=== PATIENT | male | born 1960 | race Two or more races ===

== ENCOUNTER 2024-02-28 08:36 | Inpatient (IN) | payer MEDICAID, OTHER ==
[~2024-02-28] VITALS: Ht 157.5 cm; Wt 75.3 kg
[2024-02-28] MEDS: IOHEXOL 300 MG/ML 100ML BOTTLE IJ ONE (09:28)
[2024-02-28 10:04] LABS: Basophils # (auto) 0 10 ^3/uL (0-0.2); Basophils % (auto) 0.2 % (0.0-2.0); Eosinophils # (auto) 0.4 10 ^3/uL (0-0.8); Eosinophils % (auto) 2.5 % (0.0-7.0); Hematocrit 32.5 % (41.0-53.0); Hemoglobin 11.1 g/dL (13.5-17.5); Lymphocytes # (auto) 1.9 10 ^3/uL (0.4-5.4); Lymphocytes % (auto) 12.2 % (10.0-50.0); Mean Corpuscular Hemoglobin 30.4 pg (28.0-32.0); Mean Corpuscular Hgb Conc. 34.2 g/dL (32.0-36.0); Mean Corpuscular Volume 88.8 fL (80.0-100.0); Monocytes % (auto) 6.3 % (0.0-12.0); Neutrophils # (auto) 12.1 10 ^3/uL (1.6-8.6); Neutrophils % (auto) 78.8 % (37.0-80.0); Platelet Count (auto) 301 10^3/uL (140-450); Red Blood Cells 3.66 10^6/uL (4.5-5.90); Red Cell Distribution Width 14.1 % (11.8-14.3); White Blood Cell 15.4 10^3/uL (4.4-10.8)
[2024-02-28 10:35] LABS: Alanine Aminotransferase 23 U/L (7-40); Albumin 3.7 g/dL (3.2-4.8); Alkaline Phosphatase 106 U/L (46-116); Anion Gap 7 (5-15); Aspartate Aminotransferase 19 U/L (13-40); BUN/Creatinine Ratio 30.7 (10.0-20.0); Bilirubin, Total 0.4 mg/dL (0.2-1.0); Blood Urea Nitrogen 31 mg/dL (9-23); Calcium 8.4 mg/dL (8.7-10.4); Carbon Dioxide 26 mmol/L (20-31); Chloride 100 mmol/L (98-107); Glucose 285 mg/dL (74-106); Lipase 34 U/L (12-53); Potassium 4.7 mmol/L (3.5-5.1); Sodium 133 mmol/L (136-145); Total Protein 7.1 g/dL (5.7-8.2)
[2024-02-28] MEDS: ONDANSETRON HCL 4 MG/2 ML VIAL IV ONE (11:19)
[2024-02-28] MEDS: SODIUM CHLORIDE 0.9% 1,000 ML IV ONE (11:19)
[2024-02-28] MEDS: MORPHINE SULFATE 4 MG/ML SYR/VIAL IV ONE (11:20)
[2024-02-28 15:20] VITALS: PULSE 96; RESP 16; O2SAT 99
[2024-02-28 18:27] LABS: Urine Bacteria None Seen /hpf (None Seen); Urine WBC None Seen /hpf (0 - 3)
[2024-02-28 18:52] LABS: Urine Blood Negative /uL (Negative); Urine Clarity Clear (Clear); Urine Color Light-Yellow (Yellow); Urine Protein, UAD TRACE (Negative); Urine Urobilinogen Normal (Negative); Urine pH 5.5 (5.0-9.0)
[2024-02-28 18:53] LABS: Urine Specific Gravity > 1.050 (1.001-1.035)
[2024-02-28] MEDS ORDERED: ONDANSETRON HCL 4 MG/2 ML VIAL IV PRN (19:00)
[2024-02-28] MEDS ORDERED: MORPHINE SULFATE INJ 2 MG/ml SYRG IV PRN (19:00)
[2024-02-28] MEDS ORDERED: DEXTROSE (50%) 50ML SYRG IV PRN (19:30)
[2024-02-28] MEDS ORDERED: ATOR10TA52 PO (19:32)
[2024-02-28] MEDS ORDERED: hydrALAZINE HCL 20 MG/ML VL IV PRN (19:45)
[2024-02-28] MEDS: SODIUM CHLORIDE 0.9% 1,000 ML IV SCH (20:44)
[2024-02-28 20:57] VITALS: PULSE 89; RESP 19; O2SAT 98
[2024-02-28] MEDS: ACCU-CHEK COMFORT CURVE STRIP VI SCH (22:22)
[2024-02-28] MEDS: ATORVASTATIN 20 MG TAB PO SCH (22:26)
[2024-02-28] MEDS: InsuLIN REG 1unit/0.01ml Soln (100units/ml) SC SCH (22:27)
[2024-02-28 22:45] VITALS: BP 105/70; PULSE 84; RESP 17; TEMP 98.7; O2SAT 98
[2024-02-28] MEDS ORDERED: METF-371 PO (23:02)
[2024-02-28] MEDS ORDERED: GLIP10TA9 PO (23:02)
[2024-02-28] MEDS ORDERED: ASPI-498 OR (23:02)
[2024-02-28] MEDS ORDERED: OMEP-448 PO (23:06)
[2024-02-28] MEDS ORDERED: LINA5TAB PO (23:06)
[2024-02-28] MEDS ORDERED: BENA20TA PO (23:08)
[2024-02-29] VITALS (10 sets, daily range): BP systolic 115–161; BP diastolic 65–71; PULSE 73–115; RESP 16–20; TEMP 97.8–99.3; O2SAT 95–100
[2024-02-29] MEDS: InsuLIN REG 1unit/0.01ml Soln (100units/ml) SC SCH (06:39)
[2024-02-29 08:27] LABS: Basophils # (auto) 0 10 ^3/uL (0-0.2); Basophils % (auto) 0.3 % (0.0-2.0); Eosinophils # (auto) 0.4 10 ^3/uL (0-0.8); Lymphocytes # (auto) 1.5 10 ^3/uL (0.4-5.4); Monocytes # (auto) 0.6 10 ^3/uL (0-1.3); Neutrophils # (auto) 5.4 10 ^3/uL (1.6-8.6)
[2024-02-29 08:33] LABS: Eosinophils % (auto) 4.7 % (0.0-7.0); Hematocrit 22.5 % (41.0-53.0); Hemoglobin 7.9 g/dL (13.5-17.5); Lymphocytes % (auto) 19.6 % (10.0-50.0); Mean Corpuscular Hemoglobin 31.2 pg (28.0-32.0); Mean Corpuscular Hgb Conc. 35.2 g/dL (32.0-36.0); Mean Corpuscular Volume 88.7 fL (80.0-100.0); Monocytes % (auto) 7.2 % (0.0-12.0); Neutrophils % (auto) 68.2 % (37.0-80.0); Platelet Count (auto) 209 10^3/uL (140-450); Red Blood Cells 2.53 10^6/uL (4.5-5.90); White Blood Cell 7.8 10^3/uL (4.4-10.8)
[2024-02-29 08:34] LABS: Chloride 106 mmol/L (98-107); Potassium 4.1 mmol/L (3.5-5.1); Sodium 136 mmol/L (136-145)
[2024-02-29 08:35] LABS: Anion Gap 3 (5-15); Calcium 7.7 mg/dL (8.7-10.4); Carbon Dioxide 27 mmol/L (20-31)
[2024-02-29 08:40] LABS: BUN/Creatinine Ratio 33.3 (10.0-20.0); Blood Urea Nitrogen 23 mg/dL (9-23)
[2024-02-29 08:43] LABS: Glucose 161 mg/dL (74-106)
[2024-02-29] MEDS ORDERED: PANTOPRAZOLE 40 MG/10 ML VIAL INJ IV SCH ×2 (10:00→22:00)
[2024-02-29] MEDS: hydroCHLOROthiazide 25 MG TAB PO SCH (11:00)
[2024-02-29] MEDS: BENAZEPRIL HCL 10 MG TAB PO SCH (11:00)
[2024-02-29 11:11] LABS: INR 1.07 (0.9-1.15); Prothrombin Time 11.3 sec (9.3-11.8)
[2024-02-29 12:11] LABS: Basophils # (auto) 0 10 ^3/uL (0-0.2); Basophils % (auto) 0.2 % (0.0-2.0); Eosinophils # (auto) 0.3 10 ^3/uL (0-0.8); Eosinophils % (auto) 3.5 % (0.0-7.0); Hematocrit 21.4 % (41.0-53.0); Hemoglobin 7.6 g/dL (13.5-17.5); Lymphocytes # (auto) 1.5 10 ^3/uL (0.4-5.4); Lymphocytes % (auto) 15.9 % (10.0-50.0); Mean Corpuscular Hemoglobin 31.1 pg (28.0-32.0); Mean Corpuscular Hgb Conc. 35.3 g/dL (32.0-36.0); Mean Corpuscular Volume 88.3 fL (80.0-100.0); Monocytes # (auto) 0.7 10 ^3/uL (0-1.3); Monocytes % (auto) 8.1 % (0.0-12.0); Neutrophils # (auto) 6.6 10 ^3/uL (1.6-8.6); Neutrophils % (auto) 72.3 % (37.0-80.0); Platelet Count (auto) 222 10^3/uL (140-450); Red Blood Cells 2.43 10^6/uL (4.5-5.90); Red Cell Distribution Width 14.1 % (11.8-14.3); White Blood Cell 9.2 10^3/uL (4.4-10.8)
[2024-02-29] MEDS ORDERED: MIDAZOLAM HCL 2MG/2ML 2ml VIAL (1mg/ml) ONE (15:40)
[2024-02-29] MEDS ORDERED: PROPOFOL 10 MG/ML 20 ML IV ONE (16:01)
[2024-02-29] MEDS ORDERED: ONDANSETRON HCL 4 MG/2 ML VIAL ONE (16:01)
[2024-02-29 18:09] LABS: Hematocrit 17.1 % (41.0-53.0)
[2024-02-29] MEDS: PANTOPRAZOLE 40mg/50ML NS AE 50 ML IV SCH (18:30)
[2024-02-29 18:48] LABS: INR 1.13 (0.9-1.15); Prothrombin Time 11.9 sec (9.3-11.8)
[2024-02-29] MEDS: ONDANSETRON HCL 4 MG/2 ML VIAL IV ONE (22:54)
[2024-02-29] MEDS: ACETAMINOPHEN 650 MG RECT SUPP PR PRN (22:56)
[2024-03-01] VITALS (18 sets, daily range): BP systolic 95–140; BP diastolic 51–78; PULSE 71–100; RESP 15–23; TEMP 97.9–98.9; O2SAT 93–98
[2024-03-01 07:41] LABS: Chloride 110 mmol/L (98-107); Potassium 3.6 mmol/L (3.5-5.1); Sodium 139 mmol/L (136-145)
[2024-03-01 07:42] LABS: Anion Gap 4 (5-15); Carbon Dioxide 25 mmol/L (20-31)
[2024-03-01 07:43] LABS: Calcium 7.3 mg/dL (8.7-10.4)
[2024-03-01 07:47] LABS: BUN/Creatinine Ratio 25.7 (10.0-20.0); Basophils # (auto) 0 10 ^3/uL (0-0.2); Blood Urea Nitrogen 18 mg/dL (9-23); Eosinophils # (auto) 0.2 10 ^3/uL (0-0.8); Glucose 140 mg/dL (74-106); Lymphocytes # (auto) 0.9 10 ^3/uL (0.4-5.4); Mean Corpuscular Hgb Conc. 34.1 g/dL (32.0-36.0); Monocytes # (auto) 0.5 10 ^3/uL (0-1.3); Neutrophils # (auto) 4.7 10 ^3/uL (1.6-8.6); Red Blood Cells 2.25 10^6/uL (4.5-5.90); Red Cell Distribution Width 14.2 % (11.8-14.3); White Blood Cell 6.3 10^3/uL (4.4-10.8)
[2024-03-01 07:49] LABS: Basophils % (auto) 0.3 % (0.0-2.0); Eosinophils % (auto) 2.6 % (0.0-7.0); Mean Corpuscular Hemoglobin 30.3 pg (28.0-32.0); Mean Corpuscular Volume 88.8 fL (80.0-100.0); Monocytes % (auto) 8.1 % (0.0-12.0); Platelet Count (auto) 196 10^3/uL (140-450)
[2024-03-01 07:52] LABS: Hemoglobin 6.8 g/dL (13.5-17.5)
[2024-03-01] MEDS ORDERED: CLINIMIX PER PHARMACY 0 ML IV SCH (09:00)
[2024-03-01 09:49] LABS: Magnesium 1.9 mg/dL (1.6-2.6)
[2024-03-01 09:50] LABS: Phosphorus 2.4 mg/dL (2.4-5.1)
[2024-03-01] MEDS: diphenhdrAMINE HCL 25 MG CAP PO ONE (11:34)
[2024-03-01] MEDS: ACETAMINOPHEN 325 MG TAB PO ONE (11:35)
[2024-03-01] MEDS ORDERED: SODIUM FERR GLUC 62.5MG/5ML 110 ML IV SCH (12:00)
[2024-03-01] MEDS ORDERED: IRON SUCROSE COMPLEX 100 ML IV SCH (12:00)
[2024-03-01] MEDS: SODIUM FERR GLUC 62.5MG/5ML 110 ML IV SCH (13:30)
[2024-03-01] MEDS: phytonadione 10 MG in SODIUM CHL 0.9% 50 ML IV ONE (14:34)
[2024-03-01] MEDS ORDERED: DEXTROSE (50%) 50ML SYRG IV PRN (14:45)
[2024-03-01] MEDS: POTASSIUM PHOSPHATE 22 MEQ in SODIUM CHL 0.9% 100 ML IV ONE (15:51)
[2024-03-01] MEDS: ACCU-CHEK COMFORT CURVE STRIP VI SCH (17:00)
[2024-03-01] MEDS: InsuLIN REG 1unit/0.01ml Soln (100units/ml) SC SCH (17:00)
[2024-03-01 18:33] LABS: Basophils # (auto) 0 10 ^3/uL (0-0.2); Eosinophils # (auto) 0.3 10 ^3/uL (0-0.8); Hemoglobin 8.3 g/dL (13.5-17.5); Lymphocytes # (auto) 1.4 10 ^3/uL (0.4-5.4)
[2024-03-01 18:35] LABS: Basophils % (auto) 0.3 % (0.0-2.0); Eosinophils % (auto) 4.6 % (0.0-7.0); Hematocrit 23.9 % (41.0-53.0); Mean Corpuscular Hgb Conc. 34.5 g/dL (32.0-36.0); Mean Corpuscular Volume 89.6 fL (80.0-100.0); Monocytes # (auto) 0.7 10 ^3/uL (0-1.3); Monocytes % (auto) 10.4 % (0.0-12.0); Neutrophils # (auto) 4.3 10 ^3/uL (1.6-8.6); Neutrophils % (auto) 63.7 % (37.0-80.0); Nucleated Red Blood Cells % 0.2 %; Platelet Count (auto) 194 10^3/uL (140-450); Red Blood Cells 2.67 10^6/uL (4.5-5.90); Red Cell Distribution Width 14.3 % (11.8-14.3); White Blood Cell 6.8 10^3/uL (4.4-10.8)
[2024-03-01] MEDS ORDERED: AMINO ACID INFUSION IN D10W 1,000 ML IV SCH (20:00)
[2024-03-02] VITALS (8 sets, daily range): BP systolic 101–130; BP diastolic 61–71; PULSE 75–83; RESP 16–19; TEMP 97.6–98.7; O2SAT 96–100
[2024-03-02 05:40] LABS: Basophils # (auto) 0 10 ^3/uL (0-0.2); Basophils % (auto) 0.2 % (0.0-2.0); Eosinophils # (auto) 0.1 10 ^3/uL (0-0.8); Eosinophils % (auto) 1.3 % (0.0-7.0); Hematocrit 27.2 % (41.0-53.0); Hemoglobin 9.4 g/dL (13.5-17.5); Lymphocytes # (auto) 1.4 10 ^3/uL (0.4-5.4); Lymphocytes % (auto) 13.9 % (10.0-50.0); Mean Corpuscular Hemoglobin 31.1 pg (28.0-32.0); Mean Corpuscular Hgb Conc. 34.5 g/dL (32.0-36.0); Mean Corpuscular Volume 90.2 fL (80.0-100.0); Monocytes # (auto) 0.7 10 ^3/uL (0-1.3); Monocytes % (auto) 6.9 % (0.0-12.0); Neutrophils # (auto) 7.6 10 ^3/uL (1.6-8.6); Neutrophils % (auto) 77.7 % (37.0-80.0); Nucleated Red Blood Cells % 0.2 %; Platelet Count (auto) 216 10^3/uL (140-450); Red Blood Cells 3.01 10^6/uL (4.5-5.90); Red Cell Distribution Width 14.1 % (11.8-14.3); White Blood Cell 9.8 10^3/uL (4.4-10.8)
[2024-03-02 06:04] LABS: Alanine Aminotransferase 19 U/L (7-40); Alkaline Phosphatase 63 U/L (46-116); Anion Gap 7 (5-15); Aspartate Aminotransferase 25 U/L (13-40); BUN/Creatinine Ratio 16.2 (10.0-20.0); Blood Urea Nitrogen 11 mg/dL (9-23); Calcium 7.6 mg/dL (8.7-10.4); Carbon Dioxide 25 mmol/L (20-31); Chloride 106 mmol/L (98-107); Glucose 142 mg/dL (74-106); Potassium 3.4 mmol/L (3.5-5.1); Sodium 138 mmol/L (136-145)
[2024-03-02 06:05] LABS: Bilirubin, Total 0.4 mg/dL (0.2-1.0); Phosphorus 2.1 mg/dL (2.4-5.1); Total Protein 5.4 g/dL (5.7-8.2)
[2024-03-02] MEDS: POTASSIUM EFFERVESENT TAB 25 MEQ PO ONE (10:32)
[2024-03-02] MEDS ORDERED: SODIUM FERR GLUC 62.5MG/5ML 110 ML IV SCH (12:00)
[2024-03-02] MEDS ORDERED: PANT40TA2 PO (12:45)
== END 2024-03-02 17:09 | disposition home or self-care (01) | DRG 240 ==
LOC: EDBD 08:36 → ER 08:36 → OVERFLOW 18:51 → TELE-CENTR 18:51 → CENTRAL 22:42 → TELE-CENTR 02-29 18:12
PROVIDERS: ADMIT Internal Medicine; ATTEND Emergency Medicine
PROC: 0DB68ZX Excision of Stomach, Via Natural or Artificial Opening Endoscopic, Diagnostic (ICD-10-PCS; 2024-02-29)
PROC: 0DB98ZX Excision of Duodenum, Via Natural or Artificial Opening Endoscopic, Diagnostic (ICD-10-PCS; principal; 2024-02-29 15:31)
PROC: 30233K1 Transfusion of Nonautologous Frozen Plasma into Peripheral Vein, Percutaneous Approach (ICD-10-PCS; 2024-03-01)
PROC: 30233N1 Transfusion of Nonautologous Red Blood Cells into Peripheral Vein, Percutaneous Approach (ICD-10-PCS; 2024-03-02)
DX: C49.A2 Gastrointestinal stromal tumor of stomach (principal); R65.10 Systemic inflammatory response syndrome (SIRS) of non-infectious origin without acute organ dysfunction; D50.9 Iron deficiency anemia, unspecified; E11.65 Type 2 diabetes mellitus with hyperglycemia; E78.5 Hyperlipidemia, unspecified; D63.0 Anemia in neoplastic disease; I10 Essential (primary) hypertension; K29.70 Gastritis, unspecified, without bleeding; K57.30 Diverticulosis of large intestine without perforation or abscess without bleeding; K21.9 Gastro-esophageal reflux disease without esophagitis; Z87.891 Personal history of nicotine dependence; Z80.0 Family history of malignant neoplasm of digestive organs; Z79.82 Long term (current) use of aspirin; Z79.899 Other long term (current) drug therapy
CPT/HCPCS: 36415; 74177; 80048; 80053; 81001; 82962; 83036; 83690; 83735; 84100; 85014; 85018; 85025; 85610; 85730; 86850; 86900; 86901; 86920; 96374; 96375; 99291; G0378; J1815; J2250; J2405; J2704; J3430

== ENCOUNTER 2024-05-10 15:21 | Inpatient (IN) | payer MEDICAID ==
[~2024-05-10] VITALS: Ht 157.5 cm; Wt 68.7 kg
[~2024-05-10 15:21] MED LIST: ATOR10TA52 PO; BENA20TA PO; GLIP10TA9 PO; LINA5TAB PO; METF-371 PO; PANT40TA2 PO
[2024-05-10 16:25] LABS: Hematocrit 31.8 % (41.0-53.0); Hemoglobin 10.3 g/dL (13.5-17.5); Mean Corpuscular Hemoglobin 25.6 pg (28.0-32.0); Mean Corpuscular Hgb Conc. 32.4 g/dL (32.0-36.0); Mean Corpuscular Volume 79.1 fL (80.0-100.0); Platelet Count (auto) 159 10^3/uL (140-450); Red Blood Cells 4.02 10^6/uL (4.5-5.90); Red Cell Distribution Width 16.2 % (11.8-14.3); White Blood Cell 13.3 10^3/uL (4.4-10.8)
[2024-05-10 16:31] LABS: Basophils % (manual) 0 (0.0-2.0); Blast Cells 0; Eosinophils % (manual) 0 (0-7); Metamyelocytes % 0; Myelocytes % 0; Promyelocytes % 0; Reactive Lymphocytes 0
--- NOTE | 2024-05-10 16:34 | DVH ---
Exam: CT CT AB PEL WO CON-NO ORAL OR IV History: abd pain, black stool, h/o stomach CA Comparison Study: 02/28/2024 TECHNIQUE: Multidetector CT of the abdomen was performed from lung bases to pubic symphysis. Imaging was performed without IV contrast. Axial, coronal and sagittal multiplanar reformats were obtained fr om the axial data set by the technologist. Radiation Dose Information: CT Dose: CTDI volume is 7.55 mGy. Dose-length product is 383.34 mGy*cm FINDINGS: Evaluation of solid organs is limited due to lack of intravenous contrast use. Findings: Lung Bases: No acute or significant lung base finding. Normal heart size. No pleural or pericardial effusion. Liver: The liver is normal in size. No focal lesions. Gallbladder and Biliary Tree: Unremarkable Spleen: Unremarkable Pancreas: The pancreas is grossly normal in appearance. Adrenal Glands: Unremarkable Kidneys: 2.3 cm round cortical lesion right kidney changed from 02/28/2024 Bladder: Grossly unremarkable for degree of distention. Bowel: Poor evaluation of the stomach. There is no oral or IV contrast given.. Deformity 2 the stomac h is noted measuring approximately 8 cm which may be the mass previously described. There is also a 3 4 cm mass in the lesser curvature of the stomach previously described on the study of 07/2023. Small bowel and colon are normal in caliber and distribution. The appendix is visualized and appears norm al. Ascites: Absent Lymphadenopathy: No mesenteric, retroperitoneal or periportal lymphadenopathy. Abdominal Wall and Mesentery: Unremarkable. Vasculature: The visualized abdominal aorta is normal in size and caliber. Evaluation of abdominal a nd pelvic vessels is limited due to lack of intravenous contrast. Pelvic Organs: Unremarkable Musculoskeletal: No aggressive focal bony lesions, acute fractures or dislocation. Soft tissues: Unremarkable IMPRESSION: 1. No free air or free fluid. 2. Gastric mass can not be well evaluated without oral and/or IV contrast. Gastric mass was noticed o n prior study of 02/28/2024. There is 8 cm deformity to the stomach which may represent the previousl y noted gastric mass. There is also a 3.823.9 cm mass along the lesser curvature of the stomach noted on prior study of 02/28/2024. 3. There are no intrahepatic masses seen. 4. No calcified gallstones. 5. No nephrolithiasis or hydronephrosis. 6. No findings to suggest bowel obstruction. Radiation optimization: All CT scans at this facility use at least one of these dose optimization te chniques: automated exposure control mA and/or kV adjustment per patient size (includes targeted exa ms where dose is matched to clinical indication) or iterative reconstruction.
[2024-05-10 16:36] LABS: Anion Gap 6 (5-15); BUN/Creatinine Ratio 16.3 (10.0-20.0); Blood Urea Nitrogen 13 mg/dL (9-23); Carbon Dioxide 29 mmol/L (20-31); Chloride 99 mmol/L (98-107); Magnesium 2.1 mg/dL (1.6-2.6); Potassium 3.9 mmol/L (3.5-5.1); Total Protein 6.6 g/dL (5.7-8.2)
[2024-05-10 16:39] LABS: Alkaline Phosphatase 125 U/L (46-116); Aspartate Aminotransferase 96 U/L (13-40); Glucose 177 mg/dL (74-106); Sodium 134 mmol/L (136-145)
--- NOTE | 2024-05-10 16:39 | ED.PDOC ---
GI ASSESSMENT HPI Comments HPI: Poor Historian. 63-year-old male with a history of stomach cancer started chemotherapy this past Sunday. Two two days prior to the chemotherapy he has been having some black stool ongoing since then until today. Patient has left upper quadrant pain from his stomach cancer. Patient is here for pain without any nausea or vomiting or diarrhea. Also has this persistent black stool. Patient is not on blood thinners. VITALS: Temp: 98.9 F RR: 16 02 sat : 97 % on room air HR: 90 BP: 137/76 PMH: stomach cancer, hyperlipidemia, htn, PSH: denies Social history: denies tobacco use, denies ETOH use, denies drug use Medications: metformin, atorvastatin, glipizide, pantoprazole, compazine, Zofran, Allergies: denies REVIEW OF SYSTEMS: CONSTITUTIONAL: Denies acute: fever, diaphoresis, chills, HEAD: Denies acute: headache, photophobia Eyes: Denies acute: Double vision, vision loss, eye pain, eye discharge. EARS: Denies acute: tinnitus, hearing loss, ear discharge, ear pain, THROAT: Denies acute: sore throat, swelling, difficulty swallowing , pain with swallowing, change in voice. NECK: Denies acute: neck pain, neck swelling, stiff neck. HEART: Denies acute : chest pain, palpitations, LUNGS: Denies acute: SOB, wheezing, cough, hemoptysis ABDOMEN: Denies acute: Nausea, Vomiting, diarrhea, hematemesis, hematochezia SKIN: Denies acute: rash, redness, lesions, itchiness. EXTREMITIES: Denies acute: calf pain, numbness, tingling, weakness, denies pain in extremity. Denies acute: Low back pain. Neuro: Denies acute: focal neurological deficit, motor or sensory focal neurological deficit, tremors, seizure like activity, confusion, dizziness, change in mental status, loss of bowel or bladder function, cauda equina like symptoms. : Denies acute: dysuria, hematuria, flank pain, increase in urinary frequency. PSYCH: Denies acute: hallucination, suicidal ideation, homicidal ideation. PHYSICAL EXAM: General: no acute distress, awake and alert. Head: normocephalic, atraumatic. Neck: supple, trachea is midline, no swelling. Throat: Normal phonation. Eyes:, no erythema, no purulent discharge, no proptosis, no icterus. Heart: regular rate, regular rhythm, no significant murmur appreciated. Lungs: no apparent respiratory distress, Able to speak in full sentences. No wheezing, no rhonchi, no crackles. No stridors Clear to auscultation bilaterally. Abdomen: Left upper quadrant tender to palpation, non distended, soft, no guarding, no rebound, + bowel sounds. Neuro: Awake, Alert, oriented to name, self, situation, follows commands GCS=15. Speech is normal. Skin: no petechia, no purpura, no cyanosis, non-pale, not jaundice. Lower extremities: --no - Pitting edema no deformity, no focal swelling, no calf TTP. Makes eye contact. moves all four extremities. Face: no apparent facial droop. Chief Complaint: Abdominal Pain Time Seen by MD: 15:24 Primary Care Provider: MAXIMILIANO ONCOLOGIST, PCP SIMONE Reviewed Notes: Nurses Notes, Allergies Allergies: Coded Allergies: NO KNOWN ALLERGIES (Unverified , 02/28/24) Home Meds Active Scripts Pantoprazole Sodium Sesquihydr (Protonix) 40 Mg Tab, 40 MG PO BID for 30 Days, #60 TAB 2 Refills Prov:KATHERINE HERNANDEZ RESIDENT 03/02/24 Reported Medications Benazepril Hcl (Lotensin) 20 Mg Tab, 1 TAB PO DAILY, #30 TAB 5 Refills 02/28/24 Linagliptin Base (TRADJENTA) 5 Mg Tab, 1 TAB PO DAILY, #90 TAB 1 Refill 02/28/24 Glipizide (Glipizide) 10 Mg Tab, 1 TAB PO DAILY, #60 TAB 5 Refills 02/28/24 Metformin Hydrochloride (Metformin Hcl) 850 Mg Tab, 1 TAB PO DAILY, #60 TAB 5 Refills 02/28/24 Atorvastatin Calcium (ATORVASTATIN CALCIUM) 10 Mg Tab, 10 MG PO HS 02/28/24 Information Source: Patient Mode of Arrival: EMS Past Medical History PAST MEDICAL HISTORY: Denies Surgical History: Denies all surgeries Family History Family History: Reviewed,noncontributory to illness Social History Smoker: Non-Smoker Alcohol: Denies ETOH Use Drugs: Denies Drug Use Was a procedure done? Was a procedure done?: No X-Ray, Labs, Meds, VS Vital Signs Date Time Temp Pulse Resp B/P (MAP) Pulse Ox O2 Delivery O2 Flow Rate FiO2 05/10/24 15:25 98.9 90 16 137/76 (96) 97 05/10/24 15:22 90 Lab Test 05/10/24 17:00 05/10/24 16:05 Range/Units Troponin I High Sensitivity < 3 L < 3 L </=54 ng/L White Blood Count 13.3 H 4.4-10.8 10^3/uL Red Blood Count 4.02 L 4.5-5.90 10^6/uL Hemoglobin 10.3 L 13.5-17.5 g/dL Hematocrit 31.8 L 41.0-53.0 % Mean Corpuscular Volume 79.1 L 80.0-100.0 fL Mean Corpuscular Hemoglobin 25.6 L 28.0-32.0 pg Mean Corpuscular Hemoglobin Concent 32.4 32.0-36.0 g/dL Red Cell Distribution Width 16.2 H 11.8-14.3 % Platelet Count 159 140-450 10^3/uL Mean Platelet Volume 8.3 6.9-10.8 fL Neutrophils (%) (Auto) 37.0-80.0 % Lymphocytes (%) (Auto) 10.0-50.0 % Monocytes (%) (Auto) 0.0-12.0 % Basophils (%) (Auto) 0.0-2.0 % Neutrophils # (Auto) 1.6-8.6 10 ^3/uL Lymphocytes # (Auto) 0.4-5.4 10 ^3/uL Monocytes # (Auto) 0-1.3 10 ^3/uL Differential Total Cells Counted 100.0 100 Neutrophils % (Manual) 72 37.0-80.0 Band Neutrophils % (Manual) 16 Lymphocytes % (Manual) 10 10.0-50.0 Monocytes % (Manual) 2 0-12 Eosinophils % (Manual) 0 0-7 Basophils % (Manual) 0 0.0-2.0 Metamyelocytes % (manual) 0 Myelocytes % (Manual) 0 Promyelocytes % (Manual) 0 Blast Cells % (Manual) 0 Reactive Lymphocytes 0 Platelet Estimate [place] Large Platelets Few Hypochromasia (manual) Slight Anisocytosis (manual) Slight Microcytosis Slight Sodium Level 134 L 136-145 mmol/L Potassium Level 3.9 3.5-5.1 mmol/L Chloride Level 99 98-107 mmol/L Carbon Dioxide Level 29 20-31 mmol/L Anion Gap 6 5-15 Blood Urea Nitrogen 13 9-23 mg/dL Creatinine 0.80 0.700-1.30 mg/dL Glomerular Filtration Rate Calc 101 >90 mL/min BUN/Creatinine Ratio 16.3 10.0-20.0 Serum Glucose 177 H 74-106 mg/dL Lactic Acid Level 1.3 0.4-2.0 mmol/L Calcium Level 8.3 L 8.7-10.4 mg/dL Magnesium Level 2.1 1.6-2.6 mg/dL Total Bilirubin 0.3 0.2-1.0 mg/dL Aspartate Amino Transferase (AST) 96 H 13-40 U/L Alanine Aminotransferase (ALT) 53 H 7-40 U/L Alkaline Phosphatase 125 H 46-116 U/L B-Type Natriuretic Peptide 18.58 0-100 pg/mL Total Protein 6.6 5.7-8.2 g/dL Albumin 3.1 L 3.2-4.8 g/dL Lipase 26 12-53 U/L [place] [id number] Ph: [phone] DIAGNOSTIC IMAGING Diagnostic Imaging Report : [id number] Signed PATIENT: LORETA ELENA ACCT: [id number] UNIT: [id number] : 1960 LOC: ER ROOM / BED: / AGE / SEX: 63 / M ADM STATUS: REG ER SERVICE [id number] ORDERING PHYSICIAN: YOMI BARRERA DO PROCEDURE(s): ABPL - CT AB PEL WO CON-NO ORAL OR IV REASON: abd pain, black stool, h/o stomach CA ORDER NUMBER(s): [id number], ACCESSION NUMBER(s): [id number] Exam: CT CT AB PEL WO CON-NO ORAL OR IV History: abd pain, black stool, h/o stomach CA Comparison Study: 02/28/2024 TECHNIQUE: Multidetector CT of the abdomen was performed from lung bases to pubic symphysis. Imaging was performed without IV contrast. Axial, coronal and sagittal multiplanar reformats were obtained from the axial data set by the technologist. Radiation Dose Information: CT Dose: CTDI volume is 7.55 mGy. Dose-length product is 383.34 mGy*cm FINDINGS: Evaluation of solid organs is limited due to lack of intravenous contrast use. Findings: Lung Bases: No acute or significant lung base finding. Normal heart size. No pleural or pericardial effusion. Liver: The liver is normal in size. No focal lesions. Gallbladder and Biliary Tree: Unremarkable Spleen: Unremarkable Pancreas: The pancreas is grossly normal in appearance. Adrenal Glands: Unremarkable Kidneys: 2.3 cm round cortical lesion right kidney changed from 02/28/2024 Bladder: Grossly unremarkable for degree of distention. Bowel: Poor evaluation of the stomach. There is no oral or IV contrast given.. Deformity 2 the stomach is noted measuring approximately 8 cm which may be the mass previously described. There is also a 3 4 cm mass in the lesser curvature of the stomach previously described on the study of 07/2023. Small bowel and colon are normal in caliber and distribution. The appendix is visualized and appears normal. Ascites: Absent Lymphadenopathy: No mesenteric, retroperitoneal or periportal lymphadenopathy. Abdominal Wall and Mesentery: Unremarkable. Vasculature: The visualized abdominal aorta is normal in size and caliber. Evaluation of abdominal and pelvic vessels is limited due to lack of intravenous contrast. Pelvic Organs: Unremarkable Musculoskeletal: No aggressive focal bony lesions, acute fractures or dislocation. Soft tissues: Unremarkable IMPRESSION: 1. No free air or free fluid. 2. Gastric mass can not be well evaluated without oral and/or IV contrast. Gastric mass was noticed on prior study of 02/28/2024. There is 8 cm deformity to the stomach which may represent the previously noted gastric mass. There is also a 3.823.9 cm mass along the lesser curvature of the stomach noted on prior study of 02/28/2024. 3. There are no intrahepatic masses seen. 4. No calcified gallstones. 5. No nephrolithiasis or hydronephrosis. 6. No findings to suggest bowel obstruction. Radiation optimization: All CT scans at this facility use at least one of these dose optimization techniques: automated exposure control mA and/or kV adjustment per patient size (includes targeted exams where dose is matched to clinical indication) or iterative reconstruction. ATED BY: JUAN ELIZALDE Jr. DO DICTATED DATE/TIME: 05/10/241631 SIGNED BY: JUAN ELIZALDE Jr., DO SIGNED DATE/TIME: 05/10/24 163 CC: Patient Education/Counseling: Diagnosis, Treatment Family Education/Counseling: No Family Present Additional Information Patient presented with the above HPI.----- abdominal pain -workup was initiated. patient was found with the above mentioned diagnosis. the following medications were ordered: IV fluids, fentanyl, pantoprazole, Zofran, the following tests were ordered: troponin x3, EKG x1 UA, magnesium, lactic acid, lipase, CBC, CMP, BNP, CT abdomen and pelvis without contrast Patient ED course and VS have been stabilized. Patient has been reassessed in the ED and remained in a stable condition. Patient has been observed in the ED adequate length of time to insure improvement/stability. Escalation of care considered: Consideration of escalation to observation or admission. patient was ADMITTED to the medicine team for further evaluation and treatment of their presentation. All the reports of any imaging studies that were ordered by myself were reviewed by myself. Departure 1 Departure Time of Disposition: 16:49 Impression: Primary Impression: Melena Additional Impressions: Abdominal pain History of stomach cancer Disposition: ADMITTED INPATIENT Admit to: Tele Condition: Other Discharged With: Self I personally scribed for YOMI BARRERA DO ([email or web address]) on 05/10/24 at 16:39. Janice ctronically submitted by Erika Schmitz (ALICE). I personally scribed for YOMI BARRERA DO ([email or web address]) on 05/10/24 at 19:15. Electronically submitted by Erika OTERO). I personally scribed for YOMI BARRERA DO ([email or web address]) on 05/10/24 at 19:16. Electronically submitted by Erika OTERO). YOMI BARRERA DO May 10, 2024 16:39
[2024-05-10 16:40] LABS: Alanine Aminotransferase 53 U/L (7-40); Albumin 3.1 g/dL (3.2-4.8); Bilirubin, Total 0.3 mg/dL (0.2-1.0); Calcium 8.3 mg/dL (8.7-10.4)
[2024-05-10 16:51] LABS: Lipase 26 U/L (12-53)
[2024-05-10 17:26] LABS: Anisocytosis Slight; Band Neutrophils % (manual) 16; Hypochromia Slight; Large Platelets FEW; Lymphocytes % (manual) 10 (10.0-50.0); Monocytes % (manual) 2 (0-12); Platelet Estimate Adequa
--- NOTE | 2024-05-10 19:01 | ECG ---
[facility] Test Date: 2024-05-10 Test Time: 15:22:14 Pat Name: LORETA ELENA Department: ED Room: 0216 Gender: M Engagement Executive: PERLA : 1960 Requested By: YOMI BARRERA Order Number: [id number] Reading MD: Channing Grimm Measurements Intervals [place] Rate: 90 P: 41 [place]: 141 QRS: 82 QRSD: 75 T: 32 QT: 351 QTc: 430 Interpretive Statements Sinus rhythm Borderline right axis deviation Minimal ST depression, inferior leads Electronically Signed On 05-16-2024 9:58:07 PST by Channing Grimm Please click the below link to view image of tracing.
[2024-05-10] MEDS ORDERED: DEXTROSE (50%) 50ML SYRG IV PRN (20:00)
[2024-05-10] MEDS ORDERED: DOCUSATE SOD 100 MG CAP PO PRN (20:00)
[2024-05-10] MEDS ORDERED: ACETAMINOPHEN 325 MG TAB PO PRN (20:00)
[2024-05-10] MEDS ORDERED: NITROGLYCERIN 0.4 MG SL TAB SL PRN (23:15)
[2024-05-10] MEDS ORDERED: MORPHINE SULFATE INJ 2 MG/ml SYRG IV PRN (23:15)
--- NOTE | 2024-05-10 23:24 | DVHHP2 ---
History of Present Illness Reason for Visit: Acute abdominal pain History of Present Illness Patient is a 63-year-old male with past medical history of colon cancer started on chemotherapy this past Sunday, hyperlipidemia, and hypertension presented to [facility] ED with complaint of acute abdominal pain. Patient reports he has been having some black stools ongoing until today, left upper quadrant abdominal pain, rating 7/10 numeric scale, getting worse today that prompted this visit. Patient was seen and evaluated in the ED, laboratory data shows WBC 13.3, hemoglobin 10.3, hematocrit 31.8, sodium 134, potassium 3.9, BUN 13, creatinine 0.80, glucose 177, BNP 18.58, albumin 3.1, lipase 26, AST 96, ALT 53, troponin. Abdomen/pelvis CT showed no intrahepatic mass, no calcified gallstones, no bowel obstructions. Patient was started on IV antibiotic regimen Rocephin, please see medication orders section in the computer. On my assessme nt, patient denies chest pain, no headache, no dizziness, no shortness of breath, no nausea, no vomiting, no fever, no chills. Patient was admitted for further evaluation and medical management. Past Medical History Colon cancer, hyperlipidemia, HTN Past Surgical History Denies all surgeries Family History Reviewed, noncontributory to the management of this case. Past Social History The patient lives at home, denies smoking, alcohol or illicit drugs abuse. Review of Systems Constitutional: Yes: Weakness; No: Fever, Chills, Sweats, Malaise, Other Eyes: No: Pain, Vision change, Conjunctivae inflammation, Eyelid inflammation, Other, Redness ENT: No: Ear pain, Ear discharge, Nose pain, Nose discharge, Nose congestion, Mouth pain, Mouth swelling, Throat pain, Throat swelling, Other Respiratory: No: Cough, Dry, Shortness of breath, SOB with excertion, Wheezing, Hemoptysis, Pleuritic Pain, Sputum, Wheezing, Other Cardiovascular: No: Chest Pain, Palpitations, Orthopnea, Paroxysmal Noc. Dyspnea, Edema, Lt Headedness, Other Gastrointestinal: Abdominal Pain; No: Nausea, Vomiting, Diarrhea, Constipation, Melena, Hematochezia, Other Genitourinary: No Dysuria, No Frequency, No Incontinence, No Hematuria, No Retention, No Other Musculoskeletal: No: other, neck pain, shoulder pain, arm pain, back pain, hand pain, leg pain, foot pain Skin: No: Rash, Lesions, Jaundice, Bruising, Other Neurological: No: Weakness, Numbness, Incoordination, Change in speech, Confusion, Seizures, Other Allergies: Coded Allergies: NO KNOWN ALLERGIES (Unverified , 02/28/24) Medications Current Medications Medications Dose Ordered Sig/Polina Route Start Time Stop Time Status Last Admin Dose Admin Benazepril HCl 20 mg DAILY PO 05/11/24 10:00 Atorvastatin Calcium 10 mg HS PO 05/10/24 22:00 Pantoprazole Sodium 40 mg DAILY IV 05/11/24 10:00 Diagnostic Test (Pha) 1 strip ACHS 05/10/24 22:00 Insulin Human Regular HS SC 05/10/24 22:00 Insulin Human Regular AC SC 05/11/24 07:00 Dextrose 50 ml UD PRN IV 05/10/24 20:00 Sodium Chloride 1,000 ml @ 60 mls/hr [id number] IV 05/10/24 20:00 Acetaminophen/ Hydrocodone Bitart 1 tab Q4HP PRN PO 05/10/24 20:00 Ondansetron HCl 4 mg Q4HP PRN IV 05/10/24 20:00 Docusate Sodium 100 mg BIDPRN PRN PO 05/10/24 20:00 Acetaminophen 650 mg Q6HP PRN PO 05/10/24 20:00 Morphine Sulfate 2 mg Q4HPRN PRN IV 05/10/24 20:00 Exam Vital Signs Vital Signs Date Time Temp Pulse Resp B/P (MAP) Pulse Ox O2 Delivery O2 Flow Rate FiO2 05/10/24 19:58 109 05/10/24 15:25 98.9 16 137/76 (96) 97 General Appearance: Alert, Oriented X3, Cooperative, No acute distress HEENT: Atraumatic, PERRLA, EOMI, Mucous membr. moist/pink Respiratory: Clear to auscultation, Normal air movement Cardiovascular: Regular rate, Normal S1, Normal S2, No murmurs Abdominal: Normal bowel sounds, Soft, No hepatospenomegaly, No masses, Other (Reports tenderness) Extremities: No clubbing, No cyanosis, No edema, Normal pulses, No tenderness/swelling Skin: No rashes, No breakdown, No significant lesion Neuro: Normal speech, Normal tone, Sensation intact, Cranial nerves 3-12 NL, Reflexes 2+, Other (Generalized weakness) Psych/Mental Status: Mental status NL, Mood NL Labs/Xrays Labs Test 05/10/24 17:00 05/10/24 16:05 Range/Units Troponin I High Sensitivity < 3 L </=54 ng/L White Blood Count 13.3 H 4.4-10.8 10^3/uL Red Blood Count 4.02 L 4.5-5.90 10^6/uL Hemoglobin 10.3 L 13.5-17.5 g/dL Hematocrit 31.8 L 41.0-53.0 % Mean Corpuscular Volume 79.1 L 80.0-100.0 fL Mean Corpuscular Hemoglobin 25.6 L 28.0-32.0 pg Mean Corpuscular Hemoglobin Concent 32.4 32.0-36.0 g/dL Red Cell Distribution Width 16.2 H 11.8-14.3 % Platelet Count 159 140-450 10^3/uL Mean Platelet Volume 8.3 6.9-10.8 fL Neutrophils (%) (Auto) 37.0-80.0 % Lymphocytes (%) (Auto) 10.0-50.0 % Monocytes (%) (Auto) 0.0-12.0 % Basophils (%) (Auto) 0.0-2.0 % Neutrophils # (Auto) 1.6-8.6 10 ^3/uL Lymphocytes # (Auto) 0.4-5.4 10 ^3/uL Monocytes # (Auto) 0-1.3 10 ^3/uL Differential Total Cells Counted 100.0 100 Neutrophils % (Manual) 72 37.0-80.0 Band Neutrophils % (Manual) 16 Lymphocytes % (Manual) 10 10.0-50.0 Monocytes % (Manual) 2 0-12 Eosinophils % (Manual) 0 0-7 Basophils % (Manual) 0 0.0-2.0 Metamyelocytes % (manual) 0 Myelocytes % (Manual) 0 Promyelocytes % (Manual) 0 Blast Cells % (Manual) 0 Reactive Lymphocytes 0 Platelet Estimate [place] Large Platelets Few Hypochromasia (manual) Slight Anisocytosis (manual) Slight Microcytosis Slight Sodium Level 134 L 136-145 mmol/L Potassium Level 3.9 3.5-5.1 mmol/L Chloride Level 99 98-107 mmol/L Carbon Dioxide Level 29 20-31 mmol/L Anion Gap 6 5-15 Blood Urea Nitrogen 13 9-23 mg/dL Creatinine 0.80 0.700-1.30 mg/dL Glomerular Filtration Rate Calc 101 >90 mL/min BUN/Creatinine Ratio 16.3 10.0-20.0 Serum Glucose 177 H 74-106 mg/dL Lactic Acid Level 1.3 0.4-2.0 mmol/L Calcium Level 8.3 L 8.7-10.4 mg/dL Magnesium Level 2.1 1.6-2.6 mg/dL Total Bilirubin 0.3 0.2-1.0 mg/dL Aspartate Amino Transferase (AST) 96 H 13-40 U/L Alanine Aminotransferase (ALT) 53 H 7-40 U/L Alkaline Phosphatase 125 H 46-116 U/L B-Type Natriuretic Peptide 18.58 0-100 pg/mL Total Protein 6.6 5.7-8.2 g/dL Albumin 3.1 L 3.2-4.8 g/dL Lipase 26 12-53 U/L PATIENT: LORETA ELENA ACCT: [id number] UNIT: [id number] : 1960 LOC: ER ROOM / BED: / AGE / SEX: 63 / M ADM STATUS: REG ER SERVICE 1526 ORDERING PHYSICIAN: YOMI BARRERA DO PROCEDURE(s): ABPL - CT AB PEL WO CON-NO ORAL OR IV REASON: abd pain, black stool, h/o stomach CA ORDER NUMBER(s): [id number], ACCESSION NUMBER(s): [id number] Exam: CT CT AB PEL WO CON-NO ORAL OR IV History: abd pain, black stool, h/o stomach CA Comparison Study: 02/28/2024 TECHNIQUE: Multidetector CT of the abdomen was performed from lung bases to pubic symphysis. Imaging was performed without IV contrast. Axial, coronal and sagittal multiplanar reformats were obtained from the axial data set by the technologist. Radiation Dose Information: CT Dose: CTDI volume is 7.55 mGy. Dose-length product is 383.34 mGy*cm FINDINGS: Evaluation of solid organs is limited due to lack of intravenous contrast use. Findings: Lung Bases: No acute or significant lung base finding. Normal heart size. No ple ural or pericardial effusion. Liver: The liver is normal in size. No focal lesions. Gallbladder and Biliary Tree: Unremarkable Spleen: Unremarkable Pancreas: The pancreas is grossly normal in appearance. Adrenal Glands: Unremarkable Kidneys: 2.3 cm round cortical lesion right kidney changed from 02/28/2024 Bladder: Grossly unremarkable for degree of distention. Bowel: Poor evaluation of the stomach. There is no oral or IV contrast given. Deformity 2 the stomach is noted measuring approximately 8 cm which may be the mass previously described. There is also a 3 4 cm mass in the lesser curvature of the stomach previously described on the study of 07/2023. Small bowel and colon are normal in caliber and distribution. The appendix is visualized and appears normal. Ascites: Absent Lymphadenopathy: No mesenteric, retroperitoneal or periportal lymphadenopathy. Abdominal Wall and Mesentery: Unremarkable. Vasculature: The visualized abdominal aorta is normal in size and caliber. Evaluation of abdominal and pelvic vessels is limited due to lack of intravenous contrast. Pelvic Organs: Unremarkable Musculoskeletal: No aggressive focal bony lesions, acute fractures or dislocation. Soft tissues: Unremarkable IMPRESSION: 1. No free air or free fluid. 2. Gastric mass can not be well evaluated without oral and/or IV contrast. Gastric mass was noticed on prior study of 02/28/2024. There is 8 cm deformity to the stomach which may represent the previously noted gastric mass. There is also a 3.823.9 cm mass along the lesser curvature of the stomach noted on prior study of 02/28/2024. 3. There are no intrahepatic masses seen. 4. No calcified gallstones. 5. No nephrolithiasis or hydronephrosis. 6. No findings to suggest bowel obstruction. Assessment/Plan Assessment/Plan Melena Acute abdominal pain Anemia of chronic disease Leukocytosis, unspecified History of Colon cancer Diabetes mellitus with hyperglycemia Plan 1. Admit to telemetry unit 2. Breathing treatment 3. Pain control management 4. IV antibiotic management 5. Management of fluids and electrolytes 6. Consultation for hospitalist 7. Diagnostic test abdomen/pelvis CT 8. DVT prophylaxis-on SCDs 9. Repeat labs CBC, CMP in a.m. 10. Home medication reviewed and reconciled 11. Continue with current medical management 12. Treatment plan discussed with patient and RN. Patient verbalized understanding. Plan discussed with: Patient, Son (At bedside), Other (RN) My Orders Orders - KELVIN OGLESBY DNP Procedure Category Date Status Time Benazepril Hcl Tablet PHA 05/11/24 In Process (Lotensin Tablet) 10:00 Atorvastatin (Lipitor) PHA 05/10/24 In Process 22:00 Pantoprazole PHA 05/11/24 In Process (Protonix) 10:00 Glucose Blood PHA 05/10/24 In Process (Accu-Chek Comfort 22:00 Insulin R (Human) PHA 05/10/24 In Process (Insulin R) 22:00 Insulin R (Human) PHA 05/11/24 In Process (Insulin R) 07:00 Dextrose 50% Syringe PHA 05/10/24 In Process 20:00 Allergies RADHA 05/10/24 In Process 19:54 Code Status CODE 05/10/24 Transmitted 19:54 Sodium Chloride 0.9% PHA 05/10/24 In Process 20:00 Oxygen Per Hour RT 05/10/24 Transmitted 19:54 Hydrocodone-Acet PHA 05/10/24 In Process 5/325mg Tab ([place] 20:00 Ondansetron Hcl PHA 05/10/24 In Process (Zofran) 20:00 Docusate Sodium PHA 05/10/24 In Process Capsule (Colace 20:00 Complete Blood Count LAB 05/11/24 Verified 04:00 Comprehensive LAB 05/11/24 Verified Metabolic Panel 04:00 Condition: Serious RADHA 05/10/24 In Process 19:54 Acetaminophen Tablet PHA 05/10/24 In Process (Tylenol Tablet) 20:00 Clear Liq Diet DIET 05/11/24 Transmitted Breakfast Bedrest With Bathroom RADHA 05/10/24 In Process Privileg 19:54 Morphine Sulfate PHA 05/10/24 In Process Injection 20:00 Sequential RADHA 05/10/24 In Process Compression Device Admit ADMIT 05/10/24 Verified 23:05 Nitroglycerin PHA 05/10/24 Verified Sublingual (Ntrostat 23:15 Morphine Sulfate PHA 05/10/24 Verified Injection 23:15 Notify Of Changes [facility] 05/10/24 Verified From Base 23:05 Cardiac Nurse Specialist For [facility] 05/10/24 Verified 24 Hours 23:05 Emergency Dysrhythmia [facility] 05/10/24 Verified Protocol 23:05 Rhythm Strips Once [facility] 05/10/24 Verified Every Shift 23:05 Oxygen By Nasal RT 05/10/24 Verified Cannula 23:05 Problem List: (1) Melena (2) Acute abdominal pain (3) Leukocytosis, unspecified (4) History of colon cancer (5) Anemia of chronic disease (6) Diabetes mellitus with hyperglycemia Date of Service: May 10, 2024 Billing Provider: KELVIN OGLESBY DNP Common Visit Codes: [id number] INP/OBS CARE (HIGH) KELVIN OGLESBY DNP May 10, 2024 23:24
[2024-05-10] MEDS: SODIUM CHLORIDE 0.9% 1,000 ML IV ONE (23:39)
[2024-05-10] MEDS: ACCU-CHEK COMFORT CURVE STRIP VI SCH (23:40)
[2024-05-10] MEDS: SODIUM CHLORIDE 0.9% 1,000 ML IV SCH (23:41)
[2024-05-11] VITALS (8 sets, daily range): BP systolic 108–151; BP diastolic 47–73; PULSE 76–94; RESP 13–20; TEMP 97.5–98.6; O2SAT 93–97
[2024-05-11] MEDS: fentaNYL CITRATE 100 MCG/2 ML VL IV ONE (00:18)
[2024-05-11] MEDS: ONDANSETRON HCL 4 MG/2 ML VIAL IV ONE (00:18)
[2024-05-11] MEDS: PANTOPRAZOLE 40 MG/10 ML VIAL INJ IV ONE (00:19)
[2024-05-11] MEDS: ATORVASTATIN 20 MG TAB PO SCH (00:19)
[2024-05-11] MEDS: InsuLIN REG 1unit/0.01ml Soln (100units/ml) SC SCH ×2 (00:19→05:57)
[2024-05-11] MEDS: cefTRIAXone 1GM/50ML D5W 50 ML IV ONE (00:20)
[2024-05-11] MEDS: MORPHINE SULFATE INJ 2 MG/ml SYRG IV PRN (04:50)
[2024-05-11 06:05] LABS: Mean Corpuscular Hgb Conc. 32.6 g/dL (32.0-36.0); Red Blood Cells 3.69 10^6/uL (4.5-5.90); White Blood Cell 9.8 10^3/uL (4.4-10.8)
[2024-05-11 06:09] LABS: Hematocrit 29.3 % (41.0-53.0); Hemoglobin 9.5 g/dL (13.5-17.5); Mean Corpuscular Hemoglobin 25.8 pg (28.0-32.0); Mean Corpuscular Volume 79.3 fL (80.0-100.0); Platelet Count (auto) 127 10^3/uL (140-450); Red Cell Distribution Width 16.3 % (11.8-14.3)
[2024-05-11 06:16] LABS: Basophils % (manual) 0 (0.0-2.0); Blast Cells 0; Eosinophils % (manual) 0 (0-7); Metamyelocytes % 0; Myelocytes % 0; Promyelocytes % 0; Reactive Lymphocytes 0
[2024-05-11 06:34] LABS: Anion Gap 7 (5-15); BUN/Creatinine Ratio 17.5 (10.0-20.0); Blood Urea Nitrogen 11 mg/dL (9-23); Carbon Dioxide 26 mmol/L (20-31); Chloride 102 mmol/L (98-107); Glucose 95 mg/dL (74-106); Potassium 3.9 mmol/L (3.5-5.1)
[2024-05-11 06:47] LABS: Alanine Aminotransferase 43 U/L (7-40); Albumin 2.9 g/dL (3.2-4.8); Alkaline Phosphatase 122 U/L (46-116); Aspartate Aminotransferase 71 U/L (13-40); Bilirubin, Total 0.3 mg/dL (0.2-1.0); Calcium 8.1 mg/dL (8.7-10.4); Sodium 135 mmol/L (136-145)
[2024-05-11 07:34] LABS: Band Neutrophils % (manual) 1; Lymphocytes % (manual) 21 (10.0-50.0); Monocytes % (manual) 5 (0-12)
[2024-05-11 07:35] LABS: Anisocytosis Slight; Platelet Estimate Decreased
[2024-05-11] MEDS: PANTOPRAZOLE 40 MG/10 ML VIAL INJ IV SCH ×2 (08:28→21:32)
[2024-05-11] MEDS: BENAZEPRIL HCL 10 MG TAB PO SCH (08:48)
[2024-05-11] MEDS: SODIUM CHLORIDE 0.9% 1,000 ML IV SCH (10:30)
[2024-05-11] MEDS: metroNIDAZOLE 500MG/100ML 100 ML IV SCH (15:21)
[2024-05-11] MEDS: IOHEXOL 300 MG/ML 100ML BOTTLE IJ ONE (15:26)
--- NOTE | 2024-05-11 16:16 | DVH ---
Procedure: CT CT AB PEL WITH IV CON ONLY 05/11/2024 03:33 PM Indication: abdominal pain, h/o GIST stomach Comparison Study: CT scan dated 05/10/2024, 02/28/2024 Technique: Axial images were obtained and reformatted in coronal and sagittal planes. All CT scans at this medical facility are performed using dose modulation techniques as appropriate t o a performed exam including the following: Automated exposure control was utilized; adjustment of th e MA and/or KV according to patient size; and use of iterative reconstruction technique. CT Dose: CTDI volume is 6.5 mGy. Dose-length product is 389.52 mGy*cm FINDINGS: Lower chest: Bibasilar subsegmental atelectasis. Hepatobiliary: Hepatic steatosis. Spleen: Normal in size. Fat stranding at the level of the hilum adjacent to perforated gastric fundu s lesion.. Pancreas: Unremarkable. Adrenal Glands: Unremarkable. tract: The kidneys are normal in size bilaterally without hydronephrosis or nephrolithiasis. The urinary bladder is unremarkable. GI tract: Severe irregular gastric fundus wall thickening measuring up to 2.5 cm in thickness with ev idence of contained perforation at the level of splenic hilum. No free intraperitoneal air or fluid n oted . Left gastric chain lymphadenopathy noted measuring up to 3.9 x 2.7 cm. Smaller perigastric ly mph nodes are seen measuring up to 1.7 x 1 cm. No evidence of bowel obstruction. Circumferential mura l thickening of the large bowel wall most prominent in the descending and proximal sigmoid colon with moderate adjacent fat stranding liquid stool in the lumen of the large bowel. Mild diffuse rectal wa ll thickening noted. The appendix is normal. Lymphatics: Perigastric and left gastric fundal at 30 as above. Vasculature: The abdominal aorta is normal in in caliber. Pelvic Organs: Unremarkable. Bones/soft tissues: No acute abnormality. Multilevel degenerative changes of the lumbar spine noted. Other: None. IMPRESSION: 1. 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 No contrast extravasation is seen. 2. Left gastric and perigastric metastatic lymphadenopathy measuring up to 3.9 x 2.7 cm. 3. Proctocolitis, infectious or inflammatory in nature. Recommend clinical and biochemical correlatio n.
--- NOTE | 2024-05-11 16:53 | DVHPNRES ---
Progress Note Date Seen: May 11, 2024 Resident Creating Document: [email or web address] DelgadoIAN RESIDENT Medical Necessity Reason Pt with a Central, PICC or Fol: No Subjective Review of Systems Patient is a 63 year old male with a past medical history as described below came to the ED with the chief complaint of abdominal pain since the last 2-3 days before admission. Patient was admitted to the hospital in february 2024 for the complaints of 3 months of having intermittent diarrhea, heartburn and acidity and also about 2 weeks of black stools. Patient underwent a Abdomen/pelvic CT with IV contrast which showed showed 6.3 x 8.2 x 6.3 cm mass at the stomach fundus with multiple perigastic lymph nodes with largest measures 3.9 cm. 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 Patient followed with and was started on chemotherapy with the first session of chemotherapy done on sunday05/07/2024. patient reports following chemotherapy he started feeling abd discomfort and had loose stools. reports passing 4-5 dark stools since the last 2 days. Patient was admitted to the hospital for further workup. Past medical history: Hypertension, type 2 diabetes mellitus, hyperlipidemia Past surgical history: Denies Social history: Patient was a former smoker but has not smoked, drank alcohol no drugs over 1 year. Home medications: atorvastatin, benazapril 20mg daily, glipizide 10mg daily, metformin 500mg bid, protonix 40mg bid Review of systems Patient is seen and examined at bedside alert and oriented to time, place and person reports LUQ mild to moderate pain reports 3 black stools since the morning Hgb currently at 9.5g/dl denies nausea, vomiting, shortness of breath, palpitations Objective vital signs Vital Sign Date Time Temp Pulse Resp B/P (MAP) Pulse Ox O2 Delivery O2 Flow Rate FiO2 05/11/24 13:00 98.3 88 19 108/63 (78) 96 98.3 05/11/24 08:00 Room Air* 0 21 Total Intake and Output 05/10/24 05/10/24 05/11/24 15:00 23:00 07:00 Intake Total 1220 ml Balance 1220 ml medications Current Medications Medications Dose Ordered Sig/Polina Route Start Time Stop Time Status Last Admin Dose Admin Benazepril HCl 20 mg DAILY PO 05/11/24 10:00 05/11/24 08:48 20 MG Atorvastatin Calcium 10 mg HS PO 05/10/24 22:00 05/11/24 00:19 10 MG Pantoprazole Sodium 40 mg DAILY IV 05/11/24 10:00 05/11/24 08:28 40 MG Diagnostic Test (Pha) 1 strip ACHS 05/10/24 22:00 05/11/24 11:34 1 STRIP Insulin Human Regular HS SC 05/10/24 22:00 05/11/24 00:19 3 UNITS Insulin Human Regular AC SC 05/11/24 07:00 05/11/24 11:38 3 UNITS Dextrose 50 ml UD PRN IV 05/10/24 20:00 Acetaminophen/ Hydrocodone Bitart 1 tab Q4HP PRN PO 05/10/24 20:00 Ondansetron HCl 4 mg Q4HP PRN IV 05/10/24 20:00 Docusate Sodium 100 mg BIDPRN PRN PO 05/10/24 20:00 Acetaminophen 650 mg Q6HP PRN PO 05/10/24 20:00 Morphine Sulfate 2 mg Q4HPRN PRN IV 05/10/24 20:00 05/11/24 04:50 2 MG Nitroglycerin 0.4 mg Q5MINP PRN SL 05/10/24 23:15 Morphine Sulfate 2 mg Q30M PRN IV 05/10/24 23:15 Ceftriaxone Sodium 50 ml @ 100 mls/hr DAILY@0000 IV 05/12/24 00:00 Sodium Chloride 1,000 ml @ 100 mls/hr Q10H IV 05/11/24 10:30 05/11/24 10:30 100 MLS/HR Metronidazole 100 ml @ 100 mls/hr Q8HR IV 05/11/24 14:00 05/11/24 15:21 100 MLS/HR Examination Physical Examination Gen - mild conjunctival pallor, no icterus, no cyanosis, no clubbing, no LAD, 2+ edema bilateral lower limbs. Skin - Patients skin is slightly pale and dry. HEENT - normocephalic, atraumatic, dry mucous membranes. Neck - full ROM, no LAD, no JVD Pulmonary - B/L vesicular breath sounds, no crackles, no wheezing. cardiovascular - normal S1,S2 heard. no murmurs heard. peripheral pulses radial 2+, pedal 2+. GI - soft abdomen with mild tenderness to palpation in the LUQ. no hepatospleenomegaly. Bowel sounds normoactive Neurological - Patient is A/O X 3. 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 Large, at least 7.1 x 5 cm gastric fundus mass corresponding to known GIST with evidence of interval contained perforation at the level of the splenic hilum with mild adjacent fat stranding but no free intraperitoneal air or fluid in the abdomen or pelvis. No contrast extravasation is seen. 2. Left gastric and perigastric metastatic lymphadenopathy measuring up to 3.9 x 2.7 cm. 3. Proctocolitis, infectious or inflammatory in nature. - stool occult blood positive - stool WBC pending - stool bacterial culture and C.diff toxin pending - on IV fluids - H&H stable , repeat q6hrs - IV metronidazole and IV ceftriaxone - protonix 40mg IV bid - GI consulted # Transaminitis - AST and ALT elevated , trending down - hepatitis panel pending - continue monitoring # Uncontrolled T2DM - On moderate ISS - goal blood glucose 140-180mg/dl # Hypertensive heart disease - continued on benazapril 20mg daily - Bp is WNL # Generalized weakness - physical therapy evaluation pending Goals of care discussed with the patient for over 29 mins. Full code Plan discussed with Emerald Camargo Plan discussed with: Patient, Spouse, Son My Orders My Orders Orders - MAYLIN ORDOÑEZ RESIDENT Procedure Category Date Status Time Urinalysis LAB 05/11/24 Logged 08:37 Drug Screen LAB 05/11/24 Logged 08:37 Sodium Chloride 0.9% PHA 05/11/24 In Process 10:30 Stool Wbc LAB 05/11/24 Logged 10:21 Stool Bacterial MARANDA 05/11/24 Uncollected Culture 10:21 Ova & Parasite Exam MARANDA 05/11/24 Uncollected 10:21 * [facility] Vascular Technologist Sonographer CONS 05/11/24 Transmitted 13:52 Hemoglobin & LAB 05/11/24 Logged Hematocrit 18:00 Hemoglobin & LAB 05/12/24 Verified Hematocrit 00:00 Ct Ab Pel With Iv Con CT 05/11/24 Resulted Only 13:52 Metronidazole PHA 05/11/24 In Process 500mg/100ml (Flagyl 14:00 Clostridium Difficile MARANDA 05/11/24 In Process Toxin 14:49 Pt Request For Service PT 05/11/24 Logged 15:51 Dietary Evaluation Review Comments: 1. Continue diet regime 2. Advance diet as tolerated to CCHO 60g 3. F/u GI Expected Outcomes/Goals: 1. Pt will consume >75% of estimated needs within 2-3 days Date of Service: May 11, 2024 Billing Provider: DEANGELO CAMARGO MD Common Visit Codes: [id number] INP/OBS CARE(HIGH) MAYLIN ORDOÑEZ RESIDENT May 11, 2024 16:53 DEANGELO CAMARGO MD May 11, 2024 23:45
[2024-05-11 17:07] LABS: Urine Bacteria None Seen /hpf (None Seen)
[2024-05-11 17:28] LABS: Opiate Scree,Urine Neg (NEGATIVE)
[2024-05-11 17:29] LABS: Urine Blood Negative /uL (Negative); Urine Clarity Clear (Clear); Urine Color Light-Yellow (Yellow); Urine Protein, UAD Negative (Negative); Urine Urobilinogen Normal (Negative); Urine WBC <1 /hpf (0 - 3); Urine pH 6.5 (5.0-9.0)
[2024-05-11 17:31] LABS: Amphetamine Screen, Urine Neg (NEGATIVE); Barbiturate Scree,Urine Neg (NEGATIVE); Benzodiazephine Screen, Urine Neg (NEGATIVE); Cannabinoid Screen, Urine Neg (NEGATIVE); Cocaine Screen, Urine Neg (NEGATIVE); Phencyclidine Screen, Urine Neg (NEGATIVE)
[2024-05-11 17:36] LABS: Urine Specific Gravity > 1.035 (1.001-1.035)
[2024-05-11 19:12] LABS: Hematocrit 29.6 % (41.0-53.0); Hemoglobin 9.6 g/dL (13.5-17.5)
--- NOTE | 2024-05-11 21:19 | DVHINCON2 ---
Date of service: May 11, 2024 Referring Physician Tarun Samson Reason for Consultation N/V/abd pain History of Present Illness Patient is a 63 year old male with known history of gastric adenocarcinoma diagnosed on a recent endoscopy who has started chemotherapy with Dr. Dc. His first chemotherapy session was on 05/07 24. Following the chemotherapy started feeling abdominal pain this was followed by loose stools about four to 5 times a day and they were somewhat dark in color. Patient presented to the ER for further evaluation and management. Patient has had three dark stool since this morning. His hemoglobin is 9.5. Past Medical History Hyperlipidemia Hypertension Stomach cancer Family History: Hypertension G8 FATHER (HTN) Allergies: Coded Allergies: NO KNOWN ALLERGIES (Unverified , 02/28/24) Home Meds Active Scripts Pantoprazole Sodium Sesquihydr (Protonix) 40 Mg Tab, 40 MG PO BID for 30 Days, #60 TAB 2 Refills Prov:KATHERINE HERNANDEZ RESIDENT 03/02/24 Reported Medications Benazepril Hcl (Lotensin) 20 Mg Tab, 1 TAB PO DAILY, #30 TAB 5 Refills 02/28/24 Linagliptin Base (TRADJENTA) 5 Mg Tab, 1 TAB PO DAILY, #90 TAB 1 Refill 02/28/24 Glipizide (Glipizide) 10 Mg Tab, 1 TAB PO DAILY, #60 TAB 5 Refills 02/28/24 Metformin Hydrochloride (Metformin Hcl) 850 Mg Tab, 1 TAB PO DAILY, #60 TAB 5 Refills 02/28/24 Atorvastatin Calcium (ATORVASTATIN CALCIUM) 10 Mg Tab, 10 MG PO HS 02/28/24 Current Medications Current Medications Medications (Trade) Dose Ordered Sig/Polina Route PRN Reason Start Time Stop Time Status Last Admin Benazepril HCl (Lotensin Tablet) 20 mg DAILY PO 05/11/24 10:00 05/11/24 08:48 Atorvastatin Calcium (Lipitor) 10 mg HS PO 05/10/24 22:00 05/11/24 00:19 Pantoprazole Sodium (Protonix) 40 mg DAILY IV 05/11/24 10:00 05/11/24 19:27 DC 05/11/24 08:28 Diagnostic Test (Pha) (Accu-Chek Comfort Curve T) 1 strip ACHS 05/10/24 22:00 05/11/24 17:07 Insulin Human Regular (InsuLIN R) HS SC 05/10/24 22:00 05/11/24 00:19 Insulin Human Regular (InsuLIN R) AC SC 05/11/24 07:00 05/11/24 17:00 Nitroglycerin (Ntrostat Sublingual) 0.4 mg Q5MINP PRN SL FOR CHEST PAIN 05/10/24 23:15 Morphine Sulfate 2 mg Q30M PRN IV FOR CHEST PAIN 05/10/24 23:15 Ceftriaxone Sodium 50 ml @ 100 mls/hr DAILY@0000 IV 05/12/24 00:00 Sodium Chloride 1,000 ml @ 100 mls/hr Q10H IV 05/11/24 10:30 05/11/24 10:30 Metronidazole 100 ml @ 100 mls/hr Q8HR IV 05/11/24 14:00 05/11/24 15:21 Pantoprazole Sodium (Protonix) 40 mg BID IV 05/11/24 22:00 Vital Signs Vital Signs Date Time Temp Pulse Resp B/P (MAP) Pulse Ox O2 Delivery O2 Flow Rate FiO2 05/11/24 21:07 94 18 118/60 05/11/24 21:00 98.6 97 98.6 05/11/24 08:00 Room Air* 0 21 Physical Exam General Appearance: Alert, Oriented X3, Cooperative, Mild distress HEENT: Atraumatic, PERRLA, EOMI, Mucous membr. moist/pink Respiratory: Clear to auscultation, Normal air movement Cardiovascular: Regular rate, Normal S1, Normal S2, No murmurs Abdominal: Normal bowel sounds, Soft, No hepatospenomegaly, No masses, Other (Reports tenderness) Extremities: No clubbing, No cyanosis, No edema, Normal pulses, No t enderness/swelling Skin: No rashes, No breakdown, No significant lesion Neuro: Normal speech, Normal tone, Sensation intact, Cranial nerves 3-12 NL, Reflexes 2+, Other (Generalized weakness) Psych/Mental Status: Mental status NL, Mood NL Labs/Diagnostic Data Labs Test 05/11/24 18:31 05/11/24 17:00 05/11/24 16:35 05/11/24 14:37 Range/Units Hemoglobin 9.6 L 13.5-17.5 g/dL Hematocrit 29.6 L 41.0-53.0 % Urine Color Light-yellow Yellow Urine Clarity Clear Clear Urine pH 6.5 5.0-9.0 Urine Specific [place] > 1.035 H 1.001-1.035 Urine Protein Negative Negative Urine Ketones Negative Negative Urine Blood Negative Negative /uL Urine Nitrite Negative Negative Urine Bilirubin Negative Negative Urine Urobilinogen Normal Negative mg/dL Urine Leukocyte Esterase Negative Negative /uL Urine RBC None seen 0 - 3 /hpf Urine WBC <1 0 - 3 /hpf Urine Squamous Epithelial Cells None seen <5 /hpf Urine Bacteria None seen None Seen /hpf Urine Glucose Normal Normal mg/dL Urine Opiates Screen Neg NEGATIVE Urine Fentanyl Screen Neg NEGATIVE Urine Barbiturates Screen Neg NEGATIVE Urine Phencyclidine Screen Neg NEGATIVE Urine Amphetamines Screen Neg NEGATIVE Urine Benzodiazepines Screen Neg NEGATIVE Urine Cocaine Screen Neg NEGATIVE Urine Cannabinoids Screen Neg NEGATIVE POC Glucose 152 H 70-106 mg/dl Stool Occult Blood Positive Negative Stool Occult Blood Sample #3 Negative Test 05/11/24 04:50 05/10/24 17:00 05/10/24 16:05 Range/Units White Blood Count 9.8 # 4.4-10.8 10^3/uL Red Blood Count 3.69 L 4.5-5.90 10^6/uL Mean Corpuscular Volume 79.3 L 80.0-100.0 fL Mean Corpuscular Hemoglobin 25.8 L 28.0-32.0 pg Mean Corpuscular Hemoglobin Concent 32.6 32.0-36.0 g/dL Red Cell Distribution Width 16.3 H 11.8-14.3 % Platelet Count 127 L 140-450 10^3/uL Mean Platelet Volume 8.5 6.9-10.8 fL Neutrophils (%) (Auto) 37.0-80.0 % Lymphocytes (%) (Auto) 10.0-50.0 % Monocytes (%) (Auto) 0.0-12.0 % Basophils (%) (Auto) 0.0-2.0 % Neutrophils # (Auto) 1.6-8.6 10 ^3/uL Lymphocytes # (Auto) 0.4-5.4 10 ^3/uL Monocytes # (Auto) 0-1.3 10 ^3/uL Differential Total Cells Counted 100.0 100 Neutrophils % (Manual) 73 37.0-80.0 Band Neutrophils % (Manual) 1 Lymphocytes % (Manual) 21 10.0-50.0 Monocytes % (Manual) 5 0-12 Eosinophils % (Manual) 0 0-7 Basophils % (Manual) 0 0.0-2.0 Metamyelocytes % (manual) 0 Myelocytes % (Manual) 0 Promyelocytes % (Manual) 0 Blast Cells % (Manual) 0 Reactive Lymphocytes 0 Platelet Estimate Decreased Anisocytosis (manual) Slight Microcytosis Slight Sodium Level 135 L 136-145 mmol/L Potassium Level 3.9 3.5-5.1 mmol/L Chloride Level 102 98-107 mmol/L Carbon Dioxide Level 26 20-31 mmol/L Anion Gap 7 5-15 Blood Urea Nitrogen 11 9-23 mg/dL Creatinine 0.63 L 0.700-1.30 mg/dL Glomerular Filtration Rate Calc 108 >90 mL/min BUN/Creatinine Ratio 17.5 10.0-20.0 Serum Glucose 95 74-106 mg/dL Calcium Level 8.1 L 8.7-10.4 mg/dL Total Bilirubin 0.3 0.2-1.0 mg/dL Aspartate Amino Transferase (AST) 71 H 13-40 U/L Alanine Aminotransferase (ALT) 43 H 7-40 U/L Alkaline Phosphatase 122 H 46-116 U/L Total Protein 6.0 5.7-8.2 g/dL Albumin 2.9 L 3.2-4.8 g/dL Troponin I High Sensitivity < 3 L </=54 ng/L Large Platelets Few Hypochromasia (manual) Slight Lactic Acid Level 1.3 0.4-2.0 mmol/L Magnesium Level 2.1 1.6-2.6 mg/dL B-Type Natriuretic Peptide 18.58 0-100 pg/mL Lipase 26 12-53 U/L CT SCAN ABD PELVIS IMPRESSION: 1. Large, at least 7.1 x 5 cm gastric fundus mass corresponding to known GIST with evidence of interval contained perforation at the level of the splenic hilum with mild adjacent fat stranding but no free intraperitoneal air or fluid in the abdomen or pelvis. No contrast extravasation is seen. 2. Left gastric and perigastric metastatic lymphadenopathy measuring up to 3.9 x 2.7 cm. 3. Proctocolitis, infectious or inflammatory in nature. Recommend clinical and biochemical correlation. Problems(with codes): (1) Anemia of chronic disease (2) Diabetes mellitus with hyperglycemia (3) History of colon cancer (4) Leukocytosis, unspecified (5) Acute abdominal pain (6) History of stomach cancer (7) Abdominal pain (8) Melena (9) Gastric malignant neoplasm (10) Dark stools (11) Nausea and vomiting (12) Weakness Plan/Recommendation Plan Keep this patient NPO IV fluid hydration IV TPN IV PPI Patient has a contained perforation at the site of the malignancy with surrounding inflammatory changes Patient has mild melena related to his gastric malignancy and enterocolitis due to chemotherapy Continue supportive care, broad-spectrum antibiotics Oral Carafate when the patient is able to tolerate p.o. Continue to monitor labs Prognosis is guarded Consider surgical consult Plan discussed with: Other (None) BYRON NEWSOME MD May 11, 2024 21:19
[2024-05-11] MEDS ORDERED: CLINIMIX PER PHARMACY 0 ML IV SCH (21:30)
[2024-05-12] VITALS (8 sets, daily range): BP systolic 120–154; BP diastolic 65–77; PULSE 79–90; RESP 16–19; TEMP 97.9–98.7; O2SAT 97–100
[2024-05-12] MEDS: cefTRIAXone 1GM/50ML D5W 50 ML IV SCH (00:25)
[2024-05-12 01:07] LABS: Hematocrit 28.5 % (41.0-53.0); Hemoglobin 9.1 g/dL (13.5-17.5)
[2024-05-12 07:02] LABS: Red Cell Distribution Width 16.2 % (11.8-14.3)
[2024-05-12 07:04] LABS: Hematocrit 27.4 % (41.0-53.0); Mean Corpuscular Hemoglobin 25.9 pg (28.0-32.0); Mean Corpuscular Hgb Conc. 32.7 g/dL (32.0-36.0); Platelet Count (auto) 124 10^3/uL (140-450); Red Blood Cells 3.46 10^6/uL (4.5-5.90)
[2024-05-12 07:14] LABS: Alanine Aminotransferase 36 U/L (7-40); Alkaline Phosphatase 105 U/L (46-116); Anion Gap 7 (5-15); Carbon Dioxide 26 mmol/L (20-31); Chloride 103 mmol/L (98-107); Glucose 83 mg/dL (74-106); LDL Cholesterol 29 mg/dL (< 100); Potassium 3.7 mmol/L (3.5-5.1); Triglycerides 83 mg/dL (< 150)
[2024-05-12 07:15] LABS: Cholesterol 84 mg/dL (< 200)
[2024-05-12 07:25] LABS: Basophils % (manual) 0 (0.0-2.0); Blast Cells 0; Metamyelocytes % 0; Myelocytes % 0; Promyelocytes % 0; Reactive Lymphocytes 0
[2024-05-12 07:27] LABS: Albumin 2.7 g/dL (3.2-4.8); Aspartate Aminotransferase 50 U/L (13-40); Bilirubin, Total 0.3 mg/dL (0.2-1.0); Blood Urea Nitrogen 6 mg/dL (9-23); Calcium 8.1 mg/dL (8.7-10.4); HDL Cholesterol 38 mg/dL (40-59); Sodium 136 mmol/L (136-145); Total Protein 5.5 g/dL (5.7-8.2)
[2024-05-12 08:06] LABS: Band Neutrophils % (manual) 1; Eosinophils % (manual) 4 (0-7); Lymphocytes % (manual) 22 (10.0-50.0); Monocytes % (manual) 7 (0-12); Platelet Estimate Decreased
[2024-05-12] MEDS ORDERED: DEXTROSE (50%) 50ML SYRG IV PRN (09:30)
[2024-05-12 09:53] LABS: Hepatitis B Surface Antigen Negative (Negative)
[2024-05-12 10:01] LABS: Hepatitis A Ab IgM Negative; Hepatitis B Core IgM Negative (Negative); Hepatitis C Antibody Negative (Negative)
[2024-05-12] MEDS ORDERED: DEXTROSE (50%) 50ML SYRG IV SCH (10:30)
[2024-05-12] MEDS: InsuLIN REG 1unit/0.01ml Soln (100units/ml) SC SCH (12:00)
[2024-05-12] MEDS: Ensure HIGH Protein Chocolate 8oz Bottle PO SCH (12:00)
[2024-05-12] MEDS ORDERED: ACCU-CHEK COMFORT CURVE STRIP VI SCH (12:00)
[2024-05-12] MEDS: ACCU-CHEK COMFORT CURVE STRIP VI SCH (12:00)
[2024-05-12] MEDS ORDERED: InsuLIN REG 1unit/0.01ml Soln (100units/ml) SC SCH (12:00)
--- NOTE | 2024-05-12 13:20 | DVHINCON2 ---
Date of service: May 12, 2024 History of Present Illness 63-year-old male with a recently diagnosed with gastric GIST tumor who just started his chemotherapy on May 07 and noticed left upper quadrant abdom inal pain with melena. Patient denies any fevers, chills, nausea or vomiting. Patient has been able to tolerate diet up until admission. Past Medical History Gastric GIST. Hypertension. Past Surgical History None Family History: Hypertension G8 FATHER (HTN) Family History Noncontributory Social History No alcohol, tobacco, drug use Allergies: Coded Allergies: NO KNOWN ALLERGIES (Unverified , 02/28/24) Home Meds Active Scripts Pantoprazole Sodium Sesquihydr (Protonix) 40 Mg Tab, 40 MG PO BID for 30 Days, #60 TAB 2 Refills Prov:KATHERINE HERNANDEZ RESIDENT 03/02/24 Reported Medications Benazepril Hcl (Lotensin) 20 Mg Tab, 1 TAB PO DAILY, #30 TAB 5 Refills 02/28/24 Linagliptin Base (TRADJENTA) 5 Mg Tab, 1 TAB PO DAILY, #90 TAB 1 Refill 02/28/24 Glipizide (Glipizide) 10 Mg Tab, 1 TAB PO DAILY, #60 TAB 5 Refills 02/28/24 Metformin Hydrochloride (Metformin Hcl) 850 Mg Tab, 1 TAB PO DAILY, #60 TAB 5 Refills 02/28/24 Atorvastatin Calcium (ATORVASTATIN CALCIUM) 10 Mg Tab, 10 MG PO HS 02/28/24 Current Medications Current Medications Medications (Trade) Dose Ordered Sig/Polina Route PRN Reason Start Time Stop Time Status Last Admin Ceftriaxone Sodium 50 ml @ 100 mls/hr DAILY@0000 IV 05/12/24 00:00 05/12/24 00:25 Metronidazole 100 ml @ 100 mls/hr Q8HR IV 05/11/24 14:00 05/12/24 06:24 Pantoprazole Sodium (Protonix) 40 mg BID IV 05/11/24 22:00 05/12/24 08:37 Amino Acids 0 ml @ 0 mls/hr PER PHARMACY IV 05/11/24 21:30 Diagnostic Test (Pha) (Accu-Chek Comfort Curve T) 1 strip Q6HR 05/12/24 12:00 05/12/24 10:14 DC Insulin Human Regular (InsuLIN R) Q6HR SC 05/12/24 12:00 05/12/24 10:14 DC Dextrose 50 ml UD PRN IV Blood Sugar LESS THAN 60 05/12/24 09:30 05/12/24 10:14 DC Enteral Nutritional Formula (Ensure High Protein) 240 ml TIDWM PO 05/12/24 12:00 Diagnostic Test (Pha) (Accu-Chek Comfort Curve T) 1 strip Q6HR 05/12/24 12:00 Insulin Human Regular (InsuLIN R) FOLLOW SLIDING SCALE Q6HR SC 05/12/24 12:00 Dextrose 50 ml UD IV 05/12/24 10:30 Amino Acids/ Electrolytes/ Dextrose 1,000 ml @ 41 mls/hr DAILY@2200 IV 05/12/24 22:00 Vital Signs Vital Signs Date Time Temp Pulse Resp B/P (MAP) Pulse Ox O2 Delivery O2 Flow Rate FiO2 05/12/24 09:00 98.1 81 16 126/73 (90) 100 98.1 05/12/24 07:49 Room Air* 0 21 Physical Exam GEN: Age-appropriate male in no acute distress. Alert. HEENT: Normocephalic atraumatic. Moist mucous membranes. Anicteric sclerae. CV: RRR Respiratory: CTAB ABD: Soft. Very minimal left upper quadrant tenderness to palpation without guarding or rebound. Nondistended. CT of the abdomen and pelvis: Large at least 7.1 x 5 cm gastric fundal mass corresponding to known GIST with evidence of interval contained perforation of the level of the splenic hilum with mild adjacent fat stranding but no free intraperitoneal air or fluid in the abdomen or pelvis. No contrast extravasation. Left gastric and perigastric metastatic lymphadenopathy measuring up to 3.9 x 2.7 cm. Proctocolitis. Labs/Diagnostic Data Labs Test 05/12/24 11:10 05/12/24 05:55 05/11/24 17:00 05/11/24 14:37 Range/Units POC Glucose 105 70-106 mg/dl White Blood Count 5.0 # 4.4-10.8 10^3/uL Red Blood Count 3.46 L 4.5-5.90 10^6/uL Hemoglobin 9.0 L 13.5-17.5 g/dL Hematocrit 27.4 L 41.0-53.0 % Mean Corpuscular Volume 79.0 L 80.0-100.0 fL Mean Corpuscular Hemoglobin 25.9 L 28.0-32.0 pg Mean Corpuscular Hemoglobin Concent 32.7 32.0-36.0 g/dL Red Cell Distribution Width 16.2 H 11.8-14.3 % Platelet Count 124 L 140-450 10^3/uL Mean Platelet Volume 8.3 6.9-10.8 fL Neutrophils (%) (Auto) 37.0-80.0 % Lymphocytes (%) (Auto) 10.0-50.0 % Monocytes (%) (Auto) 0.0-12.0 % Basophils (%) (Auto) 0.0-2.0 % Neutrophils # (Auto) 1.6-8.6 10 ^3/uL Lymphocytes # (Auto) 0.4-5.4 10 ^3/uL Monocytes # (Auto) 0-1.3 10 ^3/uL Differential Total Cells Counted 100.0 100 Neutrophils % (Manual) 66 37.0-80.0 Band Neutrophils % (Manual) 1 Lymphocytes % (Manual) 22 10.0-50.0 Monocytes % (Manual) 7 0-12 Eosinophils % (Manual) 4 0-7 Basophils % (Manual) 0 0.0-2.0 Metamyelocytes % (manual) 0 Myelocytes % (Manual) 0 Promyelocytes % (Manual) 0 Blast Cells % (Manual) 0 Reactive Lymphocytes 0 Platelet Estimate Decreased Microcytosis Slight Sodium Level 136 136-145 mmol/L Potassium Level 3.7 3.5-5.1 mmol/L Chloride Level 103 98-107 mmol/L Carbon Dioxide Level 26 20-31 mmol/L Anion Gap 7 5-15 Blood Urea Nitrogen 6 L 9-23 mg/dL Creatinine 0.60 L 0.700-1.30 mg/dL Glomerular Filtration Rate Calc 110 >90 mL/min BUN/Creatinine Ratio 10.0 10.0-20.0 Serum Glucose 83 74-106 mg/dL Calcium Level 8.1 L 8.7-10.4 mg/dL Phosphorus Level 2.7 2.4-5.1 mg/dL Magnesium Level 2.0 1.6-2.6 mg/dL Total Bilirubin 0.3 0.2-1.0 mg/dL Aspartate Amino Transferase (AST) 50 H 13-40 U/L Alanine Aminotransferase (ALT) 36 7-40 U/L Alkaline Phosphatase 105 46-116 U/L Total Protein 5.5 L 5.7-8.2 g/dL Albumin 2.7 L 3.2-4.8 g/dL Triglycerides Level 83 < 150 mg/dL Cholesterol Level 84 < 200 mg/dL LDL Cholesterol 29 < 100 mg/dL HDL Cholesterol 38 L 40-59 mg/dL Hepatitis A IgM Antibody Negative Hepatitis B Surface Antigen Negative Negative Hepatitis B Core IgM Antibody Negative Negative Hepatitis C Antibody Negative Negative Urine Color Light-yellow Yellow Urine Clarity Clear Clear Urine pH 6.5 5.0-9.0 Urine Specific [place] > 1.035 H 1.001-1.035 Urine Protein Negative Negative Urine Ketones Negative Negative Urine Blood Negative Negative /uL Urine Nitrite Negative Negative Urine Bilirubin Negative Negative Urine Urobilinogen Normal Negative mg/dL Urine Leukocyte Esterase Negative Negative /uL Urine RBC None seen 0 - 3 /hpf Urine WBC <1 0 - 3 /hpf Urine Squamous Epithelial Cells None seen <5 /hpf Urine Bacteria None seen None Seen /hpf Urine Glucose Normal Normal mg/dL Urine Opiates Screen Neg NEGATIVE Urine Fentanyl Screen Neg NEGATIVE Urine Barbiturates Screen Neg NEGATIVE Urine Phencyclidine Screen Neg NEGATIVE Urine Amphetamines Screen Neg NEGATIVE Urine Benzodiazepines Screen Neg NEGATIVE Urine Cocaine Screen Neg NEGATIVE Urine Cannabinoids Screen Neg NEGATIVE Stool Occult Blood Positive Negative Stool Occult Blood Sample #3 Negative Stool for White Cells None seen Test 05/11/24 04:50 05/10/24 17:00 05/10/24 16:05 Range/Units Anisocytosis (manual) Slight Troponin I High Sensitivity < 3 L </=54 ng/L Large Platelets Few Hypochromasia (manual) Slight Lactic Acid Level 1.3 0.4-2.0 mmol/L B-Type Natriuretic Peptide 18.58 0-100 pg/mL Lipase 26 12-53 U/L Microbiology Date/Time Source Procedure Growth Status 05/11/24 14:37 Stool Clostridium difficile Toxin Assay - Final Complete Assessment 1. 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 We will get an upper GI with Gastrografin to assess whether there really is a perforation or whether this is extension of the tumor. If there was no obvious perforation then he may resume p.o. diet and resume chemotherapy. Plan discussed with: Patient RITA RICARDO MD May 12, 2024 13:20
--- NOTE | 2024-05-12 15:48 | DVHPNRES ---
Progress Note Date Seen: May 12, 2024 Resident Creating Document: CRISTOBAL DEAN RESDIENT Medical Necessity Reason Pt with a Central, PICC or Fol: No Subjective Review of Systems Patient is a 63 year old male with a past medical history as described below came to the ED with the chief complaint of abdominal pain since the last 2-3 days before admission. Patient was admitted to the hospital in february 2024 for the complaints of 3 months of having intermittent diarrhea, heartburn and acidity and also about 2 weeks of black stools. Patient underwent a Abdomen/pelvic CT with IV contrast which showed showed 6.3 x 8.2 x 6.3 cm mass at the stomach fundus with multiple perigastic lymph nodes with largest measures 3.9 cm. 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 Patient followed with and was started on chemotherapy with the first session of chemotherapy done on sunday05/07/2024. patient reports following chemotherapy he started feeling abd discomfort and had loose stools. reports passing 4-5 dark stools since the last 2 days. Patient was admitted to the hospital for further workup. Past medical history: Hypertension, type 2 diabetes mellitus, hyperlipidemia Past surgical history: Denies Social history: Patient was a former smoker but has not smoked, drank alcohol no drugs over 1 year. Home medications: atorvastatin, benazapril 20mg daily, glipizide 10mg daily, metformin 500mg bid, protonix 40mg bid Today, 05/12, the patient seen and examined at the bedside. The patient is still complaining of abdominal pain and watery brown diarrhea. Patient reports: No new complaints Changes from previous H/P or p: No Changes Objective vital signs Vital Sign Date Time Temp Pulse Resp B/P (MAP) Pulse Ox O2 Delivery O2 Flow Rate FiO2 05/12/24 13:00 97.9 89 16 140/73 (95) 99 97.9 05/12/24 07:49 Room Air* 0 21 Total Intake and Output 05/11/24 05/11/24 05/12/24 15:00 23:00 07:00 Intake Total 1000 ml 1395 ml Balance 1000 ml 1395 ml medications Current Medications Medications Dose Ordered Sig/Polina Route Start Time Stop Time Status Last Admin Dose Admin Benazepril HCl 20 mg DAILY PO 05/11/24 10:00 05/11/24 08:48 20 MG Atorvastatin Calcium 10 mg HS PO 05/10/24 22:00 05/11/24 21:32 10 MG Acetaminophen/ Hydrocodone Bitart 1 tab Q4HP PRN PO 05/10/24 20:00 Ondansetron HCl 4 mg Q4HP PRN IV 05/10/24 20:00 Docusate Sodium 100 mg BIDPRN PRN PO 05/10/24 20:00 Acetaminophen 650 mg Q6HP PRN PO 05/10/24 20:00 Morphine Sulfate 2 mg Q4HPRN PRN IV 05/10/24 20:00 05/11/24 21:07 2 MG Nitroglycerin 0.4 mg Q5MINP PRN SL 05/10/24 23:15 Morphine Sulfate 2 mg Q30M PRN IV 05/10/24 23:15 Ceftriaxone Sodium 50 ml @ 100 mls/hr DAILY@0000 IV 05/12/24 00:00 05/12/24 00:25 100 MLS/HR Sodium Chloride 1,000 ml @ 100 mls/hr Q10H IV 05/11/24 10:30 05/12/24 05:18 100 MLS/HR Metronidazole 100 ml @ 100 mls/hr Q8HR IV 05/11/24 14:00 05/12/24 14:23 100 MLS/HR Pantoprazole Sodium 40 mg BID IV 05/11/24 22:00 05/12/24 08:37 40 MG Amino Acids 0 ml @ 0 mls/hr PER PHARMACY IV 05/11/24 21:30 Enteral Nutritional Formula 240 ml TIDWM PO 05/12/24 12:00 Diagnostic Test (Pha) 1 strip Q6HR 05/12/24 12:00 Insulin Human Regular FOLLOW SLIDING SCALE Q6HR SC 05/12/24 12:00 Dextrose 50 ml UD IV 05/12/24 10:30 Amino Acids/ Electrolytes/ Dextrose 1,000 ml @ 41 mls/hr DAILY@2200 IV 05/12/24 22:00 Examination General Appearance: Alert, Oriented X3, Cooperative, with mild distress HEENT: Atraumatic, PERRLA, EOMI, Mucous membrane moist/pink Respiratory: Clear to auscultation, Normal air movement Cardiovascular: Regular rate, Normal S1, Normal S2, No murmurs, no chest wall tenderness Abdominal: Mild abdominal tenderness Extremities: No clubbing, No cyanosis, No edema, Normal pulses, No tenderness/swelling Skin: No rashes, No breakdown, No significant lesion Neuro: Normal gait, Normal speech, Strength at 5/5 X4 ext, Normal tone, Sensation intact, Cranial nerves 3-12 NL, Reflexes 2+ Psych/Mental Status: Mental status NL, Mood NL laboratory and microbiology Laboratory Tests 05/12/24 05:55 Test 05/12/24 05:55 Range/Units Serum Glucose 83 74-106 mg/dL Microbiology Date/Time Source Procedure Growth Status 05/11/24 14:37 Stool Clostridium difficile Toxin Assay - Final Complete Labs and/or images reviewed: Labs reviewed by me, Image(s) reviewed by me Problem List/Assessment/Plan Problem List/Assessment/Plan This is a 63-year-old male with past medical history of hypertension, diabetes type 2, hyperlipidemia, presented to the hospital with abdominal pain and black stool since 2-3 days. Admitted on 05/10. Acute GI bleeding, likely upper GI Stomach mass, likely GIST tumor, likely metastasis to the perigastric lymph nodes Possible gastric perforation/contained Proctocolitis, likely infectious/inflammatory Patient is followed by Dr. Dc, started chemotherapy on 05/07, since that time has abdominal pain and black diarrhea Upper GI endoscopy, from 03/03, shows 7-8 cm gastric mass in the fundus which was friable polypoid with central ulceration with oozing and with increased bleeding CT scan with IV contrast, shows 7.1 x 5 cm gastric fundus mass corresponding to known GIST with evidence of interval contained perforation at the level of the splenic hilum with mild adjacent fat stranding but no free intraperitoneal air or fluid in the abdomen or pelvis. No contrast extravasation is seen, left gastric and perigastric metastatic lymphadenopathy measuring up to 3.9 x 2.7 cm, proctocolitis (infectious or inflammatory C difficile toxin is negative Stool occult blood is positive GI is on the board, recommended IV PPI Surgery is on the board, planned for Gastrografin study for tomorrow Check stool ova and parasite Stool bacterial culture IV normal saline 100 mL/hour Continue ceftriaxone, started on 05/12 Continue metronidazole, started 05/11 Transaminitis AST/ALT raised, downtrending Mild Hyponatremia Monitoring [id number] Malnutrition Albumin is 3.1 Amino acid infusion Uncontrolled diabetes mellitus Hb A1c, from 02/27 shows 7.7 Insulin regular, according to mild sliding scale Hypertension Hypertensive heart Disease Continue benazepril 20 mg daily Check vitals q.6 hours Dyslipidemia HDL is 30 Continue atorvastatin 10 mg daily Moderate anemia, microcytic Hypochromic Thrombocytopenia Monitoring DIET: NPO, because of the patient intolerance of oral intake, TPN is given DVT prophylax: Due to possible GI bleeding, anticoagulant is not indicated, SCDs GI prophylaxis: Protonix 40 mg IV b.i.d. Bowel regimen: Patient has diarrhea, no indication for laxative Code status: Full code, goal of care discussed more than 20 minutes with the patient. DISPOSITION: Med/surg Patient's status discussed with with the patient and nurse. Case discussed with Dr. Mann Plan discussed with: Patient, Other (RN) My Orders My Orders Orders - CRISTOBAL DEAN RESDIAYAN Procedure Category Date Status Time Complete Blood Count LAB 05/13/24 Verified 04:00 Dietary Evaluation Review Comments: 1. Continue diet regime 2. Advance diet as tolerated to CCHO 60g 3. F/u GI Expected Outcomes/Goals: 1. Pt will consume >75% of estimated needs within 2-3 days Date of Service: May 12, 2024 Billing Provider: JULIETA YOUNG MD Common Visit Codes: 67786-[id number] INP/OBS CARE(HIGH) Secondary Visit Codes: 97878-[id number] CARE PLAN 30 MINUTES CRISTOBAL DEAN RESDIENT May 12, 2024 15:48 JULIETA YOUNG MD May 14, 2024 09:16
[2024-05-12] MEDS: AMINO ACID INFUSION IN D10W 1,000 ML IV SCH (23:06)
[2024-05-13] VITALS (7 sets, daily range): BP systolic 111–148; BP diastolic 72–81; PULSE 78–99; RESP 18–19; TEMP 97.7–98.9; O2SAT 95–98
[2024-05-13 07:23] LABS: Platelet Count (auto) 124 10^3/uL (140-450); White Blood Cell 6.4 10^3/uL (4.4-10.8)
[2024-05-13 07:24] LABS: Alanine Aminotransferase 34 U/L (7-40); Alkaline Phosphatase 109 U/L (46-116); Anion Gap 6 (5-15); BUN/Creatinine Ratio 11.3 (10.0-20.0); Carbon Dioxide 27 mmol/L (20-31); Chloride 102 mmol/L (98-107); Glucose 104 mg/dL (74-106); Magnesium 1.8 mg/dL (1.6-2.6); Potassium 3.5 mmol/L (3.5-5.1)
[2024-05-13 07:25] LABS: Bilirubin, Total 0.4 mg/dL (0.2-1.0); Phosphorus 2.7 mg/dL (2.4-5.1)
[2024-05-13 07:27] LABS: Hematocrit 28.1 % (41.0-53.0); Hemoglobin 9.1 g/dL (13.5-17.5); Mean Corpuscular Hemoglobin 25.6 pg (28.0-32.0); Mean Corpuscular Hgb Conc. 32.5 g/dL (32.0-36.0); Mean Corpuscular Volume 78.8 fL (80.0-100.0); Red Blood Cells 3.56 10^6/uL (4.5-5.90); Red Cell Distribution Width 16.1 % (11.8-14.3)
[2024-05-13 07:38] LABS: Albumin 2.7 g/dL (3.2-4.8); Aspartate Aminotransferase 53 U/L (13-40); Blood Urea Nitrogen 7 mg/dL (9-23); Sodium 135 mmol/L (136-145); Total Protein 5.4 g/dL (5.7-8.2)
[2024-05-13 08:14] LABS: Basophils % (manual) 0 (0.0-2.0); Eosinophils % (manual) 0 (0-7); Myelocytes % 0; Promyelocytes % 0; Reactive Lymphocytes 0
[2024-05-13 10:09] LABS: Band Neutrophils % (manual) 8; Blast Cells 1; Lymphocytes % (manual) 14 (10.0-50.0); Metamyelocytes % 2; Monocytes % (manual) 10 (0-12); Platelet Estimate Decreased
--- NOTE | 2024-05-13 11:49 | DVHPN2 ---
Progress Note - Dictate Date Seen: May 13, 2024 Medical Necessity Reason Pt with a Central, PICC or Fol: No Subjective E: no major events o/n. c/o min LUQ pain. no N/V vital signs Vital Sign Date Time Temp Pulse Resp B/P (MAP) Pulse Ox O2 Delivery O2 Flow Rate FiO2 05/13/24 11:33 80 16 141/77 05/13/24 08:57 97.7 98 97.7 05/13/24 07:38 Room Air* 0 21 Total Intake and Output 05/12/24 05/12/24 05/13/24 15:00 23:00 07:00 Intake Total 100 ml 100 ml 1437 ml Balance 100 ml 100 ml 1437 ml medications Current Medications Medications Dose Ordered Sig/Polina Route Start Time Stop Time Status Last Admin Dose Admin Benazepril HCl 20 mg DAILY PO 05/11/24 10:00 05/13/24 07:52 20 MG Atorvastatin Calcium 10 mg HS PO 05/10/24 22:00 05/12/24 22:04 10 MG Acetaminophen/ Hydrocodone Bitart 1 tab Q4HP PRN PO 05/10/24 20:00 Ondansetron HCl 4 mg Q4HP PRN IV 05/10/24 20:00 Acetaminophen 650 mg Q6HP PRN PO 05/10/24 20:00 Morphine Sulfate 2 mg Q4HPRN PRN IV 05/10/24 20:00 05/13/24 11:33 2 MG Morphine Sulfate 2 mg Q30M PRN IV 05/10/24 23:15 Ceftriaxone Sodium 50 ml @ 100 mls/hr DAILY@0000 IV 05/12/24 00:00 05/12/24 23:59 100 MLS/HR Sodium Chloride 1,000 ml @ 100 mls/hr Q10H IV 05/11/24 10:30 05/13/24 06:05 100 MLS/HR Metronidazole 100 ml @ 100 mls/hr Q8HR IV 05/11/24 14:00 05/13/24 06:03 100 MLS/HR Pantoprazole Sodium 40 mg BID IV 05/11/24 22:00 05/13/24 07:52 40 MG Amino Acids 0 ml @ 0 mls/hr PER PHARMACY IV 05/11/24 21:30 Diagnostic Test (Pha) 1 strip Q6HR 05/12/24 12:00 05/13/24 11:46 1 STRIP Insulin Human Regular FOLLOW SLIDING SCALE Q6HR SC 05/12/24 12:00 05/13/24 11:46 2 UNITS Dextrose 50 ml UD IV 05/12/24 10:30 Amino Acids/ Electrolytes/ Dextrose 1,000 ml @ 41 mls/hr DAILY@2200 IV 05/12/24 22:00 05/12/24 23:06 41 MLS/HR objective GEN: NAD ABD: soft. min LUQ TTP. no guarding. laboratory and microbiology Laboratory Tests 05/13/24 05:07 Test 05/13/24 05:07 Range/Units Serum Glucose 104 74-106 mg/dL Assessment/Plan A: 1. 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 UGI today. if it shows no perforation/leak, then start po. 2. best chance for this patient is to get chemo to shrink the tumor and then surgery. Dietary Evaluation Review Comments: 1. Continue diet regime 2. Advance diet as tolerated to CCHO 60g 3. F/u GI Expected Outcomes/Goals: 1. Pt will consume >75% of estimated needs within 2-3 days Plan discussed with: Patient, LUCIA HolderShadi Samuel MD May 13, 2024 11:49
--- NOTE | 2024-05-13 14:44 | DVHPNRES ---
Progress Note Date Seen: May 13, 2024 Resident Creating Document: CRISTOBAL DEAN RESDIENT Medical Necessity Reason Pt with a Central, PICC or Fol: No Subjective Review of Systems Patient is a 63 year old male with a past medical history as described below came to the ED with the chief complaint of abdominal pain since the last 2-3 days before admission. Patient was admitted to the hospital in february 2024 for the complaints of 3 months of having intermittent diarrhea, heartburn and acidity and also about 2 weeks of black stools. Patient underwent a Abdomen/pelvic CT with IV contrast which showed showed 6.3 x 8.2 x 6.3 cm mass at the stomach fundus with multiple perigastic lymph nodes with largest measures 3.9 cm. 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 Patient followed with and was started on chemotherapy with the first session of chemotherapy done on sunday05/07/2024. patient reports following chemotherapy he started feeling abd discomfort and had loose stools. reports passing 4-5 dark stools since the last 2 days. Patient was admitted to the hospital for further workup. Past medical history: Hypertension, type 2 diabetes mellitus, hyperlipidemia Past surgical history: Denies Social history: Patient was a former smoker but has not smoked, drank alcohol no drugs over 1 year. Home medications: atorvastatin, benazapril 20mg daily, glipizide 10mg daily, metformin 500mg bid, protonix 40mg bid Today, 05/13, the patient seen and examined at the bedside. The patient is still complaining of abdominal pain. Patient reports: No new complaints, Feels better Changes from previous H/P or p: No Changes Objective vital signs Vital Sign Date Time Temp Pulse Resp B/P (MAP) Pulse Ox O2 Delivery O2 Flow Rate FiO2 05/13/24 13:00 98.6 80 18 138/72 (94) 98 98.6 05/13/24 07:38 Room Air* 0 21 Total Intake and Output 05/12/24 05/12/24 05/13/24 15:00 23:00 07:00 Intake Total 100 ml 100 ml 1437 ml Balance 100 ml 100 ml 1437 ml medications Current Medications Medications Dose Ordered Sig/Polina Route Start Time Stop Time Status Last Admin Dose Admin Benazepril HCl 20 mg DAILY PO 05/11/24 10:00 05/13/24 07:52 20 MG Atorvastatin Calcium 10 mg HS PO 05/10/24 22:00 05/12/24 22:04 10 MG Acetaminophen/ Hydrocodone Bitart 1 tab Q4HP PRN PO 05/10/24 20:00 Ondansetron HCl 4 mg Q4HP PRN IV 05/10/24 20:00 Acetaminophen 650 mg Q6HP PRN PO 05/10/24 20:00 Morphine Sulfate 2 mg Q4HPRN PRN IV 05/10/24 20:00 05/13/24 11:33 2 MG Morphine Sulfate 2 mg Q30M PRN IV 05/10/24 23:15 Ceftriaxone Sodium 50 ml @ 100 mls/hr DAILY@0000 IV 05/12/24 00:00 05/12/24 23:59 100 MLS/HR Sodium Chloride 1,000 ml @ 100 mls/hr Q10H IV 05/11/24 10:30 05/13/24 06:05 100 MLS/HR Metronidazole 100 ml @ 100 mls/hr Q8HR IV 05/11/24 14:00 05/13/24 06:03 100 MLS/HR Pantoprazole Sodium 40 mg BID IV 05/11/24 22:00 05/13/24 07:52 40 MG Amino Acids 0 ml @ 0 mls/hr PER PHARMACY IV 05/11/24 21:30 Diagnostic Test (Pha) 1 strip Q6HR 05/12/24 12:00 05/13/24 11:46 1 STRIP Insulin Human Regular FOLLOW SLIDING SCALE Q6HR SC 05/12/24 12:00 05/13/24 11:46 2 UNITS Dextrose 50 ml UD IV 05/12/24 10:30 Amino Acids/ Electrolytes/ Dextrose 1,000 ml @ 41 mls/hr DAILY@2200 IV 05/12/24 22:00 05/12/24 23:06 41 MLS/HR Examination General Appearance: Alert, Oriented X3, Cooperative, with mild distress HEENT: Atraumatic, PERRLA, EOMI, Mucous membrane moist/pink Respiratory: Clear to auscultation, Normal air movement Cardiovascular: Regular rate, Normal S1, Normal S2, No murmurs, no chest wall tenderness Abdominal: Mild abdominal tenderness Extremities: No clubbing, No cyanosis, No edema, Normal pulses, No tenderness/swelling Skin: No rashes, No breakdown, No significant lesion Neuro: Normal gait, Normal speech, Strength at 5/5 X4 ext, Normal tone, Sensation intact, Cranial nerves 3-12 NL, Reflexes 2+ Psych/Mental Status: Mental status NL, Mood NL laboratory and microbiology Laboratory Tests 05/13/24 05:07 Test 05/13/24 05:07 Range/Units Serum Glucose 104 74-106 mg/dL Microbiology Date/Time Source Procedure Growth Status 05/11/24 14:37 Stool Stool Culture - Preliminary Resulted 05/11/24 14:37 Stool Shiga Toxin I & II - Final Resulted Labs and/or images reviewed: Labs reviewed by me, Image(s) reviewed by me Problem List/Assessment/Plan Problem List/Assessment/Plan This is a 63-year-old male with past medical history of hypertension, diabetes type 2, hyperlipidemia, presented to the hospital with abdominal pain and black stool since 2-3 days. Admitted on 05/10. 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 Dc, started chemotherapy on 05/07, since that time has abdominal pain and black diarrhea Upper GI endoscopy, from 03/03, shows 7-8 cm gastric mass in the fundus which was friable polypoid with central ulceration with oozing and with increased bleeding CT scan with IV contrast, shows 7.1 x 5 cm gastric fundus mass corresponding to known adenocarcinoma with evidence of interval contained perforation at the level of the splenic hilum with mild adjacent fat stranding but no free intraperitoneal air or fluid in the abdomen or pelvis. No contrast extravasation is seen, left gastric and perigastric metastatic lymphadenopathy measuring up to 3.9 x 2.7 cm, proctocolitis (infectious or inflammatory C difficile toxin is negative Stool occult blood is positive GI is on the board, recommended IV PPI Surgery is on the board, planned for Gastrografin study for tomorrow Check stool ova and parasite Stool bacterial culture IV normal saline 100 mL/hour Continue ceftriaxone, started on 05/12 Continue metronidazole, started 05/11 Transaminitis AST/ALT raised, downtrending Mild Hyponatremia Monitoring [id number] Malnutrition Albumin is 3.1 Amino acid infusion Uncontrolled diabetes mellitus Hb A1c, from 02/27 shows 7.7 Insulin regular, according to mild sliding scale Hypertension Hypertensive heart Disease Continue benazepril 20 mg daily Check vitals q.6 hours Dyslipidemia HDL is 30 Continue atorvastatin 10 mg daily Moderate anemia, microcytic Hypochromic, almost stable Thrombocytopenia Monitoring DIET: NPO, because of the patient intolerance of oral intake, TPN is given DVT prophylax: Due to possible GI bleeding, anticoagulant is not indicated, SCDs GI prophylaxis: Protonix 40 mg IV b.i.d. Bowel regimen: Patient has diarrhea, no indication for laxative Code status: Full code, goal of care discussed more than 20 minutes with the patient. DISPOSITION: Med/surg Patient's status discussed with with the patient, the patient's sister on bedside, and nurse. Case discussed with Dr. Gomez Plan discussed with: Patient (Sister), Other (RN) Dietary Evaluation Review Comments: 1. Continue diet regime 2. Advance diet as tolerated to CCHO 60g 3. F/u GI Expected Outcomes/Goals: 1. Pt will consume >75% of estimated needs within 2-3 days Date of Service: May 13, 2024 Billing Provider: KRYSTA GOMEZ MD Common Visit Codes: [id number] INP/OBS CARE(HIGH) QUEENIEANNE-MARIEQUEENIE BEAVERAaron RESDIENT May 13, 2024 14:44 KRYSTA GOMEZ MD May 13, 2024 18:11
[2024-05-13] MEDS ORDERED: POTASSIUM CHL 20MEQ/100ML 100 ML IV ONE (16:30)
[2024-05-13] MEDS: GASTROGRAFIN 120 ML SOL ONE (17:20)
[2024-05-13] MEDS: EZ-GAS II GRANULES (RADIOLOGY USE) PO ONE (17:20)
--- NOTE | 2024-05-13 17:57 | DVHPN2 ---
Progress Note - Dictate Date Seen: May 13, 2024 Medical Necessity Reason Pt with a Central, PICC or Fol: No Subjective 63-year-old male diagnosed with gastric adenocarcinoma with surrounding lymph node involvement S/P 1st chemotherapy round Patient seen at bedside he is resting comfortably he denies any nausea vomiting Minimal abdominal pain Patient is scheduled for upper GI series this evening vital signs Vital Sign Date Time Temp Pulse Resp B/P (MAP) Pulse Ox O2 Delivery O2 Flow Rate FiO2 05/13/24 16:14 80 18 137/70 05/13/24 13:00 98.6 98 98.6 05/13/24 07:38 Room Air* 0 21 Total Intake and Output 05/12/24 05/12/24 05/13/24 15:00 23:00 07:00 Intake Total 100 ml 100 ml 1437 ml Balance 100 ml 100 ml 1437 ml medications Current Medications Medications Dose Ordered Sig/Polina Route Start Time Stop Time Status Last Admin Dose Admin Benazepril HCl 20 mg DAILY PO 05/11/24 10:00 05/13/24 07:52 20 MG Atorvastatin Calcium 10 mg HS PO 05/10/24 22:00 05/12/24 22:04 10 MG Acetaminophen/ Hydrocodone Bitart 1 tab Q4HP PRN PO 05/10/24 20:00 Ondansetron HCl 4 mg Q4HP PRN IV 05/10/24 20:00 Acetaminophen 650 mg Q6HP PRN PO 05/10/24 20:00 Morphine Sulfate 2 mg Q4HPRN PRN IV 05/10/24 20:00 05/13/24 16:14 2 MG Morphine Sulfate 2 mg Q30M PRN IV 05/10/24 23:15 Ceftriaxone Sodium 50 ml @ 100 mls/hr DAILY@0000 IV 05/12/24 00:00 05/12/24 23:59 100 MLS/HR Sodium Chloride 1,000 ml @ 100 mls/hr Q10H IV 05/11/24 10:30 05/13/24 06:05 100 MLS/HR Metronidazole 100 ml @ 100 mls/hr Q8HR IV 05/11/24 14:00 05/13/24 17:06 100 MLS/HR Pantoprazole Sodium 40 mg BID IV 05/11/24 22:00 05/13/24 07:52 40 MG Amino Acids 0 ml @ 0 mls/hr PER PHARMACY IV 05/11/24 21:30 Diagnostic Test (Pha) 1 strip Q6HR 05/12/24 12:00 05/13/24 11:46 1 STRIP Insulin Human Regular FOLLOW SLIDING SCALE Q6HR SC 05/12/24 12:00 05/13/24 11:46 2 UNITS Dextrose 50 ml UD IV 05/12/24 10:30 Amino Acids/ Electrolytes/ Dextrose 1,000 ml @ 41 mls/hr DAILY@2200 IV 05/12/24 22:00 05/12/24 23:06 41 MLS/HR Potassium Chloride 100 ml @ 50 mls/hr Q2H IV 05/13/24 16:45 05/13/24 20:44 objective General Appearance: Alert, Oriented X3, Cooperative, Mild distress HEENT: Atraumatic, PERRLA, EOMI, Mucous membr. moist/pink Respiratory: Clear to auscultation, Normal air movement Cardiovascular: Regular rate, Normal S1, Normal S2, No murmurs Abdominal: Normal bowel sounds, Soft, No hepatospenomegaly, No masses, Other (Reports tenderness) Extremities: No clubbing, No cyanosis, No edema, Normal pulses, No tenderness/swelling Skin: No rashes, No breakdown, No significant lesion Neuro: Normal speech, Normal tone, Sensation intact, Cranial nerves 3-12 NL, Reflexes 2+, Other (Generalized weakness) Psych/Mental Status: Mental status NL, Mood NL laboratory and microbiology Laboratory Tests 05/13/24 05:07 Test 05/13/24 05:07 Range/Units Serum Glucose 104 74-106 mg/dL Problems(with codes): (1) Abnormal finding on GI tract imaging (2) Gastric malignant neoplasm (3) Dark stools (4) Nausea and vomiting (5) Weakness (6) Anemia of chronic disease (7) Acute abdominal pain Prognosis Plan Continue supportive care IV fluid hydration IV Protonix 40 mg q.12 hours Patient is currently NPO If the upper GI x-ray does not show any extravasation of contrast then we can start clear liquid diet and advance slowly Dietary Evaluation Review Comments: 1. Continue diet regime 2. Advance diet as tolerated to CCHO 60g 3. F/u GI Expected Outcomes/Goals: 1. Pt will consume >75% of estimated needs within 2-3 days Plan discussed with: Patient BYRON NEWSOME MD May 13, 2024 17:57
[2024-05-13] MEDS: ONDANSETRON HCL 4 MG/2 ML VIAL IV PRN (18:20)
[2024-05-13] MEDS: POTASSIUM CHL 20MEQ/100ML 100 ML IV SCH (18:24)
--- NOTE | 2024-05-13 20:26 | DVH ---
XY UGI WITH GASTROGRAFIN, HISTORY: poss gastric perforation COMPARISON: CT 05/11 PROCEDURE: A baker head radiograph was obtained prior to the procedure. Gastrografin administered orally, and radiographs were obtained under intermittent fluoroscopic observation. Total fluoroscopic time w as 0.9 minutes. DAP 483 . FINDINGS: The esophagus was normal in caliber with no stricture, filling defect or wall irregularity demonstrat ed. Normal esophageal peristalsis was observed. There was prompt passage of contrast through a normal appearing gastroesophageal junction. The stomac h was able to be distended. There is contour irregularity and mass lesions seen at the gastric fundus . An defect is seen extending posteriorly along the gastric fundus. The duodenal bulb appears unremarkable. Contrast flowed into more distal loops of small bowel, with n o abnormality identified. IMPRESSION: Contour irregularity and mass lesions seen at the gastric fundus. An defect is seen extending posteriorly along the gastric fundus, which correlates to the prior CT sc an. This could represent an ulcer. No obvious extravasation of contrast is seen into the peritoneum.
[2024-05-13] MEDS: LOPERAMIDE HCL 2 MG CAP/TAB PO PRN (23:54)
[2024-05-14] VITALS (7 sets, daily range): BP systolic 122–145; BP diastolic 69–78; PULSE 82–95; RESP 16–18; TEMP 97.9–98.9; O2SAT 96–100
[2024-05-14 06:42] LABS: Hemoglobin 10.3 g/dL (13.5-17.5); Mean Corpuscular Hemoglobin 25.2 pg (28.0-32.0); Mean Corpuscular Hgb Conc. 32.1 g/dL (32.0-36.0); Mean Corpuscular Volume 78.4 fL (80.0-100.0); Platelet Count (auto) 174 10^3/uL (140-450); Red Blood Cells 4.09 10^6/uL (4.5-5.90); Red Cell Distribution Width 16.3 % (11.8-14.3); White Blood Cell 19.4 10^3/uL (4.4-10.8)
[2024-05-14 06:49] LABS: Alanine Aminotransferase 26 U/L (7-40); Anion Gap 3 (5-15); Carbon Dioxide 29 mmol/L (20-31); Chloride 104 mmol/L (98-107); Magnesium 1.9 mg/dL (1.6-2.6); Sodium 136 mmol/L (136-145)
[2024-05-14 06:50] LABS: Bilirubin, Total 0.3 mg/dL (0.2-1.0); Total Protein 5.7 g/dL (5.7-8.2)
[2024-05-14 06:58] LABS: Albumin 2.8 g/dL (3.2-4.8); Alkaline Phosphatase 145 U/L (46-116); Aspartate Aminotransferase 49 U/L (13-40); Blood Urea Nitrogen 8 mg/dL (9-23); Calcium 8.3 mg/dL (8.7-10.4); Glucose 158 mg/dL (74-106); Phosphorus 1.6 mg/dL (2.4-5.1); Potassium 3.4 mmol/L (3.5-5.1)
[2024-05-14 07:13] LABS: Basophils % (manual) 0 (0.0-2.0); Blast Cells 0; Promyelocytes % 0; Reactive Lymphocytes 0
--- NOTE | 2024-05-14 07:39 | DVHPN2 ---
Progress Note - Dictate Date Seen: May 14, 2024 Medical Necessity Reason Pt with a Central, PICC or Fol: No Subjective E: no major events o/n. feeling ok. vital signs Vital Sign Date Time Temp Pulse Resp B/P (MAP) Pulse Ox O2 Delivery O2 Flow Rate FiO2 05/14/24 05:00 98.2 93 18 122/71 (88) 96 98.2 05/13/24 20:00 Room Air* 0 21 Total Intake and Output 05/13/24 05/13/24 05/14/24 15:00 23:00 07:00 Intake Total 100 ml 100 ml 0 ml Balance 100 ml 100 ml 0 ml medications Current Medications Medications Dose Ordered Sig/Polina Route Start Time Stop Time Status Last Admin Dose Admin Benazepril HCl 20 mg DAILY PO 05/11/24 10:00 05/13/24 07:52 20 MG Atorvastatin Calcium 10 mg HS PO 05/10/24 22:00 05/13/24 22:10 10 MG Acetaminophen/ Hydrocodone Bitart 1 tab Q4HP PRN PO 05/10/24 20:00 Ondansetron HCl 4 mg Q4HP PRN IV 05/10/24 20:00 05/13/24 18:20 4 MG Acetaminophen 650 mg Q6HP PRN PO 05/10/24 20:00 Morphine Sulfate 2 mg Q4HPRN PRN IV 05/10/24 20:00 05/14/24 01:58 2 MG Morphine Sulfate 2 mg Q30M PRN IV 05/10/24 23:15 Ceftriaxone Sodium 50 ml @ 100 mls/hr DAILY@0000 IV 05/12/24 00:00 05/13/24 23:56 100 MLS/HR Sodium Chloride 1,000 ml @ 100 mls/hr Q10H IV 05/11/24 10:30 05/13/24 20:16 100 MLS/HR Metronidazole 100 ml @ 100 mls/hr Q8HR IV 05/11/24 14:00 05/14/24 04:40 100 MLS/HR Pantoprazole Sodium 40 mg BID IV 05/11/24 22:00 05/13/24 21:52 40 MG Amino Acids 0 ml @ 0 mls/hr PER PHARMACY IV 05/11/24 21:30 Diagnostic Test (Pha) 1 strip Q6HR 05/12/24 12:00 05/14/24 04:49 1 STRIP Insulin Human Regular FOLLOW SLIDING SCALE Q6HR SC 05/12/24 12:00 05/14/24 04:49 4 UNITS Dextrose 50 ml UD IV 05/12/24 10:30 Amino Acids/ Electrolytes/ Dextrose 1,000 ml @ 41 mls/hr DAILY@2200 IV 05/12/24 22:00 05/13/24 21:52 41 MLS/HR Loperamide HCl 2 mg PRN PRN PO 05/13/24 23:00 05/14/24 04:38 2 MG objective GEN: NAD ABD: soft. min LUQ TTP. no guarding. UGI: no perforation. laboratory and microbiology Laboratory Tests 05/14/24 05:37 Test 05/14/24 05:37 Range/Units Serum Glucose 158 H 74-106 mg/dL Assessment/Plan A: 1. 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 clear liquid diet. 2. if tolerating diet, dc home and resume chemo. Dietary Evaluation Review Comments: 1. Continue diet regime 2. Advance diet as tolerated to CCHO 60g 3. F/u GI Expected Outcomes/Goals: 1. Pt will consume >75% of estimated needs within 2-3 days Plan discussed with: Patient RITA RICARDO MD May 14, 2024 07:39
[2024-05-14] MEDS ORDERED: POTASSIUM EFFERVESENT TAB 25 MEQ GT ONE ×2 (09:00→10:15)
[2024-05-14] MEDS: POTASSIUM PHOSPHATE 22 MEQ in SODIUM CHL 0.9% 100 ML IV ONE (09:44)
[2024-05-14] MEDS: POTASSIUM EFFERVESENT TAB 25 MEQ PO ONE (10:07)
[2024-05-14 11:16] LABS: Band Neutrophils % (manual) 9; Eosinophils % (manual) 2 (0-7); Lymphocytes % (manual) 7 (10.0-50.0); Metamyelocytes % 5; Monocytes % (manual) 14 (0-12); Myelocytes % 4
[2024-05-14 11:17] LABS: Platelet Estimate Adequate
[2024-05-14] MEDS: LACTATED RINGER'S 1,000 ML IV ONE (13:14)
[2024-05-14] MEDS: MAGNESIUM SULFATE 1GM/100ML 100 ML IV ONE (13:15)
[2024-05-14 13:25] LABS: Mean Corpuscular Volume 79.2 fL (80.0-100.0); Red Cell Distribution Width 16.7 % (11.8-14.3)
[2024-05-14 13:27] LABS: Hemoglobin 10.3 g/dL (13.5-17.5); Mean Corpuscular Hemoglobin 24.8 pg (28.0-32.0); Mean Corpuscular Hgb Conc. 31.4 g/dL (32.0-36.0); Platelet Count (auto) 213 10^3/uL (140-450); Red Blood Cells 4.17 10^6/uL (4.5-5.90); White Blood Cell 26.8 10^3/uL (4.4-10.8)
[2024-05-14 13:34] LABS: Basophils % (manual) 0 (0.0-2.0); Eosinophils % (manual) 0 (0-7); Myelocytes % 0; Promyelocytes % 0; Reactive Lymphocytes 0
--- NOTE | 2024-05-14 14:09 | DVHPNRES ---
Progress Note Date Seen: May 14, 2024 Resident Creating Document: CRISTOBAL DEAN RESDIENT Medical Necessity Reason Pt with a Central, PICC or Fol: No Subjective Review of Systems Patient is a 63 year old male with a past medical history as described below came to the ED with the chief complaint of abdominal pain since the last 2-3 days before admission. Patient was admitted to the hospital in february 2024 for the complaints of 3 months of having intermittent diarrhea, heartburn and acidity and also about 2 weeks of black stools. Patient underwent a Abdomen/pelvic CT with IV contrast which showed showed 6.3 x 8.2 x 6.3 cm mass at the stomach fundus with multiple perigastic lymph nodes with largest measures 3.9 cm. 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 Patient followed with and was started on chemotherapy with the first session of chemotherapy done on sunday05/07/2024. patient reports following chemotherapy he started feeling abd discomfort and had loose stools. reports passing 4-5 dark stools since the last 2 days. Patient was admitted to the hospital for further workup. Past medical history: Hypertension, type 2 diabetes mellitus, hyperlipidemia Past surgical history: Denies Social history: Patient was a former smoker but has not smoked, drank alcohol no drugs over 1 year. Home medications: atorvastatin, benazapril 20mg daily, glipizide 10mg daily, metformin 500mg bid, protonix 40mg bid Today, 05/14, the patient seen and examined at the bedside. The patient is complaining of watery diarrhea. Objective vital signs Vital Sign Date Time Temp Pulse Resp B/P (MAP) Pulse Ox O2 Delivery O2 Flow Rate FiO2 05/14/24 12:43 98.9 95 17 138/74 (95) 98 98.9 05/14/24 08:05 Room Air* 0 21 Total Intake and Output 05/13/24 05/13/24 05/14/24 15:00 23:00 07:00 Intake Total 100 ml 100 ml 0 ml Balance 100 ml 100 ml 0 ml medications Current Medications Medications Dose Ordered Sig/Polina Route Start Time Stop Time Status Last Admin Dose Admin Benazepril HCl 20 mg DAILY PO 05/11/24 10:00 05/14/24 09:20 20 MG Atorvastatin Calcium 10 mg HS PO 05/10/24 22:00 05/13/24 22:10 10 MG Acetaminophen/ Hydrocodone Bitart 1 tab Q4HP PRN PO 05/10/24 20:00 Ondansetron HCl 4 mg Q4HP PRN IV 05/10/24 20:00 05/13/24 18:20 4 MG Acetaminophen 650 mg Q6HP PRN PO 05/10/24 20:00 Morphine Sulfate 2 mg Q4HPRN PRN IV 05/10/24 20:00 05/14/24 10:13 2 MG Morphine Sulfate 2 mg Q30M PRN IV 05/10/24 23:15 Ceftriaxone Sodium 50 ml @ 100 mls/hr DAILY@0000 IV 05/12/24 00:00 05/13/24 23:56 100 MLS/HR Metronidazole 100 ml @ 100 mls/hr Q8HR IV 05/11/24 14:00 05/14/24 04:40 100 MLS/HR Pantoprazole Sodium 40 mg BID IV 05/11/24 22:00 05/14/24 09:33 40 MG Amino Acids 0 ml @ 0 mls/hr PER PHARMACY IV 05/11/24 21:30 Diagnostic Test (Pha) 1 strip Q6HR 05/12/24 12:00 05/14/24 11:48 1 STRIP Insulin Human Regular FOLLOW SLIDING SCALE Q6HR SC 05/12/24 12:00 05/14/24 11:48 4 UNITS Dextrose 50 ml UD IV 05/12/24 10:30 Amino Acids/ Electrolytes/ Dextrose 1,000 ml @ 41 mls/hr DAILY@2200 IV 05/12/24 22:00 05/13/24 21:52 41 MLS/HR Loperamide HCl 2 mg PRN PRN PO 05/13/24 23:00 05/14/24 09:19 2 MG Saccharomyces Boulardii 250 mg DAILY PO 05/15/24 10:00 Lactated Ringer's 1,000 ml @ 100 mls/hr Q10H IV 05/14/24 10:30 Examination General Appearance: Alert, Oriented X3, Cooperative, with mild distress HEENT: Atraumatic, PERRLA, EOMI, Mucous membrane moist/pink Respiratory: Clear to auscultation, Normal air movement Cardiovascular: Regular rate, Normal S1, Normal S2, No murmurs, no chest wall tenderness Abdominal: Mild abdominal tenderness Extremities: No clubbing, No cyanosis, No edema, Normal pulses, No tenderness/swelling Skin: No rashes, No breakdown, No significant lesion Neuro: Normal gait, Normal speech, Strength at 5/5 X4 ext, Normal tone, Sensation intact, Cranial nerves 3-12 NL, Reflexes 2+ Psych/Mental Status: Mental status NL, Mood NL laboratory and microbiology Laboratory Tests 05/14/24 12:57 05/14/24 05:37 Test 05/14/24 05:37 Range/Units Serum Glucose 158 H 74-106 mg/dL Microbiology Date/Time Source Procedure Growth Status 05/11/24 14:37 Stool Stool Culture - Preliminary Resulted 05/11/24 14:37 Stool Shiga Toxin I & II - Final Resulted Labs and/or images reviewed: Labs reviewed by me, Image(s) reviewed by me Problem List/Assessment/Plan Problem List/Assessment/Plan This is a 63-year-old male with past medical history of hypertension, diabetes type 2, hyperlipidemia, presented to the hospital with abdominal pain and black stool since 2-3 days. Admitted on 05/10. 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 Dc, started chemotherapy on 05/07, since that time has abdominal pain and black diarrhea Upper GI endoscopy, from 03/03, shows 7-8 cm gastric mass in the fundus which was friable polypoid with central ulceration with oozing and with increased bleeding CT scan with IV contrast, shows 7.1 x 5 cm gastric fundus mass corresponding to known adenocarcinoma with evidence of interval contained perforation at the level of the splenic hilum with mild adjacent fat stranding but no free intraperitoneal air or fluid in the abdomen or pelvis. No contrast extravasation is seen, left gastric and perigastric metastatic lymphadenopathy measuring up to 3.9 x 2.7 cm, proctocolitis (infectious or inflammatory C difficile toxin is negative Stool occult blood is positive GI is on the board, recommended IV PPI Upper GI series shows a defect, extending posteriorly along the gastric fundus. This could represent an ulcer. No obvious extravasation of contrast is seen into the peritoneum Surgery recommended, if the patient could tolerate oral intake, DC home in resume chemotherapy Check stool ova and parasite Stool culture shows normal enteric abby, with negative shiga toxin 1 and 2 IV normal saline 100 mL/hour Continue ceftriaxone, started on 05/12 Continue metronidazole, started 05/11 Due to up trending of WBCs at 26.8, and severe diarrhea the patient is now stable to be discharged, Florastor 250 mg daily Loperamide 2 mg p.r.n. Transaminitis AST/ALT raised, downtrending Mild Hyponatremia Monitoring Hypomagnesemia Supplemented [id number] Malnutrition Albumin is 3.1 Amino acid infusion Uncontrolled diabetes mellitus Hb A1c, from 02/27 shows 7.7 Insulin regular, according to mild sliding scale Hypertension Hypertensive heart Disease Continue benazepril 20 mg daily Check vitals q.6 hours Dyslipidemia HDL is 30 Continue atorvastatin 10 mg daily Moderate anemia, microcytic Hypochromic, almost stable Thrombocytopenia Monitoring DIET: Clear liquid DVT prophylax: Due to possible GI bleeding, anticoagulant is not indicated, SCDs GI prophylaxis: Protonix 40 mg IV b.i.d. Bowel regimen: Patient has diarrhea, no indication for laxative Code status: Full code DISPOSITION: Med/surg Due to up trending of WBC at 26.8, and severe diarrhea the patient is not table at the moment to be discharged, GI recommended if leukocytosis persists repeat CT abdominal Patient's status discussed with with the patient. Case discussed with Dr. Mann Plan discussed with: Patient, Other (RN) My Orders My Orders Orders - CRISTOBAL DEAN RESDIAYAN Procedure Category Date Status Time Clear Liq Diet DIET 05/14/24 Transmitted Breakfast Dietary Evaluation Review Comments: 1. Continue diet regime 2. Advance diet as tolerated to CCHO 60g 3. F/u GI Expected Outcomes/Goals: 1. Pt will consume >75% of estimated needs within 2-3 days Date of Service: May 14, 2024 Billing Provider: JULIETA YOUNG MD Common Visit Codes: [id number] INP/OBS CARE(HIGH) FELIPA DEANWAAaron RESDIENT May 14, 2024 14:09 JULIETA YOUNG MD May 15, 2024 09:40
[2024-05-14 14:13] LABS: Band Neutrophils % (manual) 20; Blast Cells 1; Hypochromia Slight; Lymphocytes % (manual) 21 (10.0-50.0); Metamyelocytes % 6; Monocytes % (manual) 7 (0-12); Platelet Estimate Adequate
--- NOTE | 2024-05-14 15:07 | DVHPN2 ---
Progress Note - Dictate Date Seen: May 14, 2024 Medical Necessity Reason Pt with a Central, PICC or Fol: No Subjective 63-year-old male diagnosed with gastric adenocarcinoma with surrounding lymph node involvement S/P 1st chemotherapy round Patient seen at bedside he is resting comfortably he denies any nausea vomiting Upper GI series does show an defect along the fundus related to possible ulceration at the gastric mass fundus area however there was no extravasation of contrast vital signs Vital Sign Date Time Temp Pulse Resp B/P (MAP) Pulse Ox O2 Delivery O2 Flow Rate FiO2 05/14/24 12:43 98.9 95 17 138/74 (95) 98 98.9 05/14/24 08:05 Room Air* 0 21 Total Intake and Output 05/13/24 05/13/24 05/14/24 15:00 23:00 07:00 Intake Total 100 ml 100 ml 0 ml Balance 100 ml 100 ml 0 ml medications Current Medications Medications Dose Ordered Sig/Polina Route Start Time Stop Time Status Last Admin Dose Admin Benazepril HCl 20 mg DAILY PO 05/11/24 10:00 05/14/24 09:20 20 MG Atorvastatin Calcium 10 mg HS PO 05/10/24 22:00 05/13/24 22:10 10 MG Acetaminophen/ Hydrocodone Bitart 1 tab Q4HP PRN PO 05/10/24 20:00 Ondansetron HCl 4 mg Q4HP PRN IV 05/10/24 20:00 05/13/24 18:20 4 MG Acetaminophen 650 mg Q6HP PRN PO 05/10/24 20:00 Morphine Sulfate 2 mg Q4HPRN PRN IV 05/10/24 20:00 05/14/24 10:13 2 MG Morphine Sulfate 2 mg Q30M PRN IV 05/10/24 23:15 Ceftriaxone Sodium 50 ml @ 100 mls/hr DAILY@0000 IV 05/12/24 00:00 05/13/24 23:56 100 MLS/HR Metronidazole 100 ml @ 100 mls/hr Q8HR IV 05/11/24 14:00 05/14/24 04:40 100 MLS/HR Pantoprazole Sodium 40 mg BID IV 05/11/24 22:00 05/14/24 09:33 40 MG Diagnostic Test (Pha) 1 strip Q6HR 05/12/24 12:00 05/14/24 11:48 1 STRIP Insulin Human Regular FOLLOW SLIDING SCALE Q6HR SC 05/12/24 12:00 05/14/24 11:48 4 UNITS Dextrose 50 ml UD IV 05/12/24 10:30 Amino Acids/ Electrolytes/ Dextrose 1,000 ml @ 41 mls/hr DAILY@2200 IV 05/12/24 22:00 05/14/24 21:59 05/13/24 21:52 41 MLS/HR Loperamide HCl 2 mg PRN PRN PO 05/13/24 23:00 05/14/24 09:19 2 MG Saccharomyces Boulardii 250 mg DAILY PO 05/15/24 10:00 Lactated Ringer's 1,000 ml @ 100 mls/hr Q10H IV 05/14/24 10:30 objective General Appearance: Alert, Oriented X3, Cooperative, Mild distress HEENT: Atraumatic, PERRLA, EOMI, Mucous membr. moist/pink Respiratory: Clear to auscultation, Normal air movement Cardiovascular: Regular rate, Normal S1, Normal S2, No murmurs Abdominal: Normal bowel sounds, Soft, No hepatospenomegaly, No masses, Other (Reports tenderness) Extremities: No clubbing, No cyanosis, No edema, Normal pulses, No tenderness/swelling Skin: No rashes, No breakdown, No significant lesion Neuro: Normal speech, Normal tone, Sensation intact, Cranial nerves 3-12 NL, Reflexes 2+, Other (Generalized weakness) Psych/Mental Status: Mental status NL, Mood NL laboratory and microbiology Laboratory Tests 05/14/24 12:57 05/14/24 05:37 Test 05/14/24 05:37 Range/Units Serum Glucose 158 H 74-106 mg/dL Problems(with codes): (1) Abnormal finding on GI tract imaging (2) Gastric malignant neoplasm (3) Nausea and vomiting (4) Weakness (5) Dark stools Prognosis Plan Patient is clinically improving Patient has been cleared by surgical consult for clear liquid diet If he has tolerates a clear liquid we can advance to full liquid and he can be discharged on a full liquid diet Outpatient follow up with his oncologist for ongoing chemotherapy Dietary Evaluation Review Comments: 1. Continue diet regime 2. Advance diet as tolerated to CCHO 60g 3. F/u GI Expected Outcomes/Goals: 1. Pt will consume >75% of estimated needs within 2-3 days Plan discussed with: Patient BYRON NEWSOME MD May 14, 2024 15:07
[2024-05-14] MEDS: LACTATED RINGER'S 1,000 ML IV SCH (16:57)
[2024-05-14 19:48] LABS: Hemoglobin 10.5 g/dL (13.5-17.5)
[2024-05-14 19:51] LABS: Hematocrit 32.8 % (41.0-53.0); Mean Corpuscular Hemoglobin 25.2 pg (28.0-32.0); Mean Corpuscular Hgb Conc. 32.1 g/dL (32.0-36.0); Mean Corpuscular Volume 78.5 fL (80.0-100.0); Platelet Count (auto) 189 10^3/uL (140-450); Red Blood Cells 4.18 10^6/uL (4.5-5.90); Red Cell Distribution Width 16.9 % (11.8-14.3); White Blood Cell 23.6 10^3/uL (4.4-10.8)
[2024-05-14 19:53] LABS: Basophils % (manual) 0 (0.0-2.0); Blast Cells 0; Eosinophils % (manual) 0 (0-7); Promyelocytes % 0; Reactive Lymphocytes 0
[2024-05-14 20:03] LABS: Lactic Acid w/Reflex 2.1 mmol/L (0.4-2.0)
[2024-05-14 20:23] LABS: Band Neutrophils % (manual) 29; Lymphocytes % (manual) 7 (10.0-50.0); Metamyelocytes % 2; Monocytes % (manual) 12 (0-12); Myelocytes % 2; Platelet Estimate Adequate
[2024-05-14] MEDS: CEFEPIME 1GM/ 50ML 50 ML IV SCH (21:18)
[2024-05-14] MEDS: HYDROcodone-ACET 5/325MG TAB PO PRN (21:19)
[2024-05-14] MEDS ORDERED: LACTATED RINGER'S 500 ML IV ONE ×2 (23:00→23:15)
[2024-05-14] MEDS: LACTATED RINGER'S 500 ML IV ONE (23:21)
[2024-05-15] VITALS (7 sets, daily range): BP systolic 121–138; BP diastolic 65–79; PULSE 82–95; RESP 12–18; TEMP 97.7–98.7; O2SAT 96–99
[2024-05-15 06:55] LABS: Alanine Aminotransferase 24 U/L (7-40); Anion Gap 3 (5-15); BUN/Creatinine Ratio 8.3 (10.0-20.0); Carbon Dioxide 28 mmol/L (20-31); Chloride 103 mmol/L (98-107)
[2024-05-15 06:56] LABS: Albumin 2.6 g/dL (3.2-4.8); Alkaline Phosphatase 151 U/L (46-116); Aspartate Aminotransferase 58 U/L (13-40); Bilirubin, Total 0.4 mg/dL (0.2-1.0); Blood Urea Nitrogen 5 mg/dL (9-23); Calcium 8.3 mg/dL (8.7-10.4); Potassium 3.4 mmol/L (3.5-5.1); Sodium 134 mmol/L (136-145)
[2024-05-15 06:58] LABS: Glucose 117 mg/dL (74-106); Total Protein 5.2 g/dL (5.7-8.2)
[2024-05-15 07:08] LABS: Hematocrit 30.3 % (41.0-53.0); Hemoglobin 9.7 g/dL (13.5-17.5); Mean Corpuscular Hemoglobin 25.1 pg (28.0-32.0); Mean Corpuscular Hgb Conc. 31.9 g/dL (32.0-36.0); Mean Corpuscular Volume 78.5 fL (80.0-100.0); Platelet Count (auto) 170 10^3/uL (140-450); Red Blood Cells 3.86 10^6/uL (4.5-5.90); Red Cell Distribution Width 16.5 % (11.8-14.3)
[2024-05-15 07:12] LABS: Basophils % (manual) 0 (0.0-2.0); Blast Cells 0; Metamyelocytes % 0; Myelocytes % 0; Promyelocytes % 0; Reactive Lymphocytes 0
[2024-05-15] MEDS: GASTROGRAFIN 30 ML SOL ONE (07:57)
[2024-05-15 08:20] LABS: Band Neutrophils % (manual) 6; Eosinophils % (manual) 1 (0-7); Lymphocytes % (manual) 17 (10.0-50.0); Monocytes % (manual) 10 (0-12)
[2024-05-15 08:21] LABS: Platelet Estimate Adequate
--- NOTE | 2024-05-15 08:25 | DVHPN2 ---
Progress Note - Dictate Date Seen: May 15, 2024 Medical Necessity Reason Pt with a Central, PICC or Fol: No Subjective E: no major events o/n. abdominal pain is tolerable and unchanged but c/o more diarrhea. bree clear liquid diet. vital signs Vital Sign Date Time Temp Pulse Resp B/P (MAP) Pulse Ox O2 Delivery O2 Flow Rate FiO2 05/15/24 08:14 Room Air* 0 21 05/15/24 05:44 88 18 127/68 05/15/24 05:00 98.6 97 98.6 Total Intake and Output 05/14/24 05/14/24 05/15/24 15:00 23:00 07:00 Intake Total 205 ml 1636 ml 850 ml Balance 205 ml 1636 ml 850 ml medications Current Medications Medications Dose Ordered Sig/Polina Route Start Time Stop Time Status Last Admin Dose Admin Benazepril HCl 20 mg DAILY PO 05/11/24 10:00 05/14/24 09:20 20 MG Atorvastatin Calcium 10 mg HS PO 05/10/24 22:00 05/14/24 21:19 10 MG Acetaminophen/ Hydrocodone Bitart 1 tab Q4HP PRN PO 05/10/24 20:00 05/14/24 21:19 1 TAB Ondansetron HCl 4 mg Q4HP PRN IV 05/10/24 20:00 05/13/24 18:20 4 MG Acetaminophen 650 mg Q6HP PRN PO 05/10/24 20:00 Morphine Sulfate 2 mg Q4HPRN PRN IV 05/10/24 20:00 05/15/24 05:14 2 MG Morphine Sulfate 2 mg Q30M PRN IV 05/10/24 23:15 Metronidazole 100 ml @ 100 mls/hr Q8HR IV 05/11/24 14:00 05/15/24 05:13 100 MLS/HR Pantoprazole Sodium 40 mg BID IV 05/11/24 22:00 05/14/24 21:18 40 MG Diagnostic Test (Pha) 1 strip Q6HR 05/12/24 12:00 05/15/24 05:14 1 STRIP Insulin Human Regular FOLLOW SLIDING SCALE Q6HR SC 05/12/24 12:00 05/15/24 05:31 2 UNITS Dextrose 50 ml UD IV 05/12/24 10:30 Loperamide HCl 2 mg PRN PRN PO 05/13/24 23:00 05/15/24 05:31 2 MG Saccharomyces Boulardii 250 mg DAILY PO 05/15/24 10:00 Lactated Ringer's 1,000 ml @ 100 mls/hr Q10H IV 05/14/24 10:30 05/14/24 16:57 100 MLS/HR Cefepime HCl 50 ml @ 12.5 mls/hr Q8HR IV 05/14/24 22:00 05/15/24 06:21 12.5 MLS/HR Potassium Chloride 100 ml @ 50 mls/hr Q2H IV 05/15/24 08:15 05/15/24 12:14 UNV objective GEN: NAD ABD: soft. min LUQ TTP. no guarding. laboratory and microbiology Laboratory Tests 05/15/24 05:10 Test 05/15/24 05:10 Range/Units Serum Glucose 117 H 74-106 mg/dL Assessment/Plan A: 1. 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 CT abd/pelvis pending. Dietary Evaluation Review Comments: 1. Continue diet regime 2. Advance diet as tolerated to CCHO 60g 3. F/u GI Expected Outcomes/Goals: 1. Pt will consume >75% of estimated needs within 2-3 days Plan discussed with: Patient RITA RICARDO MD May 15, 2024 08:25
--- NOTE | 2024-05-15 09:05 | DVHPN2 ---
Progress Note - Dictate Date Seen: May 15, 2024 Medical Necessity Reason Pt with a Central, PICC or Fol: No Subjective 63-year-old male diagnosed with gastric adenocarcinoma with surrounding lymph node involvement S/P 1st chemotherapy round Patient seen at bedside he is drinking is p.o. contrast and denies too much abdominal discomfort Upper GI series does show an defect along the fundus related to possible ulceration at the gastric mass fundus area however there was no extravasation of contrast There is concern because of worsening severe leukocytosis and patient is not on steroid vital signs Vital Sign Date Time Temp Pulse Resp B/P (MAP) Pulse Ox O2 Delivery O2 Flow Rate FiO2 05/15/24 08:14 Room Air* 0 21 05/15/24 05:44 88 18 127/68 05/15/24 05:00 98.6 97 98.6 Total Intake and Output 05/14/24 05/14/24 05/15/24 15:00 23:00 07:00 Intake Total 205 ml 1636 ml 850 ml Balance 205 ml 1636 ml 850 ml medications Current Medications Medications Dose Ordered Sig/Polina Route Start Time Stop Time Status Last Admin Dose Admin Benazepril HCl 20 mg DAILY PO 05/11/24 10:00 05/14/24 09:20 20 MG Atorvastatin Calcium 10 mg HS PO 05/10/24 22:00 05/14/24 21:19 10 MG Acetaminophen/ Hydrocodone Bitart 1 tab Q4HP PRN PO 05/10/24 20:00 05/14/24 21:19 1 TAB Ondansetron HCl 4 mg Q4HP PRN IV 05/10/24 20:00 05/13/24 18:20 4 MG Acetaminophen 650 mg Q6HP PRN PO 05/10/24 20:00 Morphine Sulfate 2 mg Q4HPRN PRN IV 05/10/24 20:00 05/15/24 05:14 2 MG Morphine Sulfate 2 mg Q30M PRN IV 05/10/24 23:15 Metronidazole 100 ml @ 100 mls/hr Q8HR IV 05/11/24 14:00 05/15/24 05:13 100 MLS/HR Pantoprazole Sodium 40 mg BID IV 05/11/24 22:00 05/14/24 21:18 40 MG Diagnostic Test (Pha) 1 strip Q6HR 05/12/24 12:00 05/15/24 05:14 1 STRIP Insulin Human Regular FOLLOW SLIDING SCALE Q6HR SC 05/12/24 12:00 05/15/24 05:31 2 UNITS Dextrose 50 ml UD IV 05/12/24 10:30 Loperamide HCl 2 mg PRN PRN PO 05/13/24 23:00 05/15/24 05:31 2 MG Saccharomyces Boulardii 250 mg DAILY PO 05/15/24 10:00 Lactated Ringer's 1,000 ml @ 100 mls/hr Q10H IV 05/14/24 10:30 05/14/24 16:57 100 MLS/HR Cefepime HCl 50 ml @ 12.5 mls/hr Q8HR IV 05/14/24 22:00 05/15/24 06:21 12.5 MLS/HR Potassium Chloride 100 ml @ 50 mls/hr Q2H IV 05/15/24 08:15 05/15/24 12:14 objective General Appearance: Alert, Oriented X3, Cooperative, Mild distress HEENT: Atraumatic, PERRLA, EOMI, Mucous membr. moist/pink Respiratory: Clear to auscultation, Normal air movement Cardiovascular: Regular rate, Normal S1, Normal S2, No murmurs Abdominal: Normal bowel sounds, Soft, No hepatospenomegaly, No masses, Other (Reports tenderness) Extremities: No clubbing, No cyanosis, No edema, Normal pulses, No tenderness/swelling Skin: No rashes, No breakdown, No significant lesion Neuro: Normal speech, Normal tone, Sensation intact, Cranial nerves 3-12 NL, Reflexes 2+, Other (Generalized weakness) Psych/Mental Status: Mental status NL, Mood NL laboratory and microbiology Laboratory Tests 05/15/24 05:10 Test 05/15/24 05:10 Range/Units Serum Glucose 117 H 74-106 mg/dL Problems(with codes): (1) Abnormal finding on GI tract imaging (2) Gastric malignant neoplasm (3) Dark stools (4) Nausea and vomiting (5) Weakness (6) Anemia of chronic disease (7) Diabetes mellitus with hyperglycemia (8) Leukocytosis, unspecified (9) Acute abdominal pain Prognosis Plan A CT scan abdomen pelvis with oral and IV contrast If diarrhea persists check stool for C diff WBC and bacterial culture Oncology consult for evaluation of severe leukocytosis and his gastric adenocarcinoma and to decide about upcoming chemotherapy I will follow up patient with you NPO for now Dietary Evaluation Review Comments: 1. Continue diet regime 2. Advance diet as tolerated to CCHO 60g 3. F/u GI Expected Outcomes/Goals: 1. Pt will consume >75% of estimated needs within 2-3 days Plan discussed with: Patient BYRON NEWSOME MD May 15, 2024 09:05
[2024-05-15] MEDS: FLORASTOR (S. BOULARDII) 250 MG CAP PO SCH (10:10)
[2024-05-15] MEDS: POTASSIUM CHL 20MEQ/100ML 100 ML IV SCH (10:11)
--- NOTE | 2024-05-15 10:34 | DVH ---
Exam: CT CT ABD PELVIS W CON-ORAL IV History: leukocytosis TECHNIQUE: A digital crystal mounter image was obtained. During the uneventful, intravenous administration of c ontrast material, multislice data acquisition was obtained through the abdomen and pelvis. The data s et was subsequently reconstructed into axial images. Images were reviewed on a work station using a c ombination of axial and multiplanar using a variety of window levels and settings. 100 cc of Omnipaqu e 300 contrast was injected intravenously. All CT scans at this medical facility are performed using dose modulation techniques as appropriate t o a performed exam including the following:Automated exposure control was utilized; adjustment of the MA and/or KV according to patient size; and use of iterative reconstruction technique. Radiation Dose Information: CT Dose: CTDI volume is 6.7 mGy. Dose-length product is 391.07 mGy*cm Comparison: CT CT AB PEL WITH IV CON ONLY on DOS: 05/11/24, CT CT AB PEL WO CON-NO ORAL OR IV on DOS: 05/10/24 FINDINGS: There is redemonstration of an approximately 7.2 cm irregular enhancing exophytic mass in the gastric fundus extending into the splenic hilum. Centrally the mass fills with oral contrast and communicate s with the gastric lumen. There is mild fat stranding surrounding the mass. There is diffuse fatty infiltration of the liver. There is a 2.4 cm benign-appearing right renal cyst. There is no evidence of nephrolithiasis or hydr onephrosis. The gallbladder, pancreas, adrenal glands, and spleen appear within normal limits. There are enhancing nodule seen immediately posterior to the body of the stomach measuring 3.8 cm and 3.0 cm. These likely represent metastatic perigastric lymph nodes. There is no obvious retroperitoneal lymphadenopathy.. There is no free fluid or free air. The small and large bowel loops demonstrate normal caliber. The rectum, sigmoid and distal descending colon demonstrate irregular wall thickening and surrounding fat stranding. There are few diverticul a seen. The remainder of the colon appears within normal limits. The abdominal aorta and IVC appear within normal limits. Bladder is decompressed limiting evaluation. Pelvic organs is unremarkable. There is no evidence of a pelvic mass or lymphadenopathy. There is no free fluid collection. Lung bases are clear. There is no acute osseous abnormality. IMPRESSION: 1. Approximately 7.2 cm irregular enhancing exophytic mass in the gastric fundus extending into the s plenic hilum. Centrally the mass fills with oral contrast and communicates with the gastric lumen. Th ere is mild adjacent fat stranding. 2. Enhancing nodule seen immediately posterior to the body of the stomach measuring up to 3.8 cm. The se likely represent perigastric metastatic lymph nodes. 3. There is irregular wall thickening and surrounding fat stranding in the distal colon compatible wi th proctocolitis. Clinical correlation is recommended. HS:Y
--- NOTE | 2024-05-15 10:59 | DVH ---
CHEST RADIOGRAPH Indication: hypoxia Technique: Single frontal view of the chest was obtained Comparison: None FINDINGS: Lines and Tubes: Right chest port cather. Lungs: No focal consolidation. Pleura: No effusion. No pneumothorax. Cardiomediastinal contours: Unremarkable Bones: No acute osseous abnormality. IMPRESSION: No acute cardiopulmonary disease.
[2024-05-15] MEDS: LACTATED RINGER'S 1,000 ML IV ONE (12:15)
[2024-05-15] MEDS: CHOLESTYRAMINE 4 GM POWDER PO ONE (12:24)
[2024-05-15] MEDS: LOPERAMIDE HCL 2 MG CAP/TAB PO SCH (12:24)
[2024-05-15] MEDS: SODIUM PHOSPHATES 24 MEQ in SODIUM CHL 0.9% 100 ML IV ONE (16:02)
[2024-05-15] MEDS ORDERED: VANCOMYCIN HCL 125 MG CAP PO SCH (18:00)
--- NOTE | 2024-05-15 18:01 | DVHPNRES ---
Progress Note Date Seen: May 15, 2024 Resident Creating Document: CRISTOBAL DEAN RESDIENT Medical Necessity Reason Pt with a Central, PICC or Fol: No Subjective Review of Systems Patient is a 63 year old male with a past medical history as described below came to the ED with the chief complaint of abdominal pain since the last 2-3 days before admission. Patient was admitted to the hospital in february 2024 for the complaints of 3 months of having intermittent diarrhea, heartburn and acidity and also about 2 weeks of black stools. Patient underwent a Abdomen/pelvic CT with IV contrast which showed showed 6.3 x 8.2 x 6.3 cm mass at the stomach fundus with multiple perigastic lymph nodes with largest measures 3.9 cm. 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 Patient followed with and was started on chemotherapy with the first session of chemotherapy done on sunday05/07/2024. patient reports following chemotherapy he started feeling abd discomfort and had loose stools. reports passing 4-5 dark stools since the last 2 days. Patient was admitted to the hospital for further workup. Past medical history: Hypertension, type 2 diabetes mellitus, hyperlipidemia Past surgical history: Denies Social history: Patient was a former smoker but has not smoked, drank alcohol no drugs over 1 year. Home medications: atorvastatin, benazapril 20mg daily, glipizide 10mg daily, metformin 500mg bid, protonix 40mg bid Today, 05/14, the patient seen and examined at the bedside. The patient is complaining of watery diarrhea. Patient reports: No new complaints Changes from previous H/P or p: No Changes Objective vital signs Vital Sign Date Time Temp Pulse Resp B/P (MAP) Pulse Ox O2 Delivery O2 Flow Rate FiO2 05/15/24 17:04 98.3 87 16 138/77 (97) 98 98.3 05/15/24 08:14 Room Air* 0 21 Total Intake and Output 05/14/24 05/14/24 05/15/24 15:00 23:00 07:00 Intake Total 205 ml 1636 ml 850 ml Balance 205 ml 1636 ml 850 ml medications Current Medications Medications Dose Ordered Sig/Polina Route Start Time Stop Time Status Last Admin Dose Admin Benazepril HCl 20 mg DAILY PO 05/11/24 10:00 05/14/24 09:20 20 MG Atorvastatin Calcium 10 mg HS PO 05/10/24 22:00 05/14/24 21:19 10 MG Acetaminophen/ Hydrocodone Bitart 1 tab Q4HP PRN PO 05/10/24 20:00 05/14/24 21:19 1 TAB Ondansetron HCl 4 mg Q4HP PRN IV 05/10/24 20:00 05/13/24 18:20 4 MG Acetaminophen 650 mg Q6HP PRN PO 05/10/24 20:00 Morphine Sulfate 2 mg Q4HPRN PRN IV 05/10/24 20:00 05/15/24 05:14 2 MG Morphine Sulfate 2 mg Q30M PRN IV 05/10/24 23:15 Metronidazole 100 ml @ 100 mls/hr Q8HR IV 05/11/24 14:00 05/15/24 16:01 100 MLS/HR Pantoprazole Sodium 40 mg BID IV 05/11/24 22:00 05/15/24 10:10 40 MG Diagnostic Test (Pha) 1 strip Q6HR 05/12/24 12:00 05/15/24 17:39 1 STRIP Insulin Human Regular FOLLOW SLIDING SCALE Q6HR SC 05/12/24 12:00 05/15/24 05:31 2 UNITS Dextrose 50 ml UD IV 05/12/24 10:30 Saccharomyces Boulardii 250 mg DAILY PO 05/15/24 10:00 05/15/24 10:10 250 MG Cefepime HCl 50 ml @ 12.5 mls/hr Q8HR IV 05/14/24 22:00 05/15/24 14:08 12.5 MLS/HR Cholestyramine Resin 4 gm Q12HR@11,23 PO 05/15/24 23:00 Diphenoxylate HCl/ Atropine 2.5 mg HS PO 05/15/24 22:00 Examination General Appearance: Alert, Oriented X3, Cooperative, with mild distress HEENT: Atraumatic, PERRLA, EOMI, Mucous membrane moist/pink Respiratory: Clear to auscultation, Normal air movement Cardiovascular: Regular rate, Normal S1, Normal S2, No murmurs, no chest wall tenderness Abdominal: Mild abdominal tenderness Extremities: No clubbing, No cyanosis, No edema, Normal pulses, No tenderness/swelling Skin: No rashes, No breakdown, No significant lesion Neuro: Normal gait, Normal speech, Strength at 5/5 X4 ext, Normal tone, Sensation intact, Cranial nerves 3-12 NL, Reflexes 2+ Psych/Mental Status: Mental status NL, Mood NL laboratory and microbiology Laboratory Tests 05/15/24 05:10 Test 05/15/24 05:10 Range/Units Serum Glucose 117 H 74-106 mg/dL Microbiology Date/Time Source Procedure Growth Status 05/14/24 10:30 Blood Blood Culture - Preliminary NO GROWTH AFTER 24 HOURS OF INCUBATION. Resulted 05/11/24 14:37 Stool Stool Culture - Preliminary Resulted 05/11/24 14:37 Stool Shiga Toxin I & II - Final Resulted Labs and/or images reviewed: Labs reviewed by me, Image(s) reviewed by me Problem List/Assessment/Plan Problem List/Assessment/Plan This is a 63-year-old male with past medical history of hypertension, diabetes type 2, hyperlipidemia, presented to the hospital with abdominal pain and black stool since 2-3 days. Admitted on 05/10. 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 cD, started chemotherapy on 05/07, since that time has abdominal pain and black diarrhea Upper GI endoscopy, from 03/03, shows 7-8 cm gastric mass in the fundus which was friable polypoid with central ulceration with oozing and with increased bleeding CT scan with IV contrast, shows 7.1 x 5 cm gastric fundus mass corresponding to known adenocarcinoma with evidence of interval contained perforation at the level of the splenic hilum with mild adjacent fat stranding but no free intraperitoneal air or fluid in the abdomen or pelvis. No contrast extravasation is seen, left gastric and perigastric metastatic lymphadenopathy measuring up to 3.9 x 2.7 cm, proctocolitis (infectious or inflammatory C difficile toxin is negative Stool occult blood is positive GI is on the board, recommended IV PPI Upper GI series shows a defect, extending posteriorly along the gastric fundus. This could represent an ulcer. No obvious extravasation of contrast is seen into the peritoneum Surgery recommended, if the patient could tolerate oral intake, DC home in resume chemotherapy Stool culture shows normal enteric abby, with negative shiga toxin [address] scan with contrast on 05/15, shows Approximately 7.2 cm irregular enhancing exophytic mass in the gastric fundus extending into the splenic hilum. Centrally the mass fills with oral contrast and communicates with the gastric lumen. There is mild adjacent fat stranding Repeat stool culture and WBC Repeat C diff toxin check ID is on the board Continue ceftriaxone, started on 05/12 Continue metronidazole, started 05/11 Due to up trending of WBCs at 26.8, and severe diarrhea the patient is now stable to be discharged, Florastor 250 mg daily Discontinue loperamide Oral vancomycin 125 mg p.o. q.i.d. Oral cholestyramine started Peripheral smear Transaminitis AST/ALT raised, downtrending Mild Hyponatremia, monitoring Hypomagnesemia, supplemented Hypokalemia, supplemented [id number] Malnutrition Albumin is 3.1 Amino acid infusion Uncontrolled diabetes mellitus Hb A1c, from 02/27 shows 7.7 Insulin regular, according to mild sliding scale Hypertension Hypertensive heart Disease Continue benazepril 20 mg daily Check vitals q.6 hours Dyslipidemia HDL is 30 Continue atorvastatin 10 mg daily Moderate anemia, microcytic Hypochromic, almost stable Thrombocytopenia Monitoring DIET: Clear liquid DVT prophylax: Due to possible GI bleeding, anticoagulant is not indicated, SCDs GI prophylaxis: Protonix 40 mg IV b.i.d. Bowel regimen: Patient has diarrhea, no indication for laxative Code status: Full code DISPOSITION: Med/surg Due to up trending of WBC at 29, and severe diarrhea the patient is not table at the moment to be discharged, vancomycin orally started Patient's status discussed with with the patient. Case discussed with Dr. Mann Plan discussed with: Patient, Other (RN) My Orders My Orders Orders - CRISTOBAL DEAN RESFRAN Procedure Category Date Status Time Cholestyramine Powder PHA 05/15/24 In Process (Questran Powder) 23:00 Diphenoxylate/Atropine PHA 05/15/24 In Process Tablet (Lomotil T 22:00 Stool Bacterial MARANDA 05/15/24 In Process Culture 12:43 Dietary Evaluation Review Comments: 1. Continue diet regime 2. Advance diet as tolerated to CCHO 60g 3. F/u GI Expected Outcomes/Goals: 1. Pt will consume >75% of estimated needs within 2-3 days Date of Service: May 15, 2024 Billing Provider: JULIETA YOUNG MD Common Visit Codes: [id number] INP/OBS CARE(HIGH) CRISTOBAL DEAN RESDIENT May 15, 2024 18:01 JULIETA YOUNG MD May 19, 2024 11:16
[2024-05-15] MEDS: DIPHENOXYLATE W/ATROPINE 2.5 MG TAB PO SCH (21:55)
[2024-05-15] MEDS: CHOLESTYRAMINE 4 GM POWDER PO SCH (22:41)
[2024-05-16] VITALS (7 sets, daily range): BP systolic 118–159; BP diastolic 65–81; PULSE 71–82; RESP 16–20; TEMP 97.4–98.6; O2SAT 95–98
[2024-05-16 07:03] LABS: Hematocrit 28.9 % (41.0-53.0); Hemoglobin 9.1 g/dL (13.5-17.5); Mean Corpuscular Hemoglobin 25.4 pg (28.0-32.0); Mean Corpuscular Hgb Conc. 31.6 g/dL (32.0-36.0); Mean Corpuscular Volume 80.4 fL (80.0-100.0); Platelet Count (auto) 152 10^3/uL (140-450); Red Cell Distribution Width 16.8 % (11.8-14.3); White Blood Cell 29.8 10^3/uL (4.4-10.8)
[2024-05-16 07:07] LABS: Alanine Aminotransferase 28 U/L (7-40); Anion Gap 6 (5-15); BUN/Creatinine Ratio 9.8 (10.0-20.0); Carbon Dioxide 27 mmol/L (20-31); Chloride 104 mmol/L (98-107); Magnesium 1.9 mg/dL (1.6-2.6); Potassium 3.5 mmol/L (3.5-5.1); Sodium 137 mmol/L (136-145)
[2024-05-16 07:08] LABS: Bilirubin, Total 0.4 mg/dL (0.2-1.0); Phosphorus 3.7 mg/dL (2.4-5.1)
[2024-05-16 07:09] LABS: Basophils % (manual) 0 (0.0-2.0); Blast Cells 0; Eosinophils % (manual) 0 (0-7); Metamyelocytes % 0; Myelocytes % 0; Promyelocytes % 0; Reactive Lymphocytes 0
[2024-05-16 07:18] LABS: Alkaline Phosphatase 153 U/L (46-116); Aspartate Aminotransferase 80 U/L (13-40); Blood Urea Nitrogen 6 mg/dL (9-23); Calcium 7.9 mg/dL (8.7-10.4); Glucose 64 mg/dL (74-106); Total Protein 4.7 g/dL (5.7-8.2)
[2024-05-16 07:19] LABS: Albumin 2.4 g/dL (3.2-4.8)
[2024-05-16 07:51] LABS: Band Neutrophils % (manual) 13; Lymphocytes % (manual) 18 (10.0-50.0); Monocytes % (manual) 8 (0-12)
[2024-05-16 07:52] LABS: Anisocytosis Slight; Ovalocytes FEW; Platelet Estimate Adequate
[2024-05-16] MEDS: metroNIDAZOLE 500MG/100ML 100 ML IV ONE (11:53)
[2024-05-16] MEDS: MEROPENEM 1GM IVPB 50 ML IV ONE (13:26)
--- NOTE | 2024-05-16 16:20 | DVHPN2 ---
Progress Note - Dictate Date Seen: May 16, 2024 Medical Necessity Reason Pt with a Central, PICC or Fol: No Subjective 63-year-old male diagnosed with gastric adenocarcinoma with surrounding lymph node involvement S/P 1st chemotherapy round Patient seen at bedside I ease feeling better, no nausea vomiting or abdominal pain and his diarrhea has also improved Patient has a large exophytic gastric adenocarcinoma that is eroding into the splenic hilum. There appears to be a tract within the gastric tumor where contrast is fistulizing in but there does not appear to be any extravasation There is perigastric inflammatory changes. There was also perigastric lymph node involvement. Patient had mild proctocolitis However his stool tests are negative for C diff and bacterial culture and there are only rare WBC Patient has shown clinical response to oral vancomycin and probiotics He still has persistent leukocytosis at this time vital signs Vital Sign Date Time Temp Pulse Resp B/P (MAP) Pulse Ox O2 Delivery O2 Flow Rate FiO2 05/16/24 13:00 97.9 82 20 118/72 (87) 98 97.9 05/16/24 08:09 Room Air* 0 21 Total Intake and Output 05/15/24 05/15/24 05/16/24 15:00 23:00 07:00 Intake Total 0 ml 280 ml 150 ml Output Total 800 ml Balance 0 ml -520 ml 150 ml medications Current Medications Medications Dose Ordered Sig/Polina Route Start Time Stop Time Status Last Admin Dose Admin Benazepril HCl 20 mg DAILY PO 05/11/24 10:00 05/16/24 09:32 20 MG Atorvastatin Calcium 10 mg HS PO 05/10/24 22:00 05/15/24 21:55 10 MG Acetaminophen/ Hydrocodone Bitart 1 tab Q4HP PRN PO 05/10/24 20:00 05/16/24 09:33 1 TAB Ondansetron HCl 4 mg Q4HP PRN IV 05/10/24 20:00 05/13/24 18:20 4 MG Acetaminophen 650 mg Q6HP PRN PO 05/10/24 20:00 Morphine Sulfate 2 mg Q4HPRN PRN IV 05/10/24 20:00 05/16/24 05:35 2 MG Morphine Sulfate 2 mg Q30M PRN IV 05/10/24 23:15 Pantoprazole Sodium 40 mg BID IV 05/11/24 22:00 05/16/24 09:32 40 MG Diagnostic Test (Pha) 1 strip Q6HR 05/12/24 12:00 05/16/24 12:19 1 STRIP Insulin Human Regular FOLLOW SLIDING SCALE Q6HR SC 05/12/24 12:00 05/16/24 12:20 2 UNITS Dextrose 50 ml UD IV 05/12/24 10:30 Saccharomyces Boulardii 250 mg DAILY PO 05/15/24 10:00 05/16/24 09:32 250 MG Cholestyramine Resin 4 gm Q12HR@11,23 PO 05/15/24 23:00 05/16/24 11:51 4 GM Diphenoxylate HCl/ Atropine 2.5 mg HS PO 05/15/24 22:00 05/15/24 21:55 2.5 MG Vancomycin HCl 125 mg QID PO 05/15/24 18:00 Hold Meropenem 50 ml @ 17 mls/hr Q8HR IV 05/17/24 06:00 Metronidazole 100 ml @ 100 mls/hr Q8HR IV 05/17/24 06:00 objective General Appearance: Alert, Oriented X3, Cooperative, No distress HEENT: Atraumatic, PERRLA, EOMI, Mucous membr. moist/pink Respiratory: Clear to auscultation, Normal air movement Cardiovascular: Regular rate, Normal S1, Normal S2, No murmurs Abdominal: Normal bowel sounds, Soft, No hepatospenomegaly, No masses, Other (Reports tenderness) Extremities: No clubbing, No cyanosis, No edema, Normal pulses, No tenderness/swelling Skin: No rashes, No breakdown, No significant lesion Neuro: Normal speech, Normal tone, Sensation intact, Cranial nerves 3-12 NL, Reflexes 2+, Other (Generalized weakness) Psych/Mental Status: Mental status NL, Mood NL laboratory and microbiology Laboratory Tests 05/16/24 05:36 Test 05/16/24 05:36 Range/Units Serum Glucose 64 L 74-106 mg/dL Problems(with codes): (1) Abnormal finding on GI tract imaging (2) Gastric malignant neoplasm (3) Dark stools (4) Nausea and vomiting (5) Weakness (6) Anemia of chronic disease Prognosis Plan Patient is currently on clear liquids and IV Clinimix If the leukocytosis starts improve then we can slowly advance him to a full liquid diet Overall his prognosis is guarded because of a large gastric fundic adenocarcinoma which has been causing recurrent bleeding and also shows a necrotizing tract within the carcinoma Patient is to follow up with Dr. Dc as an outpatient to decide if any further chemotherapy is going to be given or radiation therapy Oncologist also to consider possible referral to higher level of care for subtotal gastrectomy if his symptoms persist and patient can not tolerate conservative treatment Dietary Evaluation Review Comments: 1. Continue diet regime 2. Advance diet as tolerated to CCHO 60g 3. F/u GI Expected Outcomes/Goals: 1. Pt will consume >75% of estimated needs within 2-3 days Plan discussed with: Patient BYRON NEWSOME MD May 16, 2024 16:20
--- NOTE | 2024-05-16 18:16 | DVHPNRES ---
Progress Note Date Seen: May 16, 2024 Resident Creating Document: CRISTOBAL DEAN RESDIENT Medical Necessity Reason Pt with a Central, PICC or Fol: No Subjective Review of Systems Patient is a 63 year old male with a past medical history as described below came to the ED with the chief complaint of abdominal pain since the last 2-3 days before admission. Patient was admitted to the hospital in february 2024 for the complaints of 3 months of having intermittent diarrhea, heartburn and acidity and also about 2 weeks of black stools. Patient underwent a Abdomen/pelvic CT with IV contrast which showed showed 6.3 x 8.2 x 6.3 cm mass at the stomach fundus with multiple perigastic lymph nodes with largest measures 3.9 cm. 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 Patient followed with and was started on chemotherapy with the first session of chemotherapy done on sunday05/07/2024. patient reports following chemotherapy he started feeling abd discomfort and had loose stools. reports passing 4-5 dark stools since the last 2 days. Patient was admitted to the hospital for further workup. Past medical history: Hypertension, type 2 diabetes mellitus, hyperlipidemia Past surgical history: Denies Social history: Patient was a former smoker but has not smoked, drank alcohol no drugs over 1 year. Home medications: atorvastatin, benazapril 20mg daily, glipizide 10mg daily, metformin 500mg bid, protonix 40mg bid Today, 05/14, the patient seen and examined at the bedside. The patient is complaining of watery diarrhea. Patient reports: No new complaints Objective vital signs Vital Sign Date Time Temp Pulse Resp B/P (MAP) Pulse Ox O2 Delivery O2 Flow Rate FiO2 05/16/24 17:00 97.4 72 18 123/67 (85) 98 97.4 05/16/24 08:09 Room Air* 0 21 Total Intake and Output 05/15/24 05/15/24 05/16/24 15:00 23:00 07:00 Intake Total 0 ml 280 ml 150 ml Output Total 800 ml Balance 0 ml -520 ml 150 ml medications Current Medications Medications Dose Ordered Sig/Polina Route Start Time Stop Time Status Last Admin Dose Admin Benazepril HCl 20 mg DAILY PO 05/11/24 10:00 05/16/24 09:32 20 MG Atorvastatin Calcium 10 mg HS PO 05/10/24 22:00 05/15/24 21:55 10 MG Acetaminophen/ Hydrocodone Bitart 1 tab Q4HP PRN PO 05/10/24 20:00 05/16/24 09:33 1 TAB Ondansetron HCl 4 mg Q4HP PRN IV 05/10/24 20:00 05/13/24 18:20 4 MG Acetaminophen 650 mg Q6HP PRN PO 05/10/24 20:00 Morphine Sulfate 2 mg Q4HPRN PRN IV 05/10/24 20:00 05/16/24 05:35 2 MG Morphine Sulfate 2 mg Q30M PRN IV 05/10/24 23:15 Pantoprazole Sodium 40 mg BID IV 05/11/24 22:00 05/16/24 09:32 40 MG Diagnostic Test (Pha) 1 strip Q6HR 05/12/24 12:00 05/16/24 17:40 1 STRIP Insulin Human Regular FOLLOW SLIDING SCALE Q6HR SC 05/12/24 12:00 05/16/24 12:20 2 UNITS Dextrose 50 ml UD IV 05/12/24 10:30 Saccharomyces Boulardii 250 mg DAILY PO 05/15/24 10:00 05/16/24 09:32 250 MG Cholestyramine Resin 4 gm Q12HR@11,23 PO 05/15/24 23:00 05/16/24 11:51 4 GM Diphenoxylate HCl/ Atropine 2.5 mg HS PO 05/15/24 22:00 05/15/24 21:55 2.5 MG Meropenem 50 ml @ 17 mls/hr Q8HR IV 05/17/24 06:00 Metronidazole 100 ml @ 100 mls/hr Q8HR IV 05/17/24 06:00 Examination General Appearance: Alert, Oriented X3, Cooperative, with mild distress HEENT: Atraumatic, PERRLA, EOMI, Mucous membrane moist/pink Respiratory: Clear to auscultation, Normal air movement Cardiovascular: Regular rate, Normal S1, Normal S2, No murmurs, no chest wall tenderness Abdominal: Mild abdominal tenderness Extremities: No clubbing, No cyanosis, No edema, Normal pulses, No tenderness/swelling Skin: No rashes, No breakdown, No significant lesion Neuro: Normal gait, Normal speech, Strength at 5/5 X4 ext, Normal tone, Sensation intact, Cranial nerves 3-12 NL, Reflexes 2+ Psych/Mental Status: Mental status NL, Mood NL laboratory and microbiology Laboratory Tests 05/16/24 05:36 Test 05/16/24 05:36 Range/Units Serum Glucose 64 L 74-106 mg/dL Microbiology Date/Time Source Procedure Growth Status 05/15/24 12:30 Stool Stool Culture - Preliminary Resulted 05/15/24 12:30 Stool Shiga Toxin I & II - Final Resulted 05/14/24 10:30 Blood Blood Culture - Preliminary NO GROWTH AFTER 48 HOURS OF INCUBATION. Resulted Labs and/or images reviewed: Labs reviewed by me, Image(s) reviewed by me Problem List/Assessment/Plan Problem List/Assessment/Plan This is a 63-year-old male with past medical history of hypertension, diabetes type 2, hyperlipidemia, presented to the hospital with abdominal pain and black stool since 2-3 days. Admitted on 05/10. 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 Dc, started chemotherapy on 05/07, since that time has abdominal pain and black diarrhea Upper GI endoscopy, from 03/03, shows 7-8 cm gastric mass in the fundus which was friable polypoid with central ulceration with oozing and with increased bleeding CT scan with IV contrast, shows 7.1 x 5 cm gastric fundus mass corresponding to known adenocarcinoma with evidence of interval contained perforation at the level of the splenic hilum with mild adjacent fat stranding but no free intraperitoneal air or fluid in the abdomen or pelvis. No contrast extravasation is seen, left gastric and perigastric metastatic lymphadenopathy measuring up to 3.9 x 2.7 cm, proctocolitis (infectious or inflammatory C difficile toxin is negative Stool occult blood is positive GI is on the board, recommended IV PPI Upper GI series shows a defect, extending posteriorly along the gastric fundus. This could represent an ulcer. No obvious extravasation of contrast is seen into the peritoneum Surgery recommended, if the patient could tolerate oral intake, DC home in resume chemotherapy Stool culture shows normal enteric abby, with negative shiga toxin [address] scan with contrast on 05/15, shows Approximately 7.2 cm irregular enhancing exophytic mass in the gastric fundus extending into the splenic hilum. Centrally the mass fills with oral contrast and communicates with the gastric lumen. There is mild adjacent fat stranding Repeat stool culture and WBC Repeat C diff toxin check ID is on the board Continue ceftriaxone, started on 05/12 Continue metronidazole, started 05/11 Due to up trending of WBCs at 26.8, and severe diarrhea the patient is now stable to be discharged, Florastor 250 mg daily Discontinue loperamide Discontinue Oral vancomycin 125 mg p.o. q.i.d. Oral cholestyramine started Peripheral smear Consulted back the oncology Transaminitis AST/ALT raised, downtrending Mild Hyponatremia, monitoring Hypomagnesemia, supplemented Hypokalemia, supplemented [id number] Malnutrition Albumin is 3.1 Amino acid infusion Uncontrolled diabetes mellitus Hb A1c, from 02/27 shows 7.7 Insulin regular, according to mild sliding scale Hypertension Hypertensive heart Disease Continue benazepril 20 mg daily Check vitals q.6 hours Dyslipidemia HDL is 30 Continue atorvastatin 10 mg daily Moderate anemia, microcytic Hypochromic, almost stable Thrombocytopenia Monitoring DIET: Clear liquid DVT prophylax: Due to possible GI bleeding, anticoagulant is not indicated, SCDs GI prophylaxis: Protonix 40 mg IV b.i.d. Bowel regimen: Patient has diarrhea, no indication for laxative Code status: Full code DISPOSITION: Med/surg Due high WBC at 29.8, and still having severe diarrhea the patient is not stable at the moment to be discharged, discontinued vancomycin orally Patient's status discussed with with the patient. Case discussed with Dr. Mann Plan discussed with: Patient, Other (RN) My Orders My Orders Orders - CRISTOBAL DEAN RESDIENT Procedure Category Date Status Time Clear Liq Diet DIET 05/15/24 Transmitted Dinner Dietary Evaluation Review Comments: 1. Continue diet regime 2. Advance diet as tolerated to CCHO 60g 3. F/u GI Expected Outcomes/Goals: 1. Pt will consume >75% of estimated needs within 2-3 days Date of Service: May 16, 2024 Billing Provider: JULIETA YOUNG MD Common Visit Codes: [id number] INP/OBS CARE(HIGH) HEWADMAL,HEWAD RESDIENT May 16, 2024 18:15 JULIETA YOUNG MD May 19, 2024 11:34
[2024-05-17] VITALS (7 sets, daily range): BP systolic 138–150; BP diastolic 62–76; PULSE 70–77; RESP 16–18; TEMP 97.5–98.2; O2SAT 96–99
[2024-05-17] MEDS: metroNIDAZOLE 500MG/100ML 100 ML IV SCH (05:36)
[2024-05-17] MEDS: MEROPENEM 1GM IVPB 50 ML IV SCH (05:50)
[2024-05-17 06:36] LABS: Basophils # (auto) 0.1 10 ^3/uL (0-0.2); Eosinophils # (auto) 0.1 10 ^3/uL (0-0.8)
[2024-05-17 06:38] LABS: Basophils % (auto) 0.3 % (0.0-2.0); Eosinophils % (auto) 0.4 % (0.0-7.0); Hematocrit 29.2 % (41.0-53.0); Hemoglobin 9.2 g/dL (13.5-17.5); Lymphocytes # (auto) 1.8 10 ^3/uL (0.4-5.4); Lymphocytes % (auto) 6.9 % (10.0-50.0); Mean Corpuscular Hemoglobin 24.7 pg (28.0-32.0); Mean Corpuscular Hgb Conc. 31.6 g/dL (32.0-36.0); Mean Corpuscular Volume 78.2 fL (80.0-100.0); Monocytes # (auto) 1.8 10 ^3/uL (0-1.3); Monocytes % (auto) 7.1 % (0.0-12.0); Neutrophils # (auto) 21.7 10 ^3/uL (1.6-8.6); Neutrophils % (auto) 85.3 % (37.0-80.0); Nucleated Red Blood Cells % 0.3 %; Platelet Count (auto) 137 10^3/uL (140-450); Red Blood Cells 3.74 10^6/uL (4.5-5.90); Red Cell Distribution Width 16.9 % (11.8-14.3); White Blood Cell 25.4 10^3/uL (4.4-10.8)
[2024-05-17 07:30] LABS: Alanine Aminotransferase 25 U/L (7-40); Anion Gap 7 (5-15); Bilirubin, Total 0.4 mg/dL (0.2-1.0); Carbon Dioxide 28 mmol/L (20-31); Chloride 103 mmol/L (98-107); Glucose 80 mg/dL (74-106); Sodium 138 mmol/L (136-145)
[2024-05-17 07:35] LABS: Albumin 2.7 g/dL (3.2-4.8); Alkaline Phosphatase 170 U/L (46-116); Aspartate Aminotransferase 56 U/L (13-40); BUN/Creatinine Ratio 9.3 (10.0-20.0); Blood Urea Nitrogen < 5 mg/dL (9-23); Calcium 7.6 mg/dL (8.7-10.4); Potassium 3.1 mmol/L (3.5-5.1); Total Protein 5.1 g/dL (5.7-8.2)
--- NOTE | 2024-05-17 09:51 | DVHPN2 ---
Progress Note Date Seen: May 17, 2024 Medical Necessity Reason Pt with a Central, PICC or Fol: No Objective vital signs Vital Sign Date Time Temp Pulse Resp B/P (MAP) Pulse Ox O2 Delivery O2 Flow Rate FiO2 05/17/24 08:56 97.9 75 18 150/70 (96) 97 97.9 05/17/24 08:00 Room Air* 0 21 Total Intake and Output 05/16/24 05/16/24 05/17/24 15:00 23:00 07:00 Intake Total 200 ml 500 ml Output Total 700 ml Balance -500 ml 500 ml medications Current Medications Medications Dose Ordered Sig/Polina Route Start Time Stop Time Status Last Admin Dose Admin Benazepril HCl 20 mg DAILY PO 05/11/24 10:00 05/16/24 09:32 20 MG Atorvastatin Calcium 10 mg HS PO 05/10/24 22:00 05/16/24 21:10 10 MG Acetaminophen/ Hydrocodone Bitart 1 tab Q4HP PRN PO 05/10/24 20:00 05/17/24 09:05 1 TAB Ondansetron HCl 4 mg Q4HP PRN IV 05/10/24 20:00 05/13/24 18:20 4 MG Acetaminophen 650 mg Q6HP PRN PO 05/10/24 20:00 Morphine Sulfate 2 mg Q4HPRN PRN IV 05/10/24 20:00 05/16/24 21:11 2 MG Morphine Sulfate 2 mg Q30M PRN IV 05/10/24 23:15 Pantoprazole Sodium 40 mg BID IV 05/11/24 22:00 05/16/24 21:10 40 MG Diagnostic Test (Pha) 1 strip Q6HR 05/12/24 12:00 05/17/24 05:50 1 STRIP Insulin Human Regular FOLLOW SLIDING SCALE Q6HR SC 05/12/24 12:00 05/16/24 23:07 2 UNITS Dextrose 50 ml UD IV 05/12/24 10:30 Saccharomyces Boulardii 250 mg DAILY PO 05/15/24 10:00 05/16/24 09:32 250 MG Cholestyramine Resin 4 gm Q12HR@11,23 PO 05/15/24 23:00 05/16/24 23:00 4 GM Diphenoxylate HCl/ Atropine 2.5 mg HS PO 05/15/24 22:00 05/16/24 21:10 2.5 MG Meropenem 50 ml @ 17 mls/hr Q8HR IV 05/17/24 06:00 05/17/24 05:50 17 MLS/HR Metronidazole 100 ml @ 100 mls/hr Q8HR IV 05/17/24 06:00 05/17/24 05:36 100 MLS/HR laboratory and microbiology Laboratory Tests 05/17/24 05:25 Test 05/17/24 05:25 Range/Units Serum Glucose 80 74-106 mg/dL Problem List/Assessment/Plan Problem List/Assessment/Plan 05/17/24 f/u for : patient on chemotherapy for gastric malignancy, abdomen non distended, non tender, will sign off, please recall if needed Plan discussed with: Patient Dietary Evaluation Review Comments: 1. Continue diet regime 2. Advance diet as tolerated to CCHO 60g 3. F/u GI Expected Outcomes/Goals: 1. Pt will consume >75% of estimated needs within 2-3 days VIPIN LUZ MD May 17, 2024 09:51
[2024-05-17] MEDS: POTASSIUM EFFERVESENT TAB 25 MEQ GT ONE (10:50)
--- NOTE | 2024-05-17 12:18 | DVHPNRES ---
Progress Note Date Seen: May 17, 2024 Resident Creating Document: CRISTOBAL DEAN RESDIENT Medical Necessity Reason Pt with a Central, PICC or Fol: No Subjective Review of Systems Patient is a 63 year old male with a past medical history as described below came to the ED with the chief complaint of abdominal pain since the last 2-3 days before admission. Patient was admitted to the hospital in february 2024 for the complaints of 3 months of having intermittent diarrhea, heartburn and acidity and also about 2 weeks of black stools. Patient underwent a Abdomen/pelvic CT with IV contrast which showed showed 6.3 x 8.2 x 6.3 cm mass at the stomach fundus with multiple perigastic lymph nodes with largest measures 3.9 cm. 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 Patient followed with and was started on chemotherapy with the first session of chemotherapy done on sunday05/07/2024. patient reports following chemotherapy he started feeling abd discomfort and had loose stools. reports passing 4-5 dark stools since the last 2 days. Patient was admitted to the hospital for further workup. Past medical history: Hypertension, type 2 diabetes mellitus, hyperlipidemia Past surgical history: Denies Social history: Patient was a former smoker but has not smoked, drank alcohol no drugs over 1 year. Home medications: atorvastatin, benazapril 20mg daily, glipizide 10mg daily, metformin 500mg bid, protonix 40mg bid Today, the patient seen and examined at the bedside. The patient is complaining of watery diarrhea. Patient reports: No new complaints Changes from previous H/P or p: No Changes Objective vital signs Vital Sign Date Time Temp Pulse Resp B/P (MAP) Pulse Ox O2 Delivery O2 Flow Rate FiO2 05/17/24 10:04 150/70 05/17/24 08:56 97.9 75 18 97 97.9 05/17/24 08:00 Room Air* 0 21 Total Intake and Output 05/16/24 05/16/24 05/17/24 15:00 23:00 07:00 Intake Total 200 ml 500 ml Output Total 700 ml Balance -500 ml 500 ml medications Current Medications Medications Dose Ordered Sig/Polina Route Start Time Stop Time Status Last Admin Dose Admin Benazepril HCl 20 mg DAILY PO 05/11/24 10:00 05/17/24 10:04 20 MG Atorvastatin Calcium 10 mg HS PO 05/10/24 22:00 05/16/24 21:10 10 MG Acetaminophen/ Hydrocodone Bitart 1 tab Q4HP PRN PO 05/10/24 20:00 05/17/24 09:05 1 TAB Ondansetron HCl 4 mg Q4HP PRN IV 05/10/24 20:00 05/13/24 18:20 4 MG Acetaminophen 650 mg Q6HP PRN PO 05/10/24 20:00 Morphine Sulfate 2 mg Q4HPRN PRN IV 05/10/24 20:00 05/16/24 21:11 2 MG Morphine Sulfate 2 mg Q30M PRN IV 05/10/24 23:15 Pantoprazole Sodium 40 mg BID IV 05/11/24 22:00 05/17/24 10:03 40 MG Diagnostic Test (Pha) 1 strip Q6HR 05/12/24 12:00 05/17/24 11:44 1 STRIP Insulin Human Regular FOLLOW SLIDING SCALE Q6HR SC 05/12/24 12:00 05/17/24 11:45 4 UNITS Dextrose 50 ml UD IV 05/12/24 10:30 Saccharomyces Boulardii 250 mg DAILY PO 05/15/24 10:00 05/17/24 10:03 250 MG Cholestyramine Resin 4 gm Q12HR@11,23 PO 05/15/24 23:00 05/17/24 10:50 4 GM Diphenoxylate HCl/ Atropine 2.5 mg HS PO 05/15/24 22:00 05/16/24 21:10 2.5 MG Meropenem 50 ml @ 17 mls/hr Q8HR IV 05/17/24 06:00 05/17/24 05:50 17 MLS/HR Metronidazole 100 ml @ 100 mls/hr Q8HR IV 05/17/24 06:00 05/17/24 05:36 100 MLS/HR Examination General Appearance: Alert, Oriented X3, Cooperative, with mild distress HEENT: Atraumatic, PERRLA, EOMI, Mucous membrane moist/pink Respiratory: Clear to auscultation, Normal air movement Cardiovascular: Regular rate, Normal S1, Normal S2, No murmurs, no chest wall tenderness Abdominal: Mild abdominal tenderness Extremities: No clubbing, No cyanosis, No edema, Normal pulses, No tenderness/swelling Skin: No rashes, No breakdown, No significant lesion Neuro: Normal gait, Normal speech, Strength at 5/5 X4 ext, Normal tone, Sensation intact, Cranial nerves 3-12 NL, Reflexes 2+ Psych/Mental Status: Mental status NL, Mood NL laboratory and microbiology Laboratory Tests 05/17/24 05:25 Test 05/17/24 05:25 Range/Units Serum Glucose 80 74-106 mg/dL Microbiology Date/Time Source Procedure Growth Status 05/15/24 12:30 Stool Stool Culture - Preliminary Resulted 05/15/24 12:30 Stool Shiga Toxin I & II - Final Resulted 05/14/24 10:30 Blood Blood Culture - Preliminary NO GROWTH AFTER 72 HOURS OF INCUBATION. Resulted Labs and/or images reviewed: Labs reviewed by me, Image(s) reviewed by me Problem List/Assessment/Plan Problem List/Assessment/Plan This is a 63-year-old male with past medical history of hypertension, diabetes type 2, hyperlipidemia, presented to the hospital with abdominal pain and black stool since 2-3 days. Admitted on 05/10. 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 Dc, started chemotherapy on 05/07, since that time has abdominal pain and black diarrhea Upper GI endoscopy, from 03/03, shows 7-8 cm gastric mass in the fundus which was friable polypoid with central ulceration with oozing and with increased bleeding CT scan with IV contrast, shows 7.1 x 5 cm gastric fundus mass corresponding to known adenocarcinoma with evidence of interval contained perforation at the level of the splenic hilum with mild adjacent fat stranding but no free intraperitoneal air or fluid in the abdomen or pelvis. No contrast extravasation is seen, left gastric and perigastric metastatic lymphadenopathy measuring up to 3.9 x 2.7 cm, proctocolitis (infectious or inflammatory C difficile toxin is negative Stool occult blood is positive GI is on the board, recommended IV PPI Upper GI series shows a defect, extending posteriorly along the gastric fundus. This could represent an ulcer. No obvious extravasation of contrast is seen into the peritoneum Surgery recommended, if the patient could tolerate oral intake, DC home in resume chemotherapy, and signed off Stool culture shows normal enteric abby, with negative shiga toxin [address] scan with contrast on 05/15, shows Approximately 7.2 cm irregular enhancing exophytic mass in the gastric fundus extending into the splenic hilum. Centrally the mass fills with oral contrast and communicates with the gastric lumen. There is mild adjacent fat stranding Repeat stool culture and WBC Repeat C diff toxin check ID is on the board Continue ceftriaxone, started on 05/12 Continue metronidazole, started 05/11 Due to up trending of WBCs at 26.8, and severe diarrhea the patient is now stable to be discharged, Florastor 250 mg daily Continue loperamide Oral cholestyramine started Peripheral smear Consulted back the oncology Transaminitis AST/ALT raised, downtrending Mild Hyponatremia, monitoring Hypomagnesemia, supplemented Hypokalemia, supplemented [id number] Malnutrition Albumin is 3.1 Amino acid infusion Uncontrolled diabetes mellitus Hb A1c, from 02/27 shows 7.7 Insulin regular, according to mild sliding scale Hypertension Hypertensive heart Disease Continue benazepril 20 mg daily Check vitals q.6 hours Dyslipidemia HDL is 30 Continue atorvastatin 10 mg daily Moderate anemia, microcytic Hypochromic, almost stable Thrombocytopenia Monitoring DIET: Full liquids DVT prophylax: Due to possible GI bleeding, anticoagulant is not indicated, SCDs GI prophylaxis: Protonix 40 mg IV b.i.d. Bowel regimen: Patient has diarrhea, no indication for laxative Code status: Full code DISPOSITION: Med/surg Due high WBC at 25, and still having severe diarrhea the patient is not stable at the moment to be discharged, discontinued vancomycin orally Patient's status discussed with with the patient. Case discussed with Dr. Gomez Plan discussed with: Patient, Spouse, Son, Other (RN) Dietary Evaluation Review Comments: 1. Continue diet regime 2. Advance diet as tolerated to CCHO 60g 3. F/u GI Expected Outcomes/Goals: 1. Pt will consume >75% of estimated needs within 2-3 days Date of Service: May 17, 2024 Billing Provider: KRYSTA GOMEZ MD Common Visit Codes: [id number] INP/OBS CARE(HIGH) HEWADMALCRISTOBAL May 17, 2024 12:18 KRYSTA GOMEZ MD May 17, 2024 21:46
--- NOTE | 2024-05-17 18:33 | DVHPN2 ---
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 His stool for C diff was negative when someone has discontinued the oral vancomycin. Patient is on IV Flagyl Patient has a large exophytic gastric adenocarcinoma that is eroding into the splenic hilum. There appears to be a tract within the gastric tumor where contrast is fistulizing in but there does not appear to be any extravasationThere is perigastric inflammatory changes. There was also perigastric lymph node involvement. Patient had mild proctocolitis. Leukocytosis has started trending downwards today vital signs Vital Sign Date Time Temp Pulse Resp B/P (MAP) Pulse Ox O2 Delivery O2 Flow Rate FiO2 05/17/24 17:22 98.1 74 16 138/74 (95) 97 98.1 05/17/24 08:00 Room Air* 0 21 Total Intake and Output 05/16/24 05/16/24 05/17/24 15:00 23:00 07:00 Intake Total 200 ml 500 ml Output Total 700 ml Balance -500 ml 500 ml medications Current Medications Medications Dose Ordered Sig/Polina Route Start Time Stop Time Status Last Admin Dose Admin Benazepril HCl 20 mg DAILY PO 05/11/24 10:00 05/17/24 10:04 20 MG Atorvastatin Calcium 10 mg HS PO 05/10/24 22:00 05/16/24 21:10 10 MG Acetaminophen/ Hydrocodone Bitart 1 tab Q4HP PRN PO 05/10/24 20:00 05/17/24 15:39 1 TAB Ondansetron HCl 4 mg Q4HP PRN IV 05/10/24 20:00 05/13/24 18:20 4 MG Acetaminophen 650 mg Q6HP PRN PO 05/10/24 20:00 Morphine Sulfate 2 mg Q4HPRN PRN IV 05/10/24 20:00 05/16/24 21:11 2 MG Morphine Sulfate 2 mg Q30M PRN IV 05/10/24 23:15 Pantoprazole Sodium 40 mg BID IV 05/11/24 22:00 05/17/24 10:03 40 MG Diagnostic Test (Pha) 1 strip Q6HR 05/12/24 12:00 05/17/24 17:39 1 STRIP Insulin Human Regular FOLLOW SLIDING SCALE Q6HR SC 05/12/24 12:00 05/17/24 17:39 2 UNITS Dextrose 50 ml UD IV 05/12/24 10:30 Saccharomyces Boulardii 250 mg DAILY PO 05/15/24 10:00 05/17/24 10:03 250 MG Cholestyramine Resin 4 gm Q12HR@11,23 PO 05/15/24 23:00 05/17/24 10:50 4 GM Diphenoxylate HCl/ Atropine 2.5 mg HS PO 05/15/24 22:00 05/16/24 21:10 2.5 MG Meropenem 50 ml @ 17 mls/hr Q8HR IV 05/17/24 06:00 05/17/24 13:59 17 MLS/HR Metronidazole 100 ml @ 100 mls/hr Q8HR IV 05/17/24 06:00 05/17/24 14:54 100 MLS/HR Loperamide HCl 2 mg PRN PRN PO 05/17/24 12:00 objective General Appearance: Alert, Oriented X3, Cooperative, No distress HEENT: Atraumatic, PERRLA, EOMI, Mucous membr. moist/pink Respiratory: Clear to auscultation, Normal air movement Cardiovascular: Regular rate, Normal S1, Normal S2, No murmurs Abdominal: Normal bowel sounds, Soft, No hepatospenomegaly, No masses, Other (Reports tenderness) Extremities: No clubbing, No cyanosis, No edema, Normal pulses, No tenderness/swelling Skin: No rashes, No breakdown, No significant lesion Neuro: Normal speech, Normal tone, Sensation intact, Cranial nerves 3-12 NL, Reflexes 2+, Other (Generalized weakness) Psych/Mental Status: Mental status NL, Mood NL laboratory and microbiology Laboratory Tests 05/17/24 05:25 Test 05/17/24 05:25 Range/Units Serum Glucose 80 74-106 mg/dL Problems(with codes): (1) Abnormal finding on GI tract imaging (2) Gastric malignant neoplasm (3) Dark stools (4) Nausea and vomiting (5) Weakness (6) Anemia of chronic disease (7) Diabetes mellitus with hyperglycemia (8) Leukocytosis, unspecified Prognosis Plan We will try to advance to full liquid diet Check repeat CBC tomorrow to check his white count The patient shows signs of clinical improvement then discharge planning for next week Patient will follow up with his oncologist next week to arrange further cycles of his chemotherapy Patient was advised by Dr. Dc that he is going to need ongoing chemotherapy for now Dietary Evaluation Review Comments: 1. Continue diet regime 2. Advance diet as tolerated to CCHO 60g 3. F/u GI Expected Outcomes/Goals: 1. Pt will consume >75% of estimated needs within 2-3 days Plan discussed with: Patient, Son, Other (Dr Tello) BYRON NEWSOME MD May 17, 2024 18:33
[2024-05-18] VITALS (8 sets, daily range): BP systolic 104–162; BP diastolic 67–88; PULSE 66–81; RESP 16–20; TEMP 97.4–98.5; O2SAT 96–99
[2024-05-18 07:32] LABS: Hemoglobin 9.2 g/dL (13.5-17.5); Red Cell Distribution Width 17.4 % (11.8-14.3)
[2024-05-18 07:35] LABS: Hematocrit 28.3 % (41.0-53.0); Mean Corpuscular Hemoglobin 25.3 pg (28.0-32.0); Mean Corpuscular Hgb Conc. 32.3 g/dL (32.0-36.0); Mean Corpuscular Volume 78.1 fL (80.0-100.0); Platelet Count (auto) 119 10^3/uL (140-450); Red Blood Cells 3.63 10^6/uL (4.5-5.90); White Blood Cell 19.2 10^3/uL (4.4-10.8)
[2024-05-18 07:39] LABS: Alanine Aminotransferase 20 U/L (7-40); Anion Gap 3 (5-15); Bilirubin, Total 0.3 mg/dL (0.2-1.0); Carbon Dioxide 30 mmol/L (20-31); Chloride 104 mmol/L (98-107); Glucose 77 mg/dL (74-106); Sodium 137 mmol/L (136-145)
[2024-05-18 07:51] LABS: Albumin 2.5 g/dL (3.2-4.8); Alkaline Phosphatase 176 U/L (46-116); Aspartate Aminotransferase 51 U/L (13-40); BUN/Creatinine Ratio 9.6 (10.0-20.0); Blood Urea Nitrogen < 5 mg/dL (9-23); Calcium 7.7 mg/dL (8.7-10.4); Potassium 3.4 mmol/L (3.5-5.1)
[2024-05-18 08:10] LABS: Basophils % (manual) 0 (0.0-2.0); Blast Cells 0; Eosinophils % (manual) 0 (0-7); Metamyelocytes % 0; Myelocytes % 0; Promyelocytes % 0; Reactive Lymphocytes 0
[2024-05-18 08:42] LABS: Band Neutrophils % (manual) 1; Lymphocytes % (manual) 10 (10.0-50.0); Monocytes % (manual) 4 (0-12)
[2024-05-18 08:43] LABS: Platelet Estimate Decreased
[2024-05-18] MEDS: LOPERAMIDE HCL 2 MG CAP/TAB PO PRN (09:41)
--- NOTE | 2024-05-18 17:22 | MEDREC ---
[facility] Intervention Section I [facility] Intervention: Duplication of therapy (PLEASE CONSIDER D/C FLAGYL SINCE BOTH MEROPENEM AND FLAGYL COVER FOR ANAEROBE ORGANISMS (DUPLICATE) ) JUMA BRUSH PHARMACIST May 18, 2024 17:22
--- NOTE | 2024-05-18 21:50 | DVHPN2 ---
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 His stool for C diff was negative when someone has discontinued the oral vancomycin. Patient is on IV Flagyl Patient has a large exophytic gastric adenocarcinoma that is eroding into the splenic hilum. There appears to be a tract within the gastric tumor where contrast is fistulizing in but there does not appear to be any extravasationThere is perigastric inflammatory changes. There was also perigastric lymph node involvement. Patient had mild proctocolitis. Leukocytosis has started trending downwards today vital signs Vital Sign Date Time Temp Pulse Resp B/P (MAP) Pulse Ox O2 Delivery O2 Flow Rate FiO2 05/18/24 21:00 97.8 81 17 130/69 (89) 99 97.8 05/18/24 19:37 Room Air* 0 21 Total Intake and Output 05/17/24 05/17/24 05/18/24 15:00 23:00 07:00 Intake Total 800 ml 500 ml Balance 800 ml 500 ml medications Current Medications Medications Dose Ordered Sig/Polina Route Start Time Stop Time Status Last Admin Dose Admin Benazepril HCl 20 mg DAILY PO 05/11/24 10:00 05/18/24 09:28 20 MG Atorvastatin Calcium 10 mg HS PO 05/10/24 22:00 05/17/24 21:31 10 MG Acetaminophen/ Hydrocodone Bitart 1 tab Q4HP PRN PO 05/10/24 20:00 05/18/24 09:41 1 TAB Ondansetron HCl 4 mg Q4HP PRN IV 05/10/24 20:00 05/13/24 18:20 4 MG Acetaminophen 650 mg Q6HP PRN PO 05/10/24 20:00 Morphine Sulfate 2 mg Q4HPRN PRN IV 05/10/24 20:00 05/17/24 21:33 2 MG Morphine Sulfate 2 mg Q30M PRN IV 05/10/24 23:15 Pantoprazole Sodium 40 mg BID IV 05/11/24 22:00 05/18/24 09:28 40 MG Diagnostic Test (Pha) 1 strip Q6HR 05/12/24 12:00 05/18/24 17:56 1 STRIP Insulin Human Regular FOLLOW SLIDING SCALE Q6HR SC 05/12/24 12:00 05/18/24 12:24 2 UNITS Dextrose 50 ml UD IV 05/12/24 10:30 Saccharomyces Boulardii 250 mg DAILY PO 05/15/24 10:00 05/18/24 09:28 250 MG Cholestyramine Resin 4 gm Q12HR@11,23 PO 05/15/24 23:00 05/18/24 12:00 4 GM Diphenoxylate HCl/ Atropine 2.5 mg HS PO 05/15/24 22:00 05/17/24 21:31 2.5 MG Meropenem 50 ml @ 17 mls/hr Q8HR IV 05/17/24 06:00 05/18/24 13:40 17 MLS/HR Metronidazole 100 ml @ 100 mls/hr Q8HR IV 05/17/24 06:00 05/18/24 13:40 100 MLS/HR Loperamide HCl 2 mg PRN PRN PO 05/17/24 12:00 05/18/24 09:41 2 MG objective General Appearance: Alert, Oriented X3, Cooperative, No distress HEENT: Atraumatic, PERRLA, EOMI, Mucous membr. moist/pink Respiratory: Clear to auscultation, Normal air movement Cardiovascular: Regular rate, Normal S1, Normal S2, No murmurs Abdominal: Normal bowel sounds, Soft, No hepatospenomegaly, No masses, Other (Reports tenderness) Extremities: No clubbing, No cyanosis, No edema, Normal pulses, No tenderness/swelling Skin: No rashes, No breakdown, No significant lesion Neuro: Normal speech, Normal tone, Sensation intact, Cranial nerves 3-12 NL, Reflexes 2+, Other (Generalized weakness) Psych/Mental Status: Mental status NL, Mood NL laboratory and microbiology Laboratory Tests 05/18/24 06:21 Test 05/18/24 06:21 Range/Units Serum Glucose 77 74-106 mg/dL Problems(with codes): (1) Abnormal finding on GI tract imaging (2) Gastric malignant neoplasm (3) Nausea and vomiting (4) Weakness (5) Anemia of chronic disease (6) Leukocytosis, unspecified Prognosis Plan A advance this patient to a pureed diet He should likely maintain himself on a pureed or soft diet because of the gastric malignancy Continue Protonix 40 mg p.o. daily Continue probiotics Check repeat CBC in a.m. and if the leukocytosis continues to improve then discharge planning will be started as per hospitalist Patient will follow up as an outpatient with Dr. Isaak Dc to discuss further chemo and management Dietary Evaluation Review Comments: 1. Continue diet regime 2. Advance diet as tolerated to CCHO 60g 3. F/u GI Expected Outcomes/Goals: 1. Pt will consume >75% of estimated needs within 2-3 days Plan discussed with: Patient, Other (Nurse) BYRON NEWSOME MD May 18, 2024 21:50
--- NOTE | 2024-05-18 22:16 | DVHPN2 ---
Subjective The patient is seen and examined at bedside. No complaint today. Reviewed: Care Plan, H&P, Labs, Medications, Previous Orders, Radiology Changes from previous H/P or p: No Changes Eyes: No Pain, No Vision change, No Conjunctivae inflammation, No Eyelid inflammation, No Other, No Redness ENT: No Ear pain, No Ear discharge, No Nose pain, No Nose discharge, No Nose congestion, No Mouth pain, No Mouth swelling, No Throat pain, No Throat swelling, No Other Cardiovascular: No Chest Pain, No Palpitations, No Orthopnea, No Paroxysmal Noc. Dyspnea, No Edema, No Lt Headedness, No Other Respiratory: No Cough, No Dry, No Shortness of breath, No SOB with excertion, No Wheezing, No Hemoptysis, No Pleuritic Pain, No Sputum, No Other Gastrointestinal: No Nausea, No Vomiting; Abdominal Pain; No Diarrhea, No Constipation, No Melena, No Hematochezia, No Other Genitourinary: No Dysuria, No Frequency, No Incontinence, No Hematuria, No Retention, No Other Musculoskeletal: No other, No neck pain, No shoulder pain, No arm pain, No back pain, No hand pain, No leg pain, No foot pain Skin: No Rash, No Lesions, No Jaundice, No Bruising, No Other Objective Vitals Vital Signs Date Time Temp Pulse Resp B/P (MAP) Pulse Ox O2 Delivery O2 Flow Rate FiO2 05/18/24 21:00 97.8 81 17 130/69 (89) 99 97.8 05/18/24 19:37 Room Air* 0 21 Intake/Output Intake and Output 05/18/24 07:00 Intake Total 1300 ml Balance 1300 ml Intake Oral 1200 ml IV Total 100 ml # Voids 7 # Bowel Movements 4 General Appearance: Alert, No acute distress HEENT: Atraumatic, PERRLA, EOMI, Mucous membr. moist/pink Lungs: Clear to auscultation, Normal air movement Cardiovascular: Regular rate, Normal S1, Normal S2, No murmurs, Gallops, Rubs Abdomen: Normal bowel sounds, Soft Neuro: Cranial nerves 3-12 NL Psych/Mental Status: Mental status NL Medications Current Medications Medications Dose Ordered Sig/Polina Route Start Time Stop Time Status Last Admin Dose Admin Benazepril HCl 20 mg DAILY PO 05/11/24 10:00 05/18/24 09:28 20 MG Atorvastatin Calcium 10 mg HS PO 05/10/24 22:00 05/17/24 21:31 10 MG Acetaminophen/ Hydrocodone Bitart 1 tab Q4HP PRN PO 05/10/24 20:00 05/18/24 09:41 1 TAB Ondansetron HCl 4 mg Q4HP PRN IV 05/10/24 20:00 05/13/24 18:20 4 MG Acetaminophen 650 mg Q6HP PRN PO 05/10/24 20:00 Morphine Sulfate 2 mg Q4HPRN PRN IV 05/10/24 20:00 05/17/24 21:33 2 MG Morphine Sulfate 2 mg Q30M PRN IV 05/10/24 23:15 Pantoprazole Sodium 40 mg BID IV 05/11/24 22:00 05/18/24 09:28 40 MG Diagnostic Test (Pha) 1 strip Q6HR 05/12/24 12:00 05/18/24 17:56 1 STRIP Insulin Human Regular FOLLOW SLIDING SCALE Q6HR SC 05/12/24 12:00 05/18/24 12:24 2 UNITS Dextrose 50 ml UD IV 05/12/24 10:30 Saccharomyces Boulardii 250 mg DAILY PO 05/15/24 10:00 05/18/24 09:28 250 MG Cholestyramine Resin 4 gm Q12HR@, PO 05/15/24 23:00 05/18/24 12:00 4 GM Diphenoxylate HCl/ Atropine 2.5 mg HS PO 05/15/24 22:00 05/17/24 21:31 2.5 MG Meropenem 50 ml @ 17 mls/hr Q8HR IV 05/17/24 06:00 05/18/24 13:40 17 MLS/HR Metronidazole 100 ml @ 100 mls/hr Q8HR IV 05/17/24 06:00 05/18/24 13:40 100 MLS/HR Loperamide HCl 2 mg PRN PRN PO 05/17/24 12:00 05/18/24 09:41 2 MG Laboratory Results Laboratory Tests 05/18/24 06:21 Chemistry Test 05/18/24 06:21 Albumin 2.5 g/dL (3.2-4.8) L Calcium Level 7.7 mg/dL (8.7-10.4) L Total Protein 5.0 g/dL (5.7-8.2) L LFT Test 05/18/24 06:21 Alanine Aminotransferase (ALT) 20 U/L (7-40) Alkaline Phosphatase 176 U/L (46-116) H Aspartate Amino Transferase (AST) 51 U/L (13-40) H Total Bilirubin 0.3 mg/dL (0.2-1.0) Urinalysis Test 05/11/24 17:00 Urine Color Light-yellow (Yellow) Urine Clarity Clear (Clear) Urine pH 6.5 (5.0-9.0) Urine Specific [place] > 1.035 (1.001-1.035) Urine Protein Negative (Negative) Urine Ketones Negative (Negative) Urine Blood Negative /uL (Negative) Urine Nitrite Negative (Negative) Urine Bilirubin Negative (Negative) Urine Urobilinogen Normal mg/dL (Negative) Urine Leukocyte Esterase Negative /uL (Negative) Urine RBC None seen /hpf (0 - 3) Urine WBC <1 /hpf (0 - 3) Urine Squamous Epithelial Cells None seen /hpf (<5) Urine Bacteria None seen /hpf (None Seen) Urine Glucose Normal mg/dL (Normal) Microbiology Microbiology Date/Time Source Procedure Growth Status 05/15/24 12:30 Stool Stool Culture - Final Complete 05/15/24 12:30 Stool Shiga Toxin I & II - Final Complete 05/14/24 10:30 Blood Blood Culture - Preliminary NO GROWTH AFTER 72 HOURS OF INCUBATION. 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 Dc, started chemotherapy on 05/07, since that time has abdominal pain and black diarrhea Upper GI endoscopy, from 03/03, shows 7-8 cm gastric mass in the fundus which was friable polypoid with central ulceration with oozing and with increased bleeding CT scan with IV contrast, shows 7.1 x 5 cm gastric fundus mass corresponding to known adenocarcinoma with evidence of interval contained perforation at the level of the splenic hilum with mild adjacent fat stranding but no free intraperitoneal air or fluid in the abdomen or pelvis. No contrast extravasation is seen, left gastric and perigastric metastatic lymphadenopathy measuring up to 3.9 x 2.7 cm, proctocolitis (infectious or inflammatory C difficile toxin is negative Stool occult blood is positive GI is on the board, recommended IV PPI Upper GI series shows a defect, extending posteriorly along the gastric fundus. This could represent an ulcer. No obvious extravasation of contrast is seen into the peritoneum Surgery recommended, if the patient could tolerate oral intake, DC home in resume chemotherapy, and signed off Stool culture shows normal enteric abby, with negative shiga toxin [address] scan with contrast on 05/15, shows Approximately 7.2 cm irregular enhancing exophytic mass in the gastric fundus extending into the splenic hilum. Centrally the mass fills with oral contrast and communicates with the gastric lumen. There is mild adjacent fat stranding Repeat stool culture and WBC Repeat C diff toxin check ID is on the board Continue ceftriaxone, started on 05/12 Continue metronidazole, started 05/11 Due to up trending of WBCs at 26.8, and severe diarrhea the patient is now stable to be discharged, Florastor 250 mg daily Continue loperamide Oral cholestyramine started Peripheral smear Consulted back the oncology Transaminitis AST/ALT raised, downtrending Mild Hyponatremia, monitoring Hypomagnesemia, supplemented Hypokalemia, supplemented [id number] Malnutrition Albumin is 3.1 Amino acid infusion Uncontrolled diabetes mellitus Hb A1c, from 02/27 shows 7.7 Insulin regular, according to mild sliding scale Hypertension Hypertensive heart Disease Continue benazepril 20 mg daily Check vitals q.6 hours Dyslipidemia HDL is 30 Continue atorvastatin 10 mg daily Moderate anemia, microcytic Hypochromic, almost stable Thrombocytopenia Monitoring DIET: Full liquids DVT prophylax: Due to possible GI bleeding, anticoagulant is not indicated, SCDs GI prophylaxis: Protonix 40 mg IV b.i.d. Bowel regimen: Patient has diarrhea, no indication for laxative Code status: Full code Continuing current management. The patient is still have a lot of diarrhea. Discharge holding until diarrhea improves. Plan discussed with: Patient, Son Date of Service: May 18, 2024 Billing Provider: KRYSTA GOMEZ MD Common Visit Codes: [id number] INP/OBS CARE(HIGH) KRYSTA GOMEZ MD May 18, 2024 22:16
[2024-05-19 01:00] VITALS: BP 144/78; PULSE 76; RESP 18; TEMP 97.7; O2SAT 98
[2024-05-19 05:00] VITALS: BP 143/78; PULSE 76; RESP 18; TEMP 97.5; O2SAT 94
[2024-05-19 06:52] LABS: Hematocrit 30.3 % (41.0-53.0); Hemoglobin 9.7 g/dL (13.5-17.5); Mean Corpuscular Hemoglobin 24.9 pg (28.0-32.0); Red Blood Cells 3.89 10^6/uL (4.5-5.90)
[2024-05-19 06:54] LABS: Mean Corpuscular Volume 77.8 fL (80.0-100.0); Platelet Count (auto) 115 10^3/uL (140-450); Red Cell Distribution Width 17.7 % (11.8-14.3); White Blood Cell 16.9 10^3/uL (4.4-10.8)
[2024-05-19 07:25] LABS: Basophils % (manual) 0 (0.0-2.0); Blast Cells 0; Eosinophils % (manual) 0 (0-7); Myelocytes % 0; Promyelocytes % 0; Reactive Lymphocytes 0
[2024-05-19 08:41] VITALS: BP 130/72; PULSE 72; RESP 16; TEMP 97.5; O2SAT 96
[2024-05-19] MEDS: MAGNESIUM SULFATE 1GM/100ML 100 ML IV ONE (11:01)
[2024-05-19 12:34] LABS: Band Neutrophils % (manual) 8; Hypochromia Slight; Lymphocytes % (manual) 5 (10.0-50.0); Metamyelocytes % 1; Monocytes % (manual) 5 (0-12); Platelet Estimate Decreased
[2024-05-19] MEDS: POTASSIUM EFFERVESENT TAB 25 MEQ PO ONE (12:41)
[2024-05-19 13:00] VITALS: BP 138/73; PULSE 78; RESP 16; TEMP 97.6; O2SAT 98
--- NOTE | 2024-05-19 13:03 | DVHINCON2 ---
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 pylori on 02/29/2024 on the gastric fundus mass biopsy The EGD showed 7-8 cm gastric mass in the fundus which was friable polypoid 02/28/2024: CT of the abdomen pelvis without contrast showed 6.3 x 8.2 x 6.3 cm mass at the stomach fundus. Multiple perigastric lymph nodes with largest measures 3.9 cm 05/05/2024: pet/ct revealing suspicious distant lymph nodes in the supraclavicular region and axillary nodes, The patient started chemotherapy with 5-FU leucovorin oxaliplatin and Taxotere on May 07, 2024 On May 08, 2024 the patient had a longer acting Neupogen injection The patient is admitted to the hospital with some abdominal pains and having black stools even before starting the chemotherapy Secondary to the Neupogen his white count is high. Today the patient is feeling better. No significant abdominal pains nausea vomiting. She has occasional diarrhea He had a CT scan of the abdomen pelvis with IV contrast only which showed large 87.1 x 5 cm gastric fundus mass corresponding to the known tumor with evidence of interval contained perforation at the level of the splenic hilum And Mild adjacent fat stranding but no free intraperitoneal air or fluid in the abdomen. No contrast extravasation. Left gastric and perigastric metastatic lymphadenopathy measuring up to 3.8 x 2.7 cm Proctocolitis Upper GI series showed contour irregularity and mass lesion seen at the gastric fundus. A defect is seen extending posteriorly along the gastric fundus which correlates to the prior CT scan this could represent an ulcer. No obvious extravasation of contrast is seen into the peritoneum His labs from today showed a white count 16.9 hemoglobin 9.7 platelets 115,000 Past Medical History Diabetes High blood pressure Family History: Hypertension G8 FATHER (HTN) Allergies: Coded Allergies: NO KNOWN ALLERGIES (Unverified , 02/28/24) Home Meds Active Scripts Pantoprazole Sodium Sesquihydr (Protonix) 40 Mg Tab, 40 MG PO BID for 30 Days, #60 TAB 2 Refills Prov:KATHERINE HERNANDEZ RESIDENT 03/02/24 Reported Medications Benazepril Hcl (Lotensin) 20 Mg Tab, 1 TAB PO DAILY, #30 TAB 5 Refills 02/28/24 Linagliptin Base (TRADJENTA) 5 Mg Tab, 1 TAB PO DAILY, #90 TAB 1 Refill 02/28/24 Glipizide (Glipizide) 10 Mg Tab, 1 TAB PO DAILY, #60 TAB 5 Refills 02/28/24 Metformin Hydrochloride (Metformin Hcl) 850 Mg Tab, 1 TAB PO DAILY, #60 TAB 5 Refills 02/28/24 Atorvastatin Calcium (ATORVASTATIN CALCIUM) 10 Mg Tab, 10 MG PO HS 02/28/24 Vital Signs Vital Signs Date Time Temp Pulse Resp B/P (MAP) Pulse Ox O2 Delivery O2 Flow Rate FiO2 05/19/24 11:00 120/70 05/19/24 08:41 97.5 72 16 96 97.5 05/18/24 19:37 Room Air* 0 21 Physical Exam GENERAL: The patient is a moderately built and nourished ,in no distress, alert and oriented. HEAD AND NECK: Unremarkable. No neck nodes or masses. Conjunctivae: Unremarkable for any mucosal hemorrhage or inflammation. Thyroid is nonpalpable. Throat is unremarkable. SPINE: No deformities or tenderness. CHEST: Chest wall, no tenderness. LUNGS: Clear. CARDIOVASCULAR: Regular sinus rhythm. No murmurs or gallops. ABDOMEN: No organomegaly, tenderness or ascites. Bowel sounds present. EXTREMITIES: No clubbing, edema or cyanosis. Peripheral pulses palpable. No calf tenderness. LYMPHATICS: No significant lymphadenopathy. NEUROLOGIC: No focal neurological deficits. SKIN: Unremarkable for any petechiae, purpura, or ecchymosis. Psych: No abnormalities Available data reviewed Labs/Diagnostic Data Labs Test 05/19/24 11:23 05/19/24 05:42 05/17/24 05:25 05/16/24 05:36 Range/Units POC Glucose 176 H 70-106 mg/dl White Blood Count 16.9 H 4.4-10.8 10^3/uL Red Blood Count 3.89 L 4.5-5.90 10^6/uL Hemoglobin 9.7 L 13.5-17.5 g/dL Hematocrit 30.3 L 41.0-53.0 % Mean Corpuscular Volume 77.8 L 80.0-100.0 fL Mean Corpuscular Hemoglobin 24.9 L 28.0-32.0 pg Mean Corpuscular Hemoglobin Concent 32.0 32.0-36.0 g/dL Red Cell Distribution Width 17.7 H 11.8-14.3 % Platelet Count 115 L 140-450 10^3/uL Mean Platelet Volume 7.6 6.9-10.8 fL Neutrophils (%) (Auto) 37.0-80.0 % Lymphocytes (%) (Auto) 10.0-50.0 % Monocytes (%) (Auto) 0.0-12.0 % Basophils (%) (Auto) 0.0-2.0 % Neutrophils # (Auto) 1.6-8.6 10 ^3/uL Lymphocytes # (Auto) 0.4-5.4 10 ^3/uL Monocytes # (Auto) 0-1.3 10 ^3/uL Differential Total Cells Counted 100.0 100 Neutrophils % (Manual) 81 H 37.0-80.0 Band Neutrophils % (Manual) 8 Lymphocytes % (Manual) 5 L 10.0-50.0 Monocytes % (Manual) 5 0-12 Eosinophils % (Manual) 0 0-7 Basophils % (Manual) 0 0.0-2.0 Metamyelocytes % (manual) 1 Myelocytes % (Manual) 0 Promyelocytes % (Manual) 0 Blast Cells % (Manual) 0 Reactive Lymphocytes 0 Platelet Estimate Decreased Hypochromasia (manual) Slight Microcytosis Slight Eosinophils (%) (Auto) 0.4 0.0-7.0 % Eosinophils # (Auto) 0.1 0-0.8 10 ^3/uL Basophils # (Auto) 0.1 0-0.2 10 ^3/uL Nucleated Red Blood Cells 0.3 % Magnesium Level 1.9 1.6-2.6 mg/dL Anisocytosis (manual) Slight Ovalocytes Few Phosphorus Level 3.7 2.4-5.1 mg/dL Test 05/15/24 12:30 05/15/24 05:10 05/12/24 05:55 05/11/24 17:00 Range/Units Stool for White Cells Rare Lactic Acid Level 1.2 0.4-2.0 mmol/L Triglycerides Level 83 < 150 mg/dL Cholesterol Level 84 < 200 mg/dL LDL Cholesterol 29 < 100 mg/dL HDL Cholesterol 38 L 40-59 mg/dL Hepatitis A IgM Antibody Negative Hepatitis B Surface Antigen Negative Negative Hepatitis B Core IgM Antibody Negative Negative Hepatitis C Antibody Negative Negative Urine Color Light-yellow Yellow Urine Clarity Clear Clear Urine pH 6.5 5.0-9.0 Urine Specific [place] > 1.035 H 1.001-1.035 Urine Protein Negative Negative Urine Ketones Negative Negative Urine Blood Negative Negative /uL Urine Nitrite Negative Negative Urine Bilirubin Negative Negative Urine Urobilinogen Normal Negative mg/dL Urine Leukocyte Esterase Negative Negative /uL Urine RBC None seen 0 - 3 /hpf Urine WBC <1 0 - 3 /hpf Urine Squamous Epithelial Cells None seen <5 /hpf Urine Bacteria None seen None Seen /hpf Urine Glucose Normal Normal mg/dL Urine Opiates Screen Neg NEGATIVE Urine Fentanyl Screen Neg NEGATIVE Urine Barbiturates Screen Neg NEGATIVE Urine Phencyclidine Screen Neg NEGATIVE Urine Amphetamines Screen Neg NEGATIVE Urine Benzodiazepines Screen Neg NEGATIVE Urine Cocaine Screen Neg NEGATIVE Urine Cannabinoids Screen Neg NEGATIVE Test 05/11/24 14:37 05/10/24 17:00 05/10/24 16:05 Range/Units Stool Occult Blood Positive Negative Stool Occult Blood Sample #3 Negative Troponin I High Sensitivity < 3 L </=54 ng/L Large Platelets Few B-Type Natriuretic Peptide 18.58 0-100 pg/mL Lipase 26 12-53 U/L Microbiology Date/Time Source Procedure Growth Status 05/15/24 12:30 Stool Stool Culture - Final Complete 05/15/24 12:30 Stool Shiga Toxin I & II - Final Complete 05/14/24 10:30 Blood Blood Culture - Final NO GROWTH AFTER 5 DAYS OF INCUBATION. Complete Assessment 1. 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 pylori on 02/29/2024 on the gastric fundus mass biopsy The EGD showed 78 cm gastric mass in the fundus which was friable polypoid 02/28/2024: CT of the abdomen pelvis without contrast showed 6.3 x 8.2 x 6.3 cm mass at the stomach fundus. Multiple perigastric lymph nodes with largest measures 3.9 cm 05/05/2024: pet/ct revealing suspicious distant lymph nodes in the supraclavicular region and axillary nodes, FLOT to start Started chemotherapy with 5-FU leucovorin oxaliplatin and Taxotere on May 07, 2024 Received a longer acting Neupogen on May 08, 2024 2. Admitted with abdominal pains and some diarrhea and some black stools but the hemoglobin is stable and has leukocytosis which could be secondary to inflammation and also secondary to the longer acting Neupogen and the white count is getting better Concerned about tract formation with inflammatory changes but no signs of any free air 2. Diabetes 3. Hypertension Plan/Recommendation Patient can follow-up with me after discharge Plan discussed with: Patient SOLIS VIERA MD May 19, 2024 13:03
[2024-05-19 13:14] LABS: Alanine Aminotransferase 24 U/L (7-40); Anion Gap 2 (5-15); BUN/Creatinine Ratio 11.1 (10.0-20.0); Chloride 102 mmol/L (98-107); Glucose 92 mg/dL (74-106); Potassium 3.8 mmol/L (3.5-5.1)
[2024-05-19 13:33] LABS: Albumin 2.6 g/dL (3.2-4.8); Alkaline Phosphatase 161 U/L (46-116); Aspartate Aminotransferase 48 U/L (13-40); Bilirubin, Total 0.3 mg/dL (0.2-1.0); Blood Urea Nitrogen 6 mg/dL (9-23); Calcium 8.1 mg/dL (8.7-10.4); Carbon Dioxide 32 mmol/L (20-31); Sodium 136 mmol/L (136-145); Total Protein 5.3 g/dL (5.7-8.2)
--- NOTE | 2024-05-19 16:12 | DVHDSRES ---
Discharge Summary Date of Admission Resident Creating Document: CRISTOBAL DEAN RESDIENT May 10, 2024 at 23:05 Date of Discharge: May 19, 2024 Admitting Diagnosis Acute abdominal pain Labs/Diagnostic Data: Laboratory Results Test 05/19/24 11:23 05/19/24 05:42 05/17/24 05:25 05/16/24 05:36 POC Glucose 176 mg/dl (70-106) White Blood Count 16.9 10^3/uL (4.4-10.8) Red Blood Count 3.89 10^6/uL (4.5-5.90) Hemoglobin 9.7 g/dL (13.5-17.5) Hematocrit 30.3 % (41.0-53.0) Mean Corpuscular Volume 77.8 fL (80.0-100.0) Mean Corpuscular Hemoglobin 24.9 pg (28.0-32.0) Mean Corpuscular Hemoglobin Concent 32.0 g/dL (32.0-36.0) Red Cell Distribution Width 17.7 % (11.8-14.3) Platelet Count 115 10^3/uL (140-450) Mean Platelet Volume 7.6 fL (6.9-10.8) Neutrophils (%) (Auto) % (37.0-80.0) Lymphocytes (%) (Auto) % (10.0-50.0) Monocytes (%) (Auto) % (0.0-12.0) Basophils (%) (Auto) % (0.0-2.0) Neutrophils # (Auto) 10 ^3/uL (1.6-8.6) Lymphocytes # (Auto) 10 ^3/uL (0.4-5.4) Monocytes # (Auto) 10 ^3/uL (0-1.3) Differential Total Cells Counted 100.0 (100) Neutrophils % (Manual) 81 (37.0-80.0) Band Neutrophils % (Manual) 8 Lymphocytes % (Manual) 5 (10.0-50.0) Monocytes % (Manual) 5 (0-12) Eosinophils % (Manual) 0 (0-7) Basophils % (Manual) 0 (0.0-2.0) Metamyelocytes % (manual) 1 Myelocytes % (Manual) 0 Promyelocytes % (Manual) 0 Blast Cells % (Manual) 0 Reactive Lymphocytes 0 Platelet Estimate Decreased Hypochromasia (manual) Slight Microcytosis Slight Sodium Level 136 mmol/L (136-145) Potassium Level 3.8 mmol/L (3.5-5.1) Chloride Level 102 mmol/L (98-107) Carbon Dioxide Level 32 mmol/L (20-31) Anion Gap 2 (5-15) Blood Urea Nitrogen 6 mg/dL (9-23) Creatinine 0.54 mg/dL (0.700-1.30) Glomerular Filtration Rate Calc 113 mL/min (>90) BUN/Creatinine Ratio 11.1 (10.0-20.0) Serum Glucose 92 mg/dL (74-106) Calcium Level 8.1 mg/dL (8.7-10.4) Total Bilirubin 0.3 mg/dL (0.2-1.0) Aspartate Amino Transferase (AST) 48 U/L (13-40) Alanine Aminotransferase (ALT) 24 U/L (7-40) Alkaline Phosphatase 161 U/L (46-116) Total Protein 5.3 g/dL (5.7-8.2) Albumin 2.6 g/dL (3.2-4.8) Eosinophils (%) (Auto) 0.4 % (0.0-7.0) Eosinophils # (Auto) 0.1 10 ^3/uL (0-0.8) Basophils # (Auto) 0.1 10 ^3/uL (0-0.2) Nucleated Red Blood Cells 0.3 % Magnesium Level 1.9 mg/dL (1.6-2.6) Anisocytosis (manual) Slight Ovalocytes Few Phosphorus Level 3.7 mg/dL (2.4-5.1) Test 05/15/24 12:30 05/15/24 05:10 05/12/24 05:55 05/11/24 17:00 Stool for White Cells Rare Lactic Acid Level 1.2 mmol/L (0.4-2.0) Triglycerides Level 83 mg/dL (< 150) Cholesterol Level 84 mg/dL (< 200) LDL Cholesterol 29 mg/dL (< 100) HDL Cholesterol 38 mg/dL (40-59) Hepatitis A IgM Antibody Negative Hepatitis B Surface Antigen Negative (Negative) Hepatitis B Core IgM Antibody Negative (Negative) Hepatitis C Antibody Negative (Negative) Urine Color Light-yellow (Yellow) Urine Clarity Clear (Clear) Urine pH 6.5 (5.0-9.0) Urine Specific [place] > 1.035 (1.001-1.035) Urine Protein Negative (Negative) Urine Ketones Negative (Negative) Urine Blood Negative /uL (Negative) Urine Nitrite Negative (Negative) Urine Bilirubin Negative (Negative) Urine Urobilinogen Normal mg/dL (Negative) Urine Leukocyte Esterase Negative /uL (Negative) Urine RBC None seen /hpf (0 - 3) Urine WBC <1 /hpf (0 - 3) Urine Squamous Epithelial Cells None seen /hpf (<5) Urine Bacteria None seen /hpf (None Seen) Urine Glucose Normal mg/dL (Normal) Urine Opiates Screen Neg (NEGATIVE) Urine Fentanyl Screen Neg (NEGATIVE) Urine Barbiturates Screen Neg (NEGATIVE) Urine Phencyclidine Screen Neg (NEGATIVE) Urine Amphetamines Screen Neg (NEGATIVE) Urine Benzodiazepines Screen Neg (NEGATIVE) Urine Cocaine Screen Neg (NEGATIVE) Urine Cannabinoids Screen Neg (NEGATIVE) Test 05/11/24 14:37 05/10/24 17:00 05/10/24 16:05 Stool Occult Blood Positive (Negative) Stool Occult Blood Sample #3 (Negative) Troponin I High Sensitivity < 3 ng/L (</=54) Large Platelets Few B-Type Natriuretic Peptide 18.58 pg/mL (0-100) Lipase 26 U/L (12-53) Other Laboratory Tests 05/19/24 05:42 Brief Hx & Hospital Course: A 63-year-old male with a history of hypertension, type 2 diabetes mellitus, and hyperlipidemia presented to the ED with abdominal pain for the past 2-3 days. He was previously admitted in February 2024 for intermittent diarrhea, heartburn, acidity, and black stools over three months. A CT scan revealed a 6.3 x 8.2 x 6.3 cm mass at the stomach fundus with multiple perigastric lymph nodes, the largest measuring 3.9 cm. An EGD by Dr. 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 He started chemotherapy under Dr. Dc, with the first session on 05/07/2024. Post-chemotherapy, he experienced abdominal discomfort and loose stools, passing 4-5 dark stools in the last two days, leading to his current admission for further workup. He denies any past surgical history, is a former smoker, and has not used alcohol or drugs for over a year. His home medications include atorvastatin, benazepril, glipizide, metformin, and protonix. The patient, followed by Dr. Dc, started chemotherapy on 05/07 and has since experienced abdominal pain and black diarrhea. An upper GI endoscopy on 03/03 revealed a 7-8 cm friable polypoid gastric mass with central ulceration and oozing. A CT scan with IV contrast showed a 7.1 x 5 cm gastric fundus mass, corresponding to known adenocarcinoma, with contained perforation at the splenic hilum and mild adjacent fat stranding, but no free intraperitoneal air or fluid. Left gastric and perigastric metastatic lymphadenopathy was noted, measuring up to 3.9 x 2.7 cm, along with proctocolitis. C. difficile toxin was negative, but stool occult blood was positive. GI recommended IV PPI. An upper GI series indicated a defect in the gastric fundus, possibly an ulcer, with no contrast extravasation into the peritoneum. Surgery was recommended if the patient could tolerate oral intake, with plans to discharge home and resume chemotherapy. Stool culture showed normal enteric abby, negative for shiga toxin 1 and 2. A repeat abdominal CT on 05/15 showed a 7.2 cm irregular enhancing exophytic mass in the gastric fundus extending into the splenic hilum, with mild adjacent fat stranding. ID recommended ceftriaxone and metronidazole, Florastor, loperamide, and oral cholestyramine. oncology recommended that high WBCs is due to given filgrastim to the patient. During admission the electrolyte imbalances supplemented. Discharge plan: Follow up with the PCP within 1 week after discharge Follow up with the Oncology/Hematology, Dr. Dc on outpatient for the chemotherapy Follow up with the GI doctor, outpatient basis Continue Protonix 40 mg daily Consults/Reason for consult GI: Upper GI bleeding Surgery: Stomach ulcer, and possible stomach perforation Operations or Procedures [place] [id number] Ph: [phone] DIAGNOSTIC IMAGING Diagnostic Imaging Report : [id number] Signed PATIENT: LORETA ELENA ACCT: [id number] UNIT: [id number] : 1960 LOC: ER ROOM / BED: / AGE / SEX: 63 / M ADM STATUS: REG ER SERVICE 1526 ORDERING PHYSICIAN: YOMI BARRERA DO PROCEDURE(s): ABPL - CT AB PEL WO CON-NO ORAL OR IV REASON: abd pain, black stool, h/o stomach CA ORDER NUMBER(s): [id number], ACCESSION NUMBER(s): [id number] Exam: CT CT AB PEL WO CON-NO ORAL OR IV History: abd pain, black stool, h/o stomach CA Comparison Study: 02/28/2024 TECHNIQUE: Multidetector CT of the abdomen was performed from lung bases to pubic symphysis. Imaging was performed without IV contrast. Axial, coronal and sagittal multiplanar reformats were obtained from the axial data set by the technologist. Radiation Dose Information: CT Dose: CTDI volume is 7.55 mGy. Dose-length product is 383.34 mGy*cm FINDINGS: Evaluation of solid organs is limited due to lack of intravenous contrast use. Findings: Lung Bases: No acute or significant lung base finding. Normal heart size. No pleural or pericardial effusion. Liver: The liver is normal in size. No focal lesions. Gallbladder and Biliary Tree: Unremarkable Spleen: Unremarkable Pancreas: The pancreas is grossly normal in appearance. Adrenal Glands: Unremarkable Kidneys: 2.3 cm round cortical lesion right kidney changed from 02/28/2024 Bladder: Grossly unremarkable for degree of distention. Bowel: Poor evaluation of the stomach. There is no oral or IV contrast given.. Deformity 2 the stomach is noted measuring approximately 8 cm which may be the mass previously described. There is also a 3 4 cm mass in the lesser curvature of the stomach previously described on the study of 07/2023. Small bowel and colon are normal in caliber and distribution. The appendix is visualized and appears normal. Ascites: Absent Lymphadenopathy: No mesenteric, retroperitoneal or periportal lymphadenopathy. Abdominal Wall and Mesentery: Unremarkable. Vasculature: The visualized abdominal aorta is normal in size and caliber. Evaluation of abdominal and pelvic vessels is limited due to lack of intravenous contrast. Pelvic Organs: Unremarkable Musculoskeletal: No aggressive focal bony lesions, acute fractures or dislocation. Soft tissues: Unremarkable IMPRESSION: 1. No free air or free fluid. 2. Gastric mass can not be well evaluated without oral and/or IV contrast. Gastric mass was noticed on prior study of 02/28/2024. There is 8 cm deformity to the stomach which may represent the previously noted gastric mass. There is also a 3.823.9 cm mass along the lesser curvature of the stomach noted on prior study of 02/28/2024. 3. There are no intrahepatic masses seen. 4. No calcified gallstones. 5. No nephrolithiasis or hydronephrosis. 6. No findings to suggest bowel obstruction. Radiation optimization: All CT scans at this facility use at least one of these dose optimization techniques: automated exposure control mA and/or kV adjustment per patient size (includes targeted exams where dose is matched to clinical indication) or iterative reconstruction. ATED BY: JUAN ELIZALDE Jr., DO DICTATED DATE/TIME: 05/10/241631 SIGNED BY: JUAN ELIZALDE Jr., SIGNED DATE/TIME: 05/10/241631 CC: [place] [address] Ph: [phone] DIAGNOSTIC IMAGING Diagnostic Imaging Report : [id number] Signed PATIENT: LORETA ELENA ACCT: [id number] UNIT: [id number] : 1960 LOC: CENTRAL ROOM / BED: [facility] / A AGE / SEX: 63 / M ADM STATUS: ADM IN SERVICE 4 ORDERING PHYSICIAN: BYRON NEWSOME MD PROCEDURE(s): ABPLC - CT ABD PELVIS W CON-ORAL & IV REASON: leukocytosis ORDER NUMBER(s): [id number], ACCESSION NUMBER(s): [id number] Exam: CT CT ABD PELVIS W CON-ORAL IV History: leukocytosis TECHNIQUE: A digital machine spreader image was obtained. During the uneventful, intravenous administration of contrast material, multislice data acquisition was obtained through the abdomen and pelvis. The data set was subsequently reconstructed into axial images. Images were reviewed on a work station using a combination of axial and multiplanar using a variety of window levels and settings. 100 cc of Omnipaque 300 contrast was injected intravenously. All CT scans at this medical facility are performed using dose modulation techniques as appropriate to a performed exam including the following:Automated exposure control was utilized; adjustment of the MA and/or KV according to patient size; and use of iterative reconstruction technique. Radiation Dose Information: CT Dose: CTDI volume is 6.7 mGy. Dose-length product is 391.07 mGy*cm Comparison: CT CT AB PEL WITH IV CON ONLY on DOS: 05/11/24, CT CT AB PEL WO CON- NO ORAL OR IV on DOS: 05/10/24 FINDINGS: There is redemonstration of an approximately 7.2 cm irregular enhancing exophytic mass in the gastric fundus extending into the splenic hilum. Centrally the mass fills with oral contrast and communicates with the gastric lumen. There is mild fat stranding surrounding the mass. There is diffuse fatty infiltration of the liver. There is a 2.4 cm benign-appearing right renal cyst. There is no evidence of nephrolithiasis or hydronephrosis. The gallbladder, pancreas, adrenal glands, and spleen appear within normal limits. There are enhancing nodule seen immediately posterior to the body of the stomach measuring 3.8 cm and 3.0 cm. These likely represent metastatic perigastric lymph nodes. There is no obvious retroperitoneal lymphadenopathy.. There is no free fluid or free air. The small and large bowel loops demonstrate normal caliber. The rectum, sigmoid and distal descending colon demonstrate irregular wall thickening and surrounding fat stranding. There are few diverticula seen. The remainder of the colon appears within normal limits. The abdominal aorta and IVC appear within normal limits. Bladder is decompressed limiting evaluation. Pelvic organs is unremarkable. There is no evidence of a pelvic mass or lymphadenopathy. There is no free fluid collection. Lung bases are clear. There is no acute osseous abnormality. IMPRESSION: 1. Approximately 7.2 cm irregular enhancing exophytic mass in the gastric fundus extending into the splenic hilum. Centrally the mass fills with oral contrast and communicates with the gastric lumen. There is mild adjacent fat stranding. 2. Enhancing nodule seen immediately posterior to the body of the stomach measuring up to 3.8 cm. These likely represent perigastric metastatic lymph nodes. 3. There is irregular wall thickening and surrounding fat stranding in the distal colon compatible with proctocolitis. Clinical correlation is recommended. 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), likely metastasis to the perigastric lymph nodes Possible gastric perforation/contained SIRS, likely due to stomach ulcer/adenocarcinoma Nausea and vomiting, likely due to gastric adenocarcinoma Weakness likely due to gastric adenocarcinoma Proctocolitis, likely infectious/inflammatory Transaminitis Mild Hyponatremia, monitoring Hypomagnesemia, supplemented Hypokalemia, supplemented [id number] Malnutrition Uncontrolled diabetes mellitus Hypertension Hypertensive heart Disease Dyslipidemia Moderate anemia, microcytic Hypochromic, almost stable Ruled out GIST Uncontrolled diabetes mellitus type 2 Hypertensive heart disease Generalized weakness, likely due to gastric adenocarcinoma Melena, likely due to upper GI bleeding Ruled out colon cancer Moderate protein malnutrition Lactic acidosis Discharge Disposition: Home Discharge Instruct/Medications Diet: Cardiac 2g Na,low cholest Activity: No Restrictions, As Tolerated Follow Up/Referral: Follow with your PCP in 1-2 weeks Follow up with Hematooncologist Dr. Dc. Folow up with GI as needed. Medications: As per CORY Take pantoprazole 40 mg daily in AM. Discharge Statement: "Patient was advised to return to the ER or call 911 if any headaches, dizziness, shortness of breath, chest pain, abdominal pain, bleeding, fevers, or worsening of medical condition. Patient was counseled about treatment plan, medications, possible side effects, patientverbalized understanding. All questions were answered to the best of my ability. This discharge took greater then 30 minutes in planning, reviewing documentation, counseling the patient, and discussing with other team members." ASSESSMENT ASSESSMENT Assessment Acute GI bleeding, likely upper GI Stomach adenocarcinoma, Gastric Mass / 7.2 cm irregular Antibiotic associated diarrhea, possibley due to filgrastim, controlled. Transaminitis, downtrending Mild Hyponatremia, improved Hypomagnesemia, improved. Hypokalemia, improved. [id number] Malnutrition Uncontrolled diabetes mellitus, moderately controlled, SSI. Hypertension Hypertensive heart Disease Dyslipidemia Moderate anemia, microcytic Hypochromic, almost stable Thrombocytopenia, improved. Persistant leukocytosis likely due to filgrastim. Date of Service: May 19, 2024 Billing Provider: SALLY MEJIA MD Common Visit Codes: 23931-HSF/OBS DISCH DAY >30CRISTOBAL Neal May 19, 2024 16:12 SALLY MEJIA MD May 19, 2024 16:42
[2024-05-19 16:23] VITALS: BP 120/70
[2024-05-19 16:37] VITALS: BP 118/66; PULSE 78; RESP 18; TEMP 97.7; O2SAT 98
== END 2024-05-19 17:59 | disposition home or self-care (01) | DRG 240 ==
LOC: EDBD 15:21 → ER 15:21 → TELE 23:05 → TELE-CENTR 05-11 01:35 → CENTRAL 05-13 03:49
PROVIDERS: ADMIT Internal Medicine; ATTEND Emergency Medicine
DX: C16.9 Malignant neoplasm of stomach, unspecified (principal); E44.0 Moderate protein-calorie malnutrition; C77.2 Secondary and unspecified malignant neoplasm of intra-abdominal lymph nodes; D69.6 Thrombocytopenia, unspecified; D63.8 Anemia in other chronic diseases classified elsewhere; E87.20 Acidosis, unspecified; E87.1 Hypo-osmolality and hyponatremia; R74.01 Elevation of levels of liver transaminase levels; K25.9 Gastric ulcer, unspecified as acute or chronic, without hemorrhage or perforation; E83.42 Hypomagnesemia; E87.6 Hypokalemia; A09 Infectious gastroenteritis and colitis, unspecified; D50.9 Iron deficiency anemia, unspecified; E78.5 Hyperlipidemia, unspecified; D72.829 Elevated white blood cell count, unspecified; E11.65 Type 2 diabetes mellitus with hyperglycemia; Z85.028 Personal history of other malignant neoplasm of stomach; Z82.49 Family history of ischemic heart disease and other diseases of the circulatory system; Z85.038 Personal history of other malignant neoplasm of large intestine; Z85.831 Personal history of malignant neoplasm of soft tissue; Z79.899 Other long term (current) drug therapy; T45.8X5A Adverse effect of other primarily systemic and hematological agents, initial encounter; Y92.89 Other specified places as the place of occurrence of the external cause; Z68.26 Body mass index [BMI] 26.0-26.9, adult
CPT/HCPCS: 36415; 71045; 74176; 74177; 74246; 80053; 80061; 80074; 80307; 81001; 82270; 82962; 83605; 83690; 83735; 83880; 84100; 84484; 85007; 85014; 85018; 85025; 85027; 85048; 87040; 87045; 87177; 87427; 87493; 93005; 97110; 97116; 97162; G0378; J1815; J2185; J2405; J2470; J3480; J3490

== ENCOUNTER 2024-06-02 15:38 | Inpatient (IN) | payer MEDICAID ==
[~2024-06-02] VITALS: Ht 167.6 cm; Wt 68.0 kg
[2024-06-02] MEDS: FLORASTOR (S. BOULARDII) 250 MG CAP PO ONE (03:20)
--- NOTE | 2024-06-02 16:27 | ED.PDOC ---
GI ASSESSMENT HPI Comments 63 y.o male PMHx of stomach cancer, DM, HTN, blood transfusions, anemia, hyperlipidemia, and sciatica, presents to the ED for a chief complaint of LUQ pain associated with diarrhea that started 4 days ago. Patient reports loose brown diarrhea with no blood noted. Patient reports he had routine blood work done today around 1400. Patient was at his PCP's office today and was sent to the ED due to tachycardiac in the office. He appears with heart rate of 109. Time Seen by MD: 16:15 Primary Care Provider: MAXIMILIANO ONCOLOGIST, PCP ISMONE Reviewed Notes: Nurses Notes, Medications, Allergies Allergies: Coded Allergies: NO KNOWN ALLERGIES (Unverified , 02/28/24) Home Meds Active Scripts Pantoprazole Sodium Sesquihydr (Protonix) 40 Mg Tab, 40 MG PO BID for 30 Days, #60 TAB 2 Refills Prov:KATHERINE HERNANDEZ RESIDENT 03/02/24 Reported Medications Benazepril Hcl (Lotensin) 20 Mg Tab, 1 TAB PO DAILY, #30 TAB 5 Refills 02/28/24 Linagliptin Base (TRADJENTA) 5 Mg Tab, 1 TAB PO DAILY, #90 TAB 1 Refill 02/28/24 Glipizide (Glipizide) 10 Mg Tab, 1 TAB PO DAILY, #60 TAB 5 Refills 02/28/24 Metformin Hydrochloride (Metformin Hcl) 850 Mg Tab, 1 TAB PO DAILY, #60 TAB 5 Refills 02/28/24 Atorvastatin Calcium (ATORVASTATIN CALCIUM) 10 Mg Tab, 10 MG PO HS 02/28/24 Information Source: Patient, Relative Mode of Arrival: Wheelchair Timing: Days (4) Duration: Since onset Quality: Aching Vomitus: None Stool: Loose Severity: Moderate Recent: None Recent Hx of: None Pain Location: LUQ Modifying Factors: Nothing Associated sign and symptoms: Diarrhea, Abdominal Pain Past Medical History PAST MEDICAL HISTORY: Anemia, Cancer, DM, High Lipids Past Medical History (Other): sciatica and blood transfusions Surgical History (Other): back Family History Family History: Reviewed,noncontributory to illness Social History Smoker: Quit Greater Than 1 Year Alcohol: Denies ETOH Use Drugs: Denies Drug Use Constitutional: denies: chills, diaphoresis, fatigue, fever, malaise, sweats, weakness, others EENTM: denies: blurred vision, double vision, ear bleeding, ear discharge, ear drainage, ear pain, ear ringing, eye pain, eye redness, hearing loss, mouth pain, mouth swelling, nasal discharge, nose bleeding, nose congestion, nose pain, photophobia, tearing, throat pain, throat swelling, voice changes, others Respiratory: denies: cough, hemoptysis, orthopnea, SOB at rest, shortness of breath, SOB with excertion, stridor, wheezing, others Cardiovascular: denies: chest pain, dizzy spells, diaphoresis, Dyspnea on exertion, edema, irregular heart beat, left arm pain, lightheadedness, palpitations, PND, syncope, others Gastrointestinal: reports: abdominal pain, diarrhea; denies: abdomen distended, blood streaked bowels, constipated, dysphagia, difficulty swallowing, hematemesis, melena, nausea, poor appetite, poor fluid intake, rectal bleeding, rectal pain, vomiting, others Genitourinary: denies: burning, dysuria, flank pain, frequency, hematuria, incontinence, penile discharge, penile sore, pain, testicle pain, testicle swelling, urgency, others Neurological: denies: dizziness, fainting, headache, left sided numbness, left sided weakness, numbness, paresthesia, pre-existing deficit, right sided numbness, right sided weakness, seizure, speech problems, tingling, tremors, weakness, others Musculoskeletal: denies: back pain, gout, joint pain, joint swelling, muscle pain, muscle stiffness, neck pain, others Integumetry: denies: bruises, change in color, change in hair/nails, dryness, laceration, lesions, lumps, rash, wounds, others Allergic/Immunocompromised: denies: Difficulty Healing, Frequent Infections, Hives, Itching, others Hematologic/Lymphatic: denies: anemia, blood clots, easy bleeding, easy bruising, swollen glands, others Endocrine: denies: excessive hunger, excessive sweating, excessive thirst, excessive urination, flushing, intolerance to cold, intolerance to heat, unexplained weight gain, unexplained weight loss, others Psychiatric: denies: anxiety, bipolar disorder, depression, hopeless, panic disorder, schizophrenia, sleepless, suicidal, others All Other Systems: Reviewed and Negative Physical Exam General Appearance: Moderate Distress HEENT: Normal ENT Inspection, Pharynx Normal, TMs Normal Neck: Full Range of Motion, Non-Tender, Normal, Normal Inspection Respiratory: Chest Non-Tender, Lungs Clear, No Accessory Muscle Use, No Respiratory Distress, Normal Breath Sounds Cardiovascular: No Edema, No JVD, No Murmur, No Gallop, Normal Peripheral Pulses, Regular Rate/Rhythm Breast Exam: Deferred Gastrointestinal: LLQ, LUQ, No Organomegaly, No Pulsatile Mass, Normal Bowel Sounds, Soft, Tenderness Genitalia: Deferred Pelvic: Deferred Rectal: Deferred Extremities: No calf tenderness, Normal capillary refill, No pedal edema Musculoskeletal : Apperance: Normal Neurologic: Alert, capacitor 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 Was a procedure done?: No GI differential Dx Differential Diagnosis: Diverticular disease, Esophagitis, Gastroenteritis, Inflammatory BD, Trauma intraabdominal, Electrolyte Imbalance, Food Poisoning, Viral X-Ray, Labs, Meds, VS Vital Signs Date Time Temp Pulse Resp B/P (MAP) Pulse Ox O2 Delivery O2 Flow Rate FiO2 06/02/24 16:36 97.9 106 17 120/81 (94) 100 Lab Test 06/02/24 20:35 06/02/24 16:50 Range/Units Urine Color Pending Urine Clarity Pending Urine pH Pending Urine Specific [place] Pending Urine Protein Pending Urine Ketones Pending Urine Blood Pending Urine Nitrite Pending Urine Bilirubin Pending Urine Urobilinogen Pending Urine Leukocyte Esterase Pending Urine RBC Pending Urine WBC Pending Urine Squamous Epithelial Cells Pending Urine Bacteria Pending Urine Glucose Pending White Blood Count 32.1 *H 4.4-10.8 10^3/uL Red Blood Count 4.61 4.5-5.90 10^6/uL Hemoglobin 11.0 L 13.5-17.5 g/dL Hematocrit 34.7 L 41.0-53.0 % Mean Corpuscular Volume 75.3 L 80.0-100.0 fL Mean Corpuscular Hemoglobin 23.9 L 28.0-32.0 pg Mean Corpuscular Hemoglobin Concent 31.8 L 32.0-36.0 g/dL Red Cell Distribution Width 17.9 H 11.8-14.3 % Platelet Count 244 140-450 10^3/uL Mean Platelet Volume 7.5 6.9-10.8 fL Neutrophils (%) (Auto) 37.0-80.0 % Lymphocytes (%) (Auto) 10.0-50.0 % Monocytes (%) (Auto) 0.0-12.0 % Basophils (%) (Auto) 0.0-2.0 % Neutrophils # (Auto) 1.6-8.6 10 ^3/uL Lymphocytes # (Auto) 0.4-5.4 10 ^3/uL Monocytes # (Auto) 0-1.3 10 ^3/uL Differential Total Cells Counted 100.0 100 Neutrophils % (Manual) 79 37.0-80.0 Band Neutrophils % (Manual) 9 Lymphocytes % (Manual) 7 L 10.0-50.0 Monocytes % (Manual) 5 0-12 Eosinophils % (Manual) 0 0-7 Basophils % (Manual) 0 0.0-2.0 Metamyelocytes % (manual) 0 Myelocytes % (Manual) 0 Promyelocytes % (Manual) 0 Blast Cells % (Manual) 0 Reactive Lymphocytes 0 Platelet Estimate Adequate Hypochromasia (manual) Slight Microcytosis Slight Prothrombin Time 11.3 9.3-11.8 sec Prothrombin Time INR 1.07 0.9-1.15 Activated Partial Thromboplast Time 26.6 24.5-34.5 SEC Sodium Level 131 L 136-145 mmol/L Potassium Level 3.9 3.5-5.1 mmol/L Chloride Level 99 98-107 mmol/L Carbon Dioxide Level 27 20-31 mmol/L Anion Gap 5 5-15 Blood Urea Nitrogen 22 9-23 mg/dL Creatinine 0.98 0.700-1.30 mg/dL Glomerular Filtration Rate Calc 88 >90 mL/min BUN/Creatinine Ratio 22.4 H 10.0-20.0 Serum Glucose 151 H 74-106 mg/dL Calcium Level 8.1 L 8.7-10.4 mg/dL Procedure: CT CT AB PEL WO CON-NO ORAL OR IV 06/02/2024 05:06 PM IMPRESSION: 1. Suboptimal CT scan without IV and oral contrast. 2. There is interval improvement of proctocolitis but mild residual inflammation still present. Liquid stool in the lumen of the sigmoid colon and rectum suggesting diarrheal state. 3. Stable ulcerating large gastric fundus mass with contained perforation and extension to the splenic hilum with no free fluid or air in the abdomen or pelvis. Metastatic perigastric lymph nodes are again noted. 4. Hepatic steatosis. At this time the patient's CBC shows an elevated white blood cell count of 32.1 with a hemoglobin of 11 and hematocrit of 34.7 The chemistry panel is within normal limits except for hyperglycemia at 151 At this time, the patient was being admitted to the hospitalist At this time we are getting a surgical consult as well. Images Reviewed?: Images reviewed and evaluated by me Time of 1ST Reevaluation: 16:27 Reevaluation 1ST: Unchanged Patient Education/Counseling: Diagnosis, Treatment, Prognosis Family Education/Counseling: Diagnosis, Treatment, Prognosis Departure 1 Departure Time of Disposition: 20:43 Impression: Primary Impression: Acute abdominal pain Additional Impressions: Diarrhea Qualified Codes: R19.7 - Diarrhea, unspecified Gastric cancer Qualified Codes: C16.9 - Malignant neoplasm of stomach, unspecified Disposition: 09 ADMITTED INPATIENT Admit to: Med Surg Condition: Fair Critical Care Note Critical Care Time?: No Stability Stability form required: Yes Unstable for transfer: ED Physician Assesment (Clinical assesment) I personally scribed for TAMMI PARDO MD ([email or web address]) on 06/02/24 at 16:27. Electronically submitted by Saritha Willoughby ([facility]). I personally scribed for TAMMI PARDO MD ([email or web address]) on 06/02/24 at 17:45. Electronically submitted by Saritha Willoughby ([facility] TAMMI PARDO MD Jun 02, 2024 16:27
[2024-06-02 17:10] LABS: Chloride 99 mmol/L (98-107); Potassium 3.9 mmol/L (3.5-5.1)
[2024-06-02 17:11] LABS: Anion Gap 5 (5-15); Carbon Dioxide 27 mmol/L (20-31)
[2024-06-02 17:14] LABS: Hematocrit 34.7 % (41.0-53.0); Mean Corpuscular Hemoglobin 23.9 pg (28.0-32.0); Mean Corpuscular Hgb Conc. 31.8 g/dL (32.0-36.0); Mean Corpuscular Volume 75.3 fL (80.0-100.0); Platelet Count (auto) 244 10^3/uL (140-450); Red Blood Cells 4.61 10^6/uL (4.5-5.90); Red Cell Distribution Width 17.9 % (11.8-14.3)
[2024-06-02 17:16] LABS: BUN/Creatinine Ratio 22.4 (10.0-20.0); Blood Urea Nitrogen 22 mg/dL (9-23); White Blood Cell 32.1 10^3/uL (4.4-10.8)
[2024-06-02 17:17] LABS: Basophils % (manual) 0 (0.0-2.0); Blast Cells 0; Eosinophils % (manual) 0 (0-7); Metamyelocytes % 0; Myelocytes % 0; Promyelocytes % 0; Reactive Lymphocytes 0
[2024-06-02 17:19] LABS: Calcium 8.1 mg/dL (8.7-10.4); Glucose 151 mg/dL (74-106); Sodium 131 mmol/L (136-145)
[2024-06-02 17:26] LABS: INR 1.07 (0.9-1.15); Partial Thromboplastin Time 26.6 SEC (24.5-34.5); Prothrombin Time 11.3 sec (9.3-11.8)
--- NOTE | 2024-06-02 17:30 | DVH ---
Procedure: CT CT AB PEL WO CON-NO ORAL OR IV 06/02/2024 05:06 PM Indication: pain to luq Comparison Study: CT scan dated 04/1924 Technique: Axial images were obtained and reformatted in coronal and sagittal planes. All CT scans at this medical facility are performed using dose modulation techniques as appropriate t o a performed exam including the following: Automated exposure control was utilized; adjustment of th e MA and/or KV according to patient size; and use of iterative reconstruction technique. CT Dose: CTDI volume is 5.5 mGy. Dose-length product is 285 mGy*cm FINDINGS: Lower Chest: Unremarkable. Hepatobiliary: Hepatic steatosis. Spleen: Unremarkable. Pancreas: Unremarkable. Adrenal Glands: Unremarkable. tract: The kidneys are normal in size bilaterally without hydronephrosis or nephrolithiasis. The urinary bladder is unremarkable. GI tract: There is redemonstration of a large ulcerated gastric fundus mass extending to the splenic hilum. No free intraperitoneal air or fluid noted. Circumferential mural thickening of the descending , sigmoid colon and rectum with adjacent fat stranding. Liquid stool seen in the lumen of the rectum . The large bowel is unremarkable. The appendix is normal. Lymphatics: Redemonstration of prominent perigastric lymph nodes along the gastric lesser curvature m easuring up to 3.8 cm. Vasculature: The abdominal aorta is normal in in caliber. Pelvic Organs: Unremarkable Bones/soft tissues: No acute osseous abnormality. Multilevel degenerative changes of the lumbar spin e noted. Other: None. IMPRESSION: 1. Suboptimal CT scan without IV and oral contrast. 2. There is interval improvement of proctocolitis but mild residual inflammation still present. Liqui d stool in the lumen of the sigmoid colon and rectum suggesting diarrheal state. 3. Stable ulcerating large gastric fundus mass with contained perforation and extension to the spleni c hilum with no free fluid or air in the abdomen or pelvis. Metastatic perigastric lymph nodes are a gain noted. 4. Hepatic steatosis.
[2024-06-02 18:25] LABS: Band Neutrophils % (manual) 9; Lymphocytes % (manual) 7 (10.0-50.0); Monocytes % (manual) 5 (0-12)
[2024-06-02 18:26] LABS: Hypochromia Slight; Platelet Estimate Adequate
[2024-06-02 20:37] LABS: Urine Bacteria None Seen /hpf (None Seen)
[2024-06-02 20:47] LABS: Urine Blood Negative /uL (Negative); Urine Clarity Clear (Clear); Urine Color Yellow (Yellow); Urine Mucus MODERATE (None Seen); Urine Protein, UAD 1+ (Negative); Urine Specific Gravity 1.033 (1.001-1.035); Urine Squamous Epithelial Cell FEW /hpf (<5); Urine Urobilinogen 2 mg/dL (Negative); Urine WBC 7 /hpf (0 - 3)
[2024-06-02] MEDS ORDERED: DEXTROSE (50%) 50ML SYRG IV PRN (23:15)
[2024-06-02] MEDS ORDERED: SODIUM CHLORIDE 0.9% 1,000 ML IV ONE (23:15)
[2024-06-02] MEDS ORDERED: ACETAMINOPHEN 325 MG TAB PO PRN (23:15)
[2024-06-02] MEDS ORDERED: ONDANSETRON HCL 4 MG/2 ML VIAL IV PRN (23:15)
--- NOTE | 2024-06-02 23:33 | DVHHP2 ---
History of Present Illness Reason for Visit: Abdominal pain History of Present Illness 63-year-old male presents for evaluation of abdominal pain. Patient with a history of gastric adenocarcinoma 2nd chemotherapy treatment two weeks ago. He reports a four day history of left upper quadrant abdominal pain with associated diarrhea. Denies fever or chills. No nausea or vomiting. He distress diarrhea as watery nonbloody. Denies any other acute complaints at the moment. Past Medical History Diabetes mellitus, cancer, dyslipidemia Past Surgical History Denies Family History Noncontributory Smoke: No ALCOHOL: none Drugs: None Lives: with Family Review of Systems Review of Systems Review of systems are currently negative otherwise addressed in HPI. Allergies: Coded Allergies: NO KNOWN ALLERGIES (Unverified , 02/28/24) Medications Current Medications Medications Dose Ordered Sig/Polina Route Start Time Stop Time Status Last Admin Dose Admin Metronidazole 100 ml @ 100 mls/hr Q8HR IV 06/03/24 06:00 Ceftriaxone Sodium 50 ml @ 100 mls/hr DAILY@2100 IV 06/03/24 21:00 Loperamide HCl 2 mg PRN PRN PO 06/02/24 23:15 Atorvastatin Calcium 10 mg HS PO 06/03/24 22:00 Pantoprazole Sodium 40 mg BID@0600,1700 PO 06/03/24 06:00 Saccharomyces Boulardii 250 mg DAILY PO 06/03/24 10:00 Diagnostic Test (Pha) 1 strip Q6HR 06/03/24 00:00 Insulin Human Regular Q6HR SC 06/03/24 00:00 Dextrose 50 ml UD PRN IV 06/02/24 23:15 Acetaminophen/ Hydrocodone Bitart 1 tab Q4HP PRN PO 06/02/24 23:15 Ondansetron HCl 4 mg Q4HP PRN IV 06/02/24 23:15 Acetaminophen 650 mg Q6HP PRN PO 06/02/24 23:15 Exam Vital Signs Vital Signs Date Time Temp Pulse Resp B/P (MAP) Pulse Ox O2 Delivery O2 Flow Rate FiO2 06/02/24 16:36 97.9 106 17 120/81 (94) 100 Exam Gen: 63-year-old male in mild distress Skin: Warm, dry, normal color and texture, no rash. HEENT: Normocephalic atraumatic, mucous membranes moist and pink. Neck: Cervical and supraclavicular nodes normal without enlargement, trachea is midline, thyroid gland is normal without masses. Pulmonary: Clear to auscultation and percussion bilaterally. Cardiac: Regular rate and rhythm. No murmur Abdomen: Soft, nontender, nondistended, bowel sounds present all 4 quadrants, no guarding, no rigidity, no organomegaly. Extremities: No cyanosis, clubbing, no edema Neuro: Cranial nerves II through XII grossly intact, normal affect and speech, no focal motor deficits. Labs/Xrays ORDERING PHYSICIAN: TAMMI PARDO MD PROCEDURE(s): ABPL - CT AB PEL WO CON-NO ORAL OR IV REASON: pain to luq ORDER NUMBER(s): [id number], ACCESSION NUMBER(s): [id number] Procedure: CT CT AB PEL WO CON-NO ORAL OR IV 06/02/2024 05:06 PM Indication: pain to luq Comparison Study: CT scan dated 04/1924 Technique: Axial images were obtained and reformatted in coronal and sagittal planes. All CT scans at this medical facility are performed using dose modulation techniques as appropriate to a performed exam including the following: Automated exposure control was utilized; adjustment of the MA and/or KV according to patient size; and use of iterative reconstruction technique. CT Dose: CTDI volume is 5.5 mGy. Dose-length product is 285 mGy*cm FINDINGS: Lower Chest: Unremarkable. Hepatobiliary: Hepatic steatosis. Spleen: Unremarkable. Pancreas: Unremarkable. Adrenal Glands: Unremarkable. tract: The kidneys are normal in size bilaterally without hydronephrosis or nephrolithiasis. The urinary bladder is unremarkable. GI tract: There is redemonstration of a large ulcerated gastric fundus mass extending to the splenic hilum. No free intraperitoneal air or fluid noted. Circumferential mural thickening of the descending, sigmoid colon and rectum with adjacent fat stranding. Liquid stool seen in the lumen of the rectum. The large bowel is unremarkable. The appendix is normal. Lymphatics: Redemonstration of prominent perigastric lymph nodes along the gastric lesser curvature measuring up to 3.8 cm. Vasculature: The abdominal aorta is normal in in caliber. Pelvic Organs: Unremarkable Bones/soft tissues: No acute osseous abnormality. Multilevel degenerative changes of the lumbar spine noted. Other: None. IMPRESSION: 1. Suboptimal CT scan without IV and oral contrast. 2. There is interval improvement of proctocolitis but mild residual inflammation still present. Liquid stool in the lumen of the sigmoid colon and rectum suggesting diarrheal state. 3. Stable ulcerating large gastric fundus mass with contained perforation and extension to the splenic hilum with no free fluid or air in the abdomen or pelvis. Metastatic perigastric lymph nodes are again noted. 4. Hepatic steatosis. Labs Test 06/02/24 21:28 06/02/24 20:35 06/02/24 16:50 Range/Units Lactic Acid Level 1.3 0.4-2.0 mmol/L Urine Color Yellow Yellow Urine Clarity Clear Clear Urine pH 6.0 5.0-9.0 Urine Specific [place] 1.033 1.001-1.035 Urine Protein 1+ H Negative Urine Ketones Negative Negative Urine Blood Negative Negative /uL Urine Nitrite Negative Negative Urine Bilirubin Negative Negative Urine Urobilinogen 2 H Negative mg/dL Urine Leukocyte Esterase Negative Negative /uL Urine RBC 1 0 - 3 /hpf Urine WBC 7 0 - 3 /hpf Urine Squamous Epithelial Cells Few <5 /hpf Urine Bacteria None seen None Seen /hpf Urine Mucus Moderate None Seen Urine Glucose Normal Normal mg/dL White Blood Count 32.1 *H 4.4-10.8 10^3/uL Red Blood Count 4.61 4.5-5.90 10^6/uL Hemoglobin 11.0 L 13.5-17.5 g/dL Hematocrit 34.7 L 41.0-53.0 % Mean Corpuscular Volume 75.3 L 80.0-100.0 fL Mean Corpuscular Hemoglobin 23.9 L 28.0-32.0 pg Mean Corpuscular Hemoglobin Concent 31.8 L 32.0-36.0 g/dL Red Cell Distribution Width 17.9 H 11.8-14.3 % Platelet Count 244 140-450 10^3/uL Mean Platelet Volume 7.5 6.9-10.8 fL Neutrophils (%) (Auto) 37.0-80.0 % Lymphocytes (%) (Auto) 10.0-50.0 % Monocytes (%) (Auto) 0.0-12.0 % Basophils (%) (Auto) 0.0-2.0 % Neutrophils # (Auto) 1.6-8.6 10 ^3/uL Lymphocytes # (Auto) 0.4-5.4 10 ^3/uL Monocytes # (Auto) 0-1.3 10 ^3/uL Differential Total Cells Counted 100.0 100 Neutrophils % (Manual) 79 37.0-80.0 Band Neutrophils % (Manual) 9 Lymphocytes % (Manual) 7 L 10.0-50.0 Monocytes % (Manual) 5 0-12 Eosinophils % (Manual) 0 0-7 Basophils % (Manual) 0 0.0-2.0 Metamyelocytes % (manual) 0 Myelocytes % (Manual) 0 Promyelocytes % (Manual) 0 Blast Cells % (Manual) 0 Reactive Lymphocytes 0 Platelet Estimate Adequate Hypochromasia (manual) Slight Microcytosis Slight Prothrombin Time 11.3 9.3-11.8 sec Prothrombin Time INR 1.07 0.9-1.15 Activated Partial Thromboplast Time 26.6 24.5-34.5 SEC Sodium Level 131 L 136-145 mmol/L Potassium Level 3.9 3.5-5.1 mmol/L Chloride Level 99 98-107 mmol/L Carbon Dioxide Level 27 20-31 mmol/L Anion Gap 5 5-15 Blood Urea Nitrogen 22 9-23 mg/dL Creatinine 0.98 0.700-1.30 mg/dL Glomerular Filtration Rate Calc 88 >90 mL/min BUN/Creatinine Ratio 22.4 H 10.0-20.0 Serum Glucose 151 H 74-106 mg/dL Calcium Level 8.1 L 8.7-10.4 mg/dL Assessment/Plan Assessment/Plan Assessment Acute abdominal pain Colitis Gastric adenocarcinoma status post chemotherapy Leukocytosis Pancytopenia Plan Admit the patient to [facility] to the hospitalist Felicity/Otto Stool bacterial culture pending Resume home medications Continue treatment per orders. Plan discussed with: Patient My Orders Orders - TRICIA RASHID [facility] Procedure Category Date Status Time Stool Bacterial MARANDA 06/02/24 Logged Culture 23:03 Clostridium Difficile MARANDA 06/02/24 Logged Toxin 23:03 Metronidazole PHA 06/03/24 In Process 500mg/100ml (Flagyl 06:00 Metronidazole PHA 06/02/24 In Process 500mg/100ml (Flagyl 23:15 Ceftriaxone 1gm/50ml PHA 06/03/24 In Process D5w (Rocephin) 21:00 Ceftriaxone 1gm/50ml PHA 06/02/24 In Process D5w (Rocephin) 23:15 Loperamide Capsule PHA 06/02/24 In Process (Imodium Capsule) 23:15 Atorvastatin (Lipitor) PHA 06/03/24 In Process 22:00 Pantoprazole Tablet PHA 06/03/24 In Process (Protonix Tablet) 06:00 Florastor (S. PHA 06/03/24 In Process Boulardii) (Florastor) 10:00 Glucose Blood PHA 06/03/24 In Process (Accu-Chek Comfort 00:00 Insulin R (Human) PHA 06/03/24 In Process (Insulin R) 00:00 Dextrose 50% Syringe PHA 06/02/24 In Process 23:15 Admit ADMIT 06/02/24 Transmitted 23:03 Hydrocodone-Acet PHA 06/02/24 In Process 5/325mg Tab ([place] 23:15 Ondansetron Hcl PHA 06/02/24 In Process (Zofran) 23:15 Complete Blood Count LAB 06/03/24 Verified 04:00 Comprehensive LAB 06/03/24 Verified Metabolic Panel 04:00 Condition: Stable RADHA 06/02/24 In Process 23:03 Acetaminophen Tablet PHA 06/02/24 In Process (Tylenol Tablet) 23:15 Bedrest With Bathroom RADHA 06/02/24 In Process Privileg 23:03 Consistent DIET 06/03/24 Transmitted Carb(Ccho)Diabetes Breakfast Sodium Chloride 0.9% PHA 06/02/24 In Process 23:15 Date of Service: Jun 02, 2024 Billing Provider: TRICIA RASHID Common Visit Codes: [id number] INP/OBS CARE (HIGH) TRICIA RASHID Jun 02, 2024 23:32
[2024-06-03] VITALS (7 sets, daily range): BP systolic 118–129; BP diastolic 72–78; PULSE 73–100; RESP 16–20; TEMP 97.5–98.6; O2SAT 95–100
[2024-06-03] MEDS: HYDROcodone-ACET 5/325MG TAB PO PRN (01:40)
[2024-06-03] MEDS: LOPERAMIDE HCL 2 MG CAP/TAB PO ONE (01:42)
[2024-06-03] MEDS: ACCU-CHEK COMFORT CURVE STRIP VI SCH (01:45)
[2024-06-03] MEDS: InsuLIN REG 1unit/0.01ml Soln (100units/ml) SC SCH (01:49)
[2024-06-03] MEDS: cefTRIAXone 1GM/50ML D5W 50 ML IV ONE (03:20)
[2024-06-03] MEDS: metroNIDAZOLE 500MG/100ML 100 ML IV ONE (04:22)
[2024-06-03] MEDS: SODIUM CHLORIDE 0.9% 500 ML IV ONE (04:22)
[2024-06-03] MEDS: PANTOPRAZOLE 40 MG TAB PO SCH (06:34)
[2024-06-03] MEDS: SODIUM CHLORIDE 0.9% 1,000 ML IV SCH (06:34)
[2024-06-03] MEDS: metroNIDAZOLE 500MG/100ML 100 ML IV SCH (06:34)
[2024-06-03 07:20] LABS: Hemoglobin 9.8 g/dL (13.5-17.5); Mean Corpuscular Hemoglobin 23.9 pg (28.0-32.0); Platelet Count (auto) 199 10^3/uL (140-450)
[2024-06-03 07:21] LABS: Hematocrit 30.7 % (41.0-53.0); Mean Corpuscular Hgb Conc. 31.9 g/dL (32.0-36.0); Mean Corpuscular Volume 74.8 fL (80.0-100.0); Red Cell Distribution Width 17.7 % (11.8-14.3); White Blood Cell 27.4 10^3/uL (4.4-10.8)
[2024-06-03 07:24] LABS: Basophils % (manual) 0 (0.0-2.0); Blast Cells 0; Eosinophils % (manual) 0 (0-7); Metamyelocytes % 0; Myelocytes % 0; Promyelocytes % 0; Reactive Lymphocytes 0
[2024-06-03 07:32] LABS: Alanine Aminotransferase 20 U/L (7-40); Anion Gap 5 (5-15); BUN/Creatinine Ratio 25.8 (10.0-20.0); Carbon Dioxide 28 mmol/L (20-31); Chloride 99 mmol/L (98-107); Glucose 82 mg/dL (74-106); Potassium 3.6 mmol/L (3.5-5.1)
[2024-06-03 07:33] LABS: Albumin 2.7 g/dL (3.2-4.8); Alkaline Phosphatase 140 U/L (46-116); Bilirubin, Total 0.3 mg/dL (0.2-1.0); Blood Urea Nitrogen 23 mg/dL (9-23); Calcium 7.6 mg/dL (8.7-10.4); Sodium 132 mmol/L (136-145)
[2024-06-03 08:09] LABS: Aspartate Aminotransferase 41 U/L (13-40)
[2024-06-03 08:51] LABS: Blood Alcohol < 3.0 mg/dL (<10)
[2024-06-03 09:08] LABS: Amphetamine Screen, Urine Neg (NEGATIVE); Barbiturate Scree,Urine Neg (NEGATIVE); Benzodiazephine Screen, Urine Neg (NEGATIVE); Cannabinoid Screen, Urine Neg (NEGATIVE); Cocaine Screen, Urine Neg (NEGATIVE); Opiate Scree,Urine Neg (NEGATIVE); Phencyclidine Screen, Urine Neg (NEGATIVE)
[2024-06-03] MEDS: FLORASTOR (S. BOULARDII) 250 MG CAP PO SCH (09:38)
[2024-06-03 10:21] LABS: Band Neutrophils % (manual) 4; Lymphocytes % (manual) 10 (10.0-50.0); Monocytes % (manual) 14 (0-12); Platelet Estimate Adequate
[2024-06-03] MEDS: LOPERAMIDE HCL 2 MG CAP/TAB PO PRN (11:46)
--- NOTE | 2024-06-03 13:10 | DVHDSRES ---
Discharge Summary Date of Admission Resident Creating Document: BROOKS FALCON RESIDENT Jun 02, 2024 at 23:03 Date of Discharge: Jun 03, 2024 Admitting Diagnosis Acute gastroenteritis Labs/Diagnostic Data: Laboratory Results Test 06/03/24 06:40 06/02/24 21:28 06/02/24 20:35 06/02/24 16:50 White Blood Count 27.4 10^3/uL (4.4-10.8) Red Blood Count 4.10 10^6/uL (4.5-5.90) Hemoglobin 9.8 g/dL (13.5-17.5) Hematocrit 30.7 % (41.0-53.0) Mean Corpuscular Volume 74.8 fL (80.0-100.0) Mean Corpuscular Hemoglobin 23.9 pg (28.0-32.0) Mean Corpuscular Hemoglobin Concent 31.9 g/dL (32.0-36.0) Red Cell Distribution Width 17.7 % (11.8-14.3) Platelet Count 199 10^3/uL (140-450) Mean Platelet Volume 7.3 fL (6.9-10.8) Neutrophils (%) (Auto) % (37.0-80.0) Lymphocytes (%) (Auto) % (10.0-50.0) Monocytes (%) (Auto) % (0.0-12.0) Basophils (%) (Auto) % (0.0-2.0) Neutrophils # (Auto) 10 ^3/uL (1.6-8.6) Lymphocytes # (Auto) 10 ^3/uL (0.4-5.4) Monocytes # (Auto) 10 ^3/uL (0-1.3) Differential Total Cells Counted 100.0 (100) Neutrophils % (Manual) 72 (37.0-80.0) Band Neutrophils % (Manual) 4 Lymphocytes % (Manual) 10 (10.0-50.0) Monocytes % (Manual) 14 (0-12) Eosinophils % (Manual) 0 (0-7) Basophils % (Manual) 0 (0.0-2.0) Metamyelocytes % (manual) 0 Myelocytes % (Manual) 0 Promyelocytes % (Manual) 0 Blast Cells % (Manual) 0 Reactive Lymphocytes 0 Platelet Estimate Adequate Sodium Level 132 mmol/L (136-145) Potassium Level 3.6 mmol/L (3.5-5.1) Chloride Level 99 mmol/L (98-107) Carbon Dioxide Level 28 mmol/L (20-31) Anion Gap 5 (5-15) Blood Urea Nitrogen 23 mg/dL (9-23) Creatinine 0.89 mg/dL (0.700-1.30) Glomerular Filtration Rate Calc 98 mL/min (>90) BUN/Creatinine Ratio 25.8 (10.0-20.0) Serum Glucose 82 mg/dL (74-106) Hemoglobin A1c 6.7 % A1C (<5.7) Calcium Level 7.6 mg/dL (8.7-10.4) Magnesium Level 2.0 mg/dL (1.6-2.6) Total Bilirubin 0.3 mg/dL (0.2-1.0) Aspartate Amino Transferase (AST) 41 U/L (13-40) Alanine Aminotransferase (ALT) 20 U/L (7-40) Alkaline Phosphatase 140 U/L (46-116) Total Protein 5.0 g/dL (5.7-8.2) Albumin 2.7 g/dL (3.2-4.8) Thyroid Stimulating Hormone (TSH) 2.57 uIU/mL (0.55-4.78) Plasma/Serum Blood Alcohol < 3.0 mg/dL (<10) Lactic Acid Level 1.3 mmol/L (0.4-2.0) Urine Color Yellow (Yellow) Urine Clarity Clear (Clear) Urine pH 6.0 (5.0-9.0) Urine Specific [place] 1.033 (1.001-1.035) Urine Protein 1+ (Negative) Urine Ketones Negative (Negative) Urine Blood Negative /uL (Negative) Urine Nitrite Negative (Negative) Urine Bilirubin Negative (Negative) Urine Urobilinogen 2 mg/dL (Negative) Urine Leukocyte Esterase Negative /uL (Negative) Urine RBC 1 /hpf (0 - 3) Urine WBC 7 /hpf (0 - 3) Urine Squamous Epithelial Cells Few /hpf (<5) Urine Bacteria None seen /hpf (None Seen) Urine Mucus Moderate (None Seen) Urine Glucose Normal mg/dL (Normal) Urine Opiates Screen Neg (NEGATIVE) Urine Fentanyl Screen Neg (NEGATIVE) Urine Barbiturates Screen Neg (NEGATIVE) Urine Phencyclidine Screen Neg (NEGATIVE) Urine Amphetamines Screen Neg (NEGATIVE) Urine Benzodiazepines Screen Neg (NEGATIVE) Urine Cocaine Screen Neg (NEGATIVE) Urine Cannabinoids Screen Neg (NEGATIVE) Hypochromasia (manual) Slight Microcytosis Slight Prothrombin Time 11.3 sec (9.3-11.8) Prothrombin Time INR 1.07 (0.9-1.15) Activated Partial Thromboplast Time 26.6 SEC (24.5-34.5) Other Laboratory Tests 06/03/24 06:40 Brief Hx & Hospital Course: Patient is 63 years old male with a past medical history of gastric adenocarcinoma, on chemotherapy, diabetes mellitus type 2, hypertension, hyperlipidemia came with a complaint of loose motion that has been going on for last 4 days. Patient's loose motion was watery, no blood. Loose motion was associated with cramping abdominal pain /10. Patient denied any fever, dysuria, acute joint pain or swelling. Patient is on chemotherapy for gastric adenocarcinoma, last 1 was on May 22 2024. Next 1 is scheduled in coming on 0 02/19. Patient with leukocytosis likely due to malignancy, no fever. Patient was also anemic likely due to malignancy with microcytic hypochromic anemia. Patient was treated conservatively during hospitalization and patient's symptoms improved. Patient was tolerating oral diet well. Patient was adamant about going home today. Patient was advised to drink plenty of nondiabetic electrolyte containing fluids to avoid dehydration and to take loperamide 2 mg q.6h p.r.n. if loose motion keeps going on. Patient verbalized understanding. Patient was also advised to follow up with the primary care physician in 1 week and to follow up with the oncologist as per schedule for chemotherapy and other follow up. General examination- awake, alert, oriented, conversant HEENT- PEERLA, no acute nasal discharge Cardiovascular- S1-S2 audible, rate and rhythm regular, no murmur Respiratory- CTAB, no wheeze or rhonchi Gastrointestinal-nontender, bowel sound+. Nondistended Musculoskeletal-no acute joint swelling or tenderness or redness# Lower extremity- no leg edema Neurological- cranial nerves intact, no acute dysarthria or dysphagia Psychiatry- denies depression or SI or HI Skin- no acute rash or purpura Operations or Procedures DIAGNOSTIC IMAGING Diagnostic Imaging Report : [id number] Signed PATIENT: LORETA ELENA ACCT: [id number] UNIT: [id number] : 1960 LOC: ER ROOM / BED: / AGE / SEX: 63 / M ADM STATUS: REG ER SERVICE 1623 ORDERING PHYSICIAN: TAMMI PARDO MD PROCEDURE(s): ABPL - CT AB PEL WO CON-NO ORAL OR IV REASON: pain to luq ORDER NUMBER(s): [id number], ACCESSION NUMBER(s): [id number] Procedure: CT CT AB PEL WO CON-NO ORAL OR IV 06/02/2024 05:06 PM Indication: pain to luq Comparison Study: CT scan dated 04/1924 Technique: Axial images were obtained and reformatted in coronal and sagittal planes. All CT scans at this medical facility are performed using dose modulation techniques as appropriate to a performed exam including the following: Automated exposure control was utilized; adjustment of the MA and/or KV according to patient size; and use of iterative reconstruction technique. CT Dose: CTDI volume is 5.5 mGy. Dose-length product is 285 mGy*cm FINDINGS: Lower Chest: Unremarkable. Hepatobiliary: Hepatic steatosis. Spleen: Unremarkable. Pancreas: Unremarkable. Adrenal Glands: Unremarkable. tract: The kidneys are normal in size bilaterally without hydronephrosis or nephrolithiasis. The urinary bladder is unremarkable. GI tract: There is redemonstration of a large ulcerated gastric fundus mass extending to the splenic hilum. No free intraperitoneal air or fluid noted. Circumferential mural thickening of the descending, sigmoid colon and rectum with adjacent fat stranding. Liquid stool seen in the lumen of the rectum. The large bowel is unremarkable. The appendix is normal. Lymphatics: Redemonstration of prominent perigastric lymph nodes along the gastric lesser curvature measuring up to 3.8 cm. Vasculature: The abdominal aorta is normal in in caliber. Pelvic Organs: Unremarkable Bones/soft tissues: No acute osseous abnormality. Multilevel degenerative changes of the lumbar spine noted. Other: None. IMPRESSION: 1. Suboptimal CT scan without IV and oral contrast. 2. There is interval improvement of proctocolitis but mild residual inflammation still present. Liquid stool in the lumen of the sigmoid colon and rectum suggesting diarrheal state. 3. Stable ulcerating large gastric fundus mass with contained perforation and extension to the splenic hilum with no free fluid or air in the abdomen or pelvis. Metastatic perigastric lymph nodes are again noted. 4. Hepatic steatosis. ATED BY: DEEPA REYES MD DICTATED DATE/TIME: 06/02/24 1728 SIGNED BY: DEEPA REYES MD SIGNED DATE/TIME: 06/02/248 CC: Condition at Discharge: Stable Final Diagnosis/Problems List Acute gastroenteritis/loose motion likely due to gastric adenocarcinoma Gastric adenocarcinoma on chemotherapy Moderate protein malnutrition Type 2 diabetes mellitus Hypertensive heart Disease Dyslipidemia Moderate anemia, microcytic Hypochromic, almost stable Discharge Disposition: Home Discharge Instruct/Medications Diet: Consistent carbohydrate, Cardiac 2g Na,low cholest Activity: Light activity Follow Up/Referral: Please follow up with your primary care physician in 1 week Also follow up with your oncologist as per schedule for chemotherapy Please avoid dehydration Please drink nondiabetic Gatorade or other electrolyte containing fluids to avoid dehydration Medications: Loperamide 2 mg q.6h p.r.n. if loose motion Discharge Statement: "Patient was advised to return to the ER or call 911 if any headaches, dizziness, shortness of breath, chest pain, abdominal pain, bleeding, fevers, or worsening of medical condition. Patient was counseled about treatment plan, medications, possible side effects, patientverbalized understanding. All questions were answered to the best of my ability. This discharge took greater then 30 minutes in planning, reviewing documentation, counseling the patient, and discussing with other team members." ASSESSMENT ASSESSMENT Assessment Acute gastroenteritis Date of Service: Jun 03, 2024 Billing Provider: GREG CANTU MD Common Visit Codes: 33823-LZD/OBS DISCH DAY >30min BROOKS FALCON RESIDENT Jun 03, 2024 13:10 GREG CANTU MD Jun 03, 2024 20:50
[2024-06-03] MEDS ORDERED: cefTRIAXone 1GM/50ML D5W 50 ML IV SCH (21:00)
[2024-06-03] MEDS ORDERED: ATORVASTATIN 20 MG TAB PO SCH (22:00)
== END 2024-06-03 14:25 | disposition home or self-care (01) | DRG 249 ==
LOC: ER 15:44 → OVERFLOW 23:03
PROVIDERS: ADMIT Internal Medicine Geriatric Medicine; ATTEND Emergency Medicine
DX: K52.9 Noninfective gastroenteritis and colitis, unspecified (principal); C16.9 Malignant neoplasm of stomach, unspecified; E44.0 Moderate protein-calorie malnutrition; D64.9 Anemia, unspecified; E78.5 Hyperlipidemia, unspecified; E11.9 Type 2 diabetes mellitus without complications; I10 Essential (primary) hypertension; Z68.24 Body mass index [BMI] 24.0-24.9, adult; Z79.899 Other long term (current) drug therapy; Z85.028 Personal history of other malignant neoplasm of stomach; Z87.891 Personal history of nicotine dependence; Z92.21 Personal history of antineoplastic chemotherapy; Z79.84 Long term (current) use of oral hypoglycemic drugs
CPT/HCPCS: 36415; 74176; 80048; 80053; 80307; 80320; 81001; 82962; 83036; 83605; 83735; 84443; 85007; 85027; 85610; 85730; 86850; 86870; 86880; 86900; 86901; 86906; 87040; G0378; J3490

== ENCOUNTER 2024-06-19 13:34 | Inpatient (IN) | payer MEDICAID ==
[~2024-06-19] VITALS: Ht 165.1 cm; Wt 66.7 kg
--- NOTE | 2024-06-19 13:44 | ED.PDOC ---
HPI (NEURO) HPI Comments 63y M who presents to the ED for chief complaint of generalized weakness. Per EMS, pt has history of stomach cancer (diagnosed February 2024) and states he is currently receiving chemo and states after last chemo appt, last Sunday, pt has been having diarrhea with associated abdominal pain for the past 5 days. Pt states he has also been having weakness, malaise and dizziness that has been getting progressively worse since and called EMS to the scene. Pt in the ED, also has noted bruise on the L side of abdomen. Pt is alert and oriented x 4 and able to answer all questions. Pt otherwise denies any other symptoms at this time. Chief Complaint: General Weakness Time Seen by MD: 13:41 Primary Care Provider: geovanny Palomo Notes: Pipe Chipper Notes Information Source: Patient, Emergency Med Personnel Mode of Arrival: EMS Brought in by: EMS Severity: Moderate Dizziness/Weakness Severity: Unable to do activities Headache Severity: Moderate Timing: Days Duration: Since onset Prehospital treatment: None Weakness Location: Generalized Onset: At rest Circumstances: Spontaneous Symptoms: Weakness History of: Cancer Modifying factors: Nothing Associated Signs and Symptoms: Diarrhea, Weakness Past Medical History PAST MEDICAL HISTORY: Anemia, Cancer, DM, High Lipids Surgical History (Other): cataracts, sciatica surgery Family History Family History: Reviewed,noncontributory to illness Social History Smoker: Quit Greater Than 1 Year Alcohol: Denies ETOH Use Drugs: Denies Drug Use Lives In: Home Constitutional: reports: malaise, weakness; denies: chills, diaphoresis, fatigue, fever, sweats, others EENTM: denies: blurred vision, double vision, ear bleeding, ear discharge, ear drainage, ear pain, ear ringing, eye pain, eye redness, hearing loss, mouth pain, mouth swelling, nasal discharge, nose bleeding, nose congestion, nose pain, photophobia, tearing, throat pain, throat swelling, voice changes, others Respiratory: denies: cough, hemoptysis, orthopnea, SOB at rest, shortness of breath, SOB with excertion, stridor, wheezing, others Cardiovascular: denies: chest pain, dizzy spells, diaphoresis, Dyspnea on exertion, edema, irregular heart beat, left arm pain, lightheadedness, palpitations, PND, syncope, others Gastrointestinal: reports: abdominal pain, diarrhea; denies: abdomen distended, blood streaked bowels, constipated, dysphagia, difficulty swallowing, hematemesis, melena, nausea, poor appetite, poor fluid intake, rectal bleeding, rectal pain, vomiting, others Genitourinary: denies: burning, dysuria, flank pain, frequency, hematuria, incontinence, penile discharge, penile sore, pain, testicle pain, testicle swelling, urgency, others Neurological: denies: dizziness, fainting, headache, left sided numbness, left sided weakness, numbness, paresthesia, pre-existing deficit, right sided numbness, right sided weakness, seizure, speech problems, tingling, tremors, weakness, others Musculoskeletal: denies: back pain, gout, joint pain, joint swelling, muscle pain, muscle stiffness, neck pain, others Integumetry: denies: bruises, change in color, change in hair/nails, dryness, laceration, lesions, lumps, rash, wounds, others Allergic/Immunocompromised: denies: Difficulty Healing, Frequent Infections, Hives, Itching, others Hematologic/Lymphatic: denies: anemia, blood clots, easy bleeding, easy bruising, swollen glands, others Endocrine: denies: excessive hunger, excessive sweating, excessive thirst, excessive urination, flushing, intolerance to cold, intolerance to heat, unexplained weight gain, unexplained weight loss, others Psychiatric: denies: anxiety, bipolar disorder, depression, hopeless, panic disorder, schizophrenia, sleepless, suicidal, others All Other Systems: Reviewed and Negative Physical Exam General Appearance: Moderate Distress HEENT: Normal ENT Inspection, Pharynx Normal, TMs Normal Neck: Full Range of Motion, Non-Tender, Normal, Normal Inspection Respiratory: Chest Non-Tender, Lungs Clear, No Accessory Muscle Use, No Respiratory Distress, Normal Breath Sounds Cardiovascular: No Edema, No JVD, No Murmur, No Gallop, Normal Peripheral Pulses, Regular Rate/Rhythm Breast Exam: Deferred Gastrointestinal: Diffuse, No Organomegaly, No Pulsatile Mass, Normal Bowel Sounds, Soft, Tenderness Genitalia: Deferred Pelvic: Deferred Rectal: Deferred Extremities: No calf tenderness, Normal capillary refill, Normal inspection, Normal range of motion, Non-tender, No pedal edema Musculoskeletal : Apperance: Normal Neurologic: Alert, brush worker II-XII nml as Tested, No Motor Deficits, Normal Affect, Normal Mood, No Sensory Deficits Cerebellar Function: Normal Reflexes: Normal Skin: Dry, Normal Color, Warm Lymphatic: No Adenopathy EKG EKG : Pulse Rate (adult): [address] [place]: Normal Cardiac Rhythm: ST Block: None Hypertrophy: None ST: Normal Was a procedure done? Was a procedure done?: No Differential Diagnosis (SZ) Seizure: N/A General Weakness: Dehydration, Electrolyte imbalance, Encephalopathy, Hypoglycemia, Hypotension, Other (enteritis, ) X-Ray, Labs, Meds, VS Vital Signs Date Time Temp Pulse Resp B/P (MAP) Pulse Ox O2 Delivery O2 Flow Rate FiO2 06/19/24 17:27 88 18 99 Room Air* 0 21 06/19/24 17:00 91 14 142/76 (98) 99 06/19/24 14:34 97.8 88 18 140/78 (98) 99 97.8 06/19/24 13:44 101 06/19/24 13:39 98.5 96 16 147/86 (106) 97 06/19/24 13:34 101 Lab Test 06/19/24 18:00 06/19/24 13:54 Range/Units Urine Color Yellow Yellow Urine Clarity Turbid H Clear Urine pH 6.0 5.0-9.0 Urine Specific [place] 1.026 1.001-1.035 Urine Protein 1+ H Negative Urine Ketones Negative Negative Urine Blood Negative Negative /uL Urine Nitrite Negative Negative Urine Bilirubin Negative Negative Urine Urobilinogen Normal Negative mg/dL Urine Leukocyte Esterase Negative Negative /uL Urine RBC 1 0 - 3 /hpf Urine Microscopic WBC 3 0-3 /HPF Urine Squamous Epithelial Cells Few <5 /hpf Urine Bacteria None seen None Seen /hpf Urine Hyaline Casts Few 0 - 2 /lpf Urine Mucus Moderate None Seen Urine Glucose Trace Normal mg/dL White Blood Count 6.5 4.4-10.8 10^3/uL Red Blood Count 3.90 L 4.5-5.90 10^6/uL Hemoglobin 9.3 L 13.5-17.5 g/dL Hematocrit 29.2 L 41.0-53.0 % Mean Corpuscular Volume 74.8 L 80.0-100.0 fL Mean Corpuscular Hemoglobin 23.8 L 28.0-32.0 pg Mean Corpuscular Hemoglobin Concent 31.8 L 32.0-36.0 g/dL Red Cell Distribution Width 18.5 H 11.8-14.3 % Platelet Count 126 L 140-450 10^3/uL Mean Platelet Volume 8.0 6.9-10.8 fL Neutrophils (%) (Auto) 37.0-80.0 % Lymphocytes (%) (Auto) 10.0-50.0 % Monocytes (%) (Auto) 0.0-12.0 % Basophils (%) (Auto) 0.0-2.0 % Neutrophils # (Auto) 1.6-8.6 10 ^3/uL Lymphocytes # (Auto) 0.4-5.4 10 ^3/uL Monocytes # (Auto) 0-1.3 10 ^3/uL Differential Total Cells Counted 100.0 100 Neutrophils % (Manual) 56 37.0-80.0 Band Neutrophils % (Manual) 10 Lymphocytes % (Manual) 16 10.0-50.0 Monocytes % (Manual) 14 H 0-12 Eosinophils % (Manual) 0 0-7 Basophils % (Manual) 0 0.0-2.0 Metamyelocytes % (manual) 4 Myelocytes % (Manual) 0 Promyelocytes % (Manual) 0 Blast Cells % (Manual) 0 Reactive Lymphocytes 0 Platelet Estimate Decreased Hypochromasia (manual) Moderate Microcytosis Moderate Sodium Level 134 L 136-145 mmol/L Potassium Level 3.5 3.5-5.1 mmol/L Chloride Level 103 98-107 mmol/L Carbon Dioxide Level 27 20-31 mmol/L Anion Gap 4 L 5-15 Blood Urea Nitrogen 11 9-23 mg/dL Creatinine 0.73 0.700-1.30 mg/dL Glomerular Filtration Rate Calc 104 >90 mL/min BUN/Creatinine Ratio 15.1 10.0-20.0 Serum Glucose 169 H 74-106 mg/dL Calcium Level 7.5 L 8.7-10.4 mg/dL Total Bilirubin 0.3 0.2-1.0 mg/dL Aspartate Amino Transferase (AST) 34 13-40 U/L Alanine Aminotransferase (ALT) 26 7-40 U/L Alkaline Phosphatase 121 H 46-116 U/L Total Protein 4.7 L 5.7-8.2 g/dL Albumin 2.8 L 3.2-4.8 g/dL Current Medications Medications (Trade) Dose Ordered Sig/Polina Route Start Time Stop Time Status Last Admin Sodium Chloride 500 ml @ 500 mls/hr Q1H ONCE IV 06/19/24 14:00 06/19/24 14:59 DC 06/19/24 14:30 Exam: CT CT AB PEL WO CON-NO ORAL OR IV 1. Evaluation is limited without intravenous contrast. Findings are again highly suggestive a gastric malignancy with ulceration. Mass measures up to 83 mm. Multiple enlarged gastrohepatic lymph nodes likely represent metastatic disease. Diffuse abnormal appearance of the colon from the transverse colon to the rectum. Colitis or underlying colonic malignancy is not excluded. Clinical correlation and continued follow-up is recommended. The patient's CBC shows anemia with a hemoglobin of 9.3 and a hematocrit that has also decreased The platelets are 126 indicating thrombocytopenia The urine test is negative The patient was being admitted at this time Images Reviewed?: Images reviewed and evaluated by me Time of 1ST Reevaluation: 14:10 Reevaluation 1ST: Unchanged Patient Education/Counseling: Diagnosis, Treatment, Prognosis Family Education/Counseling: No Family Present Departure 1 Departure Time of Disposition: 18:36 Impression: Primary Impression: Generalized weakness Additional Impressions: Anemia Qualified Codes: D64.9 - Anemia, unspecified Dehydration Disposition: ADMITTED INPATIENT Admit to: Med Surg Condition: Fair Critical Care Note Critical Care Time?: No Stability Stability form required: Yes Unstable for transfer: ED Physician Assesment (Clinical assesment) Heart Score Heart Score: Heart Score Response (Comments) Value History Slightly Suspicious 0 EKG Normal 0 Age 45-64 1 Risk Factors 1 or 2 risk factors 1 Troponin N/A 0 Total 2 I personally scribed for TAMMI PARDO MD ([email or web address]) on 06/19/24 at 13:44. Electronically submitted by Erika Schmitz ([email or web address]). I personally scribed for TAMMI PARDO MD ([email or web address]) on 06/19/24 at 15:39. Electronically submitted by Erika Schmitz ([email or web address]). TAMMI PARDO MD Jun 19, 2024 13:44
[2024-06-19 14:19] LABS: Hemoglobin 9.3 g/dL (13.5-17.5); Mean Corpuscular Volume 74.8 fL (80.0-100.0)
[2024-06-19 14:21] LABS: Hematocrit 29.2 % (41.0-53.0); Mean Corpuscular Hemoglobin 23.8 pg (28.0-32.0); Mean Corpuscular Hgb Conc. 31.8 g/dL (32.0-36.0); Platelet Count (auto) 126 10^3/uL (140-450); Red Cell Distribution Width 18.5 % (11.8-14.3); White Blood Cell 6.5 10^3/uL (4.4-10.8)
[2024-06-19] MEDS: SODIUM CHLORIDE 0.9% 500 ML IV ONE (14:30)
[2024-06-19 14:33] LABS: Basophils % (manual) 0 (0.0-2.0); Blast Cells 0; Eosinophils % (manual) 0 (0-7); Myelocytes % 0; Promyelocytes % 0; Reactive Lymphocytes 0
[2024-06-19 14:37] LABS: Alanine Aminotransferase 26 U/L (7-40); Anion Gap 4 (5-15); Aspartate Aminotransferase 34 U/L (13-40); BUN/Creatinine Ratio 15.1 (10.0-20.0); Blood Urea Nitrogen 11 mg/dL (9-23); Carbon Dioxide 27 mmol/L (20-31); Chloride 103 mmol/L (98-107)
[2024-06-19 14:43] LABS: Albumin 2.8 g/dL (3.2-4.8); Alkaline Phosphatase 121 U/L (46-116); Bilirubin, Total 0.3 mg/dL (0.2-1.0); Calcium 7.5 mg/dL (8.7-10.4); Glucose 169 mg/dL (74-106); Potassium 3.5 mmol/L (3.5-5.1); Sodium 134 mmol/L (136-145); Total Protein 4.7 g/dL (5.7-8.2)
--- NOTE | 2024-06-19 14:43 | DVH ---
Exam: CT CT AB PEL WO CON-NO ORAL OR IV History: pain Comparison Study: CT CT AB PEL WO CON-NO ORAL OR IV on DOS: 06/02/24, CT CT ABD PELVIS W CON-ORAL IV on DOS: 05/15/24, CT CT AB PEL WO CON-NO ORAL OR IV on DOS: 05/10/24 Technique: Multidetector spiral CT of the abdomen and pelvis was performed from lung bases to pubic symphysis. Imaging was performed without IV contrast. Axial, coronal and sagittal multiplanar reform ats were obtained from the axial data set by the technologist. Radiation dose : Abdomen/Pelvis: CTDIvol 7 mGy, DLP 442 mGy*cm. Findings: Evaluation of solid organs is limited due to lack of intravenous contrast use. Lung Bases: Mild atelectasis and ground-glass opacity in the lung bases. Liver: The liver is normal in size. No focal lesions. Gallbladder and biliary Tree: Unremarkable Spleen: Unremarkable Pancreas: The pancreas is grossly normal in appearance. Adrenal Glands: Unremarkable Kidneys: Kidneys are grossly normal without calculi or hydronephrosis. Bladder: Grossly unremarkable for degree of distention. Bowel: There is an abnormal appearance of the stomach with significant wall thickening of the fundus and a possible ulcerated mass measuring up to 83 mm. Small bowel is nondilated. There is wall thicke hosea of the transverse, descending, and rectosigmoid colon. Appendix is mildly prominent without sec ondary signs of acute appendicitis. Ascites: Trace abdominal ascites. Lymphadenopathy: Multiple enlarged gastrohepatic lymph nodes measuring up to at least 27 mm. Abdominal wall and Mesentery: Roxanne mesentery with subcentimeter mesenteric lymph nodes. Vasculature: The visualized abdominal aorta is normal in size and caliber. Evaluation of abdominal a nd pelvic vessels is limited due to lack of intravenous contrast. Pelvic Organs: Unremarkable Musculoskeletal: No aggressive focal bony lesions, acute fractures or dislocation. IMPRESSION: 1. Evaluation is limited without intravenous contrast. Findings are again highly suggestive a gastri c malignancy with ulceration. Mass measures up to 83 mm. Multiple enlarged gastrohepatic lymph nodes likely represent metastatic disease. Diffuse abnormal appearance of the colon from the transverse co [place] to the rectum. Colitis or underlying colonic malignancy is not excluded. Clinical correlation an d continued follow-up is recommended. Radiation optimization: All CT scans at this facility use at least one of these dose optimization nancie hniques: Automated exposure control mA and/or kV adjustment per patient size (includes targeted exams where dose is matched to clinical indication) or iterative reconstruction. HS:Y
[2024-06-19 15:20] LABS: Band Neutrophils % (manual) 10; Hypochromia Moderate; Lymphocytes % (manual) 16 (10.0-50.0); Metamyelocytes % 4; Monocytes % (manual) 14 (0-12); Platelet Estimate Decreased
[2024-06-19 17:27] VITALS: PULSE 88; RESP 18; O2SAT 99
[2024-06-19 18:16] LABS: Urine Bacteria None Seen /hpf (None Seen)
[2024-06-19 18:33] LABS: Urine Blood Negative /uL (Negative); Urine Clarity Turbid (Clear); Urine Color Yellow (Yellow); Urine Hyaline Cast FEW /lpf (0 - 2); Urine Mucus MODERATE (None Seen); Urine Protein, UAD 1+ (Negative); Urine Specific Gravity 1.026 (1.001-1.035); Urine Squamous Epithelial Cell FEW /hpf (<5); Urine Urobilinogen Normal (Negative); Urine WBC 3 /HPF (0-3)
[2024-06-19] MEDS: ONDANSETRON HCL 4 MG/2 ML VIAL IV ONE (21:07)
[2024-06-19] MEDS: MORPHINE SULFATE INJ 2 MG/ml SYRG IV ONE (21:09)
[2024-06-19 21:37] VITALS: PULSE 89; RESP 18; O2SAT 98
--- NOTE | 2024-06-19 22:39 | DVHHPRES ---
History of Present Illness Resident Creating Document: CRISTOBAL DEAN RESDIENT History of Present Illness This is a 63-year-old male with past medical history of gastric adenocarcinoma (on chemotherapy, followed by Dr. Dc), diabetes type 2, hypertension, hyperlipidemia, came to the hospital due to diarrhea and abdominal pain. Patient has chronic diarrhea since starting chemotherapy for the gastric adenocarcinoma but has worsened since 3 days. Diarrhea is watery, nonbloody, brown in color and almost 20 episodes per day. The patient also reports mild upper abdominal pain, generalized weakness and generalized body rashes. PMHx: gastric adenocarcinoma (on chemotherapy since 05/07/2024, followed by Dr. Dc), diabetes type 2, hypertension, hyperlipidemia Social history: Patient uses a walker for mobility, lives at home, ex-smoker, denies any other drug use Home medication: Benazepril, hydrochlorothiazide, Protonix, glipizide, ondansetron, prochlorperazine, diphenoxylate, loperamide Allergic history: Amoxicillin Review of Systems Review of Systems General: Reports generalized weakness HEENT: No headaches, visiual changes, hearing loss, tinnitus, nasal congestion and discharge, and sore throat. Cardiovascular: Denies chest pain, palpitations, dyspnea on exertion, orthopnea, or claudication. Respiratory: No cough, and wheezing. Gastrointestinal: Reports watery diarrhea and abdominal pain Genitourinary: No dysuria, hematuria, discharge, frequency, urgency, nocturia, incontinence, and urinary retention. Endocrine: No heat or cold intolerance, polydipsia, polyuria, and polyphagia. Neurological: No dizziness, extremity weakness and numbness, tremors, gait disturbance, seizures, and memory impairment. Psychiatric: Denies depression, anxiety,or insomnia. Musculoskeletal: Denies neck pain, stiffness and swelling, back pain, muscle weakness, joint pain, stiffness, swelling, or limited range of motion. Skin: No rashes, itching, skin lesion, changes in hair, nail, skin texture and breast. Hematologic/Lymphatic: Denies easy bruising, bleeding tendencies, or lymph node enlargement. Allergies: Coded Allergies: Amoxicillin (Verified Allergy, Severe, 06/03/24) Exam Vital Signs Vital Signs Date Time Temp Pulse Resp B/P (MAP) Pulse Ox O2 Delivery O2 Flow Rate FiO2 06/19/24 22:00 98.5 85 12 113/77 (89) 98 98.5 06/19/24 21:37 Room Air* 0 21 Exam General Appearance: Alert, Oriented X3, Cooperative, No acute distress HEENT: Atraumatic, PERRLA, EOMI, Mucous membrane moist/pink Respiratory: Clear to auscultation, Normal air movement Cardiovascular: Regular rate, Normal S1, Normal S2, No murmurs, no chest wall tenderness Abdominal: Mild upper abdominal tenderness Extremities: No clubbing, No cyanosis, No edema, Normal pulses, No tenderness/swelling Skin: Generalized reticular/petechial rashes on body, more on the bilateral flank and hip areas Neuro: Normal gait, Normal speech, Strength at 5/5 X4 ext, Normal tone, Sensation intact, Cranial nerves 3-12 NL, Reflexes 2+ Psych/Mental Status: Mental status NL, Mood NL Labs/Xrays Labs Test 06/19/24 18:00 06/19/24 13:54 Range/Units Urine Color Yellow Yellow Urine Clarity Turbid H Clear Urine pH 6.0 5.0-9.0 Urine Specific [place] 1.026 1.001-1.035 Urine Protein 1+ H Negative Urine Ketones Negative Negative Urine Blood Negative Negative /uL Urine Nitrite Negative Negative Urine Bilirubin Negative Negative Urine Urobilinogen Normal Negative mg/dL Urine Leukocyte Esterase Negative Negative /uL Urine RBC 1 0 - 3 /hpf Urine Microscopic WBC 3 0-3 /HPF Urine Squamous Epithelial Cells Few <5 /hpf Urine Bacteria None seen None Seen /hpf Urine Hyaline Casts Few 0 - 2 /lpf Urine Mucus Moderate None Seen Urine Glucose Trace Normal mg/dL White Blood Count 6.5 4.4-10.8 10^3/uL Red Blood Count 3.90 L 4.5-5.90 10^6/uL Hemoglobin 9.3 L 13.5-17.5 g/dL Hematocrit 29.2 L 41.0-53.0 % Mean Corpuscular Volume 74.8 L 80.0-100.0 fL Mean Corpuscular Hemoglobin 23.8 L 28.0-32.0 pg Mean Corpuscular Hemoglobin Concent 31.8 L 32.0-36.0 g/dL Red Cell Distribution Width 18.5 H 11.8-14.3 % Platelet Count 126 L 140-450 10^3/uL Mean Platelet Volume 8.0 6.9-10.8 fL Neutrophils (%) (Auto) 37.0-80.0 % Lymphocytes (%) (Auto) 10.0-50.0 % Monocytes (%) (Auto) 0.0-12.0 % Basophils (%) (Auto) 0.0-2.0 % Neutrophils # (Auto) 1.6-8.6 10 ^3/uL Lymphocytes # (Auto) 0.4-5.4 10 ^3/uL Monocytes # (Auto) 0-1.3 10 ^3/uL Differential Total Cells Counted 100.0 100 Neutrophils % (Manual) 56 37.0-80.0 Band Neutrophils % (Manual) 10 Lymphocytes % (Manual) 16 10.0-50.0 Monocytes % (Manual) 14 H 0-12 Eosinophils % (Manual) 0 0-7 Basophils % (Manual) 0 0.0-2.0 Metamyelocytes % (manual) 4 Myelocytes % (Manual) 0 Promyelocytes % (Manual) 0 Blast Cells % (Manual) 0 Reactive Lymphocytes 0 Platelet Estimate Decreased Hypochromasia (manual) Moderate Microcytosis Moderate Sodium Level 134 L 136-145 mmol/L Potassium Level 3.5 3.5-5.1 mmol/L Chloride Level 103 98-107 mmol/L Carbon Dioxide Level 27 20-31 mmol/L Anion Gap 4 L 5-15 Blood Urea Nitrogen 11 9-23 mg/dL Creatinine 0.73 0.700-1.30 mg/dL Glomerular Filtration Rate Calc 104 >90 mL/min BUN/Creatinine Ratio 15.1 10.0-20.0 Serum Glucose 169 H 74-106 mg/dL Calcium Level 7.5 L 8.7-10.4 mg/dL Total Bilirubin 0.3 0.2-1.0 mg/dL Aspartate Amino Transferase (AST) 34 13-40 U/L Alanine Aminotransferase (ALT) 26 7-40 U/L Alkaline Phosphatase 121 H 46-116 U/L Total Protein 4.7 L 5.7-8.2 g/dL Albumin 2.8 L 3.2-4.8 g/dL Assessment/Plan Assessment/Plan Possible chemotherapy-induced diarrhea Possible gastroenteritis Stomach adenocarcinoma (based on pathology report, from a biopsy on 03/03/24), likely metastasis to the perigastric lymph nodes Patient is followed by Dr. Dc, started chemotherapy on 05/07, last chemotherapy was on 06/11/2024 Upper GI endoscopy, from 03/03, shows 7-8 cm gastric mass in the fundus which was friable polypoid with central ulceration with oozing and with increased bleeding CT scan shows, gastric mass (83 mm) with multiple enlarged gastrohepatic lymph nodes likely represent metastatic disease Consult GI Stool studies, stool culture, C diff IV antibiotics ciprofloxacin and Flagyl IV normal saline Petechial rashes There are diffuse reticular petechial rashes on the body, more on bilateral flank and hip Mild Hyponatremia, monitoring Hyperchloremia, monitoring Uncontrolled diabetes mellitus Hb A1c, from 02/27 shows 7.7 Insulin regular, according to mild sliding scale Hypertension Hypertensive heart Disease Continue benazepril 20 mg daily Check vitals q.6 hours Dyslipidemia Continue atorvastatin 10 mg daily Moderate to severe protein malnutrition Albumin is 2. malnutrition consultation Moderate anemia, microcytic Hypochromic Thrombocytopenia Monitoring DIET: Full liquids DVT prophylax: Due to possible GI bleeding, anticoagulant is not indicated, SCDs GI prophylaxis: Protonix 40 mg IV b.i.d. Bowel regimen: Patient has diarrhea, no indication for laxative Code status: Full code DISPOSITION: Med/surg Patient's status and plan discussed with the patient granddaughter through the phone. Patient's plan discussed with Dr. [place]. Plan discussed with: Patient, Other (RN) My Orders Orders - CRISTOBAL DEAN Procedure Category Date Status Time Admit ADMIT 06/19/24 Transmitted 22:17 Notify Of Changes RADHA 06/19/24 In Process From Base 22:17 Stat Ekg For Chest RADHA 06/19/24 In Process Pain 22:17 Date of Service: Jun 19, 2024 Billing Provider: SALLY OVIEDO MD Common Visit Codes: [id number] INP/OBS CARE (HIGH) CRISTOBAL DEAN RESDIENT Jun 19, 2024 22:39 SALLY OVIEDO MD Jun 20, 2024 23:08
[2024-06-19] MEDS ORDERED: ONDANSETRON HCL 4 MG/2 ML VIAL IV PRN (23:15)
[2024-06-19] MEDS: InsuLIN REG 1unit/0.01ml Soln (100units/ml) SC ONE (23:45)
[2024-06-20] MEDS: DEXTROSE (50%) 50ML SYRG IV ONE
[2024-06-20 00:02] LABS: % Iron Saturation 6.5 % (20-55)
[2024-06-20] MEDS: ACCU-CHEK COMFORT CURVE STRIP VI ONE (00:08)
[2024-06-20] MEDS: LACTATED RINGER'S 1,000 ML IV SCH (00:08)
[2024-06-20] MEDS: POTASSIUM CHL 20 Meq TABLET PO ONE (00:09)
[2024-06-20] MEDS: ATORVASTATIN 20 MG TAB PO ONE (00:09)
[2024-06-20] MEDS: PANTOPRAZOLE 40 MG/10 ML VIAL INJ IV ONE (00:09)
[2024-06-20] MEDS ORDERED: DEXTROSE (50%) 50ML SYRG IV PRN (00:30)
[2024-06-20 05:52] LABS: Hemoglobin 8.5 g/dL (13.5-17.5); Platelet Count (auto) 122 10^3/uL (140-450); White Blood Cell 7.8 10^3/uL (4.4-10.8)
[2024-06-20 05:53] LABS: Hematocrit 26.7 % (41.0-53.0); Mean Corpuscular Volume 75.1 fL (80.0-100.0); Red Blood Cells 3.55 10^6/uL (4.5-5.90); Red Cell Distribution Width 18.9 % (11.8-14.3)
[2024-06-20 05:58] LABS: Basophils % (manual) 0 (0.0-2.0); Blast Cells 0; Eosinophils % (manual) 0 (0-7); Myelocytes % 0; Reactive Lymphocytes 0
[2024-06-20 06:39] LABS: Alanine Aminotransferase 21 U/L (7-40); Alkaline Phosphatase 105 U/L (46-116); Aspartate Aminotransferase 31 U/L (13-40); Carbon Dioxide 30 mmol/L (20-31); Chloride 104 mmol/L (98-107)
[2024-06-20 06:40] LABS: Anion Gap 2 (5-15); BUN/Creatinine Ratio 13.8 (10.0-20.0); Glucose 88 mg/dL (74-106); Sodium 136 mmol/L (136-145)
[2024-06-20 06:45] LABS: Albumin 2.5 g/dL (3.2-4.8); Bilirubin, Total 0.3 mg/dL (0.2-1.0); Blood Urea Nitrogen 8 mg/dL (9-23); Calcium 7.7 mg/dL (8.7-10.4); Potassium 3.5 mmol/L (3.5-5.1); Total Protein 4.3 g/dL (5.7-8.2)
[2024-06-20 08:05] VITALS: PULSE 77; RESP 16; O2SAT 100
[2024-06-20 08:31] LABS: Band Neutrophils % (manual) 5; Hypochromia Moderate; Lymphocytes % (manual) 12 (10.0-50.0); Metamyelocytes % 2; Monocytes % (manual) 12 (0-12); Promyelocytes % 1
[2024-06-20 08:32] LABS: Platelet Estimate Decreased
[2024-06-20] MEDS: PANTOPRAZOLE 40 MG/10 ML VIAL INJ IV SCH (10:48)
--- NOTE | 2024-06-20 11:44 | DVHPNRES ---
Progress Note Date Seen: Jun 20, 2024 Resident Creating Document: KIRAN FORDE RESIDENT Medical Necessity Reason Pt with a Central, PICC or Fol: No Subjective Review of Systems This is a 63-year-old male with past medical history of gastric adenocarcinoma( on chemotherapy) , diabetes mellitus, hypertension, hyperlipidemia, came to the hospital due to diarrhea and abdominal pain for 3 days prior to this admission. Patient states that diarrhea started since starting of chemotherapy for gastric adenocarcinoma but has worsened since 3 days that prompted this visit. Diarrhoea is watery, nonbloody, brown in color and almost 20 episodes per day and also associated with mild abdominal pain, generalized weakness and generalized eczematous rashes in the trunk. Patient was seen and examined on the bedside. He alert, oriented x3. Complains of 2 bowel movements since morning and mild abdominal pain. No other active complaints Constitutional: No: Fever, Chills, Sweats, Weakness, Malaise, Other Eyes: No: Pain, Vision change, Conjunctivae inflammation, Eyelid inflammation, Other, Redness ENT: No: Ear pain, Ear discharge, Nose pain, Nose discharge, Nose congestion, Mouth pain, Mouth swelling, Throat pain, Throat swelling, Other Respiratory: Shortness of breath, improving No: Cough, Dry,Wheezing, Hemoptysis, Pleuritic Pain, Sputum, Wheezing, Other Cardiovascular: No: Chest Pain, Palpitations, Orthopnea, Paroxysmal Noc. Dyspnea, Edema, Lt Headedness, Other Gastrointestinal: Abdominal Pain, Diarrhea No: Nausea, Vomiting, Constipation, Melena, Hematochezia, Other Musculoskeletal: No: other, neck pain, shoulder pain, arm pain, back pain, hand pain, leg pain, foot pain Neurological:; No: Weakness, Numbness, Incoordination, Change in speech, Confusion, Seizures Objective vital signs Vital Sign Date Time Temp Pulse Resp B/P (MAP) Pulse Ox O2 Delivery O2 Flow Rate FiO2 06/20/24 08:05 97.1 77 16 166/73 (104) 100 97.1 06/20/24 08:05 Nasal Cannula* 2 28 Total Intake and Output 06/19/24 06/19/24 06/20/24 15:00 23:00 07:00 Intake Total 500 ml Balance 500 ml medications Current Medications Medications Dose Ordered Sig/Polina Route Start Time Stop Time Status Last Admin Dose Admin Ondansetron HCl 4 mg Q4HPRN PRN IV 06/19/24 23:15 Hold Morphine Sulfate 1 mg Q4HP PRN IV 06/19/24 23:15 Pantoprazole Sodium 40 mg BID IV 06/20/24 10:00 06/20/24 10:48 40 MG Atorvastatin Calcium 10 mg HS PO 06/20/24 22:00 Prochlorperazine Edisylate 5 mg Q4HPRN PRN IV 06/19/24 23:15 Hold Dextrose 50 ml UD PRN IV 06/20/24 00:30 Examination Physical examination: General Appearance: Alert, Oriented X3, Cooperative, No acute distress HEENT: Atraumatic, PERRLA, EOMI, Mucous membrane moist/pink Respiratory: Clear to auscultation, Normal air movement Cardiovascular: Regular rate, Normal S1, Normal S2, No murmurs, no chest wall tenderness Abdominal: Normal bowel sounds, Soft, No tenderness, No hepatospenomegaly, No masses Extremities: No clubbing, No cyanosis, No edema, Normal pulses, No tenderness/swelling Skin: No rashes, No breakdown, No significant lesion Neuro: Normal gait, Normal speech, Strength at 5/5 X4 ext, Normal tone, Sensation intact, grossly intact cranial nerves. Psych/Mental Status: Mental status NL, Mood NL laboratory and microbiology Laboratory Tests 06/20/24 05:18 Test 06/20/24 05:18 Range/Units Serum Glucose 88 74-106 mg/dL Labs and/or images reviewed: Labs reviewed by me, Image(s) reviewed by me Problem List/Assessment/Plan Problem List/Assessment/Plan Assessment/Plan # Diarrhoea due to C-diff infection # Stomach adenocarcinoma (based on pathology report, 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 Dc, started chemotherapy on 05/07, last chemotherapy was on 06/11/2024 - Upper GI endoscopy, from 03/03, shows 7-8 cm gastric mass in the fundus which was friable polypoid with central ulceration with oozing and with increased bleeding - CT scan shows, gastric mass (83 mm) with multiple enlarged gastrohepatic lymph nodes likely represent metastatic disease - IV normal saline at 100 ml/hr - C-Diff toxin positive and pending stool studies, stool culture. - Vancomycin 125 mg po q.i.d, metronidazole IV 500 mg Q 8 hours and probiotics daily. # Chronic microcytic Hypochromic anaemia secondary to malignancy/ chemotherapy # Thrombocytopenia due to above - Monitor H/H and transfuse if needed # Petechial rashes There are diffuse reticular petechial rashes on the body, more on bilateral flank and hip # Type 2 diabetes mellitus, HbA1C 6.7 om 06/03/24 - Mild sliding scale of insulin. # Hypertensive heart Disease - Continue benazepril 20 mg daily # Dyslipidemia - Continue atorvastatin 10 mg daily # Moderate to severe protein malnutrition - Albumin is 2.5 - Counseled patient regarding healthy diet and lifestyle modification. DIET: Full liquids DVT prophylax: Due to possible bleeding, anticoagulant is not indicated, SCDs GI prophylaxis: Stop Protonix due to C-diff infection. Code status: Full code DISPOSITION: Med/surg Goal of care discussed with the patient for more than 20 minutes full code Plan discussed with Dr. Mann Plan discussed with: Patient, Other Date of Service: Jun 20, 2024 Billing Provider: JULIETA YONUG MD Common Visit Codes: [id number] INP/OBS CARE(HIGH) KIRAN FORDE RESIDENT Jun 20, 2024 11:44 JULIETA YOUNG MD Jun 23, 2024 09:52
[2024-06-20] MEDS ORDERED: AMPICILLIN & SULBACTAM SODIUM 3 GM in SODIUM CHL 0.9% 100 ML IV SCH (12:45)
--- NOTE | 2024-06-20 12:50 | ECG ---
[facility] Test Date: 2024-06-19 Test Time: 13:25:35 Pat Name: LORETA ELENA Department: ED Room: 0239 Gender: M Final Inspector Movement Assembly: PERLA : 1960 Requested By: TAMMI PARDO Order Number: [id number] Reading MD: Channing Grimm Measurements Intervals [place] Rate: 101 P: 6 [place]: 150 QRS: 21 QRSD: 87 T: 2 QT: 337 QTc: 437 Interpretive Statements Sinus tachycardia Electronically Signed On 06-20-2024 17:17:12 PST by Channing Grimm Please click the below link to view image of tracing.
[2024-06-20] MEDS: SODIUM CHLORIDE 0.9% 1,000 ML IV SCH (13:43)
[2024-06-20] MEDS: VANCOMYCIN HCL 125 MG CAP PO ONE (14:15)
[2024-06-20] MEDS: metroNIDAZOLE 500MG/100ML 100 ML IV SCH (14:32)
[2024-06-20 15:13] VITALS: BP 124/78; PULSE 90; RESP 17; TEMP 98.1; O2SAT 100
[2024-06-20 15:25] VITALS: BP 124/78; PULSE 90; RESP 15; TEMP 98.1; O2SAT 100
[2024-06-20] MEDS ORDERED: ONDA-155 SL (16:31)
[2024-06-20] MEDS ORDERED: BENA-27 PO (16:31)
[2024-06-20] MEDS ORDERED: LOPE2CAP PO (16:31)
[2024-06-20] MEDS ORDERED: DIPH2.5T73 PO (16:31)
[2024-06-20] MEDS ORDERED: PROC10TA6 PO (16:31)
[2024-06-20] MEDS ORDERED: LINA5TAB PO (16:31)
[2024-06-20] MEDS ORDERED: GLIP5TAB21 PO (16:31)
[2024-06-20 17:00] VITALS: BP 122/70; PULSE 82; RESP 17; TEMP 98.2; O2SAT 100
[2024-06-20] MEDS: VANCOMYCIN HCL 125 MG CAP PO SCH (17:10)
--- NOTE | 2024-06-20 18:11 | DVHINCON2 ---
Date of service: Jun 20, [address] Tello Reason for Consultation 1. Gastric cancer 2. C difficile colitis History of Present Illness The patient is a 63-year-old male with a history of gastric cancer currently on chemotherapy, hypertension, diabetes, hyperlipidemia, admitted with C difficile colitis with up to 20 bowel movements a day, denies bleeding. Patient is anemic. Patient was admitted for dehydration. Patient states that he is feeling better with antibiotics. He denies any fevers or chills, chest pain or shortness of breath. He does complain of rashes secondary to chemotherapy. Past Medical History As above Gastric cancer diagnosed in 2023 status post three cycles chemotherapy Diabetes Hypertension Hyperlipidemia C difficile colitis Past Surgical History Noncontributory Family History: FHx: colon cancer G8 MOTHER (UNKNOWN MEDICAL HISTORY), Hypertension G8 FATHER (HTN), Family History Family history of colon cancer Social History Prior tobacco no significant alcohol or recreational drug use Allergies: Coded Allergies: Amoxicillin (Verified Allergy, Severe, 06/03/24) Home Meds Active Scripts Pantoprazole Sodium Sesquihydr (Protonix) 40 Mg Tab, 40 MG PO BID for 30 Days, #60 TAB 2 Refills Prov:KATHERINE HERNANDEZ RESIDENT 03/02/24 Reported Medications Linagliptin Base (TRADJENTA) 5 Mg Tab, 5 MG PO DAILY, TAB 06/20/24 Loperamide Hcl (Loperamide Hcl) 2 Mg Cap, 2 MG PO Q6HP, MG 06/20/24 Glipizide (Glipizide) 5 Mg Tab, 5 MG PO DAILY, TAB 06/20/24 Diphenoxylate W/ Atropine (Lomotil) 2.5 Mg Tab, 2.5 MG PO, TAB 06/20/24 Benazepril & Hydrochlorothiazi (Benazepril Hydrochloride/ 20-12.5 mg) 1 Tab Tab, 1 TAB PO BID, TAB 06/20/24 Prochlorperazine Maleate (Compazine) 10 Mg Tb, 1 TAB PO Q8HR, #60 TAB 3 Refills 06/20/24 Ondansetron HCl (Ondansetron) 4 Mg Tab, 8 MG SL Q8HPRN, TAB 06/20/24 Linagliptin Base (TRADJENTA) 5 Mg Tab, 1 TAB PO DAILY, #90 TAB 1 Refill 02/28/24 Atorvastatin Calcium (ATORVASTATIN CALCIUM) 10 Mg Tab, 10 MG PO HS 02/28/24 Discontinued Reported Medications Benazepril Hcl (Lotensin) 20 Mg Tab, 1 TAB PO DAILY, #30 TAB 5 Refills 02/28/24 Glipizide (Glipizide) 10 Mg Tab, 1 TAB PO DAILY, #60 TAB 5 Refills 02/28/24 Metformin Hydrochloride (Metformin Hcl) 850 Mg Tab, 1 TAB PO DAILY, #60 TAB 5 Refills 02/28/24 Current Medications Current Medications Medications (Trade) Dose Ordered Sig/Polina Route PRN Reason Start Time Stop Time Status Last Admin Ondansetron HCl (Zofran) 4 mg Q4HPRN PRN IV NAUSEA / VOMITING 06/19/24 23:15 Hold Morphine Sulfate 1 mg Q4HP PRN IV SEVERE PAIN (7-10 PAIN SCALE) 06/19/24 23:15 Lactated Ringer's 1,000 ml @ 100 mls/hr Q10H IV 06/19/24 23:15 06/20/24 09:00 DC 06/20/24 00:08 Pantoprazole Sodium (Protonix) 40 mg BID IV 06/20/24 10:00 06/20/24 15:01 DC 06/20/24 10:48 Atorvastatin Calcium (Lipitor) 10 mg HS PO 06/20/24 22:00 Prochlorperazine Edisylate (Compazine Inj) 5 mg Q4HPRN PRN IV NAUSEA / VOMITING 06/19/24 23:15 Hold Dextrose 50 ml UD PRN IV Blood Sugar LESS THAN 60 06/20/24 00:30 Sodium Chloride 1,000 ml @ 100 mls/hr Q10H IV 06/20/24 12:45 06/20/24 13:43 Ampicillin Sodium/ Sulbactam Sodium 3 gm/Sodium Chloride 100 ml @ 100 mls/hr Q6H IV 06/20/24 12:45 06/20/24 14:15 DC Vancomycin HCl 125 mg QID PO 06/20/24 18:00 06/20/24 17:10 Saccharomyces Boulardii (Florastor) 250 mg DAILY PO 06/21/24 10:00 Metronidazole 100 ml @ 100 mls/hr Q8HR IV 06/20/24 14:32 Review of Systems See chart for full review of systems Gastric cancer Anemia No dizziness or seizure No chest pain or palpitations No shortness of breath No cough or wheeze no dysuria hematuria no history of kidney stones No arthralgias or myalgias Petechial rash No depression anxiety or psychosis Vital Signs Vital Signs Date Time Temp Pulse Resp B/P (MAP) Pulse Ox O2 Delivery O2 Flow Rate FiO2 06/20/24 17:00 98.2 82 17 122/70 (87) 100 98.2 06/20/24 15:00 Nasal Cannula* 2 28 Physical Exam General: Alert and oriented x4 HEENT: Normocephalic atraumatic extraocular movements are intact pupils equal round react light accommodating Regular rate and rhythm Soft nontender nondistended abdomen Extremity no clubbing cyanosis or edema Neurologically moves all four extremities no asterixis Skin rash petechial all over his body Labs/Diagnostic Data Labs Test 06/20/24 05:18 06/20/24 00:03 06/19/24 23:50 06/19/24 23:30 Range/Units White Blood Count 7.8 4.4-10.8 10^3/uL Red Blood Count 3.55 L 4.5-5.90 10^6/uL Hemoglobin 8.5 L 13.5-17.5 g/dL Hematocrit 26.7 L 41.0-53.0 % Mean Corpuscular Volume 75.1 L 80.0-100.0 fL Mean Corpuscular Hemoglobin 24.0 L 28.0-32.0 pg Mean Corpuscular Hemoglobin Concent 32.0 32.0-36.0 g/dL Red Cell Distribution Width 18.9 H 11.8-14.3 % Platelet Count 122 L 140-450 10^3/uL Mean Platelet Volume 7.2 6.9-10.8 fL Neutrophils (%) (Auto) 37.0-80.0 % Lymphocytes (%) (Auto) 10.0-50.0 % Monocytes (%) (Auto) 0.0-12.0 % Basophils (%) (Auto) 0.0-2.0 % Neutrophils # (Auto) 1.6-8.6 10 ^3/uL Lymphocytes # (Auto) 0.4-5.4 10 ^3/uL Monocytes # (Auto) 0-1.3 10 ^3/uL Differential Total Cells Counted 100.0 100 Neutrophils % (Manual) 68 37.0-80.0 Band Neutrophils % (Manual) 5 Lymphocytes % (Manual) 12 10.0-50.0 Monocytes % (Manual) 12 0-12 Eosinophils % (Manual) 0 0-7 Basophils % (Manual) 0 0.0-2.0 Metamyelocytes % (manual) 2 Myelocytes % (Manual) 0 Promyelocytes % (Manual) 1 Blast Cells % (Manual) 0 Nucleated Red Blood Cells 2.0 % Reactive Lymphocytes 0 Platelet Estimate Decreased Hypochromasia (manual) Moderate Microcytosis Slight Sodium Level 136 136-145 mmol/L Potassium Level 3.5 3.5-5.1 mmol/L Chloride Level 104 98-107 mmol/L Carbon Dioxide Level 30 20-31 mmol/L Anion Gap 2 L 5-15 Blood Urea Nitrogen 8 L 9-23 mg/dL Creatinine 0.58 L 0.700-1.30 mg/dL Glomerular Filtration Rate Calc 111 >90 mL/min BUN/Creatinine Ratio 13.8 10.0-20.0 Serum Glucose 88 74-106 mg/dL Calcium Level 7.7 L 8.7-10.4 mg/dL Total Bilirubin 0.3 0.2-1.0 mg/dL Aspartate Amino Transferase (AST) 31 13-40 U/L Alanine Aminotransferase (ALT) 21 7-40 U/L Alkaline Phosphatase 105 46-116 U/L Total Protein 4.3 L 5.7-8.2 g/dL Albumin 2.5 L 3.2-4.8 g/dL POC Glucose 92 70-106 mg/dl Stool Occult Blood Negative Negative Stool Occult Blood Sample #3 Negative Lactic Acid Level 0.7 0.4-2.0 mmol/L Magnesium Level 1.6 1.6-2.6 mg/dL Iron Level 14 L 65-175 ug/dL Total Iron Binding Capacity 216 L 250-425 ug/dL Percent Iron Saturation 6.5 L 20-55 % Ferritin 83.5 22-322 ng/mL Test 06/19/24 18:00 Range/Units Urine Color Yellow Yellow Urine Clarity Turbid H Clear Urine pH 6.0 5.0-9.0 Urine Specific [place] 1.026 1.001-1.035 Urine Protein 1+ H Negative Urine Ketones Negative Negative Urine Blood Negative Negative /uL Urine Nitrite Negative Negative Urine Bilirubin Negative Negative Urine Urobilinogen Normal Negative mg/dL Urine Leukocyte Esterase Negative Negative /uL Urine RBC 1 0 - 3 /hpf Urine Microscopic WBC 3 0-3 /HPF Urine Squamous Epithelial Cells Few <5 /hpf Urine Bacteria None seen None Seen /hpf Urine Hyaline Casts Few 0 - 2 /lpf Urine Mucus Moderate None Seen Urine Glucose Trace Normal mg/dL Microbiology Date/Time Source Procedure Growth Status 06/19/24 23:50 Stool Stool Culture - Preliminary Resulted 06/19/24 23:50 Stool Shiga Toxin I & II - Final Resulted 06/19/24 23:50 Stool Clostridium difficile Toxin Assay - Final Resulted Assessment -gastric cancer -anemia -dehydration C difficile colitis Patient's symptoms due to C difficile colitis consistent with diarrhea, dehydration, patient is improving with hydration and antibiotics. Problems(with codes): (1) History of stomach cancer (2) Diabetes mellitus with hyperglycemia (3) Gastric malignant neoplasm (4) Abnormal finding on GI tract imaging (5) Dehydration (6) Generalized weakness Plan/Recommendation 1. Continue antibiotics 2. Follow H&H and transfuse as needed 3.ivf hydration, and diet as tolerated 4.d/c when stable 5.outpatient follow up 6.will follow Plan discussed with: Patient TIARA MONTGOMERY MD Jun 20, 2024 18:11
[2024-06-20 20:00] VITALS: RESP 18
[2024-06-20] MEDS: MORPHINE SULFATE INJ 2 MG/ml SYRG IV PRN (20:14)
[2024-06-20 20:51] VITALS: BP 123/72; PULSE 83; RESP 16; TEMP 97.6; O2SAT 98
[2024-06-20] MEDS: ATORVASTATIN 20 MG TAB PO SCH (21:51)
[2024-06-21] VITALS (7 sets, daily range): BP systolic 120–142; BP diastolic 70–75; PULSE 78–92; RESP 14–18; TEMP 97.3–98; O2SAT 97–99
[2024-06-21 06:17] LABS: Hemoglobin 8.5 g/dL (13.5-17.5); Mean Corpuscular Volume 74.3 fL (80.0-100.0)
[2024-06-21 06:20] LABS: Hematocrit 26.4 % (41.0-53.0); Mean Corpuscular Hemoglobin 23.9 pg (28.0-32.0); Mean Corpuscular Hgb Conc. 32.1 g/dL (32.0-36.0); Platelet Count (auto) 138 10^3/uL (140-450); Red Blood Cells 3.56 10^6/uL (4.5-5.90); Red Cell Distribution Width 18.7 % (11.8-14.3); White Blood Cell 12.2 10^3/uL (4.4-10.8)
[2024-06-21 06:37] LABS: Basophils % (manual) 0 (0.0-2.0); Blast Cells 0; Eosinophils % (manual) 0 (0-7); Metamyelocytes % 0; Promyelocytes % 0
[2024-06-21 06:40] LABS: Chloride 102 mmol/L (98-107)
[2024-06-21 06:41] LABS: Anion Gap 6 (5-15); Carbon Dioxide 27 mmol/L (20-31)
[2024-06-21 06:46] LABS: BUN/Creatinine Ratio 16.9 (10.0-20.0); Blood Urea Nitrogen 10 mg/dL (9-23); Glucose 89 mg/dL (74-106)
[2024-06-21 06:47] LABS: Calcium 7.6 mg/dL (8.7-10.4); Potassium 3.3 mmol/L (3.5-5.1); Sodium 135 mmol/L (136-145)
[2024-06-21 07:46] LABS: Band Neutrophils % (manual) 8; Lymphocytes % (manual) 12 (10.0-50.0); Monocytes % (manual) 6 (0-12); Myelocytes % 1; Reactive Lymphocytes 2
[2024-06-21 07:47] LABS: Hypochromia Moderate; Platelet Estimate Decreased
[2024-06-21] MEDS: FLORASTOR (S. BOULARDII) 250 MG CAP PO SCH (09:34)
--- NOTE | 2024-06-21 10:31 | DVHPNRES ---
Progress Note Date Seen: Jun 21, 2024 Resident Creating Document: KIRAN FORDE RESIDENT Medical Necessity Reason Pt with a Central, PICC or Fol: No Subjective Review of Systems This is a 63-year-old male with past medical history of gastric adenocarcinoma( on chemotherapy) , diabetes mellitus, hypertension, hyperlipidemia, came to the hospital due to diarrhea and abdominal pain for 3 days prior to this admission. Patient states that diarrhea started since starting of chemotherapy for gastric adenocarcinoma but has worsened since 3 days that prompted this visit. Diarrhoea is watery, nonbloody, brown in color and almost 20 episodes per day and also associated with mild abdominal pain, generalized weakness and generalized eczematous rashes in the trunk. Patient was seen and examined on the bedside. He alert, oriented x3. Complains of 3 bowel movements since morning and mild upper abdominal pain. No other active complaints. Constitutional: No: Fever, Chills, Sweats, Weakness, Malaise, Other Eyes: No: Pain, Vision change, Conjunctivae inflammation, Eyelid inflammation, Other, Redness ENT: No: Ear pain, Ear discharge, Nose pain, Nose discharge, Nose congestion, Mouth pain, Mouth swelling, Throat pain, Throat swelling, Other Respiratory: Shortness of breath, improving No: Cough, Dry,Wheezing, Hemoptysis, Pleuritic Pain, Sputum, Wheezing, Other Cardiovascular: No: Chest Pain, Palpitations, Orthopnea, Paroxysmal Noc. Dyspnea, Edema, Lt Headedness, Other Gastrointestinal: Abdominal Pain, Diarrhea No: Nausea, Vomiting, Constipation, Melena, Hematochezia, Other Musculoskeletal: No: other, neck pain, shoulder pain, arm pain, back pain, hand pain, leg pain, foot pain Neurological:; No: Weakness, Numbness, Incoordination, Change in speech, Confusion, Seizures Objective vital signs Vital Sign Date Time Temp Pulse Resp B/P (MAP) Pulse Ox O2 Delivery O2 Flow Rate FiO2 06/21/24 09:35 83 18 125/72 06/21/24 09:00 97.8 99 97.8 06/20/24 20:00 Room Air* 0 21 Total Intake and Output 06/20/24 06/20/24 06/21/24 15:00 23:00 07:00 Intake Total 600 ml 300 ml 520 ml Balance 600 ml 300 ml 520 ml medications Current Medications Medications Dose Ordered Sig/Polina Route Start Time Stop Time Status Last Admin Dose Admin Ondansetron HCl 4 mg Q4HPRN PRN IV 06/19/24 23:15 Hold Morphine Sulfate 1 mg Q4HP PRN IV 06/19/24 23:15 06/21/24 09:35 1 MG Atorvastatin Calcium 10 mg HS PO 06/20/24 22:00 06/20/24 21:51 10 MG Prochlorperazine Edisylate 5 mg Q4HPRN PRN IV 06/19/24 23:15 Hold Dextrose 50 ml UD PRN IV 06/20/24 00:30 Vancomycin HCl 125 mg QID PO 06/20/24 18:00 06/21/24 06:32 125 MG Saccharomyces Boulardii 250 mg DAILY PO 06/21/24 10:00 06/21/24 09:34 250 MG Metronidazole 100 ml @ 100 mls/hr Q8HR IV 06/20/24 14:32 06/21/24 06:28 100 MLS/HR Examination Physical examination: General Appearance: Alert, Oriented X3, Cooperative, No acute distress HEENT: Atraumatic, PERRLA, EOMI, Mucous membrane moist/pink Respiratory: Clear to auscultation, Normal air movement Cardiovascular: Regular rate, Normal S1, Normal S2, No murmurs, no chest wall tenderness Abdominal: Normal bowel sounds, Soft, No tenderness, No hepatospenomegaly, No masses Extremities: No clubbing, No cyanosis, No edema, Normal pulses, No tenderness/swelling Skin: No rashes, No breakdown, No significant lesion Neuro: Normal gait, Normal speech, Strength at 5/5 X4 ext, Normal tone, Sensation intact, grossly intact cranial nerves. 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 Dc, started chemotherapy on 05/07, last chemotherapy was on 06/11/2024 - Upper GI endoscopy, from 03/03, shows 7-8 cm gastric mass in the fundus which was friable polypoid with central ulceration with oozing and with increased bleeding - CT scan shows, gastric mass (83 mm) with multiple enlarged gastrohepatic lymph nodes likely represent metastatic disease - IV normal saline at 100 ml/hr - C-Diff toxin positive and pending stool studies, stool culture. - Vancomycin 125 mg po q.i.d, metronidazole IV 500 mg Q 8 hours and probiotics daily. - GI evaluated the patient and recommended continue current management and outpatient follow up # Chronic microcytic Hypochromic anaemia secondary to malignancy/ chemotherapy # Thrombocytopenia due to above - Monitor H/H and transfuse if needed # Petechial rashes; most likely induced by chemotherapy treatment - There are diffuse reticular petechial rashes on the body, more on bilateral flank and hip - Wound consult - Benadryl 25 mg po once and q6h p.r.n. # Type 2 diabetes mellitus, HbA1C 6.7 om 06/03/24 - Mild sliding scale of insulin. # Hypertensive heart Disease - Continue benazepril 20 mg daily # Dyslipidemia - Continue atorvastatin 10 mg daily # Moderate to severe protein malnutrition - Albumin is 2.5 - Counseled patient regarding healthy diet and lifestyle modification. DIET: Consistent carbohydrate diet DVT prophylax: Due to possible bleeding, anticoagulant is not indicated, SCDs GI prophylaxis: Stop Protonix due to C-diff infection. Code status: Full code DISPOSITION: Med/surg Goal of care discussed with the patient and his family for 20 minutes; full code Plan discussed with Dr. Jaeger Plan discussed with: Patient, Spouse, Son, Other (RN) My Orders My Orders Orders - KIRAN FORDE RESIDENT Procedure Category Date Status Time Vancomycin Po PHA 06/20/24 In Process 18:00 Florastor (S. PHA 06/21/24 In Process Boulardii) (Florastor) 10:00 Metronidazole PHA 06/20/24 In Process 500mg/100ml (Flagyl 14:32 Regular Diet DIET 06/21/24 Transmitted Lunch Addendum Addendum Addendum I was physically present for the sanches portions of the service provided to patient by THE RESIDENT. I have reviewed the documentation, discussed the case with resident and agree with the resident's documentation except as noted. Also the patient's clinical case was discussed with the patient's nurse. This medical document was created using an electronic medical record system with computerized dictation system. Although this document has been carefully reviewed, there might still be some phonetic and typographical errors. These areas are purely typographical due to imperfections of the software programs, and do not reflect any compromise in the patient's medical care. Late signature. Date of Service: Jun 21, 2024 Billing Provider: DARLENE JAEGER MD Common Visit Codes: [id number] INP/OBS CARE(HIGH) Secondary Visit Codes: [id number] CARE PLAN 30 MINUTES (20 minutes) KRIAN FORDE RESIDENT Jun 21, 2024 10:31 DARLENE JAEGER MD Jun 22, 2024 19:00
[2024-06-21] MEDS: POTASSIUM EFFERVESENT TAB 25 MEQ PO ONE (11:28)
[2024-06-21] MEDS: HYDROcodone-ACET 5/325MG TAB PO PRN (12:22)
[2024-06-21] MEDS: diphenhdrAMINE HCL 25 MG CAP PO ONE (15:26)
[2024-06-22] VITALS (7 sets, daily range): BP systolic 106–140; BP diastolic 69–81; PULSE 79–108; RESP 14–19; TEMP 97.5–98.5; O2SAT 97–99
[2024-06-22 07:20] LABS: Basophils # (auto) 0 10 ^3/uL (0-0.2); Basophils % (auto) 0.2 % (0.0-2.0); Eosinophils # (auto) 0 10 ^3/uL (0-0.8); Lymphocytes # (auto) 1.7 10 ^3/uL (0.4-5.4); Mean Corpuscular Hemoglobin 23.7 pg (28.0-32.0); Mean Corpuscular Hgb Conc. 31.7 g/dL (32.0-36.0); Nucleated Red Blood Cells % 0.3 %
[2024-06-22 07:26] LABS: Eosinophils % (auto) 0.1 % (0.0-7.0); Hematocrit 28.2 % (41.0-53.0); Hemoglobin 8.9 g/dL (13.5-17.5); Lymphocytes % (auto) 11.2 % (10.0-50.0); Mean Corpuscular Volume 74.6 fL (80.0-100.0); Monocytes # (auto) 1.2 10 ^3/uL (0-1.3); Monocytes % (auto) 7.9 % (0.0-12.0); Neutrophils % (auto) 80.6 % (37.0-80.0); Platelet Count (auto) 142 10^3/uL (140-450); Red Blood Cells 3.78 10^6/uL (4.5-5.90); Red Cell Distribution Width 19.1 % (11.8-14.3); White Blood Cell 14.8 10^3/uL (4.4-10.8)
[2024-06-22 07:32] LABS: Chloride 102 mmol/L (98-107)
[2024-06-22 07:33] LABS: Anion Gap 7 (5-15); Carbon Dioxide 27 mmol/L (20-31)
[2024-06-22 07:36] LABS: Calcium 7.8 mg/dL (8.7-10.4); Potassium 3.3 mmol/L (3.5-5.1); Sodium 136 mmol/L (136-145)
[2024-06-22 07:38] LABS: BUN/Creatinine Ratio 12.7 (10.0-20.0); Blood Urea Nitrogen 7 mg/dL (9-23); Glucose 75 mg/dL (74-106)
[2024-06-22] MEDS ORDERED: ENOXAPARIN SOD 40 MG/0.4 ML SYRINGE SC SCH (10:00)
--- NOTE | 2024-06-22 10:20 | PRN ---
Misceleneous Note Note Note June 22, 2024 Subjective: Patient states that he still has diarrhea, mild abdominal pain Current Medications Medications (Trade) Dose Ordered Sig/Polina Route Start Time Stop Time Status Last Admin Dose Admin Ondansetron HCl (Zofran) 4 mg Q4HPRN PRN IV 06/19/24 23:15 Hold Morphine Sulfate 1 mg Q4HP PRN IV 06/19/24 23:15 06/21/24 17:57 1 MG Atorvastatin Calcium (Lipitor) 10 mg HS PO 06/20/24 22:00 06/21/24 22:00 10 MG Prochlorperazine Edisylate (Compazine Inj) 5 mg Q4HPRN PRN IV 06/19/24 23:15 Hold Dextrose 50 ml UD PRN IV 06/20/24 00:30 Vancomycin HCl 125 mg QID PO 06/20/24 18:00 06/22/24 06:00 125 MG Saccharomyces Boulardii (Florastor) 250 mg DAILY PO 06/21/24 10:00 06/22/24 09:07 250 MG Metronidazole 100 ml @ 100 mls/hr Q8HR IV 06/20/24 14:32 06/22/24 06:00 100 MLS/HR Acetaminophen/ Hydrocodone Bitart (Hondo 5/325MG Tab) 1 tab Q6HPRN PRN PO 06/21/24 11:45 06/22/24 09:08 1 TAB Diphenhydramine HCl (Benadryl Capsule) 25 mg Q6HP PRN PO 06/21/24 14:45 Vital Signs Date Time Temp Pulse Resp B/P (MAP) Pulse Ox O2 Delivery O2 Flow Rate FiO2 06/22/24 09:00 97.9 87 18 140/81 (100) 98 97.9 06/22/24 07:55 Room Air* 0 21 General: Alert and oriented x4 no distress Normocephalic atraumatic extraocular muscles intact, pupils equal round react light accommodating Abdomen soft mild tenderness to palpation no masses no guarding Extremity: No clubbing cyanosis or edema Neuro: Moves all four extremities no asterixis Laboratory values noted for leukocytosis with white count of 14 increased from previous Impression: 1. Gastric cancer 2. C difficile colitis 3. Diarrhea due to 2. 4. Anemia Recommendations: 1. Consider Infectious Disease consultation or switching medications to Dificid 2. Continue with Florastor 3. Follow labs 4. Diet as tolerated 5. I will be signing off and will have Dr. Noe follow TIARA MONTGOMERY MD Jun 22, 2024 10:20
--- NOTE | 2024-06-22 10:54 | DVHPNRES ---
Progress Note Date Seen: Jun 22, 2024 Resident Creating Document: YAEL PARISI RESIDENT Has the PT tested + for MRSA If YES, has PT been informed?: No Medical Necessity Reason Pt with a Central, PICC or Fol: No Subjective Review of Systems This is a 63-year-old male with past medical history of gastric adenocarcinoma on chemotherapy (the patient has had three sessions so far with fluorouracil injections and has upcoming sessions of leucovorin, oxaliplatin, docetaxel) , diabetes mellitus, hypertension, hyperlipidemia, came to the hospital due to diarrhea and abdominal pain for 3 days prior to this admission. Patient states that diarrhea started since starting of chemotherapy for gastric adenocarcinoma but has worsened since 3 days that prompted this visit. Diarrhoea is watery, nonbloody, brown in color and almost 20 episodes per day and also associated with mild abdominal pain, generalized weakness and generalized eczematous rashes in the trunk. Patient seen and examined at bedside. The patient is alert and oriented in person, place and time. The patient reports three episodes of diarrhea since overnight until this morning at 6:00 a.m. when he has his last episode. The patient states that the diarrhea still liquid but he is getting a little bit more to soft consistency. The patient also reports VB last use rash in the trunk flanks bilaterally that has been going on since before admission. We will continue oral vancomycin 125 mg q.i.d. and IV metronidazole 500 mg q.8. Continue Florastor 250 mg daily and rest of current medical management. Patient still needs IV hydration. ROS Constitutional: Denies weight loss, fever and chills. HEENT: Denies changes in vision and hearing. Respiratory: Denies shortness of breath and cough Cardiovascular: Denies chest discomfort or palpitations GI: Reports three episodes of watery diarrhea in the last 12 hours. Denies abdominal pain, nausea, vomiting and diarrhea. : Denies dysuria and urinary frequency. Musculoskeletal: Denies myalgias and joint pain Skin: Reports violaceous rash in bilateral trunk flanks. Neurological: Denies dizziness, headache, vision or hearing problems Objective vital signs Vital Sign Date Time Temp Pulse Resp B/P (MAP) Pulse Ox O2 Delivery O2 Flow Rate FiO2 06/22/24 09:00 97.9 87 18 140/81 (100) 98 97.9 06/22/24 07:55 Room Air* 0 21 Total Intake and Output 06/21/24 06/21/24 06/22/24 15:00 23:00 07:00 Intake Total 100 ml 600 ml 440 ml Balance 100 ml 600 ml 440 ml medications Current Medications Medications Dose Ordered Sig/Polina Route Start Time Stop Time Status Last Admin Dose Admin Ondansetron HCl 4 mg Q4HPRN PRN IV 06/19/24 23:15 Hold Morphine Sulfate 1 mg Q4HP PRN IV 06/19/24 23:15 06/21/24 17:57 1 MG Atorvastatin Calcium 10 mg HS PO 06/20/24 22:00 06/21/24 22:00 10 MG Prochlorperazine Edisylate 5 mg Q4HPRN PRN IV 06/19/24 23:15 Hold Dextrose 50 ml UD PRN IV 06/20/24 00:30 Vancomycin HCl 125 mg QID PO 06/20/24 18:00 06/22/24 06:00 125 MG Saccharomyces Boulardii 250 mg DAILY PO 06/21/24 10:00 06/22/24 09:07 250 MG Metronidazole 100 ml @ 100 mls/hr Q8HR IV 06/20/24 14:32 06/22/24 06:00 100 MLS/HR Acetaminophen/ Hydrocodone Bitart 1 tab Q6HPRN PRN PO 06/21/24 11:45 06/22/24 09:08 1 TAB Diphenhydramine HCl 25 mg Q6HP PRN PO 06/21/24 14:45 Examination Physical Examination General: Patient alert and oriented in person, place and time. Patient following commands. HEENT: Normocephalic, atraumatic, moist mucous membranes Respiratory/pulmonary: Clear lungs bilaterally, no associated crackles or wheezes. Cardiovascular: Normal heart sounds S1 and S2 with no associated murmurs Abdomen: Abdomen nondistended, there is no pain to palpation in any of the abdominal quadrants, no palpable masses. Extremities: There is no peripheral edema present at the lower extremities. Peripheral Pulses: 3+ Radial (R). 3+ Radial (L). 3+ Dorsalis pedis (R). 3+ Dorsalis pedis(L) Skin: There are bilateral flank violaceous rash in the trunk. there is no sacral edema present at this time. Neurological: Intact cranial nerves with no focal neurologic deficits laboratory and microbiology Laboratory Tests 06/22/24 05:57 Test 1/26/25 05:57 Range/Units Serum Glucose 75 74-106 mg/dL Microbiology Date/Time Source Procedure Growth Status 06/19/24 23:50 Stool Stool Culture - Preliminary Resulted 06/19/24 23:50 Stool Shiga Toxin I & II - Final Resulted 06/19/24 23:50 Stool Clostridium difficile Toxin Assay - Final Resulted Labs and/or images reviewed: Labs reviewed by me, Image(s) reviewed by me Problem List/Assessment/Plan Problem List/Assessment/Plan Assessment/Plan Acute Diarrhea due to C-diff infection Gastric adenocarcinoma (based on pathology report, from a biopsy on 03/03/24), likely metastasis to the perigastric lymph nodes. - Patient is followed by Dr. Dc, started chemotherapy on 05/07, last chemotherapy was on 06/11/2024. (current chemotherapy fluorouracil, leucovorin, oxaliplatin, docetaxel), has got 3 sessions of chemo (fluorouracil) so far. - Upper GI endoscopy, from 03/03, shows 7-8 cm gastric mass in the fundus which was friable polypoid with central ulceration with oozing and with increased bleeding - CT scan shows, gastric mass (83 mm) with multiple enlarged gastrohepatic lymph nodes likely represent metastatic disease - IV D5W/0.9% at 75 ml/hr - C-Diff toxin positive and pending stool studies, stool culture. -Continue Vancomycin 125 mg po q.i.d, metronidazole IV 500 mg Q 8 hours and probiotics daily. - GI evaluated the patient and recommended continue current management and outpatient follow up Chronic microcytic Hypochromic anaemia secondary to malignancy/ chemotherapy Thrombocytopenia due to above - Monitor H/H and transfuse if needed Petechial rashes - There are diffuse reticular petechial rashes on the body, more on bilateral flank and hip - Wound consult - Benadryl 25 mg po once and q6h p.r.n. Type 2 diabetes mellitus, HbA1C 6.7 om 06/03/24 - Mild sliding scale of insulin. -Monitor Blood glucose closely Hypertensive heart Disease - Continue benazepril 20 mg daily Dyslipidemia - Continue atorvastatin 10 mg daily Moderate to severe protein malnutrition - Albumin is 2.5 - Counseled patient regarding healthy diet and lifestyle modification. Plan discussed with Dr. Jaeger Plan discussed with: Patient, Other (RN) Addendum Addendum Addendum I was physically present for the sanches portions of the service provided to patient by THE RESIDENT. I have reviewed the documentation, discussed the case with resident and agree with the resident's documentation except as noted. Also the patient's clinical case was discussed with the patient's nurse. This medical document was created using an electronic medical record system with computerized dictation system. Although this document has been carefully reviewed, there might still be some phonetic and typographical errors. These areas are purely typographical due to imperfections of the software programs, and do not reflect any compromise in the patient's medical care. Late signature. Date of Service: Jun 22, 2024 Billing Provider: DARLENE JAEGER MD Common Visit Codes: [id number] INP/OBS CARE(HIGH) YAEL PARISI RESIDENT Jun 22, 2024 10:54 DARLENE JAEGER MD Jun 23, 2024 04:32
[2024-06-22] MEDS: diphenhdrAMINE HCL 25 MG CAP PO PRN (11:25)
[2024-06-22] MEDS: D5W/SOD CHLO 0.9% 1,000 ML IV SCH (11:25)
[2024-06-22] MEDS: POTASSIUM EFFERVESENT TAB 25 MEQ GT ONE (11:27)
--- NOTE | 2024-06-22 15:39 | DVH ---
CLINICAL HISTORY: 63 years old, Male; persistent diarrhea and abdominal pain. TECHNIQUE: Single AP supine abdominal radiograph was obtained COMPARISON: None FINDINGS: Nonspecific gas-filled nondilated small bowel loops and gas visualized throughout the colo n. No significant calcifications are seen. No significant stool burden suggest constipation. IMPRESSION: Nonspecific nonobstructive bowel gas pattern as described above.
[2024-06-23] VITALS (7 sets, daily range): BP systolic 114–133; BP diastolic 70–79; PULSE 76–111; RESP 16–18; TEMP 97.6–98.4; O2SAT 99–100
[2024-06-23 06:52] LABS: Chloride 103 mmol/L (98-107); Hematocrit 27.4 % (41.0-53.0); Mean Corpuscular Hemoglobin 23.7 pg (28.0-32.0); Sodium 137 mmol/L (136-145)
[2024-06-23 06:53] LABS: Anion Gap 5 (5-15); Calcium 7.5 mg/dL (8.7-10.4); Carbon Dioxide 29 mmol/L (20-31); Potassium 3.3 mmol/L (3.5-5.1)
[2024-06-23 06:54] LABS: Hemoglobin 8.7 g/dL (13.5-17.5); Mean Corpuscular Hgb Conc. 31.7 g/dL (32.0-36.0); Mean Corpuscular Volume 74.6 fL (80.0-100.0); Platelet Count (auto) 148 10^3/uL (140-450); Red Blood Cells 3.67 10^6/uL (4.5-5.90); Red Cell Distribution Width 19.7 % (11.8-14.3); White Blood Cell 17.1 10^3/uL (4.4-10.8)
[2024-06-23 06:58] LABS: BUN/Creatinine Ratio 10.3 (10.0-20.0); Glucose 85 mg/dL (74-106)
[2024-06-23 07:03] LABS: Basophils % (manual) 0 (0.0-2.0); Blast Cells 0; Eosinophils % (manual) 0 (0-7); Myelocytes % 0; Promyelocytes % 0; Reactive Lymphocytes 0
[2024-06-23 07:04] LABS: Blood Urea Nitrogen 7 mg/dL (9-23)
[2024-06-23 08:07] LABS: Metamyelocytes % 1
[2024-06-23 08:08] LABS: Band Neutrophils % (manual) 8; Lymphocytes % (manual) 11 (10.0-50.0); Monocytes % (manual) 7 (0-12)
[2024-06-23 08:09] LABS: Anisocytosis Slight; Hypochromia Slight; Platelet Estimate Adequate
[2024-06-23] MEDS: POTASSIUM EFFERVESENT TAB 25 MEQ PO ONE (11:30)
--- NOTE | 2024-06-23 17:59 | DVHPNRES ---
Progress Note Date Seen: Jun 23, 2024 Resident Creating Document: KIRAN FORDE RESIDENT Has the PT tested + for MRSA If YES, has PT been informed?: No Medical Necessity Reason Pt with a Central, PICC or Fol: No Subjective Review of Systems This is a 63-year-old male with past medical history of gastric adenocarcinoma on chemotherapy (the patient has had three sessions so far with fluorouracil injections and has upcoming sessions of leucovorin, oxaliplatin, docetaxel) , diabetes mellitus, hypertension, hyperlipidemia, came to the hospital due to diarrhea and abdominal pain for 3 days prior to this admission. Patient states that diarrhea started since starting of chemotherapy for gastric adenocarcinoma but has worsened since 3 days that prompted this visit. Diarrhoea is watery, nonbloody, brown in color and almost 20 episodes per day and also associated with mild abdominal pain, generalized weakness and generalized eczematous rashes in the trunk. Patient seen and examined at bedside. The patient is alert and oriented in person, place and time. The patient reports three episodes of diarrhea since overnight until this morning at 6:00 a.m. when he has his last episode. The patient states that the diarrhea still liquid but he is getting a little bit more to soft consistency. We will continue oral vancomycin 125 mg q.i.d. and IV metronidazole 500 mg q.8 and Continue Florastor 250 mg daily and rest of current medical management. Patient still needs IV hydration. Consulted infectious disease and awaiting their recommendation. Objective vital signs Vital Sign Date Time Temp Pulse Resp B/P (MAP) Pulse Ox O2 Delivery O2 Flow Rate FiO2 06/23/24 17:00 97.9 98 18 125/77 (93) 99 97.9 06/23/24 08:00 Room Air* 0 21 Total Intake and Output 06/22/24 06/22/24 06/23/24 15:00 23:00 07:00 Intake Total 1400 ml 650 ml Balance 1400 ml 650 ml medications Current Medications Medications Dose Ordered Sig/Polina Route Start Time Stop Time Status Last Admin Dose Admin Ondansetron HCl 4 mg Q4HPRN PRN IV 06/19/24 23:15 Hold Morphine Sulfate 1 mg Q4HP PRN IV 06/19/24 23:15 06/23/24 05:31 1 MG Atorvastatin Calcium 10 mg HS PO 06/20/24 22:00 06/22/24 21:25 10 MG Prochlorperazine Edisylate 5 mg Q4HPRN PRN IV 06/19/24 23:15 Hold Dextrose 50 ml UD PRN IV 06/20/24 00:30 Vancomycin HCl 125 mg QID PO 06/20/24 18:00 06/23/24 16:48 125 MG Saccharomyces Boulardii 250 mg DAILY PO 06/21/24 10:00 06/23/24 08:46 250 MG Metronidazole 100 ml @ 100 mls/hr Q8HR IV 06/20/24 14:32 06/23/24 13:44 100 MLS/HR Acetaminophen/ Hydrocodone Bitart 1 tab Q6HPRN PRN PO 06/21/24 11:45 06/23/24 09:38 1 TAB Diphenhydramine HCl 25 mg Q6HP PRN PO 06/21/24 14:45 06/22/24 11:25 25 MG Dextrose/Sodium Chloride 1,000 ml @ 75 mls/hr [id number] IV 06/22/24 11:00 06/23/24 13:44 75 MLS/HR Examination Physical examination: General Appearance: Alert, Oriented X3, Cooperative, No acute distress HEENT: Atraumatic, PERRLA, EOMI, Mucous membrane moist/pink Respiratory: Clear to auscultation, Normal air movement Cardiovascular: Regular rate, Normal S1, Normal S2, No murmurs, no chest wall tenderness Abdominal: Normal bowel sounds, Soft, No tenderness, No hepatospenomegaly, No masses Extremities: No clubbing, No cyanosis, No edema, Normal pulses, No tenderness/swelling Skin: Bilateral hyperpigmented rashes in torso, No breakdown, No significant lesion Neuro: Normal gait, Normal speech, Strength at 5/5 X4 ext, Normal tone, Sensation intact, grossly intact cranial nerves. Psych/Mental Status: Mental status NL, Mood NL laboratory and microbiology Laboratory Tests 06/23/24 05:59 Test 06/23/24 05:59 Range/Units Serum Glucose 85 74-106 mg/dL Microbiology Date/Time Source Procedure Growth Status 06/19/24 23:50 Stool Stool Culture - Final Complete 06/19/24 23:50 Stool Shiga Toxin I & II - Final Complete 06/19/24 23:50 Stool Clostridium difficile Toxin Assay - Final Complete Labs and/or images reviewed: Labs reviewed by me, Image(s) reviewed by me Problem List/Assessment/Plan Problem List/Assessment/Plan Assessment/Plan Acute Diarrhea due to C-diff infection Gastric adenocarcinoma (based on pathology report, from a biopsy on 03/03/24), likely metastasis to the perigastric lymph nodes. - Patient is followed by Dr. Dc, started chemotherapy on 05/07, last chemotherapy was on 06/11/2024. (current chemotherapy fluorouracil, leucovorin, oxaliplatin, docetaxel), has got 3 sessions of chemo (fluorouracil) so far. - Upper GI endoscopy, from 03/03, shows 7-8 cm gastric mass in the fundus which was friable polypoid with central ulceration with oozing and with increased bleeding - CT scan shows, gastric mass (83 mm) with multiple enlarged gastrohepatic lymph nodes likely represent metastatic disease - IV D5W/0.9% at 75 ml/hr - C-Diff toxin positive and stool studies negative for E.coli, shiga toxin and camylobacter. -Continue Vancomycin 125 mg po q.i.d, metronidazole IV 500 mg Q 8 hours and probiotics daily. - GI evaluated the patient and recommended continue current management and outpatient follow up - Consulted infectious disease and awaiting for their recommendation. Chronic microcytic Hypochromic anaemia secondary to malignancy/ chemotherapy Thrombocytopenia due to above - Monitor H/H and transfuse if needed Petechial rashes - There are diffuse reticular petechial rashes on the body, more on bilateral flank and hip - Wound consult - Benadryl 25 mg po once and q6h p.r.n. Type 2 diabetes mellitus, HbA1C 6.7 om 06/03/24 - Mild sliding scale of insulin. -Monitor Blood glucose closely Hypertensive heart Disease - Continue benazepril 20 mg daily Dyslipidemia - Continue atorvastatin 10 mg daily Moderate to severe protein malnutrition - Albumin is 2.5 - Counseled patient regarding healthy diet and lifestyle modification. Diet: Consistent carbohydrate diet DVT prophylaxis: Lovenox 40 mg SC daily. Plan discussed with Dr. Mann Plan discussed with: Patient, Other Date of Service: Jun 23, 2024 Billing Provider: JULIETA YOUNG MD Common Visit Codes: [id number] INP/OBS CARE(HIGH) KIRAN FORDE RESIDENT Jun 23, 2024 17:59 JULIETA YOUNG MD Jun 24, 2024 09:45
[2024-06-23] MEDS: MAGNESIUM OXIDE 400 MG TAB PO ONE (18:13)
[2024-06-24] VITALS (7 sets, daily range): BP systolic 128–140; BP diastolic 70–78; PULSE 75–85; RESP 18–20; TEMP 97.8–98.7; O2SAT 96–100
[2024-06-24 06:47] LABS: Hematocrit 26.6 % (41.0-53.0); Hemoglobin 8.3 g/dL (13.5-17.5); Mean Corpuscular Hemoglobin 23.2 pg (28.0-32.0); Mean Corpuscular Hgb Conc. 31.3 g/dL (32.0-36.0); Mean Corpuscular Volume 74.2 fL (80.0-100.0); Platelet Count (auto) 150 10^3/uL (140-450); Red Blood Cells 3.59 10^6/uL (4.5-5.90); Red Cell Distribution Width 19.5 % (11.8-14.3); White Blood Cell 18.6 10^3/uL (4.4-10.8)
[2024-06-24 06:58] LABS: Basophils % (manual) 0 (0.0-2.0); Blast Cells 0; Eosinophils % (manual) 0 (0-7); Myelocytes % 0; Promyelocytes % 0; Reactive Lymphocytes 0
[2024-06-24 07:00] LABS: Anion Gap 7 (5-15); Carbon Dioxide 27 mmol/L (20-31); Chloride 103 mmol/L (98-107); Potassium 3.7 mmol/L (3.5-5.1); Sodium 137 mmol/L (136-145)
[2024-06-24 07:06] LABS: Glucose 84 mg/dL (74-106)
[2024-06-24 07:07] LABS: Blood Urea Nitrogen 9 mg/dL (9-23)
[2024-06-24 07:09] LABS: Calcium 7.7 mg/dL (8.7-10.4)
[2024-06-24] MEDS: ENOXAPARIN SOD 40 MG/0.4 ML SYRINGE SC SCH (09:03)
[2024-06-24 09:29] LABS: Band Neutrophils % (manual) 7; Lymphocytes % (manual) 5 (10.0-50.0); Metamyelocytes % 3; Monocytes % (manual) 4 (0-12)
[2024-06-24 09:30] LABS: Hypochromia Moderate; Platelet Estimate Adequate
--- NOTE | 2024-06-24 16:53 | DVHPNRES ---
Progress Note Date Seen: Jun 24, 2024 Resident Creating Document: KIRAN FORDE RESIDENT Has the PT tested + for MRSA If YES, has PT been informed?: No Medical Necessity Reason Pt with a Central, PICC or Fol: No Subjective Review of Systems This is a 63-year-old male with past medical history of gastric adenocarcinoma on chemotherapy (the patient has had three sessions so far with fluorouracil injections and has upcoming sessions of leucovorin, oxaliplatin, docetaxel) , diabetes mellitus, hypertension, hyperlipidemia, came to the hospital due to diarrhea and abdominal pain for 3 days prior to this admission. Patient states that diarrhea started since starting of chemotherapy for gastric adenocarcinoma but has worsened since 3 days that prompted this visit. Diarrhoea is watery, nonbloody, brown in color and almost 20 episodes per day and also associated with mild abdominal pain, generalized weakness and generalized eczematous rashes in the trunk. Patient seen and examined at bedside. The patient is alert and oriented in person, place and time. Mentioned feeling better and no bowel movement since morning. Wbc count is still high and awaiting for infectious disease recommendation. Possible Discharge tomorrow. Objective vital signs Vital Sign Date Time Temp Pulse Resp B/P (MAP) Pulse Ox O2 Delivery O2 Flow Rate FiO2 06/24/24 16:39 76 18 126/68 06/24/24 09:00 97.8 98 97.8 06/24/24 08:00 Room Air* 0 21 Total Intake and Output 06/23/24 06/23/24 06/24/24 15:00 23:00 07:00 Intake Total 100 ml 1230 ml 900 ml Balance 100 ml 1230 ml 900 ml medications Current Medications Medications Dose Ordered Sig/Polina Route Start Time Stop Time Status Last Admin Dose Admin Ondansetron HCl 4 mg Q4HPRN PRN IV 06/19/24 23:15 Hold Morphine Sulfate 1 mg Q4HP PRN IV 06/19/24 23:15 06/24/24 16:09 1 MG Atorvastatin Calcium 10 mg HS PO 06/20/24 22:00 06/23/24 21:05 10 MG Prochlorperazine Edisylate 5 mg Q4HPRN PRN IV 06/19/24 23:15 Hold Dextrose 50 ml UD PRN IV 06/20/24 00:30 Vancomycin HCl 125 mg QID PO 06/20/24 18:00 06/24/24 11:18 125 MG Saccharomyces Boulardii 250 mg DAILY PO 06/21/24 10:00 06/24/24 09:03 250 MG Metronidazole 100 ml @ 100 mls/hr Q8HR IV 06/20/24 14:32 06/24/24 13:45 100 MLS/HR Acetaminophen/ Hydrocodone Bitart 1 tab Q6HPRN PRN PO 06/21/24 11:45 06/24/24 13:49 1 TAB Diphenhydramine HCl 25 mg Q6HP PRN PO 06/21/24 14:45 06/22/24 11:25 25 MG Dextrose/Sodium Chloride 1,000 ml @ 75 mls/hr [id number] IV 06/22/24 11:00 06/23/24 13:44 75 MLS/HR Enoxaparin Sodium 40 mg DAILY SC 06/24/24 10:00 06/24/24 09:03 40 MG Examination Physical examination: General Appearance: Alert, Oriented X3, Cooperative, No acute distress HEENT: Atraumatic, PERRLA, EOMI, Mucous membrane moist/pink Respiratory: Clear to auscultation, Normal air movement Cardiovascular: Regular rate, Normal S1, Normal S2, No murmurs, no chest wall tenderness Abdominal: Normal bowel sounds, Soft, No tenderness, No hepatospenomegaly, No masses Extremities: No clubbing, No cyanosis, No edema, Normal pulses, No tenderness/swelling Skin: Bilateral hyperpigmented rashes in torso, No breakdown, No significant lesion Neuro: Normal gait, Normal speech, Strength at 5/5 X4 ext, Normal tone, Sensation intact, grossly intact cranial nerves. Psych/Mental Status: Mental status NL, Mood NL laboratory and microbiology Laboratory Tests 06/24/24 06:13 Test 06/24/24 06:13 Range/Units Serum Glucose 84 74-106 mg/dL Microbiology Date/Time Source Procedure Growth Status 06/19/24 23:50 Stool Stool Culture - Final Complete 06/19/24 23:50 Stool Shiga Toxin I & II - Final Complete 06/19/24 23:50 Stool Clostridium difficile Toxin Assay - Final Complete Labs and/or images reviewed: Labs reviewed by me, Image(s) reviewed by me Problem List/Assessment/Plan Problem List/Assessment/Plan Assessment/Plan Acute Diarrhea due to C-diff infection Gastric adenocarcinoma (based on pathology report, from a biopsy on 03/03/24), likely metastasis to the perigastric lymph nodes. - Patient is followed by Dr. Dc, started chemotherapy on 05/07, last chemotherapy was on 06/11/2024. (current chemotherapy fluorouracil, leucovorin, oxaliplatin, docetaxel), has got 3 sessions of chemo (fluorouracil) so far. - Upper GI endoscopy, from 03/03, shows 7-8 cm gastric mass in the fundus which was friable polypoid with central ulceration with oozing and with increased bleeding - CT scan shows, gastric mass (83 mm) with multiple enlarged gastrohepatic lymph nodes likely represent metastatic disease - IV D5W/0.9% at 75 ml/hr - C-Diff toxin positive and stool studies negative for E.coli, shiga toxin and camylobacter. -Continue Vancomycin 125 mg po q.i.d, metronidazole IV 500 mg Q 8 hours and probiotics daily. - GI evaluated the patient and recommended continue current management and outpatient follow up - Consulted infectious disease and awaiting for their recommendation. Chronic microcytic Hypochromic anaemia secondary to malignancy/ chemotherapy Thrombocytopenia due to above - Monitor H/H and transfuse if needed Petechial rashes - There are diffuse reticular petechial rashes on the body, more on bilateral flank and hip - Wound consult - Benadryl 25 mg po once and q6h p.r.n. Type 2 diabetes mellitus, HbA1C 6.7 om 06/03/24 - Mild sliding scale of insulin. -Monitor Blood glucose closely Hypertensive heart Disease - Continue benazepril 20 mg daily Dyslipidemia - Continue atorvastatin 10 mg daily Moderate to severe protein malnutrition - Albumin is 2.5 - Counseled patient regarding healthy diet and lifestyle modification. Diet: Consistent carbohydrate diet DVT prophylaxis: Lovenox 40 mg SC daily. Plan discussed with Dr. Mann Plan discussed with: Patient, Other My Orders My Orders Orders - KIRAN FORDE Procedure Category Date Status Time Enoxaparin Sodium PHA 06/24/24 In Process (Lovenox) 10:00 KIRAN FORDE Jun 24, 2024 16:53
[2024-06-25] VITALS (8 sets, daily range): BP systolic 138–144; BP diastolic 74–92; PULSE 72–99; RESP 14–18; TEMP 36.4; O2SAT 95–100
[2024-06-25 06:07] LABS: Hematocrit 25.3 % (41.0-53.0); Hemoglobin 7.9 g/dL (13.5-17.5); Mean Corpuscular Hemoglobin 23.4 pg (28.0-32.0); Mean Corpuscular Hgb Conc. 31.4 g/dL (32.0-36.0); Mean Corpuscular Volume 74.6 fL (80.0-100.0); Platelet Count (auto) 145 10^3/uL (140-450); Red Blood Cells 3.39 10^6/uL (4.5-5.90); Red Cell Distribution Width 19.3 % (11.8-14.3); White Blood Cell 15.8 10^3/uL (4.4-10.8)
[2024-06-25 06:10] LABS: Basophils % (manual) 0 (0.0-2.0); Blast Cells 0; Eosinophils % (manual) 0 (0-7); Metamyelocytes % 0; Myelocytes % 0; Promyelocytes % 0; Reactive Lymphocytes 0
[2024-06-25 06:46] LABS: Band Neutrophils % (manual) 6; Hypochromia Moderate; Lymphocytes % (manual) 10 (10.0-50.0); Monocytes % (manual) 7 (0-12); Platelet Estimate Adequate
[2024-06-25 06:47] LABS: Anisocytosis Slight; Large Platelets FEW
[2024-06-25] MEDS ORDERED: SACC1CAP3 PO ×2 (10:33→11:20)
[2024-06-25] MEDS ORDERED: VANC125PO PO (10:33)
[2024-06-25] MEDS ORDERED: FAMO20TA10 PO (10:33)
[2024-06-25] MEDS ORDERED: METR-344 PO (10:33)
[2024-06-25] MEDS ORDERED: DIPH25CA66 PO (10:33)
[2024-06-25] MEDS: FAMOTIDINE 20 MG TAB PO ONE (10:44)
[2024-06-25] MEDS: MAGNESIUM SULFATE 1GM/100ML 100 ML IV ONE (10:44)
[2024-06-25 12:02] LABS: Alanine Aminotransferase 14 U/L (7-40); Anion Gap 4 (5-15); Aspartate Aminotransferase 40 U/L (13-40); BUN/Creatinine Ratio 17.5 (10.0-20.0); Blood Urea Nitrogen 10 mg/dL (9-23); Carbon Dioxide 29 mmol/L (20-31); Chloride 104 mmol/L (98-107); Glucose 86 mg/dL (74-106); Sodium 137 mmol/L (136-145)
[2024-06-25 12:12] LABS: Alkaline Phosphatase 120 U/L (46-116); Bilirubin, Total 0.2 mg/dL (0.2-1.0); Calcium 7.4 mg/dL (8.7-10.4); Potassium 3.4 mmol/L (3.5-5.1); Total Protein 3.8 g/dL (5.7-8.2)
[2024-06-25] MEDS: KETOROLAC TROMETH 30 MG/ML 1ML VIAL IV ONE (15:15)
[2024-06-25 16:22] LABS: Basophils # (auto) 0.1 10 ^3/uL (0-0.2); Basophils % (auto) 0.5 % (0.0-2.0); Eosinophils # (auto) 0 10 ^3/uL (0-0.8); Hematocrit 27.6 % (41.0-53.0); Hemoglobin 8.6 g/dL (13.5-17.5); Lymphocytes # (auto) 1.5 10 ^3/uL (0.4-5.4); Lymphocytes % (auto) 7.9 % (10.0-50.0); Mean Corpuscular Hemoglobin 23.8 pg (28.0-32.0); Mean Corpuscular Volume 76.8 fL (80.0-100.0); Monocytes # (auto) 0.6 10 ^3/uL (0-1.3); Monocytes % (auto) 3.4 % (0.0-12.0); Neutrophils # (auto) 16.3 10 ^3/uL (1.6-8.6); Neutrophils % (auto) 88.2 % (37.0-80.0); Nucleated Red Blood Cells % 0.5 %; Platelet Count (auto) 158 10^3/uL (140-450); Red Blood Cells 3.59 10^6/uL (4.5-5.90); White Blood Cell 18.5 10^3/uL (4.4-10.8)
[2024-06-25 16:23] LABS: Red Cell Distribution Width 20.4 % (11.8-14.3)
[2024-06-25] MEDS: POTASSIUM CHL 20 Meq TABLET PO ONE (18:47)
--- NOTE | 2024-06-25 19:25 | DVHDSRES ---
Discharge Summary Date of Admission Resident Creating Document: KIRAN FORDE RESIDENT Jun 19, 2024 at 22:17 Date of Discharge: Jun 25, 2024 Admitting Diagnosis Acute diarrhoea likely secondary to chemotherapy/ infectious Wounds: No wound was present. Labs/Diagnostic Data: Laboratory Results Test 06/25/24 17:35 06/25/24 15:43 06/25/24 12:32 06/25/24 06:13 White Blood Count 18.5 10^3/uL (4.4-10.8) Red Blood Count 3.59 10^6/uL (4.5-5.90) Hemoglobin 8.6 g/dL (13.5-17.5) Hematocrit 27.6 % (41.0-53.0) Mean Corpuscular Volume 76.8 fL (80.0-100.0) Mean Corpuscular Hemoglobin 23.8 pg (28.0-32.0) Mean Corpuscular Hemoglobin Concent 31.0 g/dL (32.0-36.0) Red Cell Distribution Width 20.4 % (11.8-14.3) Platelet Count 158 10^3/uL (140-450) Mean Platelet Volume 6.8 fL (6.9-10.8) Neutrophils (%) (Auto) 88.2 % (37.0-80.0) Lymphocytes (%) (Auto) 7.9 % (10.0-50.0) Monocytes (%) (Auto) 3.4 % (0.0-12.0) Eosinophils (%) (Auto) 0.0 % (0.0-7.0) Basophils (%) (Auto) 0.5 % (0.0-2.0) Neutrophils # (Auto) 16.3 10 ^3/uL (1.6-8.6) Lymphocytes # (Auto) 1.5 10 ^3/uL (0.4-5.4) Monocytes # (Auto) 0.6 10 ^3/uL (0-1.3) Eosinophils # (Auto) 0 10 ^3/uL (0-0.8) Basophils # (Auto) 0.1 10 ^3/uL (0-0.2) Nucleated Red Blood Cells 0.5 % POC Glucose 145 mg/dl (70-106) Sodium Level 137 mmol/L (136-145) Potassium Level 3.4 mmol/L (3.5-5.1) Chloride Level 104 mmol/L (98-107) Carbon Dioxide Level 29 mmol/L (20-31) Anion Gap 4 (5-15) Blood Urea Nitrogen 10 mg/dL (9-23) Creatinine 0.57 mg/dL (0.700-1.30) Glomerular Filtration Rate Calc 112 mL/min (>90) BUN/Creatinine Ratio 17.5 (10.0-20.0) Serum Glucose 86 mg/dL (74-106) Calcium Level 7.4 mg/dL (8.7-10.4) Total Bilirubin 0.2 mg/dL (0.2-1.0) Aspartate Amino Transferase (AST) 40 U/L (13-40) Alanine Aminotransferase (ALT) 14 U/L (7-40) Alkaline Phosphatase 120 U/L (46-116) Total Protein 3.8 g/dL (5.7-8.2) Albumin 2.0 g/dL (3.2-4.8) Test 06/25/24 05:04 06/23/24 05:59 06/19/24 23:50 06/19/24 23:30 Differential Total Cells Counted 100.0 (100) Neutrophils % (Manual) 77 (37.0-80.0) Band Neutrophils % (Manual) 6 Lymphocytes % (Manual) 10 (10.0-50.0) Monocytes % (Manual) 7 (0-12) Eosinophils % (Manual) 0 (0-7) Basophils % (Manual) 0 (0.0-2.0) Metamyelocytes % (manual) 0 Myelocytes % (Manual) 0 Promyelocytes % (Manual) 0 Blast Cells % (Manual) 0 Reactive Lymphocytes 0 Platelet Estimate Adequate Large Platelets Few Hypochromasia (manual) Moderate Anisocytosis (manual) Slight Microcytosis Moderate [place] Cells Few Schistocytes Few Magnesium Level 1.6 mg/dL (1.6-2.6) Stool Occult Blood Negative (Negative) Lactic Acid Level 0.7 mmol/L (0.4-2.0) Iron Level 14 ug/dL (65-175) Total Iron Binding Capacity 216 ug/dL (250-425) Percent Iron Saturation 6.5 % (20-55) Ferritin 83.5 ng/mL (22-322) Test 06/19/24 18:00 Urine Color Yellow (Yellow) Urine Clarity Turbid (Clear) Urine pH 6.0 (5.0-9.0) Urine Specific [place] 1.026 (1.001-1.035) Urine Protein 1+ (Negative) Urine Ketones Negative (Negative) Urine Blood Negative /uL (Negative) Urine Nitrite Negative (Negative) Urine Bilirubin Negative (Negative) Urine Urobilinogen Normal mg/dL (Negative) Urine Leukocyte Esterase Negative /uL (Negative) Urine RBC 1 /hpf (0 - 3) Urine Microscopic WBC 3 /HPF (0-3) Urine Squamous Epithelial Cells Few /hpf (<5) Urine Bacteria None seen /hpf (None Seen) Urine Hyaline Casts Few /lpf (0 - 2) Urine Mucus Moderate (None Seen) Urine Glucose Trace mg/dL (Normal) Other Laboratory Tests 06/25/24 15:43 06/25/24 06:13 Brief Hx & Hospital Course: This is a 63-year-old male with past medical history of gastric adenocarcinoma on chemotherapy (the patient has had three sessions so far with fluorouracil injections and has upcoming sessions of leucovorin, oxaliplatin, docetaxel) , diabetes mellitus, hypertension, hyperlipidemia, came to the hospital due to diarrhea and abdominal pain for 3 days prior to this admission. Patient states that diarrhea started since starting of chemotherapy for gastric adenocarcinoma but has worsened since 3 days that prompted this visit. Diarrhoea is watery, nonbloody, brown in color and almost 20 episodes per day and also associated with mild abdominal pain, generalized weakness and generalized eczematous rashes in the trunk. Hospital course: Gastric adenocarcinoma (based on pathology report, from a biopsy on 03/03/24), likely metastasis to the perigastric lymph nodes. - Patient is followed by Dr. Dc, started chemotherapy on 05/07, last chemotherapy was on 06/11/2024. (current chemotherapy fluorouracil, leucovorin, oxaliplatin, docetaxel), has got 3 sessions of chemo (fluorouracil) so far. - Upper GI endoscopy, from 03/03, shows 7-8 cm gastric mass in the fundus which was friable polypoid with central ulceration with oozing and with increased bleeding - CT scan shows, gastric mass (83 mm) with multiple enlarged gastrohepatic lymph nodes likely represent metastatic disease. Stool study was positive for C diff toxin was treated with oral vancomycin 125 mg p.o. q.i.d., IV metronidazole 500 mg t.i.d., probiotic 250 mg daily. GI evaluated the patient and recommended continue current management and outpatient follow up. initially after started the treatment the patient has more than 4 episodes of bowel movement and today mentioned 1 episode of bowel movement since morning. Spoke with patient oncologist over phone and advised to reschedule the chemotherapy. Discharge plan was discussed with the patient and all questions were answered. Patient is being discharged to home. Discharge diagnosis: Acute Diarrhea due to C-diff infection Gastric adenocarcinoma (based on pathology report, from a biopsy on 03/03/24), likely metastasis to the perigastric lymph nodes and on chemotherapy Chronic microcytic Hypochromic anaemia secondary to malignancy/ chemotherapy Thrombocytopenia due to above Petechial rashes Type 2 diabetes mellitus, HbA1C 6.7 om 06/03/24 Hypertensive heart Disease Dyslipidemia Moderate to severe protein malnutrition Discharge Plan: Disposition: Home Medication: vancomycin 125 mg p.o. q.i.d. for 5 days, metronidazole 500 mg t.i.d. for 5 days and probiotic 250 mg daily for 2 weeks, lisinopril 2.5 mg daily for 30 days Follow up: DC clinic in 1 week Out- patient oncology for reschedule chemotherapy session Consults/Reason for consult GI and Infectious disease were consulted Operations or Procedures CLINICAL HISTORY: 63 years old, Male; persistent diarrhea and abdominal pain. TECHNIQUE: Single AP supine abdominal radiograph was obtained COMPARISON: None FINDINGS: Nonspecific gas-filled nondilated small bowel loops and gas visualized throughout the colon. No significant calcifications are seen. No significant stool burden suggest constipation. IMPRESSION: Nonspecific nonobstructive bowel gas pattern as described above. Exam: CT CT AB PEL WO CON-NO ORAL OR IV History: pain Comparison Study: CT CT AB PEL WO CON-NO ORAL OR IV on DOS: 06/02/24, CT CT ABD PELVIS W CON-ORAL IV on DOS: 05/15/24, CT CT AB PEL WO CON-NO ORAL OR IV on DOS: 05/10/24 Technique: Multidetector spiral CT of the abdomen and pelvis was performed from lung bases to pubic symphysis. Imaging was performed without IV contrast. Axial, coronal and sagittal multiplanar reformats were obtained from the axial data set by the technologist. Radiation dose : Abdomen/Pelvis: CTDIvol 7 mGy, DLP 442 mGy*cm. Findings: Evaluation of solid organs is limited due to lack of intravenous contrast use. Lung Bases: Mild atelectasis and ground-glass opacity in the lung bases. Liver: The liver is normal in size. No focal lesions. Gallbladder and biliary Tree: Unremarkable Spleen: Unremarkable Pancreas: The pancreas is grossly normal in appearance. Adrenal Glands: Unremarkable Kidneys: Kidneys are grossly normal without calculi or hydronephrosis. Bladder: Grossly unremarkable for degree of distention. Bowel: There is an abnormal appearance of the stomach with significant wall thickening of the fundus and a possible ulcerated mass measuring up to 83 mm. Small bowel is nondilated. There is wall thickening of the transverse, descending, and rectosigmoid colon. Appendix is mildly prominent without secondary signs of acute appendicitis. Ascites: Trace abdominal ascites. Lymphadenopathy: Multiple enlarged gastrohepatic lymph nodes measuring up to at least 27 mm. Abdominal wall and Mesentery: Roxanne mesentery with subcentimeter mesenteric lymph nodes. Vasculature: The visualized abdominal aorta is normal in size and caliber. Evaluation of abdominal and pelvic vessels is limited due to lack of intravenous contrast. Pelvic Organs: Unremarkable Musculoskeletal: No aggressive focal bony lesions, acute fractures or dislocation. IMPRESSION: 1. Evaluation is limited without intravenous contrast. Findings are again highly suggestive a gastric malignancy with ulceration. Mass measures up to 83 mm. Multiple enlarged gastrohepatic lymph nodes likely represent metastatic disease. Diffuse abnormal appearance of the colon from the transverse colon to the rectum. Colitis or underlying colonic malignancy is not excluded. Clinical correlation and continued follow-up is recommended. Condition at Discharge: Guarded Final Diagnosis/Problems List Acute Diarrhea due to C-diff infection Gastric adenocarcinoma (based on pathology report, from a biopsy on 03/03/24), likely metastasis to the perigastric lymph nodes and on chemotherapy Chronic microcytic Hypochromic anaemia secondary to malignancy/ chemotherapy Thrombocytopenia due to above Petechial rashes Type 2 diabetes mellitus, HbA1C 6.7 om 06/03/24 Hypertensive heart Disease Dyslipidemia Moderate to severe protein malnutrition Discharge Disposition: Home Discharge Instruct/Medications Diet: Cardiac 2g Na,low cholest Activity: No Restrictions, As Tolerated Follow Up/Referral: Follow up with the DC clinic in 1 week. Follow up with the hemato-oncology to reschedule chemotherapy appointment. Medications: As per EMR Discharge Statement: "Patient was advised to return to the ER or call 911 if any headaches, dizziness, shortness of breath, chest pain, abdominal pain, bleeding, fevers, or worsening of medical condition. Patient was counseled about treatment plan, medications, possible side effects, patientverbalized understanding. All questions were answered to the best of my ability. This discharge took greater then 30 minutes in planning, reviewing documentation, counseling the patient, and discussing with other team members." ASSESSMENT ASSESSMENT Assessment Acute Diarrhea due to C-diff infection Gastric adenocarcinoma (based on pathology report, from a biopsy on 03/03/24), likely metastasis to the perigastric lymph nodes and on chemotherapy Chronic microcytic Hypochromic anaemia secondary to malignancy/ chemotherapy Thrombocytopenia due to above Petechial rashes Type 2 diabetes mellitus, HbA1C 6.7 om 06/03/24 Hypertensive heart Disease Dyslipidemia Moderate to severe protein malnutrition KIRAN FORDE RESIDENT Jun 25, 2024 19:25
--- NOTE | 2024-06-25 19:45 | DVHINCON2 ---
Date of service: Jun 24, 2024 Past Medical History The patients chart and medications were reviewed in detail and the patient was seen and examined. History obtained from: patient Daryl is a 63 y.o. male with a history of gastric adenocarcinoma on chemotherapy, type 2 diabetes, hypertension, hyperlipidemia, and he is a former smoker. Patient reports chronic, watery diarrhea approximately 78 times daily for the past three days, ever since starting chemotherapy. He describes bloating but denies nausea or vomiting. He has a purpuric rash on bilateral ankles and hip area. He is allergic to amoxicillin. He has no recent fevers. On admission, labs were significant for WBC 14.8, H/H 11/8.9, platelets 142, sodium 137, BUN 17, creatinine 0.68, lactic acid 0.7, calcium 7.5. Stool studies revealed a toxigenic C. difficile B gene and were negative for Shiga toxins, E. coli, Salmonella, Shigella, and Campylobacter. A recent CT abdomen/pelvis confirmed a large gastric mass with probable metastatic disease and colonic findings suspicious for colitis versus potential malignancy. The patient has been on metronidazole IV and oral vancomycin since 06/20 without significant clinical improvement. Past Medical History: Gastric adenocarcinoma (currently on chemotherapy radiation) Type 2 diabetes Hypertension Hyperlipidemia Past Surgical History History reviewed. No pertinent surgical history reported in the transcript. Family History: FHx: colon cancer G8 MOTHER (UNKNOWN MEDICAL HISTORY), Hypertension G8 FATHER (HTN), Social History - Ex-smoker - Denies alcohol or IV drug use - Walker-dependent Allergies: Coded Allergies: Amoxicillin (Verified Allergy, Severe, 06/03/24) Home Meds Active Scripts Sucralfate (Carafate) 1 Gm/10 Ml Alysha, 10 ML PO BID for 14 Days, #120 ML 1 Refill Prov:KIRAN FORDE [facility] 06/26/24 Pantoprazole Sodium Sesquihydr (Protonix) 40 Mg Tab, 40 MG PO BID for 14 Days, #28 TAB Prov:KIRAN FORDE RESIDENT 06/26/24 Metronidazole (Flagyl) 500 Mg Tab, 1 TAB PO TID for 10 Days, #30 TAB Prov:KIRAN FORDE RESIDENT 06/26/24 Vancomycin Hcl (Vancomycin Po) 125 Mg So, 500 MG PO QID for 10 Days, #40 TAB Prov:KIRAN FORDE RESIDENT 06/26/24 Yeast (S. Boulardii)(S. Cerevi (Probiotic) 250 Mg Cap, 250 MG PO DAILY for 14 Days, #14 CAP Prov:KIRAN FORDE RESIDENT 06/25/24 Diphenhydramine Hcl (Benadryl Allergy) 25 Mg Cap, 1 CAP PO QPM for 7 Days, #7 CAP Prov:ART FORDEHIRA RESIDENT 06/25/24 Famotidine (PEPCID TABLET) 20 Mg Tb, 1 TAB PO BID for 14 Days, #28 TAB 5 Refills Prov:KIRAN FORDE RESIDENT 06/25/24 Reported Medications Loperamide Hcl (Loperamide Hcl) 2 Mg Cap, 2 MG PO Q6HP, MG 06/20/24 Glipizide (Glipizide) 5 Mg Tab, 5 MG PO DAILY, TAB 06/20/24 Diphenoxylate W/ Atropine (Lomotil) 2.5 Mg Tab, 2.5 MG PO, TAB 06/20/24 Benazepril & Hydrochlorothiazi (Benazepril Hydrochloride/ 20-12.5 mg) 1 Tab Tab, 1 TAB PO BID, TAB 06/20/24 Prochlorperazine Maleate (Compazine) 10 Mg Tb, 1 TAB PO Q8HR, #60 TAB 3 Refills 06/20/24 Ondansetron HCl (Ondansetron) 4 Mg Tab, 8 MG SL Q8HPRN, TAB 06/20/24 Linagliptin Base (TRADJENTA) 5 Mg Tab, 1 TAB PO DAILY, #90 TAB 1 Refill 02/28/24 Atorvastatin Calcium (ATORVASTATIN CALCIUM) 10 Mg Tab, 10 MG PO HS 02/28/24 Discontinued Reported Medications Linagliptin Base (TRADJENTA) 5 Mg Tab, 5 MG PO DAILY, TAB 06/20/24 Discontinued Scripts Pantoprazole Sodium Sesquihydr (Protonix) 40 Mg Tab, 40 MG PO BID for 30 Days, #60 TAB 2 Refills Prov:KATHERINE HERNANDEZ RESIDENT 03/02/24 Review of Systems A complete 10 system review of systems was completed and negative except as noted in the HPI or here. CONSTITUTIONAL: Denies fever or chills HEENT: Denies changes in vision or hearing RESPIRATORY: Denies shortness of breath or cough CV: Denies chest pain or palpitations GI: Reports watery diarrhea, denies nausea or vomiting : Denies dysuria or urinary frequency MSK: Walker-dependent, denies joint pain SKIN: Purpuric rash on bilateral ankles and hip area NEUROLOGICAL: Denies headache or syncope PSYCHIATRIC: Denies anxiety or depression Vital Signs Vital Signs Date Time Temp Pulse Resp B/P (MAP) Pulse Ox O2 Delivery O2 Flow Rate FiO2 06/25/24 16:30 98.0 94 16 140/83 (102) 98 98.0 06/25/24 08:00 Room Air* 0 21 Labs/Diagnostic Data Labs Test 06/25/24 17:35 06/25/24 15:43 06/25/24 12:32 06/25/24 06:13 Range/Units White Blood Count 18.5 H 4.4-10.8 10^3/uL Red Blood Count 3.59 L 4.5-5.90 10^6/uL Hemoglobin 8.6 L 13.5-17.5 g/dL Hematocrit 27.6 L 41.0-53.0 % Mean Corpuscular Volume 76.8 L 80.0-100.0 fL Mean Corpuscular Hemoglobin 23.8 L 28.0-32.0 pg Mean Corpuscular Hemoglobin Concent 31.0 L 32.0-36.0 g/dL Red Cell Distribution Width 20.4 H 11.8-14.3 % Platelet Count 158 140-450 10^3/uL Mean Platelet Volume 6.8 L 6.9-10.8 fL Neutrophils (%) (Auto) 88.2 H 37.0-80.0 % Lymphocytes (%) (Auto) 7.9 L 10.0-50.0 % Monocytes (%) (Auto) 3.4 0.0-12.0 % Eosinophils (%) (Auto) 0.0 0.0-7.0 % Basophils (%) (Auto) 0.5 0.0-2.0 % Neutrophils # (Auto) 16.3 H 1.6-8.6 10 ^3/uL Lymphocytes # (Auto) 1.5 0.4-5.4 10 ^3/uL Monocytes # (Auto) 0.6 0-1.3 10 ^3/uL Eosinophils # (Auto) 0 0-0.8 10 ^3/uL Basophils # (Auto) 0.1 0-0.2 10 ^3/uL Nucleated Red Blood Cells 0.5 % POC Glucose 145 H 70-106 mg/dl Sodium Level 137 136-145 mmol/L Potassium Level 3.4 L 3.5-5.1 mmol/L Chloride Level 104 98-107 mmol/L Carbon Dioxide Level 29 20-31 mmol/L Anion Gap 4 L 5-15 Blood Urea Nitrogen 10 9-23 mg/dL Creatinine 0.57 L 0.700-1.30 mg/dL Glomerular Filtration Rate Calc 112 >90 mL/min BUN/Creatinine Ratio 17.5 10.0-20.0 Serum Glucose 86 74-106 mg/dL Calcium Level 7.4 L 8.7-10.4 mg/dL Total Bilirubin 0.2 0.2-1.0 mg/dL Aspartate Amino Transferase (AST) 40 13-40 U/L Alanine Aminotransferase (ALT) 14 7-40 U/L Alkaline Phosphatase 120 H 46-116 U/L Total Protein 3.8 L 5.7-8.2 g/dL Albumin 2.0 L 3.2-4.8 g/dL Test 06/25/24 05:04 06/23/24 05:59 06/19/24 23:50 06/19/24 23:30 Range/Units Differential Total Cells Counted 100.0 100 Neutrophils % (Manual) 77 37.0-80.0 Band Neutrophils % (Manual) 6 Lymphocytes % (Manual) 10 10.0-50.0 Monocytes % (Manual) 7 0-12 Eosinophils % (Manual) 0 0-7 Basophils % (Manual) 0 0.0-2.0 Metamyelocytes % (manual) 0 Myelocytes % (Manual) 0 Promyelocytes % (Manual) 0 Blast Cells % (Manual) 0 Reactive Lymphocytes 0 Platelet Estimate Adequate Large Platelets Few Hypochromasia (manual) Moderate Anisocytosis (manual) Slight Microcytosis Moderate Jae Cells Few Schistocytes Few Magnesium Level 1.6 1.6-2.6 mg/dL Stool Occult Blood Negative Negative Lactic Acid Level 0.7 0.4-2.0 mmol/L Iron Level 14 L 65-175 ug/dL Total Iron Binding Capacity 216 L 250-425 ug/dL Percent Iron Saturation 6.5 L 20-55 % Ferritin 83.5 22-322 ng/mL Test 06/19/24 18:00 Range/Units Urine Color Yellow Yellow Urine Clarity Turbid H Clear Urine pH 6.0 5.0-9.0 Urine Specific [place] 1.026 1.001-1.035 Urine Protein 1+ H Negative Urine Ketones Negative Negative Urine Blood Negative Negative /uL Urine Nitrite Negative Negative Urine Bilirubin Negative Negative Urine Urobilinogen Normal Negative mg/dL Urine Leukocyte Esterase Negative Negative /uL Urine RBC 1 0 - 3 /hpf Urine Microscopic WBC 3 0-3 /HPF Urine Squamous Epithelial Cells Few <5 /hpf Urine Bacteria None seen None Seen /hpf Urine Hyaline Casts Few 0 - 2 /lpf Urine Mucus Moderate None Seen Urine Glucose Trace Normal mg/dL Microbiology Date/Time Source Procedure Growth Status 06/19/24 23:50 Stool Stool Culture - Final Complete 06/19/24 23:50 Stool Shiga Toxin I & II - Final Complete 06/19/24 23:50 Stool Clostridium difficile Toxin Assay - Final Complete General: NAD Neck: Supple. No masses. HEENT: PERRL. Normal lids and conjunctiva. Moist mucous membranes. Oropharynx without lesions, exudates or excessive erythema. Normal appearance of the external aspects of the nose and ears. Heart: Regular rhythm, normal rate. No murmur. No lower extremity edema. Lungs: Normal respiratory effort. Clear to auscultation bilaterally. No wheezes. No crackles. Abdomen: Soft. Non-tender. Non-distended. No masses or abdominal hernia. Msk: No digital cyanosis. Normal strength and tone in all 4 limbs. Walker dependent. Skin: Warm and dry, purpuric rash on bilateral ankles and hip area. Neuro: Alert. No facial droop or slurred speech. Extra-ocular movements intact. Sensation intact to soft touch in all 4 limbs. Psych: Appropriate mood. Full affect. Oriented to person, place, time, and situation. Assessment ASSESSMENT AND PLAN: ID Problem List: -Gastric adenocarcinoma -Chronic diarrhea -Toxigenic C. difficile positivity -Type 2 diabetes -Hypertension -Hyperlipidemia -Purpuric rash Assessment This is a 63 y.o. male with a past medical history of gastric adenocarcinoma on chemotherapy, type 2 diabetes, hypertension, and hyperlipidemia, who presents with persistent non-bloody diarrhea for several days. Stool studies are positive for a toxigenic C. difficile B gene. Laboratory data is notable for leukocytosis (WBC 14.8), platelets 142, calcium 7.5. The differential diagnosis for his diarrhea includes C. difficile infection, chemotherapy-induced diarrhea, radiation proctitis, and possible colonic involvement by malignancy. Plan: Continue metronidazole (Flagyl) and oral vancomycin Send out cytotoxin assay for C. difficile confirmation Consider increasing oral vancomycin dose if no clinical improvement Limit other antibiotic use Defer management of malignancy to Hematology/Oncology Monitor for further infection or other causes of colitis Evaluate need for repeat imaging to assess for disease progression Isolation Precautions: standard Assessment and plan was discussed with the patient as written above Plan is subject to change pending incorporation of new incoming information/diagnostics. Updates may be added as addendum at the bottom (OR TOP) of this note Thank you for interesting consult. ID will continue to follow. Please contact Infectious disease for any questions or concerns. Problems(with codes): (1) Gastric adenocarcinoma (2) Chronic diarrhea (3) Type 2 diabetes mellitus (4) C. difficile colitis (5) Hypertension (6) Hyperlipemia (7) Rash (8) Gastric malignant neoplasm Plan discussed with: Other LEIGHA COPELAND MD Jun 25, 2024 19:45
--- NOTE | 2024-06-25 21:31 | DVHPN2 ---
Consult Progress Note Date Seen: Jun 25, 2024 Subjective Patient reports: Other (still has persistant diarrhea, mildly distended abdomen , 6 bowel movements in last 24 hours , having some bloating ) Objective vital signs Vital Sign Date Time Temp Pulse Resp B/P (MAP) Pulse Ox O2 Delivery O2 Flow Rate FiO2 06/25/24 16:30 98.0 94 16 140/83 (102) 98 98.0 06/25/24 08:00 Room Air* 0 21 Total Intake and Output 06/24/24 06/24/24 06/25/24 14:59 22:59 06:59 Intake Total 100 ml 920 ml 1100 ml Balance 100 ml 920 ml 1100 ml medications Current Medications Medications Dose Ordered Sig/Polina Route Start Time Stop Time Status Last Admin Dose Admin Ondansetron HCl 4 mg Q4HPRN PRN IV 06/19/24 23:15 Hold Atorvastatin Calcium 10 mg HS PO 06/20/24 22:00 06/24/24 21:50 10 MG Prochlorperazine Edisylate 5 mg Q4HPRN PRN IV 06/19/24 23:15 Hold Dextrose 50 ml UD PRN IV 06/20/24 00:30 Saccharomyces Boulardii 250 mg DAILY PO 06/21/24 10:00 06/25/24 10:44 250 MG Metronidazole 100 ml @ 100 mls/hr Q8HR IV 06/20/24 14:32 06/25/24 13:08 100 MLS/HR Acetaminophen/ Hydrocodone Bitart 1 tab Q6HPRN PRN PO 06/21/24 11:45 06/24/24 23:02 1 TAB Diphenhydramine HCl 25 mg Q6HP PRN PO 06/21/24 14:45 06/24/24 21:50 25 MG Dextrose/Sodium Chloride 1,000 ml @ 75 mls/hr [id number] IV 06/22/24 11:00 06/24/24 23:03 75 MLS/HR Enoxaparin Sodium 40 mg DAILY SC 06/24/24 10:00 06/25/24 10:44 40 MG Vancomycin HCl 500 mg QID PO 06/25/24 22:00 General: NAD Neck: Supple. No masses. HEENT: PERRL. Normal lids and conjunctiva. Moist mucous membranes. Oropharynx without lesions, exudates or excessive erythema. Normal appearance of the external aspects of the nose and ears. Heart: Regular rhythm, normal rate. No murmur. No lower extremity edema. Lungs: Normal respiratory effort. Clear to auscultation bilaterally. No wheezes. No crackles. Abdomen: Soft. Non-tender. Non-distended. No masses or abdominal hernia. Msk: No digital cyanosis. Normal strength and tone in all 4 limbs. Walker dependent. Skin: Warm and dry, purpuric rash on bilateral ankles and hip area. Neuro: Alert. No facial droop or slurred speech. Extra-ocular movements intact. Sensation intact to soft touch in all 4 limbs. Psych: Appropriate mood. Full affect. Oriented to person, place, time, and situation. laboratory and microbiology Laboratory Tests 06/25/24 15:43 06/25/24 06:13 Test 06/25/24 06:13 Range/Units Serum Glucose 86 74-106 mg/dL Problem List/Assessment/Plan Problems(with codes): (1) C. difficile colitis (2) Gastric adenocarcinoma (3) Type 2 diabetes mellitus (4) Hypertension (5) Chronic diarrhea (6) Hyperlipemia (7) Rash Problem List/Assessment/Plan ASSESSMENT AND PLAN: ID Problem List: Gastric adenocarcinoma Chronic diarrhea Toxigenic C. difficile positivity Type 2 diabetes Hypertension Hyperlipidemia Purpuric rash Assessment This is a 63 y.o. male with a past medical history of gastric adenocarcinoma on chemotherapy, type 2 diabetes, hypertension, and hyperlipidemia, who presents with persistent non-bloody diarrhea for several days. Stool studies are positive for a toxigenic C. difficile B gene. Laboratory data is notable for leukocytosis (WBC 14.8), platelets 142, calcium 7.5. The differential diagnosis for his diarrhea includes C. difficile infection, chemotherapy-induced diarrhea, radiation proctitis, and possible colonic involvement by malignancy. 06/25: whitecount is 16 Plan: Recommend increasing oral vancomycin to 500 milligrams QID Continue metronidazole (Flagyl) and oral vancomycin Send out cytotoxin assay for C. difficile confirmation Limit other antibiotic use Defer management of malignancy to Hematology/Oncology Monitor for further infection or other causes of colitis Evaluate need for repeat imaging to assess for disease progression Plan discussed with: Other LEIGHA COPELAND MD Jun 25, 2024 21:31
[2024-06-25] MEDS: VANCOMYCIN HCL 250 MG CAP PO SCH (21:36)
[2024-06-25] MEDS: PROCHLORPERAZINE EDISYLATE 5 MG/ML 2ML VIAL IV PRN (21:58)
[2024-06-26 01:00] VITALS: BP 137/74; PULSE 99; RESP 18; O2SAT 98
[2024-06-26 05:00] VITALS: BP 140/82; PULSE 94; RESP 17; TEMP 98; O2SAT 98
--- NOTE | 2024-06-26 07:58 | ECG ---
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
[2024-06-26 08:00] VITALS: RESP 18; O2SAT 95
[2024-06-26 09:00] VITALS: BP 136/72; PULSE 80; RESP 17; TEMP 97.7; O2SAT 100
[2024-06-26 10:21] LABS: Basophils # (auto) 0.1 10 ^3/uL (0-0.2); Basophils % (auto) 0.3 % (0.0-2.0); Eosinophils # (auto) 0 10 ^3/uL (0-0.8); Hemoglobin 9.1 g/dL (13.5-17.5); Monocytes # (auto) 0.6 10 ^3/uL (0-1.3); Neutrophils % (auto) 84.7 % (37.0-80.0)
[2024-06-26 10:23] LABS: Hematocrit 29.3 % (41.0-53.0); Lymphocytes # (auto) 2.8 10 ^3/uL (0.4-5.4); Lymphocytes % (auto) 12.2 % (10.0-50.0); Mean Corpuscular Hemoglobin 23.9 pg (28.0-32.0); Mean Corpuscular Volume 77.4 fL (80.0-100.0); Monocytes % (auto) 2.8 % (0.0-12.0); Neutrophils # (auto) 19.5 10 ^3/uL (1.6-8.6); Nucleated Red Blood Cells % 0.2 %; Platelet Count (auto) 212 10^3/uL (140-450); Red Blood Cells 3.78 10^6/uL (4.5-5.90); Red Cell Distribution Width 19.8 % (11.8-14.3)
[2024-06-26 10:28] LABS: Chloride 105 mmol/L (98-107); Potassium 3.9 mmol/L (3.5-5.1)
[2024-06-26 10:29] LABS: Anion Gap 5 (5-15); Carbon Dioxide 25 mmol/L (20-31)
[2024-06-26 10:34] LABS: Blood Urea Nitrogen 9 mg/dL (9-23)
[2024-06-26 10:48] LABS: Calcium 7.5 mg/dL (8.7-10.4); Glucose 141 mg/dL (74-106); Sodium 135 mmol/L (136-145)
[2024-06-26] MEDS ORDERED: PANT40TA2 PO (12:34)
[2024-06-26] MEDS ORDERED: SUCR1SUS5 PO (12:34)
[2024-06-26] MEDS ORDERED: VANC125PO PO (12:34)
[2024-06-26] MEDS ORDERED: METR-344 PO (12:34)
[2024-06-26 13:00] VITALS: BP 123/72; PULSE 89; RESP 16; TEMP 97.9; O2SAT 100
--- NOTE | 2024-06-26 18:53 | DVHPNRES ---
Progress Note Date Seen: Jun 26, 2024 Resident Creating Document: KIRAN FORDE RESIDENT Has the PT tested + for MRSA If YES, has PT been informed?: No Medical Necessity Reason Pt with a Central, PICC or Fol: No Subjective Review of Systems This is a 63-year-old male with past medical history of gastric adenocarcinoma on chemotherapy (the patient has had three sessions so far with fluorouracil injections and has upcoming sessions of leucovorin, oxaliplatin, docetaxel) , diabetes mellitus, hypertension, hyperlipidemia, came to the hospital due to diarrhea and abdominal pain for 3 days prior to this admission. Patient states that diarrhea started since starting of chemotherapy for gastric adenocarcinoma but has worsened since 3 days that prompted this visit. Diarrhoea is watery, nonbloody, brown in color and almost 20 episodes per day and also associated with mild abdominal pain, generalized weakness and generalized eczematous rashes in the trunk. Patient seen and examined at bedside. The patient is alert and oriented in person, place and time. Mentioned feeling better and 1 bowel movement since morning. evaluated the patient and recommended vancomycin p.o. 500 mg q.i.d. and continuation of the same dose of metronidazole and probiotic and also ordered Clostridium difficile toxin B. Objective vital signs Vital Sign Date Time Temp Pulse Resp B/P (MAP) Pulse Ox O2 Delivery O2 Flow Rate FiO2 06/26/24 13:00 97.9 89 16 123/72 (89) 100 97.9 06/26/24 08:00 Room Air* 0 21 Total Intake and Output 06/25/24 06/25/24 06/26/24 15:00 23:00 07:00 Intake Total 200 ml 1300 ml Balance 200 ml 1300 ml Examination Physical examination: General Appearance: Alert, Oriented X3, Cooperative, No acute distress HEENT: Atraumatic, PERRLA, EOMI, Mucous membrane moist/pink Respiratory: Clear to auscultation, Normal air movement Cardiovascular: Regular rate, Normal S1, Normal S2, No murmurs, no chest wall tenderness Abdominal: Normal bowel sounds, Soft, No tenderness, No hepatospenomegaly, No masses Extremities: No clubbing, No cyanosis, No edema, Normal pulses, No tenderness/swelling Skin: Bilateral hyperpigmented rashes in torso, No breakdown, No significant lesion Neuro: Normal gait, Normal speech, Strength at 5/5 X4 ext, Normal tone, Sensation intact, grossly intact cranial nerves. Psych/Mental Status: Mental status NL, Mood NL laboratory and microbiology Laboratory Tests 06/26/24 09:29 Test 06/26/24 09:29 Range/Units Serum Glucose 141 H 74-106 mg/dL Microbiology Date/Time Source Procedure Growth Status 06/19/24 23:50 Stool Stool Culture - Final Complete 06/19/24 23:50 Stool Shiga Toxin I & II - Final Complete 06/19/24 23:50 Stool Clostridium difficile Toxin Assay - Final Complete Labs and/or images reviewed: Labs reviewed by me, Image(s) reviewed by me Problem List/Assessment/Plan Problem List/Assessment/Plan Assessment/Plan Acute Diarrhea due to C-diff infection Gastric adenocarcinoma (based on pathology report, from a biopsy on 03/03/24), likely metastasis to the perigastric lymph nodes. - Patient is followed by Dr. Dc, started chemotherapy on 05/07, last chemotherapy was on 06/11/2024. (current chemotherapy fluorouracil, leucovorin, oxaliplatin, docetaxel), has got 3 sessions of chemo (fluorouracil) so far. - Upper GI endoscopy, from 03/03, shows 7-8 cm gastric mass in the fundus which was friable polypoid with central ulceration with oozing and with increased bleeding - CT scan shows, gastric mass (83 mm) with multiple enlarged gastrohepatic lymph nodes likely represent metastatic disease - IV D5W/0.9% at 75 ml/hr - C-Diff toxin positive and stool studies negative for E.coli, shiga toxin and camylobacter. -Continue Vancomycin 500 mg po q.i.d, metronidazole IV 500 mg Q 8 hours and probiotics daily as per infectious disease recommendation. - GI evaluated the patient and recommended continue current management and outpatient follow up Chronic microcytic Hypochromic anaemia secondary to malignancy/ chemotherapy Thrombocytopenia due to above - Monitor H/H and transfuse if needed Petechial rashes - There are diffuse reticular petechial rashes on the body, more on bilateral flank and hip - Wound consult - Benadryl 25 mg po once and q6h p.r.n. Type 2 diabetes mellitus, HbA1C 6.7 om 06/03/24 - Mild sliding scale of insulin. -Monitor Blood glucose closely Hypertensive heart Disease - Continue benazepril 20 mg daily Dyslipidemia - Continue atorvastatin 10 mg daily Moderate to severe protein malnutrition - Albumin is 2.5 - Counseled patient regarding healthy diet and lifestyle modification. Diet: Consistent carbohydrate diet DVT prophylaxis: Lovenox 40 mg SC daily. Plan discussed with Dr. Mann Plan discussed with: Patient, Other My Orders My Orders Orders - KIRAN FORDE Procedure Category Date Status Time Discharge DISCHARGE 06/26/24 Transmitted 12:30 KIRAN FORDE Jun 26, 2024 18:53
--- NOTE | 2024-06-27 11:54 | DVHPN2 ---
Consult Progress Note Date Seen: Jun 26, 2024 Subjective Patient reports: Other (bowel movements have improved , having large Bms black and liquidly . no abdominal pain ) Objective vital signs Vital Sign Date Time Temp Pulse Resp B/P (MAP) Pulse Ox O2 Delivery O2 Flow Rate FiO2 06/26/24 13:00 97.9 89 16 123/72 (89) 100 97.9 06/26/24 08:00 Room Air* 0 21 medications General: NAD Neck: Supple. No masses. HEENT: PERRL. Normal lids and conjunctiva. Moist mucous membranes. Oropharynx without lesions, exudates or excessive erythema. Normal appearance of the external aspects of the nose and ears. Heart: Regular rhythm, normal rate. No murmur. No lower extremity edema. Lungs: Normal respiratory effort. Clear to auscultation bilaterally. No wheezes. No crackles. Abdomen: Soft. Non-tender. Non-distended. No masses or abdominal hernia. Msk: No digital cyanosis. Normal strength and tone in all 4 limbs. Walker dependent. Skin: Warm and dry, purpuric rash on bilateral ankles and hip area. Neuro: Alert. No facial droop or slurred speech. Extra-ocular movements intact. Sensation intact to soft touch in all 4 limbs. Psych: Appropriate mood. Full affect. Oriented to person, place, time, and situation. laboratory and microbiology Laboratory Tests 06/26/24 09:29 Test 06/26/24 09:29 Range/Units Serum Glucose 141 H 74-106 mg/dL Problem List/Assessment/Plan Problems(with codes): (1) Chronic diarrhea (2) Gastric adenocarcinoma (3) Abdominal pain (4) Anemia (5) Melena (6) GI bleed (7) C. difficile colitis (8) Type 2 diabetes mellitus (9) Hypertension Problem List/Assessment/Plan ASSESSMENT AND PLAN: ID Problem List: Gastric adenocarcinoma Chronic diarrhea Toxigenic C. difficile positivity Type 2 diabetes Hypertension Hyperlipidemia Purpuric rash Assessment This is a 63 y.o. male with a past medical history of gastric adenocarcinoma on chemotherapy, type 2 diabetes, hypertension, and hyperlipidemia, who presents with persistent non-bloody diarrhea for several days. Stool studies are positive for a toxigenic C. difficile B gene. Laboratory data is notable for leukocytosis (WBC 14.8), platelets 142, calcium 7.5. The differential diagnosis for his diarrhea includes C. difficile infection, chemotherapy-induced diarrhea, radiation proctitis, and possible colonic involvement by malignancy. 06/25: whitecount is 16 06/26: whitecount is 23 Plan: continue monitoring while in patient to assure new vancomycin dose is accurately treating patient due to high amount of C diff and may require othodoxamycin but can hold off from now continue oral vancomycin to 500 milligrams QID Continue metronidazole (Flagyl) Follow up on cytotoxin assay for C. difficile confirmation Limit other antibiotic use Defer management of malignancy to Hematology/Oncology Monitor for further infection or other causes of colitis Evaluate need for repeat imaging to assess for disease progression Plan discussed with: LEIGHA Singletary MD Jun 27, 2024 11:54
== END 2024-06-26 14:06 | disposition home or self-care (01) | DRG 248 ==
LOC: EDBD 13:34 → ER 13:34 → OVERFLOW 22:17 → EAST 06-20 15:03
PROVIDERS: ADMIT Student in an Organized Health Care Education/Training Program; ATTEND Student in an Organized Health Care Education/Training Program
DX: A04.72 Enterocolitis due to Clostridium difficile, not specified as recurrent (principal); E43 Unspecified severe protein-calorie malnutrition; C16.9 Malignant neoplasm of stomach, unspecified; D69.59 Other secondary thrombocytopenia; E09.65 Drug or chemical induced diabetes mellitus with hyperglycemia; E87.1 Hypo-osmolality and hyponatremia; E87.8 Other disorders of electrolyte and fluid balance, not elsewhere classified; I11.9 Hypertensive heart disease without heart failure; D64.81 Anemia due to antineoplastic chemotherapy; E78.5 Hyperlipidemia, unspecified; E86.0 Dehydration; T45.1X5A Adverse effect of antineoplastic and immunosuppressive drugs, initial encounter; Z80.0 Family history of malignant neoplasm of digestive organs; Z68.24 Body mass index [BMI] 24.0-24.9, adult; Z82.49 Family history of ischemic heart disease and other diseases of the circulatory system; Z85.028 Personal history of other malignant neoplasm of stomach; Z88.0 Allergy status to penicillin; Z87.891 Personal history of nicotine dependence; Y92.89 Other specified places as the place of occurrence of the external cause
CPT/HCPCS: 36415; 74018; 74176; 80048; 80053; 81001; 82270; 82728; 82962; 83540; 83550; 83605; 83735; 85007; 85025; 85027; 86850; 86900; 86901; 87045; 87427; 87493; 93005; G0378; J1885; J2405; J2470; J3490

== ENCOUNTER 2024-06-27 09:05 | Inpatient (IN) | payer MEDICAID ==
[2024-06-27] VITALS (12 sets, daily range): BP systolic 116–149; BP diastolic 68–76; PULSE 70–97; RESP 12–28; TEMP 97.7–98.6; O2SAT 98
[~2024-06-27] VITALS: Ht 157.5 cm; Wt 77.1 kg
[~2024-06-27 09:05] MED LIST changes: +BENA-27 PO; -BENA20TA PO; +DIPH2.5T73 PO; +DIPH25CA66 PO; +FAMO20TA10 PO; -GLIP10TA9 PO; +GLIP5TAB21 PO; +LOPE2CAP PO; -METF-371 PO; +METR-344 PO; +ONDA-155 SL; +PROC10TA6 PO; +SACC1CAP3 PO; +SUCR1SUS5 PO; +VANC125PO PO
--- NOTE | 2024-06-27 09:29 | ED.PDOC ---
GI ASSESSMENT HPI Comments 63 year old male brought in by EMS presents to the ED with a chief complaint of abdominal pain onset today. Patient states he was admitted at this hospital for the past 8 days, was discharged yesterday and went to see PCP today for follow- up. Patient explained to PCP he was experiencing abdominal pain as well as diarrhea, black with blood, as well as generalized weakness, palpitations and PCP called EMS. PMHx cancer, HTN, anemia, DM, HLD. Denies chest pain, shortness of breath, headache, nausea, vomiting. No other symptoms or modifying factors present at this time. Chief Complaint: Palpitations Time Seen by MD: 09:15 Primary Care Provider: geovanny Palomo Notes: Medications, Allergies Allergies: Coded Allergies: Amoxicillin (Verified Allergy, Severe, 06/03/24) Home Meds Active Scripts Sucralfate (Carafate) 1 Gm/10 Ml Alysha, 10 ML PO BID for 14 Days, #120 ML 1 [facility] 06/26/24 Pantoprazole Sodium Sesquihydr (Protonix) 40 Mg Tab, 40 MG PO BID for 14 Days, #28 TAB [facility]/26/24 Metronidazole (Flagyl) 500 Mg Tab, 1 TAB PO TID for 10 Days, #30 TAB [facility] 06/26/24 Vancomycin Hcl (Vancomycin Po) 125 Mg So, 500 MG PO QID for 10 Days, #40 TAB Prov:[facility] 06/26/24 Yeast (S. Boulardii)(S. Cerevi (Probiotic) 250 Mg Cap, 250 MG PO DAILY for 14 Days, #14 CAP [facility] 06/25/24 Diphenhydramine Hcl (Benadryl Allergy) 25 Mg Cap, 1 CAP PO QPM for 7 Days, #7 CAP Prov[facility] 06/25/24 Famotidine (PEPCID TABLET) 20 Mg Tb, 1 TAB PO BID for 14 Days, #28 TAB 5 [facility]ills [facility] 06/25/24 Reported Medications Loperamide Hcl (Loperamide Hcl) 2 Mg Cap, 2 MG PO Q6HP, MG 06/20/24 Glipizide (Glipizide) 5 Mg Tab, 5 MG PO DAILY, TAB 06/20/24 Diphenoxylate W/ Atropine (Lomotil) 2.5 Mg Tab, 2.5 MG PO, TAB 06/20/24 Benazepril & Hydrochlorothiazi (Benazepril Hydrochloride/ 20-12.5 mg) 1 Tab Tab, 1 TAB PO BID, TAB 06/20/24 Prochlorperazine Maleate (Compazine) 10 Mg Tb, 1 TAB PO Q8HR, #60 TAB 3 Refills 06/20/24 Ondansetron HCl (Ondansetron) 4 Mg Tab, 8 MG SL Q8HPRN, TAB 06/20/24 Linagliptin Base (TRADJENTA) 5 Mg Tab, 1 TAB PO DAILY, #90 TAB 1 Refill 02/28/24 Atorvastatin Calcium (ATORVASTATIN CALCIUM) 10 Mg Tab, 10 MG PO HS 02/28/24 Discontinued Reported Medications Linagliptin Base (TRADJENTA) 5 Mg Tab, 5 MG PO DAILY, TAB 06/20/24 Benazepril Hcl (Lotensin) 20 Mg Tab, 1 TAB PO DAILY, #30 TAB 5 Refills 02/28/24 Glipizide (Glipizide) 10 Mg Tab, 1 TAB PO DAILY, #60 TAB 5 Refills 02/28/24 Metformin Hydrochloride (Metformin Hcl) 850 Mg Tab, 1 TAB PO DAILY, #60 TAB 5 Refills 02/28/24 Discontinued Scripts Pantoprazole Sodium Sesquihydr (Protonix) 40 Mg Tab, 40 MG PO BID for 30 Days, #60 TAB 2 Refills Prov:KATHERINE HERNANDEZ RESIDENT 03/02/24 Information Source: Patient, Emergency Med Personnel, Spouse Mode of Arrival: EMS Timing: Hours Duration: Since onset Prehospital treatment: None Quality: Aching Vomitus: None Stool: Blood Streaked, Watery, Black Severity: Moderate Recent: Antibiotics Recent Hx of: None Pain Location: Diffuse Modifying Factors: Nothing Associated sign and symptoms: Melena, Abdominal Pain, Blood in Stool Past Medical History PAST MEDICAL HISTORY: Anemia, Cancer, DM, High Lipids Family History Family History: Reviewed,noncontributory to illness Social History Smoker: Quit Greater Than 1 Year Alcohol: Denies ETOH Use Drugs: Denies Drug Use Lives In: Home Constitutional: reports: weakness; denies: chills, diaphoresis, fatigue, fever, malaise, sweats, others EENTM: denies: blurred vision, double vision, ear bleeding, ear discharge, ear drainage, ear pain, ear ringing, eye pain, eye redness, hearing loss, mouth pain, mouth swelling, nasal discharge, nose bleeding, nose congestion, nose pain, photophobia, tearing, throat pain, throat swelling, voice changes, others Respiratory: denies: cough, hemoptysis, orthopnea, SOB at rest, shortness of breath, SOB with excertion, stridor, wheezing, others Cardiovascular: reports: palpitations; denies: chest pain, dizzy spells, diaphoresis, Dyspnea on exertion, edema, irregular heart beat, left arm pain, lightheadedness, PND, syncope, others Gastrointestinal: reports: abdominal pain, melena, rectal bleeding; denies: abdomen distended, blood streaked bowels, constipated, diarrhea, dysphagia, difficulty swallowing, hematemesis, nausea, poor appetite, poor fluid intake, rectal pain, vomiting, others Genitourinary: denies: burning, dysuria, flank pain, frequency, hematuria, incontinence, penile discharge, penile sore, pain, testicle pain, testicle swelling, urgency, others Neurological: reports: weakness; denies: dizziness, fainting, headache, left sided numbness, left sided weakness, numbness, paresthesia, pre-existing deficit, right sided numbness, right sided weakness, seizure, speech problems, tingling, tremors, others Musculoskeletal: denies: back pain, gout, joint pain, joint swelling, muscle pain, muscle stiffness, neck pain, others Integumetry: denies: bruises, change in color, change in hair/nails, dryness, laceration, lesions, lumps, rash, wounds, others Allergic/Immunocompromised: denies: Difficulty Healing, Frequent Infections, Hives, Itching, others Hematologic/Lymphatic: denies: anemia, blood clots, easy bleeding, easy bruising, swollen glands, others Endocrine: denies: excessive hunger, excessive sweating, excessive thirst, excessive urination, flushing, intolerance to cold, intolerance to heat, unexplained weight gain, unexplained weight loss, others Psychiatric: denies: anxiety, bipolar disorder, depression, hopeless, panic disorder, schizophrenia, sleepless, suicidal, others All Other Systems: Reviewed and Negative Physical Exam General Appearance: No Apparent Distress, Normal HEENT: Normal ENT Inspection, Pharynx Normal, TMs Normal Neck: Full Range of Motion, Non-Tender, Normal, Normal Inspection Respiratory: Chest Non-Tender, Lungs Clear, No Accessory Muscle Use, No Respiratory Distress, Normal Breath Sounds Cardiovascular: No Edema, No JVD, No Murmur, No Gallop, Normal Peripheral Pulses, Regular Rate/Rhythm Breast Exam: Deferred Gastrointestinal: No Organomegaly, Non Tender, No Pulsatile Mass, Normal Bowel Sounds, Soft Genitalia: Deferred Pelvic: Deferred Rectal: Deferred Extremities: No calf tenderness, Normal capillary refill, Normal inspection, Normal range of motion, Non-tender, No pedal edema Musculoskeletal : Apperance: Normal Neurologic: Alert, chili maker II-XII nml as Tested, No Motor Deficits, Normal Affect, Normal Mood, No Sensory Deficits Cerebellar Function: Normal Reflexes: Normal Skin: Dry, Normal Color, Warm Lymphatic: No Adenopathy EKG EKG : Pulse Rate (adult): 147 [place]: Normal Cardiac Rhythm: NSR (84) Comments sinus rhythm with 84 bpm. Was a procedure done? Was a procedure done?: No GI differential Dx Differential Diagnosis: Appendicitis, Complete , Incomplete , Angina/TX, Bowel Obstruction, Cholangitis, Cholecystitis, Constipation, GI hemorrhage, Hernia, Ischemic Bowel, Ovarian cyst/torsion, Pancreatitis, Urinary Obstruction, UTI, Diabetes/ DKA, Electrolyte Imbalance, , Malnutrition, Renal Failure, Esophageal Varicies X-Ray, Labs, Meds, VS Vital Signs Date Time Temp Pulse Resp B/P (MAP) Pulse Ox O2 Delivery O2 Flow Rate FiO2 06/27/24 09:28 147 06/27/24 09:15 98.0 82 18 142/70 (94) 98 06/27/24 09:10 84 Lab Test 06/27/24 11:25 06/27/24 09:36 Range/Units Iron Level Pending Total Iron Binding Capacity Pending Percent Iron Saturation Pending White Blood Count 17.0 #H 4.4-10.8 10^3/uL Red Blood Count 2.99 L 4.5-5.90 10^6/uL Hemoglobin 7.3 #L 13.5-17.5 g/dL Hematocrit 22.8 #L 41.0-53.0 % Mean Corpuscular Volume 76.0 L 80.0-100.0 fL Mean Corpuscular Hemoglobin 24.4 L 28.0-32.0 pg Mean Corpuscular Hemoglobin Concent 32.0 32.0-36.0 g/dL Red Cell Distribution Width 20.4 H 11.8-14.3 % Platelet Count 190 140-450 10^3/uL Mean Platelet Volume 6.7 L 6.9-10.8 fL Neutrophils (%) (Auto) 83.4 H 37.0-80.0 % Lymphocytes (%) (Auto) 11.9 10.0-50.0 % Monocytes (%) (Auto) 4.4 0.0-12.0 % Eosinophils (%) (Auto) 0.1 0.0-7.0 % Basophils (%) (Auto) 0.2 0.0-2.0 % Neutrophils # (Auto) 14.2 H 1.6-8.6 10 ^3/uL Lymphocytes # (Auto) 2.0 0.4-5.4 10 ^3/uL Monocytes # (Auto) 0.8 0-1.3 10 ^3/uL Eosinophils # (Auto) 0 0-0.8 10 ^3/uL Basophils # (Auto) 0 0-0.2 10 ^3/uL Nucleated Red Blood Cells 0.0 % Reticulocyte Count (auto) 4.26 H 0.5-1.5 % Prothrombin Time 11.4 9.3-11.8 sec Prothrombin Time INR 1.08 0.9-1.15 Activated Partial Thromboplast Time 26.5 24.5-34.5 SEC D-Dimer, Quantitative 0.46 0.0-0.49 mg/L FEU Sodium Level 134 L 136-145 mmol/L Potassium Level 3.7 3.5-5.1 mmol/L Chloride Level 103 98-107 mmol/L Carbon Dioxide Level 27 20-31 mmol/L Anion Gap 4 L 5-15 Blood Urea Nitrogen 18 9-23 mg/dL Creatinine 0.62 L 0.700-1.30 mg/dL Glomerular Filtration Rate Calc 109 >90 mL/min BUN/Creatinine Ratio 29.0 H 10.0-20.0 Serum Glucose 105 74-106 mg/dL Calcium Level 7.4 L 8.7-10.4 mg/dL Magnesium Level 1.7 1.6-2.6 mg/dL Ferritin 23.1 22-322 ng/mL Total Bilirubin 0.2 0.2-1.0 mg/dL Aspartate Amino Transferase (AST) 44 H 13-40 U/L Alanine Aminotransferase (ALT) 16 7-40 U/L Alkaline Phosphatase 148 H 46-116 U/L Lactate Dehydrogenase Pending Troponin I High Sensitivity < 3 L </=54 ng/L Total Protein 4.3 L 5.7-8.2 g/dL Albumin 2.4 L 3.2-4.8 g/dL Current Medications Medications (Trade) Dose Ordered Sig/Polina Route Start Time Stop Time Status Last Admin Sodium Chloride 1,000 ml @ 1,000 mls/hr Q1H ONCE IV 06/27/24 10:30 06/27/24 11:29 DC 06/27/24 10:38 Loratadine (Claritin Tablet) 10 mg ONCE STAT PO 06/27/24 10:48 06/27/24 10:54 DC 06/27/24 11:10 Piperacillin Sod/ Tazobactam Sod 100 ml @ 100 mls/hr ONCE ONCE IV 06/27/24 11:15 06/27/24 12:14 06/27/24 11:17 Acetaminophen (Tylenol Tablet) 650 mg ONCE ONCE PO 06/27/24 11:15 06/27/24 11:16 DC 06/27/24 11:11 X-Ray, Labs, Meds, VS Comment This 63-year-old male was discharged from our facility yesterday. Review of the notes with the patient was admitted secondary to diarrhea that began after he started chemotherapy for his gastric adenocarcinoma. The patient follow up with his PCP this morning who stated the patient looks unwell and sent him here. The patient was no new complaints. He continues endorsed diarrhea that he states he was intermittently dark and tarry for greater than 1 month. He feels weak, has intermittent abdominal pain, intermittent palpitations. This has been going on for greater than 1 week.. I reviewed the labs from previous admission, it appears his hemoglobin dropped 2 points since yesterday. Additionally, the pa tient was new leukocytosis. He was also has protein malnutrition. He will be typed, crossed and transfused. He will also be admitted for further workup management of his likely active GI bleeding. Time of 1ST Reevaluation: 09:45 Reevaluation 1ST: Unchanged Patient Education/Counseling: Diagnosis, Treatment, Prognosis Family Education/Counseling: Diagnosis, Treatment, Prognosis Additional Information The following tests were ordered, and results were reviewed by me: CBC, CMP, MAGNESIUM, PTPTT, D-DIMER, UA, TROP, EKG Additional Information was gathered from interviewing the following independent historians: EMS and I discussed treatment and results with medical personnel and patient, Departure 1 Departure Time of Disposition: 12:05 Impression: Primary Impression: Abdominal pain Additional Impressions: Gastric adenocarcinoma Melena Anemia GI bleed Disposition: ADMITTED INPATIENT Admit to: Med Surg Condition: Guarded Critical Care Note Critical Care Time?: No Stability Stability form required: No Heart Score Heart Score: Heart Score Response (Comments) Value History N/A 0 EKG N/A 0 Age N/A 0 Risk Factors N/A 0 Troponin N/A 0 Total 0 I personally scribed for SHANTHI DE LEON MD ([email or web address]) on 06/27/24 at 09:28. Electronically submitted by Remedios Scott ([email or web address]). I personally scribed for SHANTHI DE LEON MD ([email or web address]) on 06/27/24 at 09:31. Electronically submitted by Remedios Scott ([email or web address]). SHANTHI DE LEON MD Jun 27, 2024 09:28
[2024-06-27 09:49] LABS: Basophils # (auto) 0 10 ^3/uL (0-0.2); Basophils % (auto) 0.2 % (0.0-2.0); Eosinophils # (auto) 0 10 ^3/uL (0-0.8); Eosinophils % (auto) 0.1 % (0.0-7.0); Hematocrit 22.8 % (41.0-53.0); Hemoglobin 7.3 g/dL (13.5-17.5); Lymphocytes % (auto) 11.9 % (10.0-50.0); Mean Corpuscular Hemoglobin 24.4 pg (28.0-32.0); Monocytes # (auto) 0.8 10 ^3/uL (0-1.3); Monocytes % (auto) 4.4 % (0.0-12.0); Neutrophils # (auto) 14.2 10 ^3/uL (1.6-8.6); Neutrophils % (auto) 83.4 % (37.0-80.0); Platelet Count (auto) 190 10^3/uL (140-450); Red Blood Cells 2.99 10^6/uL (4.5-5.90); Red Cell Distribution Width 20.4 % (11.8-14.3)
[2024-06-27 10:02] LABS: Alanine Aminotransferase 16 U/L (7-40); Anion Gap 4 (5-15); Blood Urea Nitrogen 18 mg/dL (9-23); Carbon Dioxide 27 mmol/L (20-31); Chloride 103 mmol/L (98-107); Glucose 105 mg/dL (74-106); Magnesium 1.7 mg/dL (1.6-2.6); Potassium 3.7 mmol/L (3.5-5.1)
[2024-06-27 10:05] LABS: Albumin 2.4 g/dL (3.2-4.8); Alkaline Phosphatase 148 U/L (46-116); Aspartate Aminotransferase 44 U/L (13-40); Bilirubin, Total 0.2 mg/dL (0.2-1.0); Calcium 7.4 mg/dL (8.7-10.4); Sodium 134 mmol/L (136-145); Total Protein 4.3 g/dL (5.7-8.2)
[2024-06-27 10:18] LABS: INR 1.08 (0.9-1.15); Partial Thromboplastin Time 26.5 SEC (24.5-34.5); Prothrombin Time 11.4 sec (9.3-11.8)
[2024-06-27] MEDS: SODIUM CHLORIDE 0.9% 1,000 ML IV ONE (10:38)
[2024-06-27] MEDS ORDERED: ACETAMINOPHEN 500 MG TAB or CAP PO ONE (10:55)
[2024-06-27] MEDS: LORATADINE 10 MG TAB PO STA (11:10)
[2024-06-27] MEDS: ACETAMINOPHEN 325 MG TAB PO ONE (11:11)
[2024-06-27] MEDS: PIPERACILLIN-TAZOB 3.375GM 100 ML IV ONE (11:17)
[2024-06-27 12:05] LABS: % Iron Saturation 7.8 % (20-55)
[2024-06-27 12:49] LABS: Urine Bacteria None Seen /hpf (None Seen)
[2024-06-27 12:59] LABS: Urine Blood Negative /uL (Negative); Urine Clarity Clear (Clear); Urine Color Light-Yellow (Yellow); Urine Protein, UAD Negative (Negative); Urine Specific Gravity 1.008 (1.001-1.035); Urine Squamous Epithelial Cell None Seen /hpf (<5); Urine Urobilinogen Normal (Negative); Urine WBC < 1 /HPF (0-3)
--- NOTE | 2024-06-27 13:32 | DVH ---
CHEST RADIOGRAPH Indication: r/o PNA Technique: Single frontal view of the chest was obtained Comparison: XY CHEST XRAY 1 VIEW on DOS: 05/15/24 FINDINGS: Lines and Tubes: right chest port catheter with tip in the cavoatrial junction. Lungs: No focal consolidation. Pleura: No effusion. No pneumothorax. Cardiomediastinal contours: Unremarkable Bones: No acute osseous abnormality. IMPRESSION: No acute cardiopulmonary disease.
[2024-06-27] MEDS ORDERED: ACETAMINOPHEN 325 MG TAB PO PRN (14:00)
[2024-06-27] MEDS ORDERED: DOCUSATE SOD 100 MG CAP PO PRN (14:00)
[2024-06-27] MEDS ORDERED: levoFLOXacin 750MG 150 ML IV SCH (14:12)
[2024-06-27] MEDS: SODIUM CHLOR 0.9% PF (SALINE LOCK) 10ML VIAL/SYR IV SCH (14:16)
--- NOTE | 2024-06-27 14:18 | DVHHP2 ---
Admitting Diagnosis: palpitation History of Present Illness 63 year old male brought in by EMS presents to the ED with a chief complaint of abdominal pain onset today. Patient states he was admitted at this hospital for the past 8 days, was discharged yesterday and went to see PCP today for follow- up. Patient explained to PCP he was experiencing abdominal pain as well as diarrhea, black with blood, as well as generalized weakness, palpitations and PCP called EMS. PMHx cancer, HTN, anemia, DM, HLD. Denies chest pain, shortness of breath, headache, nausea, vomiting. No other symptoms or modifying factors present at this time. PAST MEDICAL HISTORY: Anemia, Cancer, DM, High Lipids Family History: Reviewed,noncontributory to illness Smoker: Quit Greater Than 1 Year Alcohol: Denies ETOH Use Drugs: Denies Drug Use Lives In: Home Patient Family History: FHx: colon cancer G8 MOTHER (UNKNOWN MEDICAL HISTORY), Hypertension G8 FATHER (HTN), Allergies: Coded Allergies: Amoxicillin (Verified Allergy, Severe, 06/03/24) Home Meds Active Scripts Sucralfate (Carafate) 1 Gm/10 Ml Alysha, 10 ML PO BID for 14 Days, #120 ML 1 [facility]/24 Pantoprazole Sodium Sesquihydr (Protonix) 40 Mg Tab, 40 MG PO BID for 14 Days, #28 TAB Prov[facility] 06/26/24 Metronidazole (Flagyl) 500 Mg Tab, 1 TAB PO TID for 10 Days, #30 TAB Prov[facility] 06/26/24 Vancomycin Hcl (Vancomycin Po) 125 Mg So, 500 MG PO QID for 10 Days, #40 TAB Prov:[facility] 06/26/24 Yeast (S. Boulardii)(S. Cerevi (Probiotic) 250 Mg Cap, 250 MG PO DAILY for 14 Days, #14 CAP [facility] 06/25/24 Diphenhydramine Hcl (Benadryl Allergy) 25 Mg Cap, 1 CAP PO QPM for 7 Days, #7 CAP Prov[facility] 06/25/24 Famotidine (PEPCID TABLET) 20 Mg Tb, 1 TAB PO BID for 14 Days, #28 TAB 5 Refills Prov:KIRAN FORDE RESIDENT 06/25/24 Reported Medications Loperamide Hcl (Loperamide Hcl) 2 Mg Cap, 2 MG PO Q6HP, MG 06/20/24 Glipizide (Glipizide) 5 Mg Tab, 5 MG PO DAILY, TAB 06/20/24 Diphenoxylate W/ Atropine (Lomotil) 2.5 Mg Tab, 2.5 MG PO, TAB 06/20/24 Benazepril & Hydrochlorothiazi (Benazepril Hydrochloride/ 20-12.5 mg) 1 Tab Tab, 1 TAB PO BID, TAB 06/20/24 Prochlorperazine Maleate (Compazine) 10 Mg Tb, 1 TAB PO Q8HR, #60 TAB 3 Refills 06/20/24 Ondansetron HCl (Ondansetron) 4 Mg Tab, 8 MG SL Q8HPRN, TAB 06/20/24 Linagliptin Base (TRADJENTA) 5 Mg Tab, 1 TAB PO DAILY, #90 TAB 1 Refill 02/28/24 Atorvastatin Calcium (ATORVASTATIN CALCIUM) 10 Mg Tab, 10 MG PO HS 02/28/24 Discontinued Reported Medications Linagliptin Base (TRADJENTA) 5 Mg Tab, 5 MG PO DAILY, TAB 06/20/24 Benazepril Hcl (Lotensin) 20 Mg Tab, 1 TAB PO DAILY, #30 TAB 5 Refills 02/28/24 Glipizide (Glipizide) 10 Mg Tab, 1 TAB PO DAILY, #60 TAB 5 Refills 02/28/24 Metformin Hydrochloride (Metformin Hcl) 850 Mg Tab, 1 TAB PO DAILY, #60 TAB 5 Refills 02/28/24 Discontinued Scripts Pantoprazole Sodium Sesquihydr (Protonix) 40 Mg Tab, 40 MG PO BID for 30 Days, #60 TAB 2 Refills Prov:KATHERINE HERNANDEZ RESIDENT 03/02/24 Current Medications Current Medications Medications (Trade) Dose Ordered Sig/Polina Route PRN Reason Start Time Stop Time Status Last Admin Loratadine (Claritin Tablet) 10 mg ONCE STAT PO 06/27/24 10:48 06/27/24 10:54 DC 06/27/24 11:10 Sodium Chloride (Saline Lock Ns) 10 ml Q8HR IV 06/27/24 14:00 Docusate Sodium (Colace Capsule) 100 mg BIDPRN PRN PO FOR CONSTIPATION 06/27/24 14:00 Acetaminophen (Tylenol Tablet) 650 mg Q6HP PRN PO PAIN SCALE 1-3 OR TEMP>100.4 06/27/24 14:00 Acetaminophen/ Hydrocodone Bitart ([place] 5/325MG Tab) 1 tab Q4HP PRN PO MODERATE PAIN (4-6 PAIN SCALE) 06/27/24 14:00 UNV Ondansetron HCl (Zofran) 4 mg Q4HP PRN IV NAUSEA / VOMITING 06/27/24 14:00 UNV Sucralfate (Carafate Susp) 1 gm BID PO 06/27/24 22:00 UNV Vancomycin HCl 500 mg QID PO 06/27/24 18:00 UNV Saccharomyces Boulardii (Florastor) 250 mg DAILY PO 06/28/24 10:00 UNV Patient Own Medication 10 mg HS PO 06/27/24 22:00 UNV Patient Own Medication 1 tab DAILY PO 06/28/24 10:00 UNV Pantoprazole Sodium (Protonix) 40 mg BID IV 06/27/24 14:15 UNV Vital Signs Vital Signs Date Time Temp Pulse Resp B/P (MAP) Pulse Ox O2 Delivery O2 Flow Rate FiO2 06/27/24 12:00 72 19 149/76 (100) 98 06/27/24 10:10 Room Air* 0 21 06/27/24 09:15 98.0 Physical Exam Gen: 63 y.o. male, wn, wd, resting in bed. NAD. HEENT: AT/NC Heart: Sinus tachycardia Lung: CTA b/l Abd: soft, mild tender to palpitation, non-distended Msk: pedal edema no cyanosis Neuro-awake alert resting comfortably in bed. No focal deficits Results Labs Test 06/27/24 11:25 06/27/24 10:25 06/27/24 09:36 Range/Units Iron Level 16 L 65-175 ug/dL Total Iron Binding Capacity 204 L 250-425 ug/dL Percent Iron Saturation 7.8 L 20-55 % Urine Color Light-yellow Yellow Urine Clarity Clear Clear Urine pH 6.0 5.0-9.0 Urine Specific [place] 1.008 1.001-1.035 Urine Protein Negative Negative Urine Ketones Negative Negative Urine Blood Negative Negative /uL Urine Nitrite Negative Negative Urine Bilirubin Negative Negative Urine Urobilinogen Normal Negative mg/dL Urine Leukocyte Esterase Negative Negative /uL Urine RBC <1 0 - 3 /hpf Urine Microscopic WBC < 1 0-3 /HPF Urine Squamous Epithelial Cells None seen <5 /hpf Urine Bacteria None seen None Seen /hpf Urine Glucose Normal Normal mg/dL White Blood Count 17.0 #H 4.4-10.8 10^3/uL Red Blood Count 2.99 L 4.5-5.90 10^6/uL Hemoglobin 7.3 #L 13.5-17.5 g/dL Hematocrit 22.8 #L 41.0-53.0 % Mean Corpuscular Volume 76.0 L 80.0-100.0 fL Mean Corpuscular Hemoglobin 24.4 L 28.0-32.0 pg Mean Corpuscular Hemoglobin Concent 32.0 32.0-36.0 g/dL Red Cell Distribution Width 20.4 H 11.8-14.3 % Platelet Count 190 140-450 10^3/uL Mean Platelet Volume 6.7 L 6.9-10.8 fL Neutrophils (%) (Auto) 83.4 H 37.0-80.0 % Lymphocytes (%) (Auto) 11.9 10.0-50.0 % Monocytes (%) (Auto) 4.4 0.0-12.0 % Eosinophils (%) (Auto) 0.1 0.0-7.0 % Basophils (%) (Auto) 0.2 0.0-2.0 % Neutrophils # (Auto) 14.2 H 1.6-8.6 10 ^3/uL Lymphocytes # (Auto) 2.0 0.4-5.4 10 ^3/uL Monocytes # (Auto) 0.8 0-1.3 10 ^3/uL Eosinophils # (Auto) 0 0-0.8 10 ^3/uL Basophils # (Auto) 0 0-0.2 10 ^3/uL Nucleated Red Blood Cells 0.0 % Reticulocyte Count (auto) 4.26 H 0.5-1.5 % Prothrombin Time 11.4 9.3-11.8 sec Prothrombin Time INR 1.08 0.9-1.15 Activated Partial Thromboplast Time 26.5 24.5-34.5 SEC D-Dimer, Quantitative 0.46 0.0-0.49 mg/L FEU Sodium Level 134 L 136-145 mmol/L Potassium Level 3.7 3.5-5.1 mmol/L Chloride Level 103 98-107 mmol/L Carbon Dioxide Level 27 20-31 mmol/L Anion Gap 4 L 5-15 Blood Urea Nitrogen 18 9-23 mg/dL Creatinine 0.62 L 0.700-1.30 mg/dL Glomerular Filtration Rate Calc 109 >90 mL/min BUN/Creatinine Ratio 29.0 H 10.0-20.0 Serum Glucose 105 74-106 mg/dL Calcium Level 7.4 L 8.7-10.4 mg/dL Magnesium Level 1.7 1.6-2.6 mg/dL Ferritin 23.1 22-322 ng/mL Total Bilirubin 0.2 0.2-1.0 mg/dL Aspartate Amino Transferase (AST) 44 H 13-40 U/L Alanine Aminotransferase (ALT) 16 7-40 U/L Alkaline Phosphatase 148 H 46-116 U/L Lactate Dehydrogenase 275 H 120-246 U/L Troponin I High Sensitivity < 3 L </=54 ng/L Total Protein 4.3 L 5.7-8.2 g/dL Albumin 2.4 L 3.2-4.8 g/dL Primary Diagnosis Acute blood loss due to GI bleeds History of adenocarcinoma on chemotherapy Melena Acute C diff colitis Plan Hemoglobin dropped from 9-7 Status post2 units PRBC in ED. Trend CBC every 8 hours GI consult PPI 40 mg b.i.d. Continue vanco 500 mg p.o. q.i.d., Zosyn 3.375 q.8 hours or per pharmacy protocol Blood culture, stool culture Monitor for GI bleed Trend H&H q.8 hours Transfusion hemoglobin goal greater than seven Insulin sliding scale fingerstick goal 140-180 Hold antihypertensive during GI bleed Resume home meds Full code SCD for dvt ppx NPO except meds PPI for GI Plan discussed with: Patient Problems List: (1) C. difficile colitis (2) GI bleed Status: Acute (3) Gastric adenocarcinoma (4) Anemia Status: Acute Date of Service: Jun 27, 2024 Billing Provider: CARLOS ALBERTO NEELY MD Common Visit Codes: [id number] INP/OBS CARE (HIGH) CARLOS ALBERTO NEELY MD Jun 27, 2024 14:18
[2024-06-27] MEDS ORDERED: DEXTROSE (50%) 50ML SYRG IV PRN (14:30)
[2024-06-27] MEDS: PANTOPRAZOLE 40 MG/10 ML VIAL INJ IV SCH (14:33)
[2024-06-27] MEDS: InsuLIN REG 1unit/0.01ml Soln (100units/ml) SC SCH (17:00)
[2024-06-27 17:21] LABS: Basophils # (auto) 0.1 10 ^3/uL (0-0.2); Basophils % (auto) 0.4 % (0.0-2.0); Eosinophils # (auto) 0 10 ^3/uL (0-0.8); Eosinophils % (auto) 0.1 % (0.0-7.0); Hematocrit 25.2 % (41.0-53.0); Hemoglobin 7.7 g/dL (13.5-17.5); Lymphocytes # (auto) 1.8 10 ^3/uL (0.4-5.4); Lymphocytes % (auto) 12.9 % (10.0-50.0); Mean Corpuscular Hemoglobin 24.8 pg (28.0-32.0); Mean Corpuscular Hgb Conc. 30.6 g/dL (32.0-36.0); Mean Corpuscular Volume 80.8 fL (80.0-100.0); Monocytes # (auto) 0.6 10 ^3/uL (0-1.3); Monocytes % (auto) 3.9 % (0.0-12.0); Neutrophils # (auto) 11.7 10 ^3/uL (1.6-8.6); Neutrophils % (auto) 82.7 % (37.0-80.0); Nucleated Red Blood Cells % 0.1 %; Platelet Count (auto) 160 10^3/uL (140-450); Red Blood Cells 3.12 10^6/uL (4.5-5.90); White Blood Cell 14.1 10^3/uL (4.4-10.8)
[2024-06-27] MEDS: ACCU-CHEK COMFORT CURVE STRIP VI SCH (17:22)
[2024-06-27 17:24] LABS: Red Cell Distribution Width 21.9 % (11.8-14.3)
[2024-06-27] MEDS ORDERED: VANCOMYCIN HCL 125MG/5ML ORAL SOL PO SCH (18:00)
[2024-06-27] MEDS: VANCOMYCIN HCL 250 MG CAP PO SCH (18:14)
--- NOTE | 2024-06-27 19:15 | ECG ---
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
[2024-06-27 22:17] LABS: Basophils # (auto) 0 10 ^3/uL (0-0.2); Hemoglobin 9.7 g/dL (13.5-17.5); Nucleated Red Blood Cells % 0.2 %
[2024-06-27 22:24] LABS: Basophils % (auto) 0.2 % (0.0-2.0); Eosinophils # (auto) 0 10 ^3/uL (0-0.8); Eosinophils % (auto) 0.1 % (0.0-7.0); Hematocrit 30.5 % (41.0-53.0); Lymphocytes # (auto) 1.8 10 ^3/uL (0.4-5.4); Lymphocytes % (auto) 11.5 % (10.0-50.0); Mean Corpuscular Hgb Conc. 31.8 g/dL (32.0-36.0); Mean Corpuscular Volume 81.5 fL (80.0-100.0); Monocytes # (auto) 0.6 10 ^3/uL (0-1.3); Neutrophils # (auto) 13.3 10 ^3/uL (1.6-8.6); Neutrophils % (auto) 84.2 % (37.0-80.0); Platelet Count (auto) 157 10^3/uL (140-450); Red Blood Cells 3.74 10^6/uL (4.5-5.90); White Blood Cell 15.8 10^3/uL (4.4-10.8)
[2024-06-27 22:26] LABS: Red Cell Distribution Width 21.8 % (11.8-14.3)
[2024-06-27] MEDS: metroNIDAZOLE 500MG/100ML 100 ML IV SCH (22:47)
[2024-06-27] MEDS: ATORVASTATIN 20 MG TAB PO SCH (22:49)
[2024-06-27] MEDS: SUCRALFATE 1 GM/10 ML ORAL SUSP PO SCH (22:49)
[2024-06-28] VITALS (7 sets, daily range): BP systolic 125–136; BP diastolic 71–77; PULSE 71–82; RESP 17–19; TEMP 97.4–98.7; O2SAT 95–100
[2024-06-28] MEDS: HYDROcodone-ACET 5/325MG TAB PO PRN (05:58)
[2024-06-28 07:17] LABS: Basophils # (auto) 0 10 ^3/uL (0-0.2); Eosinophils # (auto) 0 10 ^3/uL (0-0.8); Hemoglobin 9.1 g/dL (13.5-17.5); Monocytes # (auto) 0.6 10 ^3/uL (0-1.3)
[2024-06-28 07:20] LABS: Basophils % (auto) 0.1 % (0.0-2.0); Eosinophils % (auto) 0.1 % (0.0-7.0); Hematocrit 28.1 % (41.0-53.0); Lymphocytes # (auto) 1.6 10 ^3/uL (0.4-5.4); Lymphocytes % (auto) 11.4 % (10.0-50.0); Mean Corpuscular Hemoglobin 26.3 pg (28.0-32.0); Mean Corpuscular Hgb Conc. 32.5 g/dL (32.0-36.0); Mean Corpuscular Volume 80.9 fL (80.0-100.0); Monocytes % (auto) 4.4 % (0.0-12.0); Nucleated Red Blood Cells % 0.2 %; Platelet Count (auto) 162 10^3/uL (140-450); Red Blood Cells 3.47 10^6/uL (4.5-5.90); Red Cell Distribution Width 21.5 % (11.8-14.3); White Blood Cell 14.2 10^3/uL (4.4-10.8)
[2024-06-28 07:39] LABS: Alanine Aminotransferase 14 U/L (7-40); Anion Gap 6 (5-15); Carbon Dioxide 26 mmol/L (20-31); Chloride 106 mmol/L (98-107); Glucose 79 mg/dL (74-106); Sodium 138 mmol/L (136-145)
[2024-06-28 07:41] LABS: Alkaline Phosphatase 122 U/L (46-116); Aspartate Aminotransferase 49 U/L (13-40); Bilirubin, Total 0.3 mg/dL (0.2-1.0); Blood Urea Nitrogen 8 mg/dL (9-23); Calcium 7.5 mg/dL (8.7-10.4); Potassium 3.4 mmol/L (3.5-5.1); Total Protein 3.8 g/dL (5.7-8.2)
[2024-06-28] MEDS: cefTRIAXone 1GM/50ML D5W 50 ML IV SCH (09:29)
[2024-06-28] MEDS: FLORASTOR (S. BOULARDII) 250 MG CAP PO SCH (09:30)
[2024-06-28] MEDS: LINAGLIPTIN BASE 5 MG PO SCH (10:00)
--- NOTE | 2024-06-28 12:30 | DVHINCON2 ---
Date of service: Jun 28, [address] Juarez Reason for Consultation Abdominal pain diarrhea with some blood anemia History of Present Illness This 63-year-old came to the emergency room with complaints of abdominal pain in the epigastrium and left upper quadrant with nausea and diarrhea as well as with bleeding but. Sources generalized weakness Has a history of gastric cancer for which he is on chemotherapy by Dr. Dc Had an EGD done about three months ago which showed a large tumor in the fundus of the stomach with friable mucosa. Stool for C diff and other pathogens has been ordered Past Medical History Gastric cancer hypertension diabetes Past Surgical History None Family History: FHx: colon cancer G8 MOTHER (UNKNOWN MEDICAL HISTORY), Hypertension G8 FATHER (HTN), Family History Noncontributory Social History Denies smoking or drinking Allergies: Coded Allergies: Amoxicillin (Verified Allergy, Severe, 06/03/24) Home Meds Active Scripts Sucralfate (Carafate) 1 Gm/10 Ml Alysha, 10 ML PO BID for 14 Days, #120 ML 1 Refill Prov:[facility] 06/26/24 Pantoprazole Sodium Sesquihydr (Protonix) 40 Mg Tab, 40 MG PO BID for 14 Days, #28 TAB Prov:[facility] 06/26/24 Metronidazole (Flagyl) 500 Mg Tab, 1 TAB PO TID for 10 Days, #30 TAB Prov:[facility] 06/26/24 Vancomycin Hcl (Vancomycin Po) 125 Mg So, 500 MG PO QID for 10 Days, #40 TAB Prov:[facility] 06/26/24 Yeast (S. Boulardii)(S. Cerevi (Probiotic) 250 Mg Cap, 250 MG PO DAILY for 14 Days, #14 CAP Prov:[facility] 06/25/24 Diphenhydramine Hcl (Benadryl Allergy) 25 Mg Cap, 1 CAP PO QPM for 7 Days, #7 CAP Prov:[facility] 06/25/24 Famotidine (PEPCID TABLET) 20 Mg Tb, 1 TAB PO BID for 14 Days, #28 TAB 5 Refills Prov:[facility] 06/25/24 Reported Medications Loperamide Hcl (Loperamide Hcl) 2 Mg Cap, 2 MG PO Q6HP, MG 06/20/24 Glipizide (Glipizide) 5 Mg Tab, 5 MG PO DAILY, TAB 06/20/24 Diphenoxylate W/ Atropine (Lomotil) 2.5 Mg Tab, 2.5 MG PO, TAB 06/20/24 Benazepril & Hydrochlorothiazi (Benazepril Hydrochloride/ 20-12.5 mg) 1 Tab Tab, 1 TAB PO BID, TAB 06/20/24 Prochlorperazine Maleate (Compazine) 10 Mg Tb, 1 TAB PO Q8HR, #60 TAB 3 Refills 06/20/24 Ondansetron HCl (Ondansetron) 4 Mg Tab, 8 MG SL Q8HPRN, TAB 06/20/24 Linagliptin Base (TRADJENTA) 5 Mg Tab, 1 TAB PO DAILY, #90 TAB 1 Refill 02/28/24 Atorvastatin Calcium (ATORVASTATIN CALCIUM) 10 Mg Tab, 10 MG PO HS 02/28/24 Discontinued Reported Medications Linagliptin Base (TRADJENTA) 5 Mg Tab, 5 MG PO DAILY, TAB 06/20/24 Discontinued Scripts Pantoprazole Sodium Sesquihydr (Protonix) 40 Mg Tab, 40 MG PO BID for 30 Days, #60 TAB 2 Refills Prov:KATHERINE HERNANDEZ RESIDENT 03/02/24 Current Medications Current Medications Medications (Trade) Dose Ordered Sig/Polina Route PRN Reason Start Time Stop Time Status Last Admin Sodium Chloride (Saline Lock Ns) 10 ml Q8HR IV 06/27/24 14:00 06/28/24 05:40 Docusate Sodium (Colace Capsule) 100 mg BIDPRN PRN PO FOR CONSTIPATION 06/27/24 14:00 Acetaminophen (Tylenol Tablet) 650 mg Q6HP PRN PO PAIN SCALE 1-3 OR TEMP>100.4 06/27/24 14:00 Acetaminophen/ Hydrocodone Bitart ([place] 5/325MG Tab) 1 tab Q4HP PRN PO MODERATE PAIN (4-6 PAIN SCALE) 06/27/24 14:00 06/28/24 05:58 Ondansetron HCl (Zofran) 4 mg Q4HP PRN IV NAUSEA / VOMITING 06/27/24 14:00 Sucralfate (Carafate Susp) 1 gm BID PO 06/27/24 22:00 06/28/24 09:30 Vancomycin HCl 500 mg QID PO 06/27/24 18:00 06/27/24 14:39 DC Saccharomyces Boulardii (Florastor) 250 mg DAILY PO 06/28/24 10:00 06/28/24 09:30 Atorvastatin Calcium (Lipitor) 10 mg HS PO 06/27/24 22:00 06/27/24 22:49 Patient Own Medication 1 tab DAILY PO 06/28/24 10:00 Pantoprazole Sodium (Protonix) 40 mg BID IV 06/27/24 14:15 06/28/24 09:30 Levofloxacin/ Dextrose 150 ml @ 100 mls/hr DAILY IV 06/27/24 14:12 06/27/24 14:39 DC Diagnostic Test (Pha) (Accu-Chek Comfort Curve T) 1 strip ACHS 06/27/24 17:00 06/28/24 05:49 Insulin Human Regular (InsuLIN R) ACHS SC 06/27/24 17:00 Dextrose 50 ml UD PRN IV Blood Sugar LESS THAN 60 06/27/24 14:30 Ceftriaxone Sodium 50 ml @ 100 mls/hr DAILY@09 IV 06/28/24 09:00 06/28/24 10:26 DC 06/28/24 09:29 Vancomycin HCl (Vancomycin Hydrochloride) 500 mg QID PO 06/27/24 18:00 06/28/24 12:04 Metronidazole 100 ml @ 100 mls/hr Q8HR IV 06/27/24 22:00 06/28/24 05:27 Review of Systems Noncontributory Vital Signs Vital Signs Date Time Temp Pulse Resp B/P (MAP) Pulse Ox O2 Delivery O2 Flow Rate FiO2 06/28/24 08:20 97.8 71 17 132/71 (91) 98 97.8 06/27/24 23:00 Room Air* 0 21 Physical Exam Originally built and nourished male in no acute distress but looks chronically ill and wasted ENT examination mild pallor Neck is supple Lungs clear Cardiovascular underway Abdomen is soft some tenderness in the left upper quadrant and epigastrium with possible mass effect No Rigidity no guarding Neurological grossly intact Labs/Diagnostic Data Labs Test 06/28/24 11:39 06/28/24 06:47 06/28/24 05:25 06/27/24 11:25 Range/Units Stool Occult Blood Positive Negative Stool Occult Blood Sample #3 Negative White Blood Count 14.2 H 4.4-10.8 10^3/uL Red Blood Count 3.47 L 4.5-5.90 10^6/uL Hemoglobin 9.1 L 13.5-17.5 g/dL Hematocrit 28.1 L 41.0-53.0 % Mean Corpuscular Volume 80.9 80.0-100.0 fL Mean Corpuscular Hemoglobin 26.3 L 28.0-32.0 pg Mean Corpuscular Hemoglobin Concent 32.5 32.0-36.0 g/dL Red Cell Distribution Width 21.5 H 11.8-14.3 % Platelet Count 162 140-450 10^3/uL Mean Platelet Volume 7.1 6.9-10.8 fL Neutrophils (%) (Auto) 84.0 H 37.0-80.0 % Lymphocytes (%) (Auto) 11.4 10.0-50.0 % Monocytes (%) (Auto) 4.4 0.0-12.0 % Eosinophils (%) (Auto) 0.1 0.0-7.0 % Basophils (%) (Auto) 0.1 0.0-2.0 % Neutrophils # (Auto) 12.0 H 1.6-8.6 10 ^3/uL Lymphocytes # (Auto) 1.6 0.4-5.4 10 ^3/uL Monocytes # (Auto) 0.6 0-1.3 10 ^3/uL Eosinophils # (Auto) 0 0-0.8 10 ^3/uL Basophils # (Auto) 0 0-0.2 10 ^3/uL Nucleated Red Blood Cells 0.2 % Sodium Level 138 136-145 mmol/L Potassium Level 3.4 L 3.5-5.1 mmol/L Chloride Level 106 98-107 mmol/L Carbon Dioxide Level 26 20-31 mmol/L Anion Gap 6 5-15 Blood Urea Nitrogen 8 #L 9-23 mg/dL Creatinine 0.50 L 0.700-1.30 mg/dL Glomerular Filtration Rate Calc 116 >90 mL/min BUN/Creatinine Ratio 16.0 10.0-20.0 Serum Glucose 79 74-106 mg/dL Calcium Level 7.5 L 8.7-10.4 mg/dL Total Bilirubin 0.3 0.2-1.0 mg/dL Aspartate Amino Transferase (AST) 49 H 13-40 U/L Alanine Aminotransferase (ALT) 14 7-40 U/L Alkaline Phosphatase 122 H 46-116 U/L Total Protein 3.8 L 5.7-8.2 g/dL Albumin 2.0 L 3.2-4.8 g/dL POC Glucose 74 70-106 mg/dl Iron Level 16 L 65-175 ug/dL Total Iron Binding Capacity 204 L 250-425 ug/dL Percent Iron Saturation 7.8 L 20-55 % Test 06/27/24 10:25 06/27/24 09:36 Range/Units Urine Color Light-yellow Yellow Urine Clarity Clear Clear Urine pH 6.0 5.0-9.0 Urine Specific [place] 1.008 1.001-1.035 Urine Protein Negative Negative Urine Ketones Negative Negative Urine Blood Negative Negative /uL Urine Nitrite Negative Negative Urine Bilirubin Negative Negative Urine Urobilinogen Normal Negative mg/dL Urine Leukocyte Esterase Negative Negative /uL Urine RBC <1 0 - 3 /hpf Urine Microscopic WBC < 1 0-3 /HPF Urine Squamous Epithelial Cells None seen <5 /hpf Urine Bacteria None seen None Seen /hpf Urine Glucose Normal Normal mg/dL Reticulocyte Count (auto) 4.26 H 0.5-1.5 % Prothrombin Time 11.4 9.3-11.8 sec Prothrombin Time INR 1.08 0.9-1.15 Activated Partial Thromboplast Time 26.5 24.5-34.5 SEC D-Dimer, Quantitative 0.46 0.0-0.49 mg/L FEU Magnesium Level 1.7 1.6-2.6 mg/dL Ferritin 23.1 22-322 ng/mL Lactate Dehydrogenase 275 H 120-246 U/L Troponin I High Sensitivity < 3 L </=54 ng/L Assessment 63-year-old with a history of gastric cancer with GI bleeding and diarrhea history patient is on chemotherapy for gastric cancer on oxygen and has got anemia and some dark red blood and diarrhea Clinical impression possible GI bleeding from the gastric tumor Possible C diff or other pathology for the diarrhea to be ruled out Plan/Recommendation We will recommend stool studies For O&P C&S and C diff which was already ordered follow the hemoglobin closely PPIs Monitor the hemoglobin and transfuse as needed Feeding is severe may need emergency EGD evaluation or emergency angiogram with embolization His overall prognosis is guarded with a large tumor in the stomach Thank you Dr. Reyes Plan discussed with: Patient SUNDAY REYES MD Jun 28, 2024 12:30
[2024-06-28 14:49] LABS: Basophils # (auto) 0 10 ^3/uL (0-0.2); Basophils % (auto) 0.2 % (0.0-2.0); Eosinophils # (auto) 0 10 ^3/uL (0-0.8); Hematocrit 31.4 % (41.0-53.0); Monocytes # (auto) 0.6 10 ^3/uL (0-1.3); White Blood Cell 16.5 10^3/uL (4.4-10.8)
[2024-06-28 14:51] LABS: Lymphocytes # (auto) 1.7 10 ^3/uL (0.4-5.4); Lymphocytes % (auto) 10.3 % (10.0-50.0); Mean Corpuscular Hemoglobin 26.1 pg (28.0-32.0); Mean Corpuscular Volume 81.5 fL (80.0-100.0); Monocytes % (auto) 3.6 % (0.0-12.0); Neutrophils # (auto) 14.2 10 ^3/uL (1.6-8.6); Neutrophils % (auto) 85.9 % (37.0-80.0); Nucleated Red Blood Cells % 0.1 %; Platelet Count (auto) 180 10^3/uL (140-450); Red Blood Cells 3.85 10^6/uL (4.5-5.90); Red Cell Distribution Width 21.8 % (11.8-14.3)
--- NOTE | 2024-06-28 15:27 | DVHPN2 ---
Subjective patient is hungry. Has ab pain. Notes also retention. Reviewed: Care Plan Changes from previous H/P or p: No Changes (except as ntoed. ) General: No Chills, No Night Sweats; Fatigue Neurological: Weakness Eyes: No Pain, No Vision change Cardiovascular: No Chest Pain, No Palpitations Respiratory: No Cough, No Dry Gastrointestinal: No Nausea, No Vomiting; Abdominal Pain Genitourinary: Retention Skin: No Rash Objective Vitals Vital Signs Date Time Temp Pulse Resp B/P (MAP) Pulse Ox O2 Delivery O2 Flow Rate FiO2 06/28/24 12:15 97.4 82 17 134/77 (96) 99 97.4 06/27/24 23:00 Room Air* 0 21 Intake/Output Intake and Output 06/28/24 07:00 Intake Total 2500 ml Output Total 600 ml Balance 1900 ml Intake Oral 0 ml IV Total 1300 ml Tube Feeding 0 ml Blood Product 1200 ml Other 0 ml Output Urine Total 600 ml Stool Total 0 ml Urine/Stool Mix 0 ml Gastric Drainage Total 0 ml Emesis 0 ml Chest Tube Drainage Total 0 ml Drainage Total 0 ml Other 0 ml # Voids 3 General Appearance: Alert, Oriented X3, Cooperative HEENT: Atraumatic Lungs: Clear to auscultation Cardiovascular: Regular rate, Normal S1, Normal S2 Abdomen: Other (mild tenderness in abdomne. ) Rectal: Deferred Psych/Mental Status: Mental status NL Medications Current Medications Medications Dose Ordered Sig/Polina Route Start Time Stop Time Status Last Admin Dose Admin Sodium Chloride 10 ml Q8HR IV 06/27/24 14:00 06/28/24 14:05 10 ML Docusate Sodium 100 mg BIDPRN PRN PO 06/27/24 14:00 Acetaminophen 650 mg Q6HP PRN PO 06/27/24 14:00 Acetaminophen/ Hydrocodone Bitart 1 tab Q4HP PRN PO 06/27/24 14:00 06/28/24 14:11 1 TAB Ondansetron HCl 4 mg Q4HP PRN IV 06/27/24 14:00 Sucralfate 1 gm BID PO 06/27/24 22:00 06/28/24 09:30 1 GM Saccharomyces Boulardii 250 mg DAILY PO 06/28/24 10:00 06/28/24 09:30 250 MG Atorvastatin Calcium 10 mg HS PO 06/27/24 22:00 06/27/24 22:49 10 MG Patient Own Medication 1 tab DAILY PO 06/28/24 10:00 Pantoprazole Sodium 40 mg BID IV 06/27/24 14:15 06/28/24 09:30 40 MG Diagnostic Test (Pha) 1 strip ACHS 06/27/24 17:00 06/28/24 11:30 1 STRIP Insulin Human Regular ACHS SC 06/27/24 17:00 Dextrose 50 ml UD PRN IV 06/27/24 14:30 Vancomycin HCl 500 mg QID PO 06/27/24 18:00 06/28/24 12:04 500 MG Metronidazole 100 ml @ 100 mls/hr Q8HR IV 06/27/24 22:00 06/28/24 14:11 100 MLS/HR Tamsulosin HCl 0.4 mg QPM PO 06/28/24 18:00 Laboratory Results Laboratory Tests 06/28/24 06:47 06/28/24 14:01 Chemistry Test 06/28/24 06:47 Albumin 2.0 g/dL (3.2-4.8) L Calcium Level 7.5 mg/dL (8.7-10.4) L Total Protein 3.8 g/dL (5.7-8.2) L LFT Test 06/28/24 06:47 Alanine Aminotransferase (ALT) 14 U/L (7-40) Alkaline Phosphatase 122 U/L (46-116) H Aspartate Amino Transferase (AST) 49 U/L (13-40) H Total Bilirubin 0.3 mg/dL (0.2-1.0) Urinalysis Test 06/27/24 10:25 Urine Color Light-yellow (Yellow) Urine Clarity Clear (Clear) Urine pH 6.0 (5.0-9.0) Urine Specific [place] 1.008 (1.001-1.035) Urine Protein Negative (Negative) Urine Ketones Negative (Negative) Urine Blood Negative /uL (Negative) Urine Nitrite Negative (Negative) Urine Bilirubin Negative (Negative) Urine Urobilinogen Normal mg/dL (Negative) Urine Leukocyte Esterase Negative /uL (Negative) Urine RBC <1 /hpf (0 - 3) Urine Microscopic WBC < 1 /HPF (0-3) Urine Squamous Epithelial Cells None seen /hpf (<5) Urine Bacteria None seen /hpf (None Seen) Urine Glucose Normal mg/dL (Normal) Microbiology Microbiology Date/Time Source Procedure Growth Status 06/28/24 02:05 Nose MRSA Screen - Final Complete Assessment/Plan Assessment/Plan Acute blood loss due to GI bleeds - Status post2 units PRBC in ED. adenocarcinoma on chemotherapy Melena Acute C diff colitis Plan CBC daily GI consult - Appreaciate Recs. PPI 40 mg b.i.d. IV metro and oral vanco f/u Blood culture, stool culture Transfusion hemoglobin goal greater than seven Insulin sliding scale fingerstick goal 140-180 Hold antihypertensive during GI bleed Resume home meds Full code SCD for dvt ppx NPO except meds PPI for GI Plan discussed with: Patient My Orders Orders - HELEN WINSTON MD Procedure Category Date Status Time Tamsulosin PHA 06/28/24 In Process Hydrochloride (Flomax) 18:00 Date of Service: Jun 28, 2024 Billing Provider: HELEN WINSTON MD Common Visit Codes: [id number] INP/OBS CARE(HIGH) HELEN WINSTON MD Jun 28, 2024 15:27
[2024-06-28] MEDS: TAMSULOSIN HYDROCHLORIDE 0.4 MG CAP PO SCH (18:36)
[2024-06-28 22:15] LABS: Basophils # (auto) 0 10 ^3/uL (0-0.2); Basophils % (auto) 0.3 % (0.0-2.0); Eosinophils # (auto) 0 10 ^3/uL (0-0.8); Eosinophils % (auto) 0.1 % (0.0-7.0); Monocytes # (auto) 0.7 10 ^3/uL (0-1.3); White Blood Cell 15.3 10^3/uL (4.4-10.8)
[2024-06-28 22:16] LABS: Hemoglobin 9.6 g/dL (13.5-17.5); Lymphocytes # (auto) 1.9 10 ^3/uL (0.4-5.4); Lymphocytes % (auto) 12.6 % (10.0-50.0); Mean Corpuscular Hemoglobin 26.2 pg (28.0-32.0); Mean Corpuscular Volume 81.9 fL (80.0-100.0); Monocytes % (auto) 4.3 % (0.0-12.0); Neutrophils # (auto) 12.6 10 ^3/uL (1.6-8.6); Neutrophils % (auto) 82.7 % (37.0-80.0); Nucleated Red Blood Cells % 0.2 %; Platelet Count (auto) 175 10^3/uL (140-450); Red Blood Cells 3.66 10^6/uL (4.5-5.90); Red Cell Distribution Width 22.4 % (11.8-14.3)
[2024-06-29] VITALS (7 sets, daily range): BP systolic 123–143; BP diastolic 71–81; PULSE 74–82; RESP 17–19; TEMP 97.5–98.7; O2SAT 99–100
[2024-06-29 07:18] LABS: Alanine Aminotransferase 13 U/L (7-40); Anion Gap 6 (5-15); BUN/Creatinine Ratio 11.5 (10.0-20.0); Carbon Dioxide 27 mmol/L (20-31); Chloride 105 mmol/L (98-107); Glucose 80 mg/dL (74-106); Sodium 138 mmol/L (136-145)
[2024-06-29 07:27] LABS: Albumin 2.1 g/dL (3.2-4.8); Alkaline Phosphatase 119 U/L (46-116); Aspartate Aminotransferase 43 U/L (13-40); Bilirubin, Total 0.2 mg/dL (0.2-1.0); Blood Urea Nitrogen 7 mg/dL (9-23); Calcium 7.5 mg/dL (8.7-10.4); Potassium 3.4 mmol/L (3.5-5.1); Total Protein 3.9 g/dL (5.7-8.2)
[2024-06-29 11:27] LABS: Basophils # (auto) 0 10 ^3/uL (0-0.2); Eosinophils # (auto) 0 10 ^3/uL (0-0.8); Monocytes # (auto) 0.6 10 ^3/uL (0-1.3); Nucleated Red Blood Cells % 0.1 %; Red Cell Distribution Width 22.1 % (11.8-14.3)
[2024-06-29 11:28] LABS: Basophils % (auto) 0.3 % (0.0-2.0); Hemoglobin 9.7 g/dL (13.5-17.5); Lymphocytes # (auto) 1.8 10 ^3/uL (0.4-5.4); Lymphocytes % (auto) 13.2 % (10.0-50.0); Mean Corpuscular Hemoglobin 26.8 pg (28.0-32.0); Mean Corpuscular Hgb Conc. 32.1 g/dL (32.0-36.0); Mean Corpuscular Volume 83.4 fL (80.0-100.0); Monocytes % (auto) 4.6 % (0.0-12.0); Neutrophils % (auto) 81.9 % (37.0-80.0); Platelet Count (auto) 175 10^3/uL (140-450); White Blood Cell 13.4 10^3/uL (4.4-10.8)
[2024-06-29 11:47] LABS: Urine Bacteria FEW /hpf (None Seen); Urine Blood Negative /uL (Negative); Urine Clarity Clear (Clear); Urine Color Yellow (Yellow); Urine Mucus FEW (None Seen); Urine Protein, UAD Negative (Negative); Urine Specific Gravity 1.012 (1.001-1.035); Urine Squamous Epithelial Cell None Seen /hpf (<5); Urine Urobilinogen Normal (Negative); Urine WBC 5 /HPF (0-3); Urine pH 5.5 (5.0-9.0)
[2024-06-29] MEDS: cefTRIAXone 1GM/50ML D5W 50 ML IV ONE (12:13)
--- NOTE | 2024-06-29 12:23 | DVH ---
INDICATION: Acute urinary retention. TECHNIQUE: Multiple real-time sonographic images of the kidneys and bladder were obtained. COMPARISON: CT abdomen and pelvis 06/19/2024 FINDINGS: RIGHT kidney measures 10.3 cm in length. No hydronephrosis. LEFT kidney measures 9.8 cm in length. No hydronephrosis. Bladder is decompressed with Ng catheter. Small volume ascites is noted. Bilateral pleural effusions suggested. IMPRESSION: 1. Unremarkable sonographic appearance of the bilateral kidneys. Bladder is decompressed with Ng c atheter. 2. Small volume ascites. Suggestion of bilateral pleural effusions.
--- NOTE | 2024-06-29 13:07 | DVHPN2 ---
Subjective Patient is confused today. Nurse Noted urinary retension. PVR 300 cc cant answer questions coherently. Reviewed: Care Plan Changes from previous H/P or p: Changes General: No Chills, No Night Sweats; Fatigue Neurological: Weakness Eyes: No Pain, No Vision change Cardiovascular: No Chest Pain, No Palpitations Respiratory: No Cough, No Dry Gastrointestinal: No Nausea, No Vomiting; Abdominal Pain Genitourinary: Retention Skin: No Rash Objective Vitals Vital Signs Date Time Temp Pulse Resp B/P (MAP) Pulse Ox O2 Delivery O2 Flow Rate FiO2 06/29/24 09:16 98.0 81 17 138/79 (98) 100 98.0 06/28/24 20:00 Room Air* 0 21 Intake/Output Intake and Output 06/29/24 07:00 Intake Total 1146 ml Output Total 650 ml Balance 496 ml Intake Oral 946 ml IV Total 200 ml Output Urine Total 650 ml # Bowel Movements 4 General Appearance: Alert; No Oriented X3 HEENT: Atraumatic Lungs: Clear to auscultation Cardiovascular: Regular rate, Normal S1, Normal S2 Abdomen: Other (mild tenderness in abdomne. ) Rectal: Deferred Psych/Mental Status: No Mental status NL Medications Current Medications Medications Dose Ordered Sig/Polina Route Start Time Stop Time Status Last Admin Dose Admin Sodium Chloride 10 ml Q8HR IV 06/27/24 14:00 06/29/24 06:11 10 ML Docusate Sodium 100 mg BIDPRN PRN PO 06/27/24 14:00 Acetaminophen 650 mg Q6HP PRN PO 06/27/24 14:00 Acetaminophen/ Hydrocodone Bitart 1 tab Q4HP PRN PO 06/27/24 14:00 06/29/24 09:33 1 TAB Ondansetron HCl 4 mg Q4HP PRN IV 06/27/24 14:00 Sucralfate 1 gm BID PO 06/27/24 22:00 06/29/24 09:32 1 GM Saccharomyces Boulardii 250 mg DAILY PO 06/28/24 10:00 06/29/24 09:32 250 MG Atorvastatin Calcium 10 mg HS PO 06/27/24 22:00 06/28/24 21:50 10 MG Patient Own Medication 1 tab DAILY PO 06/28/24 10:00 Pantoprazole Sodium 40 mg BID IV 06/27/24 14:15 06/29/24 09:32 40 MG Diagnostic Test (Pha) 1 strip ACHS 06/27/24 17:00 06/29/24 12:14 1 STRIP Insulin Human Regular ACHS SC 06/27/24 17:00 06/29/24 12:41 2 UNITS Dextrose 50 ml UD PRN IV 06/27/24 14:30 Vancomycin HCl 500 mg QID PO 06/27/24 18:00 06/29/24 12:13 500 MG Metronidazole 100 ml @ 100 mls/hr Q8HR IV 06/27/24 22:00 06/29/24 06:41 100 MLS/HR Tamsulosin HCl 0.4 mg QPM PO 06/28/24 18:00 06/28/24 18:36 0.4 MG Ceftriaxone Sodium 50 ml @ 100 mls/hr DAILY@09 IV 06/30/24 09:00 Laboratory Results Laboratory Tests 06/29/24 06:14 Chemistry Test 06/29/24 06:14 06/29/24 12:07 Albumin 2.1 g/dL (3.2-4.8) L Calcium Level 7.5 mg/dL (8.7-10.4) L Pending Total Protein 3.9 g/dL (5.7-8.2) L LFT Test 06/29/24 06:14 Alanine Aminotransferase (ALT) 13 U/L (7-40) Alkaline Phosphatase 119 U/L (46-116) H Aspartate Amino Transferase (AST) 43 U/L (13-40) H Total Bilirubin 0.2 mg/dL (0.2-1.0) Urinalysis Test 06/29/24 11:30 Urine Color Yellow (Yellow) Urine Clarity Clear (Clear) Urine pH 5.5 (5.0-9.0) Urine Specific [place] 1.012 (1.001-1.035) Urine Protein Negative (Negative) Urine Ketones Trace (Negative) Urine Blood Negative /uL (Negative) Urine Nitrite Negative (Negative) Urine Bilirubin Negative (Negative) Urine Urobilinogen Normal mg/dL (Negative) Urine Leukocyte Esterase Trace /uL (Negative) Urine RBC 2 /hpf (0 - 3) Urine Microscopic WBC 5 /HPF (0-3) H Urine Squamous Epithelial Cells None seen /hpf (<5) Urine Bacteria Few /hpf (None Seen) H Urine Mucus Few (None Seen) Urine Glucose Normal mg/dL (Normal) Microbiology Microbiology Date/Time Source Procedure Growth Status 06/28/24 13:35 Stool Stool Culture - Preliminary Resulted 06/28/24 13:35 Stool Shiga Toxin I & II - Final Resulted 06/28/24 02:05 Nose MRSA Screen - Final Complete 06/27/24 17:02 Blood Blood Culture - Preliminary NO GROWTH AFTER 24 HOURS OF INCUBATION. Resulted Assessment/Plan Assessment/Plan AMS- most likely 2/2 infection - ammonia - blood and urine culture - UA - restart Ceft Acute Urinary Retention - PVR noted 300 - marrero cath - tamuslosin - culture and abx. - renal US to eval for hydro Acute blood loss due to GI bleeds - Status post2 units PRBC in ED. -CBC daily - GI consult - Appreaciate Recs. - PPI 40 mg b.i.d. stool culture Transfusion hemoglobin goal greater than seven adenocarcinoma on chemotherapy Melena Acute C diff colitis Resume home meds Full code SCD for dvt ppx NPO except meds PPI for GI Plan discussed with: Patient, Spouse, Son My Orders Orders - HELEN WINSTON MD Procedure Category Date Status Time Tamsulosin PHA 06/28/24 In Process Hydrochloride (Flomax) 18:00 Insert Marrero Catheter RADHA 06/29/24 In Process 11:00 Urine Bacterial MARANDA 06/29/24 Logged Culture 11:00 Blood Culture MARANDA 06/29/24 In Process 11:00 Calcium LAB 06/29/24 In Process 11:00 Ceftriaxone 1gm/50ml PHA 06/30/24 In Process D5w (Rocephin) 09:00 Kidney US 06/29/24 Resulted 11:05 Date of Service: Jun 29, 2024 Billing Provider: HELEN WINSTON MD Common Visit Codes: [id number] INP/OBS CARE(HIGH) HELEN WINSTON MD Jun 29, 2024 13:07
--- NOTE | 2024-06-29 15:02 | DVHPN2 ---
Progress Note - Dictate Date Seen: Jun 29, 2024 Medical Necessity Reason Pt with a Central, PICC or Fol: No Subjective Had some mild bleeding today but the hemoglobin is stable no nausea no vomiting Abdominal pain is much better vital signs Vital Sign Date Time Temp Pulse Resp B/P (MAP) Pulse Ox O2 Delivery O2 Flow Rate FiO2 06/29/24 13:00 97.8 82 17 135/77 (96) 100 97.8 06/28/24 20:00 Room Air* 0 21 Total Intake and Output 06/28/24 06/28/24 06/29/24 15:00 23:00 07:00 Intake Total 896 ml 250 ml Output Total 400 ml 250 ml Balance 496 ml 0 ml medications Current Medications Medications Dose Ordered Sig/Polina Route Start Time Stop Time Status Last Admin Dose Admin Sodium Chloride 10 ml Q8HR IV 06/27/24 14:00 06/29/24 14:37 10 ML Docusate Sodium 100 mg BIDPRN PRN PO 06/27/24 14:00 Acetaminophen 650 mg Q6HP PRN PO 06/27/24 14:00 Acetaminophen/ Hydrocodone Bitart 1 tab Q4HP PRN PO 06/27/24 14:00 06/29/24 14:37 1 TAB Ondansetron HCl 4 mg Q4HP PRN IV 06/27/24 14:00 Sucralfate 1 gm BID PO 06/27/24 22:00 06/29/24 09:32 1 GM Saccharomyces Boulardii 250 mg DAILY PO 06/28/24 10:00 06/29/24 09:32 250 MG Atorvastatin Calcium 10 mg HS PO 06/27/24 22:00 06/28/24 21:50 10 MG Patient Own Medication 1 tab DAILY PO 06/28/24 10:00 Pantoprazole Sodium 40 mg BID IV 06/27/24 14:15 06/29/24 09:32 40 MG Diagnostic Test (Pha) 1 strip ACHS 06/27/24 17:00 06/29/24 12:14 1 STRIP Insulin Human Regular ACHS SC 06/27/24 17:00 06/29/24 12:41 2 UNITS Dextrose 50 ml UD PRN IV 06/27/24 14:30 Vancomycin HCl 500 mg QID PO 06/27/24 18:00 06/29/24 12:13 500 MG Metronidazole 100 ml @ 100 mls/hr Q8HR IV 06/27/24 22:00 06/29/24 14:38 100 MLS/HR Tamsulosin HCl 0.4 mg QPM PO 06/28/24 18:00 06/28/24 18:36 0.4 MG Ceftriaxone Sodium 50 ml @ 100 mls/hr DAILY@09 IV 06/30/24 09:00 objective Abdomen is soft mild tenderness still in the epigastrium and left upper quad but better Hemoglobin is stable around 9-10 laboratory and microbiology Laboratory Tests 06/29/24 06:14 Test 06/29/24 06:14 Range/Units Serum Glucose 80 74-106 mg/dL Assessment/Plan 63-year-old with a history of gastric cancer with GI bleeding and diarrhea history patient is on chemotherapy for gastric cancer on oxygen and has got anemia and some dark red blood and diarrhea Clinical impression possible GI bleeding from the gastric tumor No gross bleeding at this time Hemoglobin is stable Plans To monitor closely If bleeding is severe may need radiological intervention Thank you Dr. Reyes Overall prognosis guarded Plan discussed with: Patient CC Plasma Assessment Blood Product Administration S: [id number] SUNDAY REYES MD Jun 29, 2024 15:02
--- NOTE | 2024-06-29 16:12 | DVH ---
CLINICAL INFORMATION: 64 years old, Male; Effusion. TECHNIQUE: Single AP portable chest radiograph was obtained. COMPARISON: XY CHEST XRAY 1 VIEW on DOS: 06/27/24, XY CHEST XRAY 1 VIEW on DOS: 05/15/24 FINDINGS: Stable satisfactory positioning of the right internal jugular port catheter. Appears to be a catheter overlying the right axillary region, although does not extend beyond the level of the right axilla. Low lung volumes with atelectasis in the lung bases. No focal consolidation visualized. No pneumothor ax or pleural effusion. No other significant interval change. IMPRESSION: 1. There is a catheter overlying the right axillary region, partially visualized. Uncertain if this i s from attempted PICC placement as the radiograph is labeled with PICC line . If this is the PICC, t he distal tip is at the level of the right axilla. 2. No other significant interval change as described above.
[2024-06-30] VITALS (8 sets, daily range): BP systolic 140–158; BP diastolic 75–80; PULSE 77–103; RESP 16–20; TEMP 97.6–98.1; O2SAT 96–100
[2024-06-30 07:40] LABS: Alanine Aminotransferase 14 U/L (7-40); Anion Gap 6 (5-15); BUN/Creatinine Ratio 9.4 (10.0-20.0); Carbon Dioxide 28 mmol/L (20-31); Chloride 103 mmol/L (98-107); Glucose 75 mg/dL (74-106); Sodium 137 mmol/L (136-145)
[2024-06-30 07:44] LABS: Albumin 2.1 g/dL (3.2-4.8); Alkaline Phosphatase 130 U/L (46-116); Aspartate Aminotransferase 45 U/L (13-40); Blood Urea Nitrogen 6 mg/dL (9-23); Calcium 7.6 mg/dL (8.7-10.4); Potassium 3.2 mmol/L (3.5-5.1)
[2024-06-30 07:47] LABS: Bilirubin, Total 0.2 mg/dL (0.2-1.0)
[2024-06-30] MEDS: cefTRIAXone 1GM/50ML D5W 50 ML IV SCH (09:03)
[2024-06-30] MEDS: POTASSIUM EFFERVESENT TAB 25 MEQ GT ONE (16:31)
--- NOTE | 2024-06-30 16:56 | MEDREC ---
[facility] ASP Intervention Section I DV ASP Intervention: Deescalate AB based on CS (PLEASE CONSIDER D/C VANCOMYCIN PO SINCE C.DIFF IS NEGATIVE) JUMA BRUSH PHARMACIST Jun 30, 2024 16:56
--- NOTE | 2024-06-30 20:12 | DVHPN2 ---
Subjective No complaints, low grade bleed, will discuss clearance with GI, pt need to follow up with outpatient onc to continue chemo Reviewed: Care Plan Changes from previous H/P or p: No Changes General: No Chills, No Night Sweats; Fatigue Neurological: Weakness Eyes: No Pain, No Vision change Cardiovascular: No Chest Pain, No Palpitations Respiratory: No Cough, No Dry Gastrointestinal: No Nausea, No Vomiting; Abdominal Pain Genitourinary: Retention Skin: No Rash Objective Vitals Vital Signs Date Time Temp Pulse Resp B/P (MAP) Pulse Ox O2 Delivery O2 Flow Rate FiO2 06/30/24 16:36 98.0 79 16 145/80 (101) 100 98.0 06/30/24 08:00 Room Air* 0 21 Intake/Output Intake and Output 06/30/24 07:00 Intake Total 980 ml Output Total 700 ml Balance 280 ml Intake Oral 780 ml IV Total 200 ml Output Urine Total 700 ml # Voids 1 # Bowel Movements 2 General Appearance: Alert; No Oriented X3 HEENT: Atraumatic Lungs: Clear to auscultation Cardiovascular: Regular rate, Normal S1, Normal S2 Abdomen: Other (mild tenderness in abdomne. ) Rectal: Deferred Psych/Mental Status: No Mental status NL Medications Current Medications Medications Dose Ordered Sig/Polina Route Start Time Stop Time Status Last Admin Dose Admin Sodium Chloride 10 ml Q8HR IV 06/27/24 14:00 06/30/24 15:25 10 ML Docusate Sodium 100 mg BIDPRN PRN PO 06/27/24 14:00 Acetaminophen 650 mg Q6HP PRN PO 06/27/24 14:00 Acetaminophen/ Hydrocodone Bitart 1 tab Q4HP PRN PO 06/27/24 14:00 06/30/24 12:05 1 TAB Ondansetron HCl 4 mg Q4HP PRN IV 06/27/24 14:00 Sucralfate 1 gm BID PO 06/27/24 22:00 06/30/24 09:03 1 GM Saccharomyces Boulardii 250 mg DAILY PO 06/28/24 10:00 06/30/24 09:47 250 MG Atorvastatin Calcium 10 mg HS PO 06/27/24 22:00 06/29/24 21:36 10 MG Patient Own Medication 1 tab DAILY PO 06/28/24 10:00 Pantoprazole Sodium 40 mg BID IV 06/27/24 14:15 06/30/24 09:04 40 MG Diagnostic Test (Pha) 1 strip ACHS 06/27/24 17:00 06/30/24 16:31 1 STRIP Insulin Human Regular ACHS SC 06/27/24 17:00 06/29/24 12:41 2 UNITS Dextrose 50 ml UD PRN IV 06/27/24 14:30 Vancomycin HCl 500 mg QID PO 06/27/24 18:00 06/30/24 18:21 500 MG Metronidazole 100 ml @ 100 mls/hr Q8HR IV 06/27/24 22:00 06/30/24 15:24 100 MLS/HR Tamsulosin HCl 0.4 mg QPM PO 06/28/24 18:00 06/30/24 18:21 0.4 MG Ceftriaxone Sodium 50 ml @ 100 mls/hr DAILY@09 IV 06/30/24 09:00 06/30/24 09:03 100 MLS/HR Laboratory Results Laboratory Tests 06/29/24 06:14 06/30/24 05:49 Chemistry Test 06/30/24 05:49 Albumin 2.1 g/dL (3.2-4.8) L Calcium Level 7.6 mg/dL (8.7-10.4) L Total Protein 4.0 g/dL (5.7-8.2) L LFT Test 06/30/24 05:49 Alanine Aminotransferase (ALT) 14 U/L (7-40) Alkaline Phosphatase 130 U/L (46-116) H Aspartate Amino Transferase (AST) 45 U/L (13-40) H Total Bilirubin 0.2 mg/dL (0.2-1.0) Urinalysis Test 06/29/24 11:30 Urine Color Yellow (Yellow) Urine Clarity Clear (Clear) Urine pH 5.5 (5.0-9.0) Urine Specific [place] 1.012 (1.001-1.035) Urine Protein Negative (Negative) Urine Ketones Trace (Negative) Urine Blood Negative /uL (Negative) Urine Nitrite Negative (Negative) Urine Bilirubin Negative (Negative) Urine Urobilinogen Normal mg/dL (Negative) Urine Leukocyte Esterase Trace /uL (Negative) Urine RBC 2 /hpf (0 - 3) Urine Microscopic WBC 5 /HPF (0-3) H Urine Squamous Epithelial Cells None seen /hpf (<5) Urine Bacteria Few /hpf (None Seen) H Urine Mucus Few (None Seen) Urine Glucose Normal mg/dL (Normal) Microbiology Microbiology Date/Time Source Procedure Growth Status 06/29/24 12:07 Blood Blood Culture - Preliminary NO GROWTH AFTER 24 HOURS OF INCUBATION. Resulted 06/29/24 11:30 Voided Urine Urine Culture - Preliminary Resulted 06/28/24 13:35 Stool Stool Culture - Preliminary Resulted 06/28/24 13:35 Stool Shiga Toxin I & II - Final Resulted 06/28/24 02:05 Nose MRSA Screen - Final Complete Assessment/Plan Assessment/Plan AMS- most likely 2/2 infection, resolved - blood and urine culture - UA - restart Ceft Acute Urinary Retention - PVR noted 300 - marrero cath - tamuslosin - culture and abx. - renal US no hydro - TOV Acute blood loss due to GI bleeds - Status post2 units PRBC in ED. -CBC daily - GI consult - Appreaciate Recs. - PPI 40 mg b.i.d. 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
[2024-07-01] VITALS (9 sets, daily range): BP systolic 107–148; BP diastolic 66–83; PULSE 77–98; RESP 17–19; TEMP 97.9–98.5; O2SAT 96–98
[2024-07-01 06:03] LABS: Lymphocytes # (auto) 1.9 10 ^3/uL (0.4-5.4); White Blood Cell 13.7 10^3/uL (4.4-10.8)
[2024-07-01 06:06] LABS: Basophils # (auto) 0.1 10 ^3/uL (0-0.2); Basophils % (auto) 0.4 % (0.0-2.0); Eosinophils # (auto) 0 10 ^3/uL (0-0.8); Eosinophils % (auto) 0.3 % (0.0-7.0); Hematocrit 29.5 % (41.0-53.0); Hemoglobin 9.6 g/dL (13.5-17.5); Mean Corpuscular Hemoglobin 26.7 pg (28.0-32.0); Mean Corpuscular Hgb Conc. 32.5 g/dL (32.0-36.0); Mean Corpuscular Volume 81.9 fL (80.0-100.0); Monocytes # (auto) 0.8 10 ^3/uL (0-1.3); Monocytes % (auto) 5.6 % (0.0-12.0); Neutrophils # (auto) 10.9 10 ^3/uL (1.6-8.6); Neutrophils % (auto) 79.7 % (37.0-80.0); Nucleated Red Blood Cells % 0.2 %; Platelet Count (auto) 174 10^3/uL (140-450)
[2024-07-01 06:12] LABS: Alanine Aminotransferase 14 U/L (7-40); Alkaline Phosphatase 114 U/L (46-116); Anion Gap 5 (5-15); Aspartate Aminotransferase 38 U/L (13-40); BUN/Creatinine Ratio 12.1 (10.0-20.0); Carbon Dioxide 28 mmol/L (20-31); Chloride 103 mmol/L (98-107); Glucose 82 mg/dL (74-106); Sodium 136 mmol/L (136-145)
[2024-07-01 06:22] LABS: Red Cell Distribution Width 22.5 % (11.8-14.3)
[2024-07-01 06:27] LABS: Bilirubin, Total 0.2 mg/dL (0.2-1.0); Blood Urea Nitrogen 7 mg/dL (9-23); Calcium 7.6 mg/dL (8.7-10.4); Potassium 3.4 mmol/L (3.5-5.1)
--- NOTE | 2024-07-01 12:54 | DVHDS2 ---
Discharge Summary Date of Admission Jun 27, 2024 at 13:55 Date of Discharge: Jul 01, 2024 Labs/Diagnostic Data: Laboratory Results Test 07/01/24 11:25 07/01/24 05:26 06/29/24 12:07 06/29/24 11:30 POC Glucose 94 mg/dl (70-106) White Blood Count 13.7 10^3/uL (4.4-10.8) Red Blood Count 3.60 10^6/uL (4.5-5.90) Hemoglobin 9.6 g/dL (13.5-17.5) Hematocrit 29.5 % (41.0-53.0) Mean Corpuscular Volume 81.9 fL (80.0-100.0) Mean Corpuscular Hemoglobin 26.7 pg (28.0-32.0) Mean Corpuscular Hemoglobin Concent 32.5 g/dL (32.0-36.0) Red Cell Distribution Width 22.5 % (11.8-14.3) Platelet Count 174 10^3/uL (140-450) Mean Platelet Volume 7.0 fL (6.9-10.8) Neutrophils (%) (Auto) 79.7 % (37.0-80.0) Lymphocytes (%) (Auto) 14.0 % (10.0-50.0) Monocytes (%) (Auto) 5.6 % (0.0-12.0) Eosinophils (%) (Auto) 0.3 % (0.0-7.0) Basophils (%) (Auto) 0.4 % (0.0-2.0) Neutrophils # (Auto) 10.9 10 ^3/uL (1.6-8.6) Lymphocytes # (Auto) 1.9 10 ^3/uL (0.4-5.4) Monocytes # (Auto) 0.8 10 ^3/uL (0-1.3) Eosinophils # (Auto) 0 10 ^3/uL (0-0.8) Basophils # (Auto) 0.1 10 ^3/uL (0-0.2) Nucleated Red Blood Cells 0.2 % Sodium Level 136 mmol/L (136-145) Potassium Level 3.4 mmol/L (3.5-5.1) Chloride Level 103 mmol/L (98-107) Carbon Dioxide Level 28 mmol/L (20-31) Anion Gap 5 (5-15) Blood Urea Nitrogen 7 mg/dL (9-23) Creatinine 0.58 mg/dL (0.700-1.30) Glomerular Filtration Rate Calc 110 mL/min (>90) BUN/Creatinine Ratio 12.1 (10.0-20.0) Serum Glucose 82 mg/dL (74-106) Calcium Level 7.6 mg/dL (8.7-10.4) Total Bilirubin 0.2 mg/dL (0.2-1.0) Aspartate Amino Transferase (AST) 38 U/L (13-40) Alanine Aminotransferase (ALT) 14 U/L (7-40) Alkaline Phosphatase 114 U/L (46-116) Total Protein 4.0 g/dL (5.7-8.2) Albumin 2.0 g/dL (3.2-4.8) Lactic Acid Level 1.5 mmol/L (0.4-2.0) Ammonia 24 umol/L (11-32) Urine Color Yellow (Yellow) Urine Clarity Clear (Clear) Urine pH 5.5 (5.0-9.0) Urine Specific [place] 1.012 (1.001-1.035) Urine Protein Negative (Negative) Urine Ketones Trace (Negative) Urine Blood Negative /uL (Negative) Urine Nitrite Negative (Negative) Urine Bilirubin Negative (Negative) Urine Urobilinogen Normal mg/dL (Negative) Urine Leukocyte Esterase Trace /uL (Negative) Urine RBC 2 /hpf (0 - 3) Urine Microscopic WBC 5 /HPF (0-3) Urine Squamous Epithelial Cells None seen /hpf (<5) Urine Bacteria Few /hpf (None Seen) Urine Mucus Few (None Seen) Urine Glucose Normal mg/dL (Normal) Test 06/28/24 11:39 06/27/24 11:25 06/27/24 09:36 Stool Occult Blood Positive (Negative) Stool Occult Blood Sample #3 (Negative) Iron Level 16 ug/dL (65-175) Total Iron Binding Capacity 204 ug/dL (250-425) Percent Iron Saturation 7.8 % (20-55) Reticulocyte Count (auto) 4.26 % (0.5-1.5) Prothrombin Time 11.4 sec (9.3-11.8) Prothrombin Time INR 1.08 (0.9-1.15) Activated Partial Thromboplast Time 26.5 SEC (24.5-34.5) D-Dimer, Quantitative 0.46 mg/L FEU (0.0-0.49) Magnesium Level 1.7 mg/dL (1.6-2.6) Ferritin 23.1 ng/mL (22-322) Lactate Dehydrogenase 275 U/L (120-246) Troponin I High Sensitivity < 3 ng/L (</=54) Other Laboratory Tests 07/01/24 05:26 Brief Hx & Hospital Course: 64 M with gastric cancer admitted for GI bleed. Patient had recurrent admission for acute blood loss anemia, currently having chemotherapy for gastric cancer. Received PRBC transfussion, seen by [facility], H/H stable. Patient also had retention, placed marrero and on flomax. now improved, marrero dc'd. cdiff returns negative, oral vanc discontinued Condition at Discharge: Fair Final Diagnosis/Problems List blood loss anemia 2/2 gastrointestinal cancer with GI bleed Discharge Disposition: Home Discharge Instruct/Medications Diet: Consistent carbohydrate, Cardiac 2g Na,low cholest Activity: No Restrictions, As Tolerated Follow Up/Referral: PCP oncology Medications: c/w home 36 Discharge Statement: "Patient was advised to return to the ER or call 911 if any headaches, dizziness, shortness of breath, chest pain, abdominal pain, bleeding, fevers, or worsening of medical condition. Patient was counseled about treatment plan, medications, possible side effects, patientverbalized understanding. All questions were answered to the best of my ability. This discharge took greater then 30 minutes in planning, reviewing documentation, counseling the patient, and discussing with other team members." ASSESSMENT ASSESSMENT Assessment AMS- most likely 2/2 infection, resolved Acute Urinary Retention Acute blood loss due to GI bleeds - Status post2 units PRBC in ED. 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
[2024-07-01] MEDS: POTASSIUM EFFERVESENT TAB 25 MEQ GT ONE (18:05)
[2024-07-01] MEDS: ONDANSETRON HCL 4 MG/2 ML VIAL IV PRN (20:28)
[2024-07-01] MEDS: MORPHINE SULFATE INJ 2 MG/ml SYRG IM ONE (20:31)
== END 2024-07-01 22:00 | disposition home or self-care (01) | DRG 240 ==
LOC: ER 09:05 → EDBD 09:05 → EDUNIT# 09:05 → OVERFLOW 13:55 → EAST 21:55
PROVIDERS: ADMIT Internal Medicine; ATTEND Student in an Organized Health Care Education/Training Program
PROC: 30233N1 Transfusion of Nonautologous Red Blood Cells into Peripheral Vein, Percutaneous Approach (ICD-10-PCS; principal; 2024-06-27)
DX: C16.9 Malignant neoplasm of stomach, unspecified (principal); G93.41 Metabolic encephalopathy; A04.72 Enterocolitis due to Clostridium difficile, not specified as recurrent; D62 Acute posthemorrhagic anemia; D63.0 Anemia in neoplastic disease; E11.9 Type 2 diabetes mellitus without complications; E78.5 Hyperlipidemia, unspecified; I10 Essential (primary) hypertension; K92.1 Melena; R33.9 Retention of urine, unspecified; Z88.0 Allergy status to penicillin; Z79.899 Other long term (current) drug therapy; Z87.891 Personal history of nicotine dependence; Z80.0 Family history of malignant neoplasm of digestive organs; Z82.49 Family history of ischemic heart disease and other diseases of the circulatory system; Z85.028 Personal history of other malignant neoplasm of stomach
CPT/HCPCS: 36415; 71045; 76775; 80053; 81001; 82140; 82270; 82310; 82728; 82962; 83540; 83550; 83605; 83615; 83735; 84484; 85025; 85045; 85379; 85610; 85730; 86850; 86900; 86901; 86922; 87040; 87045; 87081; 87086; 87427; 87493; 93005; 96365; 97163; G0378; J1815; J2405; J2470; J2543; J3490

== ENCOUNTER 2024-07-04 10:01 | Inpatient (IN) | payer MEDICAID ==
[~2024-07-04] VITALS: Ht 157.5 cm; Wt 70.2 kg
[~2024-07-04 10:01] MED LIST changes: -DIPH25CA66 PO
--- NOTE | 2024-07-04 10:32 | ED.PDOC ---
History of Present Illness HPI Comments 64 year old male brought in by daughter presents to the ED with chief complaint of testicular swelling and N/V/D. Patient reports that he has been experiencing testicular swelling with associated nausea, vomiting, diarrhea, lightheadedness, and muscle spasms since being discharged from the hospital on Sunday. Daughter relays that the patient had recently been diagnosed with stomach cancer on 02/28/24, currently on chemo with his last round being 15 days ago. Patient denies any abdominal pain, SOB, chest pain, dizziness, fever, chills, hematemesis, or melena. Time Seen by MD: 10:29 Primary Care Provider: geovanny Reviewed Notes: Nurses Notes, Medications, Allergies Allergies: Coded Allergies: Amoxicillin (Verified Allergy, Severe, 06/03/24) Home Meds Active Scripts Sucralfate (Carafate) 1 Gm/10 Ml Alysha, 10 ML PO BID for 14 Days, #120 ML 1 [facility]24 Pantoprazole Sodium Sesquihydr (Protonix) 40 Mg Tab, 40 MG PO BID for 14 Days, #28 TAB [facility] 06/26/24 Metronidazole (Flagyl) 500 Mg Tab, 1 TAB PO TID for 10 Days, #30 TAB [facility] 06/26/24 Vancomycin Hcl (Vancomycin Po) 125 Mg So, 500 MG PO QID for 10 Days, #40 TAB [facility] 06/26/24 Yeast (S. Boulardii)(S. Cerevi (Probiotic) 250 Mg Cap, 250 MG PO DAILY for 14 Days, #14 CAP Prov[facility] 06/25/24 Famotidine (PEPCID TABLET) 20 Mg Tb, 1 TAB PO BID for 14 Days, #28 TAB 5 [facility]ills [facility] 06/25/24 Reported Medications Loperamide Hcl (Loperamide Hcl) 2 Mg Cap, 2 MG PO Q6HP, MG 06/20/24 Glipizide (Glipizide) 5 Mg Tab, 5 MG PO DAILY, TAB 06/20/24 Diphenoxylate W/ Atropine (Lomotil) 2.5 Mg Tab, 2.5 MG PO, TAB 06/20/24 Benazepril & Hydrochlorothiazi (Benazepril Hydrochloride/ 20-12.5 mg) 1 Tab Tab, 1 TAB PO BID, TAB 06/20/24 Prochlorperazine Maleate (Compazine) 10 Mg Tb, 1 TAB PO Q8HR, #60 TAB 3 Refills 06/20/24 Ondansetron HCl (Ondansetron) 4 Mg Tab, 8 MG SL Q8HPRN, TAB 06/20/24 Linagliptin Base (TRADJENTA) 5 Mg Tab, 1 TAB PO DAILY, #90 TAB 1 Refill 02/28/24 Atorvastatin Calcium (ATORVASTATIN CALCIUM) 10 Mg Tab, 10 MG PO HS 02/28/24 Discontinued Scripts Diphenhydramine Hcl (Benadryl Allergy) 25 Mg Cap, 1 CAP PO QPM for 7 Days, #7 CAP Prov:[facility] 06/25/24 Information Source: Patient, Relative (Daughter) Mode of Arrival: Ambulatory Severity: Moderate Timing: Days Duration: Since onset Prehospital treatment: None Past Medical History PAST MEDICAL HISTORY: Anemia, Cancer (Stomach), DM, High Lipids, HTN Surgical History (Other): Back surgery, eye surgery Family History Family History: Reviewed,noncontributory to illness Social History Smoker: Non-Smoker, Quit Greater Than 1 Year Alcohol: Denies ETOH Use Drugs: Denies Drug Use Lives In: Home Constitutional: denies: chills, diaphoresis, fatigue, fever, malaise, sweats, weakness, others EENTM: denies: blurred vision, double vision, ear bleeding, ear discharge, ear drainage, ear pain, ear ringing, eye pain, eye redness, hearing loss, mouth pain, mouth swelling, nasal discharge, nose bleeding, nose congestion, nose pain, photophobia, tearing, throat pain, throat swelling, voice changes, others Respiratory: denies: cough, hemoptysis, orthopnea, SOB at rest, shortness of breath, SOB with excertion, stridor, wheezing, others Cardiovascular: reports: lightheadedness; denies: chest pain, dizzy spells, diaphoresis, Dyspnea on exertion, edema, irregular heart beat, left arm pain, palpitations, PND, syncope, others Gastrointestinal: reports: diarrhea, nausea, vomiting; denies: abdomen distended, abdominal pain, blood streaked bowels, constipated, dysphagia, difficulty swallowing, hematemesis, melena, poor appetite, poor fluid intake, rectal bleeding, rectal pain, others Genitourinary: reports: testicle swelling; denies: burning, dysuria, flank pain, frequency, hematuria, incontinence, penile discharge, penile sore, pain, testicle pain, urgency, others Neurological: denies: dizziness, fainting, headache, left sided numbness, left sided weakness, numbness, paresthesia, pre-existing deficit, right sided numbness, right sided weakness, seizure, speech problems, tingling, tremors, weakness, others Musculoskeletal: reports: others (Muscle spasms); denies: back pain, gout, joint pain, joint swelling, muscle pain, muscle stiffness, neck pain Integumetry: denies: bruises, change in color, change in hair/nails, dryness, laceration, lesions, lumps, rash, wounds, others Allergic/Immunocompromised: denies: Difficulty Healing, Frequent Infections, Hives, Itching, others Hematologic/Lymphatic: denies: anemia, blood clots, easy bleeding, easy bruising, swollen glands, others Endocrine: denies: excessive hunger, excessive sweating, excessive thirst, excessive urination, flushing, intolerance to cold, intolerance to heat, unexplained weight gain, unexplained weight loss, others Psychiatric: denies: anxiety, bipolar disorder, depression, hopeless, panic disorder, schizophrenia, sleepless, suicidal, others All Other Systems: Reviewed and Negative Physical Exam General Appearance: Moderate Distress HEENT: Normal ENT Inspection, Pharynx Normal, TMs Normal Neck: Full Range of Motion, Non-Tender, Normal, Normal Inspection Respiratory: Chest Non-Tender, Lungs Clear, No Accessory Muscle Use, No Respiratory Distress, Normal Breath Sounds Cardiovascular: No Edema, No JVD, No Murmur, No Gallop, Normal Peripheral Pulses, Regular Rate/Rhythm Breast Exam: Deferred Gastrointestinal: No Organomegaly, Non Tender, No Pulsatile Mass, Normal Bowel Sounds, Soft Genitalia: Deferred Pelvic: Deferred Rectal: Deferred Extremities: No calf tenderness, Normal capillary refill, Pedal edema Musculoskeletal : Apperance: Normal Neurologic: Alert, cafeteria or lunchroom checker II-XII nml as Tested, Motor Weakness, Normal Affect, Normal Mood, No Sensory Deficits Cerebellar Function: Normal Reflexes: Normal Skin: Dry, Pallor, Warm Lymphatic: No Adenopathy Was a procedure done? Was a procedure done?: No Differential Dx Considerations may include: Sepsis, pneumonia, generalized weakness, electrolyte imbalance X-Ray, Labs, Meds, VS Vital Signs Date Time Temp Pulse Resp B/P (MAP) Pulse Ox O2 Delivery O2 Flow Rate FiO2 07/04/24 11:21 98.5 99 14 92/55 (67) 100 98.5 07/04/24 11:16 99 07/04/24 10:28 98.8 110 20 95/56 (69) 97 07/04/24 10:28 109 Lab Test 07/04/24 12:06 07/04/24 10:23 Range/Units White Blood Count 18.1 #H 4.4-10.8 10^3/uL Red Blood Count 3.78 L 4.5-5.90 10^6/uL Hemoglobin 10.0 L 13.5-17.5 g/dL Hematocrit 30.8 L 41.0-53.0 % Mean Corpuscular Volume 81.6 80.0-100.0 fL Mean Corpuscular Hemoglobin 26.4 L 28.0-32.0 pg Mean Corpuscular Hemoglobin Concent 32.4 32.0-36.0 g/dL Red Cell Distribution Width 22.9 H 11.8-14.3 % Platelet Count 215 140-450 10^3/uL Mean Platelet Volume 7.0 6.9-10.8 fL Neutrophils (%) (Auto) 82.5 H 37.0-80.0 % Lymphocytes (%) (Auto) 10.9 10.0-50.0 % Monocytes (%) (Auto) 5.6 0.0-12.0 % Eosinophils (%) (Auto) 0.7 0.0-7.0 % Basophils (%) (Auto) 0.3 0.0-2.0 % Neutrophils # (Auto) 14.9 H 1.6-8.6 10 ^3/uL Lymphocytes # (Auto) 2.0 0.4-5.4 10 ^3/uL Monocytes # (Auto) 1.0 0-1.3 10 ^3/uL Eosinophils # (Auto) 0.1 0-0.8 10 ^3/uL Basophils # (Auto) 0.1 0-0.2 10 ^3/uL Nucleated Red Blood Cells 0.1 % Prothrombin Time 11.5 9.3-11.8 sec Prothrombin Time INR 1.09 0.9-1.15 Activated Partial Thromboplast Time 26.4 24.5-34.5 SEC Sodium Level 137 136-145 mmol/L Potassium Level 3.8 3.5-5.1 mmol/L Chloride Level 105 98-107 mmol/L Carbon Dioxide Level 28 20-31 mmol/L Anion Gap 4 L 5-15 Blood Urea Nitrogen 11 9-23 mg/dL Creatinine 0.85 0.700-1.30 mg/dL Glomerular Filtration Rate Calc 98 >90 mL/min BUN/Creatinine Ratio 12.9 10.0-20.0 Serum Glucose 88 74-106 mg/dL Calcium Level 7.5 L 8.7-10.4 mg/dL Total Bilirubin 0.2 0.2-1.0 mg/dL Aspartate Amino Transferase (AST) 53 H 13-40 U/L Alanine Aminotransferase (ALT) 14 7-40 U/L Alkaline Phosphatase 141 H 46-116 U/L Total Protein 4.6 L 5.7-8.2 g/dL Albumin 2.5 L 3.2-4.8 g/dL POC Glucose 109 H 70-106 mg/dl Current Medications Medications (Trade) Dose Ordered Sig/Polina Route Start Time Stop Time Status Last Admin Ondansetron HCl (Zofran) 4 mg ONCE ONCE IV 07/04/24 10:30 07/04/24 10:34 DC 07/04/24 11:16 IV Hep-Lock was established The patient was given Zofran 4 mg IV push for the nausea The CBC shows an elevated white blood cell count of 18.1 The rest of the CBC and chemistry panel are within normal limits The patient was being admitted at this time. Patient remained somewhat hypotensive so we will continue to give the patient normal saline to support the patient's blood pressure The patient was being admitted to the hospitalist at this time Images Reviewed?: Images reviewed and evaluated by me Time of 1ST Reevaluation: 14:04 Reevaluation 1ST: Unchanged Patient Education/Counseling: Diagnosis, Treatment Family Education/Counseling: Diagnosis, Treatment Additional Information - I reviewed the following notes from patient's past medical encounters: 06/27/24 for acute blood loss due to GI bleed. - The following tests were ordered, and results were reviewed by me: (Labs, X- Ray, EKG): PTPTT, CBC, CMP, CXR, EKG - Additional information was gathered from interviewing the following independent Historian: (Family, Other Providers, EMT): Daughter - I reviewed and agreed with the following test results read by other provider: (X-ray, CT, US): Chest XR - I discussed treatments and results with medical personnel and family. Departure 1 Departure Time of Disposition: 14:04 Impression: Primary Impression: Hypotension Qualified Codes: I95.9 - Hypotension, unspecified Additional Impressions: Pedal edema Leukocytosis Qualified Codes: D72.829 - Elevated white blood cell count, unspecified Disposition: 09 ADMITTED INPATIENT Admit to: Tele Condition: Fair Critical Care Note Critical Care Time?: No Stability Stability form required: Yes Unstable for transfer: Telemetry monitoring (Telemetry monitoring required), ED Physician Assesment (Clinical assesment) Heart Score Heart Score: Heart Score Response (Comments) Value History N/A 0 EKG N/A 0 Age N/A 0 Risk Factors N/A 0 Troponin N/A 0 Total 0 I personally scribed for TAMMI PARDO MD ([email or web address]) on 07/04/24 at 10:31. Electronically submitted by Damian Curran ([email or web address]). I personally scribed for TAMMI PARDO MD ([email or web address]) on 07/04/24 at 11:02. Electronically submitted by Damian Curran ([email or web address]). TAMMI PARDO MD Jul 04, 2024 10:31
--- NOTE | 2024-07-04 11:06 | DVH ---
EXAM: XY CHEST TWO VIEWS ROUTINE CLINICAL HISTORY: sob COMPARISON: None TECHNIQUE: Frontal and lateral view of the chest was obtained FINDINGS: Lines and Tubes: Right chest port tip projects over the cavoatrial junction. Lungs: No focal consolidation. Low lung volumes. Pleura: No effusion. No pneumothorax. Cardiomediastinal contours: Unremarkable Bones: No acute osseous abnormality. IMPRESSION: No acute cardiopulmonary disease.
[2024-07-04 11:16] VITALS: PULSE 99
[2024-07-04] MEDS: ONDANSETRON HCL 4 MG/2 ML VIAL IV ONE (11:16)
[2024-07-04 12:42] LABS: Basophils # (auto) 0.1 10 ^3/uL (0-0.2); Basophils % (auto) 0.3 % (0.0-2.0); Eosinophils # (auto) 0.1 10 ^3/uL (0-0.8); Eosinophils % (auto) 0.7 % (0.0-7.0); Hematocrit 30.8 % (41.0-53.0); Lymphocytes % (auto) 10.9 % (10.0-50.0); Mean Corpuscular Hemoglobin 26.4 pg (28.0-32.0); Mean Corpuscular Hgb Conc. 32.4 g/dL (32.0-36.0); Mean Corpuscular Volume 81.6 fL (80.0-100.0); Monocytes % (auto) 5.6 % (0.0-12.0); Neutrophils # (auto) 14.9 10 ^3/uL (1.6-8.6); Neutrophils % (auto) 82.5 % (37.0-80.0); Nucleated Red Blood Cells % 0.1 %; Platelet Count (auto) 215 10^3/uL (140-450); Red Blood Cells 3.78 10^6/uL (4.5-5.90); Red Cell Distribution Width 22.9 % (11.8-14.3); White Blood Cell 18.1 10^3/uL (4.4-10.8)
[2024-07-04 12:58] LABS: INR 1.09 (0.9-1.15); Partial Thromboplastin Time 26.4 SEC (24.5-34.5); Prothrombin Time 11.5 sec (9.3-11.8)
[2024-07-04 13:06] LABS: Alanine Aminotransferase 14 U/L (7-40); Anion Gap 4 (5-15); BUN/Creatinine Ratio 12.9 (10.0-20.0); Blood Urea Nitrogen 11 mg/dL (9-23); Carbon Dioxide 28 mmol/L (20-31); Chloride 105 mmol/L (98-107); Glucose 88 mg/dL (74-106); Potassium 3.8 mmol/L (3.5-5.1); Sodium 137 mmol/L (136-145)
[2024-07-04 13:09] LABS: Albumin 2.5 g/dL (3.2-4.8); Alkaline Phosphatase 141 U/L (46-116); Aspartate Aminotransferase 53 U/L (13-40); Bilirubin, Total 0.2 mg/dL (0.2-1.0); Calcium 7.5 mg/dL (8.7-10.4); Total Protein 4.6 g/dL (5.7-8.2)
[2024-07-04] MEDS ORDERED: ACETAMINOPHEN 325 MG TAB PO PRN (18:30)
--- NOTE | 2024-07-04 19:12 | DVHHP2 ---
History of Present Illness Reason for Visit: Testicular edema History of Present Illness 64 year old male brought in by daughter presents to the ED with chief complaint of testicular swelling and N/V/D. Patient reported to the ER MD that he has been experiencing testicular and lower extremity swelling with associated nausea, vomiting, diarrhea, and muscle spasms since being discharged from the hospital on Sunday, who was admitted at that time for GI bleed. Patient reported to me he had edema when he was leaving the hospital but the edema had increased days following his discharge. Patient reports urine output has been normal with no dysuria. Patient has been eating regular foods at home without nausea or vomiting per patient. Daughter relays that the patient had recently been diagnosed with stomach cancer on 02/28/24, currently on chemo with his last round being 15 days ago. Patient sees Dr. cD for Oncology. Patient is unsure if cancer is increasing or decreasing as he has not had a follow up in while. Patient denies any abdominal pain, SOB, chest pain, dizziness, fever, chills, hematemesis, or melena. Past Medical History Gastric cancer, anemia, diabetes mellitus type 2, hypertension Past Surgical History Back surgery, eye surgery Family History Reviewed,noncontributory to illness Smoke: Quit (Quit Greater Than 1 Year) ALCOHOL: none Drugs: None Lives: with Family Review of Systems Constitutional: No: Fever, Chills, Sweats, Weakness, Malaise, Other Eyes: No: Pain, Vision change, Conjunctivae inflammation, Eyelid inflammation, Other, Redness ENT: No: Ear pain, Ear discharge, Nose pain, Nose discharge, Nose congestion, Mouth pain, Mouth swelling, Throat pain, Throat swelling, Other Respiratory: No: Cough, Dry, Shortness of breath, SOB with excertion, Wheezing, Hemoptysis, Pleuritic Pain, Sputum, Wheezing, Other Cardiovascular: Edema, Other (Bilateral lower extremity edema, nonpitting); No: Chest Pain, Palpitations, Orthopnea, Paroxysmal Noc. Dyspnea, Lt Headedness Gastrointestinal: No: Nausea, Vomiting, Abdominal Pain, Diarrhea, Constipation, Melena, Hematochezia, Other Genitourinary: No Dysuria, No Frequency, No Incontinence, No Hematuria, No Retention; Other (Testicular edema) Musculoskeletal: No: other, neck pain, shoulder pain, arm pain, back pain, hand pain, leg pain, foot pain Skin: No: Rash, Lesions, Jaundice, Bruising, Other Neurological: No: Weakness, Numbness, Incoordination, Change in speech, Confus ion, Seizures, Other Allergies: Coded Allergies: Amoxicillin (Verified Allergy, Severe, 06/03/24) Medications Current Medications Medications Dose Ordered Sig/Polina Route Start Time Stop Time Status Last Admin Dose Admin Pantoprazole Sodium 40 mg BID PO 07/04/24 22:00 Sucralfate 1 gm BID PO 07/04/24 22:00 Atorvastatin Calcium 10 mg HS PO 07/04/24 22:00 Benazepril HCl 20 mg BID PO 07/04/24 22:00 Hydrochlorothiazide 12.5 mg BID PO 07/04/24 22:00 UNV Furosemide 20 mg DAILY IV 07/04/24 18:00 Acetaminophen 650 mg Q6HP PRN PO 07/04/24 18:30 UNV Acetaminophen/ Hydrocodone Bitart 1 tab Q4HP PRN PO 07/04/24 18:30 UNV Ondansetron HCl 4 mg Q4HP PRN IV 07/04/24 18:30 UNV Exam Vital Signs Vital Signs Date Time Temp Pulse Resp B/P (MAP) Pulse Ox O2 Delivery O2 Flow Rate FiO2 07/04/24 11:21 98.5 99 14 92/55 (67) 100 98.5 General Appearance: Alert, Oriented X3, Cooperative, No acute distress HEENT: Atraumatic, PERRLA, EOMI Respiratory: Clear to auscultation, Normal air movement Cardiovascular: Regular rate, Normal S1, Normal S2, No murmurs Abdominal: Normal bowel sounds, Soft, No tenderness, No hepatospenomegaly, No masses Extremities: No clubbing, No cyanosis, No edema, Normal pulses, No tenderness/swelling Skin: No rashes, No breakdown, No significant lesion Neuro: Normal gait, Normal speech, Strength at 5/5 X4 ext, Normal tone, Sensation intact, Cranial nerves 3-12 NL, Reflexes 2+ Psych/Mental Status: Mental status NL, Mood NL Labs/Xrays reviewed Labs Test 07/04/24 12:06 07/04/24 10:23 Range/Units White Blood Count 18.1 #H 4.4-10.8 10^3/uL Red Blood Count 3.78 L 4.5-5.90 10^6/uL Hemoglobin 10.0 L 13.5-17.5 g/dL Hematocrit 30.8 L 41.0-53.0 % Mean Corpuscular Volume 81.6 80.0-100.0 fL Mean Corpuscular Hemoglobin 26.4 L 28.0-32.0 pg Mean Corpuscular Hemoglobin Concent 32.4 32.0-36.0 g/dL Red Cell Distribution Width 22.9 H 11.8-14.3 % Platelet Count 215 140-450 10^3/uL Mean Platelet Volume 7.0 6.9-10.8 fL Neutrophils (%) (Auto) 82.5 H 37.0-80.0 % Lymphocytes (%) (Auto) 10.9 10.0-50.0 % Monocytes (%) (Auto) 5.6 0.0-12.0 % Eosinophils (%) (Auto) 0.7 0.0-7.0 % Basophils (%) (Auto) 0.3 0.0-2.0 % Neutrophils # (Auto) 14.9 H 1.6-8.6 10 ^3/uL Lymphocytes # (Auto) 2.0 0.4-5.4 10 ^3/uL Monocytes # (Auto) 1.0 0-1.3 10 ^3/uL Eosinophils # (Auto) 0.1 0-0.8 10 ^3/uL Basophils # (Auto) 0.1 0-0.2 10 ^3/uL Nucleated Red Blood Cells 0.1 % Prothrombin Time 11.5 9.3-11.8 sec Prothrombin Time INR 1.09 0.9-1.15 Activated Partial Thromboplast Time 26.4 24.5-34.5 SEC Sodium Level 137 136-145 mmol/L Potassium Level 3.8 3.5-5.1 mmol/L Chloride Level 105 98-107 mmol/L Carbon Dioxide Level 28 20-31 mmol/L Anion Gap 4 L 5-15 Blood Urea Nitrogen 11 9-23 mg/dL Creatinine 0.85 0.700-1.30 mg/dL Glomerular Filtration Rate Calc 98 >90 mL/min BUN/Creatinine Ratio 12.9 10.0-20.0 Serum Glucose 88 74-106 mg/dL Calcium Level 7.5 L 8.7-10.4 mg/dL Total Bilirubin 0.2 0.2-1.0 mg/dL Aspartate Amino Transferase (AST) 53 H 13-40 U/L Alanine Aminotransferase (ALT) 14 7-40 U/L Alkaline Phosphatase 141 H 46-116 U/L Total Protein 4.6 L 5.7-8.2 g/dL Albumin 2.5 L 3.2-4.8 g/dL POC Glucose 109 H 70-106 mg/dl Assessment/Plan Assessment/Plan Testicular and lower extremity edema Admit to medical/surgical Lasix IV daily-monitor blood pressure prior to admit Gastric cancer Consult oncology Dr. Vanda Franklin p.r.n. Pain medication p.r.n. Patient is noted to have an elevated WBC/alk-phos Started on empirical therapy-Zosyn Diabetes mellitus type Accu-Cheks a.c. HS Chronic benign hypertension Resume home medications GI/VTE PPX Protonix Recent GI bleed - holding blood thinners Plan discussed with: Patient My Orders Orders - LISETTE MILLIGAN [employer] Procedure Category Date Status Time *Consult Dr. Deandre Dc CONS 07/04/24 Transmitted 17:47 Pantoprazole Tablet PHA 07/04/24 In Process (Protonix Tablet) 22:00 Sucralfate Susp PHA 07/04/24 In Process (Carafate Susp) 22:00 Atorvastatin (Lipitor) PHA 07/04/24 In Process 22:00 Benazepril Hcl Tablet PHA 07/04/24 In Process (Lotensin Tablet) 22:00 Hydrochlorothiazide PHA 07/04/24 Logged Tablet (Hydrochlorot 22:00 Furosemide Injection PHA 07/04/24 In Process (Lasix Injection) 18:00 Admit ADMIT 07/04/24 Transmitted 18:20 Code Status CODE 07/04/24 Transmitted 18:20 Vital Signs RADHA 07/04/24 In Process 18:20 Review Orders With RADHA 07/04/24 In Process Adm. 18:20 Bedside Commode RADHA 07/04/24 In Process 18:20 Acetaminophen Tablet PHA 07/04/24 Logged (Tylenol Tablet) 18:30 Notify Md Of Changes RADHA 07/04/24 In Process From Base 18:20 Advance Directive RADHA 07/04/24 In Process 18:20 Basic Metabolic Panel LAB 07/05/24 Verified 04:00 Complete Blood Count LAB 07/05/24 Verified 04:00 Patient Condition ORDERS 2/7/25 Transmitted 18:20 Allergies RADHA 07/04/24 In Process 18:20 Hydrocodone-Acet PHA 07/04/24 Logged 5/325mg Tab (Stuart 18:30 Ondansetron Hcl PHA 07/04/24 Logged (Zofran) 18:30 Soft Diet DIET 07/04/24 Transmitted Dinner Oxygen By Nasal RT 07/04/24 Transmitted Cannula 18:20 Notify Md Of Changes RADHA 07/04/24 In Process From Base 18:20 Testicular Ultrasound US 07/04/24 Logged 18:20 Date of Service: Jul 04, 2024 Billing Provider: LISETTE MILLIGAN Common Visit Codes: [id number] INP/OBS CARE(HIGH) LISETTE MILLIGAN Jul 04, 2024 19:12
[2024-07-04] MEDS ORDERED: DEXTROSE (50%) 50ML SYRG IV PRN (19:15)
--- NOTE | 2024-07-04 19:55 | DVH ---
Procedure: US TESTICULAR ULTRASOUND Study Date and Requested Time: 07/04/2024 07:11 PM History: Testicular edema Comparison: None Technique: Multiple high-resolution grayscale images of scrotal contents obtained. Color and spectral Doppler used for evaluation of testicular blood flow. Findings: Right testicle is surgically absent. Left testicle measures 3.6 x 2.8 x 2.8 cm with homogeneous echotexture and normal contours. Foci of c alcification of the periphery of the left testicle and within the left scrotum Left epididymal head m easures 1.7 cm with homogeneous echotexture. Normal testicular color and spectral Doppler flow on the left. No evidence of left testicular torsion . Mild hydrocele. Bilateral scrotal wall edema. Impression: Right testicle is surgically absent. No evidence of left testicular torsion. Bilateral scrotal wall edema. Small left hydrocele. Nonspecific foci of calcification over the periphery of the left testicle with left scrotal calcifica tions.
[2024-07-04] MEDS: FUROSEMIDE 20 MG/2 ML VIAL IV SCH (20:07)
[2024-07-04] MEDS: CIPROFLOXACIN 400MG/200ML 200 ML IV SCH (20:08)
[2024-07-04] MEDS: hydroCHLOROthiazide 25 MG TAB PO SCH (20:08)
[2024-07-04] MEDS: ACCU-CHEK COMFORT CURVE STRIP VI SCH (23:04)
[2024-07-04] MEDS: InsuLIN REG 1unit/0.01ml Soln (100units/ml) SC SCH (23:04)
[2024-07-04] MEDS: BENAZEPRIL HCL 10 MG TAB PO SCH (23:23)
[2024-07-04] MEDS: PANTOPRAZOLE 40 MG TAB PO SCH (23:23)
[2024-07-04] MEDS: ATORVASTATIN 20 MG TAB PO SCH (23:23)
[2024-07-04] MEDS: SUCRALFATE 1 GM/10 ML ORAL SUSP PO SCH (23:23)
[2024-07-04] MEDS: CLINDAMYCIN 600MG IV 50 ML IV SCH (23:34)
[2024-07-05 04:32] LABS: Chloride 100 mmol/L (98-107)
[2024-07-05 04:33] LABS: Anion Gap 5 (5-15); Carbon Dioxide 28 mmol/L (20-31)
[2024-07-05 04:36] LABS: Basophils # (auto) 0.1 10 ^3/uL (0-0.2); Basophils % (auto) 0.3 % (0.0-2.0); Eosinophils # (auto) 0.2 10 ^3/uL (0-0.8); Hematocrit 30.1 % (41.0-53.0); Hemoglobin 10.1 g/dL (13.5-17.5); Lymphocytes # (auto) 2.7 10 ^3/uL (0.4-5.4); Lymphocytes % (auto) 15.7 % (10.0-50.0); Mean Corpuscular Hemoglobin 28.6 pg (28.0-32.0); Mean Corpuscular Hgb Conc. 33.7 g/dL (32.0-36.0); Mean Corpuscular Volume 84.7 fL (80.0-100.0); Monocytes # (auto) 1.1 10 ^3/uL (0-1.3); Monocytes % (auto) 6.8 % (0.0-12.0); Neutrophils # (auto) 12.9 10 ^3/uL (1.6-8.6); Neutrophils % (auto) 76.2 % (37.0-80.0); Nucleated Red Blood Cells % 0.1 %; Platelet Count (auto) 204 10^3/uL (140-450); Red Blood Cells 3.55 10^6/uL (4.5-5.90); Red Cell Distribution Width 22.7 % (11.8-14.3)
[2024-07-05 04:38] LABS: Blood Urea Nitrogen 13 mg/dL (9-23); Glucose 88 mg/dL (74-106)
[2024-07-05 04:39] LABS: Calcium 7.8 mg/dL (8.7-10.4); Potassium 3.5 mmol/L (3.5-5.1); Sodium 133 mmol/L (136-145)
[2024-07-05] MEDS: HYDROcodone-ACET 5/325MG TAB PO PRN (06:04)
[2024-07-05 08:20] VITALS: PULSE 75; RESP 2
[2024-07-05 10:08] VITALS: PULSE 85; RESP 19; O2SAT 93
[2024-07-05] MEDS: MORPHINE SULFATE INJ 2 MG/ml SYRG ONE (10:27)
[2024-07-05] MEDS: ONDANSETRON HCL 4 MG/2 ML VIAL IV PRN (10:27)
[2024-07-05] MEDS ORDERED: MORPHINE SULFATE INJ 2 MG/ml SYRG IV PRN (10:30)
[2024-07-05] MEDS: POTASSIUM EFFERVESENT TAB 25 MEQ PO ONE (10:41)
[2024-07-05] MEDS: MORPHINE SULFATE INJ 2 MG/ml SYRG IV ONE (15:02)
[2024-07-05] MEDS: ONDANSETRON HCL 4 MG/2 ML VIAL IV ONE (15:03)
--- NOTE | 2024-07-05 19:03 | DVHPN2 ---
Assessment/Plan Assessment/Plan Progress Note 64 yo M with moderately differentiated gastric adenocarcinoma with ulcer admitted after recently discharged for GI bleed and cdiff. Current admission is for edema which was not present on last admission. symptoms started since last 7 days on 5FU, leucvovorin, oxaliplatin and taxotere Physical exam alert oriented x4 s1 s2 rrr no murmur trace crackles abdomen soft, abdominal wall thick scrotal swelling b/l le edema labs ekg imaging reviewed assessment and plan edema rule out heart failure rule out neprhotic range proteinuria gastric adenocarcinoma pain management lasix echo bnp ct angio abdomen to rule out intraabdominal mass encasing or pressing against vasculature urine protein diet reg dvt ppx lovenox Plan discussed with: Patient My Orders Orders - MARISOL COOL MD Procedure Category Date Status Time Morphine Extended PHA 07/05/24 In Process Release Tab (Oramorph 22:00 Morphine Sulfate PHA 07/05/24 In Process Injection 15:15 Urine LAB 07/05/24 Logged Protein/Creatinine Date of Service: Jul 05, 2024 Billing Provider: MARISOL COOL MD Common Visit Codes: [id number] INP/OBS CARE(HIGH) MARISOL COOL MD Jul 05, 2024 19:03
[2024-07-05 19:30] VITALS: PULSE 104; RESP 13; O2SAT 98
[2024-07-05] MEDS: IOHEXOL 350 MG/ML 100ML IJ ONE (20:38)
--- NOTE | 2024-07-05 21:30 | DVH ---
Exam: CT CT ANGIO ABD AORTA W RUN OFF History: rule out mass encasing IVC or other vasculature Comparison Study: None available at time of dictation. TECHNIQUE: Multidetector CT of the abdomen was performed from lung bases to pubic symphysis. Imaging was performed without IV contrast. Axial, coronal and sagittal multiplanar reformats were obtained fr om the axial data set by the technologist. Radiation Dose Information: CT Dose: CTDI volume is 9.21 mGy. Dose-length product is 1261.38 mGy*cm Omnipaque 350: 150 mL FINDINGS: Evaluation of solid organs is limited due to lack of intravenous contrast use. Findings: Lung Bases: No acute or significant lung base finding. Normal heart size. No pleural or pericardial effusion. Liver: The liver is normal in size. No focal lesions. Gallbladder and Biliary Tree: Unremarkable Spleen: Unremarkable Pancreas: The pancreas is grossly normal in appearance. Adrenal Glands: Unremarkable Kidneys: Kidneys are grossly normal without calculi or hydronephrosis. Bladder: Grossly unremarkable for degree of distention. Bowel: Ulcerated mass in the gastric fundus is unchanged from coarse. Small bowel and colon are norm al in caliber and distribution. The appendix is not visualized; however, no secondary findings of ac anastacio appendicitis identified. Ascites: Absent Lymphadenopathy: No mesenteric, retroperitoneal or periportal lymphadenopathy. Abdominal Wall and Mesentery: Unremarkable. Vasculature: No encasement of the abdominal aorta or inferior vena cava. Partial encasement of vessels in the splenic hilum but there does not appear to be vascular obstructi on. Branches of the abdominal aorta appear opacified and patent. Iliac vessels are patent bilaterally. Femoral bifurcation appears normal bilaterally. Superficial femoral artery is patent to the popliteal artery. Tibioperoneal trunk is patent bilateral ly. There are 2 vessels patent to the ankle. Right lower extremity demonstrates only the posterior tibial artery patent at the foot. On the left the anterior tibial and posterior tibial arteries are patent over the foot. Diffuse edema is noted some cutaneous tissues throughout the abdomen pelvis in both lower extremities . Pelvic Organs: Unremarkable Musculoskeletal: No aggressive focal bony lesions, acute fractures or dislocation. Soft tissues: Unremarkable IMPRESSION: 1. No significant change in the gastric mass. 2. Partial encasement but no occlusion of the vessels in the splenic 3. Portal artery appears patent. 4. There are 2 metastatic lesions in the mesentery in the area of the lesser curvature of the stomach . 5. There is no tumoral encasement of the aorta, inferior vena cava or aortic branches. 6. Lower extremities runoff demonstrate patent arteries bilaterally to the knee. 7. On the right there is a 1 vessel runoff to the foot. The posterior tibial artery is patent the an terior tibial artery is not patent. 8. Left lower extremity shows patent anterior and posterior tibial arteries of the foot. Radiation optimization: All CT scans at this facility use at least one of these dose optimization te chniques: automated exposure control mA and/or kV adjustment per patient size (includes targeted exa ms where dose is matched to clinical indication) or iterative reconstruction.
--- NOTE | 2024-07-05 21:43 | DVHINCON2 ---
Date of service: Jul 05, 2024 Referring Physician Dipti Martínez Reason for Consultation Gastric cancer History of Present Illness 64 yo M with moderately differentiated gastric adenocarcinoma with ulcer admitted after recently discharged for GI bleed and cdiff. Current admission is for edema which was not present on last admission. symptoms started since last 7 days on 5FU, leucvovorin, oxaliplatin and taxotere Past Medical History Past Medical History Gastric cancer, anemia, diabetes mellitus type 2, hypertension Past Surgical History Past Surgical History Back surgery, eye surgery Family History: FHx: colon cancer G8 MOTHER (UNKNOWN MEDICAL HISTORY), Hypertension G8 FATHER (HTN), Allergies: Coded Allergies: Amoxicillin (Verified Allergy, Severe, 06/03/24) Home Meds Active Scripts Sucralfate (Carafate) 1 Gm/10 Ml Alysha, 10 ML PO BID for 14 Days, #120 ML 1 Refill Prov:[facility] 06/26/24 Pantoprazole Sodium Sesquihydr (Protonix) 40 Mg Tab, 40 MG PO BID for 14 Days, #28 TAB Prov:[facility] 06/26/24 Metronidazole (Flagyl) 500 Mg Tab, 1 TAB PO TID for 10 Days, #30 TAB Prov:[facility] 06/26/24 Vancomycin Hcl (Vancomycin Po) 125 Mg So, 500 MG PO QID for 10 Days, #40 TAB Prov:[facility] 06/26/24 Yeast (S. Boulardii)(S. Cerevi (Probiotic) 250 Mg Cap, 250 MG PO DAILY for 14 Days, #14 CAP Prov:[facility] 06/25/24 Famotidine (PEPCID TABLET) 20 Mg Tb, 1 TAB PO BID for 14 Days, #28 TAB 5 Refills Prov:[facility] 06/25/24 Reported Medications Loperamide Hcl (Loperamide Hcl) 2 Mg Cap, 2 MG PO Q6HP, MG 06/20/24 Glipizide (Glipizide) 5 Mg Tab, 5 MG PO DAILY, TAB 06/20/24 Diphenoxylate W/ Atropine (Lomotil) 2.5 Mg Tab, 2.5 MG PO, TAB 06/20/24 Benazepril & Hydrochlorothiazi (Benazepril Hydrochloride/ 20-12.5 mg) 1 Tab Tab, 1 TAB PO BID, TAB 06/20/24 Prochlorperazine Maleate (Compazine) 10 Mg Tb, 1 TAB PO Q8HR, #60 TAB 3 Refills 06/20/24 Ondansetron HCl (Ondansetron) 4 Mg Tab, 8 MG SL Q8HPRN, TAB 06/20/24 Linagliptin Base (TRADJENTA) 5 Mg Tab, 1 TAB PO DAILY, #90 TAB 1 Refill 02/28/24 Atorvastatin Calcium (ATORVASTATIN CALCIUM) 10 Mg Tab, 10 MG PO HS 02/28/24 Discontinued Scripts Diphenhydramine Hcl (Benadryl Allergy) 25 Mg Cap, 1 CAP PO QPM for 7 Days, #7 CAP Prov:KIRAN FORDE RESIDENT 06/25/24 Current Medications Current Medications Medications (Trade) Dose Ordered Sig/Polina Route PRN Reason Start Time Stop Time Status Last Admin Pantoprazole Sodium (Protonix Tablet) 40 mg BID PO 07/04/24 22:00 07/05/24 10:27 Sucralfate (Carafate Susp) 1 gm BID PO 07/04/24 22:00 07/05/24 10:25 Atorvastatin Calcium (Lipitor) 10 mg HS PO 07/04/24 22:00 07/04/24 23:23 Benazepril HCl (Lotensin Tablet) 20 mg BID PO 07/04/24 22:00 07/05/24 10:41 Diagnostic Test (Pha) (Accu-Chek Comfort Curve T) 1 strip ACHS 07/04/24 22:00 07/05/24 17:11 Insulin Human Regular (InsuLIN R) ACHS SC 07/04/24 22:00 Clindamycin Phosphate 50 ml @ 50 mls/hr Q8HR IV 07/04/24 22:00 07/05/24 12:24 DC 07/05/24 06:04 Morphine Sulfate 2 mg Q4HPRN PRN IV SEVERE PAIN (7-10 PAIN SCALE) 07/05/24 10:30 07/05/24 12:24 DC Morphine Sulfate (Oramorph Sustained Release Tab) 15 mg Q12HR PO 07/05/24 22:00 Morphine Sulfate 2 mg Q6HPRN PRN IV SEVERE PAIN (7-10 PAIN SCALE) 07/05/24 15:15 Vital Signs Vital Signs Date Time Temp Pulse Resp B/P (MAP) Pulse Ox O2 Delivery O2 Flow Rate FiO2 07/05/24 19:30 104 13 98 Room Air* 0 21 07/05/24 19:30 97.8 107/68 (81) 97.8 Physical Exam alert oriented x3 CVS s1 s2 rrr no murmur Lungs trace crackles Abdomen soft, abdominal wall thick;NT ND scrotal swelling b/l le edema Labs/Diagnostic Data Labs Test 07/05/24 17:10 07/05/24 03:26 07/04/24 12:06 Range/Units POC Glucose 83 70-106 mg/dl White Blood Count 17.0 H 4.4-10.8 10^3/uL Red Blood Count 3.55 L 4.5-5.90 10^6/uL Hemoglobin 10.1 L 13.5-17.5 g/dL Hematocrit 30.1 L 41.0-53.0 % Mean Corpuscular Volume 84.7 80.0-100.0 fL Mean Corpuscular Hemoglobin 28.6 28.0-32.0 pg Mean Corpuscular Hemoglobin Concent 33.7 32.0-36.0 g/dL Red Cell Distribution Width 22.7 H 11.8-14.3 % Platelet Count 204 140-450 10^3/uL Mean Platelet Volume 7.2 6.9-10.8 fL Neutrophils (%) (Auto) 76.2 37.0-80.0 % Lymphocytes (%) (Auto) 15.7 10.0-50.0 % Monocytes (%) (Auto) 6.8 0.0-12.0 % Eosinophils (%) (Auto) 1.0 0.0-7.0 % Basophils (%) (Auto) 0.3 0.0-2.0 % Neutrophils # (Auto) 12.9 H 1.6-8.6 10 ^3/uL Lymphocytes # (Auto) 2.7 0.4-5.4 10 ^3/uL Monocytes # (Auto) 1.1 0-1.3 10 ^3/uL Eosinophils # (Auto) 0.2 0-0.8 10 ^3/uL Basophils # (Auto) 0.1 0-0.2 10 ^3/uL Nucleated Red Blood Cells 0.1 % Sodium Level 133 L 136-145 mmol/L Potassium Level 3.5 3.5-5.1 mmol/L Chloride Level 100 98-107 mmol/L Carbon Dioxide Level 28 20-31 mmol/L Anion Gap 5 5-15 Blood Urea Nitrogen 13 9-23 mg/dL Creatinine 0.59 L 0.700-1.30 mg/dL Glomerular Filtration Rate Calc 110 >90 mL/min BUN/Creatinine Ratio 22.0 H 10.0-20.0 Serum Glucose 88 74-106 mg/dL Calcium Level 7.8 L 8.7-10.4 mg/dL B-Type Natriuretic Peptide 27.29 0-100 pg/mL Prothrombin Time 11.5 9.3-11.8 sec Prothrombin Time INR 1.09 0.9-1.15 Activated Partial Thromboplast Time 26.4 24.5-34.5 SEC Total Bilirubin 0.2 0.2-1.0 mg/dL Aspartate Amino Transferase (AST) 53 H 13-40 U/L Alanine Aminotransferase (ALT) 14 7-40 U/L Alkaline Phosphatase 141 H 46-116 U/L Total Protein 4.6 L 5.7-8.2 g/dL Albumin 2.5 L 3.2-4.8 g/dL Aorta with run off CTA IMPRESSION: 1. No significant change in the gastric mass. 2. Partial encasement but no occlusion of the vessels in the splenic 3. Portal artery appears patent. 4. There are 2 metastatic lesions in the mesentery in the area of the lesser curvature of the stomach. 5. There is no tumoral encasement of the aorta, inferior vena cava or aortic branches. 6. Lower extremities runoff demonstrate patent arteries bilaterally to the knee. 7. On the right there is a 1 vessel runoff to the foot. The posterior tibial artery is patent the anterior tibial artery is not patent. 8. Left lower extremity shows patent anterior and posterior tibial arteries of the foot. Problems(with codes): (1) Pedal edema (2) Leukocytosis (3) Gastric adenocarcinoma (4) Anemia (5) Hypotension Plan/Recommendation Plan Protonix 40 mg IV daily Monitor labs Diet as tolerated Continue chemotherapy if the patient can tolerated Oncology consult pending Plan discussed with: Patient BYRON NEWSOME MD Jul 05, 2024 21:43
[2024-07-05] MEDS: MORPHINE SULF 15mg ER tab PO SCH (22:51)
[2024-07-05 23:49] VITALS: BP 143/81; PULSE 73; RESP 16; TEMP 97.9; O2SAT 96
[2024-07-05] MEDS: MORPHINE SULFATE INJ 2 MG/ml SYRG IV PRN (23:52)
[2024-07-06] VITALS (8 sets, daily range): BP systolic 103–156; BP diastolic 63–84; PULSE 67–112; RESP 14–18; TEMP 97.7–98.9; O2SAT 95–100
--- NOTE | 2024-07-06 00:57 | DVHSR ---
APPROVED REPORT EXAM: Two-dimensional and M-mode echocardiogram with Doppler and color Doppler. Blood Pressure: 140/77 mmHg INDICATION EF RISK FACTORS Height: 5'2", Weight: 150 DIMENSIONS LVDd4.2 (3.8-5.7cm)LA (2D)3.7 (1.9-4.0cm)Aortic Root3.5 (2.0-3.7cm) LVDs3.0 (2.5-4.0cm)LA (MM) (1.9-4.0cm)Aortic Cusp Exc1.9 (1.5-2.0cm) EF (%) 60.0 (55-70%)Rt. Atrium3.7 (1.9-4.0cm)Asc. Aorta cm IVSd0.9 (0.7-1.1cm)RV (D)3.7 (1.8-2.4cm) PWd1.1 (0.7-1.1cm) Mitral Valve MitralMitral Stenosis E wave0.90m/sMV Mean GR.mmHg A wave0.98m/sMV Peak GR.mmHg E/A ratio0.92D MVAcm2 DECEL [id number] 1/2 Timems Aortic Valve Aortic ValveAortic Stenosis V10.87m/Vikash Mean GR.3mmHg V21.32m/Vikash Peak GR.7mmHg LVOT Diameter2.1 (1.8-2.4cm)Doppler AVA2.28cm2 Pulmonic Valve V20.60m/s Tricuspid Valve TR Velocity2.64m/s [id number] Conclusion LV EJECTION FRACTION IS 65% NORMAL VALVES NO EFFUSION NORMAL RV FUNCTION
[2024-07-06 07:41] LABS: Urine Bacteria None Seen /hpf (None Seen)
[2024-07-06 07:47] LABS: Urine Blood Negative /uL (Negative); Urine Clarity Clear (Clear); Urine Color Light-Yellow (Yellow); Urine Protein, UAD Negative (Negative); Urine Specific Gravity 1.021 (1.001-1.035); Urine Squamous Epithelial Cell None Seen /hpf (<5); Urine Urobilinogen Normal (Negative); Urine WBC < 1 /HPF (0-3); Urine pH 6.5 (5.0-9.0)
[2024-07-06 07:59] LABS: Protein, Urine 11.7 mg/dL (1-14)
[2024-07-06 08:01] LABS: Creatinine, Urine 23.3 mg/dL (30.0-125.0); Urine Protein/Creatinine Ratio 0.5
[2024-07-06] MEDS: ONDANSETRON HCL 4 MG/2 ML VIAL IV ONE (09:49)
--- NOTE | 2024-07-06 12:42 | DVHPN2 ---
Assessment/Plan Assessment/Plan Progress Note 64 yo M with moderately differentiated gastric adenocarcinoma with ulcer admitted after recently discharged for GI bleed and cdiff. Current admission is for edema which was not present on last admission. symptoms started since last 7 days on 5FU, leucvovorin, oxaliplatin and taxotere seen today during rounds, significant improvement Physical exam alert oriented x4 s1 s2 rrr no murmur trace crackles abdomen soft, abdominal wall thick scrotal swelling b/l le edema, improving labs ekg imaging reviewed assessment and plan edema HTN rule out heart failure rule out neprhotic range proteinuria gastric adenocarcinoma pain management lasix echo wnl bnp wnl ct angio with splenic encasement but no IVC incasement urine protein not nephrotic range HF2PEF 42% will treat as HFpEF with lasix zofran PO diet cardiac dvt ppx lovenox Plan discussed with: Patient My Orders Orders - MARISOL COOL MD Procedure Category Date Status Time Morphine Extended PHA 07/05/24 In Process Release Tab (Oramorph 22:00 Morphine Sulfate PHA 07/05/24 In Process Injection 15:15 Ct Angio Abd Aorta W CT 07/05/24 Resulted Run Off 19:04 Date of Service: Jul 06, 2024 Billing Provider: MARISOL COOL MD Common Visit Codes: [id number] INP/OBS CARE(HIGH) MARISOL COOL MD Jul 06, 2024 12:42
--- NOTE | 2024-07-06 18:55 | DVHPN2 ---
Progress Note - Dictate Date Seen: Jul 06, 2024 Medical Necessity Reason Pt with a Central, PICC or Fol: No Subjective Patient is feeling better He has had adequate response to diuresis urine protein not nephrotic range No GI bleeding reported Patient tolerating diet ct angio with splenic encasement but no IVC incasement vital signs Vital Sign Date Time Temp Pulse Resp B/P (MAP) Pulse Ox O2 Delivery O2 Flow Rate FiO2 07/06/24 17:44 142/85 07/06/24 17:00 97.8 112 16 98 97.8 07/06/24 08:00 Room Air* 0 21 Total Intake and Output 07/05/24 07/05/24 07/06/24 15:00 23:00 07:00 Intake Total 200 ml 1000 ml Balance 200 ml 1000 ml medications Current Medications Medications Dose Ordered Sig/Polina Route Start Time Stop Time Status Last Admin Dose Admin Pantoprazole Sodium 40 mg BID PO 07/04/24 22:00 07/06/24 09:47 40 MG Sucralfate 1 gm BID PO 07/04/24 22:00 07/06/24 09:47 1 GM Atorvastatin Calcium 10 mg HS PO 07/04/24 22:00 07/05/24 22:50 10 MG Benazepril HCl 20 mg BID PO 07/04/24 22:00 07/06/24 09:47 20 MG Hydrochlorothiazide 12.5 mg BIDD PO 07/04/24 19:53 07/06/24 17:44 12.5 MG Furosemide 20 mg DAILY IV 07/04/24 18:00 07/06/24 09:49 20 MG Acetaminophen 650 mg Q6HP PRN PO 07/04/24 18:30 Diagnostic Test (Pha) 1 strip ACHS 07/04/24 22:00 07/06/24 17:00 1 STRIP Insulin Human Regular ACHS SC 07/04/24 22:00 Dextrose 50 ml UD PRN IV 07/04/24 19:15 Morphine Sulfate 15 mg Q12HR PO 07/05/24 22:00 07/06/24 09:48 15 MG Morphine Sulfate 2 mg Q6HPRN PRN IV 07/05/24 15:15 07/05/24 23:52 2 MG objective alert oriented x3 CVS s1 s2 rrr no murmur Lungs trace crackles Abdomen soft, abdominal wall thick;NT ND scrotal swelling b/l le edema laboratory and microbiology Laboratory Tests 07/05/24 03:26 Test 07/05/24 03:26 Range/Units Serum Glucose 88 74-106 mg/dL Problems(with codes): (1) Anemia (2) Gastric adenocarcinoma (3) Pedal edema (4) Leukocytosis Prognosis Plan Protonix 40 mg IV daily Carafate 1 gm po bid Monitor labs Diet as tolerated Continue chemotherapy if the patient can tolerated Oncology consult pending Plan discussed with: Patient BYRON NEWSOME MD Jul 06, 2024 18:55
[2024-07-07 05:00] VITALS: BP 148/75; PULSE 75; RESP 16; TEMP 97.6; O2SAT 95
[2024-07-07 07:18] LABS: Anion Gap 5 (5-15); Chloride 99 mmol/L (98-107); Sodium 137 mmol/L (136-145)
[2024-07-07 07:20] LABS: Basophils # (auto) 0 10 ^3/uL (0-0.2); Basophils % (auto) 0.3 % (0.0-2.0); Eosinophils # (auto) 0.3 10 ^3/uL (0-0.8); Eosinophils % (auto) 2.2 % (0.0-7.0); Hematocrit 29.1 % (41.0-53.0); Hemoglobin 9.5 g/dL (13.5-17.5); Lymphocytes # (auto) 2.3 10 ^3/uL (0.4-5.4); Mean Corpuscular Hemoglobin 27.1 pg (28.0-32.0); Mean Corpuscular Hgb Conc. 32.8 g/dL (32.0-36.0); Mean Corpuscular Volume 82.5 fL (80.0-100.0); Monocytes # (auto) 0.9 10 ^3/uL (0-1.3); Monocytes % (auto) 7.2 % (0.0-12.0); Neutrophils # (auto) 9.1 10 ^3/uL (1.6-8.6); Neutrophils % (auto) 72.3 % (37.0-80.0); Nucleated Red Blood Cells % 0.1 %; Platelet Count (auto) 202 10^3/uL (140-450); Red Blood Cells 3.52 10^6/uL (4.5-5.90); Red Cell Distribution Width 22.5 % (11.8-14.3); White Blood Cell 12.6 10^3/uL (4.4-10.8)
[2024-07-07 07:24] LABS: BUN/Creatinine Ratio 11.3 (10.0-20.0); Magnesium 1.8 mg/dL (1.6-2.6)
[2024-07-07 07:26] LABS: Blood Urea Nitrogen 7 mg/dL (9-23); Carbon Dioxide 33 mmol/L (20-31); Glucose 72 mg/dL (74-106); Potassium 3.2 mmol/L (3.5-5.1)
[2024-07-07 08:00] VITALS: PULSE 82; RESP 14; O2SAT 97
[2024-07-07 09:00] VITALS: BP 147/81; PULSE 80; RESP 17; TEMP 97.8; O2SAT 97
--- NOTE | 2024-07-07 11:46 | ECG ---
[facility] Test Date: 2024-07-04 Test Time: 10:28:44 Pat Name: LORETA ELENA Department: ER Room: 0208 A Gender: M [employer]: DOUGLAS : 1960 Requested By: TAMMI PARDO Order Number: [id number] Reading MD: Channing Grimm Measurements Intervals [place] Rate: 109 P: 27 OR: 149 QRS: 16 QRSD: 75 T: 6 QT: 326 QTc: 440 Interpretive Statements Sinus tachycardia Electronically Signed On 07-08-2024 19:20:00 PST by Channing Grimm Please click the below link to view image of tracing.
--- NOTE | 2024-07-07 12:05 | DVHDS2 ---
Discharge Summary Date of Admission Jul 04, 2024 at 18:20 Date of Discharge: Jul 07, 2024 Labs/Diagnostic Data: Laboratory Results Test 07/07/24 05:55 07/07/24 05:23 07/06/24 07:35 07/05/24 03:26 POC Glucose 85 mg/dl (70-106) White Blood Count 12.6 10^3/uL (4.4-10.8) Red Blood Count 3.52 10^6/uL (4.5-5.90) Hemoglobin 9.5 g/dL (13.5-17.5) Hematocrit 29.1 % (41.0-53.0) Mean Corpuscular Volume 82.5 fL (80.0-100.0) Mean Corpuscular Hemoglobin 27.1 pg (28.0-32.0) Mean Corpuscular Hemoglobin Concent 32.8 g/dL (32.0-36.0) Red Cell Distribution Width 22.5 % (11.8-14.3) Platelet Count 202 10^3/uL (140-450) Mean Platelet Volume 7.4 fL (6.9-10.8) Neutrophils (%) (Auto) 72.3 % (37.0-80.0) Lymphocytes (%) (Auto) 18.0 % (10.0-50.0) Monocytes (%) (Auto) 7.2 % (0.0-12.0) Eosinophils (%) (Auto) 2.2 % (0.0-7.0) Basophils (%) (Auto) 0.3 % (0.0-2.0) Neutrophils # (Auto) 9.1 10 ^3/uL (1.6-8.6) Lymphocytes # (Auto) 2.3 10 ^3/uL (0.4-5.4) Monocytes # (Auto) 0.9 10 ^3/uL (0-1.3) Eosinophils # (Auto) 0.3 10 ^3/uL (0-0.8) Basophils # (Auto) 0 10 ^3/uL (0-0.2) Nucleated Red Blood Cells 0.1 % Sodium Level 137 mmol/L (136-145) Potassium Level 3.2 mmol/L (3.5-5.1) Chloride Level 99 mmol/L (98-107) Carbon Dioxide Level 33 mmol/L (20-31) Anion Gap 5 (5-15) Blood Urea Nitrogen 7 mg/dL (9-23) Creatinine 0.62 mg/dL (0.700-1.30) Glomerular Filtration Rate Calc 108 mL/min (>90) BUN/Creatinine Ratio 11.3 (10.0-20.0) Serum Glucose 72 mg/dL (74-106) Calcium Level 8.0 mg/dL (8.7-10.4) Magnesium Level 1.8 mg/dL (1.6-2.6) Urine Color Light-yellow (Yellow) Urine Clarity Clear (Clear) Urine pH 6.5 (5.0-9.0) Urine Specific [place] 1.021 (1.001-1.035) Urine Protein Negative (Negative) Urine Ketones Negative (Negative) Urine Blood Negative /uL (Negative) Urine Nitrite Negative (Negative) Urine Bilirubin Negative (Negative) Urine Urobilinogen Normal mg/dL (Negative) Urine Leukocyte Esterase Negative /uL (Negative) Urine RBC None seen /hpf (0 - 3) Urine Microscopic WBC < 1 /HPF (0-3) Urine Squamous Epithelial Cells None seen /hpf (<5) Urine Bacteria None seen /hpf (None Seen) Urine Creatinine 23.30 mg/dL (30.0-125.0) Urine Protein/Creatinine Ratio 0.50 Urine Glucose Normal mg/dL (Normal) Urine Total Protein 11.7 mg/dL (1-14) B-Type Natriuretic Peptide 27.29 pg/mL (0-100) Test 07/04/24 12:06 Prothrombin Time 11.5 sec (9.3-11.8) Prothrombin Time INR 1.09 (0.9-1.15) Activated Partial Thromboplast Time 26.4 SEC (24.5-34.5) Total Bilirubin 0.2 mg/dL (0.2-1.0) Aspartate Amino Transferase (AST) 53 U/L (13-40) Alanine Aminotransferase (ALT) 14 U/L (7-40) Alkaline Phosphatase 141 U/L (46-116) Total Protein 4.6 g/dL (5.7-8.2) Albumin 2.5 g/dL (3.2-4.8) Other Laboratory Tests 07/07/24 05:23 Brief Hx & Hospital Course: 64 yo M with moderately differentiated gastric adenocarcinoma with ulcer admitted after recently discharged for GI bleed and cdiff. Current admission is for edema which was not present on last admission. symptoms started since last 7 days. on 5FU, leucvovorin, oxaliplatin and taxotere.. evaluated for heart failure, proteinuria or vascular compression. HF2PEF score 40s%, echo normal, kidney wnl, CTA abd with no evidence of IVC compression. Treated with lasix with improvement. stable to dc with oral lasix. patient recurrent admission with symptoms likely related to cancer and chemo such as diarrhea, neuropathy, pain. Condition at Discharge: Good Final Diagnosis/Problems List edema will treat as HFpEF Hypertensive heart disease gastric adenocarcinoma neuropathy Discharge Disposition: Home 39 Discharge Statement: "Patient was advised to return to the ER or call 911 if any headaches, dizziness, shortness of breath, chest pain, abdominal pain, bleeding, fevers, or worsening of medical condition. Patient was counseled about treatment plan, medications, possible side effects, patientverbalized understanding. All questions were answered to the best of my ability. This discharge took greater then 30 minutes in planning, reviewing documentation, counseling the patient, and discussing with other team members." ASSESSMENT ASSESSMENT Assessment Date of Service: Jul 07, 2024 Billing Provider: MARISOL COOL MD Common Visit Codes: [id number] DISCH DAY >30min MARISOL COOL MD Jul 07, 2024 12:05
[2024-07-07] MEDS ORDERED: MORP1TAB12 PO (12:07)
[2024-07-07] MEDS ORDERED: FURO1TAB31 PO (12:07)
[2024-07-07 13:00] VITALS: BP 111/77; PULSE 100; RESP 19; TEMP 97.9; O2SAT 95
== END 2024-07-07 15:06 | disposition home or self-care (01) | DRG 194 ==
LOC: ER 10:01 → OVERFLOW 18:20 → CENTRAL 07-05 23:13
PROVIDERS: ADMIT Registered Nurse General Practice; ATTEND Registered Nurse General Practice
DX: I11.0 Hypertensive heart disease with heart failure (principal); R65.11 Systemic inflammatory response syndrome (SIRS) of non-infectious origin with acute organ dysfunction; C16.9 Malignant neoplasm of stomach, unspecified; C78.6 Secondary malignant neoplasm of retroperitoneum and peritoneum; I95.9 Hypotension, unspecified; E11.40 Type 2 diabetes mellitus with diabetic neuropathy, unspecified; E88.09 Other disorders of plasma-protein metabolism, not elsewhere classified; D64.9 Anemia, unspecified; R60.0 Localized edema; I50.31 Acute diastolic (congestive) heart failure; D72.829 Elevated white blood cell count, unspecified; N44.8 Other noninflammatory disorders of the testis; Z88.0 Allergy status to penicillin; Z82.49 Family history of ischemic heart disease and other diseases of the circulatory system; Z80.0 Family history of malignant neoplasm of digestive organs; Z85.028 Personal history of other malignant neoplasm of stomach; Z79.899 Other long term (current) drug therapy
CPT/HCPCS: 36415; 71046; 75635; 76870; 80048; 80053; 81001; 82570; 82962; 83735; 83880; 84156; 85025; 85610; 85730; 87081; 93005; 93306; 96365; 96366; 96367; 96375; 96376; G0378; J2405; J3490

== ENCOUNTER 2024-07-12 18:44 | Inpatient (IN) | payer MEDICAID ==
[~2024-07-12] VITALS: Ht 157.5 cm; Wt 61.0 kg
[~2024-07-12 18:44] MED LIST changes: +FURO1TAB31 PO; -METR-344 PO; +MORP1TAB12 PO; -VANC125PO PO
--- NOTE | 2024-07-12 19:23 | ED.PDOC ---
History of Present Illness HPI Comments 64 year old male came to ER via EMS due to weakness. Patient was discharged here 5 days ago for Hypertensive Cardiovascular Disease, Gastric Adenocarcinoma, Neuropathy. Coming in again for the same. Has been complaining of left lower quadrant abdominal pain, bilateral leg numbness and progressively worsening g eneralized weakness Chief Complaint: General Weakness Time Seen by MD: 19:23 Primary Care Provider: geovanny Palomo Notes: Nurses Notes, Treating Inspector Notes Allergies: Coded Allergies: Amoxicillin (Verified Allergy, Severe, 06/03/24) Home Meds Active Scripts Morphine Sulfate (Morphine Sulfate Cr) 15 Mg Tab, 1 TAB PO BID for 5 Days, #10 TAB Prov:MARISOL COOL MD 07/07/24 Furosemide (Lasix) 40 Mg Tab, 40 MG PO DAILY for 30 Days, #30 TAB Prov:MARISOL COOL MD 07/07/24 Sucralfate (Carafate) 1 Gm/10 Ml Alysha, 10 ML PO BID for 14 Days, #120 ML 1 Refill Prov:KIRAN FORDE RESIDENT 06/26/24 Pantoprazole Sodium Sesquihydr (Protonix) 40 Mg Tab, 40 MG PO BID for 14 Days, #28 TAB Prov:[facility] GREERHIRA RESIDENT 06/26/24 Yeast (S. Boulardii)(S. Cerevi (Probiotic) 250 Mg Cap, 250 MG PO DAILY for 14 Days, #14 CAP Prov:ART FORDEHIRA RESIDENT 06/25/24 Famotidine (PEPCID TABLET) 20 Mg Tb, 1 TAB PO BID for 14 Days, #28 TAB 5 Refills Prov:ART FORDEHIRA RESIDENT 06/25/24 Reported Medications Loperamide Hcl (Loperamide Hcl) 2 Mg Cap, 2 MG PO Q6HP, MG 06/20/24 Glipizide (Glipizide) 5 Mg Tab, 5 MG PO DAILY, TAB 06/20/24 Diphenoxylate W/ Atropine (Lomotil) 2.5 Mg Tab, 2.5 MG PO, TAB 06/20/24 Benazepril & Hydrochlorothiazi (Benazepril Hydrochloride/ 20-12.5 mg) 1 Tab Tab, 1 TAB PO BID, TAB 06/20/24 Prochlorperazine Maleate (Compazine) 10 Mg Tb, 1 TAB PO Q8HR, #60 TAB 3 Refills 06/20/24 Ondansetron HCl (Ondansetron) 4 Mg Tab, 8 MG SL Q8HPRN, TAB 06/20/24 Linagliptin Base (TRADJENTA) 5 Mg Tab, 1 TAB PO DAILY, #90 TAB 1 Refill 02/28/24 Atorvastatin Calcium (ATORVASTATIN CALCIUM) 10 Mg Tab, 10 MG PO HS 02/28/24 Discontinued Scripts Metronidazole (Flagyl) 500 Mg Tab, 1 TAB PO TID for 10 Days, #30 TAB Prov:RENETTAKIRAN RESIDENT 06/26/24 Vancomycin Hcl (Vancomycin Po) 125 Mg So, 500 MG PO QID for 10 Days, #40 TAB Prov:FELIBERTOARTKIRAN RESIDENT 06/26/24 Information Source: Patient, Emergency Med Personnel Mode of Arrival: EMS Severity: Moderate Timing: Days Duration: Since onset Past Medical History PAST MEDICAL HISTORY: Anemia, Cancer, DM, High Lipids, HTN Past Medical History (Other): Gastric adenocarcinoma Family History Family History: Reviewed,noncontributory to illness Social History Smoker: Non-Smoker, Quit Greater Than 1 Year Alcohol: Denies ETOH Use Drugs: Denies Drug Use Lives In: Home Constitutional: reports: weakness; denies: chills, diaphoresis, fatigue, fever, malaise, sweats, others EENTM: denies: blurred vision, double vision, ear bleeding, ear discharge, ear drainage, ear pain, ear ringing, eye pain, eye redness, hearing loss, mouth pain, mouth swelling, nasal discharge, nose bleeding, nose congestion, nose pain, photophobia, tearing, throat pain, throat swelling, voice changes, others Respiratory: denies: cough, hemoptysis, orthopnea, SOB at rest, shortness of breath, SOB with excertion, stridor, wheezing, others Cardiovascular: denies: chest pain, dizzy spells, diaphoresis, Dyspnea on exertion, edema, irregular heart beat, left arm pain, lightheadedness, palpitations, PND, syncope, others Gastrointestinal: reports: abdominal pain; denies: abdomen distended, blood streaked bowels, constipated, diarrhea, dysphagia, difficulty swallowing, hematemesis, melena, nausea, poor appetite, poor fluid intake, rectal bleeding, rectal pain, vomiting, others Genitourinary: denies: burning, dysuria, flank pain, frequency, hematuria, incontinence, penile discharge, penile sore, pain, testicle pain, testicle swelling, urgency, others Neurological: denies: dizziness, fainting, headache, left sided numbness, left sided weakness, numbness, paresthesia, pre-existing deficit, right sided numbness, right sided weakness, seizure, speech problems, tingling, tremors, weakness, others Musculoskeletal: denies: back pain, gout, joint pain, joint swelling, muscle pain, muscle stiffness, neck pain, others Integumetry: denies: bruises, change in color, change in hair/nails, dryness, laceration, lesions, lumps, rash, wounds, others Allergic/Immunocompromised: denies: Difficulty Healing, Frequent Infections, Hives, Itching, others Hematologic/Lymphatic: denies: anemia, blood clots, easy bleeding, easy bruising, swollen glands, others Endocrine: denies: excessive hunger, excessive sweating, excessive thirst, excessive urination, flushing, intolerance to cold, intolerance to heat, unexplained weight gain, unexplained weight loss, others Psychiatric: denies: anxiety, bipolar disorder, depression, hopeless, panic disorder, schizophrenia, sleepless, suicidal, others Physical Exam General Appearance: Normal, Severe Distress HEENT: Normal ENT Inspection, Pharynx Normal, TMs Normal Neck: Full Range of Motion, Non-Tender, Normal, Normal Inspection Respiratory: Chest Non-Tender, Lungs Clear, No Accessory Muscle Use, No Respiratory Distress, Normal Breath Sounds Cardiovascular: No Edema, No JVD, No Murmur, No Gallop, Normal Peripheral Pulses, Regular Rate/Rhythm Breast Exam: Deferred Gastrointestinal: No Organomegaly, Non Tender, No Pulsatile Mass, Normal Bowel Sounds, Soft Genitalia: Deferred Pelvic: Deferred Rectal: Deferred Extremities: No calf tenderness, Normal capillary refill, Normal inspection, Normal range of motion, Non-tender, No pedal edema Musculoskeletal : Apperance: Normal Neurologic: Alert, contracts officer II-XII nml as Tested, No Motor Deficits, Normal Affect, Normal Mood, No Sensory Deficits Cerebellar Function: Normal Reflexes: Normal Skin: Dry, Normal Color, Warm Lymphatic: No Adenopathy Was a procedure done? Was a procedure done?: No Differential Dx Considerations may include: anemia, electrolyte imbalance, gastric cancer, neuropathy X-Ray, Labs, Meds, VS Vital Signs Date Time Temp Pulse Resp B/P (MAP) Pulse Ox O2 Delivery O2 Flow Rate FiO2 07/13/24 02:00 88 11 114/71 (85) 99 07/13/24 00:00 89 10 113/69 (84) 100 07/12/24 23:00 89 10 115/70 (85) 100 07/12/24 22:07 90 10 119/75 07/12/24 22:00 97.8 90 10 119/75 (90) 100 97.8 07/12/24 21:37 96 14 115/73 07/12/24 21:35 97.8 96 14 115/73 (87) 97 97.8 07/12/24 21:35 Nasal Cannula* 2 28 07/12/24 21:30 97.8 109 16 88/60 (69) 96 97.8 07/12/24 21:28 97 07/12/24 19:14 98.2 100 18 128/82 (97) 98 Lab Test 07/12/24 21:18 07/12/24 21:00 07/12/24 19:54 Range/Units POC Glucose 108 H 70-106 mg/dl Troponin I High Sensitivity < 3 L 3 L </=54 ng/L White Blood Count 23.0 #H 4.4-10.8 10^3/uL Red Blood Count 3.82 L 4.5-5.90 10^6/uL Hemoglobin 9.7 L 13.5-17.5 g/dL Hematocrit 30.7 L 41.0-53.0 % Mean Corpuscular Volume 80.3 80.0-100.0 fL Mean Corpuscular Hemoglobin 25.3 L 28.0-32.0 pg Mean Corpuscular Hemoglobin Concent 31.6 L 32.0-36.0 g/dL Red Cell Distribution Width 22.0 H 11.8-14.3 % Platelet Count 148 140-450 10^3/uL Mean Platelet Volume 8.8 6.9-10.8 fL Neutrophils (%) (Auto) 37.0-80.0 % Lymphocytes (%) (Auto) 10.0-50.0 % Monocytes (%) (Auto) 0.0-12.0 % Basophils (%) (Auto) 0.0-2.0 % Neutrophils # (Auto) 1.6-8.6 10 ^3/uL Lymphocytes # (Auto) 0.4-5.4 10 ^3/uL Monocytes # (Auto) 0-1.3 10 ^3/uL Differential Total Cells Counted 100.0 100 Neutrophils % (Manual) 88 H 37.0-80.0 Band Neutrophils % (Manual) 1 Lymphocytes % (Manual) 8 L 10.0-50.0 Monocytes % (Manual) 3 0-12 Eosinophils % (Manual) 0 0-7 Basophils % (Manual) 0 0.0-2.0 Metamyelocytes % (manual) 0 Myelocytes % (Manual) 0 Promyelocytes % (Manual) 0 Blast Cells % (Manual) 0 Reactive Lymphocytes 0 Platelet Estimate Adequate Anisocytosis (manual) Slight Prothrombin Time 10.9 9.3-11.8 sec Prothrombin Time INR 1.03 0.9-1.15 Activated Partial Thromboplast Time 25.6 24.5-34.5 SEC Sodium Level 133 L 136-145 mmol/L Potassium Level 3.4 L 3.5-5.1 mmol/L Chloride Level 96 L 98-107 mmol/L Carbon Dioxide Level 32 H 20-31 mmol/L Anion Gap 5 5-15 Blood Urea Nitrogen 10 9-23 mg/dL Creatinine 0.60 L 0.700-1.30 mg/dL Glomerular Filtration Rate Calc 109 >90 mL/min BUN/Creatinine Ratio 16.7 10.0-20.0 Serum Glucose 146 H 74-106 mg/dL Calcium Level 7.5 L 8.7-10.4 mg/dL Total Bilirubin 0.3 0.2-1.0 mg/dL Aspartate Amino Transferase (AST) 92 H 13-40 U/L Alanine Aminotransferase (ALT) 30 7-40 U/L Alkaline Phosphatase 158 H 46-116 U/L B-Type Natriuretic Peptide 19.37 0-100 pg/mL Total Protein 5.0 L 5.7-8.2 g/dL Albumin 2.8 L 3.2-4.8 g/dL Current Medications Medications (Trade) Dose Ordered Sig/Polina Route Start Time Stop Time Status Last Admin Hydromorphone HCl (Dilaudid Injection) 1 mg ONCE ONCE IV 07/12/24 19:30 07/12/24 19:37 DC 07/12/24 21:37 Ondansetron HCl (Zofran) 4 mg ONCE ONCE IV 07/12/24 19:30 07/12/24 19:37 DC 07/12/24 21:37 CHEST RADIOGRAPH Indication: abd pain Technique: Single frontal view of the chest was obtained Comparison: XY CHEST XRAY 1 VIEW on DOS: 06/29/24, XY CHEST XRAY 1 VIEW on DOS: 06/27/24, XY CHEST XRAY 1 VIEW on DOS: 05/15/24 FINDINGS: Lines and Tubes: Right-sided port with catheter tip terminating cavoatrial junction. Lungs: Clear Pleura: No effusion. No pneumothorax. Cardiomediastinal contours: Unremarkable Bones: Unremarkable IMPRESSION: Clear lungs. First troponin is three. Second troponin is three. EKG shows no signs of ischemia. [place] [address]. The patient was placed on Zosyn. CMP shows electrolyte imbalance and elevated LFTs. The patient was given morphine and Zofran for severe left lower quadrant pain with probable extension of the gastric/colon cancer. The patient was discharged five days ago with similar symptoms and underwent a complete workup. The patient will be admitted to the hospitalist for further evaluation and care. Time of 1ST Reevaluation: 19:15 Reevaluation 1ST: Unchanged Patient Education/Counseling: Diagnosis, Treatment Family Education/Counseling: No Family Present Departure 1 Departure Time of Disposition: 02:27 Impression: Primary Impression: Gastric adenocarcinoma Additional Impressions: Chronic pain Qualified Codes: G89.3 - Neoplasm related pain (acute) (chronic) Leukocytosis Qualified Codes: D72.829 - Elevated white blood cell count, unspecified Abdominal pain Qualified Codes: R10.84 - Generalized abdominal pain Disposition: 09 ADMITTED INPATIENT Admit to: Tele Condition: Guarded Critical Care Note Critical Care Time?: Yes (35 min-critical care time only) Stability Stability form required: No Heart Score Heart Score: Heart Score Response (Comments) Value History N/A 0 EKG N/A 0 Age N/A 0 Risk Factors N/A 0 Troponin 1-2 x's Normal limit 1 Total 1 I personally scribed for ARUN YODER MD ([email or web address]) on 07/12/24 at 19:23. Electronically submitted by Marco Sheppard ([facility]). I personally scribed for ARUN YODER MD ([email or web address]) on 07/12/24 at 21:26. Electronically submitted by Marco Sheppard ([email or web address]). ARUN YODER MD Jul 12, 2024 19:23
[2024-07-12 20:13] LABS: Hematocrit 30.7 % (41.0-53.0); Hemoglobin 9.7 g/dL (13.5-17.5)
[2024-07-12 20:15] LABS: Mean Corpuscular Hemoglobin 25.3 pg (28.0-32.0); Mean Corpuscular Hgb Conc. 31.6 g/dL (32.0-36.0); Mean Corpuscular Volume 80.3 fL (80.0-100.0); Platelet Count (auto) 148 10^3/uL (140-450); Red Blood Cells 3.82 10^6/uL (4.5-5.90)
[2024-07-12 20:28] LABS: Alanine Aminotransferase 30 U/L (7-40); Anion Gap 5 (5-15); BUN/Creatinine Ratio 16.7 (10.0-20.0); Blood Urea Nitrogen 10 mg/dL (9-23)
[2024-07-12 20:29] LABS: Bilirubin, Total 0.3 mg/dL (0.2-1.0)
[2024-07-12 20:32] LABS: Basophils % (manual) 0 (0.0-2.0); Blast Cells 0; Eosinophils % (manual) 0 (0-7); Metamyelocytes % 0; Myelocytes % 0; Promyelocytes % 0; Reactive Lymphocytes 0
[2024-07-12 20:37] LABS: INR 1.03 (0.9-1.15); Partial Thromboplastin Time 25.6 SEC (24.5-34.5); Prothrombin Time 10.9 sec (9.3-11.8)
[2024-07-12 20:38] LABS: Albumin 2.8 g/dL (3.2-4.8); Alkaline Phosphatase 158 U/L (46-116); Aspartate Aminotransferase 92 U/L (13-40); Calcium 7.5 mg/dL (8.7-10.4); Carbon Dioxide 32 mmol/L (20-31); Chloride 96 mmol/L (98-107); Glucose 146 mg/dL (74-106); Potassium 3.4 mmol/L (3.5-5.1); Sodium 133 mmol/L (136-145)
--- NOTE | 2024-07-12 21:13 | DVH ---
CHEST RADIOGRAPH Indication: abd pain Technique: Single frontal view of the chest was obtained Comparison: XY CHEST XRAY 1 VIEW on DOS: 06/29/24, XY CHEST XRAY 1 VIEW on DOS: 06/27/24, XY CHEST XRAY 1 VIEW on DOS: 05/15/24 FINDINGS: Lines and Tubes: Right-sided port with catheter tip terminating cavoatrial junction. Lungs: Clear Pleura: No effusion. No pneumothorax. Cardiomediastinal contours: Unremarkable Bones: Unremarkable IMPRESSION: Clear lungs.
[2024-07-12] MEDS: HYDROmorphone HCL 2 MG/ML VL/or syr IV ONE (21:37)
[2024-07-12] MEDS: ONDANSETRON HCL 4 MG/2 ML VIAL IV ONE (21:37)
[2024-07-12 22:16] LABS: Band Neutrophils % (manual) 1; Lymphocytes % (manual) 8 (10.0-50.0); Monocytes % (manual) 3 (0-12)
[2024-07-12 22:17] LABS: Anisocytosis Slight; Platelet Estimate Adequate
[2024-07-13] MEDS: PIPERACILLIN-TAZOB 3.375GM 100 ML IV ONE (03:13)
[2024-07-13] MEDS: ONDANSETRON HCL 4 MG/2 ML VIAL IV ONE (03:38)
[2024-07-13] MEDS: HYDROmorphone HCL 2 MG/ML VL/or syr IV ONE (03:39)
[2024-07-13] MEDS ORDERED: MORPHINE SULFATE INJ 2 MG/ml SYRG IV PRN (03:45)
[2024-07-13] MEDS ORDERED: NITROGLYCERIN 0.4 MG SL TAB SL PRN (03:45)
[2024-07-13] MEDS ORDERED: DOCUSATE SOD 100 MG CAP PO PRN (03:45)
[2024-07-13] MEDS ORDERED: DEXTROSE (50%) 50ML SYRG IV PRN (03:45)
[2024-07-13] MEDS ORDERED: ACETAMINOPHEN 325 MG TAB PO PRN (03:45)
[2024-07-13 03:51] LABS: Urine Bacteria FEW /hpf (None Seen); Urine Blood Negative /uL (Negative); Urine Budding Yeast OCCASIONAL /hpf (None Seen); Urine Clarity Clear (Clear); Urine Color Light-Yellow (Yellow); Urine Mucus FEW (None Seen); Urine Protein, UAD TRACE (Negative); Urine Specific Gravity 1.012 (1.001-1.035); Urine Squamous Epithelial Cell FEW /hpf (<5); Urine Urobilinogen Normal (Negative); Urine WBC 4 /HPF (0-3)
--- NOTE | 2024-07-13 03:51 | DVHHP2 ---
History of Present Illness Reason for Visit: Generalized weakness History of Present Illness The patient is a 64-year-old male with past medical history of anemia, DM, hypertension, cancer, and hyperlipidemia who presented to [facility] ED with complaint of generalized weakness. Patient reports he has been experienc ing left lower quadrant abdominal pain, bilateral leg numbness, and progressively worsening generalized weakness. Patient was seen and evaluated in the ED, laboratory data shows WBC 23.0, hemoglobin 9.7, hematocrit 30.7, platelets 148, sodium 133, potassium 3.4, BUN 10, creatinine 0.60, GFR 109, glucose 146, AST 92, ALT 30, troponin < 3, albumin 2.8, protein 5.0. Patient was started on IV antibiotic regimen Zosyn, please see medication orders section in the computer. On my assessment, patient denied chest pain, headache, no dizziness, no shortness of breaths, no abdominal pain at this moment, no diarrhea, no nausea, no vomiting, no fever, no chills. Patient was admitted for further evaluation and medical management. Past Medical History Anemia, Cancer, DM, High Lipids, HTN Gastric adenocarcinoma Past Surgical History Denies all surgeries Family History Reviewed, noncontributory to the management of this case. Past Social History The patient lives at home, denies smoking, alcohol or illicit drugs abuse. Review of Systems Constitutional: Yes: Weakness; No: Fever, Chills, Sweats, Malaise, Other Eyes: No: Pain, Vision change, Conjunctivae inflammation, Eyelid inflammation, Other, Redness ENT: No: Ear pain, Ear discharge, Nose pain, Nose discharge, Nose congestion, Mouth pain, Mouth swelling, Throat pain, Throat swelling, Other Respiratory: No: Cough, Dry, Shortness of breath, SOB with excertion, Wheezing, Hemoptysis, Pleuritic Pain, Sputum, Wheezing, Other Cardiovascular: No: Chest Pain, Palpitations, Orthopnea, Paroxysmal Noc. Dyspnea, Edema, Lt Headedness, Other Gastrointestinal: Abdominal Pain; No: Nausea, Vomiting, Diarrhea, Constipation, Melena, Hematochezia, Other Genitourinary: No Dysuria, No Frequency, No Incontinence, No Hematuria, No Retention, No Other Musculoskeletal: No: other, neck pain, shoulder pain, arm pain, back pain, hand pain, leg pain, foot pain Skin: No: Rash, Lesions, Jaundice, Bruising, Other Neurological: No: Weakness, Numbness, Incoordination, Change in speech, Confusion, Seizures, Other Allergies: Coded Allergies: Amoxicillin (Verified Allergy, Severe, 06/03/24) Exam Vital Signs Vital Signs Date Time Temp Pulse Resp B/P (MAP) Pulse Ox O2 Delivery O2 Flow Rate FiO2 07/13/24 03:39 89 16 128/86 07/13/24 02:00 99 07/12/24 22:00 97.8 97.8 07/12/24 21:35 Nasal Cannula* 2 28 General Appearance: Alert, Oriented X3, Cooperative, No acute distress HEENT: Atraumatic, PERRLA, EOMI, Mucous membr. moist/pink Respiratory: Clear to auscultation, Normal air movement Cardiovascular: Regular rate, Normal S1, Normal S2, No murmurs Abdominal: Normal bowel sounds, Soft, No hepatospenomegaly, No masses, Other (Reports tenderness) Extremities: No clubbing, No cyanosis, No edema, Normal pulses, No tenderness/swelling Skin: No rashes, No breakdown, No significant lesion Neuro: Normal speech, Normal tone, Sensation intact, Cranial nerves 3-12 NL, Reflexes 2+, Other (Generalized weakness) Psych/Mental Status: Mental status NL, Mood NL Labs/Xrays Labs Test 07/13/24 03:30 07/12/24 21:18 07/12/24 21:00 07/12/24 19:54 Range/Units POC Glucose 108 H 70-106 mg/dl Troponin I High Sensitivity < 3 L </=54 ng/L White Blood Count 23.0 #H 4.4-10.8 10^3/uL Red Blood Count 3.82 L 4.5-5.90 10^6/uL Hemoglobin 9.7 L 13.5-17.5 g/dL Hematocrit 30.7 L 41.0-53.0 % Mean Corpuscular Volume 80.3 80.0-100.0 fL Mean Corpuscular Hemoglobin 25.3 L 28.0-32.0 pg Mean Corpuscular Hemoglobin Concent 31.6 L 32.0-36.0 g/dL Red Cell Distribution Width 22.0 H 11.8-14.3 % Platelet Count 148 140-450 10^3/uL Mean Platelet Volume 8.8 6.9-10.8 fL Neutrophils (%) (Auto) 37.0-80.0 % Lymphocytes (%) (Auto) 10.0-50.0 % Monocytes (%) (Auto) 0.0-12.0 % Basophils (%) (Auto) 0.0-2.0 % Neutrophils # (Auto) 1.6-8.6 10 ^3/uL Lymphocytes # (Auto) 0.4-5.4 10 ^3/uL Monocytes # (Auto) 0-1.3 10 ^3/uL Differential Total Cells Counted 100.0 100 Neutrophils % (Manual) 88 H 37.0-80.0 Band Neutrophils % (Manual) 1 Lymphocytes % (Manual) 8 L 10.0-50.0 Monocytes % (Manual) 3 0-12 Eosinophils % (Manual) 0 0-7 Basophils % (Manual) 0 0.0-2.0 Metamyelocytes % (manual) 0 Myelocytes % (Manual) 0 Promyelocytes % (Manual) 0 Blast Cells % (Manual) 0 Reactive Lymphocytes 0 Platelet Estimate Adequate Anisocytosis (manual) Slight Prothrombin Time 10.9 9.3-11.8 sec Prothrombin Time INR 1.03 0.9-1.15 Activated Partial Thromboplast Time 25.6 24.5-34.5 SEC Sodium Level 133 L 136-145 mmol/L Potassium Level 3.4 L 3.5-5.1 mmol/L Chloride Level 96 L 98-107 mmol/L Carbon Dioxide Level 32 H 20-31 mmol/L Anion Gap 5 5-15 Blood Urea Nitrogen 10 9-23 mg/dL Creatinine 0.60 L 0.700-1.30 mg/dL Glomerular Filtration Rate Calc 109 >90 mL/min BUN/Creatinine Ratio 16.7 10.0-20.0 Serum Glucose 146 H 74-106 mg/dL Calcium Level 7.5 L 8.7-10.4 mg/dL Total Bilirubin 0.3 0.2-1.0 mg/dL Aspartate Amino Transferase (AST) 92 H 13-40 U/L Alanine Aminotransferase (ALT) 30 7-40 U/L Alkaline Phosphatase 158 H 46-116 U/L B-Type Natriuretic Peptide 19.37 0-100 pg/mL Total Protein 5.0 L 5.7-8.2 g/dL Albumin 2.8 L 3.2-4.8 g/dL PATIENT: LORETA ELENA ACCT: [id number] UNIT: [id number] : 1960 LOC: ER ROOM / BED: / AGE / SEX: 64 / M ADM STATUS: REG ER SERVICE 28 ORDERING PHYSICIAN: ARUN YODER MD PROCEDURE(s): CXRP - CHEST PORTABLE REASON: abd pain ORDER NUMBER(s): [id number], ACCESSION NUMBER(s): [id number] CHEST RADIOGRAPH Indication: abd pain Technique: Single frontal view of the chest was obtained Comparison: XY CHEST XRAY 1 VIEW on DOS: 06/29/24, XY CHEST XRAY 1 VIEW on DOS: 06/27/24, XY CHEST XRAY 1 VIEW on DOS: 05/15/24 FINDINGS: Lines and Tubes: Right-sided port with catheter tip terminating cavoatrial junction. Lungs: Clear Pleura: No effusion. No pneumothorax. Cardiomediastinal contours: Unremarkable Bones: Unremarkable IMPRESSION: Clear lungs. Assessment/Plan Assessment/Plan Generalized weakness Gastric adenocarcinoma Abdominal pain Neoplasm related pain (acute) (chronic) Leukocytosis, unspecified Generalized abdominal pain Plan 1. Admit to generalized weakness 2. Breathing treatment 3. Pain control management 4. IV antibiotic management 5. Management of fluids and electrolytes 6. Consultation for hospitalized 7. Diagnostic test chest x-ray 8. DVT prophylaxis-on SCDs 9. Repeat labs CBC, CMP in a.m. 10. Continue with current medical management 11. Treatment plan discussed with patient and RN. Patient verbalized un derstanding. Plan discussed with: Patient, Other (RN) My Orders Orders - KELVIN OGLESBY DNP Procedure Category Date Status Time Complete Blood Count LAB 07/13/24 Verified 03:42 Comprehensive LAB 07/13/24 Verified Metabolic Panel 03:42 Pantoprazole PHA 07/13/24 Verified (Protonix) 10:00 Aspirin Tablet PHA 07/13/24 Verified 10:00 Atorvastatin (Lipitor) PHA 07/13/24 Verified 22:00 Zosyn Extended PHA 07/13/24 Verified Infusion 06:00 Calcium Ivpb PHA 07/13/24 Verified 03:45 Potassium Er Tablet PHA 07/13/24 Verified (Klor-Con Tablet) 03:45 Problem List: (1) Generalized weakness (2) Generalized abdominal pain (3) Abdominal pain (4) Gastric adenocarcinoma (5) Leukocytosis, unspecified (6) Neoplasm related pain (acute) (chronic) Date of Service: Jul 13, 2024 Billing Provider: KELVIN OGLESBY DNP Common Visit Codes: [id number]-[id number] INP/OBS CARE (HIGH) KELVIN OGLESBY DNP Jul 13, 2024 03:51
[2024-07-13] MEDS: CALCIUM GLUC 1,000mg/50ml-NS 50 ML IV ONE (04:12)
[2024-07-13] MEDS: POTASSIUM CHL 20 Meq TABLET PO ONE (04:12)
[2024-07-13] MEDS: SODIUM CHLORIDE 0.9% 1,000 ML IV SCH (04:12)
[2024-07-13 05:01] LABS: Mean Corpuscular Volume 80.2 fL (80.0-100.0); Platelet Count (auto) 122 10^3/uL (140-450)
[2024-07-13 05:04] LABS: Hematocrit 31.5 % (41.0-53.0); Mean Corpuscular Hemoglobin 25.4 pg (28.0-32.0); Mean Corpuscular Hgb Conc. 31.6 g/dL (32.0-36.0); Red Blood Cells 3.93 10^6/uL (4.5-5.90)
[2024-07-13 05:16] LABS: Red Cell Distribution Width 21.8 % (11.8-14.3)
[2024-07-13 05:17] LABS: Alanine Aminotransferase 30 U/L (7-40); Anion Gap 3 (5-15); BUN/Creatinine Ratio 16.4 (10.0-20.0); Basophils % (manual) 0 (0.0-2.0); Blast Cells 0; Blood Urea Nitrogen 9 mg/dL (9-23); Eosinophils % (manual) 0 (0-7); Metamyelocytes % 0; Monocytes % (manual) 0 (0-12); Myelocytes % 0; Promyelocytes % 0; Reactive Lymphocytes 0
[2024-07-13 05:18] LABS: Bilirubin, Total 0.4 mg/dL (0.2-1.0)
[2024-07-13 05:59] LABS: Albumin 2.7 g/dL (3.2-4.8); Alkaline Phosphatase 145 U/L (46-116); Aspartate Aminotransferase 82 U/L (13-40); Calcium 7.6 mg/dL (8.7-10.4); Carbon Dioxide 35 mmol/L (20-31); Chloride 96 mmol/L (98-107); Glucose 118 mg/dL (74-106); Potassium 3.3 mmol/L (3.5-5.1); Sodium 134 mmol/L (136-145)
[2024-07-13] MEDS: InsuLIN REG 1unit/0.01ml Soln (100units/ml) SC SCH (06:36)
[2024-07-13] MEDS: ACCU-CHEK COMFORT CURVE STRIP VI SCH (06:36)
[2024-07-13] MEDS: HYDROcodone-ACET 5/325MG TAB PO PRN (06:36)
[2024-07-13 08:00] VITALS: PULSE 94; RESP 13; O2SAT 99
[2024-07-13 08:07] LABS: Total Protein 4.8 g/dL (5.7-8.2)
[2024-07-13 08:38] LABS: Band Neutrophils % (manual) 3; Lymphocytes % (manual) 19 (10.0-50.0); Platelet Estimate Decreased
[2024-07-13] MEDS: ASPirin 81 mg TAB PO SCH (10:39)
[2024-07-13] MEDS: PIPERACILLIN-TAZOB 3.375GM 100 ML IV SCH (10:40)
[2024-07-13] MEDS: PANTOPRAZOLE 40 MG/10 ML VIAL INJ IV SCH (10:40)
[2024-07-13 11:38] VITALS: PULSE 88; RESP 99; O2SAT 98; O2SAT 99
--- NOTE | 2024-07-13 18:30 | DVHPN2 ---
Subjective 07/13-patient is seen in ED bed 9, complaining of epigastric/subxiphoid/left upper quadrant pain, there is some left upper quadrant tender to palpation/epigastrium tender to palpation/xiphoid tender to palpation. Bowel sounds normal, lung sounds normal. No symptoms of nausea and vomiting or diarrhea. Unclear if patient has decreased p.o. intake. Patient has ongoing diagnosis of cancer which may be advanced. Recently admitted for acute urinary retention requiring Ng which was to see and prior admitted for edema given Lasix and prior to that recently admitted for C diff with completed vancomycin p.o. oral course. Patient complains of pain and weakness and vague symptoms. Bicarb is elevated getting ABG, on admit WBC leukocytosis elevated with neutrophilia, concern for possible infection; platelets are declining 140-122. On workup is largely benign CXR normal, TSH normal, ammonia normal, troponins negative, BNP within normal limits,. There are many stable labs which has been elevated/low in the past, including: LFTs are mildly raised with ALP raised, total protein low, albumin low, calcium carotid chest below normal limit. Unclear what is the cause of pain and weakness, we will get CT abdomen to rule out any acute causes. Patient was multiple readmit for multiple different primary issues. Prognosis very poor. Reviewed: H&P Changes from previous H/P or p: No Changes General: Per HPI Objective Vitals Vital Signs Date Time Temp Pulse Resp B/P (MAP) Pulse Ox O2 Delivery O2 Flow Rate FiO2 07/13/24 16:00 81 07/13/24 14:00 98.4 11 125/71 (89) 94 98.4 07/13/24 11:38 Nasal Cannula* 2 28 Intake/Output Intake and Output 07/13/24 07:00 Intake Total 270 ml Output Total 900 ml Balance -630 ml Intake IV Total 270 ml Output Urine Total 900 ml Exam GEN: Healthy appearing, well-developed, NAD. HEENT: NC/AT; MMM. CV: RRR, no m/r/g. LUNGS: Bibasilar rales. ABD: Tenderness epigastrium/left upper quadrant EXT: skin Warm, well perfused. no rashes. No clubbing, cyanosis, or edema. NEURO: Weakness in all extremities 3 of 5. Unclear if sensation is intact. Cranial nerves 2-12 intact. Medications Current Medications Medications Dose Ordered Sig/Polina Route Start Time Stop Time Status Last Admin Dose Admin Pantoprazole Sodium 40 mg DAILY IV 07/13/24 10:00 07/13/24 10:40 40 MG Aspirin 81 mg DAILY PO 07/13/24 10:00 07/13/24 10:39 81 MG Atorvastatin Calcium 10 mg HS PO 07/13/24 22:00 Piperacillin Sod/ Tazobactam Sod 100 ml @ 25 mls/hr Q8H IV 07/13/24 11:00 07/13/24 10:40 25 MLS/HR Diagnostic Test (Pha) 1 strip ACHS 07/13/24 07:00 07/13/24 17:20 1 STRIP Insulin Human Regular ACHS SC 07/13/24 07:00 Dextrose 50 ml UD PRN IV 07/13/24 03:45 Sodium Chloride 1,000 ml @ 60 mls/hr [id number] IV 07/13/24 03:45 07/13/24 04:12 60 MLS/HR Acetaminophen/ Hydrocodone Bitart 1 tab Q4HP PRN PO 07/13/24 03:45 07/13/24 15:12 1 TAB Ondansetron HCl 4 mg Q4HP PRN IV 07/13/24 03:45 Docusate Sodium 100 mg BIDPRN PRN PO 07/13/24 03:45 Acetaminophen 650 mg Q6HP PRN PO 07/13/24 03:45 Morphine Sulfate 2 mg Q4HPRN PRN IV 07/13/24 18:15 UNV Laboratory Results Laboratory Tests 07/13/24 04:26 Chemistry Test 07/12/24 19:54 07/13/24 04:26 Albumin 2.8 g/dL (3.2-4.8) L 2.7 g/dL (3.2-4.8) L Calcium Level 7.5 mg/dL (8.7-10.4) L 7.6 mg/dL (8.7-10.4) L Total Protein 5.0 g/dL (5.7-8.2) L 4.8 g/dL (5.7-8.2) L Coagulation Test 07/12/24 19:54 Prothrombin Time 10.9 sec (9.3-11.8) Prothrombin Time INR 1.03 (0.9-1.15) Activated Partial Thromboplast Time 25.6 SEC (24.5-34.5) Cardiac Markers Test 07/12/24 19:54 B-Type Natriuretic Peptide 19.37 pg/mL (0-100) LFT Test 07/12/24 19:54 07/13/24 04:26 Alanine Aminotransferase (ALT) 30 U/L (7-40) 30 U/L (7-40) Alkaline Phosphatase 158 U/L (46-116) H 145 U/L (46-116) H Aspartate Amino Transferase (AST) 92 U/L (13-40) H 82 U/L (13-40) H Total Bilirubin 0.3 mg/dL (0.2-1.0) 0.4 mg/dL (0.2-1.0) HgA1c, TSH Test 07/13/24 04:26 Thyroid Stimulating Hormone (TSH) 2.87 uIU/mL (0.55-4.78) Urinalysis Test 07/13/24 03:30 Urine Color Light-yellow (Yellow) Urine Clarity Clear (Clear) Urine pH 7.0 (5.0-9.0) Urine Specific [place] 1.012 (1.001-1.035) Urine Protein Trace (Negative) H Urine Ketones Negative (Negative) Urine Blood Negative /uL (Negative) Urine Nitrite Negative (Negative) Urine Bilirubin Negative (Negative) Urine Urobilinogen Normal mg/dL (Negative) Urine Leukocyte Esterase Negative /uL (Negative) Urine RBC 3 /hpf (0 - 3) Urine Microscopic WBC 4 /HPF (0-3) H Urine Squamous Epithelial Cells Few /hpf (<5) Urine Bacteria Few /hpf (None Seen) H Urine Mucus Few (None Seen) Urine Yeast (Budding) Occasional /hpf (None Urine Glucose Normal mg/dL (Normal) Labs and/or images reviewed: Labs reviewed by me, Image(s) reviewed by me Assessment/Plan Assessment/Plan 07/13-patient is seen in ED bed 9, complaining of epigastric/subxiphoid/left upper quadrant pain, there is some left upper quadrant tender to palpation/epigastrium tender to palpation/xiphoid tender to palpation. Bowel sounds normal, lung sounds normal. No symptoms of nausea and vomiting or diarrhea. Unclear if patient has decreased p.o. intake. Patient has ongoing diagnosis of cancer which may be advanced. Recently admitted for acute urinary retention requiring Ng which was to see and prior admitted for edema given Lasix and prior to that recently admitted for C diff with completed vancomycin p.o. oral course. Patient complains of pain and weakness and vague symptoms. Bicarb is elevated getting ABG, on admit WBC leukocytosis elevated with neutrophilia, concern for possible infection; platelets are declining 140-122. On workup is largely benign CXR normal, TSH normal, ammonia normal, troponins negative, BNP within normal limits,. There are many stable labs which has been elevated/low in the past, including: LFTs are mildly raised with ALP raised, total protein low, albumin low, calcium carotid chest below normal limit. Unclear what is the cause of pain and weakness, we will get CT abdomen to rule out any acute causes. Patient was multiple readmit for multiple different primary issues. Prognosis very poor. Generalized weakness , likely due to cancer but acute gastroenteritis possible Rule out acute abdomen Fatigue Neutrophilia Leukocytosis Thrombocytopenia Chronic elevated transaminitis and elevated ALP History of acute urinary retention , recurrence possible History of diarrhea and C diff, currently resolved History of anemia Diabetes Hypertension Current gastric carcinoma, currently on chemotherapy Hyperlipidemia - Patient has ongoing diagnosis of cancer which may be advanced. Recently admitted for acute urinary retention requiring Ng which was to see and prior admitted for edema given Lasix and prior to that recently admitted for C diff with completed vancomycin p.o. oral course. Patient complains of pain and weakness and vague symptoms. - Bicarb is elevated getting ABG, - on admit WBC leukocytosis elevated with neutrophilia, concern for possible infection; - platelets are declining 140-122. - CXR normal, TSH normal, ammonia normal, troponins negative, BNP within normal limits,. - There are many stable labs which has been elevated/low in the past, including: LFTs are mildly raised with ALP raised, total protein low, albumin low, calcium carotid chest below normal limit. - on broad-spectrum antibiotics Zosyn, cover gi source - CT abdomen and pelvis pending , this can also assess for bladder retention - GI cocktail x1 -p.r.n. pain control - sliding scale insulin for diabetes mild, hold p.o. meds Diet- full liquid diet DVT prophylaxis-Lovenox GI prophylaxis-Protonix IV daily Med tele Full code Plan discussed with: Patient My Orders Orders - JULIETA YOUNG MD Procedure Category Date Status Time Orthostatic Vital ORDERS 07/13/24 Transmitted Signs 12:41 Morphine Sulfate PHA 07/13/24 Logged Injection 18:15 Ct Ab Pel Wo Con-No CT 07/13/24 Logged Oral Or Iv 18:11 Maalox Plus PHA 07/13/24 Transmitted 18:15 Lidocaine 2% Viscous PHA 07/13/24 Transmitted (Xylocaine 2% Visco 18:15 Sucralfate Susp PHA 07/13/24 Transmitted (Carafate Susp) 18:15 Ketorolac Injection PHA 07/13/24 Transmitted (Toradol Injection) 18:15 Abg W/ Co-Ox RT 07/13/24 Logged 18:15 Date of Service: Jul 13, 2024 Billing Provider: JULIETA YOUNG MD Common Visit Codes: [id number] INP/OBS CARE(HIGH) JULIETA YOUNG MD Jul 13, 2024 18:30
[2024-07-13 18:34] LABS: Base Excess 4.8 mmol/L (-2.0-3.0)
[2024-07-13] MEDS: SUCRALFATE 1 GM/10 ML ORAL SUSP PO ONE (18:36)
[2024-07-13] MEDS: MAALOX PLUS or MAALOX 30 ML PO ONE (18:36)
[2024-07-13] MEDS: LIDOCAINE VISCOUS 2% 15ML UD PO ONE (18:37)
[2024-07-13] MEDS: KETOROLAC TROMETH 30 MG/ML 1ML VIAL IV ONE (18:38)
[2024-07-13 19:33] VITALS: PULSE 78; RESP 12; O2SAT 97
--- NOTE | 2024-07-13 20:08 | DVH ---
Exam: CT CT AB PEL WO CON-NO ORAL OR IV History: abd pain LUQ Comparison Study: CT CT AB PEL WO CON-NO ORAL OR IV on DOS: 06/19/24, CT CT AB PEL WO CON-NO ORAL OR IV on DOS: 06/02/24, CT CT AB PEL WO CON-NO ORAL OR IV on DOS: 05/10/24 Technique: Multidetector spiral CT of the abdomen was performed from lung bases to pubic symphysis. Imaging was performed without IV contrast. Axial, coronal and sagittal multiplanar reformats were ob tained from the axial data set by the technologist. Radiation Dose : 1. Abdomen/Pelvis: CTDIvol 7.34 mGy, DLP 398.51 mGy*cm. Findings: Evaluation of solid organs is limited due to lack of intravenous contrast use. Lung Bases: Cardiomegaly. Coronary artery calcifications. Vascular calcifications of the aorta. Depen dent atelectasis. Trace bilateral pleural effusions, [id number]-right. Liver: The liver is normal in size. No focal lesions. Gallbladder and Biliary Tree: Unremarkable Spleen: Unremarkable Pancreas: The pancreas is grossly normal in appearance. Adrenal Glands: Unremarkable Kidneys: Kidneys are grossly normal without calculi or hydronephrosis. Bladder: Grossly unremarkable for degree of distention. Bowel: Distended stomach. Moderate to large volume diffuse colonic stool. Normal appendix is visuali zed in the right lower quadrant without findings of appendicitis. Ascites: Absent Lymphadenopathy: No mesenteric, retroperitoneal or periportal lymphadenopathy. Abdominal Wall and Mesentery: Diffuse body wall edema and mild diffuse mesenteric congestion. Vasculature: The visualized abdominal aorta is normal in size and caliber. Evaluation of abdominal a nd pelvic vessels is limited due to lack of intravenous contrast. Pelvic Organs: Unremarkable Musculoskeletal: No aggressive focal bony lesions, acute fractures or dislocation. IMPRESSION: Findings are suggestive of fluid overload. Moderate to large volume diffuse colonic stool. Distended stomach. Radiation optimization: All CT scans at this facility use at least one of these dose optimization nancie hniques: automated exposure control mA and/or kV adjustment per patient size (includes targeted exam s where dose is matched to clinical indication) or iterative reconstruction.
[2024-07-13] MEDS: ONDANSETRON HCL 4 MG/2 ML VIAL IV PRN (23:28)
[2024-07-13] MEDS: ATORVASTATIN 20 MG TAB PO SCH (23:29)
[2024-07-14 05:11] LABS: Hemoglobin 9.5 g/dL (13.5-17.5); Platelet Count (auto) 100 10^3/uL (140-450)
[2024-07-14 05:12] LABS: Hematocrit 29.7 % (41.0-53.0); Mean Corpuscular Hemoglobin 25.6 pg (28.0-32.0); Mean Corpuscular Volume 80.1 fL (80.0-100.0); Red Blood Cells 3.72 10^6/uL (4.5-5.90)
[2024-07-14 05:24] LABS: Red Cell Distribution Width 21.4 % (11.8-14.3)
[2024-07-14 05:25] LABS: Alanine Aminotransferase 26 U/L (7-40); Anion Gap 4 (5-15); Basophils % (manual) 0 (0.0-2.0); Blast Cells 0; Chloride 100 mmol/L (98-107); Glucose 92 mg/dL (74-106); Metamyelocytes % 0; Myelocytes % 0; Promyelocytes % 0; Reactive Lymphocytes 0; Sodium 137 mmol/L (136-145)
[2024-07-14 05:31] LABS: Bilirubin, Total 0.4 mg/dL (0.2-1.0)
[2024-07-14 06:16] LABS: Albumin 2.6 g/dL (3.2-4.8); Alkaline Phosphatase 140 U/L (46-116); Aspartate Aminotransferase 76 U/L (13-40); Blood Urea Nitrogen 7 mg/dL (9-23); Calcium 7.6 mg/dL (8.7-10.4); Carbon Dioxide 33 mmol/L (20-31); Potassium 3.4 mmol/L (3.5-5.1); Total Protein 4.7 g/dL (5.7-8.2)
[2024-07-14 07:30] VITALS: PULSE 80; RESP 12; O2SAT 100
[2024-07-14 08:24] LABS: Band Neutrophils % (manual) 10; Eosinophils % (manual) 1 (0-7); Lymphocytes % (manual) 17 (10.0-50.0); Monocytes % (manual) 3 (0-12)
[2024-07-14 08:26] LABS: Anisocytosis Slight; Platelet Estimate Decreased
[2024-07-14] MEDS: MORPHINE SULFATE INJ 2 MG/ml SYRG IV PRN (08:35)
[2024-07-14] MEDS: FLEET ENEMA(ADULT) 135 ML PR ONE (11:00)
[2024-07-14 12:00] VITALS: PULSE 76; RESP 16; O2SAT 98
[2024-07-14] MEDS: LACTULOSE 20Gm/30ML SOLN PO ONE (12:05)
[2024-07-14] MEDS: DOCUSATE SOD 100 MG CAP PO ONE (12:05)
--- NOTE | 2024-07-14 14:47 | DVHPN2 ---
Subjective update 07/14 07/13-patient is seen in ED bed 9, complaining of epigastric/subxiphoid/left upper quadrant pain, there is some left upper quadrant tender to palpation/epigastrium tender to palpation/xiphoid tender to palpation. Bowel sounds normal, lung sounds normal. No symptoms of nausea and vomiting or diarrhea. Unclear if patient has decreased p.o. intake. Patient has ongoing diagnosis of cancer which may be advanced. Recently admitted for acute urinary retention requiring Ng which was to see and prior admitted for edema given Lasix and prior to that recently admitted for C diff with completed vancomycin p.o. oral course. Patient complains of pain and weakness and vague symptoms. Bicarb is elevated getting ABG, on admit WBC leukocytosis elevated with neutrophilia, concern for possible infection; platelets are declining 140-122. On workup is largely benign CXR normal, TSH normal, ammonia normal, troponins negative, BNP within normal limits,. There are many stable labs which has been elevated/low in the past, including: LFTs are mildly raised with ALP raised, total protein low, albumin low, calcium carotid chest below normal limit. Unclear what is the cause of pain and weakness, we will get CT abdomen to rule out any acute causes. Patient was multiple readmit for multiple different primary issues. Prognosis very poor. 07/14 - lab workup for weakness largely insignificant. CT abdomen with no acute findings but does show large stool burden consistent with high-grade constipation. Patient is feeling a little improved we will try bowel regimen and enema today. Patient was having poor p.o. tolerance likely due to constipation. We will keep patient on full liquid diet. Anticipate 1 more day to improve patient's impaction. Plan today for enema, lactulose, docusate, full liquid diet. Reviewed: H&P Changes from previous H/P or p: No Changes General: Per HPI Objective Vitals Vital Signs Date Time Temp Pulse Resp B/P (MAP) Pulse Ox O2 Delivery O2 Flow Rate FiO2 07/14/24 14:08 76 17 138/71 07/14/24 14:00 98 07/14/24 12:00 Room Air* 0 21 07/14/24 12:00 98.5 98.5 Intake/Output Intake and Output 07/14/24 07:00 Intake Total 1520 ml Output Total 500 ml Balance 1020 ml Intake IV Total 1520 ml Output Urine Total 500 ml Exam GEN: Healthy appearing, well-developed, NAD. HEENT: NC/AT; MMM. CV: RRR, no m/r/g. LUNGS: Bibasilar rales. ABD: Tenderness epigastrium/left upper quadrant EXT: skin Warm, well perfused. no rashes. No clubbing, cyanosis, or edema. NEURO: Weakness in all extremities 3 of 5. Unclear if sensation is intact. Cranial nerves 2-12 intact. Medications Current Medications Medications Dose Ordered Sig/Polina Route Start Time Stop Time Status Last Admin Dose Admin Pantoprazole Sodium 40 mg DAILY IV 07/13/24 10:00 07/14/24 09:44 40 MG Aspirin 81 mg DAILY PO 07/13/24 10:00 07/14/24 09:44 81 MG Atorvastatin Calcium 10 mg HS PO 07/13/24 22:00 07/13/24 23:29 10 MG Piperacillin Sod/ Tazobactam Sod 100 ml @ 25 mls/hr Q8H IV 07/13/24 11:00 07/14/24 10:42 25 MLS/HR Diagnostic Test (Pha) 1 strip ACHS 07/13/24 07:00 07/14/24 11:30 1 STRIP Insulin Human Regular ACHS SC 07/13/24 07:00 Dextrose 50 ml UD PRN IV 07/13/24 03:45 Sodium Chloride 1,000 ml @ 60 mls/hr [id number] IV 07/13/24 03:45 07/14/24 13:19 60 MLS/HR Acetaminophen/ Hydrocodone Bitart 1 tab Q4HP PRN PO 07/13/24 03:45 07/14/24 04:33 1 TAB Ondansetron HCl 4 mg Q4HP PRN IV 07/13/24 03:45 07/14/24 13:37 4 MG Acetaminophen 650 mg Q6HP PRN PO 07/13/24 03:45 Morphine Sulfate 2 mg Q4HPRN PRN IV 07/13/24 18:15 07/14/24 13:38 2 MG Lactulose 30 ml BID PO 07/14/24 22:00 Docusate Sodium 100 mg BID PO 07/14/24 22:00 Laboratory Results Laboratory Tests 07/14/24 04:41 Chemistry Test 07/14/24 04:41 Albumin 2.6 g/dL (3.2-4.8) L Calcium Level 7.6 mg/dL (8.7-10.4) L Total Protein 4.7 g/dL (5.7-8.2) L LFT Test 07/14/24 04:41 Alanine Aminotransferase (ALT) 26 U/L (7-40) Alkaline Phosphatase 140 U/L (46-116) H Aspartate Amino Transferase (AST) 76 U/L (13-40) H Total Bilirubin 0.4 mg/dL (0.2-1.0) Urinalysis Test 07/13/24 03:30 Urine Color Light-yellow (Yellow) Urine Clarity Clear (Clear) Urine pH 7.0 (5.0-9.0) Urine Specific [place] 1.012 (1.001-1.035) Urine Protein Trace (Negative) H Urine Ketones Negative (Negative) Urine Blood Negative /uL (Negative) Urine Nitrite Negative (Negative) Urine Bilirubin Negative (Negative) Urine Urobilinogen Normal mg/dL (Negative) Urine Leukocyte Esterase Negative /uL (Negative) Urine RBC 3 /hpf (0 - 3) Urine Microscopic WBC 4 /HPF (0-3) H Urine Squamous Epithelial Cells Few /hpf (<5) Urine Bacteria Few /hpf (None Seen) H Urine Mucus Few (None Seen) Urine Yeast (Budding) Occasional /hpf (None Urine Glucose Normal mg/dL (Normal) Blood Gas Results Test 07/13/24 18:28 Arterial Blood pH 7.474 (7.350-7.450) FiO2 % 21.0 Microbiology Microbiology Date/Time Source Procedure Growth Status 07/13/24 04:35 Blood Blood Culture - Preliminary NO GROWTH AFTER 24 HOURS OF INCUBATION. Resulted Labs and/or images reviewed: Labs reviewed by me, Image(s) reviewed by me Assessment/Plan Assessment/Plan 07/14 - lab workup for weakness largely insignificant. CT abdomen with no acute findings but does show large stool burden consistent with high-grade constipation. Patient is feeling a little improved we will try bowel regimen and enema today. Patient was having poor p.o. tolerance likely due to constipation. We will keep patient on full liquid diet. Anticipate 1 more day to improve patient's impaction. Plan today for enema, lactulose, docusate, full liquid diet. Poor p.o. tolerance due to Constipation and fecal impaction Generalized weakness , likely due to cancer but acute gastroenteritis possible Rule out acute abdomen Fatigue Neutrophilia Leukocytosis Thrombocytopenia Chronic elevated transaminitis and elevated ALP History of acute urinary retention , recurrence possible History of diarrhea and C diff, currently resolved History of anemia Diabetes Hypertension Current gastric carcinoma, currently on chemotherapy Hyperlipidemia - Patient has ongoing diagnosis of cancer which may be advanced. Recently admitted for acute urinary retention requiring Ng which was to see and prior admitted for edema given Lasix and prior to that recently admitted for C diff with completed vancomycin p.o. oral course. Patient complains of pain and weakness and vague symptoms. - Bicarb is elevated getting ABG, - on admit WBC leukocytosis elevated with neutrophilia, concern for possible infection; - platelets are declining 140-122. - CXR normal, TSH normal, ammonia normal, troponins negative, BNP within normal limits,. - 07/13 given GI cocktail x1 with some improvement - CT abdomen pelvis: Findings are suggestive of fluid overload. Moderate to large volume diffuse colonic stool. Distended stomach. - no signs of acute abdomen, SBO, bladder retention - There are many stable labs which has been elevated/low in the past, including: LFTs are mildly raised with ALP raised, total protein low, albumin low, calcium carotid chest below normal limit. - bowel regimen with Fleet enema, lactulose, docusate - deescalate antibiotics to Unasyn. Prior on on broad-spectrum antibiotics Zosyn, cover gi source. -p.r.n. pain control - sliding scale insulin for diabetes mild, hold p.o. meds -full liquid diet Diet- full liquid diet DVT prophylaxis-Lovenox GI prophylaxis-Protonix IV daily Med tele Full code Plan discussed with: Patient My Orders Orders - JULIETA YOUNG MD Procedure Category Date Status Time Morphine Sulfate PHA 07/13/24 In Process Injection 18:15 Ct Ab Pel Wo Con-No CT 07/13/24 Resulted Oral Or Iv 18:11 Abg W/ Co-Ox RT 07/13/24 Logged 18:15 Lactulose Oral PHA 07/14/24 In Process 22:00 Docusate Sodium PHA 07/14/24 In Process Capsule (Colace 22:00 Date of Service: Jul 14, 2024 Billing Provider: JULIETA YOUNG MD Common Visit Codes: [id number] INP/OBS CARE(HIGH) JULIETA YOUNG MD Jul 14, 2024 14:47
[2024-07-14 14:50] VITALS: RESP 16; O2SAT 98
[2024-07-14 17:00] VITALS: BP 142/77; PULSE 79; RESP 16; TEMP 97.7; O2SAT 98
[2024-07-14 20:00] VITALS: PULSE 83
[2024-07-14 21:00] VITALS: BP 122/69; PULSE 82; RESP 18; TEMP 98.5; O2SAT 98
[2024-07-14] MEDS: DOCUSATE SOD 100 MG CAP PO SCH (22:10)
[2024-07-14] MEDS: LACTULOSE 20Gm/30ML SOLN PO SCH (22:11)
[2024-07-15 05:00] VITALS: BP 158/81; PULSE 83; RESP 16; TEMP 98.4; O2SAT 98
[2024-07-15 08:00] VITALS: PULSE 76; RESP 16
[2024-07-15 09:00] VITALS: BP 146/77; PULSE 75; RESP 17; TEMP 97.3; O2SAT 100
[2024-07-15] MEDS ORDERED: HYDROcodone-ACET 10/325MG TAB PO PRN (14:00)
[2024-07-15] MEDS ORDERED: METHYLNALTREXONE BROMIDE 12 MG/0.6 ML VIAL SC SCH (14:00)
[2024-07-15] MEDS: METHYLNALTREXONE BROMIDE 12 MG/0.6 ML VIAL SC ONE (15:31)
[2024-07-15] MEDS: FAMOTIDINE (10MG/ML) 2ML VL IV ONE (15:31)
[2024-07-15] MEDS: KETOROLAC TROMETH 30 MG/ML 1ML VIAL IV ONE (15:32)
[2024-07-15] MEDS: GABAPENTIN 300 MG CAP PO SCH (15:38)
[2024-07-15] MEDS: HYDROcodone-ACET 10/325MG TAB PO ONE (16:00)
[2024-07-15 17:12] VITALS: BP 148/83; PULSE 83; RESP 17; TEMP 98; O2SAT 97
--- NOTE | 2024-07-15 17:13 | DVHPN2 ---
Subjective update 07/15 07/13-patient is seen in ED bed 9, complaining of epigastric/subxiphoid/left upper quadrant pain, there is some left upper quadrant tender to palpation/epigastrium tender to palpation/xiphoid tender to palpation. Bowel sounds normal, lung sounds normal. No symptoms of nausea and vomiting or diarrhea. Unclear if patient has decreased p.o. intake. Patient has ongoing diagnosis of cancer which may be advanced. Recently admitted for acute urinary retention requiring Ng which was to see and prior admitted for edema given Lasix and prior to that recently admitted for C diff with completed vancomycin p.o. oral course. Patient complains of pain and weakness and vague symptoms. Bicarb is elevated getting ABG, on admit WBC leukocytosis elevated with neutrophilia, concern for possible infection; platelets are declining 140-122. On workup is largely benign CXR normal, TSH normal, ammonia normal, troponins negative, BNP within normal limits,. There are many stable labs which has been elevated/low in the past, including: LFTs are mildly raised with ALP raised, total protein low, albumin low, calcium carotid chest below normal limit. Unclear what is the cause of pain and weakness, we will get CT abdomen to rule out any acute causes. Patient was multiple readmit for multiple different primary issues. Prognosis very poor. 07/14 - lab workup for weakness largely insignificant. CT abdomen with no acute findings but does show large stool burden consistent with high-grade constipation. Patient is feeling a little improved we will try bowel regimen and enema today. Patient was having poor p.o. tolerance likely due to constipation. We will keep patient on full liquid diet. Anticipate 1 more day to improve patient's impaction. Plan today for enema, lactulose, docusate, full liquid diet. 07/15-patient is in pain again since last night. Pain is epigastric corresponding to cancer. Are as above gastric ulcer from NSAIDs. Patient was starts becoming more lethargic and has episodes of nonresponsiveness with some concern of apnea. Patient was given a Toradol and regained some consciousness. Had a family discussion with goals of care and patient decides to be DNR DNI after confirming patient has decision-making capacity A&O times 3-4. Patient discussed with Oncology with plan to discuss hospice an upcoming appointment on Sunday07/21/2024. Given patient's worsening status over the past24 hours, discussion has had with patient's son about hospice with goal to control pain. We will give time to family to make decisions and continue to monitor patient., we will convert. DNR DNI, continue laxatives, continue pain control while avoiding IV purulence which can cause worsening respiratory depression given patient does have already episodes of hypopnea. Reviewed: H&P Changes from previous H/P or p: No Changes General: Per HPI Objective Vitals Vital Signs Date Time Temp Pulse Resp B/P (MAP) Pulse Ox O2 Delivery O2 Flow Rate FiO2 07/15/24 13:45 78 16 150/82 07/15/24 09:00 97.3 100 97.3 07/15/24 08:00 Room Air* 0 21 Intake/Output Intake and Output 07/15/24 07:00 Intake Total 1405 ml Output Total 475 ml Balance 930 ml Intake Oral 325 ml IV Total 1080 ml Output Urine Total 475 ml Exam GEN: Healthy appearing, well-developed, NAD. HEENT: NC/AT; MMM. CV: RRR, no m/r/g. LUNGS: Bibasilar rales. ABD: Tenderness epigastrium/left upper quadrant EXT: skin Warm, well perfused. no rashes. No clubbing, cyanosis, or edema. NEURO: Weakness in all extremities 3 of 5. Unclear if sensation is intact. Cranial nerves 2-12 intact. Medications Current Medications Medications Dose Ordered Sig/Polina Route Start Time Stop Time Status Last Admin Dose Admin Aspirin 81 mg DAILY PO 07/13/24 10:00 07/15/24 09:15 81 MG Atorvastatin Calcium 10 mg HS PO 07/13/24 22:00 07/14/24 22:11 10 MG Piperacillin Sod/ Tazobactam Sod 100 ml @ 25 mls/hr Q8H IV 07/13/24 11:00 07/15/24 10:27 25 MLS/HR Diagnostic Test (Pha) 1 strip ACHS 07/13/24 07:00 07/15/24 10:30 1 STRIP Insulin Human Regular ACHS SC 07/13/24 07:00 Dextrose 50 ml UD PRN IV 07/13/24 03:45 Sodium Chloride 1,000 ml @ 60 mls/hr [id number] IV 07/13/24 03:45 07/14/24 13:19 60 MLS/HR Ondansetron HCl 4 mg Q4HP PRN IV 07/13/24 03:45 07/14/24 13:37 4 MG Morphine Sulfate 2 mg Q4HPRN PRN IV 07/13/24 18:15 07/15/24 13:15 2 MG Docusate Sodium 100 mg BID PO 07/14/24 22:00 07/15/24 09:15 100 MG Lactulose 30 ml TID PO 07/15/24 22:00 Acetaminophen 650 mg Q6HP PO 07/15/24 18:00 Acetaminophen/ Hydrocodone Bitart 1 tab Q4HP PRN PO 07/15/24 14:00 Ibuprofen 600 mg BID PO 07/15/24 22:00 Sucralfate 1 gm BID@0600,2200 PO 07/15/24 22:00 Famotidine 20 mg Q12HR IV 07/15/24 22:00 Gabapentin 300 mg TID PO 07/15/24 14:00 07/15/24 15:38 300 MG Methylnaltrexone [place] 8 mg Q2D SC 07/17/24 10:00 Ibuprofen 600 mg Q6HP PRN PO 07/15/24 16:00 Laboratory Results Laboratory Tests 07/14/24 04:41 Urinalysis Test 07/13/24 03:30 Urine Color Light-yellow (Yellow) Urine Clarity Clear (Clear) Urine pH 7.0 (5.0-9.0) Urine Specific [place] 1.012 (1.001-1.035) Urine Protein Trace (Negative) H Urine Ketones Negative (Negative) Urine Blood Negative /uL (Negative) Urine Nitrite Negative (Negative) Urine Bilirubin Negative (Negative) Urine Urobilinogen Normal mg/dL (Negative) Urine Leukocyte Esterase Negative /uL (Negative) Urine RBC 3 /hpf (0 - 3) Urine Microscopic WBC 4 /HPF (0-3) H Urine Squamous Epithelial Cells Few /hpf (<5) Urine Bacteria Few /hpf (None Seen) H Urine Mucus Few (None Seen) Urine Yeast (Budding) Occasional /hpf (None Urine Glucose Normal mg/dL (Normal) Microbiology Microbiology Date/Time Source Procedure Growth Status 07/13/24 04:35 Blood Blood Culture - Preliminary NO GROWTH AFTER 48 HOURS OF INCUBATION. Resulted Labs and/or images reviewed: Labs reviewed by me, Image(s) reviewed by me Assessment/Plan Assessment/Plan 07/15-patient is in pain again since last night. Pain is epigastric corresponding to cancer. Are as above gastric ulcer from NSAIDs. Patient was starts becoming more lethargic and has episodes of nonresponsiveness with some concern of apnea. Patient was given a Toradol and regained some consciousness. Had a family discussion with goals of care and patient decides to be DNR DNI after confirming patient has decision-making capacity A&O times 3-4. Patient discussed with Oncology with plan to discuss hospice an upcoming appointment on Sunday07/21/2024. Given patient's worsening status over the past24 hours, discussion has had with patient's son about hospice with goal to control pain. We will give time to family to make decisions and continue to monitor patient., we will convert. DNR DNI, continue laxatives, continue pain control while avoiding IV purulence which can cause worsening respiratory depression given patient does have already episodes of hypopnea. We will keep patient on full liquid diet or as tolerated. Poor p.o. tolerance due to Constipation and fecal impaction Generalized weakness , likely due to cancer but acute gastroenteritis possible Rule out acute abdomen Fatigue Neutrophilia Leukocytosis Thrombocytopenia Chronic elevated transaminitis and elevated ALP History of acute urinary retention , recurrence possible History of diarrhea and C diff, currently resolved History of anemia Diabetes Hypertension Current gastric carcinoma, currently on chemotherapy Hyperlipidemia - Patient has ongoing diagnosis of cancer which may be advanced. Recently admitted for acute urinary retention requiring Ng which was to see and prior admitted for edema given Lasix and prior to that recently admitted for C diff with completed vancomycin p.o. oral course. Patient complains of pain and weakness and vague symptoms - Bicarb is elevated getting ABG - on admit WBC leukocytosis elevated with neutrophilia, concern for possible infection - platelets are declining 140-122 - CXR normal, TSH normal, ammonia normal, troponins negative, BNP within normal limits. - 07/13 given GI cocktail x1 with some improvement - CT abdomen pelvis: Findings are suggestive of fluid overload. Moderate to large volume diffuse colonic stool. Distended stomach. - no signs of acute abdomen, SBO, bladder retention - There are many stable labs which has been elevated/low in the past, including: LFTs are mildly raised with ALP raised, total protein low, albumin low, calcium carotid chest below normal limit. - bowel regimen with Fleet enema, lactulose, docusate - deescalate antibiotics to Unasyn. Prior on on broad-spectrum antibiotics Zosyn, cover gi source. - p.r.n. pain control - sliding scale insulin for diabetes mild, hold p.o. meds - full liquid diet Diet- full liquid diet DVT prophylaxis-Lovenox GI prophylaxis-Protonix IV daily Med tele DNR DNI Plan discussed with: Patient My Orders Orders - JULIETA YOUNG MD Procedure Category Date Status Time Lactulose Oral PHA 07/15/24 In Process 22:00 Acetaminophen Tablet PHA 07/15/24 In Process (Tylenol Tablet) 18:00 Hydrocodone-Acet PHA 07/15/24 In Process 10/325mg Tab ([place] 14:00 Ibuprofen Tablet PHA 07/15/24 In Process (Motrin Tablet) 22:00 Sucralfate Susp PHA 07/15/24 In Process (Carafate Susp) 22:00 Famotidine Injection PHA 07/15/24 In Process (Pepcid Injection) 22:00 Gabapentin Capsule PHA 07/15/24 In Process (Neurontin Capsule) 14:00 Methylnaltrexone PHA 07/17/24 In Process [place] ([place]) 10:00 Ct Head W Wo Contrast CT 07/15/24 Logged 15:44 Ibuprofen Tablet PHA 07/15/24 In Process (Motrin Tablet) 16:00 Code Status CODE 07/15/24 Transmitted 16:09 Date of Service: Jul 15, 2024 Billing Provider: JULIETA YOUNG MD Common Visit Codes: [id number] INP/OBS CARE(HIGH) Secondary Visit Codes: [id number] CARE PLAN 30 MINUTES JULIETA YOUNG MD Jul 15, 2024 17:13
[2024-07-15] MEDS: ACETAMINOPHEN 325 MG TAB PO SCH (18:08)
[2024-07-15 20:00] VITALS: PULSE 65; PULSE 88
[2024-07-15 21:00] VITALS: BP 122/70; PULSE 87; RESP 17; TEMP 98; O2SAT 100
[2024-07-15] MEDS: LACTULOSE 20Gm/30ML SOLN PO SCH (22:28)
[2024-07-15] MEDS: FAMOTIDINE (10MG/ML) 2ML VL IV SCH (22:28)
[2024-07-15] MEDS: SUCRALFATE 1 GM/10 ML ORAL SUSP PO SCH (22:29)
[2024-07-15] MEDS: IBUPROFEN 600 MG TAB PO SCH (22:30)
[2024-07-15] MEDS: D5W/SOD CHL 0.45% 1,000 ML IV ONE (23:05)
--- NOTE | 2024-07-15 23:44 | DVH ---
CT HEAD W WO CONTRAST INDICATION: Per MD Request COMPARISON: None TECHNIQUE: CT of the head without intravenous contrast. RADIATION DOSE: CTDIvol: 53.99 mGy, DLP: 863.9 mGy*cm FINDINGS: There is no evidence of intracranial hemorrhage, infarct, extra-axial collection, mass effect, midli ne shift, herniation or hydrocephalus. The ventricles, sulci and cisterns are normal. The allen-whit e differentiation is normal. Visualized paranasal sinuses and mastoid air cells are clear. Soft tis sues and osseous structures are unremarkable. IMPRESSION: No abnormality demonstrated.
[2024-07-16] VITALS (8 sets, daily range): BP systolic 129–139; BP diastolic 70–90; PULSE 77–92; RESP 17–20; TEMP 98.1–98.5; O2SAT 95–100
[2024-07-16] MEDS: D5W/SOD CHL 0.45% 1,000 ML IV ONE ×2 (10:39→23:45)
--- NOTE | 2024-07-16 15:07 | DVHPN2 ---
Subjective update 07/16 07/13-patient is seen in ED bed 9, complaining of epigastric/subxiphoid/left upper quadrant pain, there is some left upper quadrant tender to palpation/epigastrium tender to palpation/xiphoid tender to palpation. Bowel sounds normal, lung sounds normal. No symptoms of nausea and vomiting or diarrhea. Unclear if patient has decreased p.o. intake. Patient has ongoing diagnosis of cancer which may be advanced. Recently admitted for acute urinary retention requiring Ng which was to see and prior admitted for edema given Lasix and prior to that recently admitted for C diff with completed vancomycin p.o. oral course. Patient complains of pain and weakness and vague symptoms. Bicarb is elevated getting ABG, on admit WBC leukocytosis elevated with neutrophilia, concern for possible infection; platelets are declining 140-122. On workup is largely benign CXR normal, TSH normal, ammonia normal, troponins negative, BNP within normal limits,. There are many stable labs which has been elevated/low in the past, including: LFTs are mildly raised with ALP raised, total protein low, albumin low, calcium carotid chest below normal limit. Unclear what is the cause of pain and weakness, we will get CT abdomen to rule out any acute causes. Patient was multiple readmit for multiple different primary issues. Prognosis very poor. 07/14 - lab workup for weakness largely insignificant. CT abdomen with no acute findings but does show large stool burden consistent with high-grade constipation. Patient is feeling a little improved we will try bowel regimen and enema today. Patient was having poor p.o. tolerance likely due to constipation. We will keep patient on full liquid diet. Anticipate 1 more day to improve patient's impaction. Plan today for enema, lactulose, docusate, full liquid diet. 07/15-patient is in pain again since last night. Pain is epigastric corresponding to cancer. Are as above gastric ulcer from NSAIDs. Patient was starts becoming more lethargic and has episodes of nonresponsiveness with some concern of apnea. Patient was given a Toradol and regained some consciousness. Had a family discussion with goals of care and patient decides to be DNR DNI after confirming patient has decision-making capacity A&O times 3-4. Patient discussed with Oncology with plan to discuss hospice an upcoming appointment on Sunday07/21/2024. Given patient's worsening status over the past24 hours, discussion has had with patient's son about hospice with goal to control pain. We will give time to family to make decisions and continue to monitor patient., we will convert. DNR DNI, continue laxatives, continue pain control while avoiding IV purulence which can cause worsening respiratory depression given patient does have already episodes of hypopnea. 07/16 patient feeling improved this morning, upon the bedside. Family is giving him home cooked food which he is enjoying. Initially ready for discharge. Paged at afternoon with complaint of patient acute onset nausea and vomiting. Patient is lethargic again after emesis. Antiemetics given and family discussion had with plan to give more IV fluids clear liquid diet in small portions only and continue pain control. Likely DC tomorrow with close oncology follow up outpatient Reviewed: H&P Changes from previous H/P or p: No Changes General: Per HPI Objective Vitals Vital Signs Date Time Temp Pulse Resp B/P (MAP) Pulse Ox O2 Delivery O2 Flow Rate FiO2 07/16/24 12:37 98.1 80 18 133/78 (96) 100 98.1 07/16/24 08:15 Room Air* 0 21 Intake/Output Intake and Output 07/16/24 07:00 Intake Total 200 ml Balance 200 ml Intake Oral 100 ml IV Total 100 ml # Voids 2 # Bowel Movements 1 Exam GEN: Healthy appearing, well-developed, NAD. HEENT: NC/AT; MMM. CV: RRR, no m/r/g. LUNGS: Bibasilar rales. ABD: Tenderness epigastrium/left upper quadrant EXT: skin Warm, well perfused. no rashes. No clubbing, cyanosis, or edema. NEURO: Weakness in all extremities 3 of 5. Unclear if sensation is intact. Cranial nerves 2-12 intact. Medications Current Medications Medications Dose Ordered Sig/Polina Route Start Time Stop Time Status Last Admin Dose Admin Atorvastatin Calcium 10 mg HS PO 07/13/24 22:00 07/15/24 22:29 10 MG Piperacillin Sod/ Tazobactam Sod 100 ml @ 25 mls/hr Q8H IV 07/13/24 11:00 07/16/24 11:42 25 MLS/HR Diagnostic Test (Pha) 1 strip ACHS 07/13/24 07:00 07/16/24 11:44 1 STRIP Insulin Human Regular ACHS SC 07/13/24 07:00 Dextrose 50 ml UD PRN IV 07/13/24 03:45 Ondansetron HCl 4 mg Q4HP PRN IV 07/13/24 03:45 07/16/24 12:17 4 MG Morphine Sulfate 2 mg Q4HPRN PRN IV 07/13/24 18:15 07/15/24 13:15 2 MG Docusate Sodium 100 mg BID PO 07/14/24 22:00 07/16/24 09:18 100 MG Lactulose 30 ml TID PO 07/15/24 22:00 07/16/24 05:40 30 ML Acetaminophen 650 mg Q6HP PO 07/15/24 18:00 07/16/24 05:41 650 MG Acetaminophen/ Hydrocodone Bitart 1 tab Q4HP PRN PO 07/15/24 14:00 Ibuprofen 600 mg BID PO 07/15/24 22:00 07/16/24 09:17 600 MG Sucralfate 1 gm BID@0600,2200 PO 07/15/24 22:00 07/16/24 05:40 1 GM Famotidine 20 mg Q12HR IV 07/15/24 22:00 07/16/24 09:18 20 MG Gabapentin 300 mg TID PO 07/15/24 14:00 07/16/24 05:40 300 MG Methylnaltrexone [place] 8 mg Q2D SC 07/17/24 10:00 Ibuprofen 600 mg Q6HP PRN PO 07/15/24 16:00 Laboratory Results Laboratory Tests 07/14/24 04:41 Urinalysis Test 07/13/24 03:30 Urine Color Light-yellow (Yellow) Urine Clarity Clear (Clear) Urine pH 7.0 (5.0-9.0) Urine Specific [place] 1.012 (1.001-1.035) Urine Protein Trace (Negative) H Urine Ketones Negative (Negative) Urine Blood Negative /uL (Negative) Urine Nitrite Negative (Negative) Urine Bilirubin Negative (Negative) Urine Urobilinogen Normal mg/dL (Negative) Urine Leukocyte Esterase Negative /uL (Negative) Urine RBC 3 /hpf (0 - 3) Urine Microscopic WBC 4 /HPF (0-3) H Urine Squamous Epithelial Cells Few /hpf (<5) Urine Bacteria Few /hpf (None Seen) H Urine Mucus Few (None Seen) Urine Yeast (Budding) Occasional /hpf (None Urine Glucose Normal mg/dL (Normal) Microbiology Microbiology Date/Time Source Procedure Growth Status 07/13/24 04:35 Blood Blood Culture - Preliminary NO GROWTH AFTER 72 HOURS OF INCUBATION. Resulted Labs and/or images reviewed: Labs reviewed by me, Image(s) reviewed by me Assessment/Plan Assessment/Plan 07/16 patient feeling improved this morning, upon the bedside. Family is giving him home cooked food which he is enjoying. Initially ready for discharge. Paged at afternoon with complaint of patient acute onset nausea and vomiting. Patient is lethargic again after emesis. Antiemetics given and family discussion had with plan to give more IV fluids clear liquid diet in small portions only and continue pain control. Likely DC tomorrow with close oncology follow up outpatient Poor p.o. tolerance due to Constipation and fecal impaction Generalized weakness , likely due to cancer but acute gastroenteritis possible Rule out acute abdomen Fatigue Neutrophilia Leukocytosis Thrombocytopenia Chronic elevated transaminitis and elevated ALP History of acute urinary retention , recurrence possible History of diarrhea and C diff, currently resolved History of anemia Diabetes Hypertension Current gastric carcinoma, currently on chemotherapy Hyperlipidemia - Patient has ongoing diagnosis of cancer which may be advanced. Recently admitted for acute urinary retention requiring Ng which was to see and prior admitted for edema given Lasix and prior to that recently admitted for C diff with completed vancomycin p.o. oral course. Patient complains of pain and weakness and vague symptoms - Bicarb is elevated getting ABG - on admit WBC leukocytosis elevated with neutrophilia, concern for possible infection - platelets are declining 140-122 - CXR normal, TSH normal, ammonia normal, troponins negative, BNP within normal limits. - 07/13 given GI cocktail x1 with some improvement - CT abdomen pelvis: Findings are suggestive of fluid overload. Moderate to large volume diffuse colonic stool. Distended stomach. - no signs of acute abdomen, SBO, bladder retention - There are many stable labs which has been elevated/low in the past, including: LFTs are mildly raised with ALP raised, total protein low, albumin low, calcium carotid chest below normal limit. - bowel regimen with Fleet enema, lactulose, docusate - deescalate antibiotics to Unasyn. Prior on on broad-spectrum antibiotics Zosyn, cover gi source. - p.r.n. pain control - sliding scale insulin for diabetes mild, hold p.o. meds - clear liquid diet, small portion. Diet- clear liquid diet, small portions. DVT prophylaxis-Lovenox GI prophylaxis- protonix iv bid Med tele DNR DNI Plan discussed with: Erich Gomez Orders Orders - JULIETA YOUNG MD Procedure Category Date Status Time Ibuprofen Tablet PHA 07/15/24 In Process (Motrin Tablet) 16:00 Code Status CODE 07/15/24 Transmitted 16:[address] 07/15/24 Resulted 15:44 Communication Order ORDERS 07/16/24 Transmitted 09:41 D5w/Sod Chl 0.45% PHA 07/16/24 In Process (D5w 1/2ns) 10:00 C-Diff: Collect Next RADHA 07/16/24 In Process Specimen 09:56 * Dietary Consult CONS 07/16/24 Transmitted 09:56 Date of Service: Jul 16, 2024 Billing Provider: JULIETA YOUNG MD Common Visit Codes: [id number] INP/OBS CARE(HIGH) JULIETA YOUNG MD Jul 16, 2024 15:07
[2024-07-16 17:13] LABS: Chloride 102 mmol/L (98-107)
[2024-07-16 17:14] LABS: Anion Gap 4 (5-15); Carbon Dioxide 29 mmol/L (20-31)
[2024-07-16 17:19] LABS: Glucose 91 mg/dL (74-106)
[2024-07-16 17:25] LABS: BUN/Creatinine Ratio 11.9 (10.0-20.0); Blood Urea Nitrogen < 5 mg/dL (9-23); Calcium 7.6 mg/dL (8.7-10.4); Potassium 3.3 mmol/L (3.5-5.1); Sodium 135 mmol/L (136-145)
[2024-07-17] VITALS (12 sets, daily range): BP systolic 131–187; BP diastolic 70–82; PULSE 75–100; RESP 12–19; TEMP 97.6–98.6; O2SAT 99–100
[2024-07-17] MEDS: METHYLNALTREXONE BROMIDE 12 MG/0.6 ML VIAL SC SCH (10:37)
[2024-07-17 11:32] LABS: Chloride 104 mmol/L (98-107)
[2024-07-17 11:33] LABS: Anion Gap 4 (5-15); Carbon Dioxide 28 mmol/L (20-31)
[2024-07-17 11:38] LABS: Glucose 102 mg/dL (74-106)
[2024-07-17 11:39] LABS: Magnesium 1.7 mg/dL (1.6-2.6)
[2024-07-17 11:42] LABS: BUN/Creatinine Ratio 11.1 (10.0-20.0); Blood Urea Nitrogen < 5 mg/dL (9-23); Calcium 7.6 mg/dL (8.7-10.4); Phosphorus 1.4 mg/dL (2.4-5.1); Sodium 136 mmol/L (136-145)
[2024-07-17] MEDS: D5W/SOD CHL 0.45% 1,000 ML IV SCH (16:51)
--- NOTE | 2024-07-17 17:22 | DVHPN2 ---
Subjective update 07/17 07/13-patient is seen in ED bed 9, complaining of epigastric/subxiphoid/left upper quadrant pain, there is some left upper quadrant tender to palpation/epigastrium tender to palpation/xiphoid tender to palpation. Bowel sounds normal, lung sounds normal. No symptoms of nausea and vomiting or diarrhea. Unclear if patient has decreased p.o. intake. Patient has ongoing diagnosis of cancer which may be advanced. Recently admitted for acute urinary retention requiring Ng which was to see and prior admitted for edema given Lasix and prior to that recently admitted for C diff with completed vancomycin p.o. oral course. Patient complains of pain and weakness and vague symptoms. Bicarb is elevated getting ABG, on admit WBC leukocytosis elevated with neutrophilia, concern for possible infection; platelets are declining 140-122. On workup is largely benign CXR normal, TSH normal, ammonia normal, troponins negative, BNP within normal limits,. There are many stable labs which has been elevated/low in the past, including: LFTs are mildly raised with ALP raised, total protein low, albumin low, calcium carotid chest below normal limit. Unclear what is the cause of pain and weakness, we will get CT abdomen to rule out any acute causes. Patient was multiple readmit for multiple different primary issues. Prognosis very poor. 07/14 - lab workup for weakness largely insignificant. CT abdomen with no acute findings but does show large stool burden consistent with high-grade constipation. Patient is feeling a little improved we will try bowel regimen and enema today. Patient was having poor p.o. tolerance likely due to constipation. We will keep patient on full liquid diet. Anticipate 1 more day to improve patient's impaction. Plan today for enema, lactulose, docusate, full liquid diet. 07/15-patient is in pain again since last night. Pain is epigastric corresponding to cancer. Are as above gastric ulcer from NSAIDs. Patient was starts becoming more lethargic and has episodes of nonresponsiveness with some concern of apnea. Patient was given a Toradol and regained some consciousness. Had a family discussion with goals of care and patient decides to be DNR DNI after confirming patient has decision-making capacity A&O times 3-4. Patient discussed with Oncology with plan to discuss hospice an upcoming appointment on Sunday07/21/2024. Given patient's worsening status over the past24 hours, discussion has had with patient's son about hospice with goal to control pain. We will give time to family to make decisions and continue to monitor patient., we will convert. DNR DNI, continue laxatives, continue pain control while avoiding IV purulence which can cause worsening respiratory depression given patient does have already episodes of hypopnea. 07/16 patient feeling improved this morning, upon the bedside. Family is giving him home cooked food which he is enjoying. Initially ready for discharge. Paged at afternoon with complaint of patient acute onset nausea and vomiting. Patient is lethargic again after emesis. Antiemetics given and family discussion had with plan to give more IV fluids clear liquid diet in small portions only and continue pain control. Likely DC tomorrow with close oncology follow up outpatient 07/17-this a.m. patient was called another code assist, he has another episode of staring into space, unresponsive but vitals stable and starts to respond again after a few seconds. Concern for absence seizures, neurology consulted pending prolactin. Patient continues to be in pain, weak, minimal p.o. tolerance. Patient does not seem to be improving and had vomited his pain was last night. Poor prognosis. Family still appears resistant to hospice. Reviewed: H&P Changes from previous H/P or p: No Changes General: Per HPI Objective Vitals Vital Signs Date Time Temp Pulse Resp B/P (MAP) Pulse Ox O2 Delivery O2 Flow Rate FiO2 07/17/24 16:51 97 14 123/80 07/17/24 13:00 98.6 99 98.6 07/17/24 08:00 Room Air* 0 21 Intake/Output Intake and Output 07/17/24 07:00 Intake Total 1356 ml Balance 1356 ml Intake Oral 706 ml IV Total 650 ml # Voids 2 # Bowel Movements 1 Exam GEN: Healthy appearing, well-developed, NAD. HEENT: NC/AT; MMM. CV: RRR, no m/r/g. LUNGS: Bibasilar rales. ABD: Tenderness epigastrium/left upper quadrant EXT: skin Warm, well perfused. no rashes. No clubbing, cyanosis, or edema. NEURO: Weakness in all extremities 3 of 5. Unclear if sensation is intact. Cranial nerves 2-12 intact. Medications Current Medications Medications Dose Ordered Sig/Polina Route Start Time Stop Time Status Last Admin Dose Admin Atorvastatin Calcium 10 mg HS PO 07/13/24 22:00 07/16/24 21:27 10 MG Piperacillin Sod/ Tazobactam Sod 100 ml @ 25 mls/hr Q8H IV 07/13/24 11:00 07/17/24 14:33 25 MLS/HR Diagnostic Test (Pha) 1 strip ACHS 07/13/24 07:00 07/17/24 14:21 1 STRIP Insulin Human Regular ACHS SC 07/13/24 07:00 Dextrose 50 ml UD PRN IV 07/13/24 03:45 Ondansetron HCl 4 mg Q4HP PRN IV 07/13/24 03:45 07/17/24 09:25 4 MG Morphine Sulfate 2 mg Q4HPRN PRN IV 07/13/24 18:15 07/17/24 16:51 2 MG Docusate Sodium 100 mg BID PO 07/14/24 22:00 07/16/24 21:27 100 MG Lactulose 30 ml TID PO 07/15/24 22:00 07/16/24 21:32 30 ML Acetaminophen 650 mg Q6HP PO 07/15/24 18:00 07/16/24 05:41 650 MG Acetaminophen/ Hydrocodone Bitart 1 tab Q4HP PRN PO 07/15/24 14:00 Ibuprofen 600 mg BID PO 07/15/24 22:00 07/16/24 21:31 600 MG Sucralfate 1 gm BID@0600,2200 PO 07/15/24 22:00 07/16/24 21:32 1 GM Famotidine 20 mg Q12HR IV 07/15/24 22:00 07/17/24 10:37 20 MG Gabapentin 300 mg TID PO 07/15/24 14:00 07/16/24 21:28 300 MG Methylnaltrexone [place] 8 mg Q2D SC 07/17/24 10:00 07/17/24 10:37 8 MG Ibuprofen 600 mg Q6HP PRN PO 07/15/24 16:00 Dextrose/Sodium Chloride 1,000 ml @ 125 mls/hr Q8H IV 07/17/24 13:45 07/17/24 23:44 07/17/24 16:51 125 MLS/HR Laboratory Results Laboratory Tests 07/14/24 04:41 07/17/24 10:48 Chemistry Test 07/17/24 10:48 Calcium Level 7.6 mg/dL (8.7-10.4) L Magnesium Level 1.7 mg/dL (1.6-2.6) Phosphorus Level 1.4 mg/dL (2.4-5.1) L Urinalysis Test 07/13/24 03:30 Urine Color Light-yellow (Yellow) Urine Clarity Clear (Clear) Urine pH 7.0 (5.0-9.0) Urine Specific [place] 1.012 (1.001-1.035) Urine Protein Trace (Negative) H Urine Ketones Negative (Negative) Urine Blood Negative /uL (Negative) Urine Nitrite Negative (Negative) Urine Bilirubin Negative (Negative) Urine Urobilinogen Normal mg/dL (Negative) Urine Leukocyte Esterase Negative /uL (Negative) Urine RBC 3 /hpf (0 - 3) Urine Microscopic WBC 4 /HPF (0-3) H Urine Squamous Epithelial Cells Few /hpf (<5) Urine Bacteria Few /hpf (None Seen) H Urine Mucus Few (None Seen) Urine Yeast (Budding) Occasional /hpf (None Urine Glucose Normal mg/dL (Normal) Microbiology Microbiology Date/Time Source Procedure Growth Status 07/13/24 04:35 Blood Blood Culture - Preliminary NO GROWTH AFTER 72 HOURS OF INCUBATION. Resulted Labs and/or images reviewed: Labs reviewed by me, Image(s) reviewed by me Assessment/Plan Assessment/Plan 07/17-this a.m. patient was called another code assist, he has another episode of staring into space, unresponsive but vitals stable and starts to respond again after a few seconds. Concern for absence seizures, neurology consulted pending prolactin. Patient continues to be in pain, weak, minimal p.o. tolerance. Patient does not seem to be improving and had vomited his pain was last night. Poor prognosis. Family still appears resistant to hospice. Poor p.o. tolerance due to Constipation and fecal impaction and advanced cancer with mets Generalized weakness , likely due to cancer but acute gastroenteritis possible Rule out acute abdomen Fatigue Neutrophilia Leukocytosis Thrombocytopenia Chronic elevated transaminitis and elevated ALP History of acute urinary retention , recurrence possible History of diarrhea and C diff, currently resolved History of anemia Diabetes Hypertension Current gastric carcinoma, currently on chemotherapy Hyperlipidemia - Patient has ongoing diagnosis of cancer which may be advanced. Recently admitted for acute urinary retention requiring Ng which was to see and prior admitted for edema given Lasix and prior to that recently admitted for C diff with completed vancomycin p.o. oral course. Patient complains of pain and weakness and vague symptoms - Bicarb is elevated getting ABG - on admit WBC leukocytosis elevated with neutrophilia, concern for possible infection - platelets are declining 140-122 - CXR normal, TSH normal, ammonia normal, troponins negative, BNP within normal limits. - 07/13 given GI cocktail x1 with some improvement - CT abdomen pelvis: Findings are suggestive of fluid overload. Moderate to large volume diffuse colonic stool. Distended stomach. - no signs of acute abdomen, SBO, bladder retention -CT head 07/15: Benign scan, no significant findings. - There are many stable labs which has been elevated/low in the past, including: LFTs are mildly raised with ALP raised, total protein low, albumin low, calcium carotid chest below normal limit. - bowel regimen with Fleet enema, lactulose, docusate - deescalate antibiotics to Unasyn. Prior on on broad-spectrum antibiotics Zosyn, cover gi source. - p.r.n. pain control - sliding scale insulin for diabetes mild, hold p.o. meds - clear liquid diet, small portion. Diet- clear liquid diet, small portions. DVT prophylaxis-Lovenox GI prophylaxis- protonix iv qday Med tele DNR DNI Plan discussed with: Patient My Orders Orders - JULIETA YOUNG MD Procedure Category Date Status Time * Neurology Consult CONS 07/17/24 Transmitted 10:43 D5w/Sod Chl 0.45% PHA 07/17/24 In Process (D5w 1/2ns) 13:45 Sodium Phosphates PHA 07/17/24 In Process 17:30 Potassium Chloride PHA 07/17/24 In Process (Potassium Chloride). 16:30 Bedside Commode RADHA 07/17/24 In Process 16:00 Date of Service: Jul 17, 2024 Billing Provider: JULIETA YOUNG MD Common Visit Codes: [id number] INP/OBS CARE(HIGH) JULIETA YOUNG MD Jul 17, 2024 17:22
[2024-07-17] MEDS: MAGNESIUM SULFATE 1GM/100ML 100 ML IV ONE (20:17)
[2024-07-17] MEDS: POTASSIUM CHLORIDE 40 MEQ, LIDOCAINE 1% (LOCAL ANESTH.) 4 ML in SODIUM CHL 0.9% 250 ML IV ONE (22:10)
--- NOTE | 2024-07-17 23:50 | DVHINCON2 ---
Date of service: Jul 17, [address] Christianne Mann Reason for Consultation Absence seizure History of Present Illness Mr. Richards is a 64 years old gentleman with a history of hypertension, diabetes, dyslipidemia, gastric adrenocarcinoma status post removal, he came to the emergency room on 07/12/2024 with a chief company of abdominal pain, general weakness. At that time, the patient was sleepy, on waking up, he is only oriented to himself, and he also reports that he had a fall by the bedside rn admissions on 07/17/2024, he was event were he was staring into space, unresponsive to his surroundings, but with stable vitals, and the patient woke up in the few seconds. On 07/15/2024, the patient had another event where he was nonresponsive briefly Urinalysis, 07/03/2024: WBC: 4, urine leukocyte esterase: Negative WBC/HB/PLT/MCV, 07/12/2024: 23/9.7/148/80.3, 07/14/2024: 4/5.5/100/80.1 HCO3, 07/12/2024: 32, 07/13/2024: 35, 07/14/2024: 33, 07/17/2024: 28 TBI/AST/ALT/AP, 07/14/2024: 0.4/76/26/140 CT head, 07/15/2024: No abnormality demonstrated. Past Medical History Hypertension, diabetes, dyslipidemia, cancer, anemia Past Surgical History Gastric adrenocarcinoma removal Family History: FHx: colon cancer G8 MOTHER (UNKNOWN MEDICAL HISTORY), , Onset:Unknown Hypertension G8 FATHER (HTN), , Onset:Unknown Family History Hypertension, cancer Social History Smoker: Non-Smoker, Quit Greater Than 1 Year Alcohol: Denies ETOH Use Drugs: Denies Drug Use Lives In: Home Allergies: Coded Allergies: Amoxicillin (Verified Allergy, Severe, 06/03/24) Home Meds Active Scripts Morphine Sulfate (Morphine Sulfate Cr) 15 Mg Tab, 1 TAB PO BID for 5 Days, #10 TAB Prov:MARISOL COOL MD 07/07/24 Furosemide (Lasix) 40 Mg Tab, 40 MG PO DAILY for 30 Days, #30 TAB Prov:MARISOL COOL MD 2/10/25 Sucralfate (Carafate) 1 Gm/10 Ml Alysha, 10 ML PO BID for 14 Days, #120 ML 1 Refill Prov:KIRAN FORDE RESIDENT 06/26/24 Pantoprazole Sodium Sesquihydr (Protonix) 40 Mg Tab, 40 MG PO BID for 14 Days, #28 TAB Prov:KIRAN FORDE RESIDENT 06/26/24 Yeast (S. Boulardii)(S. Cerevi (Probiotic) 250 Mg Cap, 250 MG PO DAILY for 14 Days, #14 CAP Prov:KIRAN FORDE RESIDENT 06/25/24 Famotidine (PEPCID TABLET) 20 Mg Tb, 1 TAB PO BID for 14 Days, #28 TAB 5 Refills Prov:KIRAN FORDE RESIDENT 06/25/24 Reported Medications Loperamide Hcl (Loperamide Hcl) 2 Mg Cap, 2 MG PO Q6HP, MG 06/20/24 Glipizide (Glipizide) 5 Mg Tab, 5 MG PO DAILY, TAB 06/20/24 Diphenoxylate W/ Atropine (Lomotil) 2.5 Mg Tab, 2.5 MG PO, TAB 06/20/24 Benazepril & Hydrochlorothiazi (Benazepril Hydrochloride/ 20-12.5 mg) 1 Tab Tab, 1 TAB PO BID, TAB 06/20/24 Prochlorperazine Maleate (Compazine) 10 Mg Tb, 1 TAB PO Q8HR, #60 TAB 3 Refills 06/20/24 Ondansetron HCl (Ondansetron) 4 Mg Tab, 8 MG SL Q8HPRN, TAB 06/20/24 Linagliptin Base (TRADJENTA) 5 Mg Tab, 1 TAB PO DAILY, #90 TAB 1 Refill 02/28/24 Atorvastatin Calcium (ATORVASTATIN CALCIUM) 10 Mg Tab, 10 MG PO HS 02/28/24 Current Medications Current Medications Medications (Trade) Dose Ordered Sig/Polina Route PRN Reason Start Time Stop Time Status Last Admin Methylnaltrexone [place] (Relistor) 8 mg Q2D SC 07/17/24 10:00 07/17/24 10:37 Dextrose/Sodium Chloride 1,000 ml @ 125 mls/hr Q8H IV 07/17/24 13:45 07/17/24 23:44 07/17/24 16:51 Review of Systems Unobtainable Vital Signs Vital Signs Date Time Temp Pulse Resp B/P (MAP) Pulse Ox O2 Delivery O2 Flow Rate FiO2 07/17/24 21:00 97.8 91 17 139/79 (99) 99 97.8 07/17/24 08:00 Room Air* 0 21 Physical Exam GENERAL EXAM: General: the patient is well developed and nourished. No acute distress. HEENT: Normocephalic, neck is supple, no carotid bruits. No mass. RESPIRATORY: Normal respiratory effort with symmetrical lung expansion. Lungs clear to auscultation. CARDIOVASCULAR: Regular rate and rhythm with no murmurs. S1, S2. ABDOMEN: Soft, nontender, normal bowel sound NEUROLOGICAL: MENTAL STATUS: Oriented to himself SPEECH, LANGUAGE, HIGHER CORTICAL FUNCTION: no aphasia or dysathria. CRANIAL NERVES: #2: Intact visual mcbride to confrontation. #3,4,6: Pupils are equal, round and reactive. EOMs full and conjugate. . #5: Facial sensation intact in all three divisions bilaterally. Mandibular strength intact. #7: Facial muscles symmetrical and strength intact. #8: Hearing grossly normal to voice. #9,10: Uvula and soft palate rise in the midline. Swallow and voice are normal. #11: Trapezius and sternomastoid strength intact bilaterally. #12: Tongue midline. No fasciculations or atrophy. SENSATION: Sensation to touch and pinprick is fine MOTOR: Normal tone in the upper and lower extremity. Normal muscle bulk. No fasciculations. No abnormal movements or posturing. He Moves a little bit REFLEXES: Deep tendon reflexes normal and symmetrical. No pathological reflexes. CEREBELLAR/COORDINATION: Deferred GAIT/STATION: deferred. Labs/Diagnostic Data Labs Test 07/17/24 22:17 07/17/24 10:48 07/14/24 04:41 07/13/24 18:28 Range/Units POC Glucose 134 H 70-106 mg/dl Sodium Level 136 136-145 mmol/L Potassium Level 3.0 L 3.5-5.1 mmol/L Chloride Level 104 98-107 mmol/L Carbon Dioxide Level 28 20-31 mmol/L Anion Gap 4 L 5-15 Blood Urea Nitrogen < 5 L 9-23 mg/dL Creatinine 0.45 L 0.700-1.30 mg/dL Glomerular Filtration Rate Calc 119 >90 mL/min BUN/Creatinine Ratio 11.1 10.0-20.0 Serum Glucose 102 74-106 mg/dL Calcium Level 7.6 L 8.7-10.4 mg/dL Phosphorus Level 1.4 L 2.4-5.1 mg/dL Magnesium Level 1.7 1.6-2.6 mg/dL Prolactin 4.81 2.1-17.7 ng/mL White Blood Count 4.0 #L 4.4-10.8 10^3/uL Red Blood Count 3.72 L 4.5-5.90 10^6/uL Hemoglobin 9.5 L 13.5-17.5 g/dL Hematocrit 29.7 L 41.0-53.0 % Mean Corpuscular Volume 80.1 80.0-100.0 fL Mean Corpuscular Hemoglobin 25.6 L 28.0-32.0 pg Mean Corpuscular Hemoglobin Concent 32.0 32.0-36.0 g/dL Red Cell Distribution Width 21.4 H 11.8-14.3 % Platelet Count 100 L 140-450 10^3/uL Mean Platelet Volume 9.0 6.9-10.8 fL Neutrophils (%) (Auto) 37.0-80.0 % Lymphocytes (%) (Auto) 10.0-50.0 % Monocytes (%) (Auto) 0.0-12.0 % Basophils (%) (Auto) 0.0-2.0 % Neutrophils # (Auto) 1.6-8.6 10 ^3/uL Lymphocytes # (Auto) 0.4-5.4 10 ^3/uL Monocytes # (Auto) 0-1.3 10 ^3/uL Differential Total Cells Counted 100.0 100 Neutrophils % (Manual) 69 37.0-80.0 Band Neutrophils % (Manual) 10 Lymphocytes % (Manual) 17 10.0-50.0 Monocytes % (Manual) 3 0-12 Eosinophils % (Manual) 1 0-7 Basophils % (Manual) 0 0.0-2.0 Metamyelocytes % (manual) 0 Myelocytes % (Manual) 0 Promyelocytes % (Manual) 0 Blast Cells % (Manual) 0 Reactive Lymphocytes 0 Platelet Estimate Decreased Anisocytosis (manual) Slight Total Bilirubin 0.4 0.2-1.0 mg/dL Aspartate Amino Transferase (AST) 76 H 13-40 U/L Alanine Aminotransferase (ALT) 26 7-40 U/L Alkaline Phosphatase 140 H 46-116 U/L Total Protein 4.7 L 5.7-8.2 g/dL Albumin 2.6 L 3.2-4.8 g/dL Blood Gas Specimen Type Arterial Blood Gas Sample Site Left radial Blood Gas Patient Temperature 37.0 Arterial Blood Date Drawn [id number] Arterial Blood pH 7.474 H 7.350-7.450 Arterial Blood Partial Pressure CO2 40.1 35.0-48.0 mmHg Arterial Blood Partial Pressure O2 63.2 L 83.0-108.0 mmHg Arterial Blood HCO3 28.8 H 21.0-28.0 mmol/L Arterial Blood Oxygen Saturation 92.1 L 94.0-98.0 % Arterial Blood Base Excess 4.8 H -2.0-3.0 mmol/L Arterial Blood Oxyhemoglobin 90.5 L 94.0-98.0 % Arterial Blood Carboxyhemoglobin 0.8 0.5-1.5 % Arterial Blood Methemoglobin 0.9 0.0-1.5 % [place] Test Yes Blood Gas Total Hemoglobin 9.90 L 13.5-17.5 g/dL Blood Gas Modality Room air FiO2 % 21.0 Test 07/13/24 13:42 07/13/24 04:26 07/13/24 03:30 07/12/24 21:00 Range/Units Ammonia 21 11-32 umol/L Thyroid Stimulating Hormone (TSH) 2.87 0.55-4.78 uIU/mL Urine Color Light-yellow Yellow Urine Clarity Clear Clear Urine pH 7.0 5.0-9.0 Urine Specific [place] 1.012 1.001-1.035 Urine Protein Trace H Negative Urine Ketones Negative Negative Urine Blood Negative Negative /uL Urine Nitrite Negative Negative Urine Bilirubin Negative Negative Urine Urobilinogen Normal Negative mg/dL Urine Leukocyte Esterase Negative Negative /uL Urine RBC 3 0 - 3 /hpf Urine Microscopic WBC 4 H 0-3 /HPF Urine Squamous Epithelial Cells Few <5 /hpf Urine Bacteria Few H None Seen /hpf Urine Mucus Few None Seen Urine Yeast (Budding) Occasional None Seen /hpf Urine Glucose Normal Normal mg/dL Troponin I High Sensitivity < 3 L </=54 ng/L Test 07/12/24 19:54 Range/Units Prothrombin Time 10.9 9.3-11.8 sec Prothrombin Time INR 1.03 0.9-1.15 Activated Partial Thromboplast Time 25.6 24.5-34.5 SEC B-Type Natriuretic Peptide 19.37 0-100 pg/mL Microbiology Date/Time Source Procedure Growth Status 07/13/24 04:35 Blood Blood Culture - Preliminary NO GROWTH AFTER 72 HOURS OF INCUBATION. Resulted Assessment Episodic events with brief nonresponsiveness Partial complex seizure ? TIAs/stroke ? Metabolic encephalopathy Advanced cancer Leukocytosis/sepsis Thrombocytopenia Plan/Recommendation Monitoring Supportive treatment Telemetry EEG MRI head IV antibiotics More recommendation per clinical course Progress: Poor This medical document was created using an electronic medical record system with [employer] computerized dictation system. Although this document has been carefully reviewed, there may still be some phonetic and typographical errors. These areas are purely typographical due to imperfections of the software programs, and do not reflect any compromise in the patient's medical care. Plan discussed with: Other BINTA FRANK MD Jul 17, 2024 23:50
[2024-07-18] VITALS (7 sets, daily range): BP systolic 117–159; BP diastolic 74–82; PULSE 78–89; RESP 16–19; TEMP 97.8–98.5; O2SAT 98–100
[2024-07-18] MEDS ORDERED: LORazepam 2MG/ML-1ML VIAL IV PRN (00:45)
[2024-07-18] MEDS: SODIUM PHOSPHATES 20 MEQ in SODIUM CHL 0.9% 100 ML IV ONE (01:50)
[2024-07-18] MEDS ORDERED: AMPICILLIN & SULBACTAM SODIUM 3 GM in SODIUM CHL 0.9% 100 ML IV SCH (10:00)
--- NOTE | 2024-07-18 12:49 | DVH ---
EXAMINATION: MRI BRAIN HEAD WO CONTRAST INDICATION: ALOC COMPARISON: None TECHNIQUE: Multiplanar, multisequence magnetic resonance imaging of the brain was performed without the use of i ntravenous contrast. FINDINGS: No evidence of acute or remote infarct. No intracranial hemorrhage. No mass effect. There is periventricular/deep white matter T2/FLAIR hyperintensity is nonspecific, but most commonly associated with chronic microvascular disease. The ventricles and sulci are normal in size for age. Clear basal cisterns. Flow voids in the major intracranial vessels are maintained. No abnormality of the orbits. Paranasal sinuses and mastoid air cells are clear. No abnormality of the visualized osseous structures and extracranial soft tissues. IMPRESSION: No acute infarct, intracranial hemorrhage, mass effect, or hydrocephalus.
--- NOTE | 2024-07-18 13:58 | DVH ---
CLINICAL INDICATION: Trauma TECHNIQUE: 3 radiographic views of the right shoulder were obtained. Comparison: None FINDINGS/IMPRESSION: There is no evidence of acute fracture or dislocation. The visualized joint space is well maintained. The alignment is anatomical. There is no radiopaque foreign body.
--- NOTE | 2024-07-18 14:11 | DVH ---
CLINICAL INDICATION: Trauma TECHNIQUE: 2 radiographic views of the right ribs and 1 view of the chest were obtained. Comparison: None FINDINGS/IMPRESSION: No displaced right rib fracture. Low lung volumes. Right chest port tip projects over the cavoatrial junction.
--- NOTE | 2024-07-18 16:49 | DVHPN2 ---
Subjective update 07/18 07/13-patient is seen in ED bed 9, complaining of epigastric/subxiphoid/left upper quadrant pain, there is some left upper quadrant tender to palpation/epigastrium tender to palpation/xiphoid tender to palpation. Bowel sounds normal, lung sounds normal. No symptoms of nausea and vomiting or diarrhea. Unclear if patient has decreased p.o. intake. Patient has ongoing diagnosis of cancer which may be advanced. Recently admitted for acute urinary retention requiring Ng which was to see and prior admitted for edema given Lasix and prior to that recently admitted for C diff with completed vancomycin p.o. oral course. Patient complains of pain and weakness and vague symptoms. Bicarb is elevated getting ABG, on admit WBC leukocytosis elevated with neutrophilia, concern for possible infection; platelets are declining 140-122. On workup is largely benign CXR normal, TSH normal, ammonia normal, troponins negative, BNP within normal limits,. There are many stable labs which has been elevated/low in the past, including: LFTs are mildly raised with ALP raised, total protein low, albumin low, calcium carotid chest below normal limit. Unclear what is the cause of pain and weakness, we will get CT abdomen to rule out any acute causes. Patient was multiple readmit for multiple different primary issues. Prognosis very poor. 07/14 - lab workup for weakness largely insignificant. CT abdomen with no acute findings but does show large stool burden consistent with high-grade constipation. Patient is feeling a little improved we will try bowel regimen and enema today. Patient was having poor p.o. tolerance likely due to constipation. We will keep patient on full liquid diet. Anticipate 1 more day to improve patient's impaction. Plan today for enema, lactulose, docusate, full liquid diet. 07/15-patient is in pain again since last night. Pain is epigastric corresponding to cancer. Are as above gastric ulcer from NSAIDs. Patient was starts becoming more lethargic and has episodes of nonresponsiveness with some concern of apnea. Patient was given a Toradol and regained some consciousness. Had a family discussion with goals of care and patient decides to be DNR DNI after confirming patient has decision-making capacity A&O times 3-4. Patient discussed with Oncology with plan to discuss hospice an upcoming appointment on Sunday07/21/2024. Given patient's worsening status over the past24 hours, discussion has had with patient's son about hospice with goal to control pain. We will give time to family to make decisions and continue to monitor patient., we will convert. DNR DNI, continue laxatives, continue pain control while avoiding IV purulence which can cause worsening respiratory depression given patient does have already episodes of hypopnea. 07/16 patient feeling improved this morning, upon the bedside. Family is giving him home cooked food which he is enjoying. Initially ready for discharge. Paged at afternoon with complaint of patient acute onset nausea and vomiting. Patient is lethargic again after emesis. Antiemetics given and family discussion had with plan to give more IV fluids clear liquid diet in small portions only and continue pain control. Likely DC tomorrow with close oncology follow up outpatient 07/17-this a.m. patient was called another code assist, he has another episode of staring into space, unresponsive but vitals stable and starts to respond again after a few seconds. Concern for absence seizures, neurology consulted pending prolactin. Patient continues to be in pain, weak, minimal p.o. tolerance. Patient does not seem to be improving and had vomited his pain was last night. Poor prognosis. Family still appears resistant to hospice. 07/18 - more awake alert. tolerating po. informed to intake small, freq amounts. neurology onboard wants to r/o absence seizures. EEG today. Reviewed: H&P Changes from previous H/P or p: No Changes General: Per HPI Objective Vitals Vital Signs Date Time Temp Pulse Resp B/P (MAP) Pulse Ox O2 Delivery O2 Flow Rate FiO2 07/18/24 12:38 97.8 78 16 127/74 (91) 98 97.8 07/18/24 08:00 Room Air* 0 21 Intake/Output Intake and Output 07/18/24 07:00 Intake Total 1850 ml Balance 1850 ml Intake Oral 500 ml IV Total 1350 ml # Voids 5 # Bowel Movements 5 Exam GEN: Healthy appearing, well-developed, NAD. HEENT: NC/AT; MMM. CV: RRR, no m/r/g. LUNGS: Bibasilar rales. ABD: Tenderness epigastrium/left upper quadrant EXT: skin Warm, well perfused. no rashes. No clubbing, cyanosis, or edema. NEURO: Weakness in all extremities 3 of 5. Unclear if sensation is intact. Cranial nerves 2-12 intact. Medications Current Medications Medications Dose Ordered Sig/Polina Route Start Time Stop Time Status Last Admin Dose Admin Atorvastatin Calcium 10 mg HS PO 07/13/24 22:00 07/17/24 22:07 10 MG Diagnostic Test (Pha) 1 strip ACHS 07/13/24 07:00 07/18/24 11:33 1 STRIP Insulin Human Regular ACHS SC 07/13/24 07:00 Dextrose 50 ml UD PRN IV 07/13/24 03:45 Ondansetron HCl 4 mg Q4HP PRN IV 07/13/24 03:45 07/17/24 09:25 4 MG Morphine Sulfate 2 mg Q4HPRN PRN IV 07/13/24 18:15 07/17/24 16:51 2 MG Docusate Sodium 100 mg BID PO 07/14/24 22:00 07/18/24 10:00 100 MG Acetaminophen 650 mg Q6HP PO 07/15/24 18:00 07/18/24 13:27 650 MG Acetaminophen/ Hydrocodone Bitart 1 tab Q4HP PRN PO 07/15/24 14:00 Hold Ibuprofen 600 mg BID PO 07/15/24 22:00 07/18/24 10:00 600 MG Sucralfate 1 gm BID@0600,2200 PO 07/15/24 22:00 07/18/24 05:30 1 GM Famotidine 20 mg Q12HR IV 07/15/24 22:00 07/18/24 10:00 20 MG Gabapentin 300 mg TID PO 07/15/24 14:00 07/18/24 15:03 300 MG Ibuprofen 600 mg Q6HP PRN PO 07/15/24 16:00 Lorazepam 1 mg ONCE PRN IV 07/18/24 00:45 Polyethylene Glycol 17 gm DAILY PO 07/19/24 10:00 Laboratory Results Laboratory Tests 07/14/24 04:41 07/17/24 10:48 Urinalysis Test 07/13/24 03:30 Urine Color Light-yellow (Yellow) Urine Clarity Clear (Clear) Urine pH 7.0 (5.0-9.0) Urine Specific [place] 1.012 (1.001-1.035) Urine Protein Trace (Negative) H Urine Ketones Negative (Negative) Urine Blood Negative /uL (Negative) Urine Nitrite Negative (Negative) Urine Bilirubin Negative (Negative) Urine Urobilinogen Normal mg/dL (Negative) Urine Leukocyte Esterase Negative /uL (Negative) Urine RBC 3 /hpf (0 - 3) Urine Microscopic WBC 4 /HPF (0-3) H Urine Squamous Epithelial Cells Few /hpf (<5) Urine Bacteria Few /hpf (None Seen) H Urine Mucus Few (None Seen) Urine Yeast (Budding) Occasional /hpf (None Urine Glucose Normal mg/dL (Normal) Microbiology Microbiology Date/Time Source Procedure Growth Status 07/13/24 04:35 Blood Blood Culture - Final NO GROWTH AFTER 5 DAYS OF INCUBATION. Complete Labs and/or images reviewed: Labs reviewed by me, Image(s) reviewed by me Assessment/Plan Assessment/Plan 07/18 - more awake alert. tolerating po. informed to intake small, freq amounts. neurology onboard wants to r/o absence seizures. EEG today. can d/c over weekend if seizures ruled-out and tolerating po, able to transfer bed to chair. Poor p.o. tolerance due to Constipation and fecal impaction and advanced cancer with mets Generalized weakness , likely due to cancer but acute gastroenteritis possible seizure rule-out, absence seizure concern Rule out acute abdomen Fatigue Neutrophilia Leukocytosis Thrombocytopenia Chronic elevated transaminitis and elevated ALP History of acute urinary retention , recurrence possible History of diarrhea and C diff, currently resolved History of anemia Diabetes Hypertension Current gastric carcinoma, currently on chemotherapy Hyperlipidemia - Patient has ongoing diagnosis of cancer which may be advanced. Recently admitted for acute urinary retention requiring Ng which was to see and prior admitted for edema given Lasix and prior to that recently admitted for C diff with completed vancomycin p.o. oral course. Patient complains of pain and weakness and vague symptoms - Bicarb is elevated getting ABG - on admit WBC leukocytosis elevated with neutrophilia, concern for possible infection - platelets are declining 140-122 - CXR normal, TSH normal, ammonia normal, troponins negative, BNP within normal limits. - 07/13 given GI cocktail x1 with some improvement - CT abdomen pelvis: Findings are suggestive of fluid overload. Moderate to large volume diffuse colonic stool. Distended stomach. - no signs of acute abdomen, SBO, bladder retention -CT head 07/15: Benign scan, no significant findings. - MRI brain 07/18 - negative for any acute process - There are many stable labs which has been elevated/low in the past, including: LFTs are mildly raised with ALP raised, total protein low, albumin low, calcium carotid chest below normal limit. - bowel regimen with miralax, docusate - stop antibiotic. Prior on on broad-spectrum antibiotics Zosyn, cover gi source. - p.r.n. pain control - sliding scale insulin for diabetes mild, hold p.o. meds - clear liquid diet, small portion. - neurology EEG today, r/o seizures. Diet- clear liquid diet, small portions. DVT prophylaxis-Lovenox GI prophylaxis- protonix iv qday Med tele DNR DNI Plan discussed with: Other My Orders Orders - JULIETA YOUNG MD Procedure Category Date Status Time R Shoulder 2+ View XY 07/18/24 Resulted Xray 13:04 R Rib Xray XY 07/18/24 Resulted 13:04 Polyethylene Glycol PHA 07/19/24 In Process 17g Powder (Miralax 10:00 Date of Service: Jul 18, 2024 Billing Provider: JULIETA YOUNG MD Common Visit Codes: [id number] INP/OBS CARE(HIGH) JULIETA YOUNG MD Jul 18, 2024 16:49
[2024-07-18] MEDS: POLYETHYLENE GLYCOL 17 GM PWDR PO ONE (18:04)
[2024-07-18] MEDS: IBUPROFEN 600 MG TAB PO PRN (20:28)
--- NOTE | 2024-07-18 20:34 | DVHPN2 ---
Progress Note - Dictate Date Seen: Jul 18, 2024 Medical Necessity Reason Pt with a Central, PICC or Fol: No Subjective Mr. Richards is a 64 years old gentleman with a history of hypertension, diabetes, dyslipidemia, gastric adrenocarcinoma status post removal, he came to the emergency room on 07/12/2024 with a chief company of abdominal pain, general weakness. I have seen and examined the patient, I have talked to his nurse, , son are in the room. His son provided the following history He was reports the patient was has had progressive general weakness five while, and he has been using a walker for about one month because of imbalance (no patient was back and lower extremities), because of worsening of general weakness, he was brought to the hospital. His son claimed the patient was mentally normal before he came to the hospital altered mental status change was after he came to the hospital. He was no history of stroke, seizure He had anxiety before he came to the hospital On physical examination, the patient was reports tired/fatigued, he was oriented to person only, but with reasonable social skills Urinalysis, 07/03/2024: WBC: 4, urine leukocyte esterase: Negative WBC/HB/PLT/MCV, 07/12/2024: 23/9.7/148/80.3, 07/14/2024: 4/5.5/100/80.1 HCO3, 07/12/2024: 32, 07/13/2024: 35, 07/14/2024: 33, 07/17/2024: 28 TBI/AST/ALT/AP, 07/14/2024: 0.4/76/26/140 CT head, 07/15/2024: No abnormality demonstrated MRI head, 07/18/2024: No acute infarct, intracranial hemorrhage, mass effect, or hydrocephalus vital signs Vital Sign Date Time Temp Pulse Resp B/P (MAP) Pulse Ox O2 Delivery O2 Flow Rate FiO2 07/18/24 16:15 98.1 89 18 132/78 (96) 98 98.1 07/18/24 08:00 Room Air* 0 21 Total Intake and Output 07/17/24 07/17/24 07/18/24 15:00 23:00 07:00 Intake Total 1450 ml 400 ml Balance 1450 ml 400 ml medications Current Medications Medications Dose Ordered Sig/Polina Route Start Time Stop Time Status Last Admin Dose Admin Atorvastatin Calcium 10 mg HS PO 07/13/24 22:00 07/17/24 22:07 10 MG Diagnostic Test (Pha) 1 strip ACHS 07/13/24 07:00 07/18/24 17:19 1 STRIP Insulin Human Regular ACHS SC 07/13/24 07:00 Dextrose 50 ml UD PRN IV 07/13/24 03:45 Ondansetron HCl 4 mg Q4HP PRN IV 07/13/24 03:45 07/17/24 09:25 4 MG Morphine Sulfate 2 mg Q4HPRN PRN IV 07/13/24 18:15 07/17/24 16:51 2 MG Docusate Sodium 100 mg BID PO 07/14/24 22:00 07/18/24 10:00 100 MG Acetaminophen 650 mg Q6HP PO 07/15/24 18:00 07/18/24 18:03 650 MG Acetaminophen/ Hydrocodone Bitart 1 tab Q4HP PRN PO 07/15/24 14:00 Hold Ibuprofen 600 mg BID PO 07/15/24 22:00 07/18/24 10:00 600 MG Sucralfate 1 gm BID@0600,2200 PO 07/15/24 22:00 07/18/24 05:30 1 GM Famotidine 20 mg Q12HR IV 07/15/24 22:00 07/18/24 10:00 20 MG Gabapentin 300 mg TID PO 07/15/24 14:00 07/18/24 15:03 300 MG Ibuprofen 600 mg Q6HP PRN PO 07/15/24 16:00 Lorazepam 1 mg ONCE PRN IV 07/18/24 00:45 Polyethylene Glycol 17 gm DAILY PO 07/19/24 10:00 objective General: the patient is well developed and nourished. No acute distress. MENTAL STATUS: Oriented to himself SPEECH, LANGUAGE, HIGHER CORTICAL FUNCTION: no aphasia or dysathria. CRANIAL NERVES: Pupils are equal, round and reactive. EOMs full and conjugate. Facial sensation intact in all three divisions bilaterally. Mandibular strength intact. Facial muscles symmetrical and strength intact. SENSATION: Sensation to touch and pinprick is fine MOTOR: Normal tone in the upper and lower extremity. Normal muscle bulk. No fasciculations. No abnormal movements or posturing. He moves the arms REFLEXES: Deep tendon reflexes normal and symmetrical. No pathological reflexes. CEREBELLAR/COORDINATION: Deferred GAIT/STATION: deferred. laboratory and microbiology Laboratory Tests 07/17/24 10:48 07/14/24 04:41 Test 07/17/24 10:48 Range/Units Serum Glucose 102 74-106 mg/dL Problem List Episodic events with brief nonresponsiveness Partial complex seizure ? TIAs/stroke ? Metabolic encephalopathy Advanced cancer Leukocytosis/sepsis Thrombocytopenia General weakness, multifactorial Assessment/Plan Monitoring Supportive treatment Telemetry EEG IV antibiotics More recommendation per clinical course This medical document was created using an electronic medical record system with [employer] dictation system. Although this document has been carefully reviewed, there may still be some phonetic and typographical errors. These areas are purely typographical due to imperfections of the software programs, and do not reflect any compromise in the patient's medical care Prognosis poor Dietary Evaluation Review Comments: Encourage PO feedings to meet at least 75 of his needs. Supplement with Ensure Hgh Protein PO BID if pt receptive. Expected Outcomes/Goals: sustainable wt, improved appetite. Plan discussed with: Spouse, Son, Other Total Time (mins): 40 BINTA FRANK MD Jul 18, 2024 20:34
--- NOTE | 2024-07-18 22:50 | DVHEEG2 ---
Neurology EEG Procedural Note Procedural Note EXAM DATE: 07/18/2024 REFERRING DOCTOR: Dr. Frank TECHNIQUE: Eighteen channels of EEG, 2 channels of EOG, and 1 channel of EKG were recorded using the [employer] 10/20 system. CLINICAL DATA: The patient was referred for an EEG evaluation for the evidence of seizure disorder. MEDICATIONS: Seizure chart BACKGROUND ACTIVITY: He sleeps through the recording, during brief arousals,, the background activity consisted of fairly regulated 8-9Hz rhythmic waveforms, symmetrically distributed over both posterior quadrants and was reactive to external stimuli ACTIVATION: Hyperventilation: Not done Photic Stimulation: Not done Sleep: Stage I and II IMPRESSION: This is a normal EEG. No focal, lateralized, or epileptiform features are noted. If clinically indicated to rule out a seizure disorder, recommend repeat EEG with sleep deprivation. The EKG channel showed a regular heart rate of 90 per minute. [place] [address] BINTA FRANK MD Jul 18, 2024 22:50
[2024-07-18] MEDS: D5W/SOD CHL 0.45% 1,000 ML IV ONE (23:29)
[2024-07-19] VITALS (8 sets, daily range): BP systolic 125–136; BP diastolic 73–79; PULSE 82–97; RESP 16–20; TEMP 97.8–98.3; O2SAT 97–100
[2024-07-19] MEDS: POLYETHYLENE GLYCOL 17 GM PWDR PO SCH (10:00)
[2024-07-19] MEDS: Glucerna Carbsteady SHAKE Chocolate 8oz PO SCH (18:00)
--- NOTE | 2024-07-19 20:44 | DVHPN2 ---
Subjective feels better than admission/still weak Reviewed: H&P Changes from previous H/P or p: No Changes General: Per HPI Objective Vitals Vital Signs Date Time Temp Pulse Resp B/P (MAP) Pulse Ox O2 Delivery O2 Flow Rate FiO2 07/19/24 16:15 98.3 93 17 132/78 (96) 98 98.3 07/19/24 08:00 Room Air* 0 21 Intake/Output Intake and Output 07/19/24 07:00 Intake Total 650 ml Balance 650 ml IV Total 650 ml General Appearance: Alert, Oriented X3, Cooperative, No acute distress Lungs: Clear to auscultation Cardiovascular: Regular rate, Normal S1, Normal S2 Abdomen: Normal bowel sounds, Soft, No tenderness Musculoskeletal: Normal sensory function, Normal motor function Neuro: Normal speech, Strength at 5/5 X4 ext, Sensation intact Psych/Mental Status: Mental status NL Medications Current Medications Medications Dose Ordered Sig/Polina Route Start Time Stop Time Status Last Admin Dose Admin Atorvastatin Calcium 10 mg HS PO 07/13/24 22:00 07/18/24 23:25 10 MG Acetaminophen 650 mg Q6HP PO 07/15/24 18:00 07/18/24 18:03 650 MG Sucralfate 1 gm BID@0600,2200 PO 07/15/24 22:00 07/19/24 06:17 1 GM Gabapentin 300 mg TID PO 07/15/24 14:00 07/19/24 12:22 300 MG Lorazepam 1 mg ONCE PRN IV 07/18/24 00:45 Enteral Nutritional Formula 240 ml BIDWM PO 07/19/24 18:00 Laboratory Results Laboratory Tests 07/14/24 04:41 07/17/24 10:48 07/19/24 18:54 Urinalysis Test 07/13/24 03:30 Urine Color Light-yellow (Yellow) Urine Clarity Clear (Clear) Urine pH 7.0 (5.0-9.0) Urine Specific [place] 1.012 (1.001-1.035) Urine Protein Trace (Negative) H Urine Ketones Negative (Negative) Urine Blood Negative /uL (Negative) Urine Nitrite Negative (Negative) Urine Bilirubin Negative (Negative) Urine Urobilinogen Normal mg/dL (Negative) Urine Leukocyte Esterase Negative /uL (Negative) Urine RBC 3 /hpf (0 - 3) Urine Microscopic WBC 4 /HPF (0-3) H Urine Squamous Epithelial Cells Few /hpf (<5) Urine Bacteria Few /hpf (None Seen) H Urine Mucus Few (None Seen) Urine Yeast (Budding) Occasional /hpf (None Urine Glucose Normal mg/dL (Normal) Microbiology Microbiology Date/Time Source Procedure Growth Status 07/13/24 04:35 Blood Blood Culture - Final NO GROWTH AFTER 5 DAYS OF INCUBATION. Complete Assessment/Plan Assessment/Plan generalized weakness- from chemo/dehydration better gastric cancer on chemo/son states recent oncology provider rec hospice but he wants to d/w dr.nanda marcelino constipation treat thrombocytopenia-/mild pancytopenia- monitor//?from recent chemo dm stable htn stable dvt prophylaxis debility Plan discussed with: Patient, Son My Orders Orders - HAFSA ELIZABETH MD Procedure Category Date Status Time Complete Blood Count LAB 07/20/24 Verified 04:00 Date of Service: Jul 19, 2024 Billing Provider: HAFSA ELIZABETH MD Common Visit Codes: [id number] INP/OBS CARE(MOD) HAFSA ELIZABETH MD Jul 19, 2024 20:44
[2024-07-19] MEDS: ENOXAPARIN SOD 30 MG/0.3 ML SYRINGE SC ONE (20:45)
[2024-07-19] MEDS: POTASSIUM CHLORIDE 8 MEQ TAB PO ONE (21:36)
[2024-07-20] VITALS (9 sets, daily range): BP systolic 126–158; BP diastolic 74–80; PULSE 86–97; RESP 14–18; TEMP 97.8–98.7; O2SAT 97–100
[2024-07-20] MEDS: ACETAMINOPHEN 325 MG TAB PO PRN (03:45)
[2024-07-20 04:13] LABS: Hematocrit 31.4 % (41.0-53.0); Mean Corpuscular Hemoglobin 24.9 pg (28.0-32.0); White Blood Cell 15.9 10^3/uL (4.4-10.8)
[2024-07-20 04:16] LABS: Mean Corpuscular Hgb Conc. 31.7 g/dL (32.0-36.0); Mean Corpuscular Volume 78.6 fL (80.0-100.0); Platelet Count (auto) 177 10^3/uL (140-450); Red Cell Distribution Width 21.2 % (11.8-14.3)
[2024-07-20 04:36] LABS: Alanine Aminotransferase 14 U/L (7-40); Anion Gap 6 (5-15); Aspartate Aminotransferase 34 U/L (13-40); BUN/Creatinine Ratio 18.5 (10.0-20.0); Blood Urea Nitrogen 10 mg/dL (9-23); Carbon Dioxide 27 mmol/L (20-31); Chloride 103 mmol/L (98-107); Glucose 77 mg/dL (74-106)
[2024-07-20 04:37] LABS: Bilirubin, Total 0.3 mg/dL (0.2-1.0)
[2024-07-20 04:41] LABS: Basophils % (manual) 0 (0.0-2.0); Blast Cells 0; Eosinophils % (manual) 0 (0-7); Metamyelocytes % 0; Myelocytes % 0; Promyelocytes % 0; Reactive Lymphocytes 0
[2024-07-20 04:47] LABS: Albumin 2.4 g/dL (3.2-4.8); Alkaline Phosphatase 127 U/L (46-116); Calcium 7.8 mg/dL (8.7-10.4); Potassium 3.4 mmol/L (3.5-5.1); Sodium 136 mmol/L (136-145); Total Protein 4.3 g/dL (5.7-8.2)
[2024-07-20 06:45] LABS: Band Neutrophils % (manual) 17; Lymphocytes % (manual) 22 (10.0-50.0); Monocytes % (manual) 6 (0-12); Platelet Estimate Adequate
[2024-07-20 06:46] LABS: Anisocytosis Slight; Hypochromia Slight
[2024-07-20] MEDS: FLUoxetine HCL 10 MG CAP PO ONE (13:59)
[2024-07-20] MEDS: metroNIDAZOLE 500 MG TAB PO SCH (14:49)
--- NOTE | 2024-07-20 15:59 | PRN ---
Misceleneous Note Note Note July 20, 2024 Reason for Consultation 1. Gastric cancer 2. C difficile colitis 3. GI bleed History of Present Illness History of Present Illness The patient is a 63-year-old male with a history of gastric cancer currently on chemotherapy, hypertension, diabetes, history of C difficile colitis, multiple recent admissions, for GI bleed, weakness, anemia, and c difficile symptoms. GI consulted for suspected GI bleed. Patient complains of weakness, abdominal pain, and dark loose stools. Past Medical History Past Medical History As above Gastric cancer diagnosed in 2023 status post three cycles chemotherapy Diabetes Hypertension Hyperlipidemia C difficile colitis Past Surgical History Past Surgical History Noncontributory Family & Social History Family History: FHx: colon cancer G8 MOTHER (UNKNOWN MEDICAL HISTORY), Hypertension G8 FATHER (HTN), Family History Family history of colon cancer Social History Prior tobacco no significant alcohol or recreational drug use Review of Systems See chart for full review of systems Gastric cancer Anemia No dizziness or seizure No chest pain or palpitations No shortness of breath No cough or wheeze no dysuria hematuria no history of kidney stones No arthralgias or myalgias Petechial rash No depression anxiety or psychosis Current Medications Medications (Trade) Dose Ordered Sig/Polina Route PRN Reason Start Time Stop Time Status Last Admin Acetaminophen (Tylenol Tablet) 650 mg Q6HP PRN PO PAIN SCALE 4-6 OR TEMP>100.4 07/19/24 23:15 07/20/24 03:45 Enteral Nutritional Formula (Glucerna Carbsteady SHAKE) 240 ml BIDWM PO 07/19/24 18:00 07/20/24 08:00 Fluoxetine HCl (PROzac CAPSULE) 10 mg DAILY PO 07/21/24 10:00 Metronidazole (Flagyl Tablet) 500 mg Q8HR PO 07/20/24 14:00 07/20/24 14:49 Vital Signs Date Time Temp Pulse Resp B/P (MAP) Pulse Ox O2 Delivery O2 Flow Rate FiO2 07/20/24 13:00 97.8 87 17 140/77 (98) 97 97.8 07/20/24 07:31 Room Air* 0 21 Physical Exam General: Alert and oriented x4 HEENT: Normocephalic atraumatic extraocular movements are intact pupils equal round react light accommodating Regular rate and rhythm Soft mild tenderness to palpation Extremity no clubbing cyanosis or edema Neurologically moves all four extremities no asterixis Laboratory Tests Test 07/18/24 17:00 07/18/24 23:26 07/19/24 06:19 07/19/24 11:39 Range/Units POC Glucose 80 80 86 99 70-106 mg/dl Test 07/19/24 16:10 07/19/24 18:54 07/19/24 21:27 07/19/24 21:37 Range/Units POC Glucose 82 85 70-106 mg/dl Potassium Level 3.4 L 3.5-5.1 mmol/L Stool Occult Blood Positive Negative Stool Occult Blood Sample #3 Negative Test 07/20/24 03:44 07/20/24 12:52 Range/Units White Blood Count 15.9 #H 4.4-10.8 10^3/uL Red Blood Count 4.00 L 4.5-5.90 10^6/uL Hemoglobin 10.0 L 13.5-17.5 g/dL Hematocrit 31.4 L 41.0-53.0 % Mean Corpuscular Volume 78.6 L 80.0-100.0 fL Mean Corpuscular Hemoglobin 24.9 L 28.0-32.0 pg Mean Corpuscular Hemoglobin Concent 31.7 L 32.0-36.0 g/dL Red Cell Distribution Width 21.2 H 11.8-14.3 % Platelet Count 177 # 140-450 10^3/uL Mean Platelet Volume 6.9 6.9-10.8 fL Neutrophils (%) (Auto) 37.0-80.0 % Lymphocytes (%) (Auto) 10.0-50.0 % Monocytes (%) (Auto) 0.0-12.0 % Basophils (%) (Auto) 0.0-2.0 % Neutrophils # (Auto) 1.6-8.6 10 ^3/uL Lymphocytes # (Auto) 0.4-5.4 10 ^3/uL Monocytes # (Auto) 0-1.3 10 ^3/uL Differential Total Cells Counted 100.0 100 Neutrophils % (Manual) 55 37.0-80.0 Band Neutrophils % (Manual) 17 Lymphocytes % (Manual) 22 10.0-50.0 Monocytes % (Manual) 6 0-12 Eosinophils % (Manual) 0 0-7 Basophils % (Manual) 0 0.0-2.0 Metamyelocytes % (manual) 0 Myelocytes % (Manual) 0 Promyelocytes % (Manual) 0 Blast Cells % (Manual) 0 Reactive Lymphocytes 0 Platelet Estimate Adequate Hypochromasia (manual) Slight Anisocytosis (manual) Slight Microcytosis Slight Sodium Level 136 136-145 mmol/L Potassium Level 3.4 L 3.5-5.1 mmol/L Chloride Level 103 98-107 mmol/L Carbon Dioxide Level 27 20-31 mmol/L Anion Gap 6 5-15 Blood Urea Nitrogen 10 9-23 mg/dL Creatinine 0.54 L 0.700-1.30 mg/dL Glomerular Filtration Rate Calc 113 >90 mL/min BUN/Creatinine Ratio 18.5 10.0-20.0 Serum Glucose 77 74-106 mg/dL Calcium Level 7.8 L 8.7-10.4 mg/dL Total Bilirubin 0.3 0.2-1.0 mg/dL Aspartate Amino Transferase (AST) 34 13-40 U/L Alanine Aminotransferase (ALT) 14 7-40 U/L Alkaline Phosphatase 127 H 46-116 U/L Total Protein 4.3 L 5.7-8.2 g/dL Albumin 2.4 L 3.2-4.8 g/dL POC Glucose 71 70-106 mg/dl 1. Gastric cancer 2. C difficile colitis 3. Blood in the stool 4. Anemia 5. Leukocytosis Recommendations: 1. Follow H&H and transfuse 2. Continue with the metronidazole, consider Dificid for refractory C diff versus prolonged taper course of vancomycin 3. ID consultation 4. No indication for EGD colonoscopy 5. We will follow TIARA MONTGOMERY MD Jul 20, 2024 15:58
--- NOTE | 2024-07-20 17:00 | DVH ---
EXAM: XY CHEST PORTABLE TECHNIQUE: Single frontal chest radiograph CLINICAL HISTORY: leucocytosis COMPARISON: XY CHEST PORTABLE on DOS: 07/12/24, XY CHEST XRAY 1 VIEW on DOS: 06/29/24, XY CHEST XRAY 1 V IEW on DOS: 06/27/24 Findings/Impression: Frontal chest radiograph demonstrates no acute osseous or superficial soft tissue abnormalities. Right IJ catheter terminates in the right atrium. The trachea is midline. The cardiac silhouette and mediastinum are within normal limits. No pneumothorax, pleural effusions, or consolidations.
--- NOTE | 2024-07-20 18:59 | DVHPN2 ---
Subjective 1000 am-had episode of staring/but did answer sons questions/then woke up and stated he does want to continue his chemo walks to commode//but declined to lift his leg on command Reviewed: H&P Changes from previous H/P or p: No Changes General: Per HPI Objective Vitals Vital Signs Date Time Temp Pulse Resp B/P (MAP) Pulse Ox O2 Delivery O2 Flow Rate FiO2 07/20/24 17:00 98.1 97 15 136/78 (97) 97 98.1 07/20/24 07:31 Room Air* 0 21 Intake/Output Intake and Output 07/20/24 07:00 Intake Total 1350 ml Balance 1350 ml Intake Oral 1150 ml IV Total 200 ml # Voids 6 # Bowel Movements 6 General Appearance: Alert, Oriented X3, Cooperative, No acute distress, Other (stares and goes into blank periodically//but comes back clera and answers questions) Lungs: Clear to auscultation Cardiovascular: Regular rate, Normal S1, Normal S2 Abdomen: Normal bowel sounds, Soft, No tenderness Musculoskeletal: Normal sensory function, Normal motor function, Other (walks to commode//but declined to lift his legs states feels weak) Neuro: Normal speech, Strength at 5/5 X4 ext, Sensation intact Psych/Mental Status: Mental status NL Medications Current Medications Medications Dose Ordered Sig/Polina Route Start Time Stop Time Status Last Admin Dose Admin Atorvastatin Calcium 10 mg HS PO 07/13/24 22:00 07/19/24 21:37 10 MG Sucralfate 1 gm BID@0600,2200 PO 07/15/24 22:00 07/20/24 06:18 1 GM Gabapentin 300 mg TID PO 07/15/24 14:00 07/20/24 13:59 300 MG Lorazepam 1 mg ONCE PRN IV 07/18/24 00:45 Enteral Nutritional Formula 240 ml BIDWM PO 07/19/24 18:00 07/20/24 08:00 240 ML Acetaminophen 650 mg Q6HP PRN PO 07/19/24 23:15 07/20/24 17:38 650 MG Metronidazole 500 mg Q8HR PO 07/20/24 14:00 07/20/24 14:49 500 MG Fluoxetine HCl 10 mg DAILY PO 07/21/24 10:00 Laboratory Results Laboratory Tests 07/20/24 03:44 Chemistry Test 07/20/24 03:44 Albumin 2.4 g/dL (3.2-4.8) L Calcium Level 7.8 mg/dL (8.7-10.4) L Total Protein 4.3 g/dL (5.7-8.2) L LFT Test 07/20/24 03:44 Alanine Aminotransferase (ALT) 14 U/L (7-40) Alkaline Phosphatase 127 U/L (46-116) H Aspartate Amino Transferase (AST) 34 U/L (13-40) Total Bilirubin 0.3 mg/dL (0.2-1.0) Urinalysis Test 07/13/24 03:30 Urine Color Light-yellow (Yellow) Urine Clarity Clear (Clear) Urine pH 7.0 (5.0-9.0) Urine Specific [place] 1.012 (1.001-1.035) Urine Protein Trace (Negative) H Urine Ketones Negative (Negative) Urine Blood Negative /uL (Negative) Urine Nitrite Negative (Negative) Urine Bilirubin Negative (Negative) Urine Urobilinogen Normal mg/dL (Negative) Urine Leukocyte Esterase Negative /uL (Negative) Urine RBC 3 /hpf (0 - 3) Urine Microscopic WBC 4 /HPF (0-3) H Urine Squamous Epithelial Cells Few /hpf (<5) Urine Bacteria Few /hpf (None Seen) H Urine Mucus Few (None Seen) Urine Yeast (Budding) Occasional /hpf (None Urine Glucose Normal mg/dL (Normal) Microbiology Microbiology Date/Time Source Procedure Growth Status 07/13/24 04:35 Blood Blood Culture - Final NO GROWTH AFTER 5 DAYS OF INCUBATION. Complete Labs and/or images reviewed: Labs reviewed by me, Image(s) reviewed by me Assessment/Plan Assessment/Plan generalized weakness- from chemo/dehydration better stares/unresponsiveness episodes- seen by neurology/mri is normal and eeg is normal/ is following/add ssri for depression/work up including stool for c,diff ordered gastric cancer on chemo/son states recent oncology provider rec hospice but he wants to d/w first-called he will be here in the morning/family states they just had pet ct- they are not aware of results constipation resolved- had loose stools yesterday- resolving now- if has loose stool again will send sample for c,diff thrombocytopenia-/mild pancytopenia- monitor//?from recent chemo dm stable//is drinking his supplements/advised nursing/ family to encourage po htn stable dvt prophylaxis debility overall prognosis guarded Plan discussed with: Patient, Spouse, Son, Other My Orders Orders - HAFSA ELIZABETH MD Procedure Category Date Status Time Sequential RADHA 07/19/24 In Process Compression Device 20:39 Chest Portable XY 07/20/24 Resulted 12:41 Urine Bacterial MARANDA 07/20/24 In Process Culture 14:15 Blood Culture MARANDA 07/20/24 In Process 13:52 Metronidazole Tablet PHA 07/20/24 In Process (Flagyl Tablet) 14:00 * Hematology/Oncology CONS 07/20/24 Transmitted Consult 12:41 Fluoxetine Capsule PHA 07/21/24 In Process (Prozac Capsule) 10:00 Accucheck BD 07/20/24 Transmitted 12:53 Date of Service: Jul 20, 2024 Billing Provider: HAFSA ELIZABETH MD Common Visit Codes: [id number] INP/OBS CARE(HIGH) HAFSA ELIZABETH MD Jul 20, 2024 18:59
[2024-07-20] MEDS: D5W/SOD CHLO 0.9% 1,000 ML IV SCH (20:30)
[2024-07-20] MEDS: cefTRIAXone 1GM/50ML D5W 50 ML IV ONE (20:30)
[2024-07-20] MEDS: ENOXAPARIN SOD 30 MG/0.3 ML SYRINGE SC ONE (20:31)
--- NOTE | 2024-07-20 23:00 | DVHPN2 ---
Progress Note - Dictate Date Seen: Jul 20, 2024 Medical Necessity Reason Pt with a Central, PICC or Fol: No Subjective Mr. Richards is a 64 years old gentleman with a history of hypertension, diabetes, dyslipidemia, gastric adrenocarcinoma status post removal, he came to the emergency room on 07/12/2024 with a chief company of abdominal pain, general weakness. I have seen and examined the patient, I have talked to his nurse, he was awake, oriented to person, place, he knows year and the month, socially appropriate He reports ongoing abdominal pain Urinalysis, 07/03/2024: WBC: 4, urine leukocyte esterase: Negative WBC/HB/PLT/MCV, 07/12/2024: 23/9.7/148/80.3, 07/14/2024: 4/5.5/100/80.1 HCO3, 07/12/2024: 32, 07/13/2024: 35, 07/14/2024: 33, 07/17/2024: 28 TBI/AST/ALT/AP, 07/14/2024: 0.4/76/26/140 EEG 07/18/2024: Normal CT head, 07/15/2024: No abnormality demonstrated MRI head, 07/18/2024: No acute infarct, intracranial hemorrhage, mass effect, or hydrocephalus vital signs Vital Sign Date Time Temp Pulse Resp B/P (MAP) Pulse Ox O2 Delivery O2 Flow Rate FiO2 07/20/24 20:00 96 14 Room Air* 0 21 07/20/24 17:00 98.1 136/78 (97) 97 98.1 Total Intake and Output 07/19/24 07/19/24 07/20/24 15:00 23:00 07:00 Intake Total 1350 ml Balance 1350 ml medications Current Medications Medications Dose Ordered Sig/Polina Route Start Time Stop Time Status Last Admin Dose Admin Sucralfate 1 gm BID@0600,2200 PO 07/15/24 22:00 07/20/24 21:07 1 GM Gabapentin 300 mg TID PO 07/15/24 14:00 07/20/24 21:07 300 MG Lorazepam 1 mg ONCE PRN IV 07/18/24 00:45 Enteral Nutritional Formula 240 ml BIDWM PO 07/19/24 18:00 07/20/24 18:00 240 ML Acetaminophen 650 mg Q6HP PRN PO 07/19/24 23:15 07/20/24 17:38 650 MG Metronidazole 500 mg Q8HR PO 07/20/24 14:00 07/20/24 21:07 500 MG Fluoxetine HCl 10 mg DAILY PO 07/21/24 10:00 Ceftriaxone Sodium 50 ml @ 100 mls/hr DAILY@09 IV 07/21/24 09:00 Dextrose/Sodium Chloride 1,000 ml @ 75 mls/hr [id number] IV 07/20/24 19:15 07/20/24 20:30 75 MLS/HR Enoxaparin Sodium 30 mg DAILY SC 07/21/24 10:00 objective General: the patient is well developed and nourished. No acute distress. MENTAL STATUS: Oriented to himself SPEECH, LANGUAGE, HIGHER CORTICAL FUNCTION: no aphasia or dysathria. CRANIAL NERVES: Pupils are equal, round and reactive. EOMs full and conjugate. Facial sensation intact in all three divisions bilaterally. Mandibular strength intact. Facial muscles symmetrical and strength intact. SENSATION: Sensation to touch and pinprick is fine MOTOR: Normal tone in the upper and lower extremity. Normal muscle bulk. No fasciculations. No abnormal movements or posturing. He moves the arms REFLEXES: Deep tendon reflexes normal and symmetrical. No pathological reflexes. CEREBELLAR/COORDINATION: Deferred GAIT/STATION: deferred. laboratory and microbiology Laboratory Tests 07/20/24 03:44 Test 07/20/24 03:44 Range/Units Serum Glucose 77 74-106 mg/dL Problem List Episodic events with brief nonresponsiveness Partial complex seizure ? TIAs/stroke ? Metabolic encephalopathy Advanced cancer Leukocytosis/sepsis Thrombocytopenia General weakness, multifactorial Assessment/Plan Monitoring Supportive treatment Telemetry IV antibiotics More recommendation per clinical course This medical document was created using an electronic medical record system with [employer] [place] dictation system. Although this document has been carefully reviewed, there may still be some phonetic and typographical errors. These areas are purely typographical due to imperfections of the software programs, and do not reflect any compromise in the patient's medical care Prognosis poor Dietary Evaluation Review Recommendations by RD: Protein Supplementation Comments: 1) Initiate Glucerna bid 2) Encourage PO intake 3) Continue Zofran prn Expected Outcomes/Goals: 1) appetite and labs to improve 2) f/u in 5 days Plan discussed with: BINTA Elizondo MD Jul 20, 2024 23:00
[2024-07-20] MEDS: TEMAZEPAM 15 MG CAP PO PRN (23:29)
[2024-07-21] VITALS (8 sets, daily range): BP systolic 129–138; BP diastolic 76–84; PULSE 78–95; RESP 14–18; TEMP 97.3–98.7; O2SAT 96–100
[2024-07-21 06:12] LABS: Hemoglobin 9.8 g/dL (13.5-17.5); White Blood Cell 14.8 10^3/uL (4.4-10.8)
[2024-07-21 06:15] LABS: Hematocrit 31.1 % (41.0-53.0); Mean Corpuscular Hemoglobin 24.7 pg (28.0-32.0); Mean Corpuscular Hgb Conc. 31.3 g/dL (32.0-36.0); Mean Corpuscular Volume 78.9 fL (80.0-100.0); Platelet Count (auto) 169 10^3/uL (140-450); Red Blood Cells 3.95 10^6/uL (4.5-5.90)
[2024-07-21 06:16] LABS: Red Cell Distribution Width 21.2 % (11.8-14.3)
[2024-07-21 06:17] LABS: Basophils % (manual) 0 (0.0-2.0); Blast Cells 0; Eosinophils % (manual) 0 (0-7); Metamyelocytes % 0; Myelocytes % 0; Promyelocytes % 0; Reactive Lymphocytes 0
[2024-07-21 06:22] LABS: Anion Gap 7 (5-15); Carbon Dioxide 26 mmol/L (20-31); Chloride 103 mmol/L (98-107)
[2024-07-21 06:27] LABS: Calcium 7.7 mg/dL (8.7-10.4); Potassium 3.2 mmol/L (3.5-5.1); Sodium 136 mmol/L (136-145)
[2024-07-21 06:28] LABS: BUN/Creatinine Ratio 27.1 (10.0-20.0); Blood Urea Nitrogen 13 mg/dL (9-23); Glucose 85 mg/dL (74-106)
[2024-07-21 06:48] LABS: Band Neutrophils % (manual) 5; Lymphocytes % (manual) 12 (10.0-50.0); Monocytes % (manual) 5 (0-12)
[2024-07-21 06:49] LABS: Anisocytosis Slight; Hypochromia Slight; Ovalocytes FEW; Platelet Estimate Adequate
--- NOTE | 2024-07-21 08:36 | DVHINCON2 ---
Date of service: Jul 21, [address] Lizzie Alcazar Reason for Consultation Gastric cancer on chemotherapy History of Present Illness 64 years old gentleman whose family is by his bedside, has a history of Gastric adenocarcinoma, moderately differentiated, likely metastatic: Status post upper endoscopy on 02/29/2024: Large 7 to 8 cm gastric mass in the for this which was friable polypoid with central ulceration with oozing and with increased bleeding from biopsy sites. 02/29/2024 Pathology, gastric fundic mass: Adenocarcinoma, intestinal type moderately differentiated, HER2/salvador negative no H. pylori. 02/28/2024: CT of the abdomen pelvis without contrast showed 6.3 x 8.2 x 6.3 cm mass at the stomach fundus. Multiple perigastric lymph nodes with largest measures 3.9 cm. 04/21/2024 PET/CT: Intensely hypermetabolic mass in the gastric fundus, consistent with known gastric malignancy. Multiple moderate to intensely hypermetabolic perigastric lymph nodes measure up to 4.5 cm, most consistent with metastatic lymphadenopathy. Mildly hypermetabolic bilateral axillary lymph nodes with a notable left axillary lymph node measuring up to 1.4 cm. These are nonspecific but worrisome for possible metastatic lymphadenopathy, particularly the aforementioned lymph nodes on the left. Asymmetrically prominent/slightly hypermetabolic left supraclavicular lymph nodes. While these are nonspecific in nature, they raise concern for possible early/developing metastatic lymphadenopathy. Initiated FLOT cycle 1 day 1 on 05/07/2024. Cycle 1 complicated by admission to [facility] from 05/10/2024 to 05/19/2024 due to abdominal pain and diarrhea. CT A/P on 05/15/2024 showed 7.2 cm irregular enhancing exophytic mass in the gastric fundus extending into the splenic hilum. Perigastric metastatic lymph nodes. Irregular wall thickening and surrounding fat stranding in the distal colon compatible with proctocolitis. Cycle 2 was on 05/22/2024. 05/29/[address] [place] [facility] [place], and given findings of distant disease on imaging and left supraclavicular and bilateral axillary lymph nodes, patient was recommended to continue chemotherapy, with no plans for surgery at the current time. Based on notes, recommended neoadjuvant FLOT, then repeat PET to evaluate for response. Patient received cycle 3 on 06/11/2024. Evaluated on 06/17/2024 due to persistent diarrhea and epigastric/left upper quadrant abdominal pain. Admitted to [facility] on 06/19/2024 due to persistent diarrhea. CT A/P on 06/19/2024 findings suggestive of gastric malignancy with ulceration. Mass measures up to 83 mm. Multiple enlarged gastrohepatic lymph nodes likely represent metastatic disease. Diffuse abnormal appearance of the colon from the transverse colon to the rectum. Colitis not excluded. Diagnosed with C. difficile and treated with vancomycin 125 mg p.o. 4 times daily and metronidazole 500 mg every 8 hours. Based on patient's report, he has been treated for a total of 2 weeks. Patient was readmitted to the hospital on 07/04/2024 due to lower extremity edema. He underwent CT angio on 07/05/2024, which did not reveal evidence of PE. However CT scan noted no change in the gastric mass. Partial encasement but no occlusion of the vessels in the spleen. Few metastatic lesions in the mesentery in the area of the lesser curvature of the stomach. cycle 4 of FLOT 07/09/2024. The patient is admitted with generalized weakness and some midepigastric pain. Patient had some mental status change and had constipation. The constipation is better now than he developed diarrhea which is improving. His mental status is improving. He still has midabdominal pains in the epigastric area. No nausea vomiting. His appetite is fair. Tramadol seems to help his pains CT abdomen and pelvis without contrast on 07/13/2024 showed suggestion of fluid overload and diffuse large colonic stool Chest x-ray was unremarkable Is renal function and liver functions are normal except the total protein is 4.3 albumin 2.4 White count is 14.8, platelets 169 stool guaiac is positive, hemoglobin 9.8 Brain MRI without contrast was unremarkable He has been evaluated by the neurologist forearm brief episode of nonresponsiveness Past Medical History 1.Gastric cancer 2. Diabetes: 3. Hypertension: No complaints. 4. Hyperlipidemia Family History: FHx: colon cancer G8 MOTHER (UNKNOWN MEDICAL HISTORY), , Onset:Unknown Hypertension G8 FATHER (HTN), , Onset:Unknown Allergies: Coded Allergies: Amoxicillin (Verified Allergy, Severe, 06/03/24) Home Meds Active Scripts Morphine Sulfate (Morphine Sulfate Cr) 15 Mg Tab, 1 TAB PO BID for 5 Days, #10 TAB Prov:MARISOL COOL MD 07/07/24 Furosemide (Lasix) 40 Mg Tab, 40 MG PO DAILY for 30 Days, #30 TAB Prov:MARISOL COOL MD 07/07/24 Sucralfate (Carafate) 1 Gm/10 Ml Alysha, 10 ML PO BID for 14 Days, #120 ML 1 [facility]24 Pantoprazole Sodium Sesquihydr (Protonix) 40 Mg Tab, 40 MG PO BID for 14 Days, #28 TAB [facility] 06/26/24 Yeast (S. Boulardii)(S. Cerevi (Probiotic) 250 Mg Cap, 250 MG PO DAILY for 14 Days, #14 CAP [facility]/25/24 Famotidine (PEPCID TABLET) 20 Mg Tb, 1 TAB PO BID for 14 Days, #28 TAB 5 [facility]ills [facility] 06/25/24 Reported Medications Loperamide Hcl (Loperamide Hcl) 2 Mg Cap, 2 MG PO Q6HP, MG 06/20/24 Glipizide (Glipizide) 5 Mg Tab, 5 MG PO DAILY, TAB 06/20/24 Diphenoxylate W/ Atropine (Lomotil) 2.5 Mg Tab, 2.5 MG PO, TAB 06/20/24 Benazepril & Hydrochlorothiazi (Benazepril Hydrochloride/ 20-12.5 mg) 1 Tab Tab, 1 TAB PO BID, TAB 06/20/24 Prochlorperazine Maleate (Compazine) 10 Mg Tb, 1 TAB PO Q8HR, #60 TAB 3 Refills 06/20/24 Ondansetron HCl (Ondansetron) 4 Mg Tab, 8 MG SL Q8HPRN, TAB 06/20/24 Linagliptin Base (TRADJENTA) 5 Mg Tab, 1 TAB PO DAILY, #90 TAB 1 Refill 02/28/24 Atorvastatin Calcium (ATORVASTATIN CALCIUM) 10 Mg Tab, 10 MG PO HS 02/28/24 Current Medications Current Medications Medications (Trade) Dose Ordered Sig/Polina Route PRN Reason Start Time Stop Time Status Last Admin Metronidazole (Flagyl Tablet) 500 mg Q8HR PO 07/20/24 14:00 07/21/24 05:24 Fluoxetine HCl (PROzac CAPSULE) 10 mg DAILY PO 07/21/24 10:00 Ceftriaxone Sodium 50 ml @ 100 mls/hr DAILY@09 IV 07/21/24 09:00 Dextrose/Sodium Chloride 1,000 ml @ 75 mls/hr [id number] IV 07/20/24 19:15 07/20/24 20:30 Enoxaparin Sodium (Lovenox) 30 mg DAILY SC 07/21/24 10:00 Temazepam (Restoril) 15 mg HSPRN PRN PO FOR INSOMNIA 07/20/24 23:30 07/20/24 23:29 Vital Signs Vital Signs Date Time Temp Pulse Resp B/P (MAP) Pulse Ox O2 Delivery O2 Flow Rate FiO2 07/21/24 05:00 98.0 82 14 131/76 (94) 98 98.0 07/20/24 20:00 Room Air* 0 21 Physical Exam Moderately built and nourished, in no acute distress, alert and oriented. Does complain of some pain in the midepigastric area No jaundice Head and neck: Unremarkable for any masses or neck nodes. No conjunctival or mucosal hemorrhage Lungs: Clear Cardiovascular: S1-S2 heard well Abdomen: No organomegal or ascites. Bowel sounds are present. Slightly tender in the epigastric area Extremities: No clubbing edema cyanosis or calf tenderness. Skin: Unremarkable for petechia purpura ecchymosis Lymphadenopathy: None Neurological exam: No focal deficit Labs/Diagnostic Data Labs Test 07/21/24 05:47 07/20/24 12:52 07/20/24 03:44 07/19/24 21:27 Range/Units White Blood Count 14.8 H 4.4-10.8 10^3/uL Red Blood Count 3.95 L 4.5-5.90 10^6/uL Hemoglobin 9.8 L 13.5-17.5 g/dL Hematocrit 31.1 L 41.0-53.0 % Mean Corpuscular Volume 78.9 L 80.0-100.0 fL Mean Corpuscular Hemoglobin 24.7 L 28.0-32.0 pg Mean Corpuscular Hemoglobin Concent 31.3 L 32.0-36.0 g/dL Red Cell Distribution Width 21.2 H 11.8-14.3 % Platelet Count 169 140-450 10^3/uL Mean Platelet Volume 6.9 6.9-10.8 fL Neutrophils (%) (Auto) 37.0-80.0 % Lymphocytes (%) (Auto) 10.0-50.0 % Monocytes (%) (Auto) 0.0-12.0 % Basophils (%) (Auto) 0.0-2.0 % Neutrophils # (Auto) 1.6-8.6 10 ^3/uL Lymphocytes # (Auto) 0.4-5.4 10 ^3/uL Monocytes # (Auto) 0-1.3 10 ^3/uL Differential Total Cells Counted 100.0 100 Neutrophils % (Manual) 78 37.0-80.0 Band Neutrophils % (Manual) 5 Lymphocytes % (Manual) 12 10.0-50.0 Monocytes % (Manual) 5 0-12 Eosinophils % (Manual) 0 0-7 Basophils % (Manual) 0 0.0-2.0 Metamyelocytes % (manual) 0 Myelocytes % (Manual) 0 Promyelocytes % (Manual) 0 Blast Cells % (Manual) 0 Reactive Lymphocytes 0 Platelet Estimate Adequate Hypochromasia (manual) Slight Anisocytosis (manual) Slight Microcytosis Slight Ovalocytes Few Schistocytes Few Sodium Level 136 136-145 mmol/L Potassium Level 3.2 L 3.5-5.1 mmol/L Chloride Level 103 98-107 mmol/L Carbon Dioxide Level 26 20-31 mmol/L Anion Gap 7 5-15 Blood Urea Nitrogen 13 9-23 mg/dL Creatinine 0.48 L 0.700-1.30 mg/dL Glomerular Filtration Rate Calc 117 >90 mL/min BUN/Creatinine Ratio 27.1 H 10.0-20.0 Serum Glucose 85 74-106 mg/dL Calcium Level 7.7 L 8.7-10.4 mg/dL POC Glucose 71 70-106 mg/dl Total Bilirubin 0.3 0.2-1.0 mg/dL Aspartate Amino Transferase (AST) 34 13-40 U/L Alanine Aminotransferase (ALT) 14 7-40 U/L Alkaline Phosphatase 127 H 46-116 U/L Total Protein 4.3 L 5.7-8.2 g/dL Albumin 2.4 L 3.2-4.8 g/dL Stool Occult Blood Positive Negative Stool Occult Blood Sample #3 Negative Test 07/17/24 10:48 07/13/24 18:28 07/13/24 13:42 07/13/24 04:26 Range/Units Phosphorus Level 1.4 L 2.4-5.1 mg/dL Magnesium Level 1.7 1.6-2.6 mg/dL Prolactin 4.81 2.1-17.7 ng/mL Blood Gas Specimen Type Arterial Blood Gas Sample Site Left radial Blood Gas Patient Temperature 37.0 Arterial Blood Date Drawn [id number] Arterial Blood pH 7.474 H 7.350-7.450 Arterial Blood Partial Pressure CO2 40.1 35.0-48.0 mmHg Arterial Blood Partial Pressure O2 63.2 L 83.0-108.0 mmHg Arterial Blood HCO3 28.8 H 21.0-28.0 mmol/L Arterial Blood Oxygen Saturation 92.1 L 94.0-98.0 % Arterial Blood Base Excess 4.8 H -2.0-3.0 mmol/L Arterial Blood Oxyhemoglobin 90.5 L 94.0-98.0 % Arterial Blood Carboxyhemoglobin 0.8 0.5-1.5 % Arterial Blood Methemoglobin 0.9 0.0-1.5 % [place] Test Yes Blood Gas Total Hemoglobin 9.90 L 13.5-17.5 g/dL Blood Gas Modality Room air FiO2 % 21.0 Ammonia 21 11-32 umol/L Thyroid Stimulating Hormone (TSH) 2.87 0.55-4.78 uIU/mL Test 07/13/24 03:30 07/12/24 21:00 07/12/24 19:54 Range/Units Urine Color Light-yellow Yellow Urine Clarity Clear Clear Urine pH 7.0 5.0-9.0 Urine Specific [place] 1.012 1.001-1.035 Urine Protein Trace H Negative Urine Ketones Negative Negative Urine Blood Negative Negative /uL Urine Nitrite Negative Negative Urine Bilirubin Negative Negative Urine Urobilinogen Normal Negative mg/dL Urine Leukocyte Esterase Negative Negative /uL Urine RBC 3 0 - 3 /hpf Urine Microscopic WBC 4 H 0-3 /HPF Urine Squamous Epithelial Cells Few <5 /hpf Urine Bacteria Few H None Seen /hpf Urine Mucus Few None Seen Urine Yeast (Budding) Occasional None Seen /hpf Urine Glucose Normal Normal mg/dL Troponin I High Sensitivity < 3 L </=54 ng/L Prothrombin Time 10.9 9.3-11.8 sec Prothrombin Time INR 1.03 0.9-1.15 Activated Partial Thromboplast Time 25.6 24.5-34.5 SEC B-Type Natriuretic Peptide 19.37 0-100 pg/mL Microbiology Date/Time Source Procedure Growth Status 07/20/24 14:00 Urine - Midstream Clean Catch Urine Culture - Preliminary Resulted 07/13/24 04:35 Blood Blood Culture - Final NO GROWTH AFTER 5 DAYS OF INCUBATION. Complete Assessment 1.64 years old gentleman with a history of gastric adenocarcinoma with PET scan showing hypermetabolic mass in the gastric fundus and multiple moderate to intensely hypermetabolic perigastric lymph nodes measuring up to 4.5 cm and mildly hypermetabolic bilateral axillary lymph nodes with a left axillary lymph node measuring 1.4 cm, nonspecific but could be concern for metastatic disease, asymmetrically prominent slightly hypermetabolic left supraclavicular lymph nodes while nonspecific but could be metastatic Status post four cycles of chemotherapy with FLOT and 1st treatment on 05/07/2024 and the 4th treatment on 07/09/2024 Admitted with generalized weakness an episode of nonresponsiveness and has gotten better was having loose bowel movements which are improving Waiting for a PET-CT as an outpatient and the present CT of the abdomen pelvis without contrast does not show any lymph nodes CT abdomen and pelvis without contrast on 07/13/2024 showed suggestion of fluid overload and diffuse large colonic stool Chest x-ray was unremarkable Is renal function and liver functions are normal except the total protein is 4.3 albumin 2.4 White count is 14.8, platelets 169 stool guaiac is positive, hemoglobin 9.8 Brain MRI without contrast was unremarkable He has been evaluated by the neurologist forearm brief episode of nonre sponsiveness Diabetes 3. Hypertension 4. Hyperlipidemia Plan/Recommendation Patient is feeling better Continue tramadol He will follow as an outpatient Will arrange for a PET-CT as an outpatient Plan discussed with: Patient, Spouse, Daughter, Son MAXIMILIANOSOLIS MD Jul 21, 2024 08:36
[2024-07-21] MEDS: FLUoxetine HCL 10 MG CAP PO SCH (09:20)
[2024-07-21] MEDS: ENOXAPARIN SOD 30 MG/0.3 ML SYRINGE SC SCH (09:20)
[2024-07-21] MEDS: cefTRIAXone 1GM/50ML D5W 50 ML IV SCH (09:21)
--- NOTE | 2024-07-21 14:38 | DVHCONRES ---
Date Seen: Jul 21, 2024 Resident Creating Document: NEREYDA ROJAS RESIDENT Referring Physician [place] Reason for Consultation Stool occult positive History of Present Illness Patient is 64-year-old male with known gastric cancer metastasis, diagnosed gastric adenocarcinoma going through chemotherapy presented to hospital for chief complaint of worsening fatigue, generalized weakness and mild epigastric pain. Before coming to hospital patient had constipation and worsening mental status for the last two weeks. Before coming to hospital patient developed diarrhea which was improving however mental status continued to be worsened. Patient is still has mild abdominal epigastric pain, no nausea or vomiting however had multiple episodes of diarrhea today. Patient is receiving tramadol for pain, no any other symptoms. Last chemotherapy was on 09 July 2024, no plan for surgery. Following with Hematology Oncology in outpatient setting. GI consultation has been done given stool occult blood is positive. No any other new complaints. Past medical history: Metastatic gastric adenocarcinoma, hypertension, hyperlipidemia, diabetes mellitus Medication: On chemotherapy: Float cycle one started on 05/07/2024., received total four cycle, last cycle on 07/09/2024 Surgical history: Underwent EGD on 02/28/2025. Large 7 to 8 cm gastric mass in the for this which was friable polypoid with central ulceration with oozing and with increased bleeding from biopsy sites. No colonoscopy. Allergy: Amoxicillin Family history: Lives with family. Family History: FHx: colon cancer G8 MOTHER (UNKNOWN MEDICAL HISTORY), , Onset:Unknown Hypertension G8 FATHER (HTN), , Onset:Unknown Allergies: Coded Allergies: Amoxicillin (Verified Allergy, Severe, 06/03/24) Home Meds Active Scripts Morphine Sulfate (Morphine Sulfate Cr) 15 Mg Tab, 1 TAB PO BID for 5 Days, #10 TAB Prov:MARISOL COOL MD 07/07/24 Furosemide (Lasix) 40 Mg Tab, 40 MG PO DAILY for 30 Days, #30 TAB Prov:MARISOL COOL MD 07/07/24 Sucralfate (Carafate) 1 Gm/10 Ml Alysha, 10 ML PO BID for 14 Days, #120 ML 1 Refill Prov:KIRAN FORDE 06/26/24 Pantoprazole Sodium Sesquihydr (Protonix) 40 Mg Tab, 40 MG PO BID for 14 Days, #28 TAB Prov:KIRAN FORDE RESIDENT 06/26/24 Yeast (S. Boulardii)(S. Cerevi (Probiotic) 250 Mg Cap, 250 MG PO DAILY for 14 Days, #14 CAP Prov:KIRAN FORDE RESIDENT 06/25/24 Famotidine (PEPCID TABLET) 20 Mg Tb, 1 TAB PO BID for 14 Days, #28 TAB 5 Refills Prov:KIRAN FORDE RESIDENT 06/25/24 Reported Medications Loperamide Hcl (Loperamide Hcl) 2 Mg Cap, 2 MG PO Q6HP, MG 06/20/24 Glipizide (Glipizide) 5 Mg Tab, 5 MG PO DAILY, TAB 06/20/24 Diphenoxylate W/ Atropine (Lomotil) 2.5 Mg Tab, 2.5 MG PO, TAB 06/20/24 Benazepril & Hydrochlorothiazi (Benazepril Hydrochloride/ 20-12.5 mg) 1 Tab Tab, 1 TAB PO BID, TAB 06/20/24 Prochlorperazine Maleate (Compazine) 10 Mg Tb, 1 TAB PO Q8HR, #60 TAB 3 Refills 06/20/24 Ondansetron HCl (Ondansetron) 4 Mg Tab, 8 MG SL Q8HPRN, TAB 06/20/24 Linagliptin Base (TRADJENTA) 5 Mg Tab, 1 TAB PO DAILY, #90 TAB 1 Refill 02/28/24 Atorvastatin Calcium (ATORVASTATIN CALCIUM) 10 Mg Tab, 10 MG PO HS 02/28/24 Current Medications Current Medications Medications (Trade) Dose Ordered Sig/Polina Route PRN Reason Start Time Stop Time Status Last Admin Fluoxetine HCl (PROzac CAPSULE) 10 mg DAILY PO 07/21/24 10:00 07/21/24 09:20 Ceftriaxone Sodium 50 ml @ 100 mls/hr DAILY@09 IV 07/21/24 09:00 07/21/24 09:21 Dextrose/Sodium Chloride 1,000 ml @ 75 mls/hr [id number] IV 07/20/24 19:15 07/20/24 20:30 Enoxaparin Sodium (Lovenox) 30 mg DAILY SC 07/21/24 10:00 07/21/24 09:20 Temazepam (Restoril) 15 mg HSPRN PRN PO FOR INSOMNIA 07/20/24 23:30 07/20/24 23:29 Review of Systems Patient is mildly confused, alert, complaining of mild epigastric abdominal pain. No any other new complaints. Patient also had watery 4-5 bowel movements today. Vital Signs Vital Signs Date Time Temp Pulse Resp B/P (MAP) Pulse Ox O2 Delivery O2 Flow Rate FiO2 07/21/24 09:00 97.7 78 15 138/80 (99) 96 97.7 07/20/24 20:00 Room Air* 0 21 Physical Exam General Appearance: Alert, not oriented to time place and person. Answering question, not comprehensible. Head Exam: Normal inspection Neck Exam: Normal inspection. Non-tender. Normal alignment Pulmonary/Respiratory: Chest non-tender. Clear bilateral breath sounds Cardiovascular/Chest: Regular rate and rhythm. No murmurs. No JVD. Peripheral Pulses: 2+ Radial (R). 2+ Radial (L). 2+ Pedal (R). 2+ Pedal (L) Abdominal Exam: Normal bowel sounds. Soft. Nontender. Ankle Exam: Negative ankle edema Lower extremities: Negative lower extremity edema Neuro/Mental Status: A&O x1 Labs/Diagnostic Data Labs Test 07/21/24 05:47 07/20/24 12:52 07/20/24 03:44 07/19/24 21:27 Range/Units White Blood Count 14.8 H 4.4-10.8 10^3/uL Red Blood Count 3.95 L 4.5-5.90 10^6/uL Hemoglobin 9.8 L 13.5-17.5 g/dL Hematocrit 31.1 L 41.0-53.0 % Mean Corpuscular Volume 78.9 L 80.0-100.0 fL Mean Corpuscular Hemoglobin 24.7 L 28.0-32.0 pg Mean Corpuscular Hemoglobin Concent 31.3 L 32.0-36.0 g/dL Red Cell Distribution Width 21.2 H 11.8-14.3 % Platelet Count 169 140-450 10^3/uL Mean Platelet Volume 6.9 6.9-10.8 fL Neutrophils (%) (Auto) 37.0-80.0 % Lymphocytes (%) (Auto) 10.0-50.0 % Monocytes (%) (Auto) 0.0-12.0 % Basophils (%) (Auto) 0.0-2.0 % Neutrophils # (Auto) 1.6-8.6 10 ^3/uL Lymphocytes # (Auto) 0.4-5.4 10 ^3/uL Monocytes # (Auto) 0-1.3 10 ^3/uL Differential Total Cells Counted 100.0 100 Neutrophils % (Manual) 78 37.0-80.0 Band Neutrophils % (Manual) 5 Lymphocytes % (Manual) 12 10.0-50.0 Monocytes % (Manual) 5 0-12 Eosinophils % (Manual) 0 0-7 Basophils % (Manual) 0 0.0-2.0 Metamyelocytes % (manual) 0 Myelocytes % (Manual) 0 Promyelocytes % (Manual) 0 Blast Cells % (Manual) 0 Reactive Lymphocytes 0 Platelet Estimate Adequate Hypochromasia (manual) Slight Anisocytosis (manual) Slight Microcytosis Slight Ovalocytes Few Schistocytes Few Sodium Level 136 136-145 mmol/L Potassium Level 3.2 L 3.5-5.1 mmol/L Chloride Level 103 98-107 mmol/L Carbon Dioxide Level 26 20-31 mmol/L Anion Gap 7 5-15 Blood Urea Nitrogen 13 9-23 mg/dL Creatinine 0.48 L 0.700-1.30 mg/dL Glomerular Filtration Rate Calc 117 >90 mL/min BUN/Creatinine Ratio 27.1 H 10.0-20.0 Serum Glucose 85 74-106 mg/dL Calcium Level 7.7 L 8.7-10.4 mg/dL POC Glucose 71 70-106 mg/dl Total Bilirubin 0.3 0.2-1.0 mg/dL Aspartate Amino Transferase (AST) 34 13-40 U/L Alanine Aminotransferase (ALT) 14 7-40 U/L Alkaline Phosphatase 127 H 46-116 U/L Total Protein 4.3 L 5.7-8.2 g/dL Albumin 2.4 L 3.2-4.8 g/dL Stool Occult Blood Positive Negative Stool Occult Blood Sample #3 Negative Test 07/17/24 10:48 07/13/24 18:28 07/13/24 13:42 07/13/24 04:26 Range/Units Phosphorus Level 1.4 L 2.4-5.1 mg/dL Magnesium Level 1.7 1.6-2.6 mg/dL Prolactin 4.81 2.1-17.7 ng/mL Blood Gas Specimen Type Arterial Blood Gas Sample Site Left radial Blood Gas Patient Temperature 37.0 Arterial Blood Date Drawn [id number] Arterial Blood pH 7.474 H 7.350-7.450 Arterial Blood Partial Pressure CO2 40.1 35.0-48.0 mmHg Arterial Blood Partial Pressure O2 63.2 L 83.0-108.0 mmHg Arterial Blood HCO3 28.8 H 21.0-28.0 mmol/L Arterial Blood Oxygen Saturation 92.1 L 94.0-98.0 % Arterial Blood Base Excess 4.8 H -2.0-3.0 mmol/L Arterial Blood Oxyhemoglobin 90.5 L 94.0-98.0 % Arterial Blood Carboxyhemoglobin 0.8 0.5-1.5 % Arterial Blood Methemoglobin 0.9 0.0-1.5 % [place] Test Yes Blood Gas Total Hemoglobin 9.90 L 13.5-17.5 g/dL Blood Gas Modality Room air FiO2 % 21.0 Ammonia 21 11-32 umol/L Thyroid Stimulating Hormone (TSH) 2.87 0.55-4.78 uIU/mL Test 07/13/24 03:30 07/12/24 21:00 07/12/24 19:54 Range/Units Urine Color Light-yellow Yellow Urine Clarity Clear Clear Urine pH 7.0 5.0-9.0 Urine Specific [place] 1.012 1.001-1.035 Urine Protein Trace H Negative Urine Ketones Negative Negative Urine Blood Negative Negative /uL Urine Nitrite Negative Negative Urine Bilirubin Negative Negative Urine Urobilinogen Normal Negative mg/dL Urine Leukocyte Esterase Negative Negative /uL Urine RBC 3 0 - 3 /hpf Urine Microscopic WBC 4 H 0-3 /HPF Urine Squamous Epithelial Cells Few <5 /hpf Urine Bacteria Few H None Seen /hpf Urine Mucus Few None Seen Urine Yeast (Budding) Occasional None Seen /hpf Urine Glucose Normal Normal mg/dL Troponin I High Sensitivity < 3 L </=54 ng/L Prothrombin Time 10.9 9.3-11.8 sec Prothrombin Time INR 1.03 0.9-1.15 Activated Partial Thromboplast Time 25.6 24.5-34.5 SEC B-Type Natriuretic Peptide 19.37 0-100 pg/mL Microbiology Date/Time Source Procedure Growth Status 07/20/24 14:00 Urine - Midstream Clean Catch Urine Culture - Preliminary Resulted 07/13/24 04:35 Blood Blood Culture - Final NO GROWTH AFTER 5 DAYS OF INCUBATION. Complete Assessment Stool occult positive Iron-deficiency anemia Metastatic gastric adenocarcinoma Possible delirium Acute diarrhea ? Rule out C diff Diabetes mellitus type Hypertension Dyslipidemia Leukocytosis Plan/recommendation Dr. Noe -Pending stool studies including C diff, stool culture, WBC. -continue IV Protonix 40 mg daily -hemoglobin stable, no active GI bleed. No acute GI intervention needed at this point. -outpatient follow up for any other GI intervention. -IV iron for iron-deficiency anemia -IV antibiotic as per primary team. Downgraded antibiotics if necessary. -Hematology-Oncology: Last chemotherapy on 07/09/2024, following in outpatient setting for another PET/CT scan. -poor prognosis -we will continue following the patient. Plan discussed with: Patient, Other (RN) NEREYDA ROJAS RESIDENT Jul 21, 2024 14:38
--- NOTE | 2024-07-21 15:21 | DVHPN2 ---
Subjective update 07/18 07/13-patient is seen in ED bed 9, complaining of epigastric/subxiphoid/left upper quadrant pain, there is some left upper quadrant tender to palpation/epigastrium tender to palpation/xiphoid tender to palpation. Bowel sounds normal, lung sounds normal. No symptoms of nausea and vomiting or diarrhea. Unclear if patient has decreased p.o. intake. Patient has ongoing diagnosis of cancer which may be advanced. Recently admitted for acute urinary retention requiring Ng which was to see and prior admitted for edema given Lasix and prior to that recently admitted for C diff with completed vancomycin p.o. oral course. Patient complains of pain and weakness and vague symptoms. Bicarb is elevated getting ABG, on admit WBC leukocytosis elevated with neutrophilia, concern for possible infection; platelets are declining 140-122. On workup is largely benign CXR normal, TSH normal, ammonia normal, troponins negative, BNP within normal limits,. There are many stable labs which has been elevated/low in the past, including: LFTs are mildly raised with ALP raised, total protein low, albumin low, calcium carotid chest below normal limit. Unclear what is the cause of pain and weakness, we will get CT abdomen to rule out any acute causes. Patient was multiple readmit for multiple different primary issues. Prognosis very poor. 07/14 - lab workup for weakness largely insignificant. CT abdomen with no acute findings but does show large stool burden consistent with high-grade constipation. Patient is feeling a little improved we will try bowel regimen and enema today. Patient was having poor p.o. tolerance likely due to constipation. We will keep patient on full liquid diet. Anticipate 1 more day to improve patient's impaction. Plan today for enema, lactulose, docusate, full liquid diet. 07/15-patient is in pain again since last night. Pain is epigastric corresponding to cancer. Are as above gastric ulcer from NSAIDs. Patient was starts becoming more lethargic and has episodes of nonresponsiveness with some concern of apnea. Patient was given a Toradol and regained some consciousness. Had a family discussion with goals of care and patient decides to be DNR DNI after confirming patient has decision-making capacity A&O times 3-4. Patient discussed with Oncology with plan to discuss hospice an upcoming appointment on Sunday07/21/2024. Given patient's worsening status over the past24 hours, discussion has had with patient's son about hospice with goal to control pain. We will give time to family to make decisions and continue to monitor patient., we will convert. DNR DNI, continue laxatives, continue pain control while avoiding IV purulence which can cause worsening respiratory depression given patient does have already episodes of hypopnea. 07/16 patient feeling improved this morning, upon the bedside. Family is giving him home cooked food which he is enjoying. Initially ready for discharge. Paged at afternoon with complaint of patient acute onset nausea and vomiting. Patient is lethargic again after emesis. Antiemetics given and family discussion had with plan to give more IV fluids clear liquid diet in small portions only and continue pain control. Likely DC tomorrow with close oncology follow up outpatient 07/17-this a.m. patient was called another code assist, he has another episode of staring into space, unresponsive but vitals stable and starts to respond again after a few seconds. Concern for absence seizures, neurology consulted pending prolactin. Patient continues to be in pain, weak, minimal p.o. tolerance. Patient does not seem to be improving and had vomited his pain was last night. Poor prognosis. Family still appears resistant to hospice. 07/18 - more awake alert. tolerating po. informed to intake small, freq amounts. neurology onboard wants to r/o absence seizures. EEG today. 07/21 - EEG and MRI negative, neurology work-uop negative. over weekend patient has dark stools, stool occult blood positive, this is expected as patient already has gastric carcinoma. The patient continues to have loose stools which is preferred over constipation which is primarily recent outpatient admission. The patient feels improved after IV fluids every a.m. and shortness O tolerate solid p.o. intake which then results in severe pain which then results in delirium and being bed-bound status. PT evaluated this a.m. when patient has been on pain and unable to get out of bed. In prior PT evaluation the patient has been doing well and can do well with front wheel walker. Patient and his family are verses sent to hospice discussions and believe the patient can improve based on oncology advice for ongoing treatment with PET scan and chemo. We will discuss with Oncology. Likely poor prognosis. We will give further IV fluids, stop IV antibiotics, resume pain control, trial GI cocktail, restart p.r.n. Imodium, strict full liquid diet only, discussed with Oncology, continue treat symptoms and plan to discharge med feeling symptomatically improved with home walker and home PT, tomorrow. Reviewed: H&P Changes from previous H/P or p: No Changes General: Per HPI Objective Vitals Vital Signs Date Time Temp Pulse Resp B/P (MAP) Pulse Ox O2 Delivery O2 Flow Rate FiO2 07/21/24 13:00 97.3 95 18 129/81 (97) 98 97.3 07/21/24 08:00 Room Air* 0 21 Intake/Output Intake and Output 07/21/24 07:00 Intake Total 50 ml Balance 50 ml IV Total 50 ml Exam GEN: Healthy appearing, well-developed, NAD. HEENT: NC/AT; MMM. CV: RRR, no m/r/g. LUNGS: Bibasilar rales. ABD: Tenderness epigastrium/left upper quadrant EXT: skin Warm, well perfused. no rashes. No clubbing, cyanosis, or edema. NEURO: Weakness in all extremities 3 of 5. Unclear if sensation is intact. Cranial nerves 2-12 intact. General Appearance: Alert, Oriented X3, Cooperative, No acute distress, Other (stares and goes into blank periodically//but comes back clera and answers questions) Lungs: Clear to auscultation Cardiovascular: Regular rate, Normal S1, Normal S2 Abdomen: Normal bowel sounds, Soft, No tenderness Musculoskeletal: Normal sensory function, Normal motor function, Other (walks to commode//but declined to lift his legs states feels weak) Neuro: Normal speech, Strength at 5/5 X4 ext, Sensation intact Psych/Mental Status: Mental status NL Medications Current Medications Medications Dose Ordered Sig/Polina Route Start Time Stop Time Status Last Admin Dose Admin Sucralfate 1 gm BID@0600,2200 PO 07/15/24 22:00 07/21/24 05:23 1 GM Gabapentin 300 mg TID PO 07/15/24 14:00 07/21/24 05:24 300 MG Lorazepam 1 mg ONCE PRN IV 07/18/24 00:45 Enteral Nutritional Formula 240 ml BIDWM PO 07/19/24 18:00 07/21/24 08:00 240 ML Acetaminophen 650 mg Q6HP PRN PO 07/19/24 23:15 07/20/24 23:29 650 MG Fluoxetine HCl 10 mg DAILY PO 07/21/24 10:00 07/21/24 09:20 10 MG Dextrose/Sodium Chloride 1,000 ml @ 75 mls/hr [id number] IV 07/20/24 19:15 07/20/24 20:30 75 MLS/HR Enoxaparin Sodium 30 mg DAILY SC 07/21/24 10:00 07/21/24 09:20 30 MG Temazepam 15 mg HSPRN PRN PO 07/20/24 23:30 07/20/24 23:29 15 MG Iron Sucrose 110 ml @ 110 mls/hr DAILY@1200 IV 07/22/24 12:00 07/26/24 12:59 UNV Acetaminophen/ Hydrocodone Bitart 1 tab Q4HP PRN PO 07/21/24 15:00 UNV Famotidine 20 mg Q12HR PO 07/21/24 22:00 UNV Laboratory Results Laboratory Tests 07/21/24 05:47 Chemistry Test 07/21/24 05:47 Calcium Level 7.7 mg/dL (8.7-10.4) L Urinalysis Test 07/13/24 03:30 Urine Color Light-yellow (Yellow) Urine Clarity Clear (Clear) Urine pH 7.0 (5.0-9.0) Urine Specific [place] 1.012 (1.001-1.035) Urine Protein Trace (Negative) H Urine Ketones Negative (Negative) Urine Blood Negative /uL (Negative) Urine Nitrite Negative (Negative) Urine Bilirubin Negative (Negative) Urine Urobilinogen Normal mg/dL (Negative) Urine Leukocyte Esterase Negative /uL (Negative) Urine RBC 3 /hpf (0 - 3) Urine Microscopic WBC 4 /HPF (0-3) H Urine Squamous Epithelial Cells Few /hpf (<5) Urine Bacteria Few /hpf (None Seen) H Urine Mucus Few (None Seen) Urine Yeast (Budding) Occasional /hpf (None Urine Glucose Normal mg/dL (Normal) Microbiology Microbiology Date/Time Source Procedure Growth Status 07/20/24 14:00 Urine - Midstream Clean Catch Urine Culture - Preliminary Resulted 07/13/24 04:35 Blood Blood Culture - Final NO GROWTH AFTER 5 DAYS OF INCUBATION. Complete Labs and/or images reviewed: Labs reviewed by me, Image(s) reviewed by me Assessment/Plan Assessment/Plan 07/21 - EEG and MRI negative, neurology work-uop negative. over weekend patient has dark stools, stool occult blood positive, this is expected as patient already has gastric carcinoma. The patient continues to have loose stools which is preferred over constipation which is primarily recent outpatient admission. The patient feels improved after IV fluids every a.m. and shortness O tolerate solid p.o. intake which then results in severe pain which then results in delirium and being bed-bound status. PT evaluated this a.m. when patient has been on pain and unable to get out of bed. In prior PT evaluation the patient has been doing well and can do well with front wheel walker. Patient and his family are verses sent to hospice discussions and believe the patient can improve based on oncology advice for ongoing treatment with PET scan and chemo. We will discuss with Oncology. Likely poor prognosis. We will give further IV fluids, stop IV antibiotics, resume pain control, trial GI cocktail, restart p.r.n. Imodium, strict full liquid diet only, discussed with Oncology, continue treat symptoms and plan to discharge med feeling symptomatically improved with home walker and home PT, tomorrow. Poor p.o. tolerance due to Constipation and fecal impaction and advanced cancer with mets Dark stools, stool occult blood positive, likely due to gastric cancer Generalized weakness , likely due to cancer but acute gastroenteritis possible, treatment completed, resolved seizure ruled-out, absence seizure ruled out Ruled out acute abdomen Fatigue likely due to cancer Neutrophilia , likely due to cancer Leukocytosis , likely due to cancer Thrombocytopenia Chronic elevated transaminitis and elevated ALP History of acute urinary retention , recurrence possible History of diarrhea and C diff, currently resolved History of anemia Diabetes Hypertension Current gastric carcinoma, currently on chemotherapy Hyperlipidemia - Patient has ongoing diagnosis of cancer which may be advanced. Recently admitted for acute urinary retention requiring Ng which was to see and prior admitted for edema given Lasix and prior to that recently admitted for C diff with completed vancomycin p.o. oral course. Patient complains of pain and weakness and vague symptoms - Bicarb is elevated getting ABG - on admit WBC leukocytosis elevated with neutrophilia, concern for possible infection - platelets are declining 140-122 - CXR normal, TSH normal, ammonia normal, troponins negative, BNP within normal limits. - 07/13 given GI cocktail x1 with some improvement - CT abdomen pelvis: Findings are suggestive of fluid overload. Moderate to large volume diffuse colonic stool. Distended stomach. - no signs of acute abdomen, SBO, bladder retention -CT head 07/15: Benign scan, no significant findings. - MRI brain 07/18 - negative for any acute process - EEG negative for any epileptic episodes or abnormal wave patterns - stool occult blood positive over weekend 07/19- - There are many stable labs which has been elevated/low in the past, including: LFTs are mildly raised with ALP raised, total protein low, albumin low, calcium carotid chest below normal limit. -today: IV fluids, stop IV antibiotics, resume pain control, trial GI cocktail, restart p.r.n. Imodium, strict full liquid diet only, discussed with Oncology, continue treat symptoms and plan to discharge med feeling symptomatically improved with home walker and home PT, tomorrow. - . Stops bowel regimen with miralax, docusate - stop antibiotic. Prior on on broad-spectrum antibiotics Zosyn, cover gi source. - p.r.n. pain control - sliding scale insulin for diabetes mild, hold p.o. meds - full liquid diet, small portion. Diet- FLD, small portions. DVT prophylaxis-Lovenox GI prophylaxis- pepcid po bid Med surg DNR DNI Plan discussed with: Patient My Orders Orders - JULIETA YOUNG MD Procedure Category Date Status Time Clostridium Difficile MARANDA 07/21/24 Logged Toxin 07:58 Pt Request For Service PT 07/21/24 Logged 09:42 Electrocardigram EKG 07/21/24 Logged 11:19 Electrocardigram EKG 07/21/24 Logged 12:19 Electrocardigram EKG 07/21/24 Logged 14:19 Complete Blood Count LAB 07/21/24 Logged 14:49 Hydrocodone-Acet PHA 07/21/24 Logged 10/325mg Tab ([place] 15:00 Full Liq Diet DIET 07/21/24 Transmitted Dinner Famotidine Tablet PHA 07/21/24 Logged (Pepcid Tablet) 22:00 Alum & Mag PHA 07/21/24 Logged Hydrox-Simethicone 15:15 Lidocaine 2% Viscous PHA 07/21/24 Logged (Xylocaine 2% [place] 15:15 Lactated Ringer's PHA 07/21/24 Logged 15:15 Date of Service: Jul 21, 2024 Billing Provider: JULIETA YOUNG MD Common Visit Codes: [id number] INP/OBS CARE(HIGH) JULIETA YOUNG MD Jul 21, 2024 15:21
[2024-07-21] MEDS: MAALOX PLUS or MAALOX 30 ML PO ONE (15:52)
[2024-07-21] MEDS: LIDOCAINE VISCOUS 2% 15ML UD PO ONE (15:52)
[2024-07-21] MEDS: HYDROcodone-ACET 10/325MG TAB PO PRN (15:53)
[2024-07-21] MEDS: LACTATED RINGER'S 500 ML IV ONE (15:54)
[2024-07-21] MEDS: POTASSIUM CHLORIDE 40 MEQ, LIDOCAINE 1% (LOCAL ANESTH.) 4 ML in SODIUM CHL 0.9% 250 ML IV ONE (15:54)
[2024-07-21 16:52] LABS: Eosinophils # (auto) 0 10 ^3/uL (0-0.8); Eosinophils % (auto) 0.1 % (0.0-7.0); Hemoglobin 9.5 g/dL (13.5-17.5)
[2024-07-21 16:56] LABS: Basophils # (auto) 0.1 10 ^3/uL (0-0.2); Basophils % (auto) 0.3 % (0.0-2.0); Hematocrit 30.1 % (41.0-53.0); Lymphocytes # (auto) 2.2 10 ^3/uL (0.4-5.4); Lymphocytes % (auto) 11.9 % (10.0-50.0); Mean Corpuscular Hemoglobin 24.9 pg (28.0-32.0); Mean Corpuscular Hgb Conc. 31.6 g/dL (32.0-36.0); Mean Corpuscular Volume 78.7 fL (80.0-100.0); Monocytes % (auto) 5.3 % (0.0-12.0); Neutrophils # (auto) 15.1 10 ^3/uL (1.6-8.6); Neutrophils % (auto) 82.4 % (37.0-80.0); Nucleated Red Blood Cells % 0.2 %; Platelet Count (auto) 176 10^3/uL (140-450); Red Blood Cells 3.83 10^6/uL (4.5-5.90); White Blood Cell 18.3 10^3/uL (4.4-10.8)
[2024-07-21 17:17] LABS: Red Cell Distribution Width 20.9 % (11.8-14.3)
[2024-07-21] MEDS: FAMOTIDINE 20 MG TAB PO SCH (21:08)
[2024-07-22] VITALS (9 sets, daily range): BP systolic 134–163; BP diastolic 75–82; PULSE 67–89; RESP 18–20; TEMP 97.2–98.7; O2SAT 98–100
[2024-07-22] MEDS: D5W/SOD CHL 0.45% 1,000 ML IV ONE ×2 (10:11→19:00)
[2024-07-22 10:19] LABS: Hemoglobin 9.9 g/dL (13.5-17.5); Red Blood Cells 4.02 10^6/uL (4.5-5.90); White Blood Cell 21.2 10^3/uL (4.4-10.8)
[2024-07-22 10:20] LABS: Mean Corpuscular Hemoglobin 24.7 pg (28.0-32.0); Mean Corpuscular Hgb Conc. 31.1 g/dL (32.0-36.0); Mean Corpuscular Volume 79.6 fL (80.0-100.0); Platelet Count (auto) 164 10^3/uL (140-450)
[2024-07-22 10:25] LABS: Chloride 106 mmol/L (98-107); Potassium 3.5 mmol/L (3.5-5.1); Sodium 136 mmol/L (136-145)
[2024-07-22 10:26] LABS: Anion Gap 5 (5-15); Carbon Dioxide 25 mmol/L (20-31)
[2024-07-22 10:31] LABS: Blood Urea Nitrogen 11 mg/dL (9-23); Glucose 101 mg/dL (74-106); Red Cell Distribution Width 21.5 % (11.8-14.3)
[2024-07-22 10:33] LABS: Basophils % (manual) 0 (0.0-2.0); Blast Cells 0; Eosinophils % (manual) 0 (0-7); Monocytes % (manual) 0 (0-12); Myelocytes % 0; Promyelocytes % 0; Reactive Lymphocytes 0
[2024-07-22 10:36] LABS: Calcium 7.5 mg/dL (8.7-10.4)
--- NOTE | 2024-07-22 10:50 | ECG ---
[facility] Test Date: 2024-07-21 Test Time: 11:38:19 Pat Name: LORETA ELENA Department: Room: 0233T A Gender: M [employer]er: : 1960 Requested By: JULIETA NELSON Order Number: [id number] Reading MD: Channing Grimm Measurements Intervals [place] Rate: 93 P: 23 NM: 149 QRS: 16 QRSD: 111 T: 23 QT: 363 QTc: 452 Interpretive Statements Sinus rhythm Low voltage, extremity leads Consider anterior infarct Electronically Signed On 07-22-2024 21:33:59 PST by Channing Grimm Please click the below link to view image of tracing.
[2024-07-22 11:35] LABS: Anisocytosis Slight; Band Neutrophils % (manual) 17; Hypochromia Slight; Lymphocytes % (manual) 11 (10.0-50.0); Metamyelocytes % 2; Platelet Estimate Adequate
[2024-07-22 11:36] LABS: Tear Drop Cells FEW
[2024-07-22] MEDS: IRON SUCROSE COMPLEX 110 ML IV SCH (12:59)
--- NOTE | 2024-07-22 14:32 | DVHPN2 ---
Progress Note Date Seen: Jul 22, 2024 Resident Creating Document: NEREYDA ROJAS RESIDENT Medical Necessity Reason Pt with a Central, PICC or Fol: No Subjective Review of Systems Patient is 64-year-old male with known gastric cancer metastasis, diagnosed gastric adenocarcinoma going through chemotherapy presented to hospital for chief complaint of worsening fatigue, generalized weakness and mild epigastric pain. Before coming to hospital patient had constipation and worsening mental status for the last two weeks. Before coming to hospital patient developed diarrhea which was improving however mental status continued to be worsened. Patient is still has mild abdominal epigastric pain, no nausea or vomiting however had multiple episodes of diarrhea today. Patient is receiving tramadol for pain, no any other symptoms. Last chemotherapy was on 09 July 2024, no plan for surgery. Following with Hematology Oncology in outpatient setting. GI consultation has been done given stool occult blood is positive. No any other new complaints. Past medical history: Metastatic gastric adenocarcinoma, hypertension, hyperlipidemia, diabetes mellitus Medication: On chemotherapy: Float cycle one started on 05/07/2024., received total four cycle, last cycle on 07/09/2024 Surgical history: Underwent EGD on 02/28/2025. Large 7 to 8 cm gastric mass in the for this which was friable polypoid with central ulceration with oozing and with increased bleeding from biopsy sites. No colonoscopy. Patient is seen and examined at bedside. Continued to have severe generalized weakness. Fatigue. Complaining of generalized pain as well. Objective vital signs Vital Sign Date Time Temp Pulse Resp B/P (MAP) Pulse Ox O2 Delivery O2 Flow Rate FiO2 07/22/24 12:06 98.7 67 20 146/79 (101) 99 98.7 07/22/24 08:30 Room Air* 0 21 Total Intake and Output 07/21/24 07/21/24 07/22/24 15:00 23:00 07:00 Intake Total 50 ml 1700 ml 1850 ml Balance 50 ml 1700 ml 1850 ml medications Current Medications Medications Dose Ordered Sig/Polina Route Start Time Stop Time Status Last Admin Dose Admin Sucralfate 1 gm BID@0600,2200 PO 07/15/24 22:00 07/22/24 05:38 1 GM Gabapentin 300 mg TID PO 07/15/24 14:00 07/22/24 05:38 300 MG Lorazepam 1 mg ONCE PRN IV 07/18/24 00:45 Enteral Nutritional Formula 240 ml BIDWM PO 07/19/24 18:00 07/22/24 08:35 240 ML Acetaminophen 650 mg Q6HP PRN PO 07/19/24 23:15 07/21/24 23:30 650 MG Fluoxetine HCl 10 mg DAILY PO 07/21/24 10:00 07/22/24 10:10 10 MG Enoxaparin Sodium 30 mg DAILY SC 07/21/24 10:00 07/22/24 10:10 30 MG Temazepam 15 mg HSPRN PRN PO 07/20/24 23:30 07/21/24 23:29 15 MG Iron Sucrose 110 ml @ 110 mls/hr DAILY@1200 IV 07/22/24 12:00 07/26/24 12:59 07/22/24 12:59 110 MLS/HR Acetaminophen/ Hydrocodone Bitart 1 tab Q4HP PRN PO 07/21/24 15:00 07/21/24 15:53 1 TAB Famotidine 20 mg Q12HR PO 07/21/24 22:00 07/22/24 10:10 20 MG Examination General Appearance: Alert, not oriented to time place and person. Answering question, not comprehensible. Head Exam: Normal inspection Neck Exam: Normal inspection. Non-tender. Normal alignment Pulmonary/Respiratory: Chest non-tender. Clear bilateral breath sounds Cardiovascular/Chest: Regular rate and rhythm. No murmurs. No JVD. Peripheral Pulses: 2+ Radial (R). 2+ Radial (L). 2+ Pedal (R). 2+ Pedal (L) Abdominal Exam: Normal bowel sounds. Soft. Nontender. Ankle Exam: Negative ankle edema Lower extremities: Negative lower extremity edema Neuro/Mental Status: A&O x1 laboratory and microbiology Laboratory Tests 07/22/24 09:49 Test 07/22/24 09:49 Range/Units Serum Glucose 101 74-106 mg/dL Microbiology Date/Time Source Procedure Growth Status 07/20/24 14:55 Blood Blood Culture - Preliminary NO GROWTH AFTER 24 HOURS OF INCUBATION. Resulted 07/20/24 14:00 Urine - Midstream Clean Catch Urine Culture - Final Complete Problem List/Assessment/Plan Problem List/Assessment/Plan Stool occult positive Iron-deficiency anemia Metastatic gastric adenocarcinoma Possible delirium Acute diarrhea ? Rule out C diff Diabetes mellitus type Hypertension Dyslipidemia Leukocytosis Plan/recommendation Dr. Noe -Pending stool studies including C diff, stool culture, WBC. -continue IV Protonix 40 mg daily -hemoglobin stable, no active GI bleed. No acute GI intervention needed at this point. -outpatient follow up for any other GI intervention. -IV iron for iron-deficiency anemia -IV antibiotic as per primary team. Downgraded antibiotics if necessary. -Hematology-Oncology: Last chemotherapy on 07/09/2024, following in outpatient setting for another PET/CT scan. -physical therapy -poor prognosis -we will continue following the patient. Plan discussed with: Patient, Other (RN) My Orders My Orders Orders - NEREYDA ROJAS Procedure Category Date Status Time Iron Sucrose Complex PHA 07/22/24 In Process (Venofer) 12:00 Dietary Evaluation Review Recommendations by RD: Protein Supplementation Comments: 1) Initiate Glucerna bid 2) Encourage PO intake 3) Continue Zofran prn Expected Outcomes/Goals: 1) appetite and labs to improve 2) f/u in 5 days NEREYDA ROJAS RESIDENT Jul 22, 2024 14:32
--- NOTE | 2024-07-22 14:53 | DVHPN2 ---
Subjective update 07/22 07/13-patient is seen in ED bed 9, complaining of epigastric/subxiphoid/left upper quadrant pain, there is some left upper quadrant tender to palpation/epigastrium tender to palpation/xiphoid tender to palpation. Bowel sounds normal, lung sounds normal. No symptoms of nausea and vomiting or diarrhea. Unclear if patient has decreased p.o. intake. Patient has ongoing diagnosis of cancer which may be advanced. Recently admitted for acute urinary retention requiring Ng which was to see and prior admitted for edema given Lasix and prior to that recently admitted for C diff with completed vancomycin p.o. oral course. Patient complains of pain and weakness and vague symptoms. Bicarb is elevated getting ABG, on admit WBC leukocytosis elevated with neutrophilia, concern for possible infection; platelets are declining 140-122. On workup is largely benign CXR normal, TSH normal, ammonia normal, troponins negative, BNP within normal limits,. There are many stable labs which has been elevated/low in the past, including: LFTs are mildly raised with ALP raised, total protein low, albumin low, calcium carotid chest below normal limit. Unclear what is the cause of pain and weakness, we will get CT abdomen to rule out any acute causes. Patient was multiple readmit for multiple different primary issues. Prognosis very poor. 07/14 - lab workup for weakness largely insignificant. CT abdomen with no acute findings but does show large stool burden consistent with high-grade constipation. Patient is feeling a little improved we will try bowel regimen and enema today. Patient was having poor p.o. tolerance likely due to constipation. We will keep patient on full liquid diet. Anticipate 1 more day to improve patient's impaction. Plan today for enema, lactulose, docusate, full liquid diet. 07/15-patient is in pain again since last night. Pain is epigastric corresponding to cancer. Are as above gastric ulcer from NSAIDs. Patient was starts becoming more lethargic and has episodes of nonresponsiveness with some concern of apnea. Patient was given a Toradol and regained some consciousness. Had a family discussion with goals of care and patient decides to be DNR DNI after confirming patient has decision-making capacity A&O times 3-4. Patient discussed with Oncology with plan to discuss hospice an upcoming appointment on Sunday07/21/2024. Given patient's worsening status over the past24 hours, discussion has had with patient's son about hospice with goal to control pain. We will give time to family to make decisions and continue to monitor patient., we will convert. DNR DNI, continue laxatives, continue pain control while avoiding IV purulence which can cause worsening respiratory depression given patient does have already episodes of hypopnea. 07/16 patient feeling improved this morning, upon the bedside. Family is giving him home cooked food which he is enjoying. Initially ready for discharge. Paged at afternoon with complaint of patient acute onset nausea and vomiting. Patient is lethargic again after emesis. Antiemetics given and family discussion had with plan to give more IV fluids clear liquid diet in small portions only and continue pain control. Likely DC tomorrow with close oncology follow up outpatient 07/17-this a.m. patient was called another code assist, he has another episode of staring into space, unresponsive but vitals stable and starts to respond again after a few seconds. Concern for absence seizures, neurology consulted pending prolactin. Patient continues to be in pain, weak, minimal p.o. tolerance. Patient does not seem to be improving and had vomited his pain was last night. Poor prognosis. Family still appears resistant to hospice. 07/18 - more awake alert. tolerating po. informed to intake small, freq amounts. neurology onboard wants to r/o absence seizures. EEG today. 07/21 - EEG and MRI negative, neurology work-uop negative. over weekend patient has dark stools, stool occult blood positive, this is expected as patient already has gastric carcinoma. The patient continues to have loose stools which is preferred over constipation which is primarily recent outpatient admission. The patient feels improved after IV fluids every a.m. and shortness O tolerate solid p.o. intake which then results in severe pain which then results in delirium and being bed-bound status. PT evaluated this a.m. when patient has been on pain and unable to get out of bed. In prior PT evaluation the patient has been doing well and can do well with front wheel walker. Patient and his family are verses sent to hospice discussions and believe the patient can improve based on oncology advice for ongoing treatment with PET scan and chemo. We will discuss with Oncology. Likely poor prognosis. We will give further IV fluids, stop IV antibiotics, resume pain control, trial GI cocktail, restart p.r.n. Imodium, strict full liquid diet only, discussed with Oncology, continue treat symptoms and plan to discharge med feeling symptomatically improved with home walker and home PT, tomorrow. 07/22 - the patient arousable this am. Patient remains weak and minimal verbal. Continues to can be abdominal pain. Family and patient remains resistant to hospice. GI on board. Pending C diff. we will hold off any antidiarrheals until C diff confirmed negative, p.r.n. Imodium was canceled and none was given.. WBCs remain elevated. Diarrhea resumes. Continuing IV fluid hydration. Stopped any laxatives. We will continue full liquid diet. Plan is to continue IV hydration and p.o. full liquid diet and if C diff is negative we will try some antidiarrheals and if patient continues to improve local home with walker and resume follow up with Oncology. Reviewed: H&P Changes from previous H/P or p: No Changes General: Per HPI Objective Vitals Vital Signs Date Time Temp Pulse Resp B/P (MAP) Pulse Ox O2 Delivery O2 Flow Rate FiO2 07/22/24 12:06 98.7 67 20 146/79 (101) 99 98.7 07/22/24 08:30 Room Air* 0 21 Intake/Output Intake and Output 07/22/24 07:00 Intake Total 3600 ml Balance 3600 ml Intake Oral 2150 ml IV Total 1450 ml # Voids 7 # Bowel Movements 8 Exam GEN: Healthy appearing, well-developed, NAD. HEENT: NC/AT; MMM. CV: RRR, no m/r/g. LUNGS: Bibasilar rales. ABD: Tenderness epigastrium/left upper quadrant EXT: skin Warm, well perfused. no rashes. No clubbing, cyanosis, or edema. NEURO: Weakness in all extremities 3 of 5. Unclear if sensation is intact. Cranial nerves 2-12 intact. General Appearance: Alert, Oriented X3, Cooperative, No acute distress, Other (stares and goes into blank periodically//but comes back clera and answers questions) Lungs: Clear to auscultation Cardiovascular: Regular rate, Normal S1, Normal S2 Abdomen: Normal bowel sounds, Soft, No tenderness Musculoskeletal: Normal sensory function, Normal motor function, Other (walks to commode//but declined to lift his legs states feels weak) Neuro: Normal speech, Strength at 5/5 X4 ext, Sensation intact Psych/Mental Status: Mental status NL Medications Current Medications Medications Dose Ordered Sig/Polina Route Start Time Stop Time Status Last Admin Dose Admin Sucralfate 1 gm BID@0600,2200 PO 07/15/24 22:00 07/22/24 05:38 1 GM Gabapentin 300 mg TID PO 07/15/24 14:00 07/22/24 05:38 300 MG Lorazepam 1 mg ONCE PRN IV 07/18/24 00:45 Enteral Nutritional Formula 240 ml BIDWM PO 07/19/24 18:00 07/22/24 08:35 240 ML Acetaminophen 650 mg Q6HP PRN PO 07/19/24 23:15 07/21/24 23:30 650 MG Fluoxetine HCl 10 mg DAILY PO 07/21/24 10:00 07/22/24 10:10 10 MG Enoxaparin Sodium 30 mg DAILY SC 07/21/24 10:00 07/22/24 10:10 30 MG Temazepam 15 mg HSPRN PRN PO 07/20/24 23:30 07/21/24 23:29 15 MG Iron Sucrose 110 ml @ 110 mls/hr DAILY@1200 IV 07/22/24 12:00 07/26/24 12:59 07/22/24 12:59 110 MLS/HR Acetaminophen/ Hydrocodone Bitart 1 tab Q4HP PRN PO 07/21/24 15:00 07/21/24 15:53 1 TAB Famotidine 20 mg Q12HR PO 07/21/24 22:00 07/22/24 10:10 20 MG Laboratory Results Laboratory Tests 07/22/24 09:49 Chemistry Test 07/22/24 09:49 Calcium Level 7.5 mg/dL (8.7-10.4) L Urinalysis Test 07/13/24 03:30 Urine Color Light-yellow (Yellow) Urine Clarity Clear (Clear) Urine pH 7.0 (5.0-9.0) Urine Specific [place] 1.012 (1.001-1.035) Urine Protein Trace (Negative) H Urine Ketones Negative (Negative) Urine Blood Negative /uL (Negative) Urine Nitrite Negative (Negative) Urine Bilirubin Negative (Negative) Urine Urobilinogen Normal mg/dL (Negative) Urine Leukocyte Esterase Negative /uL (Negative) Urine RBC 3 /hpf (0 - 3) Urine Microscopic WBC 4 /HPF (0-3) H Urine Squamous Epithelial Cells Few /hpf (<5) Urine Bacteria Few /hpf (None Seen) H Urine Mucus Few (None Seen) Urine Yeast (Bud[place]) Occasional /hpf (None Urine Glucose Normal mg/dL (Normal) Microbiology Microbiology Date/Time Source Procedure Growth Status 07/20/24 14:55 Blood Blood Culture - Preliminary NO GROWTH AFTER 24 HOURS OF INCUBATION. Resulted 07/20/24 14:00 Urine - Midstream Clean Catch Urine Culture - Final Complete Labs and/or images reviewed: Labs reviewed by me, Image(s) reviewed by me Assessment/Plan Assessment/Plan 07/22 - the patient arousable this am. Patient remains weak and minimal verbal. Continues to can be abdominal pain. Family and patient remains resistant to hospice. GI on board. Pending C diff. we will hold off any antidiarrheals until C diff confirmed negative, p.r.n. Imodium was canceled and none was given.. WBCs remain elevated. Diarrhea resumes. Left arm swelling , will eval for DVT. Continuing IV fluid hydration. Stopped any laxatives. We will continue full liquid diet. Plan is to continue IV hydration and p.o. full liquid diet and if C diff is negative we will try some antidiarrheals and if patient continues to improve local home with walker and resume follow up with Oncology. Poor p.o. tolerance due to Constipation and fecal impaction and advanced cancer with mets Dark stools, stool occult blood positive, likely due to gastric cancer Generalized weakness , likely due to cancer but acute gastroenteritis possible, treatment completed, resolved seizure ruled-out, absence seizure ruled out Ruled out acute abdomen Fatigue likely due to cancer Neutrophilia , likely due to cancer Leukocytosis , likely due to cancer Thrombocytopenia Chronic elevated transaminitis and elevated ALP History of acute urinary retention , recurrence possible History of diarrhea and C diff, currently resolved History of anemia Diabetes Hypertension Current gastric carcinoma, currently on chemotherapy Hyperlipidemia - Patient has ongoing diagnosis of cancer which may be advanced. Recently admitted for acute urinary retention requiring Ng which was to see and prior admitted for edema given Lasix and prior to that recently admitted for C diff with completed vancomycin p.o. oral course. Patient complains of pain and weakness and vague symptoms - Bicarb is elevated getting ABG - on admit WBC leukocytosis elevated with neutrophilia, concern for possible infection - platelets are declining 140-122 - CXR normal, TSH normal, ammonia normal, troponins negative, BNP within normal limits. - 07/13 given GI cocktail x1 with some improvement - CT abdomen pelvis: Findings are suggestive of fluid overload. Moderate to large volume diffuse colonic stool. Distended stomach. - no signs of acute abdomen, SBO, bladder retention -CT head 07/15: Benign scan, no significant findings. - MRI brain 07/18 - negative for any acute process - EEG negative for any epileptic episodes or abnormal wave patterns - stool occult blood positive over weekend 07/19- - There are many stable labs which has been elevated/low in the past, including: LFTs are mildly raised with ALP raised, total protein low, albumin low, calcium carotid chest below normal limit. -today: Continuing IV fluid hydration. Stopped any laxatives. We will continue full liquid diet. Plan is to continue IV hydration and p.o. full liquid diet and if C diff is negative we will try some antidiarrheals and if patient continues to improve local home with walker and resume follow up with Oncology. - . Stops bowel regimen with miralax, docusate - stop antibiotic. Prior on on broad-spectrum antibiotics Zosyn, cover gi source. - p.r.n. pain control - sliding scale insulin for diabetes mild, hold p.o. meds - full liquid diet, small portion. - Left arm swelling , will eval for DVT Diet- FLD, small portions. DVT prophylaxis- Lovenox GI prophylaxis- pepcid po bid Med surg DNR DNI Plan discussed with: Patient My Orders Orders - JULIETA YOUNG MD Procedure Category Date Status Time Hydrocodone-Acet PHA 07/21/24 In Process 10/325mg Tab ([place] 15:00 Full Liq Diet DIET 07/21/24 Transmitted Dinner Famotidine Tablet PHA 07/21/24 In Process (Pepcid Tablet) 22:00 D5w/Sod Chl 0.45% PHA 07/22/24 In Process (D5w 1/2ns) 09:45 Date of Service: Jul 22, 2024 Billing Provider: JULIETA YOUNG MD Common Visit Codes: [id number] INP/OBS CARE(HIGH) JULIETA YOUNG MD Jul 22, 2024 14:53
--- NOTE | 2024-07-22 15:50 | DVH ---
EXAM: US LT UPPER DVT Clinical History: left arm swelling Comparison: None Technique: Duplex Doppler evaluation of the deep venous systems of the left upper extremity from the internal ju gular to the ulnar vein including color Doppler and spectral/pulsed waveform analysis was performed. Findings: Normal compressibility and color Doppler flow is seen in the left upper extremity veins including the internal jugular, subclavian, axillary, brachial, radial and ulnar veins. Superficial venous thrombus in the left cephalic vein. Impression: 1. No sonographic evidence for left upper extremity DVT. 2. Superficial venous thrombus in the left cephalic vein.
[2024-07-23] VITALS (8 sets, daily range): BP systolic 132–138; BP diastolic 77–81; PULSE 86–136; RESP 17; TEMP 97.3–98.5; O2SAT 96–100
--- NOTE | 2024-07-23 10:23 | DVHPN2 ---
Subjective update 07/23 07/13-patient is seen in ED bed 9, complaining of epigastric/subxiphoid/left upper quadrant pain, there is some left upper quadrant tender to palpation/epigastrium tender to palpation/xiphoid tender to palpation. Bowel sounds normal, lung sounds normal. No symptoms of nausea and vomiting or diarrhea. Unclear if patient has decreased p.o. intake. Patient has ongoing diagnosis of cancer which may be advanced. Recently admitted for acute urinary retention requiring Ng which was to see and prior admitted for edema given Lasix and prior to that recently admitted for C diff with completed vancomycin p.o. oral course. Patient complains of pain and weakness and vague symptoms. Bicarb is elevated getting ABG, on admit WBC leukocytosis elevated with neutrophilia, concern for possible infection; platelets are declining 140-122. On workup is largely benign CXR normal, TSH normal, ammonia normal, troponins negative, BNP within normal limits,. There are many stable labs which has been elevated/low in the past, including: LFTs are mildly raised with ALP raised, total protein low, albumin low, calcium carotid chest below normal limit. Unclear what is the cause of pain and weakness, we will get CT abdomen to rule out any acute causes. Patient was multiple readmit for multiple different primary issues. Prognosis very poor. 07/14 - lab workup for weakness largely insignificant. CT abdomen with no acute findings but does show large stool burden consistent with high-grade constipation. Patient is feeling a little improved we will try bowel regimen and enema today. Patient was having poor p.o. tolerance likely due to constipation. We will keep patient on full liquid diet. Anticipate 1 more day to improve patient's impaction. Plan today for enema, lactulose, docusate, full liquid diet. 07/15-patient is in pain again since last night. Pain is epigastric corresponding to cancer. Are as above gastric ulcer from NSAIDs. Patient was starts becoming more lethargic and has episodes of nonresponsiveness with some concern of apnea. Patient was given a Toradol and regained some consciousness. Had a family discussion with goals of care and patient decides to be DNR DNI after confirming patient has decision-making capacity A&O times 3-4. Patient discussed with Oncology with plan to discuss hospice an upcoming appointment on Sunday07/21/2024. Given patient's worsening status over the past24 hours, discussion has had with patient's son about hospice with goal to control pain. We will give time to family to make decisions and continue to monitor patient., we will convert. DNR DNI, continue laxatives, continue pain control while avoiding IV purulence which can cause worsening respiratory depression given patient does have already episodes of hypopnea. 07/16 patient feeling improved this morning, upon the bedside. Family is giving him home cooked food which he is enjoying. Initially ready for discharge. Paged at afternoon with complaint of patient acute onset nausea and vomiting. Patient is lethargic again after emesis. Antiemetics given and family discussion had with plan to give more IV fluids clear liquid diet in small portions only and continue pain control. Likely DC tomorrow with close oncology follow up outpatient 07/17-this a.m. patient was called another code assist, he has another episode of staring into space, unresponsive but vitals stable and starts to respond again after a few seconds. Concern for absence seizures, neurology consulted pending prolactin. Patient continues to be in pain, weak, minimal p.o. tolerance. Patient does not seem to be improving and had vomited his pain was last night. Poor prognosis. Family still appears resistant to hospice. 07/18 - more awake alert. tolerating po. informed to intake small, freq amounts. neurology onboard wants to r/o absence seizures. EEG today. 07/21 - EEG and MRI negative, neurology work-uop negative. over weekend patient has dark stools, stool occult blood positive, this is expected as patient already has gastric carcinoma. The patient continues to have loose stools which is preferred over constipation which is primarily recent outpatient admission. The patient feels improved after IV fluids every a.m. and shortness O tolerate solid p.o. intake which then results in severe pain which then results in delirium and being bed-bound status. PT evaluated this a.m. when patient has been on pain and unable to get out of bed. In prior PT evaluation the patient has been doing well and can do well with front wheel walker. Patient and his family are verses sent to hospice discussions and believe the patient can improve based on oncology advice for ongoing treatment with PET scan and chemo. We will discuss with Oncology. Likely poor prognosis. We will give further IV fluids, stop IV antibiotics, resume pain control, trial GI cocktail, restart p.r.n. Imodium, strict full liquid diet only, discussed with Oncology, continue treat symptoms and plan to discharge med feeling symptomatically improved with home walker and home PT, tomorrow. 07/22 - the patient arousable this am. Patient remains weak and minimal verbal. Continues to can be abdominal pain. Family and patient remains resistant to hospice. GI on board. Pending C diff. we will hold off any antidiarrheals until C diff confirmed negative, p.r.n. Imodium was canceled and none was given.. WBCs remain elevated. Diarrhea resumes. Continuing IV fluid hydration. Stopped any laxatives. We will continue full liquid diet. Plan is to continue IV hydration and p.o. full liquid diet and if C diff is negative we will try some antidiarrheals and if patient continues to improve local home with walker and resume follow up with Oncology. 07/23 - since yesterday p.m. patient has been found to having nausea and vomiting. Diarrhea continues although low volume. C diff stool pending. Patient claims to feel weak although is able to be alert and awake. AOx3-4. Complaints she has some brain fatigue. Some darkening of vision. But visual mcbride intact. We will rehydrate with IV fluids today continue p.r.n. antiemetics, with 4-33 diff, other stool studies are negative for Shigella and Campylobacter. We will get KUB to evaluate nausea. Reviewed: H&P Changes from previous H/P or p: No Changes General: Per HPI Objective Vitals Vital Signs Date Time Temp Pulse Resp B/P (MAP) Pulse Ox O2 Delivery O2 Flow Rate FiO2 07/23/24 05:00 98.0 86 17 134/77 (96) 100 98.0 07/22/24 20:00 Room Air* 0 21 Intake/Output Intake and Output 07/23/24 07:00 Intake Total 360 ml Balance 360 ml Intake Oral 250 ml IV Total 110 ml # Voids 1 # Bowel Movements 1 Exam GEN: Healthy appearing, well-developed, NAD. HEENT: NC/AT; MMM. CV: RRR, no m/r/g. LUNGS: Bibasilar rales. ABD: Tenderness epigastrium/left upper quadrant EXT: skin Warm, well perfused. no rashes. No clubbing, cyanosis, or edema. NEURO: Weakness in all extremities 3 of 5. Unclear if sensation is intact. Cranial nerves 2-12 intact. General Appearance: Alert, Oriented X3, Cooperative, No acute distress, Other (stares and goes into blank periodically//but comes back clera and answers questions) Lungs: Clear to auscultation Cardiovascular: Regular rate, Normal S1, Normal S2 Abdomen: Normal bowel sounds, Soft, No tenderness Musculoskeletal: Normal sensory function, Normal motor function, Other (walks to commode//but declined to lift his legs states feels weak) Neuro: Normal speech, Strength at 5/5 X4 ext, Sensation intact Psych/Mental Status: Mental status NL Medications Current Medications Medications Dose Ordered Sig/Polina Route Start Time Stop Time Status Last Admin Dose Admin Sucralfate 1 gm BID@0600,2200 PO 07/15/24 22:00 07/23/24 05:34 1 GM Gabapentin 300 mg TID PO 07/15/24 14:00 07/23/24 05:34 300 MG Lorazepam 1 mg ONCE PRN IV 07/18/24 00:45 Enteral Nutritional Formula 240 ml BIDWM PO 07/19/24 18:00 07/23/24 08:15 240 ML Acetaminophen 650 mg Q6HP PRN PO 07/19/24 23:15 07/22/24 21:37 650 MG Fluoxetine HCl 10 mg DAILY PO 07/21/24 10:00 07/23/24 10:09 10 MG Enoxaparin Sodium 30 mg DAILY SC 07/21/24 10:00 07/23/24 10:10 30 MG Temazepam 15 mg HSPRN PRN PO 07/20/24 23:30 07/22/24 21:37 15 MG Iron Sucrose 110 ml @ 110 mls/hr DAILY@1200 IV 07/22/24 12:00 07/26/24 12:59 07/22/24 12:59 110 MLS/HR Acetaminophen/ Hydrocodone Bitart 1 tab Q4HP PRN PO 07/21/24 15:00 07/23/24 05:36 1 TAB Famotidine 20 mg Q12HR PO 07/21/24 22:00 07/23/24 10:09 20 MG Ondansetron HCl 4 mg Q4HPRN PRN IV 07/22/24 20:30 Laboratory Results Laboratory Tests 07/22/24 09:49 Urinalysis Test 07/13/24 03:30 Urine Color Light-yellow (Yellow) Urine Clarity Clear (Clear) Urine pH 7.0 (5.0-9.0) Urine Specific [place] 1.012 (1.001-1.035) Urine Protein Trace (Negative) H Urine Ketones Negative (Negative) Urine Blood Negative /uL (Negative) Urine Nitrite Negative (Negative) Urine Bilirubin Negative (Negative) Urine Urobilinogen Normal mg/dL (Negative) Urine Leukocyte Esterase Negative /uL (Negative) Urine RBC 3 /hpf (0 - 3) Urine Microscopic WBC 4 /HPF (0-3) H Urine Squamous Epithelial Cells Few /hpf (<5) Urine Bacteria Few /hpf (None Seen) H Urine Mucus Few (None Seen) Urine Yeast (Budding) Occasional /hpf (None Urine Glucose Normal mg/dL (Normal) Microbiology Microbiology Date/Time Source Procedure Growth Status 07/22/24 11:00 Stool Stool Culture - Preliminary Resulted 07/22/24 11:00 Stool Shiga Toxin I & II - Final Resulted 07/20/24 14:55 Blood Blood Culture - Preliminary NO GROWTH AFTER 48 HOURS OF INCUBATION. Resulted 07/20/24 14:00 Urine - Midstream Clean Catch Urine Culture - Final Complete Labs and/or images reviewed: Labs reviewed by me, Image(s) reviewed by me Assessment/Plan Assessment/Plan 07/23 - 07/23 - since yesterday p.m. patient has been found to having nausea and vomiting. Diarrhea continues although low volume. C diff stool pending. Patient claims to feel weak although is able to be alert and awake. AOx3-4. Complaints she has some brain fatigue. Some darkening of vision. But visual mcbride intact. We will rehydrate with IV fluids today continue p.r.n. antiemetics, with 4-33 diff, other stool studies are negative for Shigella and Campylobacter. We will get KUB to evaluate nausea. We will continue full liquid diet. Plan is to continue IV hydration and p.o. full liquid diet and if C diff is negative we will try some antidiarrheals and if patient continues to improve local home with walker and resume follow up with Oncology. Poor p.o. tolerance due to Constipation and fecal impaction and advanced cancer with mets Dark stools, stool occult blood positive, likely due to gastric cancer Generalized weakness , likely due to cancer but acute gastroenteritis possible, treatment completed, resolved seizure ruled-out, absence seizure ruled out Ruled out acute abdomen Fatigue likely due to cancer Neutrophilia , likely due to cancer Leukocytosis , likely due to cancer Thrombocytopenia Chronic elevated transaminitis and elevated ALP History of acute urinary retention , recurrence possible History of diarrhea and C diff, currently resolved History of anemia Diabetes Hypertension Current gastric carcinoma, currently on chemotherapy Hyperlipidemia - Patient has ongoing diagnosis of cancer which may be advanced. Recently admitted for acute urinary retention requiring Ng which was to see and prior admitted for edema given Lasix and prior to that recently admitted for C diff with completed vancomycin p.o. oral course. Patient complains of pain and weakness and vague symptoms - Bicarb is elevated getting ABG - on admit WBC leukocytosis elevated with neutrophilia, concern for possible infection - platelets are declining 140-122 - CXR normal, TSH normal, ammonia normal, troponins negative, BNP within normal limits. - 07/13 given GI cocktail x1 with some improvement - CT abdomen pelvis: Findings are suggestive of fluid overload. Moderate to large volume diffuse colonic stool. Distended stomach. - no signs of acute abdomen, SBO, bladder retention -CT head 07/15: Benign scan, no significant findings. - MRI brain 07/18 - negative for any acute process - EEG negative for any epileptic episodes or abnormal wave patterns - stool occult blood positive over weekend 07/19- - other stool studies are negative for Shigella and Campylobacter. - There are many stable labs which has been elevated/low in the past, including: LFTs are mildly raised with ALP raised, total protein low, albumin low, calcium carotid chest below normal limit. -today: Continuing IV fluid hydration. Stopped any laxatives. We will continue full liquid diet. Plan is to continue IV hydration and p.o. full liquid diet and if C diff is negative we will try some antidiarrheals and if patient continues to improve local home with walker and resume follow up with Oncology. - We will rehydrate with IV fluids today continue p.r.n. antiemetics - c.diff stool pending - We will get KUB to evaluate nausea. - . Stops bowel regimen with miralax, docusate - stop antibiotic. Prior on on broad-spectrum antibiotics Zosyn, cover gi source. - p.r.n. pain control - sliding scale insulin for diabetes mild, hold p.o. meds - full liquid diet, small portion. - Left arm swelling , will eval for DVT Diet- FLD, small portions. DVT prophylaxis- Lovenox GI prophylaxis- pepcid po bid Med surg DNR DNI Plan discussed with: Patient My Orders Orders - JULIETA YOUNG MD Procedure Category Date Status Time Lt Upper Dvt US 07/22/24 Resulted 14:45 Ondansetron Hcl PHA 07/22/24 In Process (Zofran) 20:30 Complete Blood Count LAB 07/23/24 Logged 09:22 Kub Abdomen Single XY 07/23/24 Logged View 10:00 Lactated Ringer's PHA 07/23/24 Logged 10:00 Date of Service: Jul 23, 2024 Billing Provider: JULIETA YOUNG MD Common Visit Codes: [id number] INP/OBS CARE(HIGH) JULIETA YOUNG MD Jul 23, 2024 10:22
[2024-07-23 10:47] LABS: Hemoglobin 10.3 g/dL (13.5-17.5)
[2024-07-23 10:50] LABS: Hematocrit 32.6 % (41.0-53.0); Mean Corpuscular Hemoglobin 25.6 pg (28.0-32.0); Mean Corpuscular Hgb Conc. 31.5 g/dL (32.0-36.0); Mean Corpuscular Volume 81.2 fL (80.0-100.0); Platelet Count (auto) 163 10^3/uL (140-450); Red Blood Cells 4.01 10^6/uL (4.5-5.90); White Blood Cell 25.3 10^3/uL (4.4-10.8)
[2024-07-23 10:58] LABS: Red Cell Distribution Width 21.8 % (11.8-14.3)
[2024-07-23 10:59] LABS: Basophils % (manual) 0 (0.0-2.0); Blast Cells 0; Eosinophils % (manual) 0 (0-7); Metamyelocytes % 0; Myelocytes % 0; Promyelocytes % 0; Reactive Lymphocytes 0
--- NOTE | 2024-07-23 11:35 | DVH ---
Date: 07/23/2024 10:13 AM Examination: XY KUB ABDOMEN SINGLE VIEW History: nausea Comparison: XY KUB ABDOMEN SINGLE VIEW on DOS: 06/22/24 TECHNIQUE: Frontal views of the abdomen was obtained. FINDINGS: Bowel gas pattern is unremarkable. The lung bases are unremarkable. No acute osseous abnormality identified. IMPRESSION: Nonobstructive bowel gas pattern.
[2024-07-23 12:24] LABS: Band Neutrophils % (manual) 3; Lymphocytes % (manual) 11 (10.0-50.0); Monocytes % (manual) 3 (0-12)
[2024-07-23 12:25] LABS: Anisocytosis Slight; Ovalocytes FEW; Platelet Estimate Adequate
[2024-07-23] MEDS ORDERED: ONDANSETRON ODT 4 MG TAB PO PRN (15:15)
[2024-07-23] MEDS: ONDANSETRON HCL 4 MG/2 ML VIAL IV PRN (15:45)
[2024-07-23] MEDS: MORPHINE SULFATE INJ 2 MG/ml SYRG IM ONE (15:48)
[2024-07-23] MEDS: LACTATED RINGER'S 1,000 ML IV ONE (15:52)
--- NOTE | 2024-07-23 18:06 | DVHPN2 ---
Progress Note Date Seen: Jul 23, 2024 Resident Creating Document: NEREYDA ROJAS RESIDENT Medical Necessity Reason Pt with a Central, PICC or Fol: No Subjective Review of Systems Patient is 64-year-old male with known gastric cancer metastasis, diagnosed gastric adenocarcinoma going through chemotherapy presented to hospital for chief complaint of worsening fatigue, generalized weakness and mild epigastric pain. Before coming to hospital patient had constipation and worsening mental status for the last two weeks. Before coming to hospital patient developed diarrhea which was improving however mental status continued to be worsened. Patient is still has mild abdominal epigastric pain, no nausea or vomiting however had multiple episodes of diarrhea today. Patient is receiving tramadol for pain, no any other symptoms. Last chemotherapy was on 09 July 2024, no plan for surgery. Following with Hematology Oncology in outpatient setting. GI consultation has been done given stool occult blood is positive. No any other new complaints. Past medical history: Metastatic gastric adenocarcinoma, hypertension, hyperlipidemia, diabetes mellitus Medication: On chemotherapy: Float cycle one started on 05/07/2024., received total four cycle, last cycle on 07/09/2024 Surgical history: Underwent EGD on 02/28/2025. Large 7 to 8 cm gastric mass in the for this which was friable polypoid with central ulceration with oozing and with increased bleeding from biopsy sites. No colonoscopy. Patient is seen and examined at bedside. Continued to have severe generalized weakness. Going through PT. . Objective vital signs Vital Sign Date Time Temp Pulse Resp B/P (MAP) Pulse Ox O2 Delivery O2 Flow Rate FiO2 07/23/24 17:00 97.8 89 17 138/81 (100) 100 97.8 07/22/24 20:00 Room Air* 0 21 Total Intake and Output 07/22/24 07/22/24 07/23/24 15:00 23:00 07:00 Intake Total 110 ml 250 ml Balance 110 ml 250 ml medications Current Medications Medications Dose Ordered Sig/Polina Route Start Time Stop Time Status Last Admin Dose Admin Sucralfate 1 gm BID@0600,2200 PO 07/15/24 22:00 07/23/24 05:34 1 GM Gabapentin 300 mg TID PO 07/15/24 14:00 07/23/24 15:45 300 MG Lorazepam 1 mg ONCE PRN IV 07/18/24 00:45 Enteral Nutritional Formula 240 ml BIDWM PO 07/19/24 18:00 07/23/24 08:15 240 ML Acetaminophen 650 mg Q6HP PRN PO 07/19/24 23:15 07/22/24 21:37 650 MG Fluoxetine HCl 10 mg DAILY PO 07/21/24 10:00 07/23/24 10:09 10 MG Enoxaparin Sodium 30 mg DAILY SC 07/21/24 10:00 07/23/24 10:10 30 MG Temazepam 15 mg HSPRN PRN PO 07/20/24 23:30 07/22/24 21:37 15 MG Iron Sucrose 110 ml @ 110 mls/hr DAILY@1200 IV 07/22/24 12:00 07/26/24 12:59 07/23/24 17:58 110 MLS/HR Acetaminophen/ Hydrocodone Bitart 1 tab Q4HP PRN PO 07/21/24 15:00 07/23/24 05:36 1 TAB Famotidine 20 mg Q12HR PO 07/21/24 22:00 07/23/24 10:09 20 MG Ondansetron HCl 4 mg Q4HPRN PRN IV 07/22/24 20:30 07/23/24 15:45 4 MG Ondansetron HCl 4 mg Q4HP PRN PO 07/23/24 15:15 Morphine Sulfate 15 mg Q12HR PO 07/23/24 22:00 Examination General Appearance: Alert, not oriented to time place and person. Answering question, not comprehensible. Head Exam: Normal inspection Neck Exam: Normal inspection. Non-tender. Normal alignment Pulmonary/Respiratory: Chest non-tender. Clear bilateral breath sounds Cardiovascular/Chest: Regular rate and rhythm. No murmurs. No JVD. Peripheral Pulses: 2+ Radial (R). 2+ Radial (L). 2+ Pedal (R). 2+ Pedal (L) Abdominal Exam: Normal bowel sounds. Soft. Nontender. Ankle Exam: Negative ankle edema Lower extremities: Negative lower extremity edema Neuro/Mental Status: A&O x1 laboratory and microbiology Laboratory Tests 07/23/24 10:04 07/22/24 09:49 Test 07/22/24 09:49 Range/Units Serum Glucose 101 74-106 mg/dL Microbiology Date/Time Source Procedure Growth Status 07/22/24 11:00 Stool Stool Culture - Preliminary Resulted 07/22/24 11:00 Stool Shiga Toxin I & II - Final Resulted 07/20/24 14:55 Blood Blood Culture - Preliminary NO GROWTH AFTER 72 HOURS OF INCUBATION. Resulted 07/20/24 14:00 Urine - Midstream Clean Catch Urine Culture - Final Complete Problem List/Assessment/Plan Problem List/Assessment/Plan Stool occult positive Iron-deficiency anemia Metastatic gastric adenocarcinoma Possible delirium Acute diarrhea ? Rule out C diff Diabetes mellitus type Hypertension Dyslipidemia Leukocytosis Plan/recommendation Dr. Noe -C diff negetive, pending stool culture. -continue IV Protonix 40 mg daily -hemoglobin stable, no active GI bleed. No acute GI intervention needed at this point. -IV iron for iron-deficiency anemia -IV antibiotic as per primary team. Downgraded antibiotics if necessary. -Hematology-Oncology: Last chemotherapy on 07/09/2024, following in outpatient setting for another PET/CT scan. -physical therapy -poor prognosis -we will continue following the patient. Plan discussed with: Patient, Daughter, Other (RN) Dietary Evaluation Review Recommendations by RD: Protein Supplementation Comments: 1) Initiate Glucerna bid 2) Encourage PO intake 3) Continue Zofran prn Expected Outcomes/Goals: 1) appetite and labs to improve 2) f/u in 5 days NEREYDA ROJAS RESIDENT Jul 23, 2024 18:06
[2024-07-23] MEDS: MORPHINE SULF 15mg ER tab PO SCH (21:42)
[2024-07-24] VITALS (8 sets, daily range): BP systolic 124–143; BP diastolic 75–82; PULSE 89–96; RESP 16–20; TEMP 97.3–99; O2SAT 97–100
--- NOTE | 2024-07-24 09:32 | DVHPN2 ---
Progress Note - Dictate Date Seen: Jul 24, 2024 Has the PT tested + for MRSA If YES, has PT been informed?: Yes Medical Necessity Reason Pt with a Central, PICC or Fol: No Subjective Patient is feeling better. Occasionally has nausea and vomiting and some abdominal pains. Tramadol helps. He takes Compazine and Zofran at home. Has occasional diarrhea and takes Lomotil vital signs Vital Sign Date Time Temp Pulse Resp B/P (MAP) Pulse Ox O2 Delivery O2 Flow Rate FiO2 07/24/24 08:39 97.7 91 20 126/75 (92) 98 97.7 07/24/24 08:11 Room Air* 0 21 Total Intake and Output 07/23/24 07/23/24 07/24/24 15:00 23:00 07:00 Intake Total 300 ml Balance 300 ml medications Current Medications Medications Dose Ordered Sig/Polina Route Start Time Stop Time Status Last Admin Dose Admin Sucralfate 1 gm BID@0600,2200 PO 07/15/24 22:00 07/24/24 05:32 1 GM Gabapentin 300 mg TID PO 07/15/24 14:00 07/24/24 05:32 300 MG Lorazepam 1 mg ONCE PRN IV 07/18/24 00:45 Enteral Nutritional Formula 240 ml BIDWM PO 07/19/24 18:00 07/24/24 08:11 240 ML Acetaminophen 650 mg Q6HP PRN PO 07/19/24 23:15 07/22/24 21:37 650 MG Fluoxetine HCl 10 mg DAILY PO 07/21/24 10:00 07/23/24 10:09 10 MG Enoxaparin Sodium 30 mg DAILY SC 07/21/24 10:00 07/23/24 10:10 30 MG Temazepam 15 mg HSPRN PRN PO 07/20/24 23:30 07/22/24 21:37 15 MG Iron Sucrose 110 ml @ 110 mls/hr DAILY@1200 IV 07/22/24 12:00 07/26/24 12:59 07/23/24 17:58 110 MLS/HR Acetaminophen/ Hydrocodone Bitart 1 tab Q4HP PRN PO 07/21/24 15:00 07/23/24 05:36 1 TAB Famotidine 20 mg Q12HR PO 07/21/24 22:00 07/23/24 21:41 20 MG Ondansetron HCl 4 mg Q4HPRN PRN IV 07/22/24 20:30 07/24/24 08:11 4 MG Ondansetron HCl 4 mg Q4HP PRN PO 07/23/24 15:15 Morphine Sulfate 15 mg Q12HR PO 07/23/24 22:00 07/23/24 21:42 15 MG objective HEAD AND NECK: Unremarkable. No neck nodes or masses. Conjunctiva: Unremarkable. No mucosal hemorrhage. CHEST: Chest wall, no tenderness. LUNGS: Clear. CARDIOVASCULAR: Regular sinus rhythm. No murmurs or gallops. ABDOMEN: No organomegaly, tenderness or ascites. Bowel sounds present. Somewhat sensitive to touch in the epigastric area LYMPHATICS: No significant lymphadenopathy. SKIN: Unremarkable for any petechiae, purpura, or ecchymosis. Psych: No abnormalities Available data reviewed laboratory and microbiology Laboratory Tests 07/23/24 10:04 07/22/24 09:49 Test 07/22/24 09:49 Range/Units Serum Glucose 101 74-106 mg/dL Assessment/Plan 1.64 years old gentleman with a history of gastric adenocarcinoma with PET scan showing hypermetabolic mass in the gastric fundus and multiple moderate to intensely hypermetabolic perigastric lymph nodes measuring up to 4.5 cm and mildly hypermetabolic bilateral axillary lymph nodes with a left axillary lymph node measuring 1.4 cm, nonspecific but could be concern for metastatic disease, asymmetrically prominent slightly hypermetabolic left supraclavicular lymph nodes while nonspecific but could be metastatic Status post four cycles of chemotherapy with FLOT and 1st treatment on 05/07/2024 and the 4th treatment on 07/09/2024 Admitted with generalized weakness an episode of nonresponsiveness and has gotten better was having loose bowel movements which are improving Waiting for a PET-CT as an outpatient and the present CT of the abdomen pelvis without contrast does not show any lymph nodes CT abdomen and pelvis without contrast on 07/13/2024 showed suggestion of fluid overload and diffuse large colonic stool Chest x-ray was unremarkable Is renal function and liver functions are normal except the total protein is 4.3 albumin 2.4 White count is 14.8, platelets 169 stool guaiac is positive, hemoglobin 9.8 Brain MRI without contrast was unremarkable He has been evaluated by the neurologist for brief episode of nonresponsiveness 2.Diabetes 3. Hypertension 4. Hyperlipidemia 5. Diarrhea no C. difficile and it has resolved Plan: His PET scan as an outpatient is being arranged Continue his tramadol and Zofran/Compazine and Lomotil as needed Patient wishes to go home and I will follow him after the PET/CT Dietary Evaluation Review Recommendations by RD: Protein Supplementation Comments: 1) Initiate Glucerna bid 2) Encourage PO intake 3) Continue Zofran prn Expected Outcomes/Goals: 1) appetite and labs to improve 2) f/u in 5 days Plan discussed with: Patient, Son MAXIMILIANOSOLIS MD Jul 24, 2024 09:32
--- NOTE | 2024-07-24 10:26 | DVHPN2 ---
Progress Note Date Seen: Jul 24, 2024 Resident Creating Document: NEREYDA ROJAS RESIDENT Has the PT tested + for MRSA If YES, has PT been informed?: Yes Medical Necessity Reason Pt with a Central, PICC or Fol: No Subjective Review of Systems Patient is 64-year-old male with known gastric cancer metastasis, diagnosed gastric adenocarcinoma going through chemotherapy presented to hospital for chief complaint of worsening fatigue, generalized weakness and mild epigastric pain. Before coming to hospital patient had constipation and worsening mental status for the last two weeks. Before coming to hospital patient developed diarrhea which was improving however mental status continued to be worsened. Patient is still has mild abdominal epigastric pain, no nausea or vomiting however had multiple episodes of diarrhea today. Patient is receiving tramadol for pain, no any other symptoms. Last chemotherapy was on 09 July 2024, no plan for surgery. Following with Hematology Oncology in outpatient setting. GI consultation has been done given stool occult blood is positive. No any other new complaints. Past medical history: Metastatic gastric adenocarcinoma, hypertension, hyperlipidemia, diabetes mellitus Medication: On chemotherapy: Float cycle one started on 05/07/2024., received total four cycle, last cycle on 07/09/2024 Surgical history: Underwent EGD on 02/28/2025. Large 7 to 8 cm gastric mass in the for this which was friable polypoid with central ulceration with oozing and with increased bleeding from biopsy sites. No colonoscopy. Patient is seen and examined at bedside. Tolerating diet, getting PT, has mild generalized weakness Objective vital signs Vital Sign Date Time Temp Pulse Resp B/P (MAP) Pulse Ox O2 Delivery O2 Flow Rate FiO2 07/24/24 08:39 97.7 91 20 126/75 (92) 98 97.7 07/24/24 08:11 Room Air* 0 21 Total Intake and Output 07/23/24 07/23/24 07/24/24 15:00 23:00 07:00 Intake Total 300 ml Balance 300 ml medications Current Medications Medications Dose Ordered Sig/Polina Route Start Time Stop Time Status Last Admin Dose Admin Sucralfate 1 gm BID@0600,2200 PO 07/15/24 22:00 07/24/24 05:32 1 GM Gabapentin 300 mg TID PO 07/15/24 14:00 07/24/24 05:32 300 MG Lorazepam 1 mg ONCE PRN IV 07/18/24 00:45 Enteral Nutritional Formula 240 ml BIDWM PO 07/19/24 18:00 07/24/24 08:11 240 ML Acetaminophen 650 mg Q6HP PRN PO 07/19/24 23:15 07/22/24 21:37 650 MG Fluoxetine HCl 10 mg DAILY PO 07/21/24 10:00 07/23/24 10:09 10 MG Enoxaparin Sodium 30 mg DAILY SC 07/21/24 10:00 07/23/24 10:10 30 MG Temazepam 15 mg HSPRN PRN PO 07/20/24 23:30 07/22/24 21:37 15 MG Iron Sucrose 110 ml @ 110 mls/hr DAILY@1200 IV 07/22/24 12:00 07/26/24 12:59 07/23/24 17:58 110 MLS/HR Acetaminophen/ Hydrocodone Bitart 1 tab Q4HP PRN PO 07/21/24 15:00 07/23/24 05:36 1 TAB Famotidine 20 mg Q12HR PO 07/21/24 22:00 07/23/24 21:41 20 MG Ondansetron HCl 4 mg Q4HPRN PRN IV 07/22/24 20:30 07/24/24 08:11 4 MG Ondansetron HCl 4 mg Q4HP PRN PO 07/23/24 15:15 Morphine Sulfate 15 mg Q12HR PO 07/23/24 22:00 07/23/24 21:42 15 MG Examination General Appearance: Alert, Answering question Head Exam: Normal inspection Neck Exam: Normal inspection. Non-tender. Normal alignment Pulmonary/Respiratory: Chest non-tender. Clear bilateral breath sounds Cardiovascular/Chest: Regular rate and rhythm. No murmurs. No JVD. Peripheral Pulses: 2+ Radial (R). 2+ Radial (L). 2+ Pedal (R). 2+ Pedal (L) Abdominal Exam: Normal bowel sounds. Soft. Nontender. Ankle Exam: Negative ankle edema Lower extremities: Negative lower extremity edema Neuro/Mental Status: A&O x3 laboratory and microbiology Laboratory Tests 07/23/24 10:04 07/22/24 09:49 Test 07/22/24 09:49 Range/Units Serum Glucose 101 74-106 mg/dL Microbiology Date/Time Source Procedure Growth Status 07/22/24 11:00 Stool Stool Culture - Preliminary Resulted 07/22/24 11:00 Stool Shiga Toxin I & II - Final Resulted 07/20/24 14:55 Blood Blood Culture - Preliminary NO GROWTH AFTER 72 HOURS OF INCUBATION. Resulted 07/20/24 14:00 Urine - Midstream Clean Catch Urine Culture - Final Complete Problem List/Assessment/Plan Problem List/Assessment/Plan Stool occult positive likely due to gastric adenocarcinoma Iron-deficiency anemia Metastatic gastric adenocarcinoma Possible delirium Acute diarrhea ? Rule out C diff Diabetes mellitus type Hypertension Dyslipidemia Leukocytosis Plan/recommendation Dr. Noe -C diff and stool culture negative . -continue IV Protonix 40 mg daily -hemoglobin stable, no active GI bleed. No acute GI intervention needed at this point. -IV iron for iron-deficiency anemia -IV antibiotic as per primary team. Downgraded antibiotics if necessary. -Hematology-Oncology: Last chemotherapy on 07/09/2024, following in outpatient setting for another PET/CT scan. -physical therapy -poor prognosis -we will continue following the patient. Plan discussed with: Patient, Daughter, Other (RN) Dietary Evaluation Review Recommendations by RD: Protein Supplementation Comments: 1) Initiate Glucerna bid 2) Encourage PO intake 3) Continue Zofran prn Expected Outcomes/Goals: 1) appetite and labs to improve 2) f/u in 5 days NEREYDA ROJAS RESIDENT Jul 24, 2024 10:26
[2024-07-24] MEDS ORDERED: MORP1TAB12 PO (14:21)
[2024-07-24] MEDS ORDERED: ZOFR4T PO (14:21)
--- NOTE | 2024-07-24 14:28 | DVHDS2 ---
Discharge Summary Date of Admission Jul 13, 2024 at 03:42 Date of Discharge: Jul 24, 2024 Labs/Diagnostic Data: Laboratory Results Test 07/23/24 10:04 07/22/24 11:00 07/22/24 09:49 07/21/24 16:20 White Blood Count 25.3 10^3/uL (4.4-10.8) Red Blood Count 4.01 10^6/uL (4.5-5.90) Hemoglobin 10.3 g/dL (13.5-17.5) Hematocrit 32.6 % (41.0-53.0) Mean Corpuscular Volume 81.2 fL (80.0-100.0) Mean Corpuscular Hemoglobin 25.6 pg (28.0-32.0) Mean Corpuscular Hemoglobin Concent 31.5 g/dL (32.0-36.0) Red Cell Distribution Width 21.8 % (11.8-14.3) Platelet Count 163 10^3/uL (140-450) Mean Platelet Volume 7.6 fL (6.9-10.8) Neutrophils (%) (Auto) % (37.0-80.0) Lymphocytes (%) (Auto) % (10.0-50.0) Monocytes (%) (Auto) % (0.0-12.0) Basophils (%) (Auto) % (0.0-2.0) Neutrophils # (Auto) 10 ^3/uL (1.6-8.6) Lymphocytes # (Auto) 10 ^3/uL (0.4-5.4) Monocytes # (Auto) 10 ^3/uL (0-1.3) Differential Total Cells Counted 100.0 (100) Neutrophils % (Manual) 83 (37.0-80.0) Band Neutrophils % (Manual) 3 Lymphocytes % (Manual) 11 (10.0-50.0) Monocytes % (Manual) 3 (0-12) Eosinophils % (Manual) 0 (0-7) Basophils % (Manual) 0 (0.0-2.0) Metamyelocytes % (manual) 0 Myelocytes % (Manual) 0 Promyelocytes % (Manual) 0 Blast Cells % (Manual) 0 Reactive Lymphocytes 0 Platelet Estimate Adequate Anisocytosis (manual) Slight Ovalocytes Few Schistocytes Few Stool for White Cells None seen Hypochromasia (manual) Slight Microcytosis Slight Tear Drop Cells Few Sodium Level 136 mmol/L (136-145) Potassium Level 3.5 mmol/L (3.5-5.1) Chloride Level 106 mmol/L (98-107) Carbon Dioxide Level 25 mmol/L (20-31) Anion Gap 5 (5-15) Blood Urea Nitrogen 11 mg/dL (9-23) Creatinine 0.55 mg/dL (0.700-1.30) Glomerular Filtration Rate Calc 112 mL/min (>90) BUN/Creatinine Ratio 20.0 (10.0-20.0) Serum Glucose 101 mg/dL (74-106) Calcium Level 7.5 mg/dL (8.7-10.4) Eosinophils (%) (Auto) 0.1 % (0.0-7.0) Eosinophils # (Auto) 0 10 ^3/uL (0-0.8) Basophils # (Auto) 0.1 10 ^3/uL (0-0.2) Nucleated Red Blood Cells 0.2 % Test 07/20/24 12:52 07/20/24 03:44 07/19/24 21:27 07/17/24 10:48 POC Glucose 71 mg/dl (70-106) Total Bilirubin 0.3 mg/dL (0.2-1.0) Aspartate Amino Transferase (AST) 34 U/L (13-40) Alanine Aminotransferase (ALT) 14 U/L (7-40) Alkaline Phosphatase 127 U/L (46-116) Total Protein 4.3 g/dL (5.7-8.2) Albumin 2.4 g/dL (3.2-4.8) Stool Occult Blood Positive (Negative) Stool Occult Blood Sample #3 (Negative) Phosphorus Level 1.4 mg/dL (2.4-5.1) Magnesium Level 1.7 mg/dL (1.6-2.6) Prolactin 4.81 ng/mL (2.1-17.7) Test 07/13/24 18:28 07/13/24 13:42 07/13/24 04:26 07/13/24 03:30 Blood Gas Specimen Type Arterial Blood Gas Sample Site Left radial Blood Gas Patient Temperature 37.0 Arterial Blood Date Drawn [id number] Arterial Blood pH 7.474 (7.350-7.450) Arterial Blood Partial Pressure CO2 40.1 mmHg (35.0-48.0) Arterial Blood Partial Pressure O2 63.2 mmHg (83.0-108.0) Arterial Blood HCO3 28.8 mmol/L (21.0-28.0) Arterial Blood Oxygen Saturation 92.1 % (94.0-98.0) Arterial Blood Base Excess 4.8 mmol/L (-2.0-3.0) Arterial Blood Oxyhemoglobin 90.5 % (94.0-98.0) Arterial Blood Carboxyhemoglobin 0.8 % (0.5-1.5) Arterial Blood Methemoglobin 0.9 % (0.0-1.5) [place] Test Yes Blood Gas Total Hemoglobin 9.90 g/dL (13.5-17.5) Blood Gas Modality Room air FiO2 % 21.0 Ammonia 21 umol/L (11-32) Thyroid Stimulating Hormone (TSH) 2.87 uIU/mL (0.55-4.78) Urine Color Light-yellow (Yellow) Urine Clarity Clear (Clear) Urine pH 7.0 (5.0-9.0) Urine Specific [place] 1.012 (1.001-1.035) Urine Protein Trace (Negative) Urine Ketones Negative (Negative) Urine Blood Negative /uL (Negative) Urine Nitrite Negative (Negative) Urine Bilirubin Negative (Negative) Urine Urobilinogen Normal mg/dL (Negative) Urine Leukocyte Esterase Negative /uL (Negative) Urine RBC 3 /hpf (0 - 3) Urine Microscopic WBC 4 /HPF (0-3) Urine Squamous Epithelial Cells Few /hpf (<5) Urine Bacteria Few /hpf (None Seen) Urine Mucus Few (None Seen) Urine Yeast (Budding) Occasional /hpf (None Urine Glucose Normal mg/dL (Normal) Test 07/12/24 21:00 07/12/24 19:54 Troponin I High Sensitivity < 3 ng/L (</=54) Prothrombin Time 10.9 sec (9.3-11.8) Prothrombin Time INR 1.03 (0.9-1.15) Activated Partial Thromboplast Time 25.6 SEC (24.5-34.5) B-Type Natriuretic Peptide 19.37 pg/mL (0-100) Other Laboratory Tests 07/23/24 10:04 07/22/24 09:49 Brief Hx & Hospital Course: diagnosis: Poor p.o. tolerance due to Constipation and fecal impaction and advanced cancer with mets, resolving intolerable epigastric pain due to gastric carcinoma, tolerable with orals cdiff ruled out, infectious diarrhea ruled out Dark stools, stool occult blood positive, likely due to gastric cancer Generalized weakness , likely due to cancer but acute gastroenteritis possible, treatment completed, resolved left superficial cephalic venous thrombosis, inoperable, anticoagulation contraindicated due to GI bleed seizure ruled-out, absence seizure ruled out Ruled out acute abdomen Fatigue likely due to cancer Neutrophilia , likely due to cancer Leukocytosis , likely due to cancer Thrombocytopenia Chronic elevated transaminitis and elevated ALP History of acute urinary retention , recurrence possible History of diarrhea and C. diff, currently resolved History of anemia Diabetes Hypertension Current gastric carcinoma, currently on chemotherapy Hyperlipidemia discharge plans: - continue carafate, protonix daily - zofran prn for nausea. hold off compazine, contact PCP if needed. - lidocaine suspension po for abdominal pain - full liquid diet - for diarrhea, ok to take 1st line imodium (if fail to resolve x2, then imodium) - for pain, take ms contin 2x/day and if worsening pain take norco 10 3x/day as needed - ambulation with walker only and with assisstance, home PT continue - follow-up with PCP and oncologist to continue care - resume other home medications. Condition at Discharge: Guarded Final Diagnosis/Problems List Poor p.o. tolerance due to Constipation and fecal impaction and advanced cancer with mets, resolving intolerable epigastric pain due to gastric carcinoma, tolerable with orals cdiff ruled out, infectious diarrhea ruled out Dark stools, stool occult blood positive, likely due to gastric cancer Generalized weakness , likely due to cancer but acute gastroenteritis possible, treatment completed, resolved left superficial cephalic venous thrombosis, inoperable, anticoagulation contraindicated due to GI bleed seizure ruled-out, absence seizure ruled out Ruled out acute abdomen Fatigue likely due to cancer Neutrophilia , likely due to cancer Leukocytosis , likely due to cancer Thrombocytopenia Chronic elevated transaminitis and elevated ALP History of acute urinary retention , recurrence possible History of diarrhea and C. diff, currently resolved History of anemia Diabetes Hypertension Current gastric carcinoma, currently on chemotherapy Hyperlipidemia Discharge Disposition: Home with Health Services Discharge Instruct/Medications Diet: See Comment Diet comment: full liquid diet Activity: Light activity Activity comment: ambulation with walker only and with assistance Follow Up/Referral: pcp, oncology Medications: below Discharge Statement: "Patient was advised to return to the ER or call 911 if any headaches, dizziness, shortness of breath, chest pain, abdominal pain, bleeding, fevers, or worsening of medical condition. Patient was counseled about treatment plan, medications, possible side effects, patientverbalized understanding. All questions were answered to the best of my ability. This discharge took greater then 30 minutes in planning, reviewing documentation, counseling the patient, and discussing with other team members." Date of Service: Jul 24, 2024 Billing Provider: JULIETA YOUNG MD Common Visit Codes: 63746-AWO/OBS DISCH DAY >30min JULIETA YOUNG MD Jul 24, 2024 14:28
[2024-07-24] MEDS ORDERED: LOPERAMIDE HCL 2 MG CAP/TAB PO PRN (14:30)
[2024-07-24] MEDS ORDERED: D5W/SOD CHLO 0.9% 1,000 ML IV SCH (15:00)
[2024-07-24] MEDS: D5W/SOD CHL 0.45% 1,000 ML IV SCH (16:36)
[2024-07-24] MEDS: LOPERAMIDE HCL 2 MG CAP/TAB PO ONE (16:36)
[2024-07-24] MEDS ORDERED: LIDO2SOL26 MT (17:26)
--- NOTE | 2024-07-24 18:13 | DVHPN2 ---
Subjective update 07/24 07/13-patient is seen in ED bed 9, complaining of epigastric/subxiphoid/left upper quadrant pain, there is some left upper quadrant tender to palpation/epigastrium tender to palpation/xiphoid tender to palpation. Bowel sounds normal, lung sounds normal. No symptoms of nausea and vomiting or diarrhea. Unclear if patient has decreased p.o. intake. Patient has ongoing diagnosis of cancer which may be advanced. Recently admitted for acute urinary retention requiring Ng which was to see and prior admitted for edema given Lasix and prior to that recently admitted for C diff with completed vancomycin p.o. oral course. Patient complains of pain and weakness and vague symptoms. Bicarb is elevated getting ABG, on admit WBC leukocytosis elevated with neutrophilia, concern for possible infection; platelets are declining 140-122. On workup is largely benign CXR normal, TSH normal, ammonia normal, troponins negative, BNP within normal limits,. There are many stable labs which has been elevated/low in the past, including: LFTs are mildly raised with ALP raised, total protein low, albumin low, calcium carotid chest below normal limit. Unclear what is the cause of pain and weakness, we will get CT abdomen to rule out any acute causes. Patient was multiple readmit for multiple different primary issues. Prognosis very poor. 07/14 - lab workup for weakness largely insignificant. CT abdomen with no acute findings but does show large stool burden consistent with high-grade constipation. Patient is feeling a little improved we will try bowel regimen and enema today. Patient was having poor p.o. tolerance likely due to constipation. We will keep patient on full liquid diet. Anticipate 1 more day to improve patient's impaction. Plan today for enema, lactulose, docusate, full liquid diet. 07/15-patient is in pain again since last night. Pain is epigastric corresponding to cancer. Are as above gastric ulcer from NSAIDs. Patient was starts becoming more lethargic and has episodes of nonresponsiveness with some concern of apnea. Patient was given a Toradol and regained some consciousness. Had a family discussion with goals of care and patient decides to be DNR DNI after confirming patient has decision-making capacity A&O times 3-4. Patient discussed with Oncology with plan to discuss hospice an upcoming appointment on Sunday07/21/2024. Given patient's worsening status over the past24 hours, discussion has had with patient's son about hospice with goal to control pain. We will give time to family to make decisions and continue to monitor patient., we will convert. DNR DNI, continue laxatives, continue pain control while avoiding IV purulence which can cause worsening respiratory depression given patient does have already episodes of hypopnea. 07/16 patient feeling improved this morning, upon the bedside. Family is giving him home cooked food which he is enjoying. Initially ready for discharge. Paged at afternoon with complaint of patient acute onset nausea and vomiting. Patient is lethargic again after emesis. Antiemetics given and family discussion had with plan to give more IV fluids clear liquid diet in small portions only and continue pain control. Likely DC tomorrow with close oncology follow up outpatient 07/17-this a.m. patient was called another code assist, he has another episode of staring into space, unresponsive but vitals stable and starts to respond again after a few seconds. Concern for absence seizures, neurology consulted pending prolactin. Patient continues to be in pain, weak, minimal p.o. tolerance. Patient does not seem to be improving and had vomited his pain was last night. Poor prognosis. Family still appears resistant to hospice. 07/18 - more awake alert. tolerating po. informed to intake small, freq amounts. neurology onboard wants to r/o absence seizures. EEG today. 07/21 - EEG and MRI negative, neurology work-uop negative. over weekend patient has dark stools, stool occult blood positive, this is expected as patient already has gastric carcinoma. The patient continues to have loose stools which is preferred over constipation which is primarily recent outpatient admission. The patient feels improved after IV fluids every a.m. and shortness O tolerate solid p.o. intake which then results in severe pain which then results in delirium and being bed-bound status. PT evaluated this a.m. when patient has been on pain and unable to get out of bed. In prior PT evaluation the patient has been doing well and can do well with front wheel walker. Patient and his family are verses sent to hospice discussions and believe the patient can improve based on oncology advice for ongoing treatment with PET scan and chemo. We will discuss with Oncology. Likely poor prognosis. We will give further IV fluids, stop IV antibiotics, resume pain control, trial GI cocktail, restart p.r.n. Imodium, strict full liquid diet only, discussed with Oncology, continue treat symptoms and plan to discharge med feeling symptomatically improved with home walker and home PT, tomorrow. 07/22 - the patient arousable this am. Patient remains weak and minimal verbal. Continues to can be abdominal pain. Family and patient remains resistant to hospice. GI on board. Pending C diff. we will hold off any antidiarrheals until C diff confirmed negative, p.r.n. Imodium was canceled and none was given.. WBCs remain elevated. Diarrhea resumes. Continuing IV fluid hydration. Stopped any laxatives. We will continue full liquid diet. Plan is to continue IV hydration and p.o. full liquid diet and if C diff is negative we will try some antidiarrheals and if patient continues to improve local home with walker and resume follow up with Oncology. 07/23 - since yesterday p.m. patient has been found to having nausea and vomiting. Diarrhea continues although low volume. C diff stool pending. Patient claims to feel weak although is able to be alert and awake. AOx3-4. Complaints she has some brain fatigue. Some darkening of vision. But visual mcbride intact. We will rehydrate with IV fluids today continue p.r.n. antiemetics, with 4-33 diff, other stool studies are negative for Shigella and Campylobacter. We will get KUB to evaluate nausea. 07/24: Continuing IV fluid hydration. start laxatives as c diff negative. discharge cancelled d/t still po intolerant, weak and unable to ambulate. will get CT abd, more ivf, continue anti-emetics. continue FLD. if patient continues to improve local home with walker and resume follow up with Oncology.. need hospital bed. Reviewed: H&P Changes from previous H/P or p: No Changes General: Per HPI Objective Vitals Vital Signs Date Time Temp Pulse Resp B/P (MAP) Pulse Ox O2 Delivery O2 Flow Rate FiO2 07/24/24 17:04 98.5 94 20 97 07/24/24 16:57 129/79 (96) 07/24/24 08:11 Room Air* 0 21 Intake/Output Intake and Output 07/24/24 07:00 Intake Total 300 ml Balance 300 ml Intake Oral 300 ml # Voids 2 # Bowel Movements 2 Exam GEN: Healthy appearing, well-developed, NAD. HEENT: NC/AT; MMM. CV: RRR, no m/r/g. LUNGS: Bibasilar rales. ABD: Tenderness epigastrium/left upper quadrant EXT: skin Warm, well perfused. no rashes. No clubbing, cyanosis, or edema. NEURO: Weakness in all extremities 3 of 5. Unclear if sensation is intact. Cranial nerves 2-12 intact. General Appearance: Alert, Oriented X3, Cooperative, No acute distress, Other (stares and goes into blank periodically//but comes back clera and answers questions) Lungs: Clear to auscultation Cardiovascular: Regular rate, Normal S1, Normal S2 Abdomen: Normal bowel sounds, Soft, No tenderness Musculoskeletal: Normal sensory function, Normal motor function, Other (walks to commode//but declined to lift his legs states feels weak) Neuro: Normal speech, Strength at 5/5 X4 ext, Sensation intact Psych/Mental Status: Mental status NL Medications Current Medications Medications Dose Ordered Sig/Polina Route Start Time Stop Time Status Last Admin Dose Admin Sucralfate 1 gm BID@0600,2200 PO 07/15/24 22:00 07/24/24 05:32 1 GM Gabapentin 300 mg TID PO 07/15/24 14:00 07/24/24 16:35 300 MG Lorazepam 1 mg ONCE PRN IV 07/18/24 00:45 Enteral Nutritional Formula 240 ml BIDWM PO 07/19/24 18:00 07/24/24 08:11 240 ML Acetaminophen 650 mg Q6HP PRN PO 07/19/24 23:15 07/22/24 21:37 650 MG Fluoxetine HCl 10 mg DAILY PO 07/21/24 10:00 07/24/24 16:35 10 MG Enoxaparin Sodium 30 mg DAILY SC 07/21/24 10:00 07/24/24 11:30 30 MG Temazepam 15 mg HSPRN PRN PO 07/20/24 23:30 07/22/24 21:37 15 MG Iron Sucrose 110 ml @ 110 mls/hr DAILY@1200 IV 07/22/24 12:00 07/26/24 12:59 07/24/24 11:29 110 MLS/HR Acetaminophen/ Hydrocodone Bitart 1 tab Q4HP PRN PO 07/21/24 15:00 07/23/24 05:36 1 TAB Famotidine 20 mg Q12HR PO 07/21/24 22:00 07/24/24 11:29 20 MG Ondansetron HCl 4 mg Q4HP PRN PO 07/23/24 15:15 Morphine Sulfate 15 mg Q12HR PO 07/23/24 22:00 07/24/24 11:34 15 MG Loperamide HCl 2 mg PRN PRN PO 07/24/24 14:30 Dextrose/Sodium Chloride 1,000 ml @ 100 mls/hr Q10H IV 07/24/24 15:00 Cancel Dextrose/Sodium Chloride 1,000 ml @ 100 mls/hr Q10H IV 07/24/24 15:30 07/24/24 16:36 100 MLS/HR Laboratory Results Laboratory Tests 07/22/24 09:49 07/23/24 10:04 Urinalysis Test 07/13/24 03:30 Urine Color Light-yellow (Yellow) Urine Clarity Clear (Clear) Urine pH 7.0 (5.0-9.0) Urine Specific [place] 1.012 (1.001-1.035) Urine Protein Trace (Negative) H Urine Ketones Negative (Negative) Urine Blood Negative /uL (Negative) Urine Nitrite Negative (Negative) Urine Bilirubin Negative (Negative) Urine Urobilinogen Normal mg/dL (Negative) Urine Leukocyte Esterase Negative /uL (Negative) Urine RBC 3 /hpf (0 - 3) Urine Microscopic WBC 4 /HPF (0-3) H Urine Squamous Epithelial Cells Few /hpf (<5) Urine Bacteria Few /hpf (None Seen) H Urine Mucus Few (None Seen) Urine Yeast (Budding) Occasional /hpf (None Urine Glucose Normal mg/dL (Normal) Microbiology Microbiology Date/Time Source Procedure Growth Status 07/22/24 11:00 Stool Stool Culture - Preliminary Resulted 07/22/24 11:00 Stool Shiga Toxin I & II - Final Resulted 07/20/24 14:55 Blood Blood Culture - Preliminary NO GROWTH AFTER 72 HOURS OF INCUBATION. Resulted 07/20/24 14:00 Urine - Midstream Clean Catch Urine Culture - Final Complete Labs and/or images reviewed: Labs reviewed by me, Image(s) reviewed by me Assessment/Plan Assessment/Plan -today 07/24: Continuing IV fluid hydration. start laxatives as c diff negative. discharge cancelled d/t still po intolerant, weak and unable to ambulate. will get CT abd, more ivf, continue anti-emetics. continue FLD. if patient continues to improve local home with walker and resume follow up with Oncology.. need hospital bed. We will continue full liquid diet. Plan is to continue IV hydration and p.o. full liquid diet and if C diff is negative we will try some antidiarrheals and if patient continues to improve local home with walker and resume follow up with Oncology. diagnosis: Poor p.o. tolerance due to Constipation and fecal impaction and advanced cancer with mets, resolving intolerable epigastric pain due to gastric carcinoma, tolerable with orals cdiff ruled out, infectious diarrhea ruled out Dark stools, stool occult blood positive, likely due to gastric cancer Generalized weakness , likely due to cancer but acute gastroenteritis possible, treatment completed, resolved left superficial cephalic venous thrombosis, inoperable, anticoagulation contraindicated due to GI bleed seizure ruled-out, absence seizure ruled out Ruled out acute abdomen Fatigue likely due to cancer Neutrophilia , likely due to cancer Leukocytosis , likely due to cancer Thrombocytopenia Chronic elevated transaminitis and elevated ALP History of acute urinary retention , recurrence possible History of diarrhea and C. diff, currently resolved History of anemia Diabetes Hypertension Current gastric carcinoma, currently on chemotherapy Hyperlipidemia - Patient has ongoing diagnosis of cancer which may be advanced. Recently admitted for acute urinary retention requiring Ng which was to see and prior admitted for edema given Lasix and prior to that recently admitted for C diff with completed vancomycin p.o. oral course. Patient complains of pain and weakness and vague symptoms - Bicarb is elevated getting ABG - on admit WBC leukocytosis elevated with neutrophilia, concern for possible infection - platelets are declining 140-122 - CXR normal, TSH normal, ammonia normal, troponins negative, BNP within normal limits. - 07/13 given GI cocktail x1 with some improvement - CT abdomen pelvis: Findings are suggestive of fluid overload. Moderate to large volume diffuse colonic stool. Distended stomach. - no signs of acute abdomen, SBO, bladder retention -CT head 07/15: Benign scan, no significant findings. - MRI brain 07/18 - negative for any acute process - EEG negative for any epileptic episodes or abnormal wave patterns - stool occult blood positive over weekend 07/19- - other stool studies are negative for Shigella and Campylobacter. - cdiff negative. - 07/23 kub normal bowel gas pattern - 07/24 CT abd repeat due to unremitting po intol: pending test/read. - There are many stable labs which has been elevated/low in the past, including: LFTs are mildly raised with ALP raised, total protein low, albumin low, calcium carotid chest below normal limit. -today: Continuing IV fluid hydration. start laxatives as c diff negative. discharge cancelled d/t still po intolerant, weak and unable to ambulate. will get CT abd, more ivf, continue anti-emetics. continue FLD. if patient continues to improve local home with walker and resume follow up with Oncology.. need hospital bed. - We will rehydrate with IV fluids today continue p.r.n. antiemetics - Stops bowel regimen with miralax, docusate - stop antibiotic. Prior on on broad-spectrum antibiotics Zosyn, cover gi source. - p.r.n. pain control - sliding scale insulin for diabetes mild, hold p.o. meds - full liquid diet, small portion. - Left arm swelling , will eval for DVT - discharge cancelled 07/24 d/t still po intolerant, weak and unable to ambulate. will get CT abd, more ivf, continue anti-emetics. discharge plans (on 07/24 - cancel due to po intol.) - continue carafate, protonix daily - zofran prn for nausea. hold off compazine, contact PCP if needed. - lidocaine suspension po for abdominal pain - full liquid diet - for diarrhea, ok to take 1st line imodium (if fail to resolve x2, then imodium) - for pain, take ms contin 2x/day and if worsening pain take norco 10 3x/day as needed - ambulation with walker only and with assisstance, home PT continue - follow-up with PCP and oncologist to continue care - resume other home medications. - will need to hospital bed. Diet- FLD, small portions. DVT prophylaxis- Lovenox GI prophylaxis- pepcid po bid Med surg DNR DNI Plan discussed with: Son, Other My Orders Orders - JULEITA YOUNG MD Procedure Category Date Status Time Full Liq Diet DIET 07/24/24 Transmitted Lunch Discharge DISCHARGE 07/24/24 Transmitted 13:44 * Fashion Consultant CONS 07/24/24 Transmitted Consult Loperamide Capsule PHA 07/24/24 In Process (Imodium Capsule) 14:30 D5w/Sod Chl 0.45% PHA 07/24/24 In Process (D5w 1/2ns) 15:30 Date of Service: Jul 24, 2024 Billing Provider: JULIETA YOUNG MD Common Visit Codes: [id number] INP/OBS CARE(HIGH) JULIETA YOUNG MD Jul 24, 2024 18:13
[2024-07-25] VITALS (7 sets, daily range): BP systolic 117–140; BP diastolic 74–85; PULSE 78–100; RESP 16–18; TEMP 97.6–98.4; O2SAT 96–100
[2024-07-25] MEDS: ONDANSETRON HCL 4 MG/2 ML VIAL IV SCH (00:09)
--- NOTE | 2024-07-25 10:18 | DVH ---
CT ABDOMEN AND PELVIS WITHOUT CONTRAST CLINICAL HISTORY: UNREMITTING NAUSEA TECHNIQUE: Multiple contiguous axial images of the abdomen and pelvis without intravenous contrast. The images were reformatted degenerate coronal and sagittal reconstructions. All CT scans at this medical facility are performed using dose modulation techniques as appropriate t o a performed exam including the following:Automated exposure control was utilized; adjustment of the MA and/or KV according to patient size; and use of iterative reconstruction technique. Radiation Dose Information: CT Dose: CTDI volume is 7.95 mGy. Dose-length product is 421.78 mGy*cm Comparison: CT CT AB PEL WO CON-NO ORAL OR IV on DOS: 07/13/24, CT CT AB PEL WO CON-NO ORAL OR IV on D OS: 06/19/24 FINDINGS: Evaluation of the abdomen and pelvis is limited without intravenous contrast. The liver, gallbladder, pancreas, kidneys, adrenal glands, and spleen appear within normal limits. There is free fluid in the abdomen and edematous changes in the mesentery. There is no free air. The re is no gross evidence of abdominal lymphadenopathy The stomach grossly appears unremarkable. The small and large bowel loops demonstrate normal caliber and appear within normal limits. The abdominal aorta and IVC appear within normal limits. The bladder appears unremarkable for the degree of distention. Pelvic organ appears within normal chun its. There is no gross evidence of a pelvic mass. There is free fluid in the lower abdomen/ upper pe lvis. There are small bilateral pleural effusions, [id number] with associated atelectasis in t he lung bases. There is stable cardiomegaly. There is no acute osseous abnormality. There is diffuse anasarca of the soft tissues. IMPRESSION: 1. There is no acute process in the abdomen and pelvis. 2. Redemonstrated are findings compatible with fluid overload. HS:Y
--- NOTE | 2024-07-25 11:03 | DVHPN2 ---
Progress Note Date Seen: Jul 25, 2024 Resident Creating Document: NEREYDA ROJAS RESIDENT Has the PT tested + for MRSA If YES, has PT been informed?: Yes Medical Necessity Reason Pt with a Central, PICC or Fol: No Subjective Review of Systems Patient seen and examined at bedside. No new complaints. Tolerating diet Midepigastric pain Episode of nausea. Regular bowel movement Objective vital signs Vital Sign Date Time Temp Pulse Resp B/P (MAP) Pulse Ox O2 Delivery O2 Flow Rate FiO2 07/25/24 09:00 97.9 86 17 117/74 (88) 99 97.9 07/24/24 20:00 Room Air* 0 21 Total Intake and Output 07/24/24 07/24/24 07/25/24 15:00 23:00 07:00 Intake Total 250 ml Balance 250 ml medications Current Medications Medications Dose Ordered Sig/Polina Route Start Time Stop Time Status Last Admin Dose Admin Sucralfate 1 gm BID@0600,2200 PO 07/15/24 22:00 07/25/24 05:28 1 GM Gabapentin 300 mg TID PO 07/15/24 14:00 07/25/24 05:28 300 MG Lorazepam 1 mg ONCE PRN IV 07/18/24 00:45 Enteral Nutritional Formula 240 ml BIDWM PO 07/19/24 18:00 07/25/24 08:00 240 ML Acetaminophen 650 mg Q6HP PRN PO 07/19/24 23:15 07/22/24 21:37 650 MG Fluoxetine HCl 10 mg DAILY PO 07/21/24 10:00 07/24/24 16:35 10 MG Enoxaparin Sodium 30 mg DAILY SC 07/21/24 10:00 07/25/24 09:23 30 MG Temazepam 15 mg HSPRN PRN PO 07/20/24 23:30 07/22/24 21:37 15 MG Iron Sucrose 110 ml @ 110 mls/hr DAILY@1200 IV 07/22/24 12:00 07/26/24 12:59 07/24/24 11:29 110 MLS/HR Acetaminophen/ Hydrocodone Bitart 1 tab Q4HP PRN PO 07/21/24 15:00 07/23/24 05:36 1 TAB Famotidine 20 mg Q12HR PO 07/21/24 22:00 07/25/24 09:23 20 MG Morphine Sulfate 15 mg Q12HR PO 07/23/24 22:00 07/25/24 09:24 15 MG Loperamide HCl 2 mg PRN PRN PO 07/24/24 14:30 Dextrose/Sodium Chloride 1,000 ml @ 100 mls/hr Q10H IV 07/24/24 15:00 Cancel Ondansetron HCl 4 mg Q6HR IV 07/25/24 00:00 07/25/24 05:28 4 MG Prochlorperazine Edisylate 5 mg Q4HPRN PRN IV 07/24/24 18:15 Examination General Appearance: Alert, Answering question Head Exam: Normal inspection Neck Exam: Normal inspection. Non-tender. Normal alignment Pulmonary/Respiratory: Chest non-tender. Clear bilateral breath sounds Cardiovascular/Chest: Regular rate and rhythm. No murmurs. No JVD. Peripheral Pulses: 2+ Radial (R). 2+ Radial (L). 2+ Pedal (R). 2+ Pedal (L) Abdominal Exam: Normal bowel sounds. Soft. Nontender. Ankle Exam: Negative ankle edema Lower extremities: Negative lower extremity edema Neuro/Mental Status: A&O x3 laboratory and microbiology Laboratory Tests 07/23/24 10:04 07/22/24 09:49 Test 07/22/24 09:49 Range/Units Serum Glucose 101 74-106 mg/dL Microbiology Date/Time Source Procedure Growth Status 07/22/24 11:00 Stool Stool Culture - Final Complete 07/22/24 11:00 Stool Shiga Toxin I & II - Final Complete 07/20/24 14:55 Blood Blood Culture - Preliminary NO GROWTH AFTER 72 HOURS OF INCUBATION. Resulted 07/20/24 14:00 Urine - Midstream Clean Catch Urine Culture - Final Complete Problem List/Assessment/Plan Problem List/Assessment/Plan Stool occult positive likely due to gastric adenocarcinoma Iron-deficiency anemia Metastatic gastric adenocarcinoma Possible delirium Acute diarrhea ? Rule out C diff Diabetes mellitus type Hypertension Dyslipidemia Leukocytosis Plan/recommendation Dr. Noe -C diff and stool culture negative . -continue IV Protonix 40 mg daily -hemoglobin stable, no active GI bleed. No acute GI intervention needed at this point. -IV iron for iron-deficiency anemia -IV antibiotic as per primary team. Downgraded antibiotics if necessary. -Hematology-Oncology: Last chemotherapy on 07/09/2024, following in outpatient setting for another PET/CT scan. -physical therapy -poor prognosis -we will continue following the patient. Plan discussed with: Patient, Spouse, Daughter, Other (RN) Dietary Evaluation Review Recommendations by RD: Protein Supplementation Comments: 1) Initiate Glucerna bid 2) Encourage PO intake 3) Continue Zofran prn Expected Outcomes/Goals: 1) appetite and labs to improve 2) f/u in 5 days NEREYDA ROJAS RESIDENT Jul 25, 2024 11:03
[2024-07-25 11:46] LABS: Hematocrit 32.5 % (41.0-53.0); Hemoglobin 10.4 g/dL (13.5-17.5); Mean Corpuscular Hemoglobin 26.2 pg (28.0-32.0); Mean Corpuscular Hgb Conc. 31.9 g/dL (32.0-36.0); Mean Corpuscular Volume 82.1 fL (80.0-100.0); Platelet Count (auto) 112 10^3/uL (140-450); Red Blood Cells 3.96 10^6/uL (4.5-5.90); White Blood Cell 26.5 10^3/uL (4.4-10.8)
[2024-07-25 11:58] LABS: Red Cell Distribution Width 22.7 % (11.8-14.3)
[2024-07-25 12:00] LABS: Band Neutrophils % (manual) 0; Basophils % (manual) 0 (0.0-2.0); Blast Cells 0; Eosinophils % (manual) 0 (0-7); Metamyelocytes % 0; Myelocytes % 0; Promyelocytes % 0; Reactive Lymphocytes 0
[2024-07-25 12:05] LABS: Anion Gap 7 (5-15); BUN/Creatinine Ratio 15.2 (10.0-20.0); Blood Urea Nitrogen 10 mg/dL (9-23); Carbon Dioxide 25 mmol/L (20-31); Chloride 104 mmol/L (98-107); Glucose 86 mg/dL (74-106)
[2024-07-25 12:06] LABS: Alanine Aminotransferase < 9 U/L (7-40); Albumin 2.1 g/dL (3.2-4.8); Alkaline Phosphatase 157 U/L (46-116); Aspartate Aminotransferase 52 U/L (13-40); Bilirubin, Total 0.3 mg/dL (0.2-1.0); Calcium 7.7 mg/dL (8.7-10.4); Potassium 3.5 mmol/L (3.5-5.1); Sodium 136 mmol/L (136-145); Total Protein 4.5 g/dL (5.7-8.2)
[2024-07-25 13:06] LABS: Anisocytosis Slight; Lymphocytes % (manual) 4 (10.0-50.0); Monocytes % (manual) 5 (0-12); Platelet Estimate Decreased
--- NOTE | 2024-07-25 17:28 | DVHDS2 ---
Discharge Summary Date of Admission Jul 13, 2024 at 03:42 Date of Discharge: Jul 25, 2024 Labs/Diagnostic Data: Laboratory Results Test 07/25/24 11:26 07/23/24 10:04 07/22/24 11:00 07/22/24 09:49 White Blood Count 26.5 10^3/uL (4.4-10.8) Red Blood Count 3.96 10^6/uL (4.5-5.90) Hemoglobin 10.4 g/dL (13.5-17.5) Hematocrit 32.5 % (41.0-53.0) Mean Corpuscular Volume 82.1 fL (80.0-100.0) Mean Corpuscular Hemoglobin 26.2 pg (28.0-32.0) Mean Corpuscular Hemoglobin Concent 31.9 g/dL (32.0-36.0) Red Cell Distribution Width 22.7 % (11.8-14.3) Platelet Count 112 10^3/uL (140-450) Mean Platelet Volume 7.4 fL (6.9-10.8) Neutrophils (%) (Auto) % (37.0-80.0) Lymphocytes (%) (Auto) % (10.0-50.0) Monocytes (%) (Auto) % (0.0-12.0) Basophils (%) (Auto) % (0.0-2.0) Neutrophils # (Auto) 10 ^3/uL (1.6-8.6) Lymphocytes # (Auto) 10 ^3/uL (0.4-5.4) Monocytes # (Auto) 10 ^3/uL (0-1.3) Differential Total Cells Counted 100.0 (100) Neutrophils % (Manual) 91 (37.0-80.0) Band Neutrophils % (Manual) 0 Lymphocytes % (Manual) 4 (10.0-50.0) Monocytes % (Manual) 5 (0-12) Eosinophils % (Manual) 0 (0-7) Basophils % (Manual) 0 (0.0-2.0) Metamyelocytes % (manual) 0 Myelocytes % (Manual) 0 Promyelocytes % (Manual) 0 Blast Cells % (Manual) 0 Reactive Lymphocytes 0 Platelet Estimate Decreased Anisocytosis (manual) Slight Sodium Level 136 mmol/L (136-145) Potassium Level 3.5 mmol/L (3.5-5.1) Chloride Level 104 mmol/L (98-107) Carbon Dioxide Level 25 mmol/L (20-31) Anion Gap 7 (5-15) Blood Urea Nitrogen 10 mg/dL (9-23) Creatinine 0.66 mg/dL (0.700-1.30) Glomerular Filtration Rate Calc 106 mL/min (>90) BUN/Creatinine Ratio 15.2 (10.0-20.0) Serum Glucose 86 mg/dL (74-106) Calcium Level 7.7 mg/dL (8.7-10.4) Total Bilirubin 0.3 mg/dL (0.2-1.0) Aspartate Amino Transferase (AST) 52 U/L (13-40) Alanine Aminotransferase (ALT) < 9 U/L (7-40) Alkaline Phosphatase 157 U/L (46-116) Total Protein 4.5 g/dL (5.7-8.2) Albumin 2.1 g/dL (3.2-4.8) Ovalocytes Few Schistocytes Few Stool for White Cells None seen Hypochromasia (manual) Slight Microcytosis Slight Tear Drop Cells Few Test 07/21/24 16:20 07/20/24 12:52 07/19/24 21:27 07/17/24 10:48 Eosinophils (%) (Auto) 0.1 % (0.0-7.0) Eosinophils # (Auto) 0 10 ^3/uL (0-0.8) Basophils # (Auto) 0.1 10 ^3/uL (0-0.2) Nucleated Red Blood Cells 0.2 % POC Glucose 71 mg/dl (70-106) Stool Occult Blood Positive (Negative) Stool Occult Blood Sample #3 (Negative) Phosphorus Level 1.4 mg/dL (2.4-5.1) Magnesium Level 1.7 mg/dL (1.6-2.6) Prolactin 4.81 ng/mL (2.1-17.7) Test 07/13/24 18:28 07/13/24 13:42 07/13/24 04:26 07/13/24 03:30 Blood Gas Specimen Type Arterial Blood Gas Sample Site Left radial Blood Gas Patient Temperature 37.0 Arterial Blood Date Drawn [id number] Arterial Blood pH 7.474 (7.350-7.450) Arterial Blood Partial Pressure CO2 40.1 mmHg (35.0-48.0) Arterial Blood Partial Pressure O2 63.2 mmHg (83.0-108.0) Arterial Blood HCO3 28.8 mmol/L (21.0-28.0) Arterial Blood Oxygen Saturation 92.1 % (94.0-98.0) Arterial Blood Base Excess 4.8 mmol/L (-2.0-3.0) Arterial Blood Oxyhemoglobin 90.5 % (94.0-98.0) Arterial Blood Carboxyhemoglobin 0.8 % (0.5-1.5) Arterial Blood Methemoglobin 0.9 % (0.0-1.5) [place] Test Yes Blood Gas Total Hemoglobin 9.90 g/dL (13.5-17.5) Blood Gas Modality Room air FiO2 % 21.0 Ammonia 21 umol/L (11-32) Thyroid Stimulating Hormone (TSH) 2.87 uIU/mL (0.55-4.78) Urine Color Light-yellow (Yellow) Urine Clarity Clear (Clear) Urine pH 7.0 (5.0-9.0) Urine Specific [place] 1.012 (1.001-1.035) Urine Protein Trace (Negative) Urine Ketones Negative (Negative) Urine Blood Negative /uL (Negative) Urine Nitrite Negative (Negative) Urine Bilirubin Negative (Negative) Urine Urobilinogen Normal mg/dL (Negative) Urine Leukocyte Esterase Negative /uL (Negative) Urine RBC 3 /hpf (0 - 3) Urine Microscopic WBC 4 /HPF (0-3) Urine Squamous Epithelial Cells Few /hpf (<5) Urine Bacteria Few /hpf (None Seen) Urine Mucus Few (None Seen) Urine Yeast (Budding) Occasional /hpf (None Urine Glucose Normal mg/dL (Normal) Test 07/12/24 21:00 07/12/24 19:54 Troponin I High Sensitivity < 3 ng/L (</=54) Prothrombin Time 10.9 sec (9.3-11.8) Prothrombin Time INR 1.03 (0.9-1.15) Activated Partial Thromboplast Time 25.6 SEC (24.5-34.5) B-Type Natriuretic Peptide 19.37 pg/mL (0-100) Other Laboratory Tests 07/25/24 11:26 Brief Hx & Hospital Course: HPI: 64-year-old male with past medical history of anemia, DM, hypertension, M etastatic gastric adenocarcinoma, and hyperlipidemia who presented to [facility] ED with complaint of generalized weakness. Patient reports he has been experiencing left lower quadrant abdominal pain, bilateral leg numbness, and progressively worsening generalized weakness. Status post four cycles of chemotherapy with FLOT and 1st treatment on 05/07/2024 and the 4th treatment on 07/09/2024 summary: Patient has ongoing diagnosis of cancer which may be advanced. Recently admitted for acute urinary retention requiring Ng which was to see and prior admitted for edema given Lasix and prior to that recently admitted for C diff with completed vancomycin p.o. oral course. Patient complains of pain and weakness and vague symptoms. Bicarb is elevated but no hypercarbia on abg. on admit WBC leukocytosis elevated with neutrophilia, concern for possible infection, started on zosyn for gi course. platelets are declining 140-122, likely from zosyn, which later stopped, resulting in improving numbers. CXR normal, TSH normal, ammonia normal, troponins negative, BNP within normal limits. periodically given GI cocktail with some improvement. CT abdomen pelvis: Findings are suggestive of fluid overload. Moderate to large volume diffuse colonic stool. Distended stomach. no signs of acute abdomen, SBO, bladder retention. CT head 07/15: Benign scan, no significant findings. started patient on laxatives resulting in diarrhea, later turning black, SOB+ but will always be + as gastric cancer is an active diagnosis. GI consulted and started protonix and carafate as conservative management. patient has several staring episodes with hypopnea resulting in 2x code rapid which resolves with pain control. neurology consulted for rule-out seizures and workup done shows MRI brain 07/18, negative for any acute process. EEG negative for any epileptic episodes or abnormal wave patterns. stool occult blood positive over weekend 07/19-. Other stool studies are negative for Shigella and Campylobacter. cdiff negative. patient has left hand swelling, U/S dvt study shows left superficial cephalic thrombosis, will need to avoid AC due to GI bleed from cancer, will appoint consevatibe measure with warm compress and coban wrapping whole limb. 07/23 kub normal bowel gas pattern. 07/24 CT abd repeat due to unremitting po intol which shows no acute process. 07/24 hospital bed ordered, with anti-diarrheals, long acting opiate control. 07/25 patient VSS and improved, ambulating. Oncology was consulted and determine patient can continue further scans and treatment outpatient. very poor prognosis, advised to discuss hospice with oncology outpatient. diagnosis: Poor p.o. tolerance and nausea due to Constipation and fecal impaction and advanced cancer with mets, resolving intolerable epigastric pain due to gastric carcinoma, tolerable with orals cdiff ruled out, infectious diarrhea ruled out diarrhea, likely complication from cancer GI bleed, stool occult blood positive, likely due to gastric cancer Generalized weakness , likely due to cancer but acute gastroenteritis possible, treatment completed, resolved left superficial cephalic venous thrombosis, inoperable, anticoagulation contraindicated due to GI bleed seizure ruled-out, absence seizure ruled out, possible due to pain superficial venous thrombosis, left cephalic vein Ruled out acute abdomen Fatigue likely due to cancer Neutrophilia , likely due to cancer Leukocytosis , likely due to cancer Thrombocytopenia Chronic elevated transaminitis and elevated ALP History of acute urinary retention , recurrence possible History of diarrhea and C. diff, currently resolved History of anemia Diabetes Hypertension Current gastric carcinoma, currently on chemotherapy Hyperlipidemia discharge plans: - continue carafate, protonix daily - zofran prn for nausea. hold off compazine, contact PCP if needed. - lidocaine suspension po for abdominal pain - full liquid diet - for diarrhea, ok to take 1st line imodium (if fail to resolve x2, then imodium) - for pain, take ms contin 2x/day and if worsening pain take norco 10 3x/day as needed - ambulation with walker only and with assisstance, home PT continue - hospital bed ordered - follow-up with PCP and oncologist to continue care - resume other home medications. Condition at Discharge: Guarded Final Diagnosis/Problems List Poor p.o. tolerance and nausea due to Constipation and fecal impaction and advanced cancer with mets, resolving intolerable epigastric pain due to gastric carcinoma, tolerable with orals cdiff ruled out, infectious diarrhea ruled out diarrhea, likely complication from cancer GI bleed, stool occult blood positive, likely due to gastric cancer Generalized weakness , likely due to cancer but acute gastroenteritis possible, treatment completed, resolved left superficial cephalic venous thrombosis, inoperable, anticoagulation contraindicated due to GI bleed seizure ruled-out, absence seizure ruled out, possible due to pain superficial venous thrombosis, left cephalic vein Ruled out acute abdomen Fatigue likely due to cancer Neutrophilia , likely due to cancer Leukocytosis , likely due to cancer Thrombocytopenia Chronic elevated transaminitis and elevated ALP History of acute urinary retention , recurrence possible History of diarrhea and C. diff, currently resolved History of anemia Diabetes Hypertension Current gastric carcinoma, currently on chemotherapy Hyperlipidemia Discharge Disposition: Home with Health Services Discharge Instruct/Medications Diet: See Comment Diet comment: full liquid diet Activity: Light activity Activity comment: ambulation with walker only and with assistance Follow Up/Referral: pcp, oncology Medications: below Discharge Statement: "Patient was advised to return to the ER or call 911 if any headaches, dizziness, shortness of breath, chest pain, abdominal pain, bleeding, fevers, or worsening of medical condition. Patient was counseled about treatment plan, medications, possible side effects, patientverbalized understanding. All questions were answered to the best of my ability. This discharge took greater then 30 minutes in planning, reviewing documentation, counseling the patient, and discussing with other team members." DME: Diagnosis: physical deconditioning due to metastatic gastric carcinoma ASSESSMENT ASSESSMENT Assessment Poor p.o. tolerance due to Constipation and fecal impaction and advancedcancer with mets, resolvingintolerable epigastric pain due to gastric carcinoma, tolerable with oralscdiff ruled out, infectious diarrhea ruled outDark stools, stool occult blood positive, likely due to gastric cancerGeneralized weakness , likely due to cancer but acute gastroenteritispossible, treatment completed, resolvedleft superficial cephalic venous thrombosis, inoperable, anticoagulationcontraindicated due to GI bleedseizure ruled-out, absence seizure ruled outRuled out acute abdomenFatigue likely due to cancerNeutrophilia , likely due to cancerLeukocytosis , likely due to cancerThrombocytopenia Chronic elevated transaminitis and elevated ALP History of acute urinary retention , recurrence possible History of diarrhea and C. diff, currently resolvedHistory of anemia Diabetes HypertensionCurrent gastric carcinoma, currently on chemotherapyHyperlipidemia Date of Service: Jul 25, 2024 Billing Provider: JULIETA YOUNG MD Common Visit Codes: 61342-UCM/OBS DISCH DAY >30min JULIETA YOUNG MD Jul 25, 2024 17:28
[2024-07-25] MEDS: PROCHLORPERAZINE EDISYLATE 5 MG/ML 2ML VIAL IV PRN (21:35)
[2024-07-26 05:00] VITALS: BP 117/75; PULSE 109; RESP 18; TEMP 98.2; O2SAT 94
[2024-07-26] MEDS: LIDOCAINE VISCOUS 2% 15ML UD PO ONE (07:49)
[2024-07-26] MEDS: MAALOX PLUS or MAALOX 30 ML PO ONE (07:49)
[2024-07-26] MEDS: MORPHINE SULF 15mg ER tab PO ONE (07:49)
[2024-07-26 09:00] VITALS: BP 129/78; PULSE 100; RESP 20; TEMP 98; O2SAT 95
[2024-07-26 13:00] VITALS: BP 125/73; PULSE 102; RESP 18; TEMP 97.9; O2SAT 99
--- NOTE | 2024-07-26 18:13 | DVHPN2 ---
Subjective update 07/24 07/13-patient is seen in ED bed 9, complaining of epigastric/subxiphoid/left upper quadrant pain, there is some left upper quadrant tender to palpation/epigastrium tender to palpation/xiphoid tender to palpation. Bowel sounds normal, lung sounds normal. No symptoms of nausea and vomiting or diarrhea. Unclear if patient has decreased p.o. intake. Patient has ongoing diagnosis of cancer which may be advanced. Recently admitted for acute urinary retention requiring Ng which was to see and prior admitted for edema given Lasix and prior to that recently admitted for C diff with completed vancomycin p.o. oral course. Patient complains of pain and weakness and vague symptoms. Bicarb is elevated getting ABG, on admit WBC leukocytosis elevated with neutrophilia, concern for possible infection; platelets are declining 140-122. On workup is largely benign CXR normal, TSH normal, ammonia normal, troponins negative, BNP within normal limits,. There are many stable labs which has been elevated/low in the past, including: LFTs are mildly raised with ALP raised, total protein low, albumin low, calcium carotid chest below normal limit. Unclear what is the cause of pain and weakness, we will get CT abdomen to rule out any acute causes. Patient was multiple readmit for multiple different primary issues. Prognosis very poor. 07/14 - lab workup for weakness largely insignificant. CT abdomen with no acute findings but does show large stool burden consistent with high-grade constipation. Patient is feeling a little improved we will try bowel regimen and enema today. Patient was having poor p.o. tolerance likely due to constipation. We will keep patient on full liquid diet. Anticipate 1 more day to improve patient's impaction. Plan today for enema, lactulose, docusate, full liquid diet. 07/15-patient is in pain again since last night. Pain is epigastric corresponding to cancer. Are as above gastric ulcer from NSAIDs. Patient was starts becoming more lethargic and has episodes of nonresponsiveness with some concern of apnea. Patient was given a Toradol and regained some consciousness. Had a family discussion with goals of care and patient decides to be DNR DNI after confirming patient has decision-making capacity A&O times 3-4. Patient discussed with Oncology with plan to discuss hospice an upcoming appointment on Sunday07/21/2024. Given patient's worsening status over the past24 hours, discussion has had with patient's son about hospice with goal to control pain. We will give time to family to make decisions and continue to monitor patient., we will convert. DNR DNI, continue laxatives, continue pain control while avoiding IV purulence which can cause worsening respiratory depression given patient does have already episodes of hypopnea. 07/16 patient feeling improved this morning, upon the bedside. Family is giving him home cooked food which he is enjoying. Initially ready for discharge. Paged at afternoon with complaint of patient acute onset nausea and vomiting. Patient is lethargic again after emesis. Antiemetics given and family discussion had with plan to give more IV fluids clear liquid diet in small portions only and continue pain control. Likely DC tomorrow with close oncology follow up outpatient 07/17-this a.m. patient was called another code assist, he has another episode of staring into space, unresponsive but vitals stable and starts to respond again after a few seconds. Concern for absence seizures, neurology consulted pending prolactin. Patient continues to be in pain, weak, minimal p.o. tolerance. Patient does not seem to be improving and had vomited his pain was last night. Poor prognosis. Family still appears resistant to hospice. 07/18 - more awake alert. tolerating po. informed to intake small, freq amounts. neurology onboard wants to r/o absence seizures. EEG today. 07/21 - EEG and MRI negative, neurology work-uop negative. over weekend patient has dark stools, stool occult blood positive, this is expected as patient already has gastric carcinoma. The patient continues to have loose stools which is preferred over constipation which is primarily recent outpatient admission. The patient feels improved after IV fluids every a.m. and shortness O tolerate solid p.o. intake which then results in severe pain which then results in delirium and being bed-bound status. PT evaluated this a.m. when patient has been on pain and unable to get out of bed. In prior PT evaluation the patient has been doing well and can do well with front wheel walker. Patient and his family are verses sent to hospice discussions and believe the patient can improve based on oncology advice for ongoing treatment with PET scan and chemo. We will discuss with Oncology. Likely poor prognosis. We will give further IV fluids, stop IV antibiotics, resume pain control, trial GI cocktail, restart p.r.n. Imodium, strict full liquid diet only, discussed with Oncology, continue treat symptoms and plan to discharge med feeling symptomatically improved with home walker and home PT, tomorrow. 07/22 - the patient arousable this am. Patient remains weak and minimal verbal. Continues to can be abdominal pain. Family and patient remains resistant to hospice. GI on board. Pending C diff. we will hold off any antidiarrheals until C diff confirmed negative, p.r.n. Imodium was canceled and none was given.. WBCs remain elevated. Diarrhea resumes. Continuing IV fluid hydration. Stopped any laxatives. We will continue full liquid diet. Plan is to continue IV hydration and p.o. full liquid diet and if C diff is negative we will try some antidiarrheals and if patient continues to improve local home with walker and resume follow up with Oncology. 07/23 - since yesterday p.m. patient has been found to having nausea and vomiting. Diarrhea continues although low volume. C diff stool pending. Patient claims to feel weak although is able to be alert and awake. AOx3-4. Complaints she has some brain fatigue. Some darkening of vision. But visual mcbride intact. We will rehydrate with IV fluids today continue p.r.n. antiemetics, with 4-33 diff, other stool studies are negative for Shigella and Campylobacter. We will get KUB to evaluate nausea. 07/24: Continuing IV fluid hydration. start laxatives as c diff negative. discharge cancelled d/t still po intolerant, weak and unable to ambulate. will get CT abd, more ivf, continue anti-emetics. continue FLD. if patient continues to improve local home with walker and resume follow up with Oncology.. need hospital bed. 07/25 patient doing well discharge plan developed hospital bed ordered and processed. Delivery may be delayed as patient's family was unavailable to received the hospital bed. Patient was stable for discharge medically today. See summary from 07/25 07/26 patient is sleeping comfortably at this a.m.. Still has some residual ongoing chronic pains from the gastric carcinoma with Mets. Patient was at baseline. Patient's family requesting gurney transport as patient is requiring significant assistance with ambulation. We will continue with discharge plan. Reviewed: H&P Changes from previous H/P or p: No Changes General: Per HPI Objective Vitals Vital Signs Date Time Temp Pulse Resp B/P (MAP) Pulse Ox O2 Delivery O2 Flow Rate FiO2 07/26/24 13:00 97.9 102 18 125/73 (90) 99 97.9 07/26/24 08:00 Room Air* 0 21 Exam GEN: Healthy appearing, well-developed, NAD. HEENT: NC/AT; MMM. CV: RRR, no m/r/g. LUNGS: Bibasilar rales. ABD: Tenderness epigastrium/left upper quadrant EXT: skin Warm, well perfused. no rashes. No clubbing, cyanosis, or edema. NEURO: Weakness in all extremities 3 of 5. Unclear if sensation is intact. Cranial nerves 2-12 intact. General Appearance: Alert, Oriented X3, Cooperative, No acute distress, Other (stares and goes into blank periodically//but comes back clera and answers questions) Lungs: Clear to auscultation Cardiovascular: Regular rate, Normal S1, Normal S2 Abdomen: Normal bowel sounds, Soft, No tenderness Musculoskeletal: Normal sensory function, Normal motor function, Other (walks to commode//but declined to lift his legs states feels weak) Neuro: Normal speech, Strength at 5/5 X4 ext, Sensation intact Psych/Mental Status: Mental status NL Medications Current Medications Medications Dose Ordered Sig/Polina Route Start Time Stop Time Status Last Admin Dose Admin Dextrose/Sodium Chloride 1,000 ml @ 100 mls/hr Q10H IV 07/24/24 15:00 Cancel Laboratory Results Laboratory Tests 07/25/24 11:26 Urinalysis Test 07/13/24 03:30 Urine Color Light-yellow (Yellow) Urine Clarity Clear (Clear) Urine pH 7.0 (5.0-9.0) Urine Specific [place] 1.012 (1.001-1.035) Urine Protein Trace (Negative) H Urine Ketones Negative (Negative) Urine Blood Negative /uL (Negative) Urine Nitrite Negative (Negative) Urine Bilirubin Negative (Negative) Urine Urobilinogen Normal mg/dL (Negative) Urine Leukocyte Esterase Negative /uL (Negative) Urine RBC 3 /hpf (0 - 3) Urine Microscopic WBC 4 /HPF (0-3) H Urine Squamous Epithelial Cells Few /hpf (<5) Urine Bacteria Few /hpf (None Seen) H Urine Mucus Few (None Seen) Urine Yeast (Budding) Occasional /hpf (None Urine Glucose Normal mg/dL (Normal) Microbiology Microbiology Date/Time Source Procedure Growth Status 07/22/24 11:00 Stool Stool Culture - Final Complete 07/22/24 11:00 Stool Shiga Toxin I & II - Final Complete 07/20/24 14:55 Blood Blood Culture - Final NO GROWTH AFTER 5 DAYS OF INCUBATION. Complete 07/20/24 14:00 Urine - Midstream Clean Catch Urine Culture - Final Complete Labs and/or images reviewed: Labs reviewed by me, Image(s) reviewed by me Assessment/Plan Assessment/Plan 07/26 patient is sleeping comfortably at this a.m.. Still has some residual ongoing chronic pains from the gastric carcinoma with Mets. Patient was at baseline. Patient's family requesting gurney transport as patient is requiring significant assistance with ambulation. We will continue with discharge plan. diagnosis: Poor p.o. tolerance due to Constipation and fecal impaction and advanced cancer with mets, resolving intolerable epigastric pain due to gastric carcinoma, tolerable with orals cdiff ruled out, infectious diarrhea ruled out Dark stools, stool occult blood positive, likely due to gastric cancer Generalized weakness , likely due to cancer but acute gastroenteritis possible, treatment completed, resolved left superficial cephalic venous thrombosis, inoperable, anticoagulation contraindicated due to GI bleed seizure ruled-out, absence seizure ruled out Ruled out acute abdomen Fatigue likely due to cancer Neutrophilia , likely due to cancer Leukocytosis , likely due to cancer Thrombocytopenia Chronic elevated transaminitis and elevated ALP History of acute urinary retention , recurrence possible History of diarrhea and C. diff, currently resolved History of anemia Diabetes Hypertension Current gastric carcinoma, currently on chemotherapy Hyperlipidemia - Patient has ongoing diagnosis of cancer which may be advanced. Recently admitted for acute urinary retention requiring Ng which was to see and prior admitted for edema given Lasix and prior to that recently admitted for C diff with completed vancomycin p.o. oral course. Patient complains of pain and weakness and vague symptoms - Bicarb is elevated getting ABG - on admit WBC leukocytosis elevated with neutrophilia, concern for possible infection - platelets are declining 140-122 - CXR normal, TSH normal, ammonia normal, troponins negative, BNP within normal limits. - 07/13 given GI cocktail x1 with some improvement - CT abdomen pelvis: Findings are suggestive of fluid overload. Moderate to large volume diffuse colonic stool. Distended stomach. - no signs of acute abdomen, SBO, bladder retention -CT head 07/15: Benign scan, no significant findings. - MRI brain 07/18 - negative for any acute process - EEG negative for any epileptic episodes or abnormal wave patterns - stool occult blood positive over weekend 07/19- - other stool studies are negative for Shigella and Campylobacter. - cdiff negative. - 07/23 kub normal bowel gas pattern - 07/24 CT abd repeat due to unremitting po intol: pending test/read. - There are many stable labs which has been elevated/low in the past, including: LFTs are mildly raised with ALP raised, total protein low, albumin low, calcium carotid chest below normal limit. -today: Continuing IV fluid hydration. start laxatives as c diff negative. discharge cancelled d/t still po intolerant, weak and unable to ambulate. will get CT abd, more ivf, continue anti-emetics. continue FLD. if patient continues to improve local home with walker and resume follow up with Oncology.. need hospital bed. - We will rehydrate with IV fluids today continue p.r.n. antiemetics - Stops bowel regimen with miralax, docusate - stop antibiotic. Prior on on broad-spectrum antibiotics Zosyn, cover gi source. - p.r.n. pain control - sliding scale insulin for diabetes mild, hold p.o. meds - full liquid diet, small portion. - Left arm swelling , will eval for DVT - discharge cancelled 07/24 d/t still po intolerant, weak and unable to ambulate. will get CT abd, more ivf, continue anti-emetics. discharge plans (on 07/24 - cancel due to po intol.) - continue carafate, protonix daily - zofran prn for nausea. hold off compazine, contact PCP if needed. - lidocaine suspension po for abdominal pain - full liquid diet - for diarrhea, ok to take 1st line imodium (if fail to resolve x2, then imodium) - for pain, take ms contin 2x/day and if worsening pain take norco 10 3x/day as needed - ambulation with walker only and with assisstance, home PT continue - follow-up with PCP and oncologist to continue care - resume other home medications. - will need to hospital bed. Diet- FLD, small portions. DVT prophylaxis- Lovenox GI prophylaxis- pepcid po bid Med surg DNR DNI Plan discussed with: Other My Orders Orders - JULIETA YOUNG MD Procedure Category Date Status Time * [facility] CONS 07/26/24 Transmitted Consult Date of Service: Jul 26, 2024 Billing Provider: JULIETA YOUNG MD Common Visit Codes: [id number] INP/OBS CARE(MOD) JULIETA YOUNG MD Jul 26, 2024 18:13
== END 2024-07-26 16:12 | disposition home health service (06) | DRG 720 ==
LOC: EDBD 18:44 → ER 18:44 → OVERFLOW 07-13 03:42 → TELE-WESTW 07-14 14:49 → TELE-EAST 07-18 12:34 → EAST 07-24 00:18
PROVIDERS: ADMIT Student in an Organized Health Care Education/Training Program; ATTEND Student in an Organized Health Care Education/Training Program
DX: A41.9 Sepsis, unspecified organism (principal); G93.41 Metabolic encephalopathy; D61.818 Other pancytopenia; C77.9 Secondary and unspecified malignant neoplasm of lymph node, unspecified; C16.9 Malignant neoplasm of stomach, unspecified; C78.6 Secondary malignant neoplasm of retroperitoneum and peritoneum; E11.40 Type 2 diabetes mellitus with diabetic neuropathy, unspecified; D50.9 Iron deficiency anemia, unspecified; A04.9 Bacterial intestinal infection, unspecified; I82.612 Acute embolism and thrombosis of superficial veins of left upper extremity; E86.0 Dehydration; E78.5 Hyperlipidemia, unspecified; G89.3 Neoplasm related pain (acute) (chronic); K56.41 Fecal impaction; F41.9 Anxiety disorder, unspecified; T39.395A Adverse effect of other nonsteroidal anti-inflammatory drugs [NSAID], initial encounter; Z66 Do not resuscitate; R74.01 Elevation of levels of liver transaminase levels; I10 Essential (primary) hypertension; K25.7 Chronic gastric ulcer without hemorrhage or perforation; Z88.0 Allergy status to penicillin; Z80.0 Family history of malignant neoplasm of digestive organs; Z82.49 Family history of ischemic heart disease and other diseases of the circulatory system; Z74.01 Bed confinement status; Y92.89 Other specified places as the place of occurrence of the external cause; Z79.4 Long term (current) use of insulin; Z79.899 Other long term (current) drug therapy
CPT/HCPCS: 36415; 36600; 70450; 70551; 71045; 71101; 73030; 74018; 74176; 80048; 80053; 81001; 82140; 82270; 82805; 82962; 83735; 83880; 84100; 84132; 84146; 84443; 84484; 85007; 85025; 85027; 85048; 85610; 85730; 86850; 86900; 86901; 87040; 87045; 87086; 87427; 87493; 93005; 93971; 95819; 96365; 96367; 96375; 96376; 97110; 97163; 99291; G0378; J1756; J1885; J2003; J2212; J2405; J2470; J2543; J3490; J7042